=== PATIENT | female | born 1940 | race Caucasian/White ===

== ENCOUNTER 2019-07-04 11:44 | Inpatient (IN) | payer MEDICARE, OTHER, SELFPAY ==
[2019-07-04] VITALS (11 sets, daily range): BP systolic 119–226; BP diastolic 44–104; PULSE 59–85; RESP 16–20; TEMP 36.8–36.9; O2SAT 92–96; BMI 26.0
--- NOTE | 2019-07-04 12:48 | ED_ITS ---
Entered by Valeria Solis, acting as scribe for HPI - General Adult General: Chief complaint: General Medical Stated complaint: [place] sent her over for high BP Time Seen by Provider: 07/04/19 12:48 Source: patient and family Mode of arrival: ambulatory Limitations: no limitations History of Present Illness: HPI narrative: 79 yo female presents with high blood pressure. pt states she was sent by PCP clinic for high blood pressure. pt has a little pain to her right side. pt states nothing else hurts and she has no other symptoms at this time. pt states nothing makes this better or worse. complaint: high blood pressure Onset (ago): day(s) (today) Severity: mild Pain Consistency: other (no pain) Relieving factors: none Exacerbating factors: none Associated symptoms: Deny chest pain, dyspnea, malaise, nausea, rash or vomiting Treatments prior to arrival: none Review of Systems Const: Denies: fever, chills, body aches, change in appetite, fatigue or malaise ENMT: Denies: throat pain, ear pain, nasal discharge or nasal congestion Card: Denies: chest pain, edema, shortness of breath on exertion or shortness of breath when lying down Resp: Denies: shortness of breath, productive cough or non-productive cough GI: Denies: abdominal pain, nausea, vomiting, vomiting blood, coffee grounds in vomit, diarrhea, constipation, bloating, blood in stool or black tarry stool : Denies: flank pain, difficulty urinating, painful urination, urinary frequency or urinary urgency Skin/Breast: Denies: rash or itching PFSH ED PFSH: Statuses (acute, chronic, etc) shown below reflect problem list status as previously entered and may not be historically accurate Medical History Chronic low back pain (Acute) Coronary artery disease (Acute) GERD (gastroesophageal reflux disease) (Acute) History of chronic hypertension (Acute) History of gallstones (Acute) History of hypothyroidism (Acute) History of GA (myocardial infarction) (Acute) History of pneumonia (Acute) Surgical History History of heart artery stent (Acute) History of tubal ligation (Acute) Family History (Updated 07/04/19 @ 13:21 by Valeria Solis) Other CAD (coronary artery disease) Hypertension Social History Smoking and tobacco status: never smoked Physical Exam Const: COMMON NORMALS: no apparent distress GENERAL APPEARANCE: cooperative and comfortable ORIENTATION/CONSCIOUSNESS: Yes awake, Yes oriented to person, Yes oriented to place and Yes oriented to time HENMT: COMMON NORMALS: normocephalic, head/scalp atraumatic, hearing grossly normal bilaterally, external ears normal, EAC's normal, TM's normal bilaterally, nasal mucous membranes and turbinates normal, moist oral mucous membranes and oropharynx normal HEAD & SCALP: normocephalic and atraumatic NOSE: nasal mucous membranes and turbinates normal EXTERNAL EAR: Yes external ears normal EXTERNAL AUDITORY CANAL: EAC's normal TYMPANIC MEMBRANE: TM's normal bilaterally Eye: COMMON NORMALS: PERRL, EOMs intact bilaterally, conjunctivae normal and no scleral icterus CONJUNCTIVA: Yes conjunctivae normal PUPIL: Yes PERRL Neck/C-Spine: COMMON NORMALS: full ROM, no lymphadenopathy, supple and no JVD Lymph: LYMPHATIC: no lymphadenopathy noted and no lymphedema noted Resp: COMMON NORMALS: normal respiratory effort, no retractions, no use of accessory muscles and clear to auscultation bilaterally AUSCULTATION: clear to auscultation bilaterally Cardio: COMMON NORMALS: no JVD, regular rate, regular rhythm and no murmurs RATE: regular rate RHYTHM: regular rhythm Extremity: COMMON NORMALS: normal to inspection, normal capillary refill, no clubbing, cyanosis or edema, no calf tenderness and no pedal edema Neuro: SENSORIUM/ORIENTATION: Yes oriented to person, Yes oriented to place an d Yes oriented to time Skin: COMMON NORMALS: no rashes or lesions noted GENERAL SKIN EXAM: no r ashes or lesions noted Course ED course: Patient has multiple medications including hydralazine and clonidine that she states she cannot take she is already on an ARB her creatinine is elevated some from it has in the what it is been in the past. Despite several oral medications were unable to get her blood pressure down. We will go ahead and admit her she has significantly elevated blood pressure will require sodium nitroprusside to lower we will put her in the ICU. Discussed Dr. Bui. Vital Signs: Vital signs: Vital Signs Temperature 98.6 F 07/05/19 16:00 Pulse Rate 57 L 07/05/19 16:00 Respiratory Rate 20 H 07/05/19 16:00 Blood Pressure 156/58 07/05/19 16:00 Pulse Oximetry 95 07/05/19 16:00 [facility] - General Adult Lab Data: Labs: Lab Results 07/04/19 07/04/19 07/04/19 Range/Units 13:17 13:17 13:17 WBC 5.8 (4.0-10.0) 10^3/ uL RBC 3.89 L (4.1-5.3) 10^6/u L Hgb 12.2 (11.5-15.3) g/dL Hct 38.8 (37.0-47.0) % MCV 99.7 H (81-99) fL MCH 31.4 (28.0-34.0) pg MCHC 31.4 (30.0-36.0) g/dL RDW 13.0 (12.1-15.1) % Plt Count 229 (130-400) 10^3/c mm MPV 10.9 H (7.4-10.4) fL Neut % (Auto) 61.2 % Lymph % (Auto) 26.1 % [place] % (Auto) 8.3 % Eos % (Auto) 3.0 % Baso % (Auto) 1.2 % Neut # (Auto) 3.5 (1.8-7.7) 10^3/u L Lymph # (Auto) 1.5 (0.8-4.8) 10^3/u L [place] # (Auto) 0.5 (0.2-0.9) 10^3/u L Eos # (Auto) 0.2 (0.0-0.8) 10^3/u L Baso # (Auto) 0.1 (0.0-0.1) 10^3/u L Nucleated RBC % (a uto) 0 % Nucleated RBCs # 0.0 /100WBC Sodium 138 (136-145) mmol/L Potassium 4.6 (3.5-5.1) mmol/L Chloride 101 (98-107) mmol/L Carbon Dioxide 24 (22-29) mmol/L Anion Gap 17.6 (5-19) BUN 23 (8-23) mg/dL Creatinine 1.4 H (0.5-0.9) mg/dL Glucose 101 (74-106) mg/dL Calcium 9.9 (8.8-10.2) mg/Dl Total Bilirubin 0.5 (0.15-1.2) mg/dL AST 17 (0-32) U/L ALT 8 (0-33) U/L Alkaline Phosphata se 104 (35-105) IU/L Troponin T Baselin e 31 H (0-10) ng/mL Troponin T 120 Min [place] (0-10) ng/mL Delta Troponin T (0-10) ABS# Total Protein 7.6 (6.6-8.7) g/dL Albumin 4.4 (3.5-5.2) g/dL Globulin 3.2 (1.3-4.6) g/dL 07/04/19 Range/Units 15:52 WBC (4.0-10.0) 10^3/ uL RBC (4.1-5.3) 10^6/u L Hgb (11.5-15.3) g/dL Hct (37.0-47.0) % MCV (81-99) fL MCH (28.0-34.0) pg MCHC (30.0-36.0) g/dL RDW (12.1-15.1) % Plt Count (130-400) 10^3/c mm MPV (7.4-10.4) fL Neut % (Auto) % Lymph % (Auto) % [place] % (Auto) % Eos % (Auto) % Baso % (Auto) % Neut # (Auto) (1.8-7.7) 10^3/u L Lymph # (Auto) (0.8-4.8) 10^3/u L [place] # (Auto) (0.2-0.9) 10^3/u L Eos # (Auto) (0.0-0.8) 10^3/u L Baso # (Auto) (0.0-0.1) 10^3/u L Nucleated RBC % (a uto) % Nucleated RBCs # /100WBC Sodium (136-145) mmol/L Potassium (3.5-5.1) mmol/L Chloride (98-107) mmol/L Carbon Dioxide (22-29) mmol/L Anion Gap (5-19) BUN (8-23) mg/dL Creatinine (0.5-0.9) mg/dL Glucose (74-106) mg/dL Calcium (8.8-10.2) mg/Dl Total Bilirubin (0.15-1.2) mg/dL AST (0-32) U/L ALT (0-33) U/L Alkaline Phosphata se (35-105) IU/L Troponin T Baselin e (0-10) ng/mL Troponin T 120 Min [place] 28.44 H (0-10) ng/mL Delta Troponin T -2.56 L (0-10) ABS# Total Protein (6.6-8.7) g/dL Albumin (3.5-5.2) g/dL Globulin (1.3-4.6) g/dL Imaging Data^: CXR: Radiologist's impression: [place] [address] XRay Report Signed Patient: Kati Chris JMR#: [id number] : 2Acct:[id number] Age/Sex: 79 / FADM Date: 07/04/19 Loc: ER Attending Dr: Ordering Physician: Sukumar Arrington DO Date of Service: 07/04/19 Procedure(s): XR chest 1V portable [id number] Accession Number(s): [id number] Report Number: [id number] WS: [id number] CHEST XRAY TECHNIQUE: Portable chest. CLINICAL INFORMATION: accelerated HTN COMPARISON: FINDINGS: Heart: Normal cardiac silhouette. Lungs: Chronic emphysematous changes. No acute pulmonary infiltrates. No focal pneumonia. Bones: Normal visualized bony structures. XR/XR chest 1V portable [id number] IMPRESSION: No acute chest findings Dictated By:Soctt Gonzalez MD Signed By:Scott Gonzalez MDSigned Date/Time:07/04/19 1343 DD/ 1341 Discharge Plan Discharge Patient Disposition: Admitted As Inpatient Admit Provider: Doe Bui Discharge Date/Time: 07/04/19 20:04 Coding Level of Care Code ED Handbag Parts Cutter for Chg Fwd Exam Problem Focused The documentation recorded by the Will ward Bridget Annette, accurately reflects the service I personally performed and the decisions made by me, Sukumar Arrington, Jul 04, 2019 11:44
--- NOTE | 2019-07-04 13:05 | ECG_ITS ---
Measurements Intervals [place] Rate: 60 P: 61 IN: 169 QRS: -46 QRSD: 161 T: 92 QT: 472 QTc: 472 SINUS RHYTHM MARKED LEFT AXIS DEVIATION [QRS AXIS < -30] LEFT BUNDLE BRANCH BLOCK [120+ ms QRS DURATION, 80+ ms Q/S IN V1/V2, 85+ ms R IN I/aVL/V5/V6] Compared to ECG 09/04/2018 21:17:40 No significant changes Electronically Signed On 07-04-2019 15:39:58 LVN by Tone Ludwig M.D. [id number]
--- NOTE | 2019-07-04 13:05 | XR_ITS ---
WS: [id number] CHEST XRAY TECHNIQUE: Portable chest. CLINICAL INFORMATION: accelerated HTN COMPARISON: FINDINGS: Heart: Normal cardiac silhouette. Lungs: Chronic emphysematous changes. No acute pulmonary infiltrates. No focal pneumonia. Bones: Normal visualized bony structures. XR/XR chest 1V portable [id number] IMPRESSION: No acute chest findings
[2019-07-04 13:22] LABS: Basophils # 0.1 10^3/uL (0.0-0.1); Basophils % 1.2 %; Eosinophils # 0.2 10^3/uL (0.0-0.8); Hematocrit 38.8 % (37.0-47.0); Hemoglobin 12.2 g/dL (11.5-15.3); Lymphocytes # 1.5 10^3/uL (0.8-4.8); Lymphocytes % 26.1 %; Mean Corpuscular HGB Conc 31.4 g/dL (30.0-36.0); Mean Corpuscular Hemoglobin 31.4 pg (28.0-34.0); Mean Corpuscular Volume 99.7 fL (81-99); Mean Platelet Volume 10.9 fL (7.4-10.4); Monocytes # 0.5 10^3/uL (0.2-0.9); Monocytes % 8.3 %; Neutrophils # 3.5 10^3/uL (1.8-7.7); Neutrophils % 61.2 %; Nucleated Red Blood Cells % 0 %; Platelet Count 229 10^3/cmm (130-400); Red Blood Count 3.89 10^6/uL (4.1-5.3); White Blood Count 5.8 10^3/uL (4.0-10.0)
[2019-07-04] MEDS: amlodipine 10 mg Tablet PO (13:41)
[2019-07-04 13:45] LABS: Alanine Aminotransferase 8 U/L (0-33); Albumin Level 4.4 g/dL (3.5-5.2); Alkaline Phosphatase 104 IU/L (35-105); Anion Gap 17.6 (5-19); Aspartate Amino Transferase 17 U/L (0-32); Blood Urea Nitrogen 23 mg/dL (8-23); Calcium 9.9 mg/Dl (8.8-10.2); Carbon Dioxide 24 mmol/L (22-29); Chloride 101 mmol/L (98-107); Globulin 3.2 g/dL (1.3-4.6); Glucose 101 mg/dL (74-106); Potassium 4.6 mmol/L (3.5-5.1); Sodium 138 mmol/L (136-145); Total Bilirubin 0.5 mg/dL (0.15-1.2); Total Protein 7.6 g/dL (6.6-8.7)
[2019-07-04 13:46] LABS: Troponin(5th) Baseline 31 ng/mL (0-10)
--- NOTE | 2019-07-04 14:47 | PC.PHAR ---
rx filled on 06/04/19 for bactrim ds pt states it made her joints have pain and painful swallowing, pt also had nitrofurantoin mono filled on 05/28/19 pt states it made her stomach hurt
[2019-07-04] MEDS: isosorbide mononitrate ER 60 mg Tablet PO (15:51)
[2019-07-04 16:30] LABS: Troponin 5 2HR 28.44 ng/mL (0-10)
[2019-07-04 16:44] LABS: Troponin 5 2HR Delta -2.56 ABS# (0-10)
--- NOTE | 2019-07-04 19:05 | ECG_ITS ---
Measurements Intervals [place] Rate: 76 P: 53 VT: 163 QRS: -28 QRSD: 155 T: 101 QT: 442 QTc: 498 SINUS RHYTHM LEFT BUNDLE BRANCH BLOCK [120+ ms QRS DURATION, 80+ ms Q/S IN V1/V2, 85+ ms R IN I/aVL/V5/V6] WARNING: DATA QUALITY MAY AFFECT INTERPRETATION Compared to ECG 07/04/2019 13:20:57 Left-axis deviation no longer present Electronically Signed On 07-05-2019 14:02:08 FITNESS SUPERVISOR by Susan Marquez M.D. [email or web address]
--- NOTE | 2019-07-04 19:48 | PC.NURSE ---
pt placed in gown. no further needs at this time.
--- NOTE | 2019-07-04 20:00 | PC.NURSE ---
Received patient from [place] from ER via stretcher. Patient alert and orientated x 3 and had Nitroprusside running at 1 mcg through and IV in the right wrist. Patient steady to feet with minimal assistance and transferred to bed with no problems. No skin issues noted, patient wears brief for mild incontinence.
--- NOTE | 2019-07-04 20:15 | CTR_ITS ---
PROCEDURE INFORMATION: Exam: CT Head Without Contrast Exam date and time: 07/04/2019 9:34 PM Age: 79 years old Clinical indication: Other: Hypertensive crisis TECHNIQUE: Imaging protocol: Computed tomography of the head without contrast. Total DLP: 860.65 mGy-cm Radiation optimization: All CT scans at this facility use at least one of these dose optimization techniques: automated exposure control; mA and/or kV adjustment per patient size (includes targeted exams where dose is matched to clinical indication); or iterative reconstruction. COMPARISON: No relevant prior studies available. FINDINGS: Brain: No acute intracranial hemorrhage or mass effect. There is very mild decreased attenuation in the periventricular white matter, likely from microvascular disease. No definite acute infarct by CT. MRI could be more sensitive/specific for detection, as clinically directed. Ventricles: Ventricle size is normal for age. Bones/joints: No definite acute skull fracture. Sinuses: Mild focal opacity in left ethmoid sinus. 12 mm retention cyst or polyp in the sphenoid sinus. Included paranasal sinuses otherwise appear essentially clear. Mastoid air cells: No significant acute finding. CT/CT head wo con* [id number] IMPRESSION: 1. No acute intracranial hemorrhage or mass effect. 2. No definite acute infarct by CT, see above. 3. Other findings discussed above. Radiation Dose CTDIVOL = (mGy): DLP = 860.65 (mGy-cm)
[2019-07-04 23:08] LABS: Troponin 5 6HR 28.37 ng/L (0-10)
--- NOTE | 2019-07-04 23:40 | PC.NURSE ---
Patient taken to CT by myself via wheel chair on continuous monitoring. Vitals signs stable and Nitroprusside running at 1 mcg.
--- NOTE | 2019-07-04 23:55 | PC.NURSE ---
Patient brought back from CT via wheel chair. Blood pressure became elevated in route back, the reading was 199/65; nitroprusside increased to 2 mcg. Patient is stable and vitals look great. After increasing the nitroprusside to 2 mcg, BP came down to 129/55
[2019-07-05] VITALS (17 sets, daily range): BP systolic 121–182; BP diastolic 42–94; PULSE 57–96; RESP 16–22; TEMP 37–37.2; O2SAT 92–95
[2019-07-05] MEDS: HYDROcodone-acetaminophen 7.5-325 mg Tablet 1 TAB PO ×3 (01:11→17:45)
[2019-07-05 05:31] LABS: Basophils % 0.6 %; Eosinophils # 0.1 10^3/uL (0.0-0.8); Eosinophils % 1.5 %; Hematocrit 35.9 % (37.0-47.0); Hemoglobin 11.7 g/dL (11.5-15.3); Lymphocytes # 1.3 10^3/uL (0.8-4.8); Lymphocytes % 19.3 %; Mean Corpuscular HGB Conc 32.6 g/dL (30.0-36.0); Mean Corpuscular Hemoglobin 32.8 pg (28.0-34.0); Mean Corpuscular Volume 100.6 fL (81-99); Mean Platelet Volume 11.6 fL (7.4-10.4); Monocytes # 0.7 10^3/uL (0.2-0.9); Monocytes % 10.1 %; Neutrophils # 4.7 10^3/uL (1.8-7.7); Neutrophils % 68.2 %; Nucleated Red Blood Cells % 0 %; Platelet Count 235 10^3/cmm (130-400); Red Blood Count 3.57 10^6/uL (4.1-5.3); Red Cell Distribution Width 13.2 % (12.1-15.1); White Blood Count 6.8 10^3/uL (4.0-10.0)
[2019-07-05 05:50] LABS: Alanine Aminotransferase 10 U/L (0-33); Albumin Level 4.5 g/dL (3.5-5.2); Alkaline Phosphatase 89 IU/L (35-105); Anion Gap 17.3 (5-19); Aspartate Amino Transferase 18 U/L (0-32); Blood Urea Nitrogen 23 mg/dL (8-23); Calcium 9.6 mg/Dl (8.8-10.2); Carbon Dioxide 23 mmol/L (22-29); Chloride 101 mmol/L (98-107); Glucose 126 mg/dL (74-106); Phosphorus 3.7 mg/dL (2.5-4.5); Potassium 4.3 mmol/L (3.5-5.1); Sodium 137 mmol/L (136-145); Total Bilirubin 0.7 mg/dL (0.15-1.2); Total Protein 6.5 g/dL (6.6-8.7)
--- NOTE | 2019-07-05 08:40 | PM.HP ---
Providers/Chief Complaint Admitting Physician: Doe Bui MD Primary Care Provider: Doe Bui MD Chief Complaint: [facility] sent her over for high BP History of Present Illness Kati Chris is a 79 year old female with past medical history of hypertension, coronary artery disease, hypothyroidism, chronic low back pain, GERD who presented to my clinic on 07/04/2019 with elevated blood pressure. Her blood pressure was 240/95 in clinic. For this reason she was sent to the emergency department. In the emergency department the patient's blood pressure would not decrease below 200 systolic. For this reason she was started on a nitroprusside drip and admitted to hospital. Currently the patient is feeling nauseous. She denies any significant diarrhea. She denies any chest pains and shortness of breath. She denies any headache. The patient has not tolerated other medications well in the past for her blood pressure. Amlodipine caused a significant rash, hydralazine causes her to have significant tremors, and clonidine has caused rebound hypertension. She is currently on felodipine 10 mg daily, telmisartan 80 mg once daily and isosorbide 60 mg once daily. Review of Systems Const: Denies: fever Card: Denies: chest pain or palpitations Resp: Denies: shortness of breath, productive cough or wheezing GI: Reports: abdominal pain and nausea : Denies: flank pain or painful urination Medications/Allergies Home Medications Medication Instructions Recorded Confirmed Last Taken Type aspirin 325 mg PO DAILY 07/04/19 07/04/19 07/04/19 History clonidine HCl 0.1 mg PO TID 07/04/19 07/04/19 07/04/19 08:00 History clopidogrel [Plavix] 75 mg PO DAILY 07/04/19 07/04/19 07/04/19 History estradiol 1 mg PO DAILY 07/04/19 07/04/19 06/29/19 History felodipine 10 mg PO DAILY 07/04/19 07/04/19 07/03/19 History hydrocodone-acetaminophen [[place]] 1 tab PO QID PRN 07/04/19 07/04/19 07/04/19 History isosorbide mononitrate 60 mg PO DAILY 07/04/19 07/04/19 07/04/19 History krill oil 1,000 mg PO DAILY 07/04/19 07/04/19 07/04/19 History levothyroxine 75 mcg PO DAILY 07/04/19 07/04/19 07/04/19 History multivitamin 1 tab PO DAILY 07/04/19 07/04/19 07/04/19 History potassium chloride 20 meq PO DAILY 07/04/19 07/04/19 07/03/19 History telmisartan 80 mg PO DAILY 07/04/19 07/04/19 07/04/19 History torsemide 5 mg PO DAILY 07/04/19 07/04/19 07/04/19 History Allergies Allergy/AdvReac Type Severity Reaction Status Date / Time clonidine [From Catapres] Allergy ALGY-Bliste Verified 07/04/19 12:47 r PFSH Acute PFSH: Statuses (acute, chronic, etc) shown below reflect problem list status as previously entered and may not be historically accurate Medical History Chronic low back pain (Acute) Coronary artery disease (Acute) GERD (gastroesophageal reflux disease) (Acute) History of chronic hypertension (Acute) History of gallstones (Acute) History of hypothyroidism (Acute) History of OR (myocardial infarction) (Acute) History of pneumonia (Acute) Surgical History History of heart artery stent (Acute) History of tubal ligation (Acute) Family History (Updated 07/04/19 @ 13:21 by Valeria Solis) Other CAD (coronary artery disease) Hypertension Social History Smoking and tobacco status: never smoked Vitals/I&O/Wt Last Vital Signs Temp 98.9 F 07/05/19 06:00 Pulse 85 07/05/19 08:30 Resp 20 H 07/05/19 08:30 BP 150/69 07/05/19 08:30 Pulse Ox 95 07/05/19 08:30 07/04/19 07/05/19 07/05/19 22:59 06:59 14:59 Intake Total 252 / 252 352.000 / 352.000 Balance 252 / 252 352.000 / 352.000 Weight last 48 hrs Weight 64.495 kg Weight 62.596 kg Physical Exam HENMT: MOUTH: oral and palatal mucosa normal and tongue normal Resp: COMMON NORMALS: normal respiratory effort and no retractions EFFORT & INSPECTION: No tachypneic and No respiratory distress AUSCULTATION: no crackles, no rales, no rhonchi and no wheezes Cardio: RHYTHM: regular rhythm HEART SOUNDS: S1 normal and no murmurs GI: COMMON NORMALS: normal to inspection, nondistended, normoactive bowel sounds INSPECTION: Yes normal to inspection OTHER: Mild pain in the right mid abdomen without rebound tenderness. Extremity: OTHER: Trace edema in the bilateral lower extremities A&P Additional A&P Information Additional A&P Information: 1. Hypertensive urgency -the patient is currently on a nitroprusside drip. This has been increased up to 4 mcg. We will restart her home medications of felodipine 10 mg and losartan 100 mg here. Continue with isosorbide mononitrate 60 mg. I will add prazosin 1 mg twice daily and atenolol 25 mg once a day. The hope will be that we can get her blood pressure into a range that we can start weaning the drip. If we continue to have problems with this, I will contact cardiology for further recommendations. 2. Coronary artery disease -stable at this time. Troponins are currently not showing signs of an acute OR. 3. Hypothyroidism -stable. 4. Prophylaxis -Lovenox Attestations Medical Necessity Statement*: The patient will be here for greater than 2 midnight stay due to treatment of hypertensive urgency. Critical Care Time: Critical care time: 30 - 74 mins Coding Level of Care Code Acute Freight Service Inspector for Lawrence Begum
[2019-07-05] MEDS: atenolol 50 mg Tablet 25 MG PO (09:05)
[2019-07-05] MEDS: aspirin 325 mg Tablet PO (09:06)
[2019-07-05] MEDS: multivitamin therapeutic Tablet 1 TAB PO (09:06)
[2019-07-05] MEDS: clopidogrel 75 mg Tablet PO (09:06)
[2019-07-05] MEDS: levothyroxine 150 mcg Tablet 75 MCG PO (09:06)
[2019-07-05] MEDS: losartan 50 mg Tablet 100 MG PO (09:07)
[2019-07-05] MEDS: isosorbide mononitrate ER 60 mg Tablet PO (09:07)
[2019-07-05] MEDS: enoxaparin 40 mg/0.4 mL Syringe SUBCUT (09:07)
[2019-07-05] MEDS: ondansetron 2 mg/ML SDV 2 mL 4 MG IVP (09:07)
[2019-07-05] MEDS: prazosin 1 mg Capsule PO ×2 (09:14→17:45)
--- NOTE | 2019-07-05 10:45 | ECG_ITS ---
Measurements Intervals [place] Rate: 59 P: 55 CA: 174 QRS: -39 QRSD: 160 T: 161 QT: 493 QTc: 489 SINUS BRADYCARDIA MARKED LEFT AXIS DEVIATION [QRS AXIS < -30] LEFT BUNDLE BRANCH BLOCK [120+ ms QRS DURATION, 80+ ms Q/S IN V1/V2, 85+ ms R IN I/aVL/V5/V6] Compared to ECG 07/04/2019 13:20:57 Sinus rhythm no longer present Electronically Signed On 07-05-2019 13:47:21 RESIDENT PROGRAMS ASSISTANT by Susan Marquez M.D. [id number]
--- NOTE | 2019-07-05 20:15 | USCV_ITS ---
Kati Chris Age: 79 Gender: F : 1940 Exam Date: 07/05/2019 06:00 Ordering Phys: Sukumar Arrington DO Technologist: Grace Cespedes Exam Location: [facility] [place] Indication: HTN Aortic Velocity @ SMA (cm/s) 84.6 RIGHT KIDNEY LEFT KIDNEY Velocity (cm/s) Velocity (cm/s) Sys/Pacheco Sys/Pacheco Resistive Index Resistive Index 40.2 / 9.0 0.78 Proximal Renal Artery 29.0 / 8.1 0.72 63.1 / 12.5 0.80 Mid Renal Artery 31.7 / 7.5 0.76 57.5 / 11.8 0.80 Distal Renal Artery 39.7 / 9.7 0.76 24.9 / 8.3 0.67 Hilar 55.3 / 9.1 0.83 19.1 / 6.0 0.69 Upper Pole 15.6 / 4.3 0.72 17.6 / 6.9 0.61 Mid Pole 23.9 / 7.5 0.69 24.8 / 6.6 0.73 Lower Pole 38.7 / 8.1 0.79 0.70 Renal Aortic Ratio 0.47 Accleration Index (cm/sec2) 418.00 Hilar 3855.0 0 336.00 Upper Pole 309.00 297.00 Mid Pole 359.00 452.00 Lower Pole 515.00 98.3 Kidney Length (mm) 84.5 FINDINGS ?SOLID LESION LT K? CONCLUSIONS 1. Suggestion of 2.4 x1.7cm hypoechoic lesion left kidney is indeterminate. Recommend further evaluation with contrast CT abdomen/pelvis. Previous CT 2018 reviewed and demonstrates cortical lobulation lower pole, and recommend further evaluation of todays lesion with CT for comparison. 2. Normal color flow Doppler, peak systolic velocities, Renal/Aortic peak systolic velocity ratio and resistive indices noted in bilateral main, segmental and interlobar renal arteries. Scott Gonzalez MD (Electronically Signed) Final Date: 05 July 2019 09:10 S
[2019-07-05 23:03] LABS: Add Urine Microscopic? NO
[2019-07-05 23:12] LABS: Bilirubin Urine Neg (NEGATIVE); Blood Urine Neg (Negative); Glucose Urine UA Norm (Normal); Ketones Urine Negative (Negative); Leukocyte Esterase Urine Negative (Negative); Nitrate Urine Negative (Negative); Protein Urine Neg (Negative); Urine Appearance Clear (CLEAR); Urine Color Straw (Yellow); Urobilinogen Urine Norm (Negative); pH Urine 5 (5-7)
[2019-07-06] VITALS (14 sets, daily range): BP systolic 100–206; BP diastolic 42–82; PULSE 53–60; RESP 12–57; TEMP 36.4–37.4; O2SAT 92–97
[2019-07-06] MEDS: HYDROcodone-acetaminophen 7.5-325 mg Tablet 1 TAB PO ×4 (03:35→21:32)
[2019-07-06 04:57] LABS: Basophils # 0.1 10^3/uL (0.0-0.1); Basophils % 1.1 %; Eosinophils # 0.2 10^3/uL (0.0-0.8); Eosinophils % 3.8 %; Hematocrit 35.3 % (37.0-47.0); Hemoglobin 11.5 g/dL (11.5-15.3); Lymphocytes # 1.7 10^3/uL (0.8-4.8); Lymphocytes % 32.8 %; Mean Corpuscular HGB Conc 32.6 g/dL (30.0-36.0); Mean Corpuscular Hemoglobin 33.3 pg (28.0-34.0); Mean Corpuscular Volume 102.3 fL (81-99); Mean Platelet Volume 11.9 fL (7.4-10.4); Monocytes # 0.6 10^3/uL (0.2-0.9); Monocytes % 11.4 %; Neutrophils # 2.7 10^3/uL (1.8-7.7); Neutrophils % 50.7 %; Nucleated Red Blood Cells % 0 %; Platelet Count 198 10^3/cmm (130-400); Red Blood Count 3.45 10^6/uL (4.1-5.3); Red Cell Distribution Width 13.3 % (12.1-15.1); White Blood Count 5.3 10^3/uL (4.0-10.0)
[2019-07-06 05:56] LABS: Alanine Aminotransferase 10 U/L (0-33); Albumin Level 3.8 g/dL (3.5-5.2); Alkaline Phosphatase 83 IU/L (35-105); Anion Gap 15.7 (5-19); Aspartate Amino Transferase 16 U/L (0-32); Blood Urea Nitrogen 22 mg/dL (8-23); Calcium 9.5 mg/Dl (8.8-10.2); Carbon Dioxide 23 mmol/L (22-29); Chloride 101 mmol/L (98-107); Globulin 2.5 g/dL (1.3-4.6); Glucose 103 mg/dL (74-106); Magnesium 2.2 mg/dL (1.7-2.3); Phosphorus 3.8 mg/dL (2.5-4.5); Potassium 4.7 mmol/L (3.5-5.1); Sodium 135 mmol/L (136-145); Total Bilirubin 0.4 mg/dL (0.15-1.2); Total Protein 6.3 g/dL (6.6-8.7)
--- NOTE | 2019-07-06 08:00 | CT_ITS ---
WS: [id number] CT ABDOMEN PELVIS TECHNIQUE: Contrast-enhanced CT of the abdomen and pelvis with coronal and sagittal reformatted image s. CLINICAL INFORMATION: Renal mass COMPARISON: CT 1 9,019 DLP: 522.[address] scans at [facility] use at least one of these dose optimization techniques: automat ed exposure control; mA and/or kV adjustment per patient size (includes targeted exams where dose is matched to clinical indication); or iterative reconstruction. FINDINGS: Cortical lobulation lower pole left kidney is unchanged since July 05, 2018. No definite focal mas s. Stable 6 mm left renal cyst. No hydronephrosis. Bilateral renal cortical atrophy. Stable small right cortical cyst. Normal liver. Dense cholelithiasis. No gallbladder wall thickening. Pancreatic fatty atrophy. Sigmoid diverticulosis. No evidence of acute diverticulitis. No evidence of small or large bowel obst ruction. No free fluid in the pelvis. Dense vascular calcification. Tortuous abdominal aorta. Lung ba ses are well aerated. Lumbar scoliosis convex right. CT/CT abdomen pelvis w con* [id number] IMPRESSION: 1. Stable lobulation lower pole left kidney with normal renal parenchymal enha ncement. No focal mass. 2. Left renal cortical atrophy. No hydronephrosis. 3. Dense cholelithiasis. No gallbladder wall thickening or pericholecystic flu id. 4. Densely calcified abdominal aorta. 5. No abdominal lymphadenopathy. 6. No free fluid in the pelvis. 7. Diverticulosis. 8. Lumbar scoliosis convex right.
[2019-07-06] MEDS: iodixanol 320 mg/mL 100mL Btl IV (08:53)
[2019-07-06] MEDS: atenolol 50 mg Tablet 25 MG PO (09:16)
[2019-07-06] MEDS: aspirin 325 mg Tablet PO (09:16)
[2019-07-06] MEDS: enoxaparin 40 mg/0.4 mL Syringe SUBCUT (09:17)
[2019-07-06] MEDS: clopidogrel 75 mg Tablet PO (09:17)
[2019-07-06] MEDS: isosorbide mononitrate ER 60 mg Tablet PO (09:18)
[2019-07-06] MEDS: prazosin 1 mg Capsule PO ×3 (09:52→21:32)
[2019-07-06] MEDS: multivitamin therapeutic Tablet 1 TAB PO (09:52)
[2019-07-06] MEDS: levothyroxine 150 mcg Tablet 75 MCG PO (09:52)
[2019-07-06] MEDS: losartan 50 mg Tablet 100 MG PO (09:54)
--- NOTE | 2019-07-06 12:33 | PM.PN ---
Subjective Subjective: Interval history: The patient feels that she was able to rest last night. She has not had any further nausea or vomiting. The patient denies any chest pains or shortness of breath. She denies any abdominal pain at this time. Medications: Reviewed: Yes Vitals/I&O/Wt Last Vital Signs Temp 97.6 F 07/06/19 11:16 Pulse 53 L 07/06/19 11:16 Resp 15 07/06/19 11:16 BP 100/63 07/06/19 11:16 Pulse Ox 97 07/06/19 11:16 07/05/19 07/06/19 07/06/19 22:59 06:59 14:59 Intake Total 720 / 1771.530 0 / 1771.530 302.563 / 302.563 Balance 720 / 1771.530 0 / 1771.530 302.563 / 302.563 Weight last 48 hrs Weight 65.062 kg Weight 64.495 kg Weight 62.596 kg Physical Exam Narrative: EXAM NARRATIVE: Mouth: Pharynx without erythema or lesions. Cardiac: Regular rhythm with bradycardia. No murmurs appreciated. Lungs: Clear to auscultation bilaterally. No wheezes crackles or rhonchi. Abdomen: Soft, nontender, no rebound tenderness or bloating. No hepatosplenomegaly appreciated. Extremities: Trace pitting edema in the bilateral lower extremities. A&P Additional A&P Information Additional A&P Information: 1. Hypertensive urgency - the patient is currently on a nitroprusside drip. This has been decreased down to 1 mcg. We will continue her home medications of felodipine 10 mg and losartan 100 mg here. Continue with isosorbide mononitrate 60 mg. Her blood pressure is improving with the addition of prazosin and atenolol. Continue with atenolol 25 mg once daily. Increase prazosin to 1 mg 3 times daily. If her blood pressure is improving sufficiently, we will stop the nitroprusside drip and discharge home. Possibly home in the next 1 to 2 days depending on her course. The patient's renal arteries do not show any signs of stenosis. Head CT is negative. 2. Coronary artery disease -stable at this time. Troponins are currently not showing signs of an acute [place]. The patient does not have any chest pains. 3. Hypothyroidism -stable. 4. Left renal mass -this is stable compared to CT scan done 1 year ago. 5. Chronic kidney disease -stable at this time. 6. Prophylaxis -Lovenox Attestations Medical Necessity Statement*: The patient continues to need inpatient care for hypertensive urgency as she is on an IV drip. We will plan to discharge her home once she is off of the drip and stable. Time Spent in Patient Care: 16 - 35 minutes Critical Care Time: 30 minutes Coding Level of Care Code Acute Injection Machine Operator for Lawrence Begum
--- NOTE | 2019-07-06 15:35 | PC.CHAP ---
Pastoral Care Encounter/Spiritual Assessment Type of Contact [] Declined professor of journalism visit [] Patient/Family/Request visit [] Outpatient visit [] Follow-up visit [] Physician referral [] Code/Alert [x] Routine visit [] Staff referral [] Actively dying [] Patient sleeping [] Family support [] [] Out of room [] Palliative care [] [] Receiving care in room [] Pre-surgical visit [] Trauma [] Long length of stay [] ICU visit [] Other: Relational/Emotional Strength [x] Patient feels connected with others/family/visitors/staff [] Distress [] Loneliness/isolation [] Abandonment Spirituality of Patient [x] Person of Radha [] Attends Hindu of their Radha[x] Believes in Prayer [] Reads Bible or Religion materials [] There are Spiritual issues to be addressed Art Professor Interventions [x] Prayer [x] Active listening [x] Non-anxious presence [x] Spiritual/emotional support [] Crisis/trauma care [] Spiritual counseling [] Bereavement support [] Provided bereavement packet [] Provided Bible/devotional materials [] Provided toy/stuffed animal, coloring book to patient or family member [] Completed spiritual assessment [] Provided Communion [] Anointing/[place] [] Salvation [] Other: Impact on Illness or Injury [] Angry [] Fearful [] Anxious [] Often cries [] Exhaustion [] Unable to work [] Unable to attend rastafari [] Unable to walk/stand [] Unable to read [] Unable to drive [] Unable to eat/drink [] Unable to sleep [] Unable to be with family [] Other: Summary Time spent with patient patient was smiling and sitting up in chair visiting with . patient was in good spirits. 10 min.
[2019-07-07] VITALS (14 sets, daily range): BP systolic 129–229; BP diastolic 56–98; PULSE 54–64; RESP 13–17; TEMP 36.4–36.8; O2SAT 94–97
--- NOTE | 2019-07-07 01:41 | PC.NURSE ---
Nipride gtt restarted at this time.
[2019-07-07] MEDS: HYDROcodone-acetaminophen 7.5-325 mg Tablet 1 TAB PO ×3 (02:38→13:26)
[2019-07-07 04:25] LABS: Basophils # 0.1 10^3/uL (0.0-0.1); Basophils % 0.9 %; Eosinophils # 0.3 10^3/uL (0.0-0.8); Eosinophils % 4.8 %; Hematocrit 35.1 % (37.0-47.0); Lymphocytes # 1.5 10^3/uL (0.8-4.8); Lymphocytes % 28.2 %; Mean Corpuscular HGB Conc 31.3 g/dL (30.0-36.0); Mean Corpuscular Hemoglobin 31.3 pg (28.0-34.0); Mean Platelet Volume 11.6 fL (7.4-10.4); Monocytes # 0.7 10^3/uL (0.2-0.9); Monocytes % 11.9 %; Nucleated Red Blood Cells % 0 %; Platelet Count 203 10^3/cmm (130-400); Red Blood Count 3.51 10^6/uL (4.1-5.3); Red Cell Distribution Width 13.1 % (12.1-15.1); White Blood Count 5.5 10^3/uL (4.0-10.0)
[2019-07-07 04:41] LABS: Alanine Aminotransferase 8 U/L (0-33); Albumin Level 3.7 g/dL (3.5-5.2); Alkaline Phosphatase 91 IU/L (35-105); Anion Gap 15.8 (5-19); Aspartate Amino Transferase 17 U/L (0-32); Blood Urea Nitrogen 22 mg/dL (8-23); Calcium 9.4 mg/Dl (8.8-10.2); Carbon Dioxide 23 mmol/L (22-29); Chloride 100 mmol/L (98-107); Glucose 96 mg/dL (74-106); Potassium 4.8 mmol/L (3.5-5.1); Sodium 134 mmol/L (136-145); Total Bilirubin 0.4 mg/dL (0.15-1.2); Total Protein 6.7 g/dL (6.6-8.7)
[2019-07-07] MEDS: ondansetron 2 mg/ML SDV 2 mL 4 MG IVP (06:44)
[2019-07-07] MEDS: losartan 50 mg Tablet 100 MG PO (08:36)
[2019-07-07] MEDS: isosorbide mononitrate ER 60 mg Tablet PO (08:37)
[2019-07-07] MEDS: levothyroxine 150 mcg Tablet 75 MCG PO (08:37)
[2019-07-07] MEDS: aspirin 325 mg Tablet PO (08:38)
[2019-07-07] MEDS: clopidogrel 75 mg Tablet PO (08:38)
[2019-07-07] MEDS: atenolol 50 mg Tablet 25 MG PO (08:39)
[2019-07-07] MEDS: multivitamin therapeutic Tablet 1 TAB PO (08:40)
[2019-07-07] MEDS: enoxaparin 40 mg/0.4 mL Syringe SUBCUT (08:40)
--- NOTE | 2019-07-07 08:47 | PC.NURSE ---
anxious want iv medication off .. i want to go home i felt good until i came in here now i cant rest and my back hurts.. pain med given and reposition am meds given
--- NOTE | 2019-07-07 09:55 | PC.NURSE ---
up to bathroom requesting blood pressure cuff off need rest nipride back on
--- NOTE | 2019-07-07 10:12 | P.PN_ITS ---
Subjective Subjective: Interval history: Chart reviewed, blood pressure remains poorly controlled despite being on multiple oral antihypertensives. Patient seen and examined, at bedside, has just been taken off the nitroglycerin drip so we will need to continue to monitor her blood pressure. Patient is quite eager to go home this afternoon, discussed need to make sure her blood pressure is controlled off the nitro drip which she is agreeable to. Has not been off nitroglycerin for at least 2 to 3 hours and blood pressure is holding in the 150s systolic. Medications: Reviewed: Yes Medication Review Details: Active Medications Generic Name Dose Route Start Last Admin Trade Name Freq PRN Reason Stop Dose Admin Hydrocodone Bitart /Acetaminophen 1 tab 07/04/19 20:21 07/07/19 08:38 [place] 7.5-325 Mg PO 1 tab QID PRN Administration Pain Aspirin 325 mg 07/05/19 09:00 07/07/19 08:38 Aspirin PO 325 mg DAILY IMMANUEL Administration Atenolol 25 mg 07/05/19 09:00 07/07/19 08:39 Tenormin PO 25 mg DAILY IMMANUEL Administration Clopidogrel Bisulf ate 75 mg 07/05/19 09:00 07/07/19 08:38 Plavix PO 75 mg DAILY IMMANUEL Administration Enoxaparin Sodium 40 mg 07/05/19 09:00 07/07/19 08:40 Lovenox SUBCUT 40 mg Q24H IMMANUEL Administration Felodipine 10 mg 07/05/19 09:00 07/07/19 08:37 Plendil PO 10 mg DAILY IMMANUEL Administration Sodium Nitroprussi de 50 mg/ 252 mls @ 0 mls/h r 07/04/19 17:30 07/07/19 07:08 Dextrose IV 1 mcg/kg/min .Q0M IMMANUEL 18.9 mls/hr Titration Protocol Per Protocol Isosorbide Mononit rate 60 mg 07/05/19 09:00 07/07/19 08:37 Imdur PO 60 mg DAILY IMMANUEL Administration Levothyroxine Sodi um 75 mcg 07/05/19 09:00 07/07/19 08:37 Synthroid PO 75 mcg DAILY IMMANUEL Administration Losartan Potassium 100 mg 07/05/19 09:00 07/07/19 08:36 Cozaar PO 100 mg DAILY IMMANUEL Administration Multivitamins Ther apeutic 1 tab 07/05/19 09:00 07/07/19 08:40 Multivitamin Tab PO 1 tab DAILY IMMANUEL Administration Ondansetron HCl 4 mg 07/05/19 08:32 07/07/19 06:44 Zofran IVP 4 mg Q6H PRN Administration NAUSEA AND VOMITI NG Potassium Chloride 10 meq 07/07/19 09:00 07/07/19 08:39 Klor-Con 10 PO 10 meq DAILY IMMANUEL Administration Prazosin HCl 1 mg 07/06/19 15:00 07/06/19 21:32 Minipress PO 1 mg TID IMMANUEL Administration clonidine [From Catapres] Allergy (Verified 07/05/19 19:19) ALGY-Blister Vitals/I&O/Wt Last Vital Signs Temp 97.6 F 07/07/19 06:27 Pulse 64 07/07/19 09:25 Resp 16 07/07/19 09:25 BP 212/98 07/07/19 09:25 Pulse Ox 97 07/07/19 09:25 07/06/19 07/07/19 07/07/19 22:59 06:59 14:59 Intake Total 369.437 / 852.000 18.366 / 870.366 367.29 / 367.29 Balance 369.437 / 852.000 18.366 / 870.366 367.29 / 367.29 Weight last 48 hrs Weight 65.045 kg Weight 65.062 kg Physical Exam Const: COMMON NORMALS: no apparent distress and oriented x3 GENERAL APPEARANCE: cooperative and comfortable ORIENTATION/CONSCIOUSNESS: Yes awake HENMT: COMMON NORMALS: normocephalic, head/scalp atraumatic, hearing grossly normal bilaterally and moist oral mucous membranes HEAD & SCALP: normocephalic and atraumatic Eye: COMMON NORMALS: PERRL, EOMs intact bilaterally and conjunctivae normal CONJUNCTIVA: Yes conjunctivae normal PUPIL: Yes PERRL Neck/C-Spine: COMMON NORMALS: full ROM GENERAL: Yes normal visual inspection and Yes trachea midline Resp: COMMON NORMALS: normal respiratory effort, no retractions, no use of accessory muscles and clear to auscultation bilaterally EFFORT & INSPECTION: Yes able to speak in complete sentences, Yes symmetric chest movement and No tachypneic AUSCULTATION: clear to auscultation bilaterally Cardio: COMMON NORMALS: regular rate, regular rhythm, S1 normal heart sound, S2 normal heart sound and no murmurs RATE: regular rate RHYTHM: regular rhythm HEART SOUNDS: S1 normal and S2 normal GI: COMMON NORMALS: normal to inspection, nondistended, normoactive bowel sounds, soft to palpation and non-tender PALPATION: Yes soft Extremity: COMMON NORMALS: normal to inspection, full ROM and no clubbing, cyanosis or edema; negative for no pedal edema Neuro: COMMON NORMALS: oriented x3, moves all extremities, no focal motor deficits, no sensory deficits noted and gait normal Psych: COMMON NORMALS: mental status grossly normal, thought process normal, cooperative, affect normal and speech normal SPEECH: Yes normal speech THOUGHT PROCESS: normal thought process Skin: COMMON NORMALS: no rashes or lesions noted, no jaundice, no petechiae and no mottling GENERAL SKIN EXAM: no rashes or lesions noted A&P Assessment and plan (1) Hypertension: -Presented with hypertensive urgency, blood pressure is still inconsistently controlled and patient remains on nitroglycerin drip as well as multiple oral antihypertensives. Wean off nitroglycerin drip as tolerated -Reviewed renal ultrasound with no evidence of stenosis. Patient has a known left renal cyst that seems to be stable on imaging -CT head unremarkable; chest x-ray negative -Continue to monitor blood pressure closely -Review of medical record shows that patient has been admitted previously for hypertensive urgency. Has history of intolerance to multiple medications including amlodipine, hydralazine, clonidine, chlorthalidone -May require cardiology evaluation if continued difficulty with blood pressure control -Most recent echo on record done in 2017 showing ejection fraction of 45%, noted wall motion abnormalities, grade 1 diastolic dysfunction, trace MR -telemetry monitoring -low salt diet -renal function at baseline, lytes wnl Status: Acute Qualifiers: Hypertension type: essential hypertension Qualified Code(s): I10 - Essential (primary) hypertension Code(s): I10 - Essential (primary) hypertension Additional A&P Information Additional A&P Information: -CKD stage 2; baseline Cr 1.2-1.3 -Hypothyroidism -GERD -Multilevel DJD, dextroscoliosis -known L renal mass -CAD s/p stenting; on ASA, Plavix -low salt diet as tolerated -DVT ppx with Lovenox -Dispo: home -Code status: FULL code Attestations Medical Necessity Statement*: Patient will possibly be discharged this afternoon if blood pressure is controlled off nitroglycerin drip. Time Spent in Patient Care: 16 - 35 minutes (>than 50% of time spent in counselling and/or direct pt care on unit) . Coding Level of Care Code Acute Farm Specialist for Inag Fwd Exam Problem Focused Diagnoses Hypertension I10 Hypertension type: essential hypertension
[2019-07-07] MEDS: prazosin 1 mg Capsule PO (10:50)
--- NOTE | 2019-07-07 13:14 | P.DS_ITS ---
Discharge Providers Date of Admission: 07/04/19 17:47 Date of Discharge: 07/07/19 Attending Provider at Admission: Doe Bui MD Attending Provider at Discharge: Jolanta English MD Primary Care Provider: Doe Bui MD Diagnoses at Discharge Discharge Diagnosis (1) Hypertension: Status: Acute Problem details: -Presented with hypertensive urgency, blood pressure now better controlled and she is off NTG drip. She is to continue multiple oral antihypertensives. -Reviewed renal ultrasound with no evidence of stenosis. Patient has a known left renal cyst that seems to be stable on imaging -CT head unremarkable; chest x-ray negative -Continue to monitor blood pressure closely -Review of medical record shows that patient has been admitted previously for hypertensive urgency. Has history of intolerance to multiple medications including amlodipine, hydralazine, clonidine, chlorthalidone -May require cardiology evaluation if continued difficulty with blood pressure control -Most recent echo on record done in 2017 showing ejection fraction of 45%, noted wall motion abnormalities, grade 1 diastolic dysfunction, trace MR -telemetry monitoring -low salt diet -renal function at baseline, lytes wnl Qualifiers: Hypertension type: essential hypertension Qualified Code(s): I10 - Essential (primary) hypertension Reason for Visit Reason for Visit: Reason For Visit: Ramya sent her over for high BP Hospital Course Hospital Course: Patient was admitted to ICU for close monitoring of her blood pressure given hypertensive urgency and need for nitroglycerin drip as well as multiple oral antihypertensives. Unfortunately she has been unable to tolerate several oral antihypertensives including clonidine, amlodipine, hydralazine. We were eventually able to wean her off the nitroglycerin drip and with appropriate titration of her oral antihypertensive medications she has been able to maintain her blood pressure in the 150-160/70-90 range. She is encouraged to continue to monitor her blood pressure at home and keep a log for review with her primary care provider. She will be discharged home today with the medications listed below including the addition of atenolol and prazosin. She is encouraged to seek medical attention immediately should her symptoms return. She is currently hemodynamically stable, asymptomatic, ambulatory, tolerating oral intake without difficulty. She is to follow-up with Dr. Bui next week. Physical Exam Const: COMMON NORMALS: no apparent distress and oriented x3 GENERAL APPEARANCE: cooperative and comfortable ORIENTATION/CONSCIOUSNESS: Yes awake HENMT: COMMON NORMALS: normocephalic, head/scalp atraumatic, hearing grossly normal bilaterally and moist oral mucous membranes HEAD & SCALP: normocephalic and atraumatic Eye: COMMON NORMALS: PERRL, EOMs intact bilaterally and conjunctivae normal CONJUNCTIVA: Yes conjunctivae normal PUPIL: Yes PERRL Neck/C-Spine: COMMON NORMALS: full ROM GENERAL: Yes normal visual inspec tion and Yes trachea midline Resp: COMMON NORMALS: normal respiratory effort, no retractions, no use of accessory muscles and clear to auscultation bilaterally EFFORT & INSPECTION: Yes able to speak in complete sentences, Yes symmetric chest movement and No tachypneic AUSCULTATION: clear to auscultation bilaterally Cardio: COMMON NORMALS: regular rate, regular rhythm, S1 normal heart sound, S2 normal heart sound and no murmurs RATE: regular rate RHYTHM: regular rhythm HEART SOUNDS: S1 normal and S2 normal GI: COMMON NORMALS: normal to inspection, nondistended, normoactive bowel sounds, soft to palpation and non-tender PALPATION: Yes soft Extremity: COMMON NORMALS: normal to inspection, full ROM and no clubbing, cyanosis or edema; negative for no pedal edema Neuro: COMMON NORMALS: oriented x3, moves all extremities, no focal motor deficits, no sensory deficits noted and gait normal Psych: COMMON NORMALS: mental status grossly normal, thought process normal, cooperative, affect normal and speech normal SPEECH: Yes normal speech THOUGHT PROCESS: normal thought process Skin: COMMON NORMALS: no rashes or lesions noted, no jaundice, no petechiae and no mottling GENERAL SKIN EXAM: no rashes or lesions noted Discharge Data Data Completed and Pending: Completed Studies During Hospitalization Category Date Time Status CT abdomen pelvis w con* [id number] Rout ine Cat Scan 07/06/19 08:[address] head wo con* [id number] Routine Cat Scan 07/04/19 20:15 Completed XR chest 1V dale ble [id number] Urgent Exams 07/04/19 13:05 Completed CV renal doppler [id number] Routine Ultrasound 07/05/19 20:15 Completed Pending at discharge Category Date Time Status Troponin(5th) 6 h our Routine Lab 07/04/19 19:17 Received Urine Culture Rou mathew Lab 07/05/19 22:55 Received Labs from last 24 hours 07/07/19 07/07/19 03:26 03:26 WBC 5.5 RBC 3.51 L Hgb 11.0 L Hct 35.1 L MCV 100.0 H MCH 31.3 MCHC 31.3 RDW 13.1 Plt Count 203 MPV 11.6 H Neut % (Auto) 54.0 Lymph % (Auto) 28.2 [place] % (Auto) 11.9 Eos % (Auto) 4.8 Baso % (Auto) 0.9 Neut # (Auto) 3.0 Lymph # (Auto) 1.5 [place] # (Auto) 0.7 Eos # (Auto) 0.3 Baso # (Auto) 0.1 Nucleated RBC % (a uto) 0 Nucleated RBCs # 0.0 Sodium 134 L Potassium 4.8 Chloride 100 Carbon Dioxide 23 Anion Gap 15.8 BUN 22 Creatinine 1.1 H Glucose 96 Calcium 9.4 Total Bilirubin 0.4 AST 17 ALT 8 Alkaline Phosphata se 91 Total Protein 6.7 Albumin 3.7 Globulin 3.0 Vitals: Last Vital Signs Temp 97.6 F 07/07/19 06:27 Pulse 64 07/07/19 12:00 Resp 14 07/07/19 12:00 BP 158/84 07/07/19 12:00 Pulse Ox 95 07/07/19 12:00 Discharge Plan Discharge Patient Disposition: Home, Self-Care Condition: Stable Prescriptions: New prazosin 1 mg Capsule 1 mg PO TID 30 Days Qty: 90 RF: 0 atenolol 50 mg Tablet 25 mg PO DAILY 30 Days Qty: 30 RF: 0 Continued Plavix 75 mg Tablet 75 mg PO DAILY RF: 0 levothyroxine 75 mcg Tablet 75 mcg PO DAILY RF: 0 isosorbide mononitrate 60 mg Tablet Extended Release 24 Hr 60 mg PO DAILY RF: 0 estradiol 1 mg Tablet 1 mg PO DAILY RF: 0 torsemide 5 mg Tablet 5 mg PO DAILY RF: 0 [place] 7.5-325 mg Tablet 1 tab PO QID PRN (Reason: Pain) RF: 0 telmisartan 80 mg Tablet 80 mg PO DAILY RF: 0 felodipine 10 mg Tablet Extended Release 24 Hr 10 mg PO DAILY RF: 0 potassium chloride 20 mEq Tablet Extended Release 20 meq PO DAILY RF: 0 multivitamin Tablet 1 tab PO DAILY RF: 0 aspirin 325 mg Tablet 325 mg PO DAILY RF: 0 krill oil 500 mg Capsule 1,000 mg PO DAILY RF: 0 Discontinued clonidine HCl 0.1 mg Tablet 0.1 mg PO TID RF: 0 Discharge Orders: Discharge Order (Routine); Ordered 07/07/19 Ordered By: Jolanta English Referrals: Doe Bui MD [Primary Care Provider] - 1-3 days (Follow up on BP) Discharge Diet: Low Salt Discharge Activity: Resume usual activity Activity Restrictions/Additional Instructions: Please continue to monitor BP at home and keep a log for review with Dr. Bui Please seek medical attention immediately if symptoms return Discharge Attestations Time Spent in Discharge Care*: greater than 30 min Specific Discharge Activities: Specific discharge activities: educating patient and evaluating patient/reviewing data Quality Metrics Clinical Quality Measures During this hospital stay, did patient experience: None Coding Level of Care Code Acute Consumer Marketing Specialist for Lawrence Fwd Diagnoses Hypertension I10 Hypertension type: essential hypertension
== END 2019-07-07 14:42 | disposition home or self-care (01) | DRG 305 ==
LOC: ER 13:32 → ICU 18:35
PROVIDERS: Admitting Provider Family Medicine; Emergency Provider Family Medicine; Family Provider Family Medicine; PCP Family Medicine; Visit Provider Family Medicine
DX: I16.0 Hypertensive urgency (principal); I10 Essential (primary) hypertension; I25.10 Atherosclerotic heart disease of native coronary artery without angina pectoris; Z95.5 Presence of coronary angioplasty implant and graft; K21.9 Gastro-esophageal reflux disease without esophagitis; E03.9 Hypothyroidism, unspecified; G89.29 Other chronic pain; M54.5 Low back pain; N28.89 Other specified disorders of kidney and ureter; I25.2 Old myocardial infarction
CPT/HCPCS: 36415; 70450; 71045; 74177; 80053; 81003; 83735; 84100; 84484; 85025; 86141; 87086; 93005; 93975; 96372; 96375; 99281; J1650; J2405; Q9967

== ENCOUNTER → 2020-03-04 10:59 | Outpatient (BNVA) | payer MEDICARE, OTHER, SELFPAY | PROVIDERS: Family Provider Family Medicine; PCP Family Medicine; Referring Provider Dermatology; Visit Provider Dermatology | DX: L82.1 Other seborrheic keratosis (principal); D69.2 Other nonthrombocytopenic purpura; D23.9 Other benign neoplasm of skin, unspecified | CPT/HCPCS: 99203 ==

== ENCOUNTER → 2020-10-07 10:35 | Outpatient (BNVA) | payer MEDICARE, OTHER, SELFPAY | PROVIDERS: Family Provider Family Medicine; PCP Family Medicine; Referring Provider Family Medicine; Visit Provider Orthopaedic Surgery | DX: M54.5 Low back pain (principal) | CPT/HCPCS: 72110 ==

== ENCOUNTER 2020-10-17 09:16 | Outpatient (CLI) | payer MEDICARE, OTHER, SELFPAY ==
--- NOTE | 2020-10-17 09:30 | MR_ITS ---
WS: [id number] MRI LUMBAR SPINE NONCONTRAST TECHNIQUE: Sagittal T1, T2 and STIR imaging. Axial T1 and T2 imaging. CLINICAL INFORMATION: M54.5 - Low back pain COMPARISON: CT 2 ,018 and MRI 10,015 FINDINGS: Lumbar scoliosis convex right. No acute compression fractures. No high-grade central canal stenosis. L1-L2: Mild disc bulging and osteophytic ridging. Spinal canal and foramen are patent. Mild facet art hropathy. L2-L3: Slight retrolisthesis. Disc desiccation with disc osteophytic ridging. Mild left and no signif icant right foraminal narrowing. Mild facet arthropathy. Spinal canal is patent. L3-L4: Disc osteophyte complex with endplate ridging and disc desiccation. Mild to moderate central c anal stenosis. Slight impingement subarticular recess bilaterally. Mild left and no significant right foraminal narrowing. Moderate facet arthropathy. L4-L5: Right eccentric disc osteophyte complex impinges the traversing right L5 nerve root. Moderate to severe right foraminal narrowing. Left foramen is patent. Moderate facet arthropathy with ligament um flavum hypertrophy. L5-S1: Disc osteophyte complex with endplate ridging. Impingement on the right subarticular recess. M oderate right and mild left foraminal narrowing. Spinal canal is patent. Visualized pelvic bony structures: Normal. Paravertebral soft tissues: Normal. MR/MR lumbar spine wo con* [id number] IMPRESSION: 1. Advanced lumbar scoliosis convex right. No acute compression fractures. 2. Moderate central canal stenosis L3-4 and L4-5 due to disc osteophyte comple xes. Impingement on the right subarticular recess L4-5 and traversing right L5 nerve root. 3. Moderate to severe right L4-5 foraminal narrowing. 4. Right subarticular protrusion L5-S1 impinges the traversing right S1 nerve root. 5. Moderate to advanced facet arthropathy lower lumbar spine. 6. Mild left L2-3 and L3-4 foraminal narrowing. 7. Moderate right L5-S1 foraminal narrowing.
== END 2020-10-17 09:17 | disposition home or self-care (01) ==
LOC: RADSHAW 09:20
PROVIDERS: Family Provider Family Medicine; PCP Family Medicine; Visit Provider Orthopaedic Surgery
DX: M47.816 Spondylosis without myelopathy or radiculopathy, lumbar region (principal); M51.26 Other intervertebral disc displacement, lumbar region; M48.061 Spinal stenosis, lumbar region without neurogenic claudication; M25.78 Osteophyte, vertebrae
CPT/HCPCS: 72148

== ENCOUNTER 2020-11-22 20:17 | Emergency (ER) | payer MEDICARE, OTHER, SELFPAY ==
[2020-11-22] VITALS (7 sets, daily range): BP systolic 150–204; BP diastolic 55–71; PULSE 47–57; RESP 16–22; TEMP 36.1–36.6; O2SAT 96–97; BMI 26.0
--- NOTE | 2020-11-22 20:47 | ECG_ITS ---
[facility] Test Date: 2020-11-22 Pat Name: Kati Chris Department: Room: Gender: Female Social Service Technician: : 1940 Requested By: Missael Azar Order Number: [id number] Betty MD: Edson Ahumada M.D. Measurements Intervals Belk Rate: 54 P: 48 IA: 176 QRS: -50 QRSD: 170 T: 68 QT: 504 QTc: 480 Interpretive Statements SINUS BRADYCARDIA LEFT AXIS DEVIATION [QRS AXIS < -30] LEFT BUNDLE BRANCH BLOCK [120+ ms QRS DURATION, 80+ ms Q/S IN V1/V2, 85+ ms R IN I/aVL/V5/V6] Compared to ECG 07/05/2019 10:49:23 No significant changes Electronically Signed On 11-23-2020 16:01:49 CDT by Edson Ahumada M.D. [id number] f
--- NOTE | 2020-11-22 20:47 | XRR_ITS ---
PROCEDURE INFORMATION: Exam: XR Chest Exam date and time: 11/22/2020 8:49 PM Age: 80 years old Clinical indication: Dyspnea; Additional info: SOB TECHNIQUE: Imaging protocol: XR of the chest. Views: 1 view. Total images: 1 COMPARISON: CR XR chest 1V portable [id number] 07/04/2019 1:47 PM FINDINGS: Lungs: No visible active interstitial or alveolar airspace disease. Pleural spaces: Unremarkable. No pleural effusion. No pneumothorax. Heart/Mediastinum: Cardiac structures and configuration with arteriosclerosis. Tortuous thoracic aorta which can be seen in hypertensive cardiovascular disease. Bones/joints: Scoliosis. XR/XR chest 1V portable [id number] IMPRESSION: Nonacute.
[2020-11-22 21:13] LABS: Basophils # 0.1 10^3/uL (0.0-0.1); Basophils % 1.3 %; Eosinophils # 0.3 10^3/uL (0.0-0.8); Eosinophils % 4.5 %; Hemoglobin 11.4 g/dL (11.5-15.3); Lymphocytes # 1.5 10^3/uL (0.8-4.8); Lymphocytes % 25.2 %; Mean Corpuscular HGB Conc 31.7 g/dL (30.0-36.0); Mean Corpuscular Hemoglobin 32.8 pg (28.0-34.0); Mean Corpuscular Volume 103.4 fL (81-99); Mean Platelet Volume 10.8 fL (7.4-10.4); Monocytes # 0.6 10^3/uL (0.2-0.9); Monocytes % 10.4 %; Neutrophils # 3.51 10^3/uL (1.8-7.7); Neutrophils % 58.3 %; Nucleated Red Blood Cells % 0 %; Platelet Count 226 10^3/cmm (130-400); Red Blood Count 3.48 10^6/uL (4.1-5.3); Red Cell Distribution Width 12.6 % (12.1-15.1)
[2020-11-22 21:18] LABS: Add Urine Microscopic? NO; Charge for UA Resulting for Rev
[2020-11-22 21:22] LABS: Bilirubin Urine Neg (Negative); Blood Urine Neg (Negative); Glucose Urine UA Norm (Normal); Ketones Urine Negative (Negative); Leukocyte Esterase Urine Negative (Negative); Nitrate Urine Negative (Negative); Protein Urine Neg (Negative); Urine Appearance Clear (CLEAR); Urine Color Yellow (Yellow); Urobilinogen Urine Norm (Negative); pH Urine 5 (5-7)
[2020-11-22] MEDS: hyDRALAzine 20 mg/mL INJ 1 mL 10 MG IVP (21:29)
--- NOTE | 2020-11-22 21:34 | W.ED.SOB ---
HPI - SOB/Dyspnea General: Chief Complaint: Shortness of Breath/Dyspnea Stated Complaint: High Blood Pressure/SOB Time Seen by Provider: 11/22/20 20:32 History of Present Illness: HPI Narrative: 80-year-old female with a history of hypertension. She states that her physicians have made changes to her blood pressure medication recently, including cutting her carvedilol because of low heart rates, and increasing her other medication. She has had trouble controlling her blood pressure for quite some time. She noticed tonight that her blood pressure was high, taking it in a routine manner in the evening. She took her nightly medicine. At some point later, the patient became acutely short of breath she states that she was so short of breath that her noticed her shaking. She had not done this before, so they decided to come to the emergency room. She denies any chest discomfort with the shortness of breath. She also denies cough, fever, increased swelling. She states her symptoms have basically resolved now, and she is just tired . She does note decreased exercise tolerance of late, saying she just has been weak . MD elicited complaint: shortness of breath Pertinent past history: other Onset (ago): hour(s) Context: other Timing: constant and now resolved Severity: severe Exacerbating factors: exertion Relieving factors: nothing Known history of: congestive heart failure and other Associated symptoms: Deny abdominal pain, chest pain, dizziness, fever(s), nausea, palpitations or vomiting Review of Systems Const: Denies: fever(s) or chills Eyes: Denies: change in vision ENMT: Denies: odynophagia or sinus pain Card: Denies: chest pain, palpitations or irregular heart rhythm Resp: Reports: dyspnea; Denies: productive cough, non-productive cough or wheezing GI: Denies: abdominal pain, nausea or vomiting : Denies: dysuria or hematuria Musc: Reports: back pain; Denies: neck pain Skin/Breast: Denies: rash or erythema Neuro: Denies: headache(s), dizziness or vertigo Psych: Denies: anxiety PFSH ED PFSH: Medical History (Updated 11/23/20 @ 00:00 by Missael Hughes DO) Chronic low back pain Coronary artery disease GERD (gastroesophageal reflux disease) History of chronic hypertension History of gallstones History of hypothyroidism History of [place] (myocardial infarction) History of pneumonia Surgical History (Updated 11/18/20 @ 14:20 by LISA Masterson) History of heart artery stent History of tubal ligation S/P hysterectomy Family History Other CAD (coronary artery disease) Hypertension Social History Smoking and tobacco status: never smoked Household members: spouse Marital status: Current occupational status: retired Physical Exam Const: GENERAL APPEARANCE: well developed ORIENTATION/CONSCIOUSNESS: Yes oriented to person, Yes oriented to place and Yes oriented to time HENMT: COMMON NORMALS: normocephalic, external ears normal and Normal external nose present HEAD & SCALP: normocephalic FACE & SINUS: normal facial exam NOSE: Normal external nose present and No nasal discharge present EXTERNAL EAR: Yes external ears normal Eye: COMMON NORMALS: Equal, round and reactive pupils present, EOMs intact bilaterally and conjunctivae normal EYELID: eyelids normal CONJUNCTIVA: Yes conjunctivae normal PUPIL: Yes Equal, round and reactive pupils present Neck/C-Spine: GENERAL: No tracheal deviation Chest: COMMONS NORMALS: normal inspection of the chest CHEST: No tenderness Resp: COMMON NORMALS: clear to auscultation bilaterally EFFORT & INSPECTION: No tachypneic, No respiratory distress, No retractions, No uses accessory muscles and No tracheal deviation AUSCULTATION: clear to auscultation bilaterally, no rhonchi, no wheezes and lung sounds not diminished Cardio: COMMON NORMALS: regular rate and regular rhythm RATE: regular rate RHYTHM: regular rhythm HEART SOUNDS: no murmurs PERIPHERAL PULSES: radial pulses present GI: INSPECTION: No abdominal distension AUSCULTATION: No Hyperactive bowel sounds present and No Hypoactive bowel sounds present PALPATION: No Guarding due to palpation present (GI) and No Rigid due to palpation Neuro: SENSORIUM/ORIENTATION: Yes oriented to person, Yes oriented to place and Yes oriented to time Psych: COMMON NORMALS: mental status grossly normal Skin: COMMON NORMALS: no rashes or lesions noted GENERAL SKIN EXAM: no rashes or lesions noted Course Consultations: Consultation #1: izzy Time: 23:35 Vital Signs: Vital signs: Vital Signs Temperature 97.9 F 11/22/20 20:41 Pulse Rate 55 L 11/22/20 23:54 Respiratory Rate 22 H 11/22/20 23:54 Blood Pressure 151/55 11/22/20 23:54 Pulse Oximetry 96 11/22/20 23:54 MDM - SOB/Dyspnea MDM Narrative: Medical decision making narrative: 80-year-old female with a history of a brief episode of shortness of breath at home. She denied any chest discomfort, dizziness, presyncope. Her symptoms are resolved on arrival her EKG showed a sinus rhythm/bradycardia with left axis deviation and left bundle branch block that is chronic. She has a biphasic T wave, that is chronic as well. Her ventricular rate was 45-55. White blood cell count is 6. Hemoglobin 11.4. Labs are significant for a potassium of 6.3, and creatinine of 1.7. Her baseline appears to be 1.3-1.4. She has not had a potassium level of 6.3 prior. On further questioning, she started spironolactone a little over a week ago, has continued her potassium supplementation, and has not taken her torsemide due to increased urination associated with the spironolactone. Discussed observation admission with the hospitalist due to episode of shortness of breath, combined with potassium significantly high discussed observation with the patient he was adamant that she would really like to go home. Because her because of hyperkalemia is known at this point, I am a bit more comfortable with this, although the patient was instructed that we usually do not let patients go home with a potassium of 6.3. She will stop her potassium supplementation now that she is on spironolactone. She will continue to take her blood pressures twice daily, and increase her clonidine to 0.1 mg 3 times daily if needed if her blood pressure continues to be high, and she will get a BMP on Tuesday. Tuesday is , and the lab is therefore closed. She is given a dose of Kayexalate here Lab Data: Labs: Lab Results 11/22/20 11/22/20 11/22/20 Range/Units 21:08 21:08 21:08 WBC 6.0 (4.0-10.0) 10^3/ uL RBC 3.48 L (4.1-5.3) 10^6/u L Hgb 11.4 L (11.5-15.3) g/dL Hct 36.0 L (37.0-47.0) % MCV 103.4 H (81-99) fL MCH 32.8 (28.0-34.0) pg MCHC 31.7 (30.0-36.0) g/dL RDW 12.6 (12.1-15.1) % Plt Count 226 (130-400) 10^3/c mm MPV 10.8 H (7.4-10.4) fL Neut % (Auto) 58.3 % Lymph % (Auto) 25.2 % Campbell % (Auto) 10.4 % Eos % (Auto) 4.5 % Baso % (Auto) 1.3 % Neut # (Auto) 3.51 (1.8-7.7) 10^3/u L Lymph # (Auto) 1.5 (0.8-4.8) 10^3/u L Campbell # (Auto) 0.6 (0.2-0.9) 10^3/u L Eos # (Auto) 0.3 (0.0-0.8) 10^3/u L Baso # (Auto) 0.1 (0.0-0.1) 10^3/u L Nucleated RBC % (a uto) 0 % Nucleated RBCs # 0.0 /100WBC Sodium 131 L (136-145) mmol/L Potassium 6.3 H (3.5-5.1) mmol/L Chloride 100 (98-107) mmol/L Carbon Dioxide 20 L (22-29) mmol/L Anion Gap 17.3 (5-19) BUN 31 H (8-23) mg/dL Creatinine 1.7 H (0.5-0.9) mg/dL GFR Calculation Not Reportable Glucose 110 (65-115) mg/dL Calculated Osmolal ity 279 L (285-295) mOsm/k g Lactate (0.5-2.2) mmol/L Calcium 8.5 (8.5-10.5) mg/dL Total Bilirubin 0.3 (0.15-1.2) mg/dL AST 13 (0-32) U/L ALT 6 (0-33) U/L Alkaline Phosphata se 78 (35-105) IU/L Troponin T Baselin e 29 H (0-10) ng/L Troponin T 120 Min [place] (0-10) ng/L Delta Troponin T (0-10) ABS# NT-Pro-B Natriuret Pep 3431 H (0-450) pg/mL Total Protein 7.0 (6.6-8.7) g/dL Albumin 4.0 (3.5-5.2) g/dL Globulin 3.0 (1.3-4.6) g/dL Urine Color (Yellow) Urine Appearance (CLEAR) Urine pH (5-7) Ur Specific Gravit y (1.005-1.030) Urine Protein (Negative) Urine Glucose (UA) (Normal) Urine Ketones (Negative) Urine Blood (Negative) Urine Nitrate (Negative) Urine Bilirubin (Negative) Urine Urobilinogen (Negative) mg/dL Ur Leukocyte Marianela ase (Negative) 11/22/20 11/22/20 11/22/20 Range/Units 21:13 21:31 23:23 WBC (4.0-10.0) 10^3/ uL RBC (4.1-5.3) 10^6/u L Hgb (11.5-15.3) g/dL Hct (37.0-47.0) % MCV (81-99) fL MCH (28.0-34.0) pg MCHC (30.0-36.0) g/dL RDW (12.1-15.1) % Plt Count (130-400) 10^3/c mm MPV (7.4-10.4) fL Neut % (Auto) % Lymph % (Auto) % Campbell % (Auto) % Eos % (Auto) % Baso % (Auto) % Neut # (Auto) (1.8-7.7) 10^3/u L Lymph # (Auto) (0.8-4.8) 10^3/u L Campbell # (Auto) (0.2-0.9) 10^3/u L Eos # (Auto) (0.0-0.8) 10^3/u L Baso # (Auto) (0.0-0.1) 10^3/u L Nucleated RBC % (a uto) % Nucleated RBCs # /100WBC Sodium (136-145) mmol/L Potassium (3.5-5.1) mmol/L Chloride (98-107) mmol/L Carbon Dioxide (22-29) mmol/L Anion Gap (5-19) BUN (8-23) mg/dL Creatinine (0.5-0.9) mg/dL GFR Calculation Glucose (65-115) mg/dL Calculated Osmolal ity (285-295) mOsm/k g Lactate 0.8 (0.5-2.2) mmol/L Calcium (8.5-10.5) mg/dL Total Bilirubin (0.15-1.2) mg/dL AST (0-32) U/L ALT (0-33) U/L Alkaline Phosphata se (35-105) IU/L Troponin T Baselin e (0-10) ng/L Troponin T 120 Min [place] 33.06 H (0-10) ng/L Delta Troponin T 4.06 (0-10) ABS# NT-Pro-B Natriuret Pep (0-450) pg/mL Total Protein (6.6-8.7) g/dL Albumin (3.5-5.2) g/dL Globulin (1.3-4.6) g/dL Urine Color Yellow (Yellow) Urine Appearance Clear (CLEAR) Urine pH 5 (5-7) Ur Specific Gravit y 1.010 (1.005-1.030) Urine Protein Neg (Negative) Urine Glucose (UA) Norm (Normal) Urine Ketones Negative (Negative) Urine Blood Neg (Negative) Urine Nitrate Negative (Negative) Urine Bilirubin Neg (Negative) Urine Urobilinogen Norm (Negative) mg/dL Ur Leukocyte Marianeal ase Negative (Negative) Discharge Plan Discharge Patient Disposition: Home Clinical Impression: Acute hyperkalemia Hypertension Qualifiers: Hypertension type: essential hypertension Qualified Code(s): I10 - Essential (primary) hypertension Condition: Stable Prescriptions: Discontinued potassium chloride 20 mEq Tablet Extended Release 20 meq PO DAILY RF: 0 No Action magnesium 250 mg tablet 250 mg PO DAILY RF: 0 cholecalciferol (vitamin D3) 1,250 mcg (50,000 unit) capsule PO RF: 0 clonidine HCl 0.1 mg tablet 0.1 mg PO BID Qty: 60 RF: 6 spironolactone [Aldactone] 25 mg tablet 12.5 mg PO DAILY Qty: 45 RF: 3 carvedilol 3.125 mg tablet 3.125 mg PO BID Qty: 60 RF: 6 valsartan 160 mg tablet 160 mg PO BID Qty: 60 RF: 3 levothyroxine 75 mcg Tablet 75 mcg PO DAILY RF: 0 isosorbide mononitrate 60 mg Tablet Extended Release 24 Hr 60 mg PO DAILY RF: 0 [place] 7.5-325 mg Tablet 1 tab PO QID PRN (Reason: Pain) RF: 0 felodipine 10 mg Tablet Extended Release 24 Hr 10 mg PO DAILY RF: 0 aspirin 325 mg Tablet 325 mg PO DAILY RF: 0 krill oil 500 mg capsule 1,000 mg PO DAILY PRNRF: 0 multivitamin Tablet 1 tab PO DAILY PRNRF: 0 torsemide 5 mg tablet 5 mg PO DAILY RF: 0 Discharge Orders: Discharge ED (Routine); Ordered 11/22/20 Ordered By: Missael Hughes Referrals: Doe Bui MD [Primary Care Provider] - Discharge Diet: Usual diet Discharge Activity: Increase activity as tolerated Patient Instructions: Hyperkalemia (ED), Hypertension (ED) Activity Restrictions/Additional Instructions: Stop your potassium supplementation. Continue to check your blood pressure twice daily. If it remains significantly high, you can increase your clonidine to 3 times daily instead of 2 times daily. Return immediately to the emergency room for any shortness of breath, dizziness, increasing weakness, chest discomfort, or any other concerning symptoms. Get your potassium rechecked on tuesday as instructed. Coding Level of Care Code ED Drill Press Set Up Operator Radial for Lawrence Fwsumaya Exam Comprehensive
[2020-11-22 21:35] LABS: Troponin(5th) Baseline 29 ng/L (0-10)
[2020-11-22 21:44] LABS: Alanine Aminotransferase 6 U/L (0-33); Alkaline Phosphatase 78 IU/L (35-105); Anion Gap 17.3 (5-19); Aspartate Amino Transferase 13 U/L (0-32); Blood Urea Nitrogen 31 mg/dL (8-23); Calcium 8.5 mg/dL (8.5-10.5); Carbon Dioxide 20 mmol/L (22-29); Chloride 100 mmol/L (98-107); Glucose 110 mg/dL (65-115); NT Pro B Type Natriuretic Pept 3431 pg/mL (0-450); Osmolality Calculated 279 mOsm/kg (285-295); Potassium 6.3 mmol/L (3.5-5.1); Sodium 131 mmol/L (136-145); Total Bilirubin 0.3 mg/dL (0.15-1.2)
--- NOTE | 2020-11-22 22:47 | ECG_ITS ---
[facility] Test Date: 2020-11-22 Pat Name: Kati Chris Department: Room: Gender: Female Envelope Adjuster: : 1940 Requested By: Missael Azar Order Number: [id number] Betty MD: Edson Ahumada M.D. Measurements Intervals [place] Rate: 47 P: 53 [place]: 186 QRS: -54 QRSD: 159 T: 62 QT: 531 QTc: 474 Interpretive Statements SINUS BRADYCARDIA LEFT AXIS DEVIATION [QRS AXIS < -30] LEFT BUNDLE BRANCH BLOCK [120+ ms QRS DURATION, 80+ ms Q/S IN V1/V2, 85+ ms R IN I/aVL/V5/V6] Compared to ECG 11/22/2020 20:36:58 No significant changes Electronically Signed On 11-23-2020 16:06:08 CDT by Edson Ahumada M.D. [id number]
[2020-11-22 23:01] LABS: Lactate (Lactic Acid level) 0.8 mmol/L (0.5-2.2)
[2020-11-22] MEDS: morphine 4 mg/mL SDV 1 mL 2 MG IVP (23:28)
[2020-11-22] MEDS: ondansetron 2 mg/ML SDV 2 mL 4 MG IVP (23:29)
[2020-11-22 23:49] LABS: Troponin 5 2HR 33.06 ng/L (0-10); Troponin 5 2HR Delta 4.06 ABS# (0-10)
[2020-11-22] MEDS: sodium polystyrene sulfonate 15 gm/60 mL Btl PO (23:52)
== END 2020-11-23 00:22 | disposition home or self-care (01) ==
PROVIDERS: Emergency Provider Emergency Medicine; PCP Family Medicine
DX: E87.5 Hyperkalemia (principal); I10 Essential (primary) hypertension; Z79.82 Long term (current) use of aspirin; I25.10 Atherosclerotic heart disease of native coronary artery without angina pectoris; I25.2 Old myocardial infarction
CPT/HCPCS: 71045; 80053; 81003; 83605; 83880; 84484; 85025; 93005; 96374; 96375; 99284; J0360; J2270; J2405

== ENCOUNTER → 2020-11-26 12:26 | Outpatient (BNVA) | payer MEDICARE, OTHER, SELFPAY | PROVIDERS: PCP Family Medicine; Visit Provider Orthopaedic Surgery | DX: Z01.818 Encounter for other preprocedural examination (principal); Z20.822 Contact with and (suspected) exposure to COVID-19 | CPT/HCPCS: 87635 ==

== ENCOUNTER 2020-12-01 08:20 | Day surgery (SDC) | payer MEDICARE, OTHER, SELFPAY ==
[2020-11-27 11:59] VITALS: BMI 26.0
--- NOTE | 2020-11-27 13:20 | ANES.PREANE2 ---
Pre-Anesthetic Assessment Pre-Anesthetic Assessment: Height/Weight: Height 1.55 m Weight 62.596 kg Preop Diagnosis: lumbar stenosis Proposed Procedure: Operation Date: 12/01/20 13:35 Proposed Procedures p Lumbar Spine Decompression 33225 L4/5 [place] M48.062(Right) - Clay Lam DO Was Beta Gino taken within 24 hours: Yes Was Clonidine taken within 24 hours: N/A Social: Social History: No alcohol and No tobacco Exam: Pre-Anes Outpt Exam: alert, oriented x 3 and clear to auscultation bilaterally Additional Exam Findings (including area of procedure): Sinus Anibal Airway: Submandibular: WNL Cervical ROM: WNL MP: 2 Dentition: Chipped Additional comments: Missing some teeth CV/HEM: CV/HEM: CAD and HTN (Poorly controlled) Comments: hyperkalemia Musc/skel: Musc/skel: Lower Back Pain Comments: tremor Anesthetic Plan: ASA status: 3 Anesthesia: General Risk of > 500 ml blood loss (7ml/kg in children): No PFSH Anesthesia PFSH: Medical History (Updated 11/23/20 @ 00:00 by Missael Hughes DO) Chronic low back pain Coronary artery disease GERD (gastroesophageal reflux disease) History of chronic hypertension History of gallstones History of hypothyroidism History of [place] (myocardial infarction) History of pneumonia Surgical History (Updated 11/18/20 @ 14:20 by LISA Masterson) History of heart artery stent History of tubal ligation S/P hysterectomy Family History Other CAD (coronary artery disease) Hypertension Social History Smoking and tobacco status: never smoked Household members: spouse Marital status: Current occupational status: retired Data Anesthesia Cardiac Studies: No Data to Display
[2020-12-01] VITALS (10 sets, daily range): BP systolic 163–213; BP diastolic 82–114; PULSE 57–91; RESP 15–22; TEMP 36.2–37; O2SAT 96–100
--- NOTE | 2020-12-01 | XR_ITS ---
WS: [id number] C-ARM RADIOGRAPHS LUMBAR SPINE; 2 IMAGES HISTORY: c arm pics COMPARISON: None available. Intraoperative imaging during intraoperative fusion. XR/XR lumbar spine 2-3V* 98041 IMPRESSION: Intraoperative imaging during spine fusion.
--- NOTE | 2020-12-01 | SCC_ITS ---
Procedure Done: Right L4/5 laminectomy with partial facetectomy 15.4 seconds of fluoroscopic guidance, for a cumulative dose of 3.36 mGy, was provided to Dr. Lam by the radiology department. C-arm images of the were saved for the patient's permanent record. [facility]
--- NOTE | 2020-12-01 08:44 | PM.HP ---
Providers/Chief Complaint Primary Care Provider: Doe Bui MD Chief Complaint: lumbar decompression History of Present Illness Kati Chris is a 80 year old female Onset: 6-7 years ago Duration: years Characteristics: aching, white hot pain Severity: 5/10 Location: lower back Radiating symptoms: low back to right hip and thigh, numbness to thigh Aggravating factors: any movement Alleviating factors: none Neuro deficits: denies incontinence of bowel/bladder, saddle anesthesia. Prior tx: two radio frequency and three epidural, physical therapy with minimal relief Review of Systems Narrative: General: Reports: 10 or more systems reviewed and unremarkable except as noted in History and below Const: Denies: fever(s) or chills Eyes: Denies: change in vision ENMT: Denies: throat pain Card: Denies: chest pain or dyspnea on exertion Resp: Denies: dyspnea, productive cough or wheezing GI: Denies: abdominal pain, nausea or vomiting Musc: Reports: limited range of motion Skin/Breast: Denies: changes in skin color or dry skin Neuro: Reports: numbness in extremities and weakness in extremities Psych: Denies: anxiety Miller/Lymph: Denies: easy bruising or easy bleeding Medications/Allergies Home Medications Medication Instructions Recorded Confirmed Last Taken Type aspirin 325 mg PO DAILY 07/04/19 12/01/20 11/30/20 History felodipine 10 mg PO DAILY 07/04/19 11/27/20 07/03/19 History hydrocodone-acetaminophen [[place]] 1 tab PO QID PRN 07/04/19 11/27/20 07/04/19 History isosorbide mononitrate 60 mg PO DAILY 07/04/19 12/01/20 12/01/20 History krill oil 500 mg capsule 1,000 mg PO DAILY PRN 08/26/20 12/01/20 11/30/20 History valsartan 160 mg tablet 160 mg PO BID #60 tab 10/24/20 12/01/20 11/30/20 Rx carvedilol 3.125 mg tablet 3.125 mg PO BID #60 tab 11/04/20 12/01/20 12/01/20 Rx clonidine HCl 0.1 mg tablet 0.1 mg PO BID #60 tab 11/04/20 12/01/20 12/01/20 06:00 Rx multivitamin 1 tab PO DAILY 11/04/20 12/01/20 11/30/20 History spironolactone 25 mg tablet 12.5 mg PO DAILY #45 tab 11/04/20 12/01/20 12/01/20 Rx torsemide 5 mg tablet 5 mg PO DAILY tab 11/04/20 12/01/20 12/01/20 History cholecalciferol (vitamin D3) 1,250 1,250 mcg PO DAILY 11/18/20 11/27/20 Unknown History mcg (50,000 unit) capsule magnesium 250 mg tablet 250 mg PO DAILY 11/18/20 12/01/20 11/30/20 History Allergies Allergy/AdvReac Type Severity Reaction Status Date / Time prazosin Allergy Severe ALGY-Difficulty Verified 11/18/20 13:42 Breathing hydralazine Allergy Unknown Verified 11/27/20 11:54 PFSH Acute PFSH: Medical History (Updated 12/01/20 @ 00:01 by ) Chronic low back pain Coronary artery disease GERD (gastroesophageal reflux disease) History of chronic hypertension History of gallstones History of hypothyroidism History of [place] (myocardial infarction) History of pneumonia Surgical History (Updated 11/18/20 @ 14:20 by LISA Masterson) History of heart artery stent History of tubal ligation S/P hysterectomy Family History Other CAD (coronary artery disease) Hypertension Social History Smoking and tobacco status: never smoked Household members: spouse Marital status: Current occupational status: retired Vitals/I&O/Wt Last Vital Signs Temp 97.1 F L 12/01/20 08:35 Pulse 63 12/01/20 08:35 Resp 18 12/01/20 08:35 BP 197/89 12/01/20 08:35 Pulse Ox 97 12/01/20 08:35 Physical Exam Narrative: EXAM NARRATIVE: CONSTITUTIONAL: The patient is a normal appearing [] in no apparent distress. GENERAL: Patient in no acute distress. CARDIAC: Regular rate and rhythm. CHEST: Normal inspiratory effort, normal respiratory rate. ABDOMEN: Soft and nontender. SKIN: Clear, warm and intact. NEURO?PSYCH: The patient is alert and oriented to person, place and time. Sensorv /SILT Motor StrengthShoulder abduction C5 5/5Wrist extension C6 5/5Elbow extension C7 5/5Hand Car Shakeout Operator C8 5/5Finger abduction T15/5 Radial/ Ulnar/ Median n intact LowerSensory (SILT)Motor StrengthHin flexion L2/3Ant/inner thigh 5/5Hip adduction L2/3 5/5Knee extension L4 Lat thigh, 5/5Toe dorsiflexion L5 5/5Ankle dorsiflexion L5/ K45Ctyimli flexion S1 5/5 DTRBleeps 2+Triceps 2+Brachioradialis 2+Patellar 2+Achilles 2+ MUSCULOSKELETAL: [] UPPEREXTREMITIES: The patient had full active ROM in fingers, wrist, elbow, and shoulder. The patient demonstrated ability to fully flex/extend/abduct/adduct fingers, make ok sign, cross 2nd/3rd digits, extend 1st digit fully.. Radial pulse 2+, CR<2 seconds. LOWER EXTREMITIES: Pt has full, active ROM of toes, ankle, knee, and hip. Dorsalis pedis/posterior tibialis pulses 2+, CR<2 seconds. SPINE: Skin warm, dry, intact. A&P Assessment and plan (1) Degenerative scoliosis: Right L4/5 MIS decompression Status: Acute Attestations Medical Necessity Statement*: failed conservative treatment Coding Level of Care Code Acute Electric Truck Operator for Chg Fwd Diagnoses Degenerative scoliosis M41.80
[2020-12-01] MEDS: sodium chloride 0.9% 1,000 ML 30 ML IV (08:49)
--- NOTE | 2020-12-01 09:11 | ANES.PAUD2 ---
Pre-Anesthetic Update Pre-Anesthetic Assessment: Date of Surgery/Procedure: 12/01/20 Preop Diagnosis: lumbar stenosis Proposed Procedure: Operation Date: 12/01/20 10:30 Proposed Procedures p Lumbar Spine Decompression 84526 L4/5 [facility] M48.062(Right) - Clay Lam, DO Any changes to Pre-Anesthetic Assessment?: No Last Intake: Intake Last Liquid Date 11/30/20 Last Liquid Time 21:00 Last Solid Date 11/30/20 Last Solid Time 21:00 Labs Last 48hrs: Laboratory Results - last 48 hr 12/01/20 08:40 Sodium Cancelled Potassium Cancelled Chloride Cancelled Carbon Dioxide Cancelled Anion Gap Cancelled BUN Cancelled Creatinine Cancelled GFR Calculation Cancelled Glucose Cancelled Calculated Osmolal ity Cancelled Calcium Cancelled Vitals: Temperature 97.1 F L 12/01/20 08:35 Pulse Rate 63 12/01/20 08:35 Pulse Rhythm 12/01/20 08:35 Pulse Strength 3+ Normal 12/01/20 08:35 Respiratory Rate 18 12/01/20 08:35 Blood Pressure 197/89 12/01/20 08:35 Blood Pressure Kitty n 125 12/01/20 08:35 Pulse Oximetry 97 12/01/20 08:35 Oxygen Delivery Me thod 12/01/20 08:35 Exam: Pre-Anes Outpt Exam: alert, oriented x 3, clear to auscultation bilaterally and regular rate & rhythm Cardiac Studies: No Data to Display
[2020-12-01 09:35] LABS: Anion Gap 15.6 (5-19); Blood Urea Nitrogen 21 mg/dL (8-23); Calcium 8.9 mg/dL (8.5-10.5); Carbon Dioxide 22 mmol/L (22-29); Chloride 104 mmol/L (98-107); Glucose 121 mg/dL (65-115); Osmolality Calculated 286 mOsm/kg (285-295); Potassium 5.6 mmol/L (3.5-5.1); Sodium 136 mmol/L (136-145)
--- NOTE | 2020-12-01 09:39 | ECG_ITS ---
[facility] Test Date: 2020-12-01 Pat Name: Kati Chris Department: Room: Gender: Female Potato Peeler: : 1940 Requested By: Linda Tubbs Order Number: [id number] Betty MD: Edson Ahumada M.D. Measurements Intervals [place] Rate: 54 P: 66 [place]: 170 QRS: -45 QRSD: 166 T: 113 QT: 496 QTc: 472 Interpretive Statements SINUS BRADYCARDIA MARKED LEFT AXIS DEVIATION [QRS AXIS < -30] LEFT BUNDLE BRANCH BLOCK [120+ ms QRS DURATION, 80+ ms Q/S IN V1/V2, 85+ ms R IN I/aVL/V5/V6] Compared to ECG 11/22/2020 22:20:04 No significant changes Electronically Signed On 12-01-2020 12:31:12 CDT by Edson Ahumada M.D. [id number]
[2020-12-01] MEDS: insulin regular-human 100 units/1 mL 10 UNIT IVP (10:10)
[2020-12-01] MEDS: dextrose 50% syringe 50 mL IVP (10:11)
--- NOTE | 2020-12-01 11:05 | P.OP_ITS ---
Operative Report Date of procedure: December 01, 2020 Pre-op Diagnosis: lumbar stenosis Post-op diagnosis: same Procedure Done: Right L4/5 laminectomy with partial facetectomy Surgeon: Clay Lam Anesthesia: General Estimated blood loss (mL): 5 Condition: stable Disposition: PACU Procedure: Right L4/5 laminectomy with partial facetectomy Patient is brought to the operative suite. After undergoing anesthesia they are placed in the supine position. All areas of impingement are well padded. Patient is then prepped and draped in the normal sterile fashion. A skin incision is made over the L4/5 level. This is confirmed under c-arm guidance. A series of dilators are passed and the tubular retractor is docked on the L4 lamina. A bovie is used to clear the soft tissue off the lamina and the L 4/5 facet joint. A high speed krishan is then used to perform the laminecto my and take down the medial aspect of the L 4/5 facet joint. A kerrison rongeure was then used to take down the remaining lamina and smooth the edge of the laminectomy up to the point where the ligamentum flavum attaches. Attention was then brought to the medial aspect of the facet joint. The remaining medial aspect of the superior and inferior aspect of the facet joint were taken down with the kerrison from the pedicle of L4 to L 5. The facet joint had significant hypertrophy. Attention was then brought to the Ligamentum Flavum. The ligament was taken down from the lamina of L4 to L5 and out medially to the remaining facet joint. The ligament was calcified and thick. The dura was then exposed. The dura was in good repair. The L4 nerve was then traced with a curette out the L4/5 foramen and found to be adequately decompressed. The L5 nerve was traced with a curette around the L5 pedicle. The lateral recess was opened with a kerrison helping to further decompress the L5 nerve. Wound is then irrigated copiously with saline and surgiflo is used to stop any bleeding. The tubular retractor is removed and the wound is closed with vicryl and monocryl suture. Glue is then used to protect the wound. A sterile dressing is then placed. Patient was then placed in the supine position and transferred to the PACU in stable condition.
[2020-12-01] MEDS: fentaNYL 50 mcg/mL INJ 2mL IVP (11:27)
--- NOTE | 2020-12-01 11:27 | P.PCN_ITS ---
PACU note PACU note: VSS, Good respiratory effort, report to EXECUTIVE PASTRY CHEF Post-Anesthesia Exam: awake
--- NOTE | 2020-12-01 11:27 | PM.PACU ---
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
[2020-12-01] MEDS: HYDROcodone-acetaminophen 5-325 mg Tablet 1 TAB PO (12:11)
--- NOTE | 2020-12-01 12:15 | SUR.PHASEII ---
discussed bp with dr. barker. Bp 217/78 . states if no symptoms it is ok to discharge. No symptoms noted. Patient states run high all the time.
--- NOTE | 2020-12-01 14:25 | ANE.PACU2 ---
Inpatient post-anesthesia follow up: Airway intact: Yes Vital signs: Temperature 98.1 F Pulse Rate 60 Respiratory Rate 18 Blood Pressure 204/82 Pulse Oximetry 97 Oxygen Delivery Me thod Room Air Oxygen Flow Rate Fraction of Inspir ed Oxygen Hydration adequate: Yes Nausea and vomiting: No Pain level: 2 Mental status: Baseline
== END 2020-12-01 12:48 | disposition home or self-care (01) ==
PROVIDERS: PCP Family Medicine; Visit Provider Orthopaedic Surgery
PROC: (CPT 63005; principal; 2020-12-01 10:10)
DX: M48.061 Spinal stenosis, lumbar region without neurogenic claudication (principal); Z79.82 Long term (current) use of aspirin; I25.2 Old myocardial infarction; Z95.5 Presence of coronary angioplasty implant and graft; Z82.49 Family history of ischemic heart disease and other diseases of the circulatory system; I25.10 Atherosclerotic heart disease of native coronary artery without angina pectoris
CPT/HCPCS: 63047; 36415; 72100; 76000; 80048; 93005; 96365; J0690; J1100; J1815; J2370; J2405; J2704; J2710; J3010; J3490; J7030

== ENCOUNTER → 2021-01-01 10:44 | Outpatient (BNVA) | payer MEDICARE, OTHER, SELFPAY | PROVIDERS: PCP Family Medicine; Referring Provider Orthopaedic Surgery; Visit Provider Anesthesiology Pain Medicine | DX: G89.29 Other chronic pain (principal); M47.816 Spondylosis without myelopathy or radiculopathy, lumbar region; M54.16 Radiculopathy, lumbar region; M41.9 Scoliosis, unspecified; Z79.891 Long term (current) use of opiate analgesic | CPT/HCPCS: 99205 ==

== ENCOUNTER 2021-02-09 11:26 | Outpatient (CLI) | payer MEDICARE, OTHER, SELFPAY ==
--- NOTE | 2021-02-09 11:45 | MR_ITS ---
WS: [id number] MRI LUMBAR SPINE NONCONTRAST HISTORY: M54.16 - Radiculopathy, lumbar region COMPARISON: 10/17/2020 TECHNIQUE: Sagittal and axial multisequence imaging is submitted. Marked scoliosis with degenerative disc disease and osteophytosis throughout the entire spine. Marked LEFT thoracic and RIGHT lumbar curvature. Severe narrowing disc spaces and endplate osteophytes. Conus terminates normally at L1-2 disc level. L1-L2: Nerve roots in the LEFT thecal sac due to scoliosis. Mild LEFT foraminal narrowing. L2-L3: Deformity thecal sac and nerve roots distributed in the LEFT thecal sac with mild LEFT foramin al stenosis. LEFT facet arthritis. L3-L4: Marked deformity the thecal sac due to combination of scoliosis, facet and ligamentum flavum a rthritis. Mild to moderate central and mild LEFT foraminal stenosis. There is also moderate bilateral subarticular recess stenosis. L4-L5: Deformity thecal sac with marked ligamentum flavum disease and facet arthritis and disc bulgin g. Significant encroachment upon the RIGHT L5 traversing nerve root. Moderate central with moderate t o severe RIGHT foraminal stenosis. Osteophyte and ligamentum flavum hypertrophy deforms and abuts the RIGHT lateral thecal sac. Small amount of fluid in the facet joints bilaterally. L5-S1: Disc osteophyte complex RIGHT paracentral with mild annular disc bulging and osteophytic ridgi ng. Moderate to severe RIGHT foraminal stenosis and mild LEFT foraminal stenosis. Postsurgical changes are noted at the L4-5 disc level and in the posterior soft tissues. Cholelithiasis. MR/MR lumbar spine wo con* [id number] IMPRESSION: 1. Severe thoracolumbar scoliosis and advanced degenerative changes throughout the lumbar spine. 2. Postsurgical changes are noted at the L4-5 level. There is edema within the paravertebral soft tissues. 3. Mild to moderate central with moderate bilateral subarticular recess stenos is at L3-4. No change. 4. Moderate central with moderate to severe RIGHT foraminal stenosis due to di sc and osteophyte disease and the scoliosis. Encroachment upon the RIGHT L5 tra versing nerve root is unchanged. 5. Moderate to severe RIGHT foraminal stenosis due to disc osteophyte complex. No obvious change.
== END 2021-02-09 11:27 | disposition home or self-care (01) ==
LOC: RADSHAW 11:28
PROVIDERS: PCP Family Medicine; Visit Provider Orthopaedic Surgery
DX: M54.16 Radiculopathy, lumbar region (principal); M41.86 Other forms of scoliosis, lumbar region; M48.061 Spinal stenosis, lumbar region without neurogenic claudication
CPT/HCPCS: 72148

== ENCOUNTER → 2021-02-12 13:31 | Outpatient (BNVA) | payer MEDICARE, OTHER, SELFPAY | PROVIDERS: PCP Family Medicine; Visit Provider Anesthesiology Pain Medicine | DX: G89.29 Other chronic pain (principal); M51.17 Intervertebral disc disorders with radiculopathy, lumbosacral region; M47.816 Spondylosis without myelopathy or radiculopathy, lumbar region; M41.9 Scoliosis, unspecified; M79.604 Pain in right leg; Z79.891 Long term (current) use of opiate analgesic | CPT/HCPCS: 99214 ==

== ENCOUNTER → 2021-02-23 15:00 | Outpatient (BNVA) | payer MEDICARE, OTHER, SELFPAY | PROVIDERS: PCP Family Medicine; Visit Provider Nurse Practitioner Family | DX: I25.10 Atherosclerotic heart disease of native coronary artery without angina pectoris (principal); I10 Essential (primary) hypertension | CPT/HCPCS: 80048; 83880 ==

== ENCOUNTER → 2021-03-03 11:10 | Outpatient (BNVA) | payer MEDICARE, OTHER, SELFPAY | PROVIDERS: PCP Family Medicine; Visit Provider Internal Medicine Cardiovascular Disease | DX: I10 Essential (primary) hypertension (principal); I25.10 Atherosclerotic heart disease of native coronary artery without angina pectoris | CPT/HCPCS: 80048 ==

== ENCOUNTER 2021-03-10 11:32 | Outpatient (CLI) | payer MEDICARE, OTHER, SELFPAY ==
--- NOTE | 2021-03-10 11:44 | NMCV_ITS ---
NM joo perf SPECT r/s* [id number] Kati Chris Age: 81 Gender: F : 1940 Exam Date: 03/10/2021 12:59 Ordering Phys: Mildred Castellanos MD ([email or web address]) Technologist: NATIVIDAD Davidson Exam Location: [facility] Indications: SHORTNESS OF BREATH STRESS TEST Please [facility] for [facility] IMAGE PROTOCOL Rest/Stress 1 Lexiscan Day Radiopharmaceutical Dose (mCi) Administration Site Administered by Rest: Tc-99m 10.7 IV NATIVIDAD Davidson Sestamibi Stress:Tc-99m 32.7 IV NATIVIDAD Davidson Sestamibi Rest: 10-Mar-2021 60 Discovery 630 Stress: 10-Mar-2021 30 Discovery 630 0.4mg Lexiscan. Supine position only as patient was unable to lay prone. SPECT RESULTS Technical Quality: Excellent Raw Data Analysis: Normal Image Corrections: No attenuation or motion correction applied Summed Stress Score: 2 Summed Rest Score: 7 Summed Difference Score: 0 PERFUSION FINDINGS Large area of persistently decreased tracer uptake noted in basal to distal anterior and anteroseptal wall suggestive of old myocardial infarction versus scarring. Medium-sized area of fixed perfusion defect noted in basal to distal inferoseptal wall suggestive of old myocardial infarction versus scarring. FUNCTIONAL RESULTS (calculated via Gated SPECT) Stress Image LV EF (%): 48 Stress EDV (mL):96 TID: 0.98 Stress ESV (mL):50 Rest Image LV EF (%): 48 FUNCTIONAL FINDINGS: There appeared to be anterior and septal wall hypokinesis. There is mid to distal inferior wall hypokinesis IMPRESSIONS Large area of old myocardial infarction versus scarring noted in basal to distal anterior and anteroseptal wall without significant ischemia. Medium- sized area of old myocardial infarction versus scarring noted in basal to distal inferoseptal wall. EKG segment will be documented separately. Mildred Castellanos MD (Electronically Signed) Final Date: 10 March 2021 18:42 S
--- NOTE | 2021-03-10 11:44 | ECG_ITS ---
[facility] Test Date: 2021-03-10 Pat Name: Kati Chris Department: Room: Gender: Female Manager Transfer: : 1940 Requested By: Mildred Duran Order Number: [id number] Betty MD: MILDRED DURAN Interpretive Statements NAME OF STUDY: LEXISCAN SESTAMIBI STRESS TEST INDICATION: Shortness of Breath, NOTE: Please note that this is the electrocardiogram portion of the Lexiscan/Sestamibi stress test. The perfusion scan will be documented separately. DATA: Baseline heart rate was 66 beats per minute. Baseline blood pressure was 181/71 millimeters of mercury. Target heart rate was 141. Maximum heart rate achieved was 89. which was 63 % of the predicted target heart rate. Maximum blood pressure was 191/74 millimeters of mercury. The reason for ending the test was completion of the protocol. The patient did not experience any symptoms. ELECTROCARDIOGRAM: BASELINE: Sinus rhythm. Normal axis. Left bundle branch block. EXERCISE: After Lexiscan injection, no ST-T changes suggestive of ischemic noted. No arrhythmia noted. CONCLUSION: Please note due to baseline abnormality of the EKG specificity and sensitivity of the EKG portion of LexiScan MIBI stress test will be low 1. EKG not suggestive of ischemia 2. Lexiscan injection unremarkable. 3. Perfusion scan will be documented separately. Electronically Signed On 03-12-2021 12:06:29 CDT by MILDRED DURAN [email or web address]
[2021-03-10 11:53] VITALS: BMI 24.9
[2021-03-10] MEDS: regadenoson 0.4 Mg/5 ml Syringe IVP (13:31)
[2021-03-10 14:10] VITALS: BP 159/69; PULSE 76
== END 2021-03-10 11:33 | disposition home or self-care (01) ==
LOC: CDL 11:35
PROVIDERS: PCP Family Medicine; Visit Provider Internal Medicine Cardiovascular Disease
DX: R06.02 Shortness of breath (principal)
CPT/HCPCS: 78452; 93017; A9500; J2785

== ENCOUNTER 2021-03-11 09:12 | Outpatient (CLI) | payer MEDICARE, OTHER, SELFPAY ==
--- NOTE | 2021-03-11 09:30 | USCV_ITS ---
Kati Chris Age: 81 Gender: F : 1940 Exam Date: 03/11/2021 09:53 Ordering Phys: Rubi Schmidt Technologist: Nate Walls [place] [facility] [place]: heart disease BP: 186 / 78 HR: 53 Rhythm: Other Technical Quality: Suboptimal MEASUREMENTS (Male / Female) Normal Values 2D ECHO LV Diastolic Diameter PLAX 3.1 cm 4.2 - 5.9 / 3.9 - 5.3 cm LV Systolic Diameter PLAX 2.8 cm IVS Diastolic Thickness 1.1 cm 0.6 - 1.0 / 0.6 - 0.9 cm IVS Systolic Thickness 1.2 cm LVPW Diastolic Thickness 1.9 cm 0.6 - 1.0 / 0.6 - 0.9 cm LVPW Systolic Thickness 2.1 cm LVOT Diameter 2.0 cm LV Ejection Fraction 2D Teich 24.1 % LV Ejection Fraction MOD 2C 34.2 % LV Ejection Fraction 2C AL 36.6 % LA Diameter 2.6 cm LA Width 3.0 cm LA Height 3.9 cm RA Width 3.6 cm RA Height 4.0 cm DOPPLER AV Peak Velocity 168.0 cm/s LVOT Peak Velocity 86.0 cm/s AV Area Cont Eq vti 1.4 cm squared AV Area Cont Eq pk 1.7 cm squared MV Peak Velocity 230.0 cm/s MV Area PHT 2.7 cm squared Mitral E to A Ratio 0.6 MV E' Velocity 31.0 cm/s Mitral E to MV E' Ratio 13.3 Mitral E to LV E' Lateral Ratio 12.4 Mitral E to LV E' Septal Ratio 14.7 TR Peak Velocity 161.4 cm/s TR Peak Gradient 10.4 mmHg TR Mean Velocity 102.1 cm/s TR Mean Gradient 4.4 mmHg TR Velocity Time Integral 32.3 cm RV Acceleration Time 0.1 s RV Ejection Time 0.3 s RV AcT/ET 0.3 FINDINGS Left Ventricle Mildly increased left ventricular cavity size. Moderately decreased left ventricular systolic function. Left ventricular ejection fraction is estimated at 40 %. There is septal and anterior wall hypokinesis.Grade I/IV diastolic dysfunction (abnormal relaxation filling pattern), normal to mildly elevated filling pressures. Right Ventricle The right ventricle is normal in size and function. RVSP could not be calculated due to incomplete tricuspid regurgitation velocity profile. Right Atrium The right atrium is normal in size. Left Atrium The left atrium is normal in size. Mitral Valve Moderately thickened mitral valve. No mitral valve stenosis. No mitral valve regurgitation. Aortic Valve Severe aortic valve calcification. Moderate aortic valve stenosis, mean gradient 6.4 mmHg, TWYLA 1.4 cm squared. No aortic valve regurgitation. Tricuspid Valve Structurally normal tricuspid valve without significant stenosis or regurgitation. Pulmonic Valve Structurally normal pulmonic valve without significant stenosis. There is no pulmonic regurgitation. Pericardium Normal pericardium without effusion. Aorta Normal ascending aorta dimension. CONCLUSIONS 1-Mildly increased left ventricular cavity size. Moderately decreased left ventricular systolic function. Left ventricular ejection fraction is estimated at 40 %. There is septal and anterior wall hypokinesis.Grade I/IV diastolic dysfunction (abnormal relaxation filling pattern), normal to mildly elevated filling pressures. 2-Severe aortic valve calcification. Moderate aortic valve stenosis, mean gradient 6.4 mmHg, TWYLA 1.4 cm squared. No aortic valve regurgitation. 3-Moderately thickened mitral valve. No mitral valve stenosis. No mitral valve regurgitation. 4-There is no pericardial effusion. 5-The right ventricle is normal in size and function. RVSP could not be calculated due to incomplete tricuspid regurgitation velocity profile. 6-Right atrial pressure is around 5 mm of mercury. 7-When compared to the prior echocardiogram dated June 17, 2017 there appeared to be moderate aortic stenosis with aortic valve area of 1.4 cm2 now however left ventricle ejection fraction remained moderately reduced at 40 to 45% Mildred Castellanos MD (Electronically Signed) Final Date: 11 March 2021 16:02 S
== END 2021-03-11 09:13 | disposition home or self-care (01) ==
LOC: US 09:13
PROVIDERS: PCP Family Medicine; Visit Provider Nurse Practitioner Family
DX: I25.10 Atherosclerotic heart disease of native coronary artery without angina pectoris (principal); I35.0 Nonrheumatic aortic (valve) stenosis; I34.8 Other nonrheumatic mitral valve disorders
CPT/HCPCS: 93306

== ENCOUNTER 2021-04-08 13:28 | Outpatient (CLI) | payer MEDICARE, OTHER, SELFPAY ==
[2021-04-08 14:50] LABS: Blood Urea Nitrogen 27 mg/dL (8-23); Calcium 9.2 mg/dL (8.5-10.5); Carbon Dioxide 33 mmol/L (22-29); Chloride 88 mmol/L (98-107); Glucose 114 mg/dL (65-115); Osmolality Calculated 282 mOsm/kg (285-295); Sodium 133 mmol/L (136-145)
[2021-04-08 14:52] LABS: Anion Gap 15.1 (5-19); Potassium 3.1 mmol/L (3.5-5.1)
== END 2021-04-08 13:29 | disposition home or self-care (01) ==
PROVIDERS: PCP Family Medicine; Visit Provider Family Medicine
DX: E87.6 Hypokalemia (principal)
CPT/HCPCS: 80048

== ENCOUNTER 2021-04-17 14:09 | Outpatient (CLI) | payer MEDICARE, OTHER, SELFPAY ==
[2021-04-17 14:35] LABS: Basophils # 0.1 10^3/uL (0.0-0.1); Basophils % 0.8 %; Eosinophils # 0.3 10^3/uL (0.0-0.8); Eosinophils % 3.7 %; Hematocrit 36.3 % (37.0-47.0); Hemoglobin 11.8 g/dL (11.5-15.3); Lymphocytes # 1.5 10^3/uL (0.8-4.8); Lymphocytes % 20.8 %; Mean Corpuscular HGB Conc 32.5 g/dL (30.0-36.0); Mean Corpuscular Hemoglobin 32.2 pg (28.0-34.0); Mean Corpuscular Volume 98.9 fl (81-99); Mean Platelet Volume 11.5 fL (7.4-10.4); Monocytes # 0.7 10^3/uL (0.2-0.9); Monocytes % 10.2 %; Neutrophils # 4.67 10^3/uL (1.8-7.7); Neutrophils % 64.4 %; Nucleated Red Blood Cells % 0 %; Platelet Count 219 10^3/cmm (130-400); Red Blood Count 3.67 10^6/uL (4.1-5.3); Red Cell Distribution Width 11.9 % (12.1-15.1); White Blood Count 7.3 10^3/uL (4.0-10.0)
[2021-04-17 15:04] LABS: Blood Urea Nitrogen 24 mg/dL (8-23); Calcium 9.2 mg/dL (8.5-10.5); Carbon Dioxide 29 mmol/L (22-29); Chloride 88 mmol/L (98-107); Glucose 129 mg/dL (65-115); Osmolality Calculated 282 mOsm/kg (285-295); Sodium 133 mmol/L (136-145)
[2021-04-17 15:22] LABS: Anion Gap 19.1 (5-19); Potassium 3.1 mmol/L (3.5-5.1)
== END 2021-04-17 14:10 | disposition home or self-care (01) ==
LOC: LAB 14:13
PROVIDERS: PCP Family Medicine; Visit Provider Family Medicine
DX: E87.6 Hypokalemia (principal); Z51.81 Encounter for therapeutic drug level monitoring
CPT/HCPCS: 36415; 80048; 85025; 87635

== ENCOUNTER 2021-04-22 17:50 | Observation (INO) | payer MEDICARE, OTHER, SELFPAY ==
[2021-04-21 11:58] VITALS: BMI 26.0
--- NOTE | 2021-04-21 12:30 | ANES.PREANE2 ---
Pre-Anesthetic Assessment Pre-Anesthetic Assessment: Height/Weight: Height 1.55 m Weight 62.596 kg Preop Diagnosis: lumbar stenosis Proposed Procedure: Operation Date: 04/22/21 13:40 Proposed Procedures p Posterior Lumbar Interbody Fusion L4/5 71138 [id number] 07736 M48.06 M54.16(Not Applicable) - Clay H Carole, DO Was Beta Gino taken within 24 hours: N/A Was Clonidine taken within 24 hours: Yes Social: Social History: No tobacco Exam: Pre-Anes Outpt Exam: alert, oriented x 3, clear to auscultation bilaterally and regular rate & rhythm Airway: Submandibular: WNL Cervical ROM: WNL MP: 4 History/ROS: No significant complaints CV/HEM: CV/HEM: CAD (Stent), CHF and HTN Comments: Echo 2020: EF 40%; moderate Anesthetic Plan: ASA status: 3 Anesthesia: Anesthesia Evaluation and General Risk of > 500 ml blood loss (7ml/kg in children): Yes, adequate IV access and fluids planned PFSH Anesthesia PFSH: Medical History (Updated 03/09/21 @ 17:42 by Artis Hawkins MD) Chronic low back pain Coronary artery disease Eye pain GERD (gastroesophageal reflux disease) History of chronic hypertension History of gallstones History of hypothyroidism History of ID (myocardial infarction) History of pneumonia Malignant hypertension Surgical History History of heart artery stent History of tubal ligation S/P hysterectomy Family History Other CAD (coronary artery disease) Hypertension Social History Smoking and tobacco status: never smoked Second hand smoke exposure: No Alcohol intake: never Household members: spouse Marital status: Current occupational status: retired History of recent travel: No Data Anesthesia Cardiac Studies: Echocardiogram 03/11/21
[2021-04-22] VITALS (20 sets, daily range): BP systolic 129–199; BP diastolic 68–101; PULSE 57–66; RESP 12–23; TEMP 36.5–37.1; O2SAT 92–100; BMI 25.7
--- NOTE | 2021-04-22 | XR_ITS ---
WS: [id number] Exam: XR lumbar spine 1V port [id number] Date/Time of Exam: 04/22/2021 12:00 AM Reason For Exam: MARIA T PICS Intraoperative AP and lateral C-arm images of the lumbar spine are submitted for evaluation. Detail i s significantly limited. The lateral projection shows apparent interbody fusion from L4 to S1 with pe dicle screws and posterior rods. There is significant lumbar scoliosis noted. Some images depict surg ical retractors in place. No other significant finding on this limited exam.
--- NOTE | 2021-04-22 | SCC_ITS ---
Procedure Done: 1. L4-L5 posterior spine fusion 2. L4-L5 instrumentation 3. Laminectomy with facetecomy of L4/5 4. Computer navigation/ stereo tactic of spine 5. Bone marrow aspirate from right iliac crest 6. Use of autograft and allograft 13 seconds of fluoroscopic guidance, for a cumulative dose of 38.9 mGy, was provided to Dr. Lam by the radiology department. C-arm images of the lumbar spine were saved for the patient's permanent record. HANNAH
[2021-04-22] MEDS: sodium chloride 0.9% 1,000 ML 30 ML IV (12:58)
--- NOTE | 2021-04-22 14:05 | P.ANESUD_ITS ---
Pre-Anesthetic Update Pre-Anesthetic Assessment: Date of Surgery/Procedure: 04/22/21 Preop Coco gnosis: lumbar stenosis Proposed Procedure: Operation Date: 04/22/21 13:40 Proposed Procedures p Posterior Lumbar Interbody Fusion L4/5 40822 [id number] 83556 M48.06 M54.16(Not Applicable) - Clay Lam, DO Any changes to Pre-Anesthetic Assessment?: No Last Intake: Intake Last Liquid Date 04/22/21 Last Liquid Time 07:30 Last Solid Date 04/21/21 Last Solid Time 21:00 Vitals: Temperature 98.8 F 04/22/21 12:38 Temperature Source Temporal Artery S can 04/22/21 12:38 Pulse Rate 60 04/22/21 12:38 Respiratory Rate 16 04/22/21 12:38 Blood Pressure 190/99 04/22/21 12:38 Blood Pressure Kitty n 129 04/22/21 12:38 Pulse Oximetry 96 04/22/21 12:38 Oxygen Delivery Me thod 04/22/21 12:38 Exam: Pre-Anes Outpt Exam: alert, oriented x 3, clear to auscultation bilaterally and regular rate & rhythm Cardiac Studies: Echocardiogram 03/11/21
--- NOTE | 2021-04-22 15:17 | PM.HP ---
Providers/Chief Complaint Primary Care Provider: Doe Bui MD Chief Complaint: Lumbar stenosis History of Present Illness Kati Chris is a 81 year old female She states after her surgery she was doing well but after some time she noted pain to her low back and right lower leg pain. She continues to complain of pain and numbness to her right lateral lower extremity. Chief Complaint: back pain Onset: years no known injury Duration: years Characteristics: ache Severity: 09/03 Location: low back Radiating symptoms: right lower extremity anterior and medial Aggravating factors: moving, standing up, walking long distances Alleviating factors: none Neuro deficits: denies numbness, tingling, weakness, incontinence of bowel/bladder, saddle anesthesia. Prior tx: RAFIQ Review of Systems Narrative: General ROS: negative for weight changes, fever ENT ROS: negative for nasal congestion, drainage or bleeding, sore throat, dysphagia or ear pain Eyes: PERRL Hematological and Lymphatic ROS: negative for swollen glands or abnormal bleeding Endocrine ROS: negative for polyuria/polydpsia or new changes in weight Respiratory ROS: negative for cough, shortness of breath, or wheezing Cardiovascular ROS: negative for chest pain or dyspnea on exertion Gastrointestinal ROS: negative for reflux, abdominal pain, change in bowel habits, or black or bloody stools Musculoskeletal ROS: negative for back pain, neck pain, or joint pain or swelling except for current problem Neurological ROS: negative for TIA or stoke symptoms Skin: no rashes Medications/Allergies Home Medications Medication Instructions Recorded Confirmed Last Taken Type felodipine 10 mg PO DAILY 07/04/19 04/22/21 04/21/21 History hydrocodone-acetaminophen [[place]] 1 tab PO QID PRN 07/04/19 04/22/21 04/22/21 History isosorbide mononitrate 60 mg PO DAILY 07/04/19 04/22/21 04/22/21 History krill oil 500 mg capsule 1,000 mg PO DAILY PRN 08/26/20 04/22/21 04/15/21 History multivitamin 1 tab PO DAILY 11/04/20 04/22/21 04/15/21 History torsemide 5 mg tablet 5 mg PO DAILY tab 11/04/20 04/22/21 04/19/21 History magnesium 250 mg tablet 250 mg PO DAILY 11/18/20 04/22/21 04/15/21 History cholecalciferol (vitamin D3) 1,250 1,250 mcg PO DAILY PRN 02/09/21 04/22/21 04/15/21 History mcg (50,000 unit) capsule gabapentin 100 mg capsule 100 mg PO BID #60 cap 02/12/21 04/22/21 04/21/21 Rx hydrochlorothiazide 25 mg tablet 25 mg PO DAILY #30 tab 02/17/21 04/22/21 04/21/21 Rx clonidine HCl 0.1 mg tablet 0.1 mg PO DAILY tab 02/23/21 04/22/21 04/22/21 History tamsulosin 0.4 mg capsule 0.4 mg PO BID #30 cap 02/23/21 04/22/21 04/21/21 Rx valsartan 160 mg tablet 160 mg PO BID #60 tab 02/27/21 04/22/21 04/21/21 Rx Allergies Allergy/AdvReac Type Severity Reaction Status Date / Time prazosin Allergy Severe ALGY-Difficulty Verified 04/21/21 11:43 Breathing hydralazine Allergy Unknown Verified 04/21/21 11:43 PFSH Acute PFSH: Medical History (Updated 04/22/21 @ 15:19 by Clay Lam DO) Chronic low back pain Coronary artery disease Eye pain GERD (gastroesophageal reflux disease) History of chronic hypertension History of gallstones History of hypothyroidism History of LA (myocardial infarction) History of pneumonia Malignant hypertension Surgical History History of heart artery stent History of tubal ligation S/P hysterectomy Family History Other CAD (coronary artery disease) Hypertension Social History Smoking and tobacco status: never smoked Second hand smoke exposure: No Alcohol intake: never Household members: spouse Marital status: Current occupational status: retired History of recent travel: No Vitals/I&O/Wt Last Vital Signs Temp 98.8 F 04/22/21 12:38 Pulse 60 04/22/21 12:38 Resp 16 04/22/21 12:38 BP 190/99 04/22/21 12:38 Pulse Ox 96 10/27/21 12:38 Weight last 48 hrs Weight 138 lb Physical Exam Narrative: EXAM NARRATIVE: CONSTITUTIONAL: The patient is a normal appearing [] in no apparent distress. GENERAL: Patient in no acute distress. CARDIAC: Regular rate and rhythm. CHEST: Normal inspiratory effort, normal respiratory rate. ABDOMEN: Soft and nontender. SKIN: Clear, warm and intact. NEURO?PSYCH: The patient is alert and oriented to person, place and time. Sensorv /SILT Motor StrengthShoulder abduction C5 5/5Wrist extension C6 5/5Elbow extension C7 5/5Hand Sort Line Worker C8 5/5Finger abduction T15/5 Radial/ Ulnar/ Median n intact LowerSensory (SILT)Motor StrengthHin flexion L2/3Ant/inner thigh 5/5Hip adduction L2/3 5/5Knee extension L4 Lat thigh, 5/5Toe dorsiflexion L5 5/5Ankle dorsiflexion L5/ N47Dsbxftc flexion S1 5/5 DTRBleeps 2+Triceps 2+Brachioradialis 2+Patellar 2+Achilles 2+ MUSCULOSKELETAL: [] UPPEREXTREMITIES: The patient had full active ROM in fingers, wrist, elbow, and shoulder. The patient demonstrated ability to fully flex/extend/abduct/adduct fingers, make ok sign, cross 2nd/3rd digits, extend 1st digit fully.. Radial pulse 2+, CR<2 seconds. LOWER EXTREMITIES: Pt has full, active ROM of toes, ankle, knee, and hip. Dorsalis pedis/posterior tibialis pulses 2+, CR<2 seconds. SPINE: Skin warm, dry, intact. A&P Assessment and plan (1) Lumbar stenosis with neurogenic claudication: fusion L4/5 with decompresion Status: Acute Attestations Medical Necessity Statement*: failed conservative tx Coding Level of Care Code Acute Dba Developer for [facility] Fwd Diagnoses Lumbar stenosis with neurogenic claudication M48.062
[2021-04-22] MEDS: vancomycin 1,000 MG SDV 1000 MG ×2 (17:50)
[2021-04-22] MEDS: heparin, porcine 1,000 unit/mL INJ 10 mL 10000 UNIT IRRIGATION (17:53)
--- NOTE | 2021-04-22 18:04 | P.OP_ITS ---
Operative Report Date of procedure: April 22, 2021 Pre-op Diagnosis: lumbar stenosis with neurogenic claudication Post-op diagnosis: same Procedure Done: 1. L4-L5 posterior spine fusion 2. L4-L5 instrumentation 3. Laminectomy with facetecomy of L4/5 4. Computer navigation/ stereo tactic of spine 5. Bone marrow aspirate from right iliac crest 6. Use of autograft and allograft Surgeon: Clay Lam Adult Remedial Education Instructor: Solo Long Adult Remedial Education Instructor: The assembler surgical garment, Solo Long, JUANCHO was needed for his expertise under the microscope. He was important and necessary throughout the procedure to complete in a safe and timely manner. He assisted with patient positioning prepping and draping tissue retraction suctioning of the operative field protection of the dural sac and tissue closure Anesthesia: General Estimated blood loss (mL): 100 Condition: stable Disposition: PACU Procedure: 1. L4-L5 posterior spine fusion 2. L4-L5 instrumentation 3. Laminectomy with facetecomy of L4/5 4. Computer navigation/ stereo tactic of spine 5. Bone marrow aspirate from right iliac crest 6. Use of autograft and allograft After undergoing anesthesia patient was placed into the prone position all areas impingement were well-padded. Patient was prepped and draped in the normal sterile fashion. Skin incision was made over the L4-5 level. This was confirmed under C-arm guidance. Once the thoracolumbar fascia was split subperiosteal dissection was made out to the transverse processes of L4 and L5 bilaterally. After exposure was completed the bone marrow aspirate was taken from the right iliac crest. This was done using the Diamond cell needle. Using the sharp gouge aspirating using the blunt gouge and pushing in the region of some needle further aspirating then putting in the aspirator and pulling back 1 mm increments of blood. Once the tube was filled it was mixed with the osteoamp bone graft. As well as the autograft that would be taken later in the case. Next attention was taken to placing the fiducial into the right iliac crest. 2 pins were placed the right iliac crest. The position was attached. Linked to the computer. C-arm was brought in and spun around the patient. The in formation was then loaded into the computer and this information was used to place pedicle screws. Next attention was brought to placing the pedicle screws. A gearshift awl was used which was linked to the computer was placed into the L5 pedicle on the right. The ball probe was then used to feel the pedicle and then the screw was placed using computer navigation. This process was repeated at L4 on the right as well as L5 and L4 on the left. After the screws were placed attention was brought to performing the laminectomy on the right side as well as the facetectomy. This was done using high-speed bur curved curettes and Kerrison rongeurs. The previous laminotomy site was identified and scar tissue was peeled off the L5 nerve was traced around the L5 pedicle to ensure that it is adequately decompressed and then the roof of the foramen was taken out by taking out the facet joint and ensuring to the L4 nerve was completely decompressed. The lamina housekeeping cleaner was used to distract the L4-L5 space because the screws were touching each other on the right side and unable to put the distractor and once the lamina screws placed then a aziza was placed in the L4 and L5 spaces were distracted rods were placed and locked into position rods were placed at the L4 and L5 on the left side as well. These are all torqued down and locked into position. The transverse processes were decorticat ed on the right side and bone graft was placed. This was osteoamp and autograft. The lamina of the left side were decorticated and bone grafts placed on the side. Vancomycin powder was placed Hemovac drain was placed and thoracolumbar fascia was closed in a layered fashion with 0 Vicryl skin was closed with 2-0 Vicryl and nylon suture sterile dressings applied patient was transferred to the PACU in stable condition.
--- NOTE | 2021-04-22 18:15 | PM.CONSULT ---
Providers/Reason For Consult Consulting Physician/Specialty*: Internal Medicine Reason for Consult*: Medical Management Post-op Attending Physician: Clay Lam DO Primary Care Provider: Doe Bui MD History of Present Illness History of Present Illness Kati Chris is a 81 year old female with past medical history of chronic low back pain, coronary artery disease status post stents, GERD, hypertension, hypothyroidism, chronic kidney disease stage III, presented to the hospital today for elective L4-L5 fusion with decompression. Hospitalist has been consulted for postop medical management. Estimated blood loss 50 cc. Of note patient did have a L4-L5 laminectomy with partial facetectomy on November 2020. She stated that she was doing well after surgery but still had low back pain and right lower leg pain. She was taken for a lumbar fusion today. Patient seen postop. SHe tolerated the surgery well. She is awake, she states she is in a lot of pain. She was given fentanyl by anesthesia recently along with labetalol IV. SHe offers no other complaints besides back pain from surgery. On chart review it seems patient's blood pressure has been difficult to manage. She is currently on clonidine twice daily, spironolactone 12.5 daily, torsemide 5 mg daily, valsartan 160 twice daily, hydrochlorothiazide 25 daily, isosorbide mononitrate 60 mg daily felodipine 10 mg daily. Recent echo March 11, 2021 ?EF 40%, grade 1 diastolic dysfunction Severe aortic valve calcification, moderate aortic valve stenosis, moderately thickened mitral valve right ventricle normal in size and function. Recent stress test February 2021 Unremarkable Review of Systems General: Reports: ROS unobtainable due to mental status Meds/Allergies Home Medications and Allergies Home Medications Medication Instructions Recorded Confirmed Last Taken Type felodipine 10 mg PO DAILY 07/04/19 04/22/21 04/21/21 History hydrocodone-acetaminophen [[place]] 1 tab PO QID PRN 07/04/19 04/22/21 04/22/21 History isosorbide mononitrate 60 mg PO DAILY 07/04/19 04/22/21 04/22/21 History krill oil 500 mg capsule 1,000 mg PO DAILY PRN 08/26/20 04/22/21 04/15/21 History multivitamin 1 tab PO DAILY 11/04/20 04/22/21 04/15/21 History torsemide 5 mg tablet 5 mg PO DAILY tab 11/04/20 04/22/21 04/19/21 History magnesium 250 mg tablet 250 mg PO DAILY 11/18/20 04/22/21 04/15/21 History cholecalciferol (vitamin D3) 1,250 1,250 mcg PO DAILY PRN 02/09/21 04/22/21 04/15/21 History mcg (50,000 unit) capsule gabapentin 100 mg capsule 100 mg PO BID #60 cap 02/12/21 04/22/21 04/21/21 Rx hydrochlorothiazide 25 mg tablet 25 mg PO DAILY #30 tab 02/17/21 04/22/21 04/21/21 Rx clonidine HCl 0.1 mg tablet 0.1 mg PO DAILY tab 02/23/21 04/22/21 04/22/21 History tamsulosin 0.4 mg capsule 0.4 mg PO BID #30 cap 02/23/21 04/22/21 04/21/21 Rx valsartan 160 mg tablet 160 mg PO BID #60 tab 02/27/21 04/22/21 04/21/21 Rx hydrocodone-acetaminophen 1 - 2 tab PO Q4H PRN 7 Days #40 tab 04/22/21 Unknown Rx Allergies Allergy/AdvReac Type Severity Reaction Status Date / Time prazosin Allergy Severe ALGY-Difficulty Verified 04/21/21 11:43 Breathing hydralazine Allergy Unknown Verified 04/21/21 11:43 Current Medications Current Medications Generic Name Dose Route Start Last Admin Trade Name Freq PRN Reason Stop Dose Admin Sodium Chloride 1,000 mls @ 30 mls/hr 04/22/21 12:30 04/22/21 12:58 Sodium Chloride 0.9% IV 04/23/21 12:29 30 mls/hr .Q24H IMMANUEL Administration PFSH Acute PFSH: Medical History (Updated 04/22/21 @ 18:18 by Kimi Alonzo MD) Chronic low back pain Coronary artery disease Eye pain GERD (gastroesophageal reflux disease) History of chronic hypertension History of gallstones History of hypothyroidism History of DE (myocardial infarction) History of pneumonia Malignant hypertension Surgical History History of heart artery stent History of tubal ligation S/P hysterectomy Family History Other CAD (coronary artery disease) Hypertension Social History Smoking and tobacco status: never smoked Second hand smoke exposure: No Alcohol intake: never Household members: spouse Marital status: Current occupational status: retired History of recent travel: No Vitals/I&O/Wt Last Vital Signs Temp 98.8 F 04/22/21 12:38 Pulse 60 04/22/21 12:38 Resp 16 04/22/21 12:38 BP 190/99 04/22/21 12:38 Pulse Ox 96 04/22/21 12:38 04/22/21 04/22/21 04/22/21 06:59 14:59 22:59 Intake Total 60 / 60 Balance 60 / 60 Weight last 48 hrs Weight 62.596 kg Physical Exam Narrative: EXAM NARRATIVE: General: Alert oriented patient seen in PACU. Appears to be in pain and looks tearful. at bedside. HEENT: Normocephalic, atraumatic, EOMI, breathing NC Cardio: Regular rate rhythm, normal S1-S2, no murmurs rubs gallops, Respiratory: Good bilateral air entry, no wheezes no rhonchi appreciated GI: Abdomen soft, nontender, nondistended, bowel sounds + Extremities: Pulses 2+, no edema, no cyanosis, extremities warm Urinary Catheter Management^: Lim: Cath Placed During This Visit: yes Urinary Catheter Date of Insertion: 04/22/21 Urinary Catheter Time of Insertion: 15:35 A&P Assessment and plan (1) Lumbar stenosis with neurogenic claudication: Status: Acute (2) Lumbar radiculopathy: Status: Acute (3) Coronary artery disease: Status: Acute Qualifiers: Associated angina: without angina Coronary Disease-Associated Artery/Lesion type: [place] artery [place] vs. transplanted heart: [place] heart Qualified Code(s): I25.10 - Atherosclerotic heart disease of [place] coronary artery without angina pectoris Additional A&P Information #L4-L5 lumbar fusion with decompression postop day 0 -Management as per primary attending -We will check postop labs and monitor hemoglobin #Hypertension, uncontrolled -We will resume most of patient's home medications in morning. -Patient got valsartan and clonidine this morning. She did not take any other anti-hypertensive today. SHe recently received labetalol and additional dose of fentanyl. Her latest BP is 142/70 christina. Will hold off on giving her meds for now. Will talk to night hospitalist to start them as BP rises. #History of hypothyroidism it appears patient is on any medications. Will not restart we will let her follow-up with her primary. Fluids: Normal saline 70 cc/h Electrolytes: Replete as needed Nutrition: Cardiac diet Activity: Bedrest DVT prophylaxis: Heparin subcu Consult Attestations Medical Necessity Statement: Defer to primary team Time Spent in Patient Care: 16 - 35 minutes Coding Level of Care Code Acute Cleaning Associate for Lawrence Dayd Diagnoses Lumbar stenosis with neurogenic claudication M48.062 Lumbar radiculopathy M54.16 Coronary artery disease I25.10 Associated angina: without angina Coronary Disease-Associated Artery/Lesion type: [place] artery [place] vs. transplanted heart: [place] heart
[2021-04-22] MEDS: HYDROmorphone 1 mg/mL INJ 1 mL 0.5 MG IVP ×2 (18:19→18:29)
[2021-04-22] MEDS: fentaNYL 50 mcg/mL INJ 2mL IVP ×2 (18:42→18:47)
[2021-04-22] MEDS: labetalol 5 mg/mL SDV 20mL IVP (18:47)
[2021-04-22] MEDS: gabapentin 100 mg Capsule PO (21:08)
[2021-04-22] MEDS: docusate sodium 100 mg Capsule PO (21:09)
[2021-04-22] MEDS: tamsulosin 0.4 mg Capsule PO (21:09)
--- NOTE | 2021-04-22 21:14 | PC.NURSE ---
i reported low pulse 59 to nurse
[2021-04-22] MEDS: ketorolac 30 mg/mL INJ IVP (21:18)
[2021-04-22] MEDS: lactated ringers 1,000 ML 90 ML IV (21:19)
[2021-04-22] MEDS: losartan 50 mg Tablet PO (21:40)
[2021-04-22 22:00] LABS: Glucose Point of Care 157 mg/dL (70-110)
[2021-04-23] VITALS (8 sets, daily range): BP systolic 124–186; BP diastolic 54–76; PULSE 57–70; RESP 14–17; TEMP 36.6–36.9; O2SAT 93–97
[2021-04-23] MEDS: HYDROcodone-acetaminophen 5-325 mg Tablet PO (01:06)
--- NOTE | 2021-04-23 07:29 | ANE.PACU2 ---
Inpatient post-anesthesia follow up: Airway intact: Yes Vital signs: Temperature 97.9 F Pulse Rate 59 Respiratory Rate 16 Blood Pressure 124/67 Pulse Oximetry 97 Oxygen Delivery Me thod Room Air Oxygen Flow Rate 2 Fraction of Inspir ed Oxygen Hydration adequate: Yes Nausea and vomiting: No Pain level: 4 Mental status: Baseline
--- NOTE | 2021-04-23 08:00 | PM.PN ---
Documented by User: [email or web address] Burton 04/23/21 08:07 Subjective Subjective: Interval history: POD 1 Patient is resting comfortably. Reports some mild back pain. Legs are much better. She denies any shortness of breath, chest pain, headaches. Vitals/I&O/Wt Last Vital Signs Temp 98.5 F 04/23/21 07:49 Pulse 70 04/23/21 07:49 Resp 14 04/23/21 07:49 BP 186/76 04/23/21 07:49 Pulse Ox 93 04/23/21 07:49 04/22/21 04/23/21 04/23/21 22:59 06:59 14:59 Intake Total 60 / 60 240 / 300 60 / 60 Output Total 600 / 600 1000 / 1600 Balance -540 / -540 -760 / -1300 60 / 60 Weight last 48 hrs Weight 136 lb 8 oz Weight 138 lb Physical Exam Narrative: EXAM NARRATIVE: Patient presents alert and oriented x3 with a good general appearance normal normal affect. Normal coordination normal stability. Mild tenderness around the incisional site with the incision appear to be healing nicely. No signs of erythema or drainage. No signs of infection. Patient denies any fevers or chills. 4/5 motor strength both lower extremities with negative straight leg raise bilaterally. Calves are supple no medial thigh tenderness. Pulses are 2+ at the dorsalis pedis and posterior tibial region. Good capillary refill throughout normal sensation light touch both lower extremities. Urinary Catheter Management^: Lim: Cath Placed During This Visit: yes Reason for Continuing Indwelling Catheter: Perioperative Use in Selected Surgeries Urinary Catheter Date of Insertion: 04/22/21 Urinary Catheter Time of Insertion: 15:35 A&P Assessment and plan (1) Status post lumbar spinal fusion: We will discontinue her Hemovac drain. Physical therapy mobilize. Continue incentive spirometer for pulmonary toilet. We will discharge her home with restrictions of bending lifting or twisting. Continue walking program. We will see her back in the office in 1 week's time for wound check. Status: Acute Attestations Medical Necessity Statement*: ready to go home later today Coding Level of Care Code Acute [employer] Professor for Lawrence Begum Diagnoses Status post lumbar spinal fusion Z98.1 Documented by User: Clay Lam DO 04/23/21 08:13 Physical Exam Urinary Catheter Management^: Lim: Cath Placed During This Visit: no Coding Level of Care Code Acute [employer] Ministries Professor for Chg Fwd Diagnoses Status post lumbar spinal fusion Z98.1
--- NOTE | 2021-04-23 08:11 | P.DS_ITS ---
Discharge Providers Date of Admission: 04/22/21 17:50 Date of Discharge: April 23, 2021 Attending Provider at Admission: Clay Lam DO Attending Provider at Discharge: Clay Lam DO Primary Care Provider: Doe Bui MD Diagnoses at Discharge Discharge Diagnosis (1) Status post lumbar spinal fusion: Status: Acute Reason for Visit Reason for Visit: Lumbar stenosis Hospital Course Hospital Course Patient is admitted on 04/22/2021. She had a L4-5 lumbar fusion and decompression. Her stay was uneventful should be discharged on 04/23/2021. Physical Exam Urinary Catheter Management^: Lim: Cath Placed During This Visit: yes Reason for Continuing Indwelling Catheter: Perioperative Use in Selected Surgeries Urinary Catheter Date of Insertion: 04/22/21 Urinary Catheter Time of Insertion: 15:35 Discharge Data Data Completed and Pending: Pending at discharge Category Date Time Status C-arm Fluoroscopy [id number] Routine Exams 04/22/21 12:22 Ordered Labs from last 24 hours 04/22/21 21:57 POC Glucose 157 H Vitals: Last Vital Signs Temp 98.5 F 04/23/21 07:49 Pulse 70 04/23/21 07:49 Resp 14 04/23/21 07:49 BP 186/76 04/23/21 07:49 Pulse Ox 93 04/23/21 07:49 Discharge Plan Discharge Patient Disposition: Home Condition: Stable Prescriptions: New hydrocodone-acetaminophen 10-325 mg tablet 1 - 2 tab PO Q4H PRN (Reason: pain) 7 Days Qty: 40 RF: 0 Continued magnesium 250 mg tablet 250 mg PO DAILY RF: 0 cholecalciferol (vitamin D3) 1,250 mcg (50,000 unit) capsule 1,250 mcg PO DAILY PRN (Reason: Hypocalcemia) RF: 0 clonidine HCl 0.1 mg tablet 0.1 mg PO DAILY RF: 0 tamsulosin 0.4 mg capsule 0.4 mg PO BID Qty: 30 RF: 2 gabapentin 100 mg capsule 100 mg PO BID Qty: 60 RF: 0 hydrochlorothiazide 25 mg tablet 25 mg PO DAILY Qty: 30 RF: 3 valsartan 160 mg tablet 160 mg PO BID Qty: 60 RF: 3 isosorbide mononitrate 60 mg Tablet Extended Release 24 Hr 60 mg PO DAILY RF: 0 hydrocodone-acetaminophen [[place]] 7.5-325 mg Tablet 1 tab PO QID PRN (Reason: Pain) RF: 0 felodipine 10 mg Tablet Extended Release 24 Hr 10 mg PO DAILY RF: 0 krill oil 500 mg capsule 1,000 mg PO DAILY PRN (Reason: cholesterol) RF: 0 multivitamin Tablet 1 tab PO DAILY RF: 0 torsemide 5 mg tablet 5 mg PO DAILY RF: 0 Discharge Orders: Discharge Order (Routine); Ordered 04/22/21 Ordered By: Clay Lam Referrals: Clay Lam, DO [Physician] - Discharge Diet: Advance as tolerated Discharge Activity: Limit activity as instructed Patient Instructions: Hydrocodone/Acetaminophen (By mouth), Lumbar Spinal Fusion (GEN), Opioid Safety Activity Restrictions/Additional Instructions: Thank you for [facility] for your care! The following is a list of instructions, from your provider, to follow upon your discharge to ensure you have the optimal recovery from your recent injury orsurgery. Follow-up care is a gray part of your treatment and safety. Be sure to make and go to all appointments, and call your doctor if you are having problems. If you do not already have a follow-up appointment made, call Dr. Lam office in the next 1-3 days to make follow up appointment for 1 weeks at [phone]. It is also a good idea to know your test results and keep a list of the medicines you take. Medications will be prescribed for you at your provider's discretion. These medications are to be used as instructed; if they are taken more often that prescribed they will not be refilled early and in most cases will not be refilled at all. > When a refill is needed,you should contact evette greenberg 2-3 business days before your prescription runs out. Medications will NOT be refilled by cushion spring assembler providers after hours! > Many pain medications contain Tylenol (Acetaminophen). Do not consume more than 4,000 mg of Tylenol per day in total with any combination ofmedications. > Pain medications can cause constipation. Please use an over the counter stool softener as directed, while taking pain medications. Consulty our local pharmacist with questions or recommendations on stool softeners. If constipation persists, contact our office or your primary care provider. > While under our care,you are not to receive pain medications or other controlled substances from any other provider unless our office is notified and approves. Any attempts to do so will result in refusal to prescribe any further pain medications and possible dismissal from our practice. ? Keep dressing on until seen in clinic in 1 week ? Showering is permitted, however we ask that you do not take a bath, sit in a whirlpool / Jacuzzi, or go swimming for 1 month. For only the first 2 days after surgery, lt wilt be necessary for you to cover your wound/dressing with plastic and tape to keep it dry. ? Walking is essential for the healing process after surgery. We would like you to slowly advance your walking. This should be done on relatively flat clear ground (inside or out) or can be done on a treadmill. Remember this goal does not have to happen all at once, slowly increase your distance and duration. This can be broken into more more than one walk per day as tolerated. Patients who walk as directed after surgery rarely require Physical Therapy. In the unlikely event this issue arises your provider will direct hospital staff to make the appropriate arrangements. ? No lifting over 5 pounds {a gallon of milk) or bending/twisting until further notice. Each of these activities places an unnecessary amount of stress onto the body and can impede the delicate healing process. > Instead of bending at the waist, keep your back straight and bend at the knees. > Instead of twisting your torso, keep your back straight and turn your entire body with your feet. ? You may sleep in any position which makes you comfortable. Many patients find comfort sleeping in a reclining chair. It is not abnormal to have difficulty sleeping for the first several weeks following your surgery. We recommend trying Benadry! or Tylenol PM as directed to help with your sleeping difficulties. Both medications are over the counter and available withoutprescription. ? NO SMOKING!!! Smoking dramatically increases the probability of developing postoperative wound infections. ? Common complaints after lumbar and/or thoracic spine surgery include, but are not limited to: numbness and/or tingling in the legs, pain around the incision and surrounding tissues, muscle spasms, or stiffness of the middle to low back. Contact our office if these symptoms persist or if an acute change occurs. ? No driving for the first 3-5days, and not while taking narcotics [] until seen at your follow-up appointment and cleared. There are no restrictions for riding on short trips, however if you take a longer trip, arrangements should be made to make regular stops to get out of the vehicle and stretch . ? Swelling is an unfortunate event that will take place with any surgery and is the primary source of your postoperative discomfort. While walking and regular approved activities helps control inflammation, there are additional steps you can take to minimizeswelling. > Place ice over the surgical site and surrounding tissue for twenty minutes, followed by applying a low/medium heat (heating pad) for an additional twenty minutes every 1-2 hours as needed for painrelief. > You may use of over the counter anti-inflammatory medications (Ibuprofen, Motrin, Aleve, Advil, etc) as directed on the package label. These types of medicines wm significantly reduce the amount of discomfort you experience after surgery from swelling. It should be noted that if you have and allergy to any of these medications, or a history of ulcers or kidney disease you should consult you primary care provider prior to starting these medications. Discharge Attestations Time Spent in Discharge Care*: less than 30 min Quality Metrics Clinical Quality Measures During this hospital stay, did patient experience: None Coding Level of Care Code Acute Inag MAREK FROST note Diagnoses Status post lumbar spinal fusion Z98.1
[2021-04-23] MEDS: docusate sodium 100 mg Capsule PO (08:59)
[2021-04-23] MEDS: losartan 50 mg Tablet PO (08:59)
[2021-04-23] MEDS: isosorbide mononitrate ER 60 mg Tablet PO (08:59)
[2021-04-23] MEDS: gabapentin 100 mg Capsule PO (08:59)
[2021-04-23] MEDS: tamsulosin 0.4 mg Capsule PO (08:59)
[2021-04-23] MEDS: hydroCHLOROthiazide 25 mg Tablet PO (08:59)
[2021-04-23] MEDS: cloNIDine 0.1 mg Tablet PO (08:59)
[2021-04-23] MEDS: multivitamin therapeutic Tablet 1 TAB PO (08:59)
[2021-04-23] MEDS: ketorolac 30 mg/mL INJ IVP (09:00)
--- NOTE | 2021-04-23 10:56 | PM.PN ---
Subjective Subjective: Interval history: Seen this AM. Offers no complaints. Still has some back pain secondary to recent surgery. States she is ready to go home. Vitals/I&O/Wt Last Vital Signs Temp 98.5 F 04/23/21 07:49 Pulse 70 04/23/21 07:49 Resp 14 04/23/21 07:49 BP 186/76 04/23/21 08:59 Pulse Ox 93 04/23/21 07:49 04/22/21 04/23/21 04/23/21 22:59 06:59 14:59 Intake Total 60 / 60 240 / 300 1180 / 1180 Output Total 600 / 600 1000 / 1600 350 / 350 Balance -540 / -540 -760 / -1300 830 / 830 Weight last 48 hrs Weight 61.915 kg Weight 62.596 kg Physical Exam Narrative: EXAM NARRATIVE: General: Alert oriented x3. Seen today with at bedside. Patient appearing well. HEENT: Normocephalic, atraumatic, EOMI, breathing room air Cardio: Regular rate rhythm, normal S1-S2, no murmurs rubs gallops, Respiratory: Good bilateral air entry, no wheezes no rhonchi appreciated GI: Abdomen soft, nontender, nondistended, bowel sounds + Extremities: Pulses 2+, no edema, no cyanosis, extremities warm Back not examined. Will defer to surgical attending. Urinary Catheter Management^: Lim: Cath Placed During This Visit: yes Reason for Continuing Indwelling Catheter: Perioperative Use in Selected Surgeries Urinary Catheter Date of Insertion: 04/22/21 Urinary Catheter Time of Insertion: 15:35 A&P Assessment and plan (1) Lumbar stenosis with neurogenic claudication: Status: Acute (2) Lumbar radiculopathy: Status: Acute (3) Coronary artery disease: Status: Acute Qualifiers: Coronary Disease-Associated Artery/Lesion type: [place] artery [place] vs. transplanted heart: [place] heart Associated angina: without angina Qualified Code(s): I25.10 - Atherosclerotic heart disease of [place] coronary artery without angina pectoris Additional A&P Information #L4-L5 lumbar fusion with decompression postop day 1 -Management as per primary attending -Post op labs not reviewed. Patient will need to have them done as outpatient. I will call patient to let her know along with her PCP. Patient left hospital before I checked labs today. #Hypertension, uncontrolled -We will resume most of patient's home medications in morning. -BP stable overnight. #History of hypothyroidism it appears patient is on any medications. Will not restart we will let her follow-up with her primary. Plan is to dc patient today as per surgery. DVT prophylaxis: Heparin subcu Attestations Medical Necessity Statement*: defer to primary team. Time Spent in Patient Care: less than 15 minutes Coding Level of Care Code Acute Director Of Physician Practices for g Fwd Diagnoses Lumbar stenosis with neurogenic claudication M48.062 Lumbar radiculopathy M54.16 Coronary artery disease I25.10 Coronary Disease-Associated Artery/Lesion type: [place] artery [place] vs. transplanted heart: [place] heart Associated angina: without angina
--- NOTE | 2021-04-23 11:10 | PC.CHAP ---
Pastoral Care Encounter/Spiritual Assessment Type of Contact [] Declined sterile supervisor visit [] Patient/Family/Request visit [] Outpatient visit [] Follow-up visit [] Physician referral [] Code/Alert [x] Routine visit [] Staff referral [] Actively dying [] Patient sleeping [] Family support [] [] Out of room [] Palliative care [] [x] Receiving care in room [] Pre-surgical visit [] Trauma [x] Long length of stay [] ICU visit [] Other: Relational/Emotional Strength [x] Patient feels connected with others/family/visitors/staff [] Distress [] Loneliness/isolation [] Abandonment Spirituality of Patient [x] Person of Radha [] Attends Hoahaoism of their Radha [x] Believes in Prayer [] Reads Bible or Hinduism materials [] There are Spiritual issues to be addressed Talent Director Interventions [x] Prayer [x] Active listening [x] Non-anxious presence [x] Spiritual/emotional support [] Crisis/trauma care [x] Spiritual counseling [] Bereavement support [] Provided bereavement packet [] Provided Bible/devotional materials [] Provided toy/stuffed animal, coloring book to patient or family member [] Provided Communion [] Anointing/[place] [] Salvation [x] Completed spiritual assessment [] Other: Impact on Illness or Injury [] Angry [] Fearful [x] Anxious [] Often cries [] Exhaustion [] Unable to work [] Unable to attend presybeterian [] Unable to walk/stand [] Unable to read [] Unable to drive [] Unable to eat/drink [] Unable to sleep [] Unable to be with family [] Patient intubated [] Other: Summary Lumbar, haa a number of health issues has a negative attitude her +1 her is there to help in making deciions in her health Time spent with patient 10 mins
--- NOTE | 2021-04-23 13:17 | PC.NURSE ---
PT HAS DONE WELL FOR ME TODAY. PT HAD SOME COMPLAINTS OF PAIN BUT IT WAS TOLERATED WELL WITH ORDERED PRN MEDICATION. PT DID WELL WITH PT. PTS DRAIN WAS REMOVED PER DR QUINONEZ'S ORDER. PT TOLERATED WELL. NO BLEEDING NOTED. HELLER CATHETER REMOVED THIS MORNING. PT HAS SINCE THEN VOIDED. IV WAS REMOVED. PT TOLERATED WELL. CATHETER TIP INTACT. DISCHARGE INSTRUCTIONS GONE OVER WITH PT. ALL QUESTIONS ANSWERED. PT SAFELY WHEELED OUT BY THIS NURSE.
== END 2021-04-23 13:20 | disposition home or self-care (01) ==
LOC: MEDSURG 17:51
PROVIDERS: Admitting Provider Orthopaedic Surgery; PCP Family Medicine; Visit Provider Orthopaedic Surgery
PROC: (CPT 22612; principal; 2021-04-22 13:40)
DX: M48.062 Spinal stenosis, lumbar region with neurogenic claudication (principal); M54.16 Radiculopathy, lumbar region; I25.10 Atherosclerotic heart disease of native coronary artery without angina pectoris; I13.0 Hypertensive heart and chronic kidney disease with heart failure and stage 1 through stage 4 chronic kidney disease, or unspecified chronic kidney disease; N18.9 Chronic kidney disease, unspecified; I50.9 Heart failure, unspecified; E03.9 Hypothyroidism, unspecified; K21.9 Gastro-esophageal reflux disease without esophagitis; N18.30 Chronic kidney disease, stage 3 unspecified; Z79.899 Other long term (current) drug therapy; Z98.1 Arthrodesis status
CPT/HCPCS: 20939; 22612; 22614; 22840; 61783; 63047; 36416; 51702; 72020; 76000; 82962; 97161; 97530; C1713; G0378; J0690; J1100; J1170; J1644; J1885; J2405; J2704; J3010; J3370; J3490; J7030

== ENCOUNTER 2021-04-25 10:02 | Emergency (ER) | payer MEDICARE, OTHER, SELFPAY ==
[2021-04-25 10:07] VITALS: PULSE 82; RESP 22; TEMP 36.8; O2SAT 94; BMI 24.9
--- NOTE | 2021-04-25 10:28 | CTR_ITS ---
PROCEDURE INFORMATION: Exam: CT Pelvis Without Contrast; Skeletal Exam date and time: 04/25/2021 10:28 AM Age: 81 years old Clinical indication: Other: Hip and low back pain; Prior surgery; Surgery date: 3-7 days post-operative; Additional info: R groin pain TECHNIQUE: Imaging protocol: Computed tomography images of the pelvis without contrast. Exam focused on the skeletal structures. Radiation optimization: All CT scans at this facility use at least one of these dose optimization techniques: automated exposure control; mA and/or kV adjustment per patient size (includes targeted exams where dose is matched to clinical indication); or iterative reconstruction. COMPARISON: CT abdomen pelvis w con* [id number] 07/06/2019 9:06 AM RADIATION DOSE METRICS: Total DLP (mGy-cm): 300.51 FINDINGS: Gallbladder and bile ducts: Cholelithiasis. Stomach and bowel: Prominent sigmoid diverticulosis. No evidence of acute diverticulitis. Reproductive: Hysterectomy. Intraperitoneal space: Small amount of free fluid in the pelvis. Aorta: The aorta and iliac arteries are calcified. The visualized portion of the aorta is not dilated. Bones/joints: Mild degenerative changes are present in the hips with mild joint space narrowing sclerosis and small osteophytes. No recent fracture or other acute bony abnormality is seen in the pelvis and hips. Postsurgical changes are present with recent L4-L5 laminectomy and posterior fusion. Pedicle screws and rods are present. Soft tissues: Unremarkable. CT/CT pelvis wo con [id number] IMPRESSION: 1. Postsurgical changes are present with recent L4-L5 laminectomy and posterior fusion. 2. 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 No acute bony abnormality seen in the pelvis or hips. Radiation Dose CTDIVOL = (mGy): DLP = 300.51 (mGy-cm)
--- NOTE | 2021-04-25 10:28 | USR_ITS ---
PROCEDURE INFORMATION: Exam: US Duplex Right Lower Extremity Veins, Limited Exam date and time: 04/25/2021 10:28 AM Age: 81 years old Clinical indication: Pain; Leg, upper; Right; Additional info: Dvt? TECHNIQUE: Imaging protocol: Real-time Duplex ultrasound of the Right Lower Extremity with 2-D moore scale, color Doppler flow and spectral waveform analysis with image documentation. Limited exam was focused on the right lower extremity veins. COMPARISON: CT pelvis wo con [id number] 04/25/2021 10:56 AM FINDINGS: Right deep veins: Unremarkable. The common femoral, femoral, proximal profunda femoral and popliteal veins are patent without thrombus. Normal Doppler waveforms. Normal compressibility and/or augmentation response. Right superficial veins: Unremarkable. Saphenofemoral junction is patent without thrombus. Soft tissues: Unremarkable. US/[place] [id number] IMPRESSION: No evidence of deep vein thrombosis. Radiation Dose CTDIVOL = (mGy): DLP = (mGy-cm)
--- NOTE | 2021-04-25 10:37 | ED_ITS ---
HPI - General Adult General: Chief complaint: Back Pain/Injury Stated complaint: ABD AND BACK PAIN S/P BACK SURGERY Time Seen by Provider: 04/25/21 10:04 History of Present Illness: HPI narrative: Patient is a 81-year-old female with history of CAD s/p stent x1, recent lumbar fusion on 04/23/2021 who presents the emergency room with complaints of right hip and right thigh pain. Patient says that she has a radiating pain from the back towards the right hip and thigh. Patient denies any fever/chills, abdominal complaints, dysuria, hematuria, polyuria, decreased p.o. intake, chest pain, shortness of breath. Patient says that pain is uncontrolled despite taking oxycodone at home. Patient denies any drainage or worsening pain at the site of the excision. Patient denies any trauma. No history of VTE. Denies any thigh swelling, cyanosis/blueness or leg swelling on the right side. Onset: 2 days ago Duration:2 days Location:home Severity: moderate Review of Systems Narrative: Constitutional: No fever, no chills. HEENT: No vision changes CV: No chest pain, no palpitations PULM: no cough, no dyspnea. GI: No abdominal pain, no N/V/D. : No dysuria, +R pelvic pain MSKEL: No muscle pain, +R leg pain SKIN: No new rashes, no lesions. NEURO: No headache, no focal weakness. HEME: No visible bruises PSYCH: Normal mood PFSH ED PFSH: Medical History Chronic low back pain Coronary artery disease Eye pain GERD (gastroesophageal reflux disease) History of chronic hypertension History of gallstones History of hypothyroidism History of [place] (myocardial infarction) History of pneumonia Malignant hypertension Surgical History History of heart artery stent History of tubal ligation S/P hysterectomy Family History Other CAD (coronary artery disease) Hypertension Social History Smoking and tobacco status: never smoked Second hand smoke exposure: No Alcohol intake: never Household members: spouse Marital status: Current occupational status: retired History of recent travel: No Physical Exam Narrative: EXAM NARRATIVE: Head: Atraumatic Eyes: PERRL, conjunctiva without injection ENT: Mucous membrane moist NECK: Supple, ROM intact LUNGS: LCTAB, no crackles/rhonchi CV: RRR ABDOMEN: Soft, No focal TTP. NO guarding rebound, guarding, rigidity. No CVA tenderness to percussion. Neg Mcnamara/Neg McBurney's point tenderness, no suprabupic tenderness to palpation. EXTREMITY: Normal ROM SKIN: No rash or erythema NEURO: Awake and alert, no focal motor deficits PSYCH: Normal mood and affect BACK: +incision site dry/clean/intact Course Vital Signs: Vital signs: Vital Signs Temperature 98.4 F 04/25/21 12:26 Pulse Rate 91 04/25/21 12:26 Respiratory Rate 20 H 04/25/21 12:26 Blood Pressure 164/101 04/25/21 12:26 Pulse Oximetry 98 04/25/21 12:26 MDM - General Adult MDM Narrative: Medical decision making narrative: 81-year-old female with history of recent lumbar fusion presenting to the emergency room with complaints of right groin and right thigh pain. On exam, patient has no Homans' sign. Patient has no tenderness palpation. Back incision site dry clean and intact. Pelvis did not show any sign of any acute findings. US of the right lower extremity?no signs of DVT. UA negative for UTI. At the present time, patient's pain control 1 mg Dilaudid and 20 mg of ketamine. Patient has no saddle symptoms including lower extremity weakness or numbness. At the present time, do not suspect cord compression or acute infection. Rx menthol and lidocaine patch PRN pain Patient requests for Percocet today as hydrocodone has not been working. I have discontinued patient's hydrocodone instruct patient to only take Percocet from now on and to not take BOTH pain medicines as this can lead to unwanted side effects including respiratory depression and possible . Patient verbalizes understanding and agrees with plan. Rx: percocet Q6hrs PRN pain Disposition: Discharge. Patient counseled regarding diagnostic impression, treatment plan. Patient given ED strict return precautions to return for continuation, worsening, or development of new symptoms. Instructed to f/u w/ Dr. Lam regarding symptoms today. Patient verbalized understanding. Lab Data: Labs: Lab Results 04/25/21 04/25/21 04/25/21 11:16 12:23 12:23 WBC 11.2 10^3/uL H 10 ^3/uL (4.0-10.0) RBC 4.09 10^6/uL L 10 ^6/uL (4.1-5.3) Hgb 13.5 g/dL g/dL (11.5-15.3) Hct 42.8 % % (37.0-47.0) MCV 104.6 fl H fl (81-99) MCH 33.0 pg pg (28.0-34.0) MCHC 31.5 g/dL g/dL (30.0-36.0) RDW 12.4 % % (12.1-15.1) Plt Count 115 10^3/cmm L 10 ^3/cmm (130-400) MPV 12.2 fL H fL (7.4-10.4) Neut % (Auto) 81.8 % % Lymph % (Auto) 8.0 % % [place] % (Auto) 8.4 % % Eos % (Auto) 1.0 % % Baso % (Auto) 0.5 % % Neut # (Auto) 9.17 10^3/uL H 10 ^3/uL (1.8-7.7) Lymph # (Auto) 0.9 10^3/uL 10^3/ uL (0.8-4.8) [place] # (Auto) 0.9 10^3/uL 10^3/ uL (0.2-0.9) Eos # (Auto) 0.1 10^3/uL 10^3/ uL (0.0-0.8) Baso # (Auto) 0.1 10^3/uL 10^3/ uL (0.0-0.1) Nucleated RBC % (a uto) 0 % % Nucleated RBCs # 0.0 /100WBC /100W BC Sodium 135 mmol/L L mmol /L (136-145) Potassium 3.7 mmol/L mmol/L (3.5-5.1) Chloride 94 mmol/L L mmol/ L (98-107) Carbon Dioxide 29 mmol/L mmol/L (22-29) Anion Gap 15.7 (5-19) BUN 16 mg/dL mg/dL (8-23) Creatinine 0.8 mg/dL mg/dL (0.5-0.9) GFR Calculation Not Reportable Glucose 126 mg/dL H mg/dL (65-115) Calculated Osmolal ity 283 mOsm/kg L mOs m/kg (285-295) Calcium 8.5 mg/dL mg/dL (8.5-10.5) Total Bilirubin 0.7 mg/dL mg/dL (0.15-1.2) AST 27 U/L U/L (0-32) ALT < 5 U/L U/L (0-33) Alkaline Phosphata se 77 IU/L IU/L (35-105) Total Protein 6.7 g/dL g/dL (6.6-8.7) Albumin 3.3 g/dL L g/dL (3.5-5.2) Globulin 3.4 g/dL g/dL (1.3-4.6) Lipase 94 U/L H U/L (13-60) Urine Color Yellow (Yellow) Urine Appearance Clear (CLEAR) Urine pH 7 (5-7) Ur Specific Gravit y 1.005 (1.005-1.030) Urine Protein Neg (Negative) Urine Glucose (UA) Norm (Normal) Urine Ketones Negative (Negative) Urine Blood Neg (Negative) Urine Nitrate Negative (Negative) Urine Bilirubin Neg (Negative) Urine Urobilinogen Norm mg/dL mg/dL (Negative) Ur Leukocyte Marianela ase Negative (Negative) Imaging Data^: Other Imaging: Radiologist's impression: [address] [id number] ReportSigned Patient: Kati Chris #: [id number]: 1940 cct#:[id number]/Sex: 81 / FADM Date: 04/25/21Loc: ERRoom/Bed:Attending Dr: Ordering Provider/Ordering MD: Jass Mccoy MD Date of Service: 04/25/21 Procedure(s): [place] [id number] Accession Number(s): [id number] Report Number: [id number] PROCEDURE INFORMATION: Exam: US Duplex Right Lower Extremity Veins, Limited Exam date and time: 04/25/2021 10:28 AM Age: 81 years old Clinical indication: Pain; Leg, upper; Right; Additional info: Dvt? TECHNIQUE: Imaging protocol: Real-time Duplex ultrasound of the Right Lower Extremity with 2-D moore scale, color Doppler flow and spectral waveform analysis with image documentation. Limited exam was focused on the right lower extremity veins. COMPARISON: CT pelvis con [id number] 04/25/2021 10:56 AM FINDINGS: Right deep veins: Unremarkable. The common femoral, femoral, proximal profunda femoral and popliteal veins are patent without thrombus. Normal Doppler waveforms. Normal compressibility and/or augmentation response. Right superficial veins: Unremarkable. Saphenofemoral junction is patent without thrombus. Soft tissues: Unremarkable. US/[place] [id number] IMPRESSION: No evidence of deep vein thrombosis. Radiation Dose CTDIVOL = (mGy): DLP = (mGy-cm) Dictated By:Mikal Vidal By:Mikal Vidal Date/Time:04/25/21 1209DD/ 1028 [facility] IndustriesLead-[facility] [place] [id number] Scan ReportSigned Patient: Kati Chris #: [id number]: [id number]#:[id number]/Sex: 81 / FADM Date: 04/25/21Loc: ERRoom/Bed:Attending Dr: Ordering Provider/Ordering MD: Jass Mccoy MD Date of Service: 04/25/21 Procedure(s): CT pelvis [place] [address] Accession Number(s): [id number] Report Number: [id number] PROCEDURE INFORMATION: Exam: CT Pelvis Without Contrast; Skeletal Exam date and time: 04/25/2021 10:28 AM Age: 81 years old Clinical indication: Other: Hip and low back pain; Prior surgery; Surgery date: 3-7 days post-operative; Additional info: R groin pain TECHNIQUE: Imaging protocol: Computed tomography images of the pelvis without contrast. Exam focused on the skeletal structures. Radiation optimization: All CT scans at this facility use at least one of these dose optimization techniques: automated exposure control; mA and/or kV adjustment per patient size (includes targeted exams where dose is matched to clinical indication); or iterative reconstruction. COMPARISON: CT abdomen pelvis w con* [id number] 07/06/2019 9:06 AM RADIATION DOSE METRICS: Total DLP (mGy-cm): 300.51 FINDINGS: Gallbladder and bile ducts: Cholelithiasis. Stomach and bowel: Prominent sigmoid diverticulosis. No evidence of acute diverticulitis. Reproductive: Hysterectomy. Intraperitoneal space: Small amount of free fluid in the pelvis. Aorta: The aorta and iliac arteries are calcified. The visualized portion of the aorta is not dilated. Bones/joints: Mild degenerative changes are present in the hips with mild joint space narrowing sclerosis and small osteophytes. No recent fracture or other acute bony abnormality is seen in the pelvis and hips. Postsurgical changes are present with recent L4-L5 laminectomy and posterior fusion. Pedicle screws and rods are present. Soft tissues: Unremarkable. CT/CT pelvis wo con [id number] IMPRESSION: 1. Postsurgical changes are present with recent L4-L5 laminectomy and posterior fusion. 2. 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 No acute bony abnormality seen in the pelvis or hips. Radiation Dose CTDIVOL = (mGy): DLP = 300.51 (mGy-cm) Dictated By:Mikal Vidal By:Mikal Vidal Date/Time:04/25/21 1145DD/ 1028 Discharge Plan Discharge Patient Disposition: Home Clinical Impression: Groin pain, History of back surgery Condition: Stable Prescriptions: New lidocaine 5 % adhesive patch,medicated 1 patch topical DAILY PRN (Reason: pain) 10 Days Qty: 10 RF: 0 Discontinued hydrocodone-acetaminophen [[place]] 7.5-325 mg Tablet 1 tab PO QID PRN (Reason: Pain) RF: 0 No Action magnesium 250 mg tablet 250 mg PO DAILY RF: 0 clonidine HCl 0.1 mg tablet 0.1 mg PO DAILY RF: 0 tamsulosin 0.4 mg capsule 0.4 mg PO BID Qty: 30 RF: 2 gabapentin 100 mg capsule 100 mg PO BID Qty: 60 RF: 0 hydrochlorothiazide 25 mg tablet 25 mg PO DAILY Qty: 30 RF: 3 valsartan 160 mg tablet 160 mg PO BID Qty: 60 RF: 3 isosorbide mononitrate 60 mg Tablet Extended Release 24 Hr 60 mg PO DAILY RF: 0 felodipine 10 mg Tablet Extended Release 24 Hr 5 mg PO DAILY MDD see pharmacy comment RF: 0 krill oil 500 mg capsule 1,000 mg PO DAILY RF: 0 multivitamin Tablet 1 tab PO DAILY RF: 0 torsemide 20 mg tablet 10 mg PO DAILY RF: 0 carvedilol 3.125 mg tablet 3.125 mg PO BID RF: 0 potassium chloride 20 mEq Tablet Extended Release 20 meq PO DAILY MDD see pharmacy comment RF: 0 Percocet 10-325 mg tablet 1 - 2 tab PO Q4H PRN (Reason: pain) 7 Days Qty: 40 RF: 0 Discharge Orders: Discharge ED (Routine); Ordered 05/02/21 Ordered By: Jass Mccoy Referrals: Doe Bui MD [Primary Care Provider] - Discharge Diet: Advance as tolerated Discharge Activity: Resume usual activity Patient Instructions: Opioid Safety Activity Restrictions/Additional Instructions: Follow-up with Dr. Lam for further evaluation of your pain today. Come back to the emergency room you have worsening back pain or any drainage from the incision site, fever/chills, or any new or concerning complaints. Coding Level of Care Code ED Slot Operations Director for Lawrence Beugm
[2021-04-25 10:49] VITALS: RESP 18
[2021-04-25] MEDS: HYDROmorphone 1 mg/mL INJ 1 mL IVP (10:49)
[2021-04-25] MEDS: acetaminophen 500 mg Tablet 1000 MG PO (11:30)
[2021-04-25] MEDS: sodium chloride 0.9% 250 ML IV (11:30)
[2021-04-25 11:38] VITALS: BP 183/72; PULSE 72; RESP 16; O2SAT 98
[2021-04-25 12:14] LABS: Add Urine Microscopic? NO; Charge for UA Resulting for Rev
[2021-04-25 12:26] VITALS: BP 164/101; PULSE 91; RESP 20; TEMP 36.9; O2SAT 98
[2021-04-25 12:30] LABS: Bilirubin Urine Neg (Negative); Blood Urine Neg (Negative); Glucose Urine UA Norm (Normal); Ketones Urine Negative (Negative); Leukocyte Esterase Urine Negative (Negative); Nitrate Urine Negative (Negative); Protein Urine Neg (Negative); Specific Gravity, Urine 1.005 (1.005-1.030); Urine Appearance Clear (CLEAR); Urine Color Yellow (Yellow); Urobilinogen Urine Norm (Negative); pH Urine 7 (5-7)
[2021-04-25 12:41] LABS: Basophils # 0.1 10^3/uL (0.0-0.1); Basophils % 0.5 %; Eosinophils # 0.1 10^3/uL (0.0-0.8); Hematocrit 42.8 % (37.0-47.0); Hemoglobin 13.5 g/dL (11.5-15.3); Lymphocytes # 0.9 10^3/uL (0.8-4.8); Mean Corpuscular HGB Conc 31.5 g/dL (30.0-36.0); Mean Corpuscular Volume 104.6 fl (81-99); Mean Platelet Volume 12.2 fL (7.4-10.4); Monocytes # 0.9 10^3/uL (0.2-0.9); Monocytes % 8.4 %; Neutrophils # 9.17 10^3/uL (1.8-7.7); Neutrophils % 81.8 %; Nucleated Red Blood Cells % 0 %; Platelet Count 115 10^3/cmm (130-400); Red Blood Count 4.09 10^6/uL (4.1-5.3); Red Cell Distribution Width 12.4 % (12.1-15.1); White Blood Count 11.2 10^3/uL (4.0-10.0)
[2021-04-25 12:58] LABS: Alanine Aminotransferase < 5 U/L (0-33); Albumin Level 3.3 g/dL (3.5-5.2); Alkaline Phosphatase 77 IU/L (35-105); Blood Urea Nitrogen 16 mg/dL (8-23); Calcium 8.5 mg/dL (8.5-10.5); Carbon Dioxide 29 mmol/L (22-29); Chloride 94 mmol/L (98-107); Globulin 3.4 g/dL (1.3-4.6); Glucose 126 mg/dL (65-115); Lipase 94 U/L (13-60); Osmolality Calculated 283 mOsm/kg (285-295); Sodium 135 mmol/L (136-145); Total Bilirubin 0.7 mg/dL (0.15-1.2); Total Protein 6.7 g/dL (6.6-8.7)
[2021-04-25 13:04] LABS: Anion Gap 15.7 (5-19); Potassium 3.7 mmol/L (3.5-5.1)
[2021-04-25 13:05] LABS: Aspartate Amino Transferase 27 U/L (0-32)
== END 2021-04-25 14:18 | disposition home or self-care (01) ==
PROVIDERS: Emergency Provider Emergency Medicine; PCP Family Medicine
DX: M54.50 Low back pain, unspecified (principal); R10.30 Lower abdominal pain, unspecified; Z98.890 Other specified postprocedural states; Z98.1 Arthrodesis status; M79.651 Pain in right thigh; R10.31 Right lower quadrant pain; I25.10 Atherosclerotic heart disease of native coronary artery without angina pectoris; I10 Essential (primary) hypertension; I25.2 Old myocardial infarction; M19.90 Unspecified osteoarthritis, unspecified site
CPT/HCPCS: 72192; 80053; 81003; 83690; 85025; 93971; 96361; 96374; 96375; 99283; J1170; J3490; J7050

== ENCOUNTER 2021-04-26 06:39 | Inpatient (IN) | payer MEDICARE, OTHER, SELFPAY ==
[2021-04-26] VITALS (15 sets, daily range): BP systolic 158–192; BP diastolic 66–111; PULSE 64–86; RESP 12–22; TEMP 36.5–37.4; O2SAT 88–98; BMI 24.9
--- NOTE | 2021-04-26 07:12 | ED_ITS ---
HPI - Back Pain/Injury General: Chief Complaint: Back Pain/Injury Stated Complaint: back pain Time Seen by Provider: 04/26/21 06:44 History of Present Illness: HPI Narrative: Patient arrives via EMS with complaint of back pain and hip pain postsurgical. Patient was in the ER yesterday received prescription for Percocet and received Dilaudid injection. Patient checked out AMA yesterday due to to her displeasure with not be admitted for pain control. Patient states the Percocet did help some yesterday but she says it hurts for her to get up and move around. Patient did ambulate out of the ER yesterday. Patient did quit taking her Neurontin prior to surgery. Patient has no other complaints or problems. MD elicited complaint: back pain Pertinent past history: back surgery Onset (ago): day(s) Timing: constant Severity: similar to previous episodes Similar Symptoms Previously: Yes Quality: sharp and aching Location: right lower back Radiation: groin Exacerbating factors: movement Relieving factors: immobilization Associated symptoms: Reports no associated symptoms; Deny abdominal pain, chills, fever(s), nausea or vomiting Treatments prior to arrival: prescription analgesics Review of Systems Const: Denies: fever(s), chills or body aches Eyes: Denies: change in vision or blurry vision ENMT: Denies: throat pain or nasal congestion Card: Denies: chest pain or dyspnea on exertion Resp: Denies: dyspnea, productive cough or non-productive cough GI: Denies: abdominal pain, nausea or vomiting Musc: Reports: back pain (Pain radiates into the right groin area right hip.); Denies: extremity pain Skin/Breast: Denies: rash Neuro: Denies: headache(s) Psych: Denies: anxiety or depression Miller/Lymph: Denies: easy bruising PFSH ED PFSH: Medical History (Updated 04/25/21 @ 10:40 by Jass Mccoy MD) Chronic low back pain Coronary artery disease Eye pain GERD (gastroesophageal reflux disease) History of chronic hypertension History of gallstones History of hypothyroidism History of [place] (myocardial infarction) History of pneumonia Malignant hypertension Surgical History (Updated 04/25/21 @ 10:40 by Jass Mccoy MD) History of heart artery stent History of tubal ligation S/P hysterectomy Family History Other CAD (coronary artery disease) Hypertension Social History Smoking and tobacco status: never smoked Second hand smoke exposure: No Alcohol intake: never Household members: spouse Marital status: Current occupational status: retired History of recent travel: No Physical Exam Const: COMMON NORMALS: no acute distress, average body habitus and patient oriented x3 HENMT: COMMON NORMALS: normocephalic HEAD & SCALP: normal to inspection and normocephalic FACE & SINUS: normal facial exam Eye: COMMON NORMALS: conjunctivae normal GENERAL EYE: appearance normal, both eyes and all related structures CONJUNCTIVA: Yes conjunctivae normal Neck/C-Spine: COMMON NORMALS: no JVD Chest: COMMONS NORMALS: normal inspection of the chest Resp: COMMON NORMALS: normal respiratory effort and clear to auscultation bilaterally AUSCULTATION: clear to auscultation bilaterally Cardio: COMMON NORMALS: no JVD, regular rate and regular rhythm RATE: regular rate RHYTHM: regular rhythm GI: COMMON NORMALS: Normal to inspection, nondistended, normoactive bowel sounds present : COMMON NORMALS: Yes no CVA tenderness BLADDER/KIDNEY EXAM: Yes no CVA tenderness Back/Pelvis: COMMON NORMALS: no CVA tenderness and no thoracic nor lumbar tenderness LUMBAR SPINE/LOWER BACK: Yes pain with ROM and Yes straight leg raise positive right OTHER: Neurovascular status distally is intact. Patient does have good sensation both bilateral lower extremities. Patient has pain hip area with range of motion. Extremity: COMMON NORMALS: normal to inspection and full ROM Neuro: COMMON NORMALS: patient oriented x3 Course Vital Signs: Vital signs: Vital Signs Temperature 97.7 F 04/26/21 06:39 Pulse Rate 71 04/26/21 09:00 Respiratory Rate 16 04/26/21 07:49 Blood Pressure 181/74 04/26/21 09:00 Pulse Oximetry 97 04/26/21 09:00 MDM - Back Pain/Injury MDM Narrative: Medical decision making narrative: Spoke with Dr. Lam's nurse at [address] Lam is scrubbed in for surgery presently and will be returning our call. I spoke with Dr. Lam and he agreed except patient for admission and consult hospitalist. Discharge Plan Discharge Prescriptions: No Action magnesium 250 mg tablet 250 mg PO DAILY RF: 0 cholecalciferol (vitamin D3) 1,250 mcg (50,000 unit) capsule 1,250 mcg PO DAILY PRN (Reason: Hypocalcemia) RF: 0 clonidine HCl 0.1 mg tablet 0.1 mg PO DAILY RF: 0 tamsulosin 0.4 mg capsule 0.4 mg PO BID Qty: 30 RF: 2 gabapentin 100 mg capsule 100 mg PO BID Qty: 60 RF: 0 hydrochlorothiazide 25 mg tablet 25 mg PO DAILY Qty: 30 RF: 3 valsartan 160 mg tablet 160 mg PO BID Qty: 60 RF: 3 isosorbide mononitrate 60 mg Tablet Extended Release 24 Hr 60 mg PO DAILY RF: 0 felodipine 10 mg Tablet Extended Release 24 Hr 10 mg PO DAILY RF: 0 krill oil 500 mg capsule 1,000 mg PO DAILY PRN (Reason: cholesterol) RF: 0 multivitamin Tablet 1 tab PO DAILY RF: 0 torsemide 5 mg tablet 5 mg PO DAILY RF: 0 hydrocodone-acetaminophen 10-325 mg tablet 1 - 2 tab PO Q4H PRN (Reason: pain) 7 Days Qty: 40 RF: 0 Biofreeze (menthol) 5 % gel 1 ea topical TID PRN (Reason: pain) 5 Days Qty: 473 RF: 0 lidocaine 5 % adhesive patch,medicated 1 patch topical DAILY PRN (Reason: pain) 10 Days Qty: 10 RF: 0 Percocet 5-325 mg tablet 1 tab PO Q6H PRN (Reason: pain) 3 Days Qty: 12 RF: 0 Coding Level of Care Code ED Radiology Equipment Servicer for Chg Fwd Exam Comprehensive
[2021-04-26] MEDS: gabapentin 300 mg Capsule PO ×2 (07:42→20:34)
[2021-04-26] MEDS: ketorolac 30 mg/mL INJ IVP (07:49)
[2021-04-26] MEDS: HYDROmorphone 1 mg/mL INJ 1 mL 0.2 MG SUBCUT ×2 (07:49→17:47)
--- NOTE | 2021-04-26 08:20 | PC.NURSE ---
provider at bedside will attempt to reassess pain later.
[2021-04-26 09:51] LABS: Add Urine Microscopic? YES; Bilirubin Urine Neg (Negative); Blood Urine Neg (Negative); Glucose Urine UA Norm (Normal); Ketones Urine Negative (Negative); Leukocyte Esterase Urine Negative (Negative); Nitrate Urine Negative (Negative); Protein Urine 1+ (Negative); Urine Appearance Clear (CLEAR); Urine Color Yellow (Yellow); Urobilinogen Urine Norm (Negative); pH Urine 5 (5-7)
[2021-04-26 09:53] LABS: Bacteria Urine TRACE /hpf; Mucus Urine TRACE /hpf; Squamous Epithelial Cell Urine 0-4 /hpf (0-5)
[2021-04-26 09:54] LABS: Add Urine Culture? No
--- NOTE | 2021-04-26 10:04 | PC.NURSE ---
While at bedside pt IV tape reinforced per pt request. pt is in nad. pt denies any further needs.
--- NOTE | 2021-04-26 13:29 | PC.NURSE ---
while at bedside pt assisted with positioning in bed. pt is in nad.
--- NOTE | 2021-04-26 14:24 | PC.NURSE ---
while at bedside pt is resting quietly in bed pt is aroused with moderate physical stimuli.
--- NOTE | 2021-04-26 16:23 | PM.CONSULT ---
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 Back incision site was dry and clean, intact. She had no findings to suspect cord compression or acute infection. She was given additional pain treatment measures including menthol, lidocaine patch, Percocet. Additionally instructed to follow-up with primary provider and orthopedics. States that she has been taking the pain medications, but pain has been persistent. In addition states she has not had a bowel movement since the day of surgery. She denies fever chills, other systemic symptoms. She has been having difficulty walking due to the severity of the pain, although if she went through the pain she would be able to walk. She has no trouble moving her legs. Has no numbness. She has chronic mild urinary incontinence which has not changed. No fecal incontinence. She is being admitted by orthopedic service for additional assessment and management. Hospitalist consult is requested due to chronic conditions that include CAD, prior stenting, hypertension. Review of Systems Const: Denies: fever(s), chills, body aches or malaise Eyes: Denies: change in vision or eye redness ENMT: Denies: throat pain, oral sores or ear or mastoid pain Card: Denies: chest pain, edema, pre-syncope or dyspnea on exertion Resp: Denies: dyspnea, productive cough, change in phlegm color or hemoptysis GI: Reports: constipation; Denies: abdominal pain, nausea, vomiting, diarrhea, hematochezia or melena : Denies: flank pain, urinary frequency or hematuria Musc: Reports: back pain; Denies: joint swelling or joint redness Skin/Breast: Denies: rash, sores or new lesions Neuro: Reports: difficulty walking; Denies: headache(s), numbness in extremities, weakness in extremities, dizziness, confusion or seizure-like activity Endo: Denies: polyuria or polydipsia Miller/Lymph: Denies: easy bleeding or purpura All/Imm: Denies: urticaria, throat swelling or tongue swelling Meds/Allergies Home Medications and Allergies Home Medications Medication Instructions Recorded Confirmed Last Taken Type felodipine 5 mg PO DAILY MDD see pharmacy 07/04/19 04/26/21 04/25/21 History comment isosorbide mononitrate 60 mg PO DAILY 07/04/19 04/26/21 04/25/21 History krill oil 500 mg capsule 1,000 mg PO DAILY 08/26/20 04/26/21 04/18/21 History multivitamin 1 tab PO DAILY 11/04/20 04/26/21 04/25/21 History magnesium 250 mg tablet 250 mg PO DAILY 11/18/20 04/26/21 04/25/21 History gabapentin 100 mg capsule 100 mg PO BID #60 cap 02/12/21 04/26/21 04/25/21 Rx hydrochlorothiazide 25 mg tablet 25 mg PO DAILY #30 tab 02/17/21 04/26/21 04/25/21 Rx clonidine HCl 0.1 mg tablet 0.1 mg PO DAILY tab 02/23/21 04/26/21 04/25/21 History tamsulosin 0.4 mg capsule 0.4 mg PO BID #30 cap 02/23/21 04/26/21 04/25/21 Rx valsartan 160 mg tablet 160 mg PO BID #60 tab 02/27/21 04/26/21 04/25/21 Rx lidocaine 1 patch TOPICAL DAILY PRN 10 Days 04/25/21 04/26/21 Unknown Rx #10 ea menthol [Biofreeze (menthol)] 1 ea TOPICAL TID PRN 5 Days #473 ml 04/25/21 04/26/21 Unknown Rx oxycodone-acetaminophen [Percocet] 1 tab PO Q6H PRN 3 Days #12 tab 04/25/21 04/26/21 04/25/21 Rx carvedilol 3.125 mg PO BID 04/26/21 04/26/21 04/25/21 History potassium chloride 20 meq PO DAILY MDD see pharmacy 04/26/21 04/26/2104/25/21 History comment torsemide 10 mg PO DAILY 04/26/21 04/26/21 04/25/21 History Allergies Allergy/AdvReac Type Severity Reaction Status Date / Time prazosin Allergy Severe ALGY-Difficulty Verified 04/25/21 10:07 Breathing hydralazine Allergy Unknown Verified 04/25/21 10:07 PFSH Acute PFSH: Medical History Chronic low back pain Coronary artery disease Eye pain GERD (gastroesophageal reflux disease) History of chronic hypertension History of gallstones History of hypothyroidism History of [place] (myocardial infarction) History of pneumonia Malignant hypertension Surgical History History of heart artery stent History of tubal ligation S/P hysterectomy Family History Other CAD (coronary artery disease) Hypertension Social History Smoking and tobacco status: never smoked Second hand smoke exposure: No Alcohol intake: never Household members: spouse Marital status: Current occupational status: retired History of recent travel: No Vitals/I&O/Wt Last Vital Signs Temp 97.7 F 04/26/21 06:39 Pulse 65 04/26/21 13:00 Resp 12 04/26/21 11:30 BP 158/73 04/26/21 12:30 Pulse Ox 95 04/26/21 13:00 Weight last 48 hrs Weight 59.874 kg Physical Exam Narrative: EXAM NARRATIVE: Wearing a nightgown. Const: COMMON NORMALS: no acute distress and patient oriented x3 GENERAL APPEARANCE: not comfortable (Due to back pain.) HENMT: COMMON NORMALS: oropharynx normal Neck/C-Spine: COMMON NORMALS: no JVD Resp: COMMON NORMALS: normal respiratory effort and clear to auscultation bilaterally AUSCULTATION: clear to auscultation bilaterally Cardio: COMMON NORMALS: no JVD, regular rhythm, S1 normal heart sound present, S2 normal heart sound present and No murmurs present (Cardio) RHYTHM: regular rhythm HEART SOUNDS: S1 normal heart sound present and S2 normal heart sound present GI: COMMON NORMALS: Normal to inspection, nondistended, normoactive bowel sounds present, Soft to palpation and non-tender PALPATION: Yes Soft to palpation Extremity: COMMON NORMALS: no joint enlargement and no pedal edema Neuro: COMMON NORMALS: patient oriented x3 and moves all extremities OTHER: Wiggle her toes. Leg movement limited by lower back pain. Urinary Catheter Management^: Lim: Cath Placed During This Visit: yes Urinary Catheter Date of Insertion: 04/26/21 Urinary Catheter Time of Insertion: 09:25 A&P Assessment and plan (1) Status post lumbar spinal fusion: Persistent pain, returns to ER for second time after was here yesterday. Work-up included CT pelvis and right lower extremity duplex study. Additional assessment management as per orthospine. Continue pain control. Would avoid NSAIDs given recent DAXA. Currently started on Dilaudid in ER. Needs something for constipation. Subsequently PT, OT. Status: Acute (2) Constipation: Likely with contribution from opioids, possibly pain as well. Needs bowel regimen. Status: Acute Additional A&P Information Recent acute kidney injury: Resolved Recent hyponatremia: Improved CAD: Asymptomatic. Denies any chest pain or pressure, no dyspnea exertion, GARCIA, lower extremity edema. Noted some mild troponin elevation during prior admission, without peak, not suggestive of [place]. Formerly on aspirin, depending on whether needs any additional procedures, if safe to do so would resume aspirin 81 mg daily. Would benefit from addition of statin if no contraindication, not sure why this has not been previously started. Continue carvedilol. Imdur. Valsartan. HTN: For now continue clonidine, carvedilol, calcium channel candice, given recent hyponatremia for now hold off HCTZ, given recent DAXA, question of whether she may need surgery, hold off valsartan for now, but may be restarted if no procedures planned and if blood pressure remains high. Pain control. History of hypothyroidism: During hospitalization recommendations were to follow-up with primary provider. Consult Attestations Medical Necessity Statement: Place in observation for assessment and treatment as per orthospine surgery due to persistent lower back pain following recent fusion surgery having not responded to outpatient management. Coding Level of Care Code Acute [employer] Consultant for Chg Fwd Diagnoses Status post lumbar spinal fusion Z98.1 Constipation K59.00
--- NOTE | 2021-04-26 16:51 | PC.NURSE ---
ATTEMPTED REPORT NURSE UNAVAILABLE.
--- NOTE | 2021-04-26 17:47 | PC.NURSE ---
PT ASSISTED WITH POSITIONING PER PT REQUEST.
[2021-04-26] MEDS: morphine 4 mg/mL SDV 1 mL IVP (20:30)
[2021-04-26] MEDS: carvedilol 3.125 mg Tablet PO (20:33)
[2021-04-26] MEDS: tamsulosin 0.4 mg Capsule PO (20:33)
[2021-04-26] MEDS: heparin 5,000 unit/mL INJ 1 mL 5000 UNIT SUBCUT (20:34)
[2021-04-26] MEDS: amlodipine 5 mg Tablet PO (23:39)
[2021-04-27] VITALS (13 sets, daily range): BP systolic 128–168; BP diastolic 52–76; PULSE 53–63; RESP 16–18; TEMP 36.4–37.2; O2SAT 93–97
[2021-04-27] MEDS: heparin 5,000 unit/mL INJ 1 mL 5000 UNIT SUBCUT ×3 (03:45→18:00)
[2021-04-27] MEDS: morphine 4 mg/mL SDV 1 mL IVP ×5 (03:45→23:15)
[2021-04-27 05:30] LABS: Basophils # 0.1 10^3/uL (0.0-0.1); Basophils % 0.8 %; Eosinophils # 0.4 10^3/uL (0.0-0.8); Eosinophils % 4.6 %; Hematocrit 30.9 % (37.0-47.0); Hemoglobin 9.7 g/dL (11.5-15.3); Lymphocytes # 1.3 10^3/uL (0.8-4.8); Lymphocytes % 15.1 %; Mean Corpuscular HGB Conc 31.4 g/dL (30.0-36.0); Mean Corpuscular Hemoglobin 32.3 pg (28.0-34.0); Mean Platelet Volume 12.5 fL (7.4-10.4); Monocytes # 0.9 10^3/uL (0.2-0.9); Monocytes % 11.1 %; Neutrophils # 5.78 10^3/uL (1.8-7.7); Nucleated Red Blood Cells % 0 %; Platelet Count 230 10^3/cmm (130-400); Red Cell Distribution Width 12.2 % (12.1-15.1); White Blood Count 8.5 10^3/uL (4.0-10.0)
[2021-04-27 05:49] LABS: Blood Urea Nitrogen 14 mg/dL (8-23); Calcium 8.2 mg/dL (8.5-10.5); Carbon Dioxide 30 mmol/L (22-29); Chloride 95 mmol/L (98-107); Glucose 90 mg/dL (65-115); Osmolality Calculated 278 mOsm/kg (285-295); Sodium 134 mmol/L (136-145)
[2021-04-27 05:54] LABS: Anion Gap 12.6 (5-19); Potassium 3.6 mmol/L (3.5-5.1)
--- NOTE | 2021-04-27 06:59 | P.HP_ITS ---
Documented by User: [email or web address] Burton 04/27/21 07:05 Providers/Chief Complaint Admitting Physician: Clay Lam DO Primary Care Provider: Doe Bui MD Chief Complaint: back pain History of Present Illness Kati Chris is a 81 year old female who underwent a lumbar fusion decompression on 04/22/2021. She has been at home with inability to walk due to her back and right hip pain. She reports more right hip and groin pain. She denies a fall. She states anytime she tries to stand it affects her groin. She denies any injuries at home. States the pain is been unbearable she presented to [facility] emergency room where she demanded to be admitted due to pain control. She denies any fever chills or drainage from her incisional site. All of her pain seems to be localized to the right groin and hip region. She denies any pain down into her legs. She is adamant that she cannot walk because of her right hip pain. Review of Systems Const: Denies: fever(s), chills, body aches or malaise Eyes: Denies: change in vision, blurry vision or eye redness ENMT: Denies: throat pain, oral sores, ear or mastoid pain or nasal congestion Card: Denies: chest pain, edema, pre-syncope or dyspnea on exertion Resp: Denies: dyspnea, productive cough, non-productive cough, change in phlegm color or hemoptysis GI: Reports: constipation; Denies: abdominal pain, nausea, vomiting, diarrhea, hematochezia or melena : Denies: flank pain, urinary frequency or hematuria Musc: Reports: back pain; Denies: extremity pain, joint swelling or joint redness Skin/Breast: Denies: rash, sores or new lesions Neuro: Reports: difficulty walking; Denies: headache(s), numbness in extremities, weakness in extremities, dizziness, confusion or seizure-like activity Psych: Denies: anxiety or depression Endo: Denies: polyuria or polydipsia Miller/Lymph: Denies: easy bruising, easy bleeding or purpura All/Imm: Denies: urticaria, throat swelling or tongue swelling Medications/Allergies Home Medications Medication Instructions Recorded Confirmed Last Taken Type felodipine 5 mg PO DAILY MDD see pharmacy 01/02/1304/26/21 04/25/21 History comment isosorbide mononitrate 60 mg PO DAILY 07/04/19 04/26/21 04/25/21 History krill oil 500 mg capsule 1,000 mg PO DAILY 08/26/20 04/26/21 04/18/21 History multivitamin 1 tab PO DAILY 11/04/20 04/26/21 04/25/21 History magnesium 250 mg tablet 250 mg PO DAILY 11/18/20 04/26/21 04/25/21 History gabapentin 100 mg capsule 100 mg PO BID #60 cap 02/12/21 04/26/21 04/25/21 Rx hydrochlorothiazide 25 mg tablet 25 mg PO DAILY #30 tab 02/17/21 04/26/21 04/25/21 Rx clonidine HCl 0.1 mg tablet 0.1 mg PO DAILY tab 02/23/21 04/26/21 04/25/21 History tamsulosin 0.4 mg capsule 0.4 mg PO BID #30 cap 02/23/21 04/26/21 04/25/21 Rx valsartan 160 mg tablet 160 mg PO BID #60 tab 02/27/21 04/26/21 04/25/21 Rx lidocaine 1 patch TOPICAL DAILY PRN 10 Days 04/25/21 04/26/21 Unknown Rx #10 ea menthol [Biofreeze (menthol)] 1 ea TOPICAL TID PRN 5 Days #473 ml 04/25/21 04/26/21 Unknown Rx oxycodone-acetaminophen [Percocet] 1 tab PO Q6H PRN 3 Days #12 tab 04/25/21 04/26/21 04/25/21 Rx carvedilol 3.125 mg PO BID 04/26/21 04/26/21 04/25/21 History potassium chloride 20 meq PO DAILY MDD see pharmacy 04/26/21 04/26/21 04/25/21 History comment torsemide 10 mg PO DAILY 04/26/21 04/26/21 04/25/21 History Allergies Allergy/AdvReac Type Severity Reaction Status Date / Time prazosin Allergy Severe ALGY-Difficulty Verified 04/25/21 10:07 Breathing hydralazine Allergy Unknown Verified 04/25/21 10:07 PFSH Acute PFSH: Medical History Chronic low back pain Coronary artery disease Eye pain GERD (gastroesophageal reflux disease) History of chronic hypertension History of gallstones History of hypothyroidism History of [place] (myocardial infarction) History of pneumonia Malignant hypertension Surgical History History of heart artery stent History of tubal ligation S/P hysterectomy Family History Other CAD (coronary artery disease) Hypertension Social History Smoking and tobacco status: never smoked Second hand smoke exposure: No Alcohol intake: never Household members: spouse Marital status: Current occupational status: retired History of recent travel: No Vitals/I&O/Wt Last Vital Signs Temp 98.9 F 04/27/21 03:35 Pulse 63 04/27/21 03:35 Resp 16 04/27/21 03:45 BP 168/76 04/27/21 03:35 Pulse Ox 95 04/27/21 03:51 04/26/21 04/26/21 04/27/21 14:59 22:59 06:59 Intake Total 240 / 240 Output Total 650 / 650 Balance -410 / -410 Weight last 48 hrs Weight 151 lb 3.2 oz Weight 132 lb Weight 132 lb Physical Exam Narrative: EXAM NARRATIVE: She is alert oriented x3 good general appearance moderate acute distress. Her incisions healing nicely. She has palpable pain over the right hip region diffusely. Mild logroll on the right negative on the left. Normal sensation light touch down both lower extremities. Skin is clear warm feet are warm good cap refill calves are supple no medial thigh tenderness. She is full range of motion of the left lower extremity at the hip knee and ankle. Full range of motion both upper extremities shoulders elbows and wrists. HENMT: COMMON NORMALS: normocephalic Resp: COMMON NORMALS: normal respiratory effort Cardio: COMMON NORMALS: regular rate and regular rhythm GI: COMMON NORMALS: Soft to palpation : COMMON NORMALS: Yes no CVA tenderness Psych: COMMON NORMALS: cooperative Urinary Catheter Management^: Lim: Cath Placed During This Visit: yes Reason for Continuing Indwelling Catheter: Assist Healing of Perineal & Sacral Wounds- Incontinent Patients Urinary Catheter Date of Insertion: 04/26/21 Urinary Catheter Time of Insertion: 09:25 Data : 04/27/21 04:27 04/27/21 04:27 A&P Assessment and plan (1) Status post lumbar spinal fusion: At this point her pain is localized to her right buttock and in right groin region. She denies a fall but certainly seems to be hip pathology. Will recommend an MRI scan of her pelvis to look for sacral insufficiency fracture or right hip fracture. Status: Acute (2) Right hip pain: Status: Acute (3) Arthritis of right sacroiliac joint: Status: Acute Attestations Medical Necessity Statement*: Uncontrolled right hip pain Coding Level of Care Code Acute Quality Assurance Analyst for g Fwd Exam Detailed Diagnoses Status post lumbar spinal fusion Z98.1 Right hip pain M25.551 Arthritis of right sacroiliac joint M47.818 Documented by User: Clay Lam DO 04/27/21 08:32 Providers/Chief Complaint Chief Complaint: back pain Medications/Allergies Home Medications Medication Instructions Recorded Confirmed Last Taken Type felodipine 5 mg PO DAILY MDD see pharmacy 07/04/19 04/26/21 04/25/21 History comment isosorbide mononitrate 60 mg PO DAILY 07/04/19 04/26/21 04/25/21 History krill oil 500 mg capsule 1,000 mg PO DAILY 08/26/20 04/26/21 04/18/21 History multivitamin 1 tab PO DAILY 11/04/20 04/26/21 04/25/21 History magnesium 250 mg tablet 250 mg PO DAILY 11/18/20 04/26/21 04/25/21 History gabapentin 100 mg capsule 100 mg PO BID #60 cap 02/12/21 04/26/21 04/25/21 Rx hydrochlorothiazide 25 mg tablet 25 mg PO DAILY #30 tab 02/17/21 04/26/21 04/25/21 Rx clonidine HCl 0.1 mg tablet 0.1 mg PO DAILY tab 02/23/21 04/26/21 04/25/21 History tamsulosin 0.4 mg capsule 0.4 mg PO BID #30 cap 02/23/21 04/26/21 04/25/21 Rx valsartan 160 mg tablet 160 mg PO BID #60 tab 02/27/21 04/26/21 04/25/21 Rx lidocaine 1 patch TOPICAL DAILY PRN 10 Days 04/25/21 04/26/21 Unknown Rx #10 ea menthol [Biofreeze (menthol)] 1 ea TOPICAL TID PRN 5 Days #473 ml 04/25/21 04/26/21 Unknown Rx oxycodone-acetaminophen [Percocet] 1 tab PO Q6H PRN 3 Days #12 tab 04/25/21 04/26/21 04/25/21 Rx carvedilol 3.125 mg PO BID 04/26/21 04/26/21 04/25/21 History potassium chloride 20 meq PO DAILY MDD see pharmacy 04/26/21 04/26/21 04/25/21 History comment torsemide 10 mg PO DAILY 04/26/21 04/26/21 04/25/21 History Allergies Allergy/AdvReac Type Severity Reaction Status Date / Time prazosin Allergy Severe ALGY-Difficulty Verified 04/25/21 10:07 Breathing hydralazine Allergy Unknown Verified 04/25/21 10:07 PFSH Acute PFSH: Medical History Chronic low back pain Coronary artery disease Eye pain GERD (gastroesophageal reflux disease) History of chronic hypertension History of gallstones History of hypothyroidism History of [place] (myocardial infarction) History of pneumonia Malignant hypertension Surgical History History of heart artery stent History of tubal ligation S/P hysterectomy Family History Other CAD (coronary artery disease) Hypertension Social History Smoking and tobacco status: never smoked Second hand smoke exposure: No Alcohol intake: never Household members: spouse Marital status: Current occupational status: retired History of recent travel: No Physical Exam Urinary Catheter Management^: Lim: Cath Placed During This Visit: no Data : 04/27/21 04:27 04/27/21 04:27 A&P Assessment and plan (1) Right hip pain: pt seen and examined agree with above Status: Acute Coding Level of Care Code Acute Quality Assurance Analyst for [facility] Fwd Exam Detailed Diagnoses Status post lumbar spinal fusion Z98.1 Right hip pain M25.551 Arthritis of right sacroiliac joint M47.818
--- NOTE | 2021-04-27 07:06 | MR_ITS ---
WS: [id number] MRI RIGHT HIP NONCONTRAST TECHNIQUE: Axial T1, axial T2 fat sat, coronal T1, coronal STIR, sagittal T2 fat sat, sagittal T1, an d sagittal T2 fat sat, of both hips. CLINICAL INFORMATION: Right hip pain COMPARISON: CT pelvis April 25, 2021 FINDINGS: Recent postoperative changes L4-5 laminectomy with dorsolateral fusion and pedicle screw fixation. Di ffuse body wall anasarca. Moderate degenerative narrowing both hips. Tiny right joint effusion. Simran l visualized inferior and superior pubic rami. No acute hip fractures. Normal bone marrow signal in t he sacrum. Normal acetabulum bilaterally. Lim catheter in place. No evidence of avascular necrosis in the femoral heads. Sigmoid diverticulosis. Small amount of free fluid in the pelvis. MR/MR hip RT wo con* [id number] IMPRESSION: 1. Moderate degenerative arthritis both hips with joint space narrowing. No ac isa fractures or avascular necrosis. 2. Normal bone marrow signal in the sacrum and pelvis. 3. Diffuse body wall anasarca. Small amount of free fluid in the pelvis. 4. Partially visualized postoperative changes pedicle screw fixation L4-5 with laminectomy defects in the lower lumbar spine.
[2021-04-27] MEDS: gabapentin 300 mg Capsule PO ×2 (08:06→17:59)
[2021-04-27] MEDS: cloNIDine 0.1 mg Tablet PO (08:06)
[2021-04-27] MEDS: tamsulosin 0.4 mg Capsule PO ×2 (08:06→17:59)
[2021-04-27] MEDS: amlodipine 5 mg Tablet PO (08:06)
[2021-04-27] MEDS: isosorbide mononitrate ER 60 mg Tablet PO (08:06)
[2021-04-27] MEDS: carvedilol 3.125 mg Tablet PO ×2 (08:06→17:59)
--- NOTE | 2021-04-27 09:22 | PC.CHAP ---
Pastoral Care Encounter/Spiritual Assessment Type of Contact [] Declined nursing services manager visit [] Patient/Family/Request visit [] Outpatient visit [] Follow-up visit [] Physician referral [] Code/Alert [x] Routine visit [] Staff referral [] Actively dying [] Patient sleeping [] Family support [] [] Out of room [] Palliative care [] [] Receiving care in room [] Pre-surgical visit [] Trauma [] Long length of stay [] ICU visit [] Other: Relational/Emotional Strength [x] Patient feels connected with others/family/visitors/staff [] Distress [] Loneliness/isolation [] Abandonment Spirituality of Patient [x] Person of Radha [] Attends Latter Day of their Radha [x] Believes in Prayer [x] Reads Bible or Uatsdin materials [] There are Spiritual issues to be addressed Instructional Resource Teacher Interventions [] Prayer [] Active listening [] Non-anxious presence [] Spiritual/emotional support [] Crisis/trauma care [] Spiritual counseling [] Bereavement support [] Provided bereavement packet [] Provided Bible/devotional materials [] Provided toy/stuffed animal, coloring book to patient or family member [] Provided Communion [] Anointing/Vernalis [] Salvation [x] Completed spiritual assessment [] Other: Impact on Illness or Injury [] Angry [] Fearful [] Anxious [] Often cries [] Exhaustion [] Unable to work [] Unable to attend christianity [] Unable to walk/stand [] Unable to read [] Unable to drive [] Unable to eat/drink [] Unable to sleep [] Unable to be with family [] Patient intubated [] Other: Summary Time spent with patient 15 min
[2021-04-27 11:59] LABS: Iron 20 ug/dL (37-145); NT Pro B Type Natriuretic Pept 19930 pg/mL (0-450); Thyroid Stimulating Hormone 5.93 uIU/mL (0.27-4.20)
[2021-04-27 12:10] LABS: Percent Saturation 10.6 % (20-50); Total Iron Binding Capacity 187 mcg/dl; Unsaturated Iron Binding 167 ug/dL (112-347)
--- NOTE | 2021-04-27 16:29 | PM.PN ---
Subjective Subjective: Interval history: Hospital course appreciated. Examination lying comfortably in bed. Complaining of pain. Just came back from MRI. States pain was appropriate but increased after MRI. Complaining of constipation. States last bowel movement was on the day of discharge on prior admission. Requesting for enema. Vitals/I&O/Wt Last Vital Signs Temp 98.1 F 04/27/21 15:44 Pulse 53 L 04/27/21 15:44 Resp 18 04/27/21 16:17 BP 128/52 04/27/21 15:44 Pulse Ox 96 04/27/21 15:44 04/27/21 04/27/21 04/27/21 06:59 14:59 22:59 Intake Total 240 / 240 Output Total 650 / 650 Balance -410 / -410 Weight last 48 hrs Weight 68.583 kg Weight 59.874 kg Weight 59.874 kg Physical Exam Const: COMMON NORMALS: no acute distress and patient oriented x3 GENERAL APPEARANCE: not comfortable (Due to back pain.) HENMT: COMMON NORMALS: oropharynx normal Neck/C-Spine: COMMON NORMALS: no JVD Resp: COMMON NORMALS: normal respiratory effort and clear to auscultation bilaterally AUSCULTATION: clear to auscultation bilaterally Cardio: COMMON NORMALS: no JVD, regular rhythm, S1 normal heart sound present, S2 normal heart sound present and No murmurs present (Cardio) RHYTHM: regular rhythm HEART SOUNDS: S1 normal heart sound present and S2 normal heart sound present GI: COMMON NORMALS: Normal to inspection, nondistended, normoactive bowel sounds present, Soft to palpation and non-tender PALPATION: Yes Soft to palpation Extremity: COMMON NORMALS: no joint enlargement and no pedal edema Neuro: COMMON NORMALS: patient oriented x3 and moves all extremities OTHER: Wiggle her toes. Leg movement limited by lower back pain. Urinary Catheter Management^: Lim: Cath Placed During This Visit: yes Reason for Continuing Indwelling Catheter: Assist Healing of Perineal & Sacral Wounds- Incontinent Patients Urinary Catheter Date of Insertion: 04/26/21 Urinary Catheter Time of Insertion: 09:25 Data : 04/27/21 04:27 04/27/21 04:27 A&P Assessment and plan (1) Status post lumbar spinal fusion: Persistent pain, returns to ER for second time after was here yesterday. Work-up included CT pelvis and right lower extremity duplex study. Additional assessment management as per orthospine. Continue pain control. Would avoid NSAIDs given recent DAXA. Currently started on Dilaudid in ER. Needs something for constipation. Subsequently PT, OT. Status: Acute (2) Constipation: Likely with contribution from opioids, possibly pain as well. Needs bowel regimen. Status: Acute Additional A&P Information Recent acute kidney injury: Resolved Recent hyponatremia: Improved CAD: Asymptomatic. Denies any chest pain or pressure, no dyspnea exertion, GARCIA, lower extremity edema. Noted some mild troponin elevation during prior admission, without peak, not suggestive of ID. Formerly on aspirin, depending on whether needs any additional procedures, if safe to do so would resume aspirin 81 mg daily. Would benefit from addition of statin if no contraindication, not sure why this has not been previously started. Continue carvedilol. Imdur. Valsartan. HTN: For now continue clonidine, carvedilol, calcium channel candice, given recent hyponatremia for now hold off HCTZ, given recent DAXA, question of whether she may need surgery, hold off valsartan for now, but may be restarted if no procedures planned and if blood pressure remains high. Pain control. History of hypothyroidism: During hospitalization recommendations were to follow-up with primary provider. Plan for today: Blood pressure elevated so we will restart home dose of valsartan. Goal blood pressure less than 140/90 mmHg. Continue to hold off hydrochlorothiazide for now. Monitor fluid intake. Stop IV fluids. Milk of molasses enema. Continue with bowel regimen. Continue pain management as per primary team. Attestations Medical Necessity Statement*: Per primary team. Time Spent in Patient Care: Greater than 35 minutes (>than 50% of time spent in counselling and/or direct pt care on unit). Coding Level of Care Code Acute Resource Program Teacher for Chg Fwd Diagnoses Status post lumbar spinal fusion Z98.1 Constipation K59.00
[2021-04-27] MEDS: losartan 50 mg Tablet PO (17:59)
[2021-04-27] MEDS: HYDROcodone-acetaminophen 5-325 mg Tablet 1 TAB PO (19:26)
[2021-04-27] MEDS: sennosides 8.6 mg Tablet 17.2 MG PO (19:27)
[2021-04-27] MEDS: ketorolac 30 mg/mL INJ 15 MG IVP (23:16)
[2021-04-28] VITALS (11 sets, daily range): BP systolic 134–182; BP diastolic 55–80; PULSE 49–60; RESP 14–18; TEMP 36.4–36.9; O2SAT 96–98; BMI 28.7
[2021-04-28] MEDS: heparin 5,000 unit/mL INJ 1 mL 5000 UNIT SUBCUT ×3 (01:44→17:36)
[2021-04-28 05:19] LABS: Basophils # 0.1 10^3/uL (0.0-0.1); Basophils % 0.9 %; Eosinophils # 0.5 10^3/uL (0.0-0.8); Eosinophils % 7.9 %; Hemoglobin 9.4 g/dL (11.5-15.3); Lymphocytes # 1.5 10^3/uL (0.8-4.8); Lymphocytes % 23.6 %; Mean Corpuscular HGB Conc 31.3 g/dL (30.0-36.0); Mean Corpuscular Hemoglobin 32.3 pg (28.0-34.0); Mean Corpuscular Volume 103.1 fl (81-99); Mean Platelet Volume 11.5 fL (7.4-10.4); Monocytes # 0.7 10^3/uL (0.2-0.9); Monocytes % 11.3 %; Neutrophils # 3.64 10^3/uL (1.8-7.7); Neutrophils % 56.1 %; Nucleated Red Blood Cells % 0 %; Platelet Count 173 10^3/cmm (130-400); Red Blood Count 2.91 10^6/uL (4.1-5.3); Red Cell Distribution Width 12.1 % (12.1-15.1); White Blood Count 6.5 10^3/uL (4.0-10.0)
[2021-04-28 05:42] LABS: Estmated Average Glucose 100; Hemoglobin A1C 5.1 % (4.0-6.0)
[2021-04-28] MEDS: HYDROmorphone 1 mg/mL INJ 1 mL 0.2 MG SUBCUT ×2 (06:24→22:53)
[2021-04-28] MEDS: ondansetron 2 mg/ML SDV 2 mL 4 MG IVP (06:25)
[2021-04-28 07:46] LABS: Alanine Aminotransferase < 5 U/L (0-33); Albumin Level 2.5 g/dL (3.5-5.2); Alkaline Phosphatase 52 IU/L (35-105); Blood Urea Nitrogen 22 mg/dL (8-23); Calcium 7.8 mg/dL (8.5-10.5); Carbon Dioxide 27 mmol/L (22-29); Chloride 93 mmol/L (98-107); Globulin 2.5 g/dL (1.3-4.6); Glucose 91 mg/dL (65-115); Osmolality Calculated 275 mOsm/kg (285-295); Sodium 131 mmol/L (136-145); Total Bilirubin 0.5 mg/dL (0.15-1.2)
[2021-04-28 07:47] LABS: Chol HDL Ratio 3.46 mg/dL (0.0-4.40); Cholesterol 128 mg/dL (0-200); HDL Cholesterol 37 mg/dL (60-100); LDL Cholesterol Calculated 67 mg/dL (50-129); Triglycerides 119 mg/dL (0-150); VLDL Cholestrol Calculation 24 mg/dL (0-30)
[2021-04-28 07:54] LABS: Anion Gap 14.7 (5-19); Aspartate Amino Transferase 16 U/L (0-32); Potassium 3.7 mmol/L (3.5-5.1)
[2021-04-28] MEDS: magnesium hydroxide 30 mL UDC PO (08:37)
[2021-04-28] MEDS: carvedilol 3.125 mg Tablet PO ×2 (08:37→17:36)
[2021-04-28] MEDS: isosorbide mononitrate ER 60 mg Tablet PO (08:37)
[2021-04-28] MEDS: gabapentin 300 mg Capsule PO ×2 (08:37→17:35)
[2021-04-28] MEDS: ketorolac 30 mg/mL INJ IVP ×2 (08:37→17:36)
[2021-04-28] MEDS: cloNIDine 0.1 mg Tablet PO ×2 (08:37→12:03)
[2021-04-28] MEDS: tamsulosin 0.4 mg Capsule PO ×2 (08:38→17:36)
[2021-04-28] MEDS: amlodipine 5 mg Tablet PO ×2 (08:38→12:03)
[2021-04-28] MEDS: losartan 50 mg Tablet PO ×2 (08:38→17:36)
--- NOTE | 2021-04-28 09:03 | P.PN_ITS ---
Subjective Subjective: Interval history: pt has sever hip pain. does not seem radicular in nature Vitals/I&O/Wt Last Vital Signs Temp 98.3 F 04/28/21 08:00 Pulse 59 L 04/28/21 08:00 Resp 16 04/28/21 08:00 BP 182/78 04/28/21 08:00 Pulse Ox 96 04/28/21 08:00 04/27/21 04/28/21 04/28/21 22:59 06:59 14:59 Intake Total 240 / 240 60 / 300 Output Total 575 / 575 Balance 240 / 240 -515 / -275 Weight last 48 hrs Weight 152 lb 3 oz Weight 151 lb 3.2 oz Weight 132 lb Physical Exam Narrative: EXAM NARRATIVE: pointing to hip for pain Urinary Catheter Management^: Lim: Cath Placed During This Visit: yes Reason for Continuing Indwelling Catheter: Acute Urinary Retention or Obstruction Urinary Catheter Date of Insertion: 04/26/21 Urinary Catheter Time of Insertion: 09:25 Data : 04/28/21 04:45 04/28/21 06:15 A&P Assessment and plan (1) Right hip pain: MRI negative will do Trodol 30 mg over next 24 hrs to see if improves Status: Acute Attestations Medical Necessity Statement*: pain control Coding Level of Care Code Acute Construction Tech for Lawrence Begum Diagnoses Right hip pain M25.551
[2021-04-28 11:14] LABS: Free T4 Free Thyroxine 1.15 ng/dL (0.82-1.77); T3 Free 2.3 PG/ML (2.0-4.4)
--- NOTE | 2021-04-28 13:18 | PM.PN ---
Subjective Subjective: Interval history: No acute events overnight. Continues to complain pain in right hip. Being managed by orthopedics team. Blood pressure trending up today. Denies any nausea vomiting, headache. Vitals/I&O/Wt Last Vital Signs Temp 98.3 F 04/28/21 08:00 Pulse 59 L 04/28/21 08:00 Resp 16 04/28/21 08:00 BP 182/78 04/28/21 08:00 Pulse Ox 96 04/28/21 08:00 04/27/21 04/28/21 04/28/21 22:59 06:59 14:59 Intake Total 240 / 240 60 / 300 240 / 240 Output Total 575 / 575 Balance 240 / 240 -515 / -275 240 / 240 Weight last 48 hrs Weight 69.031 kg Weight 68.583 kg Weight 59.874 kg Physical Exam Const: COMMON NORMALS: no acute distress and patient oriented x3 GENERAL APPEARANCE: not comfortable (Due to back pain.) HENMT: COMMON NORMALS: oropharynx normal Neck/C-Spine: COMMON NORMALS: no JVD Resp: COMMON NORMALS: normal respiratory effort and clear to auscultation bilaterally AUSCULTATION: clear to auscultation bilaterally Cardio: COMMON NORMALS: no JVD, regular rhythm, S1 normal heart sound present, S2 normal heart sound present and No murmurs present (Cardio) RHYTHM: regular rhythm HEART SOUNDS: S1 normal heart sound present and S2 normal heart sound present GI: COMMON NORMALS: Normal to inspection, nondistended, normoactive bowel sounds present, Soft to palpation and non-tender PALPATION: Yes Soft to palpation Extremity: COMMON NORMALS: no joint enlargement and no pedal edema Neuro: COMMON NORMALS: patient oriented x3 and moves all extremities OTHER: Wiggle her toes. Leg movement limited by lower back pain. Urinary Catheter Management^: Lim: Cath Placed During This Visit: yes Reason for Continuing Indwelling Catheter: Acute Urinary Retention or Obstruction Urinary Catheter Date of Insertion: 04/26/21 Urinary Catheter Time of Insertion: 09:25 Data : 04/28/21 04:45 04/28/21 06:15 A&P Assessment and plan (1) Status post lumbar spinal fusion: Persistent pain, returns to ER for second time after was here yesterday. Work-up included CT pelvis and right lower extremity duplex study. Additional assessment management as per orthospine. Continue pain control. Would avoid NSAIDs given recent DAXA. Currently started on Dilaudid in ER. Needs something for constipation. Subsequently PT, OT. Status: Acute (2) Constipation: Likely with contribution from opioids, possibly pain as well. Needs bowel regimen. Status: Acute Additional A&P Information Recent acute kidney injury: Resolved Recent hyponatremia: Improved CAD: Asymptomatic. Denies any chest pain or pressure, no dyspnea exertion, GARCIA, lower extremity edema. Noted some mild troponin elevation during prior admission, without peak, not suggestive of [place]. Formerly on aspirin, depending on whether needs any additional procedures, if safe to do so would resume aspirin 81 mg daily. Would benefit from addition of statin if no contraindication, not sure why this has not been previously started. Continue carvedilol. Imdur. Valsartan. HTN: For now continue clonidine, carvedilol, calcium channel candice, given recent hyponatremia for now hold off HCTZ, given recent DAXA, question of whether she may need surgery, hold off valsartan for now, but may be restarted if no procedures planned and if blood pressure remains high. Pain control. History of hypothyroidism: During hospitalization recommendations were to follow-up with primary provider. Plan for today: Blood pressure still elevated. Continue with home dose of valsartan, clonidine, Coreg. Increase dose of amlodipine to 10 mg daily. Increase dose of clonidine to 0.2 mg daily. Continue to monitor blood pressure with target goal less than 140/90 mmHg. Pain management as per primary team. TSH elevated. Check free T3 and T4. Will add medication accordingly. Attestations Medical Necessity Statement*: As per primary team. Time Spent in Patient Care: Greater than 35 minutes (>than 50% of time spent in counselling and/or direct pt care on unit). Coding Level of Care Code Acute Sales Representative Wire Rope for Chg Fwd Diagnoses Status post lumbar spinal fusion Z98.1 Constipation K59.00
[2021-04-28] MEDS: morphine 4 mg/mL SDV 1 mL IVP ×2 (13:37→22:06)
[2021-04-28] MEDS: lidocaine 5% Patch 1 PATCH TOPICAL (13:37)
[2021-04-28] MEDS: cloNIDine 0.1 mg Tablet 0.2 MG PO (17:36)
[2021-04-28] MEDS: sennosides 8.6 mg Tablet 17.2 MG PO (22:06)
[2021-04-29] VITALS (8 sets, daily range): BP systolic 138–180; BP diastolic 64–76; PULSE 52–68; RESP 15–19; TEMP 36.4–36.9; O2SAT 95–98
[2021-04-29] MEDS: HYDROmorphone 1 mg/mL INJ 1 mL 0.2 MG SUBCUT ×3 (03:39→20:52)
[2021-04-29] MEDS: ketorolac 30 mg/mL INJ IVP ×3 (03:40→16:28)
[2021-04-29] MEDS: heparin 5,000 unit/mL INJ 1 mL 5000 UNIT SUBCUT ×3 (04:12→17:51)
[2021-04-29 05:35] LABS: Alanine Aminotransferase < 5 U/L (0-33); Albumin Level 2.6 g/dL (3.5-5.2); Alkaline Phosphatase 58 IU/L (35-105); Aspartate Amino Transferase 11 U/L (0-32); Blood Urea Nitrogen 25 mg/dL (8-23); Carbon Dioxide 33 mmol/L (22-29); Chloride 93 mmol/L (98-107); Globulin 2.7 g/dL (1.3-4.6); Glucose 93 mg/dL (65-115); Osmolality Calculated 280 mOsm/kg (285-295); Sodium 133 mmol/L (136-145); Total Bilirubin 0.5 mg/dL (0.15-1.2); Total Protein 5.3 g/dL (6.6-8.7)
[2021-04-29] MEDS: isosorbide mononitrate ER 60 mg Tablet PO (07:56)
[2021-04-29] MEDS: amlodipine 5 mg Tablet 10 MG PO (07:56)
[2021-04-29] MEDS: losartan 50 mg Tablet PO ×2 (07:56→17:52)
[2021-04-29] MEDS: magnesium hydroxide 30 mL UDC PO (07:56)
[2021-04-29] MEDS: cloNIDine 0.1 mg Tablet 0.2 MG PO ×2 (07:57→17:51)
[2021-04-29] MEDS: tamsulosin 0.4 mg Capsule PO ×2 (07:57→17:52)
[2021-04-29] MEDS: gabapentin 300 mg Capsule PO ×2 (07:57→17:51)
--- NOTE | 2021-04-29 08:11 | P.PN_ITS ---
Subjective Subjective: Interval history: Ptcontinues to c/o Right hip pain. She has not improved with Meds or rest. reports right buttock and right thigh pain. Vitals/I&O/Wt Last Vital Signs Temp 98.4 F 04/29/21 04:00 Pulse 52 L 04/29/21 04:00 Resp 16 04/29/21 04:00 BP 157/68 04/29/21 04:00 Pulse Ox 98 04/29/21 04:00 04/28/21 04/29/21 04/29/21 22:59 06:59 14:59 Intake Total 480 / 960 Output Total 1000 / 1000 Balance -520 / -40 Weight last 48 hrs Weight 146 lb 6 oz Weight 152 lb 3 oz Weight 152 lb 3 oz Physical Exam Narrative: EXAM NARRATIVE: pain with palpation over the Right buttock and thigh pain, Any movement of the right leg causes increased pain. Skin is warm and with good cap refill, DP/PT 2 + Lumbar Incision c/d Urinary Catheter Management^: Lim: Cath Placed During This Visit: yes Reason for Continuing Indwelling Catheter: Acute Urinary Retention or Obstruction Urinary Catheter Date of Insertion: 04/26/21 Urinary Catheter Time of Insertion: 09:25 Data : 04/28/21 04:45 04/29/21 04:41 A&P Assessment and plan (1) Right hip pain: Status: Acute (2) Lumbar radiculopathy: Status: Acute Attestations Medical Necessity Statement*: await MRI Coding Level of Care Code Acute Band Booker for Lawrence Begum Diagnoses Right hip pain M25.551 Lumbar radiculopathy M54.16
--- NOTE | 2021-04-29 10:15 | MR_ITS ---
WS: [id number] MRI LUMBAR SPINE NONCONTRAST TECHNIQUE: Sagittal T1, T2 and STIR imaging. Axial T1 and T2 imaging. CLINICAL INFORMATION: right hip pain s/p surgery COMPARISON: None. FINDINGS: Exam is somewhat limited due to susceptibility artifact from hardware and advanced thoracol umbar scoliosis. Recent postoperative changes pedicle screw fixation L4-5 laminectomy defects. Expected postoperative changes in the dorsal subcutaneous soft tissues. No high-grade central canal stenosis. L1-L2: Mild disc bulging. Mild left and no significant right foraminal narrowing. Mild facet arthropa thy. Spinal canal is patent. L2-L3: Disc osteophyte complex with endplate ridging. Slight retrolisthesis. Mild bilateral foraminal narrowing. Mild facet arthropathy. Spinal canal is patent. L3-L4: Fluid within the disc space at L3-4. Moderate central canal stenosis with impingement on the t raversing right greater than left L4 nerve roots. Mild bilateral foraminal narrowing. L4-L5: Postoperative changes pedicle screw fixation new from previous. Improved central canal stenosi s. Narrowing of the subarticular recess with encroachment traversing right greater than left L5 nerve roots. Improved mild stenosis right foramen. Mild left foraminal narrowing. Moderate facet arthropat hy. L5-S1: Pedicle screw fixation with laminectomy defects. Impingement on the right greater than left S1 nerve roots. This appears improved from previous. Moderate right foraminal narrowing with contact of the exiting right L5 nerve root. Mild residual central canal stenosis at this level with laminectomy defects. Visualized pelvic bony structures: Normal. Paravertebral soft tissues: Normal. MR/MR lumbar spine wo con* [id number] IMPRESSION: 1. Postoperative changes pedicle screw fixation L4-5 with laminectomy defects is new compared to previous. No high-grade central canal stenosis. 2. Normal postoperative changes in the dorsal subcutaneous soft tissues. 3. Moderate central canal stenosis L3-4 with impingement on the right greater than left subarticular recess and traversing right L4 nerve root. Mild bilatera l foraminal narrowing at this level. 4. Improved central canal stenosis L4-5 with mild residual central canal narro wing and narrowing of the subarticular recess bilaterally. Improved right L4-5 foraminal narrowing. 5. Residual impingement on the traversing right S1 nerve root in the subarticu lar recess. Improved central canal stenosis at this level. 6. Mild to moderate right L5-S1 foraminal narrowing contacts the exiting right L5 nerve root.
--- NOTE | 2021-04-29 13:52 | P.PN_ITS ---
Subjective Subjective: Interval history: pt back from MRI sleeping now Vitals/I&O/Wt Last Vital Signs Temp 98.2 F 04/29/21 11:21 Pulse 54 L 04/29/21 11:21 Resp 15 04/29/21 11:31 BP 164/71 04/29/21 11:21 Pulse Ox 97 04/29/21 11:21 04/28/21 04/29/21 04/29/21 22:59 06:59 14:59 Intake Total 480 / 960 Output Total 1000 / 1000 Balance -520 / -40 Weight last 48 hrs Weight 146 lb 6 oz Weight 152 lb 3 oz Weight 152 lb 3 oz Physical Exam Narrative: EXAM NARRATIVE: resting in bed Urinary Catheter Management^: Lim: Cath Placed During This Visit: yes Reason for Continuing Indwelling Catheter: Acute Urinary Retention or Obstruction Urinary Catheter Date of Insertion: 04/26/21 Urinary Catheter Time of Insertion: 09:25 Data : 04/28/21 04:45 04/29/21 04:41 A&P Assessment and plan (1) Lumbar radiculopathy: pt has no changes other than srews. significant stenosis at L3/4. Possibly distracting the L4/5 level may have flared up the L3/4 level. Will try to coordinate with Dr Walls office being discharged tomorrow and getting steroid injectin in office tomorrow. Status: Acute Attestations Medical Necessity Statement*: Pain control Coding Level of Care Code Acute Audiovisual Production Specialist for Lawrence Begum Diagnoses Lumbar radiculopathy M54.16
[2021-04-29] MEDS: HYDROcodone-acetaminophen 5-325 mg Tablet 1 TAB PO (16:28)
--- NOTE | 2021-04-29 18:44 | P.PN_ITS ---
Subjective Subjective: Interval history: C/o back pain Medications: Reviewed: Yes Vitals/I&O/Wt Last Vital Signs Temp 97.6 F 04/29/21 17:49 Pulse 56 L 04/29/21 17:49 Resp 16 04/29/21 17:49 BP 180/76 04/29/21 17:49 Pulse Ox 95 04/29/21 17:49 04/29/21 04/29/21 04/29/21 06:59 14:59 22:59 Intake Total 480 / 960 Output Total 1000 / 1000 Balance -520 / -40 Weight last 48 hrs Weight 66.395 kg Weight 69.031 kg Weight 69.031 kg Physical Exam Urinary Catheter Management^: Lim: Cath Placed During This Visit: yes Reason for Continuing Indwelling Catheter: Required Immobilization for Trauma or Surgery or Anesthesia Urinary Catheter Date of Insertion: 04/26/21 Urinary Catheter Time of Insertion: 09:25 Data : 04/28/21 04:45 04/29/21 04:41 A&P Assessment and plan (1) Status post lumbar spinal fusion: Management per Ortho Spine Pain control Status: Acute (2) Constipation: Continue bowel regimen Status: Acute Additional A&P Information Recent acute kidney injury: Resolved Recent hyponatremia: Improved, repeat bmp in am CAD: Asymptomatic. - Asa if ok with surgery - Coreg, Imdur, valsartan - stable Hypertension - Hold HCTZ - Continue current management Attestations Medical Necessity Statement*: Continue hospitalization for managemnt of pain, and surgical plan Time Spent in Patient Care: Greater than 35 minutes (>than 50% of time spent in counselling and/or direct pt care on unit) . Coding Level of Care Code Acute Annealing Furnace Tender for Chg Fwd Diagnoses Status post lumbar spinal fusion Z98.1 Constipation K59.00
[2021-04-29] MEDS: sennosides 8.6 mg Tablet 17.2 MG PO (20:53)
[2021-04-30] VITALS (8 sets, daily range): BP systolic 139–187; BP diastolic 52–82; PULSE 48–88; RESP 15–18; TEMP 36.4–36.9; O2SAT 90–98; BMI 27.6
[2021-04-30] MEDS: ketorolac 30 mg/mL INJ IVP ×2 (02:23→09:21)
[2021-04-30] MEDS: ondansetron 2 mg/ML SDV 2 mL 4 MG IVP ×2 (02:23→21:14)
[2021-04-30] MEDS: morphine 4 mg/mL SDV 1 mL IVP ×2 (02:23→21:14)
[2021-04-30] MEDS: heparin 5,000 unit/mL INJ 1 mL 5000 UNIT SUBCUT ×3 (02:24→17:33)
--- NOTE | 2021-04-30 07:50 | P.PN_ITS ---
Documented by User: [email or web address] Burton 04/30/21 07:51 Subjective Subjective: Interval history: Patient resting comfortably. When awoken complains of right leg pain. Vitals/I&O/Wt Last Vital Signs Temp 97.9 F 04/30/21 07:37 Pulse 57 L 04/30/21 07:37 Resp 16 04/30/21 07:37 BP 187/68 04/30/21 07:37 Pulse Ox 95 04/30/21 07:37 04/29/21 04/30/21 04/30/21 22:59 06:59 14:59 Intake Total 120 / 360 Output Total 550 / 550 Balance -430 / -190 Weight last 48 hrs Weight 146 lb Weight 146 lb 6 oz Weight 152 lb 3 oz Physical Exam Narrative: EXAM NARRATIVE: She is alert oriented. Tender with palpation over the right hip and thigh region. Skin is clear warm from good cap refill lumbar incisions are clean and dry. Urinary Catheter Management^: Lim: Cath Placed During This Visit: yes Reason for Continuing Indwelling Catheter: Acute Urinary Retention or Obstruction Urinary Catheter Date of Insertion: 04/26/21 Urinary Catheter Time of Insertion: 09:25 Data : 04/28/21 04:45 04/29/21 04:41 A&P Assessment and plan (1) Lumbar radiculopathy: Discussed with the patient trying to set up with Dr. Walls a transforaminal injection to the right at L3-4. This will be done outpatient. She can follow-up in the office. Discussed this with Dr. Lam he agrees with above-stated plan. Status: Acute (2) Right hip pain: Status: Acute Attestations Medical Necessity Statement*: defer to medical team Coding Level of Care Code Acute Pipe Bowl Paint Trimmer for Chg Fwd Diagnoses Lumbar radiculopathy M54.16 Right hip pain M25.551 Documented by User: Clay Lam DO 04/30/21 08:17 Physical Exam Urinary Catheter Management^: Lim: Cath Placed During This Visit: no Data : 04/28/21 04:45 04/29/21 04:41 A&P Assessment and plan (1) Lumbar radiculopathy: patient did not seam to be in pain this AM. Discussed with Dr Titi moore getting an injection tomorrow. Pt felt like she needed one more night. I told her she either needs to go home tomorrow or we need to get her in a fpc. Up with PT today. plan to D/C tomorrow Status: Acute Coding Level of Care Code Acute Pipe Bowl Paint Trimmer for Lawrence Begum Diagnoses Lumbar radiculopathy M54.16 Right hip pain M25.551
[2021-04-30] MEDS: magnesium hydroxide 30 mL UDC PO (07:57)
[2021-04-30] MEDS: gabapentin 300 mg Capsule PO ×2 (07:58→16:36)
[2021-04-30] MEDS: carvedilol 3.125 mg Tablet PO ×2 (07:58→16:36)
[2021-04-30] MEDS: isosorbide mononitrate ER 60 mg Tablet PO (07:58)
[2021-04-30] MEDS: losartan 50 mg Tablet PO ×2 (07:58→16:36)
[2021-04-30] MEDS: amlodipine 5 mg Tablet 10 MG PO (07:58)
[2021-04-30] MEDS: tamsulosin 0.4 mg Capsule PO ×2 (07:59→16:35)
[2021-04-30] MEDS: cloNIDine 0.1 mg Tablet 0.2 MG PO ×2 (07:59→16:36)
[2021-04-30] MEDS: HYDROcodone-acetaminophen 5-325 mg Tablet 1 TAB PO ×2 (08:03→16:34)
--- NOTE | 2021-04-30 10:10 | PC.SOCIAL ---
IMM update IMM updated with patient. Verbalized an understanding. Copy pg 2 provided. Initialled, dated, timed, and placed in chart.
[2021-04-30 14:14] LABS: Basophils # 0.1 10^3/uL (0.0-0.1); Basophils % 0.9 %; Eosinophils # 0.4 10^3/uL (0.0-0.8); Eosinophils % 5.7 %; Hematocrit 30.5 % (37.0-47.0); Hemoglobin 9.4 g/dL (11.5-15.3); Lymphocytes # 0.8 10^3/uL (0.8-4.8); Lymphocytes % 12.4 %; Mean Corpuscular HGB Conc 30.8 g/dL (30.0-36.0); Mean Corpuscular Hemoglobin 32.1 pg (28.0-34.0); Mean Corpuscular Volume 104.1 fl (81-99); Mean Platelet Volume 11.1 fL (7.4-10.4); Monocytes # 0.6 10^3/uL (0.2-0.9); Neutrophils % 71.7 %; Nucleated Red Blood Cells % 0 %; Platelet Count 258 10^3/cmm (130-400); Red Blood Count 2.93 10^6/uL (4.1-5.3); Red Cell Distribution Width 12.2 % (12.1-15.1); White Blood Count 6.7 10^3/uL (4.0-10.0)
[2021-04-30 14:37] LABS: Alanine Aminotransferase < 5 U/L (0-33); Albumin Level 2.6 g/dL (3.5-5.2); Alkaline Phosphatase 68 IU/L (35-105); Anion Gap 10.7 (5-19); Aspartate Amino Transferase 12 U/L (0-32); Blood Urea Nitrogen 27 mg/dL (8-23); Calcium 8.2 mg/dL (8.5-10.5); Carbon Dioxide 33 mmol/L (22-29); Chloride 93 mmol/L (98-107); Globulin 2.6 g/dL (1.3-4.6); Glucose 126 mg/dL (65-115); Osmolality Calculated 281 mOsm/kg (285-295); Potassium 4.7 mmol/L (3.5-5.1); Sodium 132 mmol/L (136-145); Total Bilirubin 0.5 mg/dL (0.15-1.2); Total Protein 5.2 g/dL (6.6-8.7)
[2021-04-30] MEDS: bisacodyl 10 mg Supp PR (15:27)
--- NOTE | 2021-04-30 17:38 | PM.PN ---
Subjective Subjective: Interval history: Stated she did feel somewhat better today. no new clinical events overnight. Medications: Reviewed: Yes Vitals/I&O/Wt Last Vital Signs Temp 98.4 F 04/30/21 16:00 Pulse 88 04/30/21 16:00 Resp 18 04/30/21 16:00 BP 147/82 04/30/21 16:00 Pulse Ox 97 04/30/21 16:00 04/30/21 04/30/21 04/30/21 06:59 14:59 22:59 Intake Total 600 / 600 480 / 1080 Output Total 550 / 550 Balance 600 / 600 -70 / 530 Weight last 48 hrs Weight 66.224 kg Weight 66.395 kg Physical Exam Narrative: EXAM NARRATIVE: Awake, alert Const: COMMON NORMALS: no acute distress and patient oriented x3 GENERAL APPEARANCE: not comfortable (Due to back pain.) HENMT: COMMON NORMALS: oropharynx normal Neck/C-Spine: COMMON NORMALS: no JVD Resp: COMMON NORMALS: normal respiratory effort and clear to auscultation bilaterally AUSCULTATION: clear to auscultation bilaterally Cardio: COMMON NORMALS: no JVD, regular rhythm, S1 normal heart sound present, S2 normal heart sound present and No murmurs present (Cardio) RHYTHM: regular rhythm HEART SOUNDS: S1 normal heart sound present and S2 normal heart sound present GI: COMMON NORMALS: Normal to inspection, nondistended, normoactive bowel sounds present, Soft to palpation and non-tender PALPATION: Yes Soft to palpation Extremity: COMMON NORMALS: no joint enlargement and no pedal edema Neuro: COMMON NORMALS: patient oriented x3 and moves all extremities OTHER: Wiggle her toes. Leg movement limited by lower back pain. Urinary Catheter Management^: Lim: Cath Placed During This Visit: yes Reason for Continuing Indwelling Catheter: Perioperative Use in Selected Surgeries Urinary Catheter Date of Insertion: 04/26/21 Urinary Catheter Time of Insertion: 09:25 Data : 04/30/21 13:55 04/30/21 13:55 A&P Assessment and plan (1) Status post lumbar spinal fusion: Management per Ortho Spine Pain control Possibly arranging outpatient epidural tomorrow PT/OT on board Fall Precautions. Status: Acute (2) Constipation: Continue bowel regimen Status: Acute Additional A&P Information Recent acute kidney injury: Resolved Recent hyponatremia: Improved, repeat bmp in am CAD: Asymptomatic. - Asa if ok with surgery - Coreg, Imdur, valsartan - stable Hypertension - Hold HCTZ - Continue current management Discharge planning per spine surgery Attestations Medical Necessity Statement*: Will continue current hospitalization as per ortho. Time Spent in Patient Care: Greater than 35 minutes Coding Level of Care Code Acute Propulsion Generator Repairer for Chg Fwd Diagnoses Status post lumbar spinal fusion Z98.1 Constipation K59.00
--- NOTE | 2021-04-30 20:48 | PC.NURSE ---
i reported low 02 58 to nurse
[2021-04-30] MEDS: sennosides 8.6 mg Tablet 17.2 MG PO (20:51)
--- NOTE | 2021-04-30 21:09 | PC.NURSE ---
CHIEF HYDROELECTRIC STATION OPERATOR PT AWAKENED TO TOUCH. ALERT AND ORIENTED-- ABLE TO VERBALIZE NEEDS. HS LAXATIVE GIVEN ORDERED. PT TOOK WITH WATER-- EIATN, HOUSEKEEPING PRESENT AND WITNESSED PT ACKNOWLEDGE MEDICATION RECEIPT.
--- NOTE | 2021-04-30 21:20 | PC.NURSE ---
PRN Morphine Pt c/o continued pain. Requested additional medication for pain in neck 04/05. PRN Morphine and Zofran administered as ordered. IGLESIA lassiter present and witnessed medication vials opened, drawn up, administered, and patient acknowledgement of receipt.
[2021-05-01] VITALS (9 sets, daily range): BP systolic 133–167; BP diastolic 50–67; PULSE 50–56; RESP 8–18; TEMP 36.5–36.9; O2SAT 86–97
--- NOTE | 2021-05-01 00:25 | PC.NURSE ---
i reported low pulse 56 to nurse
[2021-05-01] MEDS: heparin 5,000 unit/mL INJ 1 mL 5000 UNIT SUBCUT ×2 (02:19→12:32)
--- NOTE | 2021-05-01 03:46 | PC.NURSE ---
REASSESSMENT: REASSESSMENT COMPLETE WITH NO ACUTE CHANGES NOTED. PT AWAKENS EASILY TO VOICE-- AAOX4 AND ABLE TO VERBALIZE NEEDS. 2 L/MIN VIA NC PULSE OX 98%. URINARY CATHETER PATENT AND DRAINING. NO S/S OF ACUTE DISTRESS.
[2021-05-01] MEDS: ketorolac 30 mg/mL INJ IVP (04:28)
--- NOTE | 2021-05-01 04:28 | PC.NURSE ---
PRN Toradol Pt c/o pain. PRN Toradol administered. BELIA brock, witnessed nurse open, draw up and administer medication. Pt acknowledged receipt of medication
[2021-05-01 05:41] LABS: Basophils % 0.5 %; Eosinophils # 0.4 10^3/uL (0.0-0.8); Lymphocytes # 1.1 10^3/uL (0.8-4.8); Lymphocytes % 12.8 %; Mean Corpuscular HGB Conc 32.1 g/dL (30.0-36.0); Mean Corpuscular Hemoglobin 32.1 pg (28.0-34.0); Mean Platelet Volume 11.8 fL (7.4-10.4); Monocytes # 0.7 10^3/uL (0.2-0.9); Monocytes % 8.2 %; Neutrophils # 6.49 10^3/uL (1.8-7.7); Neutrophils % 74.2 %; Nucleated Red Blood Cells % 0 %; Platelet Count 237 10^3/cmm (130-400); Red Cell Distribution Width 12.3 % (12.1-15.1); White Blood Count 8.8 10^3/uL (4.0-10.0)
[2021-05-01 06:08] LABS: Alanine Aminotransferase < 5 U/L (0-33); Albumin Level 2.7 g/dL (3.5-5.2); Alkaline Phosphatase 76 IU/L (35-105); Anion Gap 12.6 (5-19); Aspartate Amino Transferase 12 U/L (0-32); Blood Urea Nitrogen 26 mg/dL (8-23); Calcium 8.2 mg/dL (8.5-10.5); Carbon Dioxide 31 mmol/L (22-29); Chloride 92 mmol/L (98-107); Globulin 2.6 g/dL (1.3-4.6); Glucose 102 mg/dL (65-115); Osmolality Calculated 277 mOsm/kg (285-295); Potassium 4.6 mmol/L (3.5-5.1); Sodium 131 mmol/L (136-145); Total Bilirubin 0.5 mg/dL (0.15-1.2); Total Protein 5.3 g/dL (6.6-8.7)
--- NOTE | 2021-05-01 07:00 | PC.NURSE ---
ROUNDS DR. QUINONEZ AT BEDSIDE-- ORDER TO REMOVE HELLER CATHETER. PATIENT TO BE UP TO BEDSIDE COMMODE TO VOID AND ELIMINATE. CATHETER REMOVED PER PROTOCOL.
--- NOTE | 2021-05-01 07:04 | PM.PN ---
Documented by User: NATIVIDAD Burton 05/01/21 07:06 Subjective Subjective: Interval history: Patient resting comfortably. Vitals/I&O/Wt Last Vital Signs Temp 97.7 F 05/01/21 03:20 Pulse 52 L 05/01/21 03:20 Resp 18 05/01/21 03:20 BP 155/63 05/01/21 03:20 Pulse Ox 97 05/01/21 03:20 04/30/21 05/01/21 05/01/21 22:59 06:59 14:59 Intake Total 480 / 1080 90 / 1170 Output Total 550 / 550 500 / 1050 Balance -70 / 530 -410 / 120 Weight last 48 hrs Weight 148 lb Weight 146 lb Physical Exam Narrative: EXAM NARRATIVE: Mild palpatory pain over the right hip buttock region. Skin is clear warm from good cap refill calves are supple no medial thigh tenderness. She is alert and oriented x3 Urinary Catheter Management^: Lim: Cath Placed During This Visit: yes, but has since been removed by the nurse Reason for Continuing Indwelling Catheter: Other Urinary Catheter Date of Insertion: 04/26/21 Urinary Catheter Time of Insertion: 09:25 Date Urinary Catheter Removed: 05/01/21 Time Urinary Catheter Discontinued: 06:50 Data : 05/01/21 05:01 05/01/21 05:01 A&P Assessment and plan (1) Right hip pain: Dr. Hauser has been communicating we will discontinue her Lim catheter. Can provide a bedside commode as needed. Would encourage physical therapy to work on mobilizing. Continue incentive spirometry for pulmonary toilet. Status: Acute Attestations Medical Necessity Statement*: defer to medical team Coding Level of Care Code Acute Intelligence Research Specialist for Chg Fwd Diagnoses Right hip pain M25.551 Lumbar radiculopathy M54.16 Documented by User: Clay Lam DO 05/01/21 07:15 Physical Exam Urinary Catheter Management^: Lim: Cath Placed During This Visit: no Data : 05/01/21 05:01 05/01/21 05:01 A&P Assessment and plan (1) Lumbar radiculopathy: Will d/c today. Set up injection with Dr Walls. D/C home Status: Acute Attestations Medical Necessity Statement*: pain controlled d/c today Coding Level of Care Code Acute Intelligence Research Specialist for [facility] Diagnoses Right hip pain M25.551 Lumbar radiculopathy M54.16
--- NOTE | 2021-05-01 07:12 | PM.DCS ---
Discharge Providers Date of Admission: 04/27/21 19:07 Date of Discharge: May 01, 2021 Attending Provider at Admission: Clay Lam DO Attending Provider at Discharge: Clay Lam DO Primary Care Provider: Doe Bui MD Diagnoses at Discharge Discharge Diagnosis (1) Right hip pain: Status: Acute Reason for Visit Reason for Visit: back pain Hospital Course Hospital Course Patient is admitted on 04/27/21 with me in 1 week in the clinic. Set up so she can get some injections with Dr. Walls before she goes home. She will be discharged on 05/01/2021. Her hospital course was uneventful Physical Exam Urinary Catheter Management^: Lim: Cath Placed During This Visit: yes, but has since been removed by the nurse Reason for Continuing Indwelling Catheter: Other Urinary Catheter Date of Insertion: 04/26/21 Urinary Catheter Time of Insertion: 09:25 Date Urinary Catheter Removed: 05/01/21 Time Urinary Catheter Discontinued: 06:50 Discharge Data Data Completed and Pending: Completed Studies During Hospitalization Category Date Time Status MR hip RT wo con* [id number] Routine MRI 04/27/21 07:06 Completed MR lumbar spine w o con* [id number] Routi ne MRI 04/29/21 10:15 Completed Labs from last 24 hours 05/01/21 05/01/21 04/30/21 05:01 05:01 13:55 WBC 8.8 RBC 2.80 L Hgb 9.0 L Hct 28.0 L MCV 100.0 H MCH 32.1 MCHC 32.1 RDW 12.3 Plt Count 237 MPV 11.8 H Neut % (Auto) 74.2 Lymph % (Auto) 12.8 Beckham % (Auto) 8.2 Eos % (Auto) 4.0 Baso % (Auto) 0.5 Neut # (Auto) 6.49 Lymph # (Auto) 1.1 Beckham # (Auto) 0.7 Eos # (Auto) 0.4 Baso # (Auto) 0.0 Nucleated RBC % (a uto) 0 Nucleated RBCs # 0.0 Sodium 131 L 132 L Potassium 4.6 4.7 Chloride 92 L 93 L Carbon Dioxide 31 H 33 H Anion Gap 12.6 10.7 BUN 26 H 27 H Creatinine 1.1 H 0.8 GFR Calculation Not Reportable Not Reportable Glucose 102 126 H Calculated Osmolal ity 277 L 281 L Calcium 8.2 L 8.2 L Total Bilirubin 0.5 0.5 AST 12 12 ALT < 5 < 5 Alkaline Phosphata se 76 68 Total Protein 5.3 L 5.2 L Albumin 2.7 L 2.6 L Globulin 2.6 2.6 04/30/21 13:55 WBC 6.7 RBC 2.93 L Hgb 9.4 L Hct 30.5 L MCV 104.1 H MCH 32.1 MCHC 30.8 RDW 12.2 Plt Count 258 MPV 11.1 H Neut % (Auto) 71.7 Lymph % (Auto) 12.4 Beckham % (Auto) 9.0 Eos % (Auto) 5.7 Baso % (Auto) 0.9 Neut # (Auto) 4.80 Lymph # (Auto) 0.8 Beckham # (Auto) 0.6 Eos # (Auto) 0.4 Baso # (Auto) 0.1 Nucleated RBC % (a uto) 0 Nucleated RBCs # 0.0 Sodium Potassium Chloride Carbon Dioxide Anion Gap BUN Creatinine GFR Calculation Glucose Calculated Osmolal ity Calcium Total Bilirubin AST ALT Alkaline Phosphata se Total Protein Albumin Globulin Vitals: Last Vital Signs Temp 97.7 F 05/01/21 03:20 Pulse 52 L 05/01/21 03:20 Resp 18 05/01/21 03:20 BP 155/63 05/01/21 03:20 Pulse Ox 97 05/01/21 03:20 Discharge Plan Discharge Patient Disposition: Home Condition: Stable Prescriptions: New Percocet 10-325 mg tablet 1 - 2 tab PO Q4H PRN (Reason: pain) 7 Days Qty: 40 RF: 0 Continued magnesium 250 mg tablet 250 mg PO DAILY RF: 0 clonidine HCl 0.1 mg tablet 0.1 mg PO DAILY RF: 0 tamsulosin 0.4 mg capsule 0.4 mg PO BID Qty: 30 RF: 2 gabapentin 100 mg capsule 100 mg PO BID Qty: 60 RF: 0 hydrochlorothiazide 25 mg tablet 25 mg PO DAILY Qty: 30 RF: 3 valsartan 160 mg tablet 160 mg PO BID Qty: 60 RF: 3 isosorbide mononitrate 60 mg Tablet Extended Release 24 Hr 60 mg PO DAILY RF: 0 felodipine 10 mg Tablet Extended Release 24 Hr 5 mg PO DAILY MDD see pharmacy comment RF: 0 krill oil 500 mg capsule 1,000 mg PO DAILY RF: 0 multivitamin Tablet 1 tab PO DAILY RF: 0 Biofreeze (menthol) 5 % gel 1 ea topical TID PRN (Reason: pain) 5 Days Qty: 473 RF: 0 lidocaine 5 % adhesive patch,medicated 1 patch topical DAILY PRN (Reason: pain) 10 Days Qty: 10 RF: 0 oxycodone-acetaminophen [Percocet] 5-325 mg tablet 1 tab PO Q6H PRN (Reason: pain) 3 Days Qty: 12 RF: 0 torsemide 20 mg tablet 10 mg PO DAILY RF: 0 carvedilol 3.125 mg tablet 3.125 mg PO BID RF: 0 potassium chloride 20 mEq Tablet Extended Release 20 meq PO DAILY MDD see pharmacy comment RF: 0 Discharge Orders: Discharge Order (Routine); Ordered 05/01/21 Ordered By: Clay Lam Referrals: [facility] [Outside] ([facility] will be contacting you about a time to admit you to their services. If you have any questions please call them at [phone].) Discharge Diet: Advance as tolerated Discharge Activity: Limit activity as instructed Patient Instructions: Opioid Safety Activity Restrictions/Additional Instructions: Thank you for [facility] for your care! The following is a list of instructions, from your provider, to follow upon your discharge to ensure you have the optimal recovery from your recent injury orsurgery. Follow-up care is a gray part of your treatment and safety. Be sure to make and go to all appointments, and call your doctor if you are having problems. If you do not already have a follow-up appointment made, call Dr. Lam office in the next 1-3 days to make follow up appointment for 1 weeks at [phone]. It is also a good idea to know your test results and keep a list of the medicines you take. Medications will be prescribed for you at your provider's discretion. These medications are to be used as instructed; if they are taken more often that prescribed they will not be refilled early and in most cases will not be refilled at all. > When a refill is needed,you should contact evette greenberg 2-3 business days before your prescription runs out. Medications will NOT be refilled by control room operator providers after hours! > Many pain medications contain Tylenol (Acetaminophen). Do not consume more than 4,000 mg of Tylenol per day in total with any combination ofmedications. > Pain medications can cause constipation. Please use an over the counter stool softener as directed, while taking pain medications. Consulty our local pharmacist with questions or recommendations on stool softeners. If constipation persists, contact our office or your primary care provider. > While under our care,you are not to receive pain medications or other controlled substances from any other provider unless our office is notified and approves. Any attempts to do so will result in refusal to prescribe any further pain medications and possible dismissal from our practice. ? Your wound and/or dressing should remain clean and dry for 2 days after surgery. On postoperative day 2 (48 hours after your surgery) the dressing (if present) should be removed and it is okay to shower and get the incision wet. Pad dry afterwards. No further dressing should be required from that point on. Do not put any creams or ointments on theincision > It is normal for there to be a small amount of discharge (bloody or blood tinged) present from a surgical wound for the first 1-3days. > The wound should be examined twice a day for signs of infection. Mild redness or bruising is to be expected but indications that an infection maybe starting would include; An increase in redness, swelling, or discharge, a foul odor present around the incision, and/or a fever greater than 101 ?F ? Showering is permitted, however we ask that you do not take a bath, sit in a whirlpool / Jacuzzi, or go swimming for 1 month. For only the first 2 days after surgery, lt wilt be necessary for you to cover your wound/dressing with plastic and tape to keep it dry. ? Walking is essential for the healing process after surgery. We would like you to slowly advance your walking. This should be done on relatively flat clear ground (inside or out) or can be done on a treadmill. Remember this goal does not have to happen all at once, slowly increase your distance and duration. This can be broken into more more than one walk per day as tolerated. Patients who walk as directed after surgery rarely require Physical Therapy. In the unlikely event this issue arises your provider will direct hospital staff to make the appropriate arrangements. ? No lifting over 5 pounds {a gallon of milk) or bending/twisting until further notice. Each of these activities places an unnecessary amount of stress onto the body and can impede the delicate healing process. > Instead of bending at the waist, keep your back straight and bend at the knees. > Instead of twisting your torso, keep your back straight and turn your entire body with your feet. ? You may sleep in any position which makes you comfortable. Many patients find comfort sleeping in a reclining chair. It is not abnormal to have difficulty sleeping for the first several weeks following your surgery. We recommend trying Benadry! or Tylenol PM as directed to help with your sleeping difficulties. Both medications are over the counter and available withoutprescription. ? NO SMOKING!!! Smoking dramatically increases the probability of developing postoperative wound infections. ? Common complaints after lumbar and/or thoracic spine surgery include, but are not limited to: numbness and/or tingling in the legs, pain around the incision and surrounding tissues, muscle spasms, or stiffness of the middle to low back. Contact our office if these symptoms persist or if an acute change occurs. ? No driving for the first 3-5days, and not while taking narcotics [] until seen at your follow-up appointment and cleared. There are no restrictions for riding on short trips, however if you take a longer trip, arrangements should be made to make regular stops to get out of the vehicle and stretch . ? Swelling is an unfortunate event that will take place with any surgery and is the primary source of your postoperative discomfort. While walking and regular approved activities helps control inflammation, there are additional steps you can take to minimizeswelling. > Place ice over the surgical site and surrounding tissue for twenty minutes, followed by applying a low/medium heat (heating pad) for an additional twenty minutes every 1-2 hours as needed for painrelief. > You may use of over the counter anti-inflammatory medications (Ibuprofen, Motrin, Aleve, Advil, etc) as directed on the package label. These types of medicines wm significantly reduce the amount of discomfort you experience after surgery from swelling. It should be noted that if you have and allergy to any of these medications, or a history of ulcers or kidney disease you should consult you primary care provider prior to starting these medications. Discharge Attestations Time Spent in Discharge Care*: less than 30 min Quality Metrics Clinical Quality Measures During this hospital stay, did patient experience: None Coding Level of Care Code Acute g FW DC note Diagnoses Right hip pain M25.551
[2021-05-01] MEDS: amlodipine 5 mg Tablet 10 MG PO (10:25)
[2021-05-01] MEDS: gabapentin 300 mg Capsule PO (10:26)
[2021-05-01] MEDS: isosorbide mononitrate ER 60 mg Tablet PO (10:26)
[2021-05-01] MEDS: cloNIDine 0.1 mg Tablet 0.2 MG PO (10:26)
[2021-05-01] MEDS: tamsulosin 0.4 mg Capsule PO (10:27)
[2021-05-01] MEDS: magnesium hydroxide 30 mL UDC PO (10:27)
[2021-05-01] MEDS: naloxone 0.4 mg/ml SDV IVP (12:21)
--- NOTE | 2021-05-01 14:45 | P.PN_ITS ---
Subjective Subjective: Interval history: no acute events overnight. Medications: Reviewed: Yes Vitals/I&O/Wt Last Vital Signs Temp 98.0 F 05/01/21 11:40 Pulse 50 L 05/01/21 11:40 Resp 8 L 05/01/21 11:40 BP 133/63 05/01/21 11:40 Pulse Ox 86 L 05/01/21 12:57 04/30/21 05/01/21 05/01/21 22:59 06:59 14:59 Intake Total 480 / 1080 90 / 1170 300 / 300 Output Total 550 / 550 500 / 1050 Balance -70 / 530 -410 / 120 300 / 300 Weight last 48 hrs Weight 67.132 kg Weight 66.224 kg Physical Exam Const: COMMON NORMALS: patient oriented x3 HENMT: COMMON NORMALS: normocephalic and atraumatic HEAD & SCALP: normo cephalic and atraumatic Resp: COMMON NORMALS: clear to auscultation bilaterally EFFORT & INSPECTION: Yes symmetric chest movement AUSCULTATION: clear to auscultation bilaterally Cardio: COMMON NORMALS: regular rate, regular rhythm, S1 normal heart sound present, S2 normal heart sound present, No rub (Cardio) and Peripheral pulses 2+ throughout RATE: regular rate RHYTHM: regular rhythm HEART SOUNDS: S1 normal heart sound present and S2 normal heart sound present PERIPHERAL PULSES: Peripheral pulses 2+ throughout OTHER: ESM in aortic area GI: COMMON NORMALS: Normal to inspection, nondistended, normoactive bowel sounds present, Soft to palpation, non-tender, No hepatosplenomegaly present and no masses AUSCULTATION: Yes normoactive bowel sounds PALPATION: Yes Soft to palpation and Yes No hepatosplenomegaly present RECTAL EXAM: deferred Extremity: COMMON NORMALS: no clubbing, cyanosis or edema and no pedal edema Neuro: COMMON NORMALS: patient oriented x3 Urinary Catheter Management^: Lim: Cath Placed During This Visit: yes, but has since been removed by the nurse Reason for Continuing Indwelling Catheter: Other Urinary Catheter Date of Insertion: 04/26/21 Urinary Catheter Time of Insertion: 09:25 Date Urinary Catheter Removed: 05/01/21 Time Urinary Catheter Discontinued: 06:50 Data : 05/01/21 05:01 05/01/21 05:01 A&P Assessment and plan (1) Status post lumbar spinal fusion: Management per Ortho Spine Pain control Possibly arranging outpatient epidural tomorrow PT/OT on board Fall Precautions. Status: Acute (2) Heart failure: Compensated HFrEF. Continue Torsemide 10 mg po daily Patient has qualified for 2 Ls home oxygen as she was desaturating on room air. Status: Acute (3) Aortic stenosis: Moderate Aortic Stenosis:mean gradient 6.4 mmHg, TWYLA 1.4 cm squared. No aortic valve regurgitation. Continue to monitor for now Status: Acute (4) Constipation: Continue bowel regimen Status: Acute (5) History of heart artery stent: Status: Acute (6) History of hypothyroidism: Status: Acute Additional A&P Information Recent acute kidney injury: Resolved Recent hyponatremia: Improved, repeat bmp in am CAD: Asymptomatic. - Asa if ok with surgery - Coreg, Imdur, valsartan - stable Hypertension - Hold HCTZ - Continue current management Discharge planning per spine surgery Attestations Medical Necessity Statement*: Per primary team Coding Level of Care Code Acute Engine Generator Assembler for Chg Fwd Diagnoses Status post lumbar spinal fusion Z98.1 Heart failure I50.9 Aortic stenosis I35.0 Constipation K59.00 History of heart artery stent Z95.5 History of hypothyroidism Z86.39
== END 2021-05-01 16:45 | disposition home health service (06) | DRG 948 ==
LOC: ER 10:01 → ER IP 15:31 → MEDSURG 04-27 07:27
PROVIDERS: Hospitalist; Internal Medicine; Student in an Organized Health Care Education/Training Program; Admitting Provider Orthopaedic Surgery; Emergency Provider Nurse Practitioner Family; PCP Family Medicine; Visit Provider Orthopaedic Surgery
DX: G89.18 Other acute postprocedural pain (principal); E87.1 Hypo-osmolality and hyponatremia; Z98.1 Arthrodesis status; M54.16 Radiculopathy, lumbar region; M48.061 Spinal stenosis, lumbar region without neurogenic claudication; M16.0 Bilateral primary osteoarthritis of hip; R10.31 Right lower quadrant pain; I25.10 Atherosclerotic heart disease of native coronary artery without angina pectoris; K21.9 Gastro-esophageal reflux disease without esophagitis; I10 Essential (primary) hypertension; E03.9 Hypothyroidism, unspecified; I25.2 Old myocardial infarction; R32 Unspecified urinary incontinence; K59.09 Other constipation; Z95.5 Presence of coronary angioplasty implant and graft; Z79.891 Long term (current) use of opiate analgesic
CPT/HCPCS: 36415; 51702; 72148; 72192; 73721; 80048; 80053; 80061; 81001; 81003; 83036; 83540; 83550; 83690; 83880; 84439; 84443; 84481; 85025; 93971; 96361; 96372; 96374; 96375; 97162; 97530; 99283; 99285; G0378; J1170; J1644; J1885; J2270; J2310; J2405; J3490; J7050

== ENCOUNTER → 2021-05-04 12:57 | Outpatient (BNVA) | payer MEDICARE, OTHER, SELFPAY | PROVIDERS: PCP Family Medicine; Visit Provider Anesthesiology Pain Medicine | DX: G89.29 Other chronic pain (principal); M48.062 Spinal stenosis, lumbar region with neurogenic claudication; M47.816 Spondylosis without myelopathy or radiculopathy, lumbar region; M54.16 Radiculopathy, lumbar region; M41.9 Scoliosis, unspecified; M79.604 Pain in right leg; M79.605 Pain in left leg; Z79.891 Long term (current) use of opiate analgesic; Z98.1 Arthrodesis status | CPT/HCPCS: 99214 ==

== ENCOUNTER → 2021-05-28 12:55 | Outpatient (BNVA) | payer MEDICARE, OTHER, SELFPAY | PROVIDERS: PCP Family Medicine; Visit Provider Orthopaedic Surgery | DX: M54.16 Radiculopathy, lumbar region (principal); M48.062 Spinal stenosis, lumbar region with neurogenic claudication; Z48.89 Encounter for other specified surgical aftercare; M41.86 Other forms of scoliosis, lumbar region | CPT/HCPCS: 72100 ==

== ENCOUNTER → 2021-07-09 13:12 | Outpatient (BNVA) | payer MEDICARE, OTHER, SELFPAY | PROVIDERS: PCP Family Medicine; Visit Provider Orthopaedic Surgery | DX: Z48.89 Encounter for other specified surgical aftercare (principal); M54.16 Radiculopathy, lumbar region; M48.062 Spinal stenosis, lumbar region with neurogenic claudication | CPT/HCPCS: 72100 ==

== ENCOUNTER → 2021-09-30 14:12 | Outpatient (BNVA) | payer MEDICARE, OTHER, SELFPAY | PROVIDERS: PCP Family Medicine; Referring Provider Family Medicine; Visit Provider Obstetrics & Gynecology | DX: N81.10 Cystocele, unspecified (principal); R33.9 Retention of urine, unspecified | CPT/HCPCS: 81000; 87086 ==

== ENCOUNTER → 2021-11-10 09:06 | Outpatient (BNVA) | payer MEDICARE, OTHER, SELFPAY | PROVIDERS: PCP Family Medicine; Visit Provider Internal Medicine Cardiovascular Disease | DX: Z01.810 Encounter for preprocedural cardiovascular examination (principal); I25.10 Atherosclerotic heart disease of native coronary artery without angina pectoris; I10 Essential (primary) hypertension; I35.0 Nonrheumatic aortic (valve) stenosis; N81.10 Cystocele, unspecified; I25.2 Old myocardial infarction | CPT/HCPCS: 99214 ==

== ENCOUNTER → 2021-11-20 11:10 | Outpatient (BNVA) | payer MEDICARE, OTHER, SELFPAY | PROVIDERS: PCP Family Medicine; Visit Provider Obstetrics & Gynecology | DX: N81.10 Cystocele, unspecified (principal) | CPT/HCPCS: 81000 ==

== ENCOUNTER 2021-11-25 12:14 | Observation (INO) | payer MEDICARE, OTHER, SELFPAY ==
[2021-11-20 08:52] VITALS: BMI 24.1
--- NOTE | 2021-11-20 09:11 | ECG_ITS ---
[facility] Test Date: 2021-11-20 Pat Name: Kati Chris Department: Room: Gender: Female [employer]: : 1940 Requested By: Marcio Thomas Order Number: [id number] Betty MD: Brian cOasio M.D. Measurements Intervals [place] Rate: 58 P: 68 MA: 172 QRS: -31 QRSD: 166 T: 80 QT: 487 QTc: 479 Interpretive Statements SINUS BRADYCARDIA LEFT AXIS DEVIATION [QRS AXIS < -30] LEFT BUNDLE BRANCH BLOCK [120+ ms QRS DURATION, 80+ ms Q/S IN V1/V2, 85+ ms R IN I/aVL/V5/V6] Compared to ECG 12/01/2020 09:45:51 No significant changes Electronically Signed On 11-20-2021 22:19:28 CDT by Brian Ocasio M.D. [id number]
[2021-11-20 09:47] LABS: Basophils # 0.1 10^3/uL (0.0-0.1); Basophils % 1.1 %; Eosinophils # 0.2 10^3/uL (0.0-0.8); Eosinophils % 3.1 %; Hematocrit 37.1 % (37.0-47.0); Hemoglobin 12.5 g/dL (11.5-15.3); Lymphocytes # 1.2 10^3/uL (0.8-4.8); Lymphocytes % 16.9 %; Mean Corpuscular HGB Conc 33.7 g/dL (30.0-36.0); Mean Corpuscular Hemoglobin 32.3 pg (28.0-34.0); Mean Corpuscular Volume 95.9 fl (81-99); Mean Platelet Volume 10.9 fL (7.4-10.4); Monocytes # 0.7 10^3/uL (0.2-0.9); Neutrophils % 69.6 %; Nucleated Red Blood Cells % 0 %; Platelet Count 200 10^3/cmm (130-400); Red Blood Count 3.87 10^6/uL (4.1-5.3); Red Cell Distribution Width 12.6 % (12.1-15.1); White Blood Count 7.3 10^3/uL (4.0-10.0)
--- NOTE | 2021-11-20 09:53 | ANES.PREANE2 ---
Pre-Anesthetic Assessment Height/Weight: Height 1.55 m Weight 58.06 kg Preop Diagnosis: lumbar stenosis with neurogenic claudication Operation Date: 11/25/21 09:00 Proposed Procedures p Colpocleisis 54754/N81.10(Not Applicable) - Heladio Michael MD Familial anesthetic complications: none Was Beta Gino taken within 24 hours: Yes Was Clonidine taken within 24 hours: Yes Social No alcohol and No tobacco Exam alert, oriented x 3, clear to auscultation bilaterally and regular rate & rhythm Airway Submandibular: Other (Limited < 2 finger breadths ) Cervical ROM: Other (Limited extension, flexion ) Mallampati: Class III Dentition: chipped Comments: Comments: Small mouth opening Missing some teeth Pulmonary None reported CV/HEM Coronary Artery Disease, Congestive Heart Failure, Hypertension, Myocardial Infarction and Murmur (Aortic stenosis ) Data from Doctor Marquez note 11/10/[address] Marquez for procedure w/o further work up METS > 4 Date of Service: 03/10/21 Procedure(s): Sestamibi Stress Test Request CONCLUSION: Please note due to baseline abnormality of the EKG specificity and sensitivity of the EKG portion of LexiScan MIBI stress test will be low 1.? EKG not suggestive of ischemia 2.? Lexiscan injection unremarkable. 3.? Perfusion scan will be documented separately. Electronically Signed On 03-12-2021 12:06:29 CDT by KERRY CASTELLANOS Date of Service: 03/10/21 Procedure(s): NM joo perf SPECT r/s* [id number] ?IMPRESSIONS ?Large area of old myocardial infarction versus scarring noted in basal to ?distal anterior and anteroseptal wall without significant ischemia.? Medium- ?sized area of old myocardial infarction versus scarring noted in basal to ?distal inferoseptal wall.? EKG segment will be documented separately. ?Kerry Castellanos MD? ?(Electronically Signed) Chronic Renal Insufficiency Hepatic None reported GI None reported Metabolic Thyroid Disease Musc/skel Lower Back Pain and Osteoarthritis/DJD Facet arthritis Neuropsych None reported Anesthetic Plan ASA status: 3 (81 year old female with CAD, CHF, , HTN, CKD, and hypothyroidism ) Anesthesia: Anesthesia Evaluation and General Other: We discussed risk and benefits of general anesthesia including PONV, sore throat (sometimes severe), corneal abrasion, positioning and peripheral nerve injuries, life threatening allergic reaction, post operative ICU admission requiring prolonged intubation, stroke, heart attack, , and rare incidences of recall. Patient consents to proceed with general anesthesia. Risk of > 500 ml blood loss (7ml/kg in children): No Medications/Allergies Home Medications Medication Instructions Recorded Confirmed Last Taken Type isosorbide mononitrate 60 mg 60 mg PO DAILY 07/04/19 11/20/21 04/25/21 History tablet,extended release 24 hr gabapentin 100 mg capsule 100 mg PO BID #60 cap 02/12/21 11/20/21 04/25/21 Rx clonidine HCl 0.1 mg tablet 0.1 mg PO DAILY tab 02/23/21 11/20/21 04/25/21 History tamsulosin 0.4 mg capsule 0.4 mg PO BID #30 cap 02/23/21 11/20/21 04/25/21 Rx valsartan 160 mg tablet 160 mg PO BID #60 tab 02/27/21 11/20/21 04/25/21 Rx carvedilol 3.125 mg tablet 3.125 mg PO BID 04/26/21 11/20/21 04/25/21 History potassium chloride 20 mEq 20 meq PO DAILY MDD see pharmacy 04/26/21 11/20/21 04/25/21 History tablet,extended release comment hydrochlorothiazide 25 mg tablet 25 mg PO DAILY #90 tab 06/29/21 11/20/21 Unknown Rx aspirin 325 mg tablet 325 mg PO DAILY 10/13/21 11/20/21 11/17/21 History felodipine 10 mg tablet,extended 5 mg PO DAILY MDD see pharmacy 10/13/21 11/20/21 Unknown History release 24 hr comment hydrocodone 10 mg-acetaminophen 1 tab PO Q6H PRN 10/13/21 11/20/21 Unknown History 325 mg tablet levothyroxine 75 mcg capsule 75 mcg PO DAILY 10/13/21 11/20/21 Unknown History torsemide 5 mg tablet 5 mg PO DAILY 10/13/21 11/20/21 Unknown History krill oil 500 mg capsule 1,000 mg PO DAILY 11/10/21 11/20/21 Unknown History magnesium 250 mg tablet 250 mg PO DAILY 11/10/21 11/20/21 Unknown History multivitamin 1 tab PO DAILY 11/10/21 11/20/21 Unknown History Allergies Allergy/AdvReac Type Severity Reaction Status Date / Time prazosin Allergy Severe ALGY-Difficulty Verified 11/20/21 10:26 Breathing hydralazine Allergy Unknown Verified 11/20/21 10:26 [facility] Anesthesia Medical History Chronic low back pain Has had recent back surgery Coronary artery disease History of CO (myocardial infarction) 2018--had coronary artery stent placed Hypertension Chronic hypertension diagnosed at the age of 31. Follows up with cardiology Dr. Castellanos as well as her primary care provider. No pertinent past medical history Denies diabetes, asthma, seizures, DVT/PE PCP: Dr. Bui Surgical History History of back surgery March 2021--performed by Dr. Nunez at [facility]. History of heart artery stent 2017 after heart attack History of tubal ligation In her mid 30s---done through supra umbilical minilaparotomy incision S/P hysterectomy Vaginal hysterectomy for prolapse performed by Dr. George in 2018. Her ovaries were not removed. Family History Mother Heart disease Hypertension Colon cancer diagnosed in her late 60s Daughter Heart disease Family/Other Breast cancer maternal aunt, age at diagnosis unknown Social History Smoking and tobacco status: never smoked Data Anesthesia : 11/20/21 09:30 11/20/21 09:30 Short CBC 11/20/21 Range/Units 09:30 WBC 7.3 (4.0-10.0) 10^3/uL Hgb 12.5 (11.5-15.3) g/dL Hct 37.1 (37.0-47.0) % MCV 95.9 (81-99) fl Plt Count 200 (130-400) 10^3/cmm Neut % (Auto) 69.6 % Neut # (Auto) 5.10 (1.8-7.7) 10^3/uL Cardiac Studies: Echocardiogram 03/11/21 Sestamibi Stress Test (Cardiology) 03/10/21
[2021-11-20 10:05] LABS: Blood Urea Nitrogen 32 mg/dL (8-23); Calcium 9.3 mg/dL (8.5-10.5); Carbon Dioxide 19 mmol/L (22-29); Chloride 93 mmol/L (98-107); Glucose 109 mg/dL (65-115); Osmolality Calculated 271 mOsm/kg (285-295); Sodium 127 mmol/L (136-145)
[2021-11-20 10:11] LABS: Anion Gap 19.6 (5-19); Potassium 4.6 mmol/L (3.5-5.1)
[2021-11-25] VITALS (41 sets, daily range): BP systolic 104–217; BP diastolic 49–130; PULSE 54–169; RESP 12–29; TEMP 36.4–37.1; O2SAT 67–100
[2021-11-25] MEDS: enoxaparin 30 mg/0.3 mL Syringe SUBCUT (08:07)
[2021-11-25] MEDS: sodium chloride 0.9% 500 ML IV (08:08)
[2021-11-25 08:26] LABS: Basophils # 0.1 10^3/uL (0.0-0.1); Eosinophils # 0.3 10^3/uL (0.0-0.8); Eosinophils % 3.6 %; Hematocrit 40.4 % (37.0-47.0); Hemoglobin 13.2 g/dL (11.5-15.3); Lymphocytes # 1.6 10^3/uL (0.8-4.8); Lymphocytes % 18.2 %; Mean Corpuscular HGB Conc 32.7 g/dL (30.0-36.0); Mean Corpuscular Volume 98.1 fl (81-99); Mean Platelet Volume 11.1 fL (7.4-10.4); Monocytes # 0.8 10^3/uL (0.2-0.9); Monocytes % 8.7 %; Neutrophils # 5.96 10^3/uL (1.8-7.7); Neutrophils % 68.3 %; Nucleated Red Blood Cells % 0 %; Platelet Count 229 10^3/cmm (130-400); Red Blood Count 4.12 10^6/uL (4.1-5.3); Red Cell Distribution Width 12.7 % (12.1-15.1); White Blood Count 8.7 10^3/uL (4.0-10.0)
[2021-11-25] MEDS: scopolamine 1.5 Patch 1 PATCH TRANSDERMA (08:31)
--- NOTE | 2021-11-25 10:08 | W.PM.OPSUD ---
Surgery/Procedure H&P Update DATE OF PROCEDURE: November 25, 2021 DATE H&P PERFORMED: 11/20/21 H&P UPDATE INFORMATION: I have reviewed H&P completed within last 30 days, I have examined patient prior to procedure and No changes to prior documentation PREOP DIAGNOSIS: Vaginal prolapse, urinary incontinence PLANNED PROCEDURE: Operation Date: 11/25/21 09:00 Proposed Procedures p Colpocleisis 98840/N81.10(Not Applicable) - Heladio Michael MD
--- NOTE | 2021-11-25 12:11 | P.OP_ITS ---
Operative Report Date of procedure: November 25, 2021 Pre-op diagnosis: Preop Diagnosis Vaginal prolapse, urinary incontinence Post-op diagnosis: Same as above Post-op findings: Vaginal prolapse Procedure done: Colpocleisis Single incision mid urethral sling Cystoscopy Implants: Coloplast Altis single incision sling Surgeon: Heladio Michael MD Estimated blood loss (mL): 20 Procedure: After obtaining informed consent, the patient was taken to the operating room and placed in the supine position, given general anesthesia. The patient was then placed in the dorsal lithotomy position. Examination under anesthesia was performed. She was prepped and draped in the usual manner for vaginal surgery. Initially, the prolapse was explored to identify what would be the apex. A Mami clamp was placed on either side of the midline at this apex area. A transverse incision was made with the scalpel between these 2 Mami clamps and the Metzenbaum scissors was then used to undermine and incise the vaginal mucosa from this point up to a point approximately 3-5 cm shy of the urethral meatus. The vaginal mucosa was dissected off of the underlying fascia with blunt and sharp dissection on either side, similar to what would be done for anterior vaginal repair. Then, approximately a 5 cm width of underlying fascia had been exposed. The excess vaginal mucosa was then trimmed off. At this point, any bleeding was controlled with the Bovie apparatus and a Mami clamp was placed on either side of the midline of the vaginal introitus posteriorly. A triangular shaped section of skin was excised off the perineal body using the scalpel, the base of the triangle between the 2 Mami clamps and the apex superior to the anal verge. The vaginal mucosa was then undermined and incised in the midline up to the vaginal apex point, again using Metzenbaum scissors. The vaginal mucosa was then dissected off the underlying fascia on either side of the midline using blunt and sharp dissection as would usually be done in a posterior repair. When a similar width of fascial tissue had been exposed, as on the anterior surface, again the excess vaginal mucosa was excised off either side. At this point, starting at the apex, 3-0 Vicryl sutures were placed in vertical mattress fashion, taking a bite of tissue anteriorly, crossing the apex and then taking a bite of tissue posteriorly. After 5 such mattress sutures were placed, they were cinched up and tied. Following this, another layer of sutures were placed in a similar fashion. In this manner, the anterior vaginal surface was sutured to the posterior vaginal surface and several such layers of this suturing technique were performed until the vagina was closed. At this point, the exposed fascial surface was closed over with remaining vaginal mucosa, gathered from the left and the right sides and closed with a running locking suture in a vertical orientation, starting inferior to the urethra and working posteriorly to the vaginal introitus. This left the perineal body exposed. A crown suture was placed on either side to shore up the vaginal introitus and the skin was reapproximated over the defect in the perineal body with a layer of running subcutaneous suture, followed by a layer of subcuticular suture to close the perineal body and effect a perineoplasty. The anterior vaginal mucosa beneath the midurethra was infiltrated with 2% lidocaine with epinephrine. A vertical midline incision was made beneath the midurethra, nearly 1.5 cm length. Careful submucosal dissection was performed bilaterally up to the interior portion of the inferior pubic ramus. The insertion of adductor longus tendon on the patient?s pubic ramus was identified as reference land robert. Palpated the notch along the internal edge of ischiopubic ramus where the adductor longus tendon and the inferior pubic ramus meet. The Altis single incision sling (SIS) was selected. Then the needle of the SIS inserted aiming at the location of this notch. One of the integrated self- fixating tips place onto the needle by sliding it over the end of the needle. The needle/sling assembly was inserted toward the location of identified reference notch making sure that the flat of the handle is perpendicular to the desired path. The needle was tracked along the posterior surface of the ischiopubic ramus until the midline robert on the mesh is approximately at the midline position under the urethra. The needle was removed and the same was repeated on the contralateral side until the appropriate sling tension under the urethra was achieved ensuring that the mesh lays flat. The needle was removed and vaginal incision was closed in a running interlocking fashion with 2-0 Vicryl. Then the Lim catheter was removed and cystoscope was inserted. The bladder was filled with sterile water. Complete evaluation of the bladder mucosa was performed noting no lacerations, dimpling, tears, bleeding of the mucosa or muscular layers. Both ureteral orifices were identified. Prompt excretion of urine from both ureteral orifices was noted. Cystoscope was withdrawn. The Lim catheter was replaced. Excellent hemostasis was obtained. The patient was returned to the supine position. Sponge, lap, needle, and instrument counts were correct times three. There were no complications. The patient was taken to the recovery room, awake and in stable condition.
--- NOTE | 2021-11-25 12:22 | ECG_ITS ---
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 Measurements Intervals [place] Rate: 81 P: 58 MO: 187 QRS: -61 QRSD: 169 T: 95 QT: 435 QTc: 506 Interpretive Statements SINUS RHYTHM POSSIBLE LEFT ATRIAL ENLARGEMENT [-0.1mV P-WAVE IN V1/V2] LEFT AXIS DEVIATION [QRS AXIS < -30] LEFT BUNDLE BRANCH BLOCK [120+ ms QRS DURATION, 80+ ms Q/S IN V1/V2, 85+ ms R IN I/aVL/V5/V6] Compared to ECG 11/20/2021 09:15:45 Sinus bradycardia no longer present Electronically Signed On 11-25-2021 19:43:23 CDT by Brian Ocasio M.D. [id number]
[2021-11-25] MEDS: nitroglycerin 0.4 mg sublingual Tablet SUBLINGUAL (12:31)
--- NOTE | 2021-11-25 12:56 | SUR.PHASEI ---
1216 PT TO PACU AWAKES TO VOICE, VERBALLY DENIES PAIN TO ABDOMEN, IV PTATENT TO RT AC #20 WITH NS 150ML UP AT KVO PER GRAVITY, ABDOMEN SOFT YOHAN PAD D/I BILAT SCDS ON AND WORKING. 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 1220 EKG DONE AT BEDSIDE, PHARMACY CALLED FOR SUBLINGUAL NTG. 1230 NITROSTAT SL 0.4MG GIVEN ORDERED, PT VSS 1235 PT STATES CHEST PAIN IS (GONE NOW) HR IN 60'S UNCHANGED BBB. SATS 99% WITH NO DISTRESS, ABDOMEN REMAINS SOFT.
--- NOTE | 2021-11-25 12:57 | PM.MISC ---
Miscellaneous Note Purpose of Documentation: Chest pain Note: Patient complaining of chest pain post op. EKG, nitroglycerin, morphine, O2 by SUPER[employer]OR [employer]ODUCTION DEPARTMENT. EKG appears unchanged. CP resolved. Serial Troponins ordered. Patient hypertensive, labetalol ordred as well as enalaprilat.
[2021-11-25] MEDS: labetalol 5 mg/mL SDV 20mL 10 MG IVP (13:17)
--- NOTE | 2021-11-25 13:27 | SUR.PHASEI ---
1322 PT GIVEN LABETOLOL 5MG, HR NOW DOWN TO 60, PT HR BEFORE MED WAS 65-58, DR MULTANI AT BEDSIDE, ORDERS GIVEN TO JUST GIVE THE 5MG AND TO GIVE THE ORDERED VASOTEC IV. PT AWAKE ALERT LAB AT BEDSIDE FOR STAT TROPONIN LEVEL PT UPDATED BY RN EARLIER THAT PT HAD SOME CHEST PAIN AFTER SURGERY BUT THAT IS GONE NOW, BUT WE WILL KEEP HER IN PACU FOR A WHILE TO WATCH HER. NO PROBLEMS OR COMPLAINTS VOICED.
[2021-11-25] MEDS: enalaprilat 1.25 mg/mL Inj 0.625 MG IVP ×2 (13:35→14:52)
[2021-11-25] MEDS: sodium chloride 0.9% 1,000 ML 30 ML IV (13:40)
[2021-11-25] MEDS: morphine 4 mg/mL SDV 1 mL 2 MG IVP ×2 (13:42→15:58)
--- NOTE | 2021-11-25 13:53 | SUR.PHASEI ---
PT C/O OF INCREASED BACK PAIN ,SEE MORPHINE GIVEN, BP BETTER WITH PAIN MED, DR MULTANI AND DR VO AT BEDSIDE.
--- NOTE | 2021-11-25 14:06 | PM.CONSULT ---
Providers/Reason For Consult Consulting Physician/Specialty*: Hospital service Reason for Consult*: Chest pain, elevated blood pressures Requesting Physician: Dr. Thomas Attending Physician: Heladio Michael MD Primary Care Provider: Doe Bui MD History of Present Illness History of Present Illness Kati Chris is a 81 year old female with past medical history of coronary artery disease, post PCI, hypertension, GERD, hypothyroidism, CKD stage III, chronic lower back pain, moderate aortic stenosis who was admitted to the hospital today under [employer] ATTOR[employer] service and underwent colpocleisis. Postoperatively while patient was in recovery she complaint of central chest pain and mild difficulty in breathing while was reversed with anesthesia and was found to have high blood pressures so hospital service was consulted for further evaluation and management. On examination in PACU, patient was lying comfortably in bed still recovering postanesthesia. Denies any further chest pain. States when she came out of the OR she was having central chest burning sensation and slight difficulty in breathing which was relieved by medication. As per the nurse she was given 1 dose of enalaprilat and sublingual nitro. Patient denies having any further complaints currently. Her blood pressure during examination was 187mmhg systolic with heart rate running in 60s and saturating 98% on 3 L. Blood work showed a white count of 8.7, hemoglobin of 13.2, platelet count 229, baseline troponin was drawn and was reported to be 53. While in recovery patient has received overall 2 doses of enalaprilat. Estimated blood loss 20 cc. Review of Systems General: Reports: 10 or more systems reviewed and unremarkable except in HPI and below Const: Denies: fever(s), chills, body aches, change in appetite, change in weight, malaise, night sweats, diaphoresis, change in sleep pattern, daytime sleepiness or snoring Eyes: Denies: change in vision, blurry vision, photophobia, eye discomfort or eye discharge ENMT: Denies: throat pain, enlarged tonsils, hoarseness, mouth pain, oral sores, dry mouth, tinnitus, nasal congestion or post nasal drip Card: Denies: chest pain, palpitations, irregular heart rhythm, edema, swelling of feet/ankles, lightheadedness, syncope, pre-syncope, dyspnea on exertion, orthopnea, leg pain with exertion or acrocyanosis Resp: Denies: dyspnea, productive cough, non-productive cough, wheezing, stridor, pain on inspiration, change in phlegm color, hemoptysis or chest congestion GI: Denies: abdominal pain, nausea, vomiting, hematemesis, coffee ground emesis, dysphagia, heartburn, diarrhea, constipation, bloating, GI cramping, change in bowel habits, pain on defecation, hematochezia or melena : Denies: flank pain, dysuria, urinary frequency, urinary urgency, urinary hesitancy, nocturia or hematuria Musc: Denies: neck pain, back pain, extremity pain, joint pain, joint swelling, joint redness, joint stiffness or limited range of motion Neuro: Denies: headache(s), numbness in extremities, weakness in extremities, sensory changes, lack of coordination, difficulty walking, frequent falls, dizziness, vertigo, confusion, Slurred speech present, difficulty communicating thoughts or seizure-like activity Psych: Denies: anxiety, depression, mood swings, panic attacks, hopelessness or irritability Endo: Denies: polyuria, polydipsia, tired all the time, cold intolerance, excessive sweating, flushing or heat intolerance Miller/Lymph: Denies: easy bruising or easy bleeding All/Imm: Denies: tongue swelling, facial swelling or acute wheezing Medications/Allergies Home Medications Medication Instructions Recorded Confirmed Last Taken Type isosorbide mononitrate 60 mg 60 mg PO DAILY 07/04/19 11/25/21 11/24/21 History tablet,extended release 24 hr gabapentin 100 mg capsule 100 mg PO BID #60 cap 02/12/21 11/25/21 11/24/21 Rx clonidine HCl 0.1 mg tablet 0.1 mg PO DAILY tab 02/23/21 11/25/21 11/24/21 History tamsulosin 0.4 mg capsule 0.4 mg PO BID #30 cap 02/23/21 11/25/21 11/24/21 Rx valsartan 160 mg tablet 160 mg PO BID #60 tab 02/27/21 11/25/21 11/24/21 Rx carvedilol 3.125 mg tablet 3.125 mg PO BID 04/26/21 11/25/21 11/24/21 History potassium chloride 20 mEq 20 meq PO DAILY MDD see pharmacy 04/26/21 11/25/21 11/24/21 History tablet,extended release comment hydrochlorothiazide 25 mg tablet 25 mg PO DAILY #90 tab 06/29/21 11/25/21 11/24/21 Rx aspirin 325 mg tablet 325 mg PO DAILY 10/13/21 11/20/21 11/17/21 History felodipine 10 mg tablet,extended 5 mg PO DAILY MDD see pharmacy 10/13/21 11/25/21 11/24/21 History release 24 hr comment hydrocodone 10 mg-acetaminophen 1 tab PO Q6H PRN 10/13/21 11/25/21 11/24/21 History 325 mg tablet levothyroxine 75 mcg capsule 75 mcg PO DAILY 10/13/21 11/25/21 11/24/21 History torsemide 5 mg tablet 5 mg PO DAILY 10/13/21 11/25/21 11/24/21 History krill oil 500 mg capsule 1,000 mg PO DAILY 11/10/21 11/20/21 Unknown History magnesium 250 mg tablet 250 mg PO DAILY 11/10/21 11/25/21 11/24/21 History multivitamin 1 tab PO DAILY 11/10/21 11/25/21 Unknown History Allergies Allergy/AdvReac Type Severity Reaction Status Date / Time prazosin Allergy Severe ALGY-Difficulty Verified 11/20/21 10:26 Breathing hydralazine Allergy Unknown Verified 11/20/21 10:26 Current Medications Generic Name Dose Route Start Last Admin Trade Name Freq PRN Reason Stop Dose Admin Morphine Sulfate 2 mg 11/25/21 11:25 11/25/21 13:42 Morphine 4 Mg/Ml Sdv 1 Ml IVP 11/26/21 11:25 2 mg Q5M PRN Administration Pain level 2-5 PACU Phase I Nitroglycerin 0.4 mg 11/25/21 12:29 11/25/21 12:31 Nitroglycerin 0.4 Mg Sublingual Tablet SUBLINGUAL 0.4 tab Q5M PRN Administration CHEST PAIN PFSH Acute PFSH: Medical History (Updated 11/25/21 @ 17:28 by Amari Avila MD) Chronic low back pain Has had recent back surgery Coronary artery disease History of MO (myocardial infarction) 2017--had coronary artery stent placed Hypertension Chronic hypertension diagnosed at the age of 31. Follows up with cardiology Dr. Castellanos as well as her primary care provider. No pertinent past medical history Denies diabetes, asthma, seizures, DVT/PE PCP: Dr. Bui Vaginal prolapse 09/30/2021--grade 3-4 cystocele, grade 3 vault prolapse, grade 1 rectocele Surgical History (Updated 11/25/21 @ 17:28 by Amari Avila MD) History of back surgery March 2021--performed by Dr. Nunez at [facility]. History of heart artery stent 2017 after heart attack History of tubal ligation In her mid 30s---done through supra umbilical minilaparotomy incision S/P hysterectomy Vaginal hysterectomy for prolapse performed by Dr. George in 2018. Her ovaries were not removed. Family History Mother Heart disease Hypertension Colon cancer diagnosed in her late 60s Daughter Heart disease Family/Other Breast cancer maternal aunt, age at diagnosis unknown Social History Smoking and tobacco status: never smoked Vitals/I&O/Wt Last Vital Signs Temp 98.3 F 11/25/21 12:17 Pulse 59 L 11/25/21 13:00 Resp 17 11/25/21 13:42 BP 174/79 11/25/21 13:00 Pulse Ox 100 11/25/21 13:42 11/24/21 11/25/21 11/25/21 22:59 06:59 14:59 Intake Total 50 / 50 Output Total 420 / 420 Balance -370 / -370 Physical Exam Narrative: General: No acute distress, AO x3, slightly drowsy post operative in PACU HEENT: PERRLA, pupils bilaterally equal and reactive Chest: Normal vesicular breath sounds, no added sounds, equal good air entry bilaterally CVS: S1-S2 regular, ESM at aortic region, no tachycardia, no gallops, no rubs Abdomen: Soft, nontender, no organomegaly, bowel sounds present Neuro: No focal deficits, no facial deformity, AO x3, power 5/5 in all limbs Urinary Catheter Management: Lim: Cath Placed During This Visit: yes Urinary Catheter Date of Insertion: 11/25/21 Urinary Catheter Time of Insertion: 11:02 Data : 11/25/21 08:12 11/20/21 09:30 A&P Assessment and plan (1) Uncontrolled hypertension: Most likely 2/2 not taking oral meds. Takes Coreg 3.125 BID, Clonidine 0.1 mg PO daily, feldopine 5 mg po QD, HTCZ 25 mg PO QD, Imdur 60 mg PO QD, Valsartan 160 mg PO BID For now restart coreg, clonidine, imdur 30 mg Goal BP less than 140/90 mmhg. Status: Acute (2) History of heart artery stent: Cycle troponin/EKG. C/w ASA, statin. Check HBA1c, lipid panel Last Stress test 03/17 negative for Ischemia. ECHO done 03/17 shows EF of 40%, GDD I, Mod , Status: Acute (3) History of MO (myocardial infarction): Status: Acute (4) Aortic stenosis: Status: Acute (5) History of colpocleisis: POD 0 As per Professional Healthcare Representative. Status: Acute (6) Vaginal prolapse: Status: Acute Plan Full code SCD, Lovenox as per Professional Healthcare Representative Protonix as PUD PPx Diet to be advanced as per primary service Consult Attestations Medical Necessity Statement: As per primary team Time Spent in Patient Care: Greater than 35 minutes Coding Level of Care Code Acute Valet Parker for Chg Fwd Diagnoses Uncontrolled hypertension I10 History of heart artery stent Z95.5 History of MO (myocardial infarction) I25.2 Aortic stenosis I35.0 History of colpocleisis Z98.890; Z87.42 Vaginal prolapse N81.10
[2021-11-25] MEDS: carvedilol 3.125 mg Tablet PO ×2 (14:09→20:11)
[2021-11-25] MEDS: cloNIDine 0.1 mg Tablet PO ×2 (14:10→15:50)
[2021-11-25 14:18] LABS: Troponin(5th) Baseline 53 ng/L (0-10)
--- NOTE | 2021-11-25 14:32 | SUR.PHASEI ---
PT DOZING WITH NO COMPLAINT, PT IN WAITING ROOM UPDATED PT IS STABLE, WITH ELEVATED BP, PT GIVEN HOME DOSAGE OF PO BP MEDS AND WILL GO TO FLOOR WHEN HER BP IS LOWER AND THAT SHE IS COMFORTABLE AND SLEEPING, NO PROBLEMS OR COMPLAINTS VOICED. DR MULTANI AT BEDSIDE, VERBAL ORDERS TO GIVE IV CLONIDINE 50MCP IVP NOW FOR BP OF 199/85, BP TAKEN IN BOTH ARMS.
--- NOTE | 2021-11-25 14:55 | SUR.PHASEI ---
DR MULTANI NOTIFIED, WE ARE UNABLE TO GIVE IV CLONIDINE, ORDERS RECIEVED TO REPEAT IV VASOTEC 0.625 , ALSO PT TROPONIN LEVEL [address] MULTANI VERBALLY OVER THE PHONE. PT DENIES PAIN AND IS SLEEPING, BP REMAINS 199/71
--- NOTE | 2021-11-25 15:09 | PM.MISC ---
Miscellaneous Note Note: Doctor Cabrera consulted regarding CP and hypertension. Oral medications ordered with little change in BP. Another dose of 0.625 mg enalaprilat administered. Patient pain controlled. Initial troponin elevated. Doctor Cabrera following troponins, recommends admission to OB while awaiting f/u troponins. Some vaginal bleeding/clots noted in PACU. Surgeon notified.
--- NOTE | 2021-11-25 15:19 | SUR.PHASEI ---
1515 BP SLIGHTLY IIMPROVED, PT REPOSITIONED TO RT SIDE, PT NOW WITH VAGINAL DRAINAGE, LARGE AMT RED GRAINAGE YOHAN PAD SOAKED WITH 2 CLOTS APPROX GOLF BALL SIZE NOTED, DR CHAPPELL AT BEDSIDE AND AWARE. PT DENIES VAGINAL PAIN, AND CHEST PAIN , ONLY LOW BACK PAIN, PT STATES THIS IS CHRONIC PAIN AN REFUSED FURTHER PAIN MEDS AT THIS TIME, LAB HERE FOR BLOOD DRAW. AND DR MULTANI AT BEDSIDE WELL
--- NOTE | 2021-11-25 15:32 | SUR.PHASEI ---
PT RESTING QUIETLY ON RT SIDE, YOHAN PAD WITH SMALL AMT DRAINAGE, DR CHAPPELL AWARE OF PREVIOUS CLOTS AND DRAINAGE, DR CHAPPELL TALKED WITH THE AND UPDATED HIM , PT HR 60-65 MONITOR SR WITH BBB ,RARE UINIFOCAL PVC AND OCC EARLY BEAT NOTED AND PRINTED TO CHART EARLIER AND REMAIN UNCHANGED. BP NOW 187/57
[2021-11-25] MEDS: hydroCHLOROthiazide 25 mg Tablet PO (15:53)
--- NOTE | 2021-11-25 16:23 | SUR.PHASEI ---
PT STATES PAIN TO BACK IS BETTER NOW, SEE MORPHINE GIVEN EARLIER, SEE PO MEDS GIVEN PER DR GAUTHIER'S ORDER, YOHAN CARE GIVEN, PT OB PAD 60 % SATURATED WITH QUARTER SIZE CLOT NOTED CLEAN CHUX AND YOHAN PAD AND LINEN CHANGE DONE, PT BP BETTER NOW, WILL CALL REPORT TO FLOOR.
[2021-11-25 16:31] LABS: Troponin 5 2HR 61.22 ng/L (0-10)
[2021-11-25 16:33] LABS: Troponin 5 2HR Delta 8.22 ABS# (0-10)
--- NOTE | 2021-11-25 16:48 | ANE.PACU2 ---
Inpatient post-anesthesia follow up: Airway intact: Yes Vital signs: Temperature 98.8 F Pulse Rate 70 Respiratory Rate 17 Blood Pressure 167/77 Pulse Oximetry 94 Oxygen Delivery Me thod Nasal Cannula Oxygen Flow Rate 3 Fraction of Inspir ed Oxygen Hydration adequate: Yes Nausea and vomiting: No Pain level: 2 Mental status: Baseline
[2021-11-25] MEDS: ketorolac 30 mg/mL INJ IVP ×2 (17:32→22:06)
--- NOTE | 2021-11-25 17:35 | SUR.PHASEI ---
4834 PT SLEEPS IF NOT DISTURBED, AWAKES EASILY, DENIES PAIN AND ANY CHEST PAIN OR DISCOMFORT, AND NAUSEA, PT WANTS HER TO GO HOME BEFORE DARK, UPDATED AND BACK TO PACU TO SEE PT, TO WALK TO FLOOR WITH RN TO SEE WHERE OB IS LOCATED SO HE CAN FIND HIS WAY TOMORROW. PT STABLE BP WITHING LIMITS FOR DISCHARGE, DR RANGEL TOLENTINO WITH PT GONG TO FLOOR AND WITH SECOND TROPONIN LEVEL. PT TO FLOOR PER CART AWAKE ALERT AND TALKATIVE, HANDOFF AT BEDSIDE WITH NURSES, PT WITH YOHAN PAD SATURATED AND ANOTHER GOLF BALL SIZE CLOT. NURSES INFORMED THAT DR CHAPPELL AWARE AND EXPECTS THIS, THEY WILL CHECK WITH DR CHAPPELL AGAIN, PT VSS. ASSISTED TO BED WITH ASSIST OF 3 NURSES.
[2021-11-25 18:55] LABS: Alanine Aminotransferase 6 U/L (0-33); Albumin Level 4.1 g/dL (3.5-5.2); Alkaline Phosphatase 79 IU/L (35-105); Aspartate Amino Transferase 13 U/L (0-32); Blood Urea Nitrogen 31 mg/dL (8-23); Calcium 8.8 mg/dL (8.5-10.5); Carbon Dioxide 21 mmol/L (22-29); Chloride 98 mmol/L (98-107); Glucose 140 mg/dL (65-115); Osmolality Calculated 285 mOsm/kg (285-295); Sodium 133 mmol/L (136-145); Total Bilirubin 0.5 mg/dL (0.15-1.2); Total Protein 7.1 g/dL (6.6-8.7)
[2021-11-25 18:58] LABS: Anion Gap 18.5 (5-19); Creatinine Clr Calc Pharmacy 28.7524; Potassium 4.5 mmol/L (3.5-5.1)
--- NOTE | 2021-11-25 19:40 | PC.NURSE ---
Report called to Angie on med-surg at 0739. Angie states room is being cleaned now and will be ready for patient in 20-30 minutes.
[2021-11-25 19:41] LABS: Troponin 5 6HR 55.04 ng/L (0-10)
[2021-11-25 19:42] LABS: Troponin 5 6HR Delta 2.04 ng/L (0-12)
[2021-11-25] MEDS: gabapentin 100 mg Capsule PO (20:09)
[2021-11-25] MEDS: docusate sodium 100 mg Capsule PO (20:09)
[2021-11-25] MEDS: tamsulosin 0.4 mg Capsule PO (20:09)
--- NOTE | 2021-11-25 20:18 | PC.NURSE ---
Patient transported to [facility] via bed.
--- NOTE | 2021-11-25 21:07 | PC.NURSE ---
This RN had not seen any clots at 1900 but received a call from KEHINDE Adams on med-surg that patient had passed the equivalent of 3 golf ball sized clots. This nurse called Dr Michael to make him aware. Received orders to keep pad on patient. This nurse relayed message to KEHINDE Adams.
--- NOTE | 2021-11-25 21:09 | PC.NURSE ---
This RN performed abdias care. Large clot noted approx baseball size. Call placed to OB to get report on pt bleeding if normal post op. Shantel reported to this RN that Dr. Michael is aware of pt postop bleeding and she did have golf ball sized clots. Per Dr. Michael place a pad under patient and continue to monitor.
[2021-11-25] MEDS: dextrose 5%-lactated ringers 1,000 ML 125 ML IV (22:05)
[2021-11-26 01:20] VITALS: BP 127/75; PULSE 55; RESP 16; TEMP 36.6; O2SAT 100
[2021-11-26 02:52] LABS: Basophils % 0.2 %; Eosinophils % 0.1 %; Hematocrit 28.7 % (37.0-47.0); Hemoglobin 9.5 g/dL (11.5-15.3); Lymphocytes # 0.8 10^3/uL (0.8-4.8); Lymphocytes % 9.3 %; Mean Corpuscular HGB Conc 33.1 g/dL (30.0-36.0); Mean Corpuscular Hemoglobin 32.4 pg (28.0-34.0); Mean Platelet Volume 10.8 fL (7.4-10.4); Monocytes # 0.7 10^3/uL (0.2-0.9); Neutrophils # 7.43 10^3/uL (1.8-7.7); Neutrophils % 82.1 %; Nucleated Red Blood Cells % 0 %; Platelet Count 161 10^3/cmm (130-400); Red Blood Count 2.93 10^6/uL (4.1-5.3); Red Cell Distribution Width 12.6 % (12.1-15.1); White Blood Count 9.1 10^3/uL (4.0-10.0)
[2021-11-26 03:17] LABS: Alanine Aminotransferase < 5 U/L (0-33); Alkaline Phosphatase 55 IU/L (35-105); Anion Gap 14.1 (5-19); Aspartate Amino Transferase 7 U/L (0-32); Blood Urea Nitrogen 31 mg/dL (8-23); Calcium 8.1 mg/dL (8.5-10.5); Carbon Dioxide 23 mmol/L (22-29); Chloride 101 mmol/L (98-107); Cholesterol 148 mg/dL (0-200); Creatinine Clr Calc Pharmacy 26.6986; Globulin 2.2 g/dL (1.3-4.6); Glucose 153 mg/dL (65-115); HDL Cholesterol 37 mg/dL (60-100); LDL Cholesterol Calculated 79 mg/dL (50-129); Osmolality Calculated 286 mOsm/kg (285-295); Potassium 5.1 mmol/L (3.5-5.1); Sodium 133 mmol/L (136-145); Total Bilirubin 0.6 mg/dL (0.15-1.2); Total Protein 5.2 g/dL (6.6-8.7); Triglycerides 158 mg/dL (0-150); VLDL Cholestrol Calculation 32 mg/dL (0-30)
[2021-11-26 04:00] VITALS: BP 127/59; PULSE 45; RESP 16; TEMP 36.7; O2SAT 100
[2021-11-26 04:54] LABS: Hematocrit 29.2 % (37.0-47.0); Hemoglobin 9.7 g/dL (11.5-15.3); Mean Corpuscular HGB Conc 33.2 g/dL (30.0-36.0); Mean Corpuscular Hemoglobin 32.6 pg (28.0-34.0); Mean Platelet Volume 11.2 fL (7.4-10.4); Platelet Count 179 10^3/cmm (130-400); Red Blood Count 2.98 10^6/uL (4.1-5.3); Red Cell Distribution Width 12.8 % (12.1-15.1); White Blood Count 9.5 10^3/uL (4.0-10.0)
[2021-11-26] MEDS: ketorolac 30 mg/mL INJ IVP ×2 (04:57→10:26)
[2021-11-26] MEDS: dextrose 5%-lactated ringers 1,000 ML 125 ML IV (04:57)
[2021-11-26 07:10] VITALS: BP 142/51; PULSE 67; RESP 16; TEMP 36.7; O2SAT 95
--- NOTE | 2021-11-26 10:04 | PM.OBGYDC ---
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 Date of Admission: 11/25/21 12:14 Date of Discharge: 11/26/21 Attending Provider at Admission: Heldaio Michael MD Attending Provider at Discharge: Heladio Michael MD Primary Care Provider: Doe Bui MD Diagnoses at Discharge Discharge Diagnosis (1) Uncontrolled hypertension: Status: Acute (2) History of heart artery stent: Status: Acute Permanent problem details: 2018 after heart attack (3) History of [place] (myocardial infarction): Status: Acute Permanent problem details: 2017--had coronary artery stent placed (4) Aortic stenosis: Status: Acute (5) History of colpocleisis: Status: Acute (6) Vaginal prolapse: Status: Acute Permanent problem details: 09/30/2021--grade 3-4 cystocele, grade 3 vault prolapse, grade 1 rectocele Reason for Visit Reason for Visit: N81.10 Cystocele, unspecified Hospital Course Hospital Course Mrs. Chris 81-year-old female with a history of complete vaginal prolapse. Admitted for colpocleisis and single incision mid urethral sling. The procedures were performed without complication. Postop at the PACU unit, the patient started complaining with chest pain and with elevated blood pressures. Internal medicine hospitalist was consulted. She was transferred to the [facility] and postop overnight observation was uneventful. She is afebrile and hemodynamically stable postoperative day 1. Tolerating diet well. Ambulating without difficulty. Adequate urine output. Pain well under control. Physical Exam Narrative: GA: Alert and oriented ?3. HEENT: WNL. Heart: Regular rate and rhythm. Lungs: Clear to auscultation bilaterally. Abdomen: Bowel sounds present, nontender PROP AND EFFECTS DESIGNER: spotting bleeding. Extremities: No edema, no cyanosis, no calves pain. Urinary Catheter Management: Lim: Cath Placed During This Visit: yes Urinary Catheter Date of Insertion: 11/25/21 Urinary Catheter Time of Insertion: 11:02 History History History 2 Term 2 Miscarriages/Ectopic 0 0 Living Children 1 Discharge Data Studies Completed and Pending Pending at discharge Category Date Time Status ES surgery / GI images Routine Exams 11/25/21 10:22 Taken Laboratory Results WBC 9.5 10^3/uL (4.0-10.0) 11/26/21 04:21 RBC 2.98 10^6/uL (4.1-5.3) L 11/26/21 04:21 Hgb 9.7 g/dL (11.5-15.3) L 11/26/21 04:21 Hct 29.2 % (37.0-47.0) L 11/26/21 04:21 MCV 98.0 fl (81-99) 11/26/21 04:21 MCH 32.6 pg (28.0-34.0) 11/26/21 04:21 MCHC 33.2 g/dL (30.0-36.0) 11/26/21 04:21 RDW 12.8 % (12.1-15.1) 11/26/21 04:21 Plt Count 179 10^3/cmm (130-400) 11/26/21 04:21 MPV 11.2 fL (7.4-10.4) H 11/26/21 04:21 Neut % (Auto) 82.1 % 11/26/21 02: Lymph % (Auto) 9.3 % 11/26/21 02: [place] % (Auto) 8.0 % 11/26/21 02: Eos % (Auto) 0.1 % 11/26/21 02: Baso % (Auto) 0.2 % 11/26/21: Neut # (Auto) 7.43 10^3/uL (1.8-7.7) 11/26/21 02: Lymph # (Auto) 0.8 10^3/uL (0.8-4.8) 11/26/21 02: [place] # (Auto) 0.7 10^3/uL (0.2-0.9) 11/26/21 02: Eos # (Auto) 0.0 10^3/uL (0.0-0.8) 11/26/21: Baso # (Auto) 0.0 10^3/uL (0.0-0.1) 11/26/21: Nucleated RBC % (auto) 0 % 11/26/21: Nucleated RBCs # 0.0 /100WBC 11/26/21 02: Sodium 133 mmol/L (136-145) L 11/26/21: Potassium 5.1 mmol/L (3.5-5.1) 11/26/21 02:28 Chloride 101 mmol/L (98-107) 11/26/21 02:28 Carbon Dioxide 23 mmol/L (22-29) 11/26/21 02:28 Anion Gap 14.1 (5-19) 11/26/21 02:28 BUN 31 mg/dL (8-23) H 11/26/21 02:28 Creatinine 1.4 mg/dL (0.5-0.9) H 11/26/21 02:28 GFR Calculation Not Reportable 11/26/21 02:28 Glucose 153 mg/dL (65-115) H 11/26/21 02:28 Calculated Osmolality 286 mOsm/kg (285-295) 11/26/21 02:28 Calcium 8.1 mg/dL (8.5-10.5) L 11/26/21 02:28 Total Bilirubin 0.6 mg/dL (0.15-1.2) 11/26/21 02:28 AST 7 U/L (0-32) 11/26/21 02:28 ALT < 5 U/L (0-33) 11/26/21 02:28 Alkaline Phosphatase 55 IU/L (35-105) 11/26/21 02:28 Troponin T Baseline 53 ng/L (0-10) H 11/25/21 13:23 Troponin T 120 Minute 61.22 ng/L (0-10) H 11/25/21 15:13 Delta Troponin T 8.22 ABS# (0-10) 11/25/21 15:13 Troponin T Hi Sens 6Hr 55.04 ng/L (0-10) H 11/25/21 19:18 Troponin T Hi Sens 6Hr Delta 2.04 ng/L (0-12) 11/25/21 19:18 Total Protein 5.2 g/dL (6.6-8.7) L D 11/26/21 02:28 Albumin 3.0 g/dL (3.5-5.2) L 11/26/21 02:28 Globulin 2.2 g/dL (1.3-4.6) 11/26/21 02:28 Triglycerides 158 mg/dL (0-150) H 11/26/21 02:28 Cholesterol 148 mg/dL (0-200) 11/26/21 02:28 LDL Cholesterol, Calc 79 mg/dL (50-129) 11/26/21 02:28 Total VLDL Cholesterol 32 mg/dL (0-30) H 11/26/21 02:28 HDL Cholesterol 37 mg/dL (60-100) L 11/26/21 02:28 Cholesterol/HDL Ratio 4.00 mg/dL (0.0-4.40) 11/26/21 02:28 Blood Type A Positive 11/25/21 08:12 Rho(D) Type Positive 11/25/21 08:12 Antibody Screen Negative 11/25/21 08:12 Vitals Last Vital Signs Temp 98.1 F 11/26/21 07:10 Pulse 67 11/26/21 07:10 Resp 16 11/26/21 07:10 BP 142/51 11/26/21 07:10 Pulse Ox 95 11/26/21 07:10 Discharge Plan Discharge Patient Disposition: Home Condition: Stable Prescriptions: New hydrocodone-acetaminophen 5-325 mg tablet 1 tab PO Q4H PRN (Reason: pain) Qty: 10 0RF ferrous sulfate [Iron (ferrous sulfate)] 325 mg (65 mg iron) tablet 325 mg PO BID Qty: 30 0RF acetaminophen 325 mg capsule 325 mg PO Q4H PRN (Reason: fever or postop pain) Qty: 60 0RF docusate sodium [Colace] 100 mg capsule 100 mg PO BID Qty: 60 0RF ibuprofen 800 mg tablet 800 mg PO TID PRN (Reason: pain) Qty: 60 0RF Continued magnesium 250 mg tablet 250 mg PO DAILY 0RF clonidine HCl 0.1 mg tablet 0.1 mg PO DAILY 0RF tamsulosin 0.4 mg capsule 0.4 mg PO BID Qty: 30 2RF gabapentin 100 mg capsule 100 mg PO BID Qty: 60 0RF levothyroxine 75 mcg capsule 75 mcg PO DAILY 0RF aspirin 325 mg tablet 325 mg PO DAILY 0RF hydrocodone-acetaminophen 10-325 mg tablet 1 tab PO Q6H PRN (Reason: Pain) 0RF torsemide 5 mg tablet 5 mg PO DAILY 0RF valsartan 160 mg tablet 160 mg PO BID Qty: 60 3RF Rx Instructions: Replaces telmisartan hydrochlorothiazide 25 mg tablet 25 mg PO DAILY Qty: 90 0RF isosorbide mononitrate 60 mg Tablet Extended Release 24 Hr 60 mg PO DAILY 0RF felodipine 10 mg tablet extended release 24 hr 5 mg PO DAILY MDD see pharmacy comment 0RF krill oil 500 mg capsule 1,000 mg PO DAILY 0RF multivitamin Tablet 1 tab PO DAILY 0RF carvedilol 3.125 mg tablet 3.125 mg PO BID 0RF potassium chloride 20 mEq Tablet Extended Release 20 meq PO DAILY MDD see pharmacy comment 0RF Discharge Orders: Discharge Order (Routine); Ordered 11/26/21 Ordered By: Heladio Michael Discharge Diet: Usual diet Discharge Activity: Limit activity as instructed Patient Instructions: Opioid Safety, Colpocleisis (GEN), Bladder Sling for Women (GEN) Activity Restrictions/Additional Instructions: 1. Please call [facility] clinic on next working day to make your post-operative appointment in 2 weeks. 2. Please stay home until you come back to the clinic on first post-operative check up. 3. Please follow instructions on your medications CAREFULLY. 4. If you have abdominal incision, do not cover it unless dressing is necessary because of drainage. OK to shower, but avoid bath. Leave steri-strips until they fall off. If they are still on one week after surgery, you may remove them. 5. If you had vaginal surgery or vaginal repair, Dr. Michael may instruct you to take SITZ bath. 6. Yellow, blood tinged odorous vaginal discharge is usually normal after hysterectomy or vaginal surgeries. 7. No sexual intercourse, tampons, or douches until you are completely released from the post-operative care. 8. Avoid constipation by eating right and maybe using some Metamucil or Milk of Magnesia. 9. All prescription refills are given during the working hours. Please do no wait till it runs out. Call the clinic at [phone] before your medication runs out. The clinic will get in touch with your doctor to prescribe medications if necessary. 10. Please remain within 40 mile radius from our hospital because emergencies do happen now and then during the post-operative period. 11. If you have stairs at home, take one step at a time slowly and minimize the number of trips. It helps to stay in one floor for the next few days. No lifting except what you can lift by one hand until you are released from the post-operative care. 12. Driving is discouraged until you are well healed. It may be 3-4 weeks before you feel strong enough to drive. You should be able to turn and look through the rear window without pain and you should be able to push the brake pedal very hard without pain before you drive. No fast rules, but SAFETY should be your primary concern. DO NOT drive if you are on sedating medications such as narcotics. 13. Call the clinic (during working hours) to make urgent appointment or go to the Emergency room, if any of the following occurs: i. Vaginal bleeding becomes heavy, more than a period. ii. Incision becomes red and sore, or drains pus. iii. Your temperature is over 100.4 or you have chill. iv. IV site becomes red and swollen (a little ``knot?? is usually OK) v. Persistent nausea and vomiting vi. Persistent constipation or diarrhea vii. Rash or allergic reaction to medications. 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
[2021-11-26] MEDS: potassium chloride ER 10 mEq Tablet 20 MEQ PO (10:18)
[2021-11-26 10:19] VITALS: BP 142/51
[2021-11-26] MEDS: losartan 50 mg Tablet PO (10:19)
[2021-11-26] MEDS: carvedilol 3.125 mg Tablet PO (10:19)
[2021-11-26] MEDS: cloNIDine 0.1 mg Tablet PO (10:19)
[2021-11-26] MEDS: docusate sodium 100 mg Capsule PO (10:19)
[2021-11-26] MEDS: hydroCHLOROthiazide 25 mg Tablet PO (10:20)
[2021-11-26] MEDS: isosorbide mononitrate ER 60 mg Tablet PO (10:20)
[2021-11-26] MEDS: TORSEmide 20 mg Tablet 5 MG PO (10:20)
[2021-11-26] MEDS: gabapentin 100 mg Capsule PO (10:22)
[2021-11-26] MEDS: aspirin 325 mg Tablet PO (10:22)
[2021-11-26] MEDS: multivitamin therapeutic Tablet 1 TAB PO (10:22)
[2021-11-26] MEDS: levothyroxine 75 mcg Tablet PO (10:23)
[2021-11-26] MEDS: tamsulosin 0.4 mg Capsule PO (10:27)
--- NOTE | 2021-11-26 11:21 | PC.CHAP ---
Pastoral Care Encounter/Spiritual Assessment Type of Contact [] Declined map editor visit [] Patient/Family/Request visit [] Outpatient visit [] Follow-up visit [] Physician referral [] Code/Alert [x] Routine visit [] Staff referral [] Actively dying [] Patient sleeping [] Family support [] [] Out of room [] Palliative care [] [x] Receiving care in room [] Pre-surgical visit [] Trauma [] Long length of stay [] ICU visit [] Other: Relational/Emotional Strength [x] Patient feels connected with others/family/visitors/staff [] Distress [] Loneliness/isolation [] Abandonment Spirituality of Patient [x] Person of Radha [] Attends Zoroastrian of their Radha [x] Believes in Prayer [] Reads Bible or Episcopalian materials [] There are Spiritual issues to be addressed Electric Motors 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 Interventions [x] Prayer [x] Active listening [x] Non-anxious presence [x] Spiritual/emotional support [] Crisis/trauma care [x] Spiritual counseling [] Bereavement support [] Provided bereavement packet [] Provided Bible/devotional materials [] Provided toy/stuffed animal, coloring book to patient or family member [] Provided Communion [] Anointing/[place] [] Salvation [x] Completed spiritual assessment [] Other: Impact on Illness or Injury [] Angry [] Fearful [] Anxious [] Often cries [] Exhaustion [] Unable to work [] Unable to attend religion [] Unable to walk/stand [] Unable to read [] Unable to drive [] Unable to eat/drink [] Unable to sleep [] Unable to be with family [] Patient intubated [] Other: Summary doing fine feels good and will be goiung home soon Time spent with patient 10 mins
[2021-11-26 11:22] VITALS: BP 129/56; PULSE 54; RESP 16; TEMP 36.4; O2SAT 91
[2021-11-26 12:00] VITALS: BP 129/56; PULSE 54; RESP 16; TEMP 36.4; O2SAT 91
--- NOTE | 2021-11-26 12:00 | PM.PN ---
Subjective Subjective: No acute events overnight. Patient blood pressure a lot better controlled. Denies any further chest pain. Family at bedside. Denies any nausea, vomiting, headache. As per nurse plan is to discharge from primary team. Awaiting voiding trial. Vitals/I&O/Wt Last Vital Signs Temp 97.6 F 11/26/21 11:22 Pulse 54 L 11/26/21 11:22 Resp 16 11/26/21 11:22 BP 129/56 11/26/21 11:22 Pulse Ox 91 11/26/21 11:22 11/25/21 11/26/21 11/26/21 22:59 06:59 14:59 Intake Total 858.333 / 1058.333 720 / 720 Output Total 500 / 920 Balance -500 / -720 858.333 / 138.333 720 / 720 Physical Exam Narrative: General: No acute distress, AO x3, HEENT: PERRLA, pupils bilaterally equal and reactive Chest: Normal vesicular breath sounds, no added sounds, equal good air entry bilaterally CVS: S1-S2 regular, ESM at aortic region, no tachycardia, no gallops, no rubs Abdomen: Soft, nontender, no organomegaly, bowel sounds present Neuro: No focal deficits, no facial deformity, AO x3, power 5/5 in all limbs Urinary Catheter Management: Lim: Cath Placed During This Visit: yes Urinary Catheter Date of Insertion: 11/25/21 Urinary Catheter Time of Insertion: 11:02 Data : 11/26/21 04:21 11/26/21 02:28 A&P Assessment and plan (1) Uncontrolled hypertension: Most likely 2/2 not taking oral meds. Takes Coreg 3.125 BID, Clonidine 0.1 mg PO daily, feldopine 5 mg po QD, HTCZ 25 mg PO QD, Imdur 60 mg PO QD, Valsartan 160 mg PO BID Blood pressure a lot better. Goal BP less than 140/90 mmhg. Continue with home medications. Status: Acute (2) History of heart artery stent: Cycle troponin negative. C/w ASA, statin. A1c 5.1, lipid panel appreciated. Last Stress test 03/17 negative for Ischemia. ECHO done 03/17 shows EF of 40%, GDD I, Mod , Status: Acute (3) History of [place] (myocardial infarction): Status: Acute (4) Aortic stenosis: Status: Acute (5) History of colpocleisis: POD 0 As per Blanking Machine Operator. Status: Acute (6) Vaginal prolapse: Status: Acute Plan Patient can be discharged as per primary service. She is to continue taking her antihypertensives as before. She is to follow-up with her outpatient graduate teaching assistant within the next 1 month and a primary care provider within next 1 week for repeat CBC. Attestations Medical Necessity Statement*: As per primary team Time Spent in Patient Care: 16 - 35 minutes Coding Level of Care Code Acute Prenatal Teacher for g Fwd Diagnoses Uncontrolled hypertension I10 History of heart artery stent Z95.5 History of [place] (myocardial infarction) I25.2 Aortic stenosis I35.0 History of colpocleisis Z98.890; Z87.42 Vaginal prolapse N81.10
== END 2021-11-26 12:00 | disposition home or self-care (01) ==
LOC: OBGYN 12:18 → MEDSURG 21:01
PROVIDERS: Anesthesiology; Student in an Organized Health Care Education/Training Program; Admitting Provider Obstetrics & Gynecology; PCP Family Medicine; Visit Provider Obstetrics & Gynecology
PROC: (CPT 57120; principal; 2021-11-25 08:50)
PROC: (CPT 57288; 2021-11-25 08:50)
PROC: 0TJB8ZZ Inspection of Bladder, Via Natural or Artificial Opening Endoscopic (ICD-10-PCS; CPT 52000; 2021-11-25 08:50)
DX: N81.10 Cystocele, unspecified (principal); R32 Unspecified urinary incontinence; I25.10 Atherosclerotic heart disease of native coronary artery without angina pectoris; I11.0 Hypertensive heart disease with heart failure; I50.9 Heart failure, unspecified; I25.2 Old myocardial infarction; Z82.49 Family history of ischemic heart disease and other diseases of the circulatory system; Z80.3 Family history of malignant neoplasm of breast
CPT/HCPCS: 57120; 57288; 36415; 80048; 80053; 80061; 84484; 85025; 85027; 86850; 86900; 93005; C1713; G0378; J0330; J1100; J1650; J1885; J2270; J2405; J2704; J3010; J3490; J7030; J7040

== ENCOUNTER 2021-12-01 04:07 | Emergency (ER) | payer MEDICARE, OTHER, SELFPAY ==
[2021-12-01 04:15] VITALS: BMI 24.1
[2021-12-01 04:20] VITALS: BP 185/65; PULSE 55; RESP 16; TEMP 37; O2SAT 95
--- NOTE | 2021-12-01 04:31 | ECG_ITS ---
[facility] Test Date: 2021-12-01 Pat Name: Kati Chris Department: Room: Gender: Female Lead Person: : 1940 Requested By: Grant Stauffer Order Number: [id number] Betty MD: Edson Ahumada M.D. Measurements Intervals [place] Rate: 52 P: 38 SC: 144 QRS: -59 QRSD: 173 T: 77 QT: 530 QTc: 496 Interpretive Statements SINUS BRADYCARDIA LEFT AXIS DEVIATION [QRS AXIS < -30] LEFT BUNDLE BRANCH BLOCK [120+ ms QRS DURATION, 80+ ms Q/S IN V1/V2, 85+ ms R IN I/aVL/V5/V6] Compared to ECG 11/25/2021 12:28:59 Sinus rhythm no longer present Electronically Signed On 12-01-2021 17:54:50 CDT by Edson Ahumada M.D. [id number]
--- NOTE | 2021-12-01 04:33 | W.ED.GENADLT ---
Documented by User: Grant Stauffer MD 12/14/21 00:17 HPI - General Adult General: Chief complaint: General Medical Stated complaint: High BP\Feels Faint Time Seen by Provider: 12/01/21 04:32 History of Present Illness: Ms. Chris is a 81-year-old lady with history of hypertension, hyperlipidemia, aortic stenosis, CAD with history of DE, history of PCI presenting to the emergency department due to unwell feeling. She underwent single incision urethral sling for vaginal prolapse with urinary incontinence on 11/25 and reportedly tolerated the procedure well. She woke up at approximately 2 AM and got up and sat in her chair watching TV. At approximately 3 AM she had a sudden onset abnormal feeling like she was going to . It was not quite presyncopal in nature, she endorses feeling like she was going to collapse in on herself. At that time she noted blood pressure to be greater than 200 systolic. She took clonidine however symptoms persisted. She also subsequently developed aching in the middle of her chest and later radiation to left arm. Overall intensity symptoms was not present was severe. Course is now improved. No other specific changes in health, exacerbating, or alleviating factors identified. Radiation: extremity Severity: severe Quality: aching Associated symptoms: Reports other Review of Systems General: Reports: 10 or more systems reviewed and unremarkable except in HPI and below PFSH ED PFSH: Medical History Chronic low back pain Has had recent back surgery Coronary artery disease History of DE (myocardial infarction) 2018--had coronary artery stent placed Hypertension Chronic hypertension diagnosed at the age of 31. Follows up with cardiology Dr. Castellanos as well as her primary care provider. No pertinent past medical history Denies diabetes, asthma, seizures, DVT/PE PCP: Dr. Bui Vaginal prolapse 09/30/2021--grade 3-4 cystocele, grade 3 vault prolapse, grade 1 rectocele Surgical History History of back surgery March 2021--performed by Dr. Nunez at [facility] [place]. History of heart artery stent 2018 after heart attack History of tubal ligation In her mid 30s---done through supra umbilical minilaparotomy incision S/P hysterectomy Vaginal hysterectomy for prolapse performed by Dr. George in 2018. Her ovaries were not removed. Family History Mother Heart disease Hypertension Colon cancer diagnosed in her late 60s Daughter Heart disease Family/Other Breast cancer maternal aunt, age at diagnosis unknown Social History Smoking and tobacco status: never smoked Physical Exam Const: COMMON NORMALS: alert GENERAL APPEARANCE: cooperative and well developed HENMT: COMMON NORMALS: normocephalic and atraumatic HEAD & SCALP: normocephalic and atraumatic Eye: COMMON NORMALS: conjunctivae normal CONJUNCTIVA: Yes conjunctivae normal SCLERA: sclerae normal Neck/C-Spine: COMMON NORMALS: supple GENERAL: Yes trachea midline Resp: COMMON NORMALS: normal respiratory effort and clear to auscultation bilaterally EFFORT & INSPECTION: Yes able to speak in complete sentences AUSCULTATION: clear to auscultation bilaterally Cardio: COMMON NORMALS: regular rate and regular rhythm RATE: regular rate RHYTHM: regular rhythm GI: COMMON NORMALS: Soft to palpation PALPATION: Yes Soft to palpation and No Tenderness to palpation present (GI) PERCUSSION: normal to percussion Extremity: GENERAL: Yes normal exam except as noted and No edema Neuro: COMMON NORMALS: moves all extremities SENSORIUM/ORIENTATION: Yes alert and No Orientation impaired Psych: COMMON NORMALS: mental status grossly normal and Normal thought process present THOUGHT PROCESS: Normal thought process present Course ED course: - Patient was seen and evaluated by me at bedside - Patient placed on cardiac monitors, IV access obtained - Initial evaluation notable for exam as above - Labs and xrays personally interpreted by me. EKG #bradycardia with left bundle branch, no STEMI. -Fluids given - Labs notable for no leukocytosis, macrocytic anemia. Metabolic end with evidence of dehydration. Initial troponin elevated above his baseline, BNP elevated. Repeat troponin pending. Procalcitonin negative. - Imaging notable for CT head negative for acute intracranial pathology. No lobar consolidation or pneumothorax -Patient care handed off to Dr. Arrington end completion of laboratory studies and reassessment of patient condition. Vital Signs: Vital signs: Vital Signs Temperature 97.9 F 12/01/21 07:42 Pulse Rate 81 12/01/21 07:42 Respiratory Rate 18 12/01/21 07:42 Blood Pressure 155/37 12/01/21 07:42 Pulse Oximetry 96 12/01/21 07:42 [facility] - General Adult Medical Records I reviewed the patient's medical records. Lab Data I reviewed the patient's lab results. : 12/01/21 04:40 12/01/21 04:40 Radiology Impressions Chest X-Ray 12/01/21 04:46 IMPRESSION: No acute cardiopulmonary abnormality. Head CT 12/01/21 04:46 IMPRESSION: No acute intracranial abnormality. Laboratory Results WBC 7.1 10^3/uL (4.0-10.0) 12/01/21 04:40 RBC 2.57 10^6/uL (4.1-5.3) L 12/01/21 04:40 Hgb 8.4 g/dL (11.5-15.3) L 12/01/21 04:40 Hct 25.6 % (37.0-47.0) L 12/01/21 04:40 MCV 99.6 fl (81-99) H 12/01/21 04:40 MCH 32.7 pg (28.0-34.0) 12/01/21 04:40 MCHC 32.8 g/dL (30.0-36.0) 12/01/21 04:40 RDW 12.6 % (12.1-15.1) 12/01/21 04:40 Plt Count 206 10^3/cmm (130-400) 12/01/21 04:40 MPV 10.7 fL (7.4-10.4) H 12/01/21 04:40 Neut % (Auto) 64.1 % 12/01/21 04:40 Lymph % (Auto) 21.9 % 12/01/21 04:40 Zavala % (Auto) 8.7 % 12/01/21 04:40 Eos % (Auto) 4.4 % 12/01/21 04:40 Baso % (Auto) 0.8 % 12/01/21 04:40 Neut # (Auto) 4.54 10^3/uL (1.8-7.7) 12/01/21 04:40 Lymph # (Auto) 1.6 10^3/uL (0.8-4.8) 12/01/21 04:40 Zavala # (Auto) 0.6 10^3/uL (0.2-0.9) 12/01/21 04:40 Eos # (Auto) 0.3 10^3/uL (0.0-0.8) 12/01/21 04:40 Baso # (Auto) 0.1 10^3/uL (0.0-0.1) 12/01/21 04:40 Nucleated RBC % (auto) 0 % 12/01/21 04:40 Nucleated RBCs # 0.0 /100WBC 12/01/21 04:40 Sodium 128 mmol/L (136-145) L 12/01/21 04:40 Potassium 4.7 mmol/L (3.5-5.1) 12/01/21 04:40 Chloride 93 mmol/L (98-107) L 12/01/21 04:40 Carbon Dioxide 26 mmol/L (22-29) 12/01/21 04:40 Anion Gap 13.7 (5-19) 12/01/21 04:40 BUN 29 mg/dL (8-23) H 12/01/21 04:40 Creatinine 1.3 mg/dL (0.5-0.9) H 12/01/21 04:40 GFR Calculation Not Reportable 12/01/21 04:40 Glucose 118 mg/dL (65-115) H 12/01/21 04:40 Calculated Osmolality 273 mOsm/kg (285-295) L 12/01/21 04:40 Lactate 1.4 mmol/L (0.5-2.2) 12/01/21 06:00 Calcium 8.5 mg/dL (8.5-10.5) 12/01/21 04:40 Magnesium 1.7 mg/dL (1.7-2.3) 12/01/21 04:40 Total Bilirubin 0.4 mg/dL (0.15-1.2) 12/01/21 04:40 AST 10 U/L (0-32) 12/01/21 04:40 ALT < 5 U/L (0-33) 12/01/21 04:40 Alkaline Phosphatase 80 IU/L (35-105) 12/01/21 04:40 Troponin T Baseline 84 ng/L (0-10) H 12/01/21 04:40 Troponin T 120 Minute 84.51 ng/L (0-10) H 12/01/21 06:00 Delta Troponin T 0.51 ABS# (0-10) 12/01/21 06:00 C-Reactive Protein 4.4 mg/L (0.0-4.9) 12/01/21 04:40 NT-Pro-B Natriuret Pep 3688 pg/mL (0-450) H 12/01/21 04:40 Total Protein 6.2 g/dL (6.6-8.7) L 12/01/21 04:40 Albumin 3.5 g/dL (3.5-5.2) 12/01/21 04:40 Globulin 2.7 g/dL (1.3-4.6) 12/01/21 04:40 Procalcitonin 0.09 ng/mL (0-0.5) 12/01/21 04:40 Discharge Plan Discharge Patient Disposition: Home Clinical Impression: Uncontrolled hypertension, Aortic stenosis Condition: Stable Prescriptions: New clonidine 0.1 mg/24 hr patch weekly 1 patch transdermal .weekly 28 Days Qty: 4 0RF Rx Instructions: take in place of the oral clonidine. DO NOT take oral clonidine while using patch. Changed felodipine 10 mg tablet extended release 24 hr 10 mg PO DAILY MDD see pharmacy comment Qty: 0 0RF No Action magnesium 250 mg tablet 250 mg PO DAILY 0RF clonidine HCl 0.1 mg tablet 0.1 mg PO DAILY 0RF tamsulosin 0.4 mg capsule 0.4 mg PO BID Qty: 30 2RF gabapentin 100 mg capsule 100 mg PO BID Qty: 60 0RF levothyroxine 75 mcg capsule 75 mcg PO DAILY 0RF aspirin 325 mg tablet 325 mg PO DAILY 0RF hydrocodone-acetaminophen 10-325 mg tablet 1 tab PO Q6H PRN (Reason: Pain) 0RF torsemide 5 mg tablet 5 mg PO DAILY 0RF valsartan 160 mg tablet 160 mg PO BID Qty: 60 3RF Rx Instructions: Replaces telmisartan hydrochlorothiazide 25 mg tablet 25 mg PO DAILY Qty: 90 0RF isosorbide mononitrate 60 mg Tablet Extended Release 24 Hr 60 mg PO DAILY 0RF krill oil 500 mg capsule 1,000 mg PO DAILY 0RF multivitamin Tablet 1 tab PO DAILY 0RF carvedilol 3.125 mg tablet 3.125 mg PO BID 0RF potassium chloride 20 mEq Tablet Extended Release 20 meq PO DAILY MDD see pharmacy comment 0RF acetaminophen 325 mg capsule 325 mg PO Q4H PRN (Reason: fever or postop pain) Qty: 60 0RF ibuprofen 800 mg tablet 800 mg PO TID PRN (Reason: pain) Qty: 60 0RF Colace 100 mg capsule 100 mg PO BID Qty: 60 0RF hydrocodone-acetaminophen 5-325 mg tablet 1 tab PO Q4H PRN (Reason: pain) Qty: 10 0RF Iron (ferrous sulfate) 325 mg (65 mg iron) tablet 325 mg PO BID Qty: 30 0RF Discharge Orders: Discharge ED (Routine); Ordered 12/01/21 Ordered By: Sukumar Arrington Referrals: Doe Bui MD [Primary Care Provider] - Discharge Diet: Usual diet Discharge Activity: Increase activity as tolerated Patient Instructions: Opioid Safety Activity Restrictions/Additional Instructions: This management make arrangements for an echocardiogram and follow-up with cardiology. Return if you have further problems. Sign Out Sign Out Data: Patient Sign Out occurred on 12/01/21 at 06:30. Patient's care was discussed, and care was transferred from to Sukumar Arrington DO. Coding Level of Care Code ED Protector Plate Attacher for Chg Fwd Exam Comprehensive Documented by User: Sukumar Arrington DO 12/01/21 07:47 HPI - General Adult General: Chief complaint: General Medical Stated complaint: High BP\Feels Faint Time Seen by Provider: 12/01/21 04:32 History of Present Illness: Onset (ago): minute(s) PFSH ED PFSH: Medical History Chronic low back pain Has had recent back surgery Coronary artery disease History of DE (myocardial infarction) 2017--had coronary artery stent placed Hypertension Chronic hypertension diagnosed at the age of 31. Follows up with cardiology Dr. Castellanos as well as her primary care provider. No pertinent past medical history Denies diabetes, asthma, seizures, DVT/PE PCP: Dr. Bui Vaginal prolapse 09/30/2021--grade 3-4 cystocele, grade 3 vault prolapse, grade 1 rectocele Surgical History History of back surgery March 2021--performed by Dr. Nunez at [facility] [place]. History of heart artery stent 2017 after heart attack History of tubal ligation In her mid 30s---done through supra umbilical minilaparotomy incision S/P hysterectomy Vaginal hysterectomy for prolapse performed by Dr. George in 2018. Her ovaries were not removed. Family History Mother Heart disease Hypertension Colon cancer diagnosed in her late 60s Daughter Heart disease Family/Other Breast cancer maternal aunt, age at diagnosis unknown Social History Smoking and tobacco status: never smoked Course Vital Signs: Vital signs: Vital Signs Temperature 97.9 F 12/01/21 07:42 Pulse Rate 81 12/01/21 07:42 Respiratory Rate 18 12/01/21 07:42 Blood Pressure 155/37 12/01/21 07:42 Pulse Oximetry 96 12/01/21 07:42 MDM - General Adult Medical Decision Making Care assumed at change of shift from Dr. Ochoa. Patient is feeling much better she wishes to go home. She did not really have a syncopal episode although she may have had a presyncopal episode this little bit difficult to discern in discussing with her. I think it is important for her to have a follow-up echocardiogram to reassess her aortic stenosis. Additionally will change her clonidine to a 0.1 mg weekly patch to try to get away from rebound hypertension was using pills once a day. We will also increase her felodipine to 10 mg daily. we will set her up for an outpatient echocardiogram and have her follow-up with cardiology for her blood pressure and the results of the echocardiogram. Lab Data : 12/01/21 04:40 12/01/21 04:40 Radiology Impressions Chest X-Ray 12/01/21 04:46 IMPRESSION: No acute cardiopulmonary abnormality. Head CT 12/01/21 04:46
--- NOTE | 2021-12-01 04:46 | XRR_ITS ---
PROCEDURE INFORMATION: Exam: XR Chest Exam date and time: 12/01/2021 5:02 AM Age: 81 years old Clinical indication: Pain; Chest pressure; Additional info: Chest pain TECHNIQUE: Imaging protocol: XR of the chest. Views: 1 view. COMPARISON: CR XR chest 1V portable [id number] 11/22/2020 8:41 PM FINDINGS: Lungs: Unremarkable. No consolidation. Pleural spaces: Unremarkable. No pleural effusion. No pneumothorax. Heart/Mediastinum: Unremarkable. No cardiomegaly. Vasculature: The aorta is tortuous and calcified. Bones/joints: Degenerative changes throughout the spine. XR/XR chest 1V portable [id number] IMPRESSION: No acute cardiopulmonary abnormality.
--- NOTE | 2021-12-01 04:46 | CTR_ITS ---
PROCEDURE INFORMATION: Exam: CT Head Without Contrast Exam date and time: 12/01/2021 5:10 AM Age: 81 years old Clinical indication: Other: Presyncope TECHNIQUE: Imaging protocol: Computed tomography of the head without contrast. Radiation optimization: All CT scans at this facility use at least one of these dose optimization techniques: automated exposure control; mA and/or kV adjustment per patient size (includes targeted exams where dose is matched to clinical indication); or iterative reconstruction. COMPARISON: CT head wo con* [id number] 07/05/2019 12:05 AM RADIATION DOSE METRICS: Total DLP (mGy-cm): 869.97 FINDINGS: Brain: No evidence of intracranial hemorrhage, mass effect, midline shift or extra-axial fluid collections. Midline structures are normal. Chiu-white matter differentiation is normal. Cerebral ventricles: No ventriculomegaly. Paranasal sinuses: Mucosal thickening in the ethmoid and sphenoid sinuses. Mastoid air cells: Visualized mastoid air cells are well aerated. Orbital cavities: The patient has had bilateral lens replacement surgery. Bones/joints: Unremarkable. No acute fracture. Soft tissues: Unremarkable. Vasculature: Age appropriate atrophy and small vessel ischemic change. Carotid atherosclerotic calcification. CT/CT head wo con* [id number] IMPRESSION: No acute intracranial abnormality.
[2021-12-01 04:47] LABS: Basophils # 0.1 10^3/uL (0.0-0.1); Basophils % 0.8 %; Eosinophils # 0.3 10^3/uL (0.0-0.8); Eosinophils % 4.4 %; Hematocrit 25.6 % (37.0-47.0); Hemoglobin 8.4 g/dL (11.5-15.3); Lymphocytes # 1.6 10^3/uL (0.8-4.8); Lymphocytes % 21.9 %; Mean Corpuscular HGB Conc 32.8 g/dL (30.0-36.0); Mean Corpuscular Hemoglobin 32.7 pg (28.0-34.0); Mean Corpuscular Volume 99.6 fl (81-99); Mean Platelet Volume 10.7 fL (7.4-10.4); Monocytes # 0.6 10^3/uL (0.2-0.9); Monocytes % 8.7 %; Neutrophils # 4.54 10^3/uL (1.8-7.7); Neutrophils % 64.1 %; Nucleated Red Blood Cells % 0 %; Platelet Count 206 10^3/cmm (130-400); Red Blood Count 2.57 10^6/uL (4.1-5.3); Red Cell Distribution Width 12.6 % (12.1-15.1); White Blood Count 7.1 10^3/uL (4.0-10.0)
[2021-12-01 05:06] LABS: Troponin(5th) Baseline 84 ng/L (0-10)
[2021-12-01 05:13] LABS: NT Pro B Type Natriuretic Pept 3688 pg/mL (0-450); Procalcitonin 0.09 ng/mL (0-0.5)
[2021-12-01 05:24] LABS: Alanine Aminotransferase < 5 U/L (0-33); Albumin Level 3.5 g/dL (3.5-5.2); Alkaline Phosphatase 80 IU/L (35-105); Anion Gap 13.7 (5-19); Aspartate Amino Transferase 10 U/L (0-32); Blood Urea Nitrogen 29 mg/dL (8-23); C Reactive Protein 4.4 mg/L (0.0-4.9); Calcium 8.5 mg/dL (8.5-10.5); Carbon Dioxide 26 mmol/L (22-29); Chloride 93 mmol/L (98-107); Globulin 2.7 g/dL (1.3-4.6); Glucose 118 mg/dL (65-115); Magnesium 1.7 mg/dL (1.7-2.3); Osmolality Calculated 273 mOsm/kg (285-295); Potassium 4.7 mmol/L (3.5-5.1); Sodium 128 mmol/L (136-145); Total Bilirubin 0.4 mg/dL (0.15-1.2); Total Protein 6.2 g/dL (6.6-8.7)
[2021-12-01 05:26] LABS: Creatinine Clr Calc Pharmacy 28.7524
[2021-12-01 05:52] VITALS: BP 155/45; BP 157/47; BP 163/41
[2021-12-01 06:27] LABS: Lactate (Lactic Acid level) 1.4 mmol/L (0.5-2.2)
[2021-12-01 06:29] LABS: Troponin 5 2HR 84.51 ng/L (0-10)
[2021-12-01] MEDS: sodium chloride 0.9% 500 ML 999 ML IV (06:31)
--- NOTE | 2021-12-01 06:31 | ECG_ITS ---
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 Measurements Intervals [place] Rate: 56 P: 32 PA: 154 QRS: -52 QRSD: 173 T: 97 QT: 519 QTc: 501 Interpretive Statements SINUS BRADYCARDIA LEFT AXIS DEVIATION [QRS AXIS < -30] LEFT BUNDLE BRANCH BLOCK [120+ ms QRS DURATION, 80+ ms Q/S IN V1/V2, 85+ ms R IN I/aVL/V5/V6] Compared to ECG 12/01/2021 04:27:08 No significant changes Electronically Signed On 12-01-2021 18:11:21 CDT by Edson Ahumada M.D. [email or web address]
[2021-12-01 06:32] LABS: Troponin 5 2HR Delta 0.51 ABS# (0-10)
[2021-12-01 07:42] VITALS: BP 155/37; PULSE 81; RESP 18; TEMP 36.6; O2SAT 96
--- NOTE | 2021-12-01 11:44 | DCPLANNER ---
Addendum entered by Elisa Lundberg 03/12/22 14:52: Patient had a follow up with heart care - patient did attend appointment Patient had an echo scheduled - patient did attend appointment. Original Note: sales representative sales manager had message to schedule a follow up appointment for patient with cardiology. sales representative sales manager sent patients information to the front office staff at heart care. Patients information will be printed and reviewed. Clinic will call patient with appointment information. sales representative sales manager also had message to schedule an outpatient echo cardiogram for patient. sales representative sales manager faxed signed order to centralized scheduling, who will call patient with appointment information.
== END 2021-12-01 07:55 | disposition home or self-care (01) ==
PROVIDERS: Emergency Medicine; Emergency Provider Family Medicine; PCP Family Medicine
DX: I10 Essential (primary) hypertension (principal); I35.0 Nonrheumatic aortic (valve) stenosis; I25.10 Atherosclerotic heart disease of native coronary artery without angina pectoris; I25.2 Old myocardial infarction; Z79.82 Long term (current) use of aspirin
CPT/HCPCS: 70450; 71045; 80053; 83605; 83735; 83880; 84145; 84484; 85025; 86140; 93005; 96360; 99285; J7040

== ENCOUNTER → 2021-12-08 13:04 | Outpatient (BNVA) | payer MEDICARE, OTHER, SELFPAY | PROVIDERS: PCP Family Medicine; Visit Provider Nurse Practitioner Family | DX: I10 Essential (primary) hypertension (principal) | CPT/HCPCS: 99213 ==

== ENCOUNTER 2022-01-08 13:40 | Outpatient (CLI) | payer MEDICARE, OTHER, SELFPAY ==
--- NOTE | 2022-01-08 13:55 | USCV_ITS ---
Kati Chris Age: 81 Gender: F : 1940 Exam Date: 01/08/2022 14:35 Ordering Phys: Sukumar Arrington DO Technologist: BRIAN Exam Location: [facility] [place] Indication: chf. BP: 122 / 76 HR: 54 Rhythm: Sinus Technical Quality: MEASUREMENTS (Male / Female) Normal Values 2D ECHO LV Diastolic Diameter PLAX 4.6 cm 4.2 - 5.9 / 3.9 - 5.3 cm LV Systolic Diameter PLAX 3.2 cm IVS Diastolic Thickness 1.3 cm 0.6 - 1.0 / 0.6 - 0.9 cm IVS Systolic Thickness 1.5 cm LVPW Diastolic Thickness 1.8 cm 0.6 - 1.0 / 0.6 - 0.9 cm LVPW Systolic Thickness 2.2 cm LVOT Diameter 2.0 cm LV Ejection Fraction 2D Teich 58.4 % LV Ejection Fraction MOD 2C 57.7 % LV Ejection Fraction 2C AL 59.4 % RA Width 3.6 cm RA Height 5.0 cm Aorta at Sinotubular Diameter 2.4 cm M-MODE MV E Point Septal Separation 1.2 cm DOPPLER AV Peak Velocity 151.3 cm/s LVOT Peak Velocity 75.0 cm/s AV Area Cont Eq vti 1.6 cm squared AV Area Cont Eq pk 1.6 cm squared MV Area PHT 1.5 cm squared Mitral E to A Ratio 0.5 MV E' Velocity 35.0 cm/s Mitral E to MV E' Ratio 14.4 Mitral E to LV E' Lateral Ratio 12.5 Mitral E to LV E' Septal Ratio 17.1 TR Peak Velocity 289.7 cm/s TR Peak Gradient 33.6 mmHg Right Atrial Pressure 8.0 mmHg Pulmonary Artery Systolic Pressu 41.6 mmHg PV Peak Velocity 99.0 cm/s FINDINGS Left Ventricle Normal left ventricular size. LV systolic function is mild to moderately reduced with EF of 40%. Mild to moderate global hypokinesis. Grade 1 diastolic dysfunction Right Ventricle The right ventricle is normal in size and function. Right Atrium The right atrium is normal in size. Left Atrium The left atrium is normal in size. Mitral Valve Mitral valve is thickened without significant stenosis or prolapse. There is mild mitral regurgitation. Aortic Valve Aortic valve is thickened without significant stenosis. There is no aortic regurgitation. Tricuspid Valve Structurally normal tricuspid valve without significant stenosis. Mild tricuspid regurgitation. RVSP is 35-40mmHg. This is consistent with mild pulmonary hypertension Pulmonic Valve Not well visualized Pericardium Normal pericardium without effusion. Aorta Normal ascending aorta dimension. IVC CONCLUSIONS LV systolic function is mild to moderately reduced with EF of 40% Mild to moderate global hypokinesis. Mild mitral regurgitation Mild tricuspid regurgitation. Mild pulmonary hypertension Compared to prior echocardiogram from 03/11/2021, no significant changes are seen Edson Ahumada MD (Electronically Signed) Final Date: 09 January 2022 12:09 S
== END 2022-01-08 13:41 | disposition home or self-care (01) ==
PROVIDERS: PCP Family Medicine; Visit Provider Family Medicine
DX: I35.0 Nonrheumatic aortic (valve) stenosis (principal); I51.89 Other ill-defined heart diseases
CPT/HCPCS: 93306

== ENCOUNTER → 2022-03-04 10:27 | Outpatient (BNVA) | payer MEDICARE, OTHER, SELFPAY | PROVIDERS: PCP Family Medicine; Visit Provider Anesthesiology Pain Medicine | DX: G89.29 Other chronic pain (principal); M48.062 Spinal stenosis, lumbar region with neurogenic claudication; M47.816 Spondylosis without myelopathy or radiculopathy, lumbar region; M54.16 Radiculopathy, lumbar region; M41.9 Scoliosis, unspecified; M79.605 Pain in left leg; M79.604 Pain in right leg | CPT/HCPCS: 99214 ==

== ENCOUNTER 2022-03-12 11:13 | Outpatient (CLI) | payer MEDICARE, OTHER, SELFPAY ==
--- NOTE | 2022-03-12 11:38 | XR_ITS ---
WS: [id number] Left hip, 2 views, 03/12/2022 Clinical Data: Left hip pain Comparison: None. Findings: No fractures or dislocations are seen. No narrowing, sclerosis, cyst formation or fragmentation of le ft femoral head is seen. The left SI joint and pubic symphysis are normal. The soft tissues are not r emarkable. The adjacent pelvis is normal. XR/XR hip LT 2-3V wo/w pel* [id number] Impression: Negative left hip. Tonnis classification: grade 0: normal radiographs
== END 2022-03-12 11:14 | disposition home or self-care (01) ==
LOC: RAD 11:15
PROVIDERS: PCP Family Medicine; Visit Provider Family Medicine
DX: M25.552 Pain in left hip (principal)
CPT/HCPCS: 73502

== ENCOUNTER → 2022-04-01 11:36 | Outpatient (BNVA) | payer MEDICARE, OTHER, SELFPAY | PROVIDERS: PCP Family Medicine; Visit Provider Family Medicine | DX: R53.1 Weakness (principal); I50.9 Heart failure, unspecified; R53.81 Other malaise; R53.83 Other fatigue; Z51.81 Encounter for therapeutic drug level monitoring; E53.8 Deficiency of other specified B group vitamins; Z00.00 Encounter for general adult medical examination without abnormal findings | CPT/HCPCS: 80053; 82607; 83735; 83880; 84439; 84443; 85025; 86141 ==

== ENCOUNTER → 2022-04-19 13:15 | Outpatient (BNVA) | payer MEDICARE, OTHER, SELFPAY | PROVIDERS: PCP Family Medicine; Visit Provider Anesthesiology Pain Medicine | DX: M47.816 Spondylosis without myelopathy or radiculopathy, lumbar region (principal); M48.062 Spinal stenosis, lumbar region with neurogenic claudication | CPT/HCPCS: 64493; 64494; 64495 ==

== ENCOUNTER → 2022-05-05 11:45 | Outpatient (BNVA) | payer MEDICARE, OTHER, SELFPAY | PROVIDERS: PCP Family Medicine; Visit Provider Anesthesiology Pain Medicine | DX: G89.29 Other chronic pain (principal); M48.062 Spinal stenosis, lumbar region with neurogenic claudication; M47.816 Spondylosis without myelopathy or radiculopathy, lumbar region; M54.16 Radiculopathy, lumbar region; M41.9 Scoliosis, unspecified; M79.604 Pain in right leg; M79.605 Pain in left leg | CPT/HCPCS: 99214 ==

== ENCOUNTER → 2022-06-02 13:22 | Outpatient (BNVA) | payer MEDICARE, OTHER, SELFPAY | PROVIDERS: PCP Family Medicine; Visit Provider Anesthesiology Pain Medicine | DX: M47.816 Spondylosis without myelopathy or radiculopathy, lumbar region (principal); M48.062 Spinal stenosis, lumbar region with neurogenic claudication | CPT/HCPCS: 64635; 64636 ==

== ENCOUNTER 2022-08-31 11:20 | Outpatient (CLI) | payer MEDICARE, OTHER, SELFPAY ==
--- NOTE | 2022-08-31 11:31 | XRR_ITS ---
PROCEDURE INFORMATION: Exam: XR Cervical Spine Exam date and time: 08/31/2022 11:39 AM Age: 82 years old Clinical indication: Radicular pain (radiculopathy); Cervical region; Additional info: Cervical radiculopathy left TECHNIQUE: Imaging protocol: Radiologic exam of the cervical spine. Views: 2 or 3 views. COMPARISON: CT head wo con* [id number] 12/01/2021 5:10 AM FINDINGS: Bones/joints: No fracture, malalignment or acute abnormality is seen in the cervical spine. Chronic degenerative changes are present with disc space narrowing sclerosis and osteophytes especially at C4-C5, C5-C6 and C6-C7. Soft tissues: Unremarkable. XR/XR cervical spine 3V* [id number] IMPRESSION: 1. No acute abnormality. 2. Chronic degenerative disease especially from C4-C7.
--- NOTE | 2022-08-31 11:31 | XRR_ITS ---
PROCEDURE INFORMATION: Exam: XR Left Shoulder Exam date and time: 08/31/2022 11:39 AM Age: 82 years old Clinical indication: Pain; Shoulder; Left; Additional info: Left shoulder pain TECHNIQUE: Imaging protocol: Radiologic exam of the left shoulder. Views: 2 or more views. COMPARISON: CR (CHEST, ) 12/01/2021 5:02 AM FINDINGS: Bones/joints: No fracture or other acute bony abnormality. Mild degenerative changes are present with tiny osteophytes on the glenoid and humeral head. Soft tissues: Normal. XR/XR shoulder LT min 2V* [id number] IMPRESSION: Mild chronic degenerative disease. No acute abnormality.
== END 2022-08-31 11:21 | disposition home or self-care (01) ==
LOC: RAD 11:25
PROVIDERS: PCP Family Medicine; Visit Provider Family Medicine
DX: M54.12 Radiculopathy, cervical region (principal); M25.512 Pain in left shoulder; M25.78 Osteophyte, vertebrae; M50.321 Other cervical disc degeneration at C4-C5 level; G89.29 Other chronic pain; M47.816 Spondylosis without myelopathy or radiculopathy, lumbar region; M48.062 Spinal stenosis, lumbar region with neurogenic claudication; M54.16 Radiculopathy, lumbar region; M41.9 Scoliosis, unspecified; M53.3 Sacrococcygeal disorders, not elsewhere classified
CPT/HCPCS: 72040; 73030; 99214

== ENCOUNTER → 2022-09-16 14:04 | Outpatient (BNVA) | payer MEDICARE, OTHER, SELFPAY | PROVIDERS: PCP Family Medicine; Visit Provider Anesthesiology Pain Medicine | DX: M53.3 Sacrococcygeal disorders, not elsewhere classified (principal); M48.062 Spinal stenosis, lumbar region with neurogenic claudication | CPT/HCPCS: 20610; 27096; 77002; J1030; J3490 ==

== ENCOUNTER → 2022-10-06 11:22 | Outpatient (BNVA) | payer MEDICARE, OTHER, SELFPAY | PROVIDERS: PCP Family Medicine; Visit Provider Anesthesiology Pain Medicine | DX: G89.29 Other chronic pain (principal); M48.062 Spinal stenosis, lumbar region with neurogenic claudication; M47.816 Spondylosis without myelopathy or radiculopathy, lumbar region; M54.16 Radiculopathy, lumbar region; M41.9 Scoliosis, unspecified; M53.3 Sacrococcygeal disorders, not elsewhere classified | CPT/HCPCS: 99213 ==

== ENCOUNTER 2022-10-07 14:06 | Inpatient (IN) | payer MEDICARE, SELFPAY ==
[2022-10-07] VITALS (9 sets, daily range): BP systolic 141–183; BP diastolic 62–119; PULSE 55–86; RESP 15–20; TEMP 36.9; O2SAT 89–97
--- NOTE | 2022-10-07 17:09 | XRR_ITS ---
PROCEDURE INFORMATION: Exam: XR Chest Exam date and time: 10/07/2022 5:15 PM Age: 82 years old Clinical indication: Shortness of breath; Prior surgery; Additional info: Decreased spo2 TECHNIQUE: Imaging protocol: Radiologic exam of the chest. Views: 2 views. COMPARISON: CR (CHEST, ) 12/01/2021 5:02 AM FINDINGS: Lungs: Mild patchy infiltrate is seen right perihilar mid lung, appearing posteriorly on the lateral view, along with mild right middle lobe atelectasis and small amount patchy infiltrate. Findings are new from 12/01/2021 exam. Pleural spaces: Unremarkable. No pleural effusion. No pneumothorax. Heart/Mediastinum: Unremarkable. No cardiomegaly. Vasculature: Arteriosclerosis of the thoracic aorta. Bones/joints: Spondylotic change thoracic spine and postsurgical hardware within the visualized lumbar spine. XR/XR chest 2V* [id number] IMPRESSION: Mild patchy infiltrate with atelectasis right perihilar mid lung posteriorly and right middle lobe suggesting pneumonia on the right, for follow-up.
--- NOTE | 2022-10-07 17:48 | ED_ITS ---
HPI - Weakness General: Chief complaint: Weakness Stated complaint: Low O2 Time Seen by Provider: 10/07/22 17:39 Source: patient and family Mode of arrival: ambulatory Limitations: no limitations History of Present Illness: This patient was referred to the emergency department because of generalized we akness been present since over the weekend. She does not have any history of being exposed to any known infectious disease and has fully immunized against COVID. She states her spouse who is present has not been ill. She has had a dry cough and but just generalized malaise and weakness and not feeling like she wants to do anything. She is also a deep decreased appetite. She denies any nausea vomiting chest pain, known fevers, dysuria etc. She has a history of coronary artery disease had stents placed several years ago but has not had any ongoing chest pain and has not had any need for cardiology follow-up recently. No recent travel, tobacco use etc. She denies any focal weakness headache etc. She states she took a COVID test at home on Tuesday and it was negative. MD Complaint: generalized weakness Associated symptoms: Denies chest pain, chills, dysuria, easy bruising, fever(s), headache(s), nausea, syncope or vomiting Review of Systems Const: Reports: fatigue and malaise; Denies: fever(s) or chills Eyes: Denies: change in vision ENMT: Denies: throat pain, odynophagia, nasal discharge or nasal congestion Card: Denies: chest pain, palpitations, syncope or pre-syncope Resp: Reports: non-productive cough; Denies: dyspnea, productive cough or wheezing GI: Denies: abdominal pain, nausea, vomiting or diarrhea : Denies: flank pain, difficulty voiding, dysuria or urinary frequency Musc: Denies: neck pain, back pain, extremity pain or extremity swelling Skin/Breast: Denies: rash Neuro: Denies: headache(s), numbness in extremities, weakness in extremities, Slurred speech present, difficulty communicating thoughts or seizure-like activity Miller/Lymph: Denies: easy bruising or easy bleeding [facility] ED PFSH: Medical History Chronic low back pain Has had recent back surgery Coronary artery disease History of [place] (myocardial infarction) 2017--had coronary artery stent placed Hypertension Chronic hypertension diagnosed at the age of 31. Follows up with cardiology Dr. Castellanos as well as her primary care provider. No pertinent past medical history Denies diabetes, asthma, seizures, DVT/PE PCP: Dr. Bui Vaginal prolapse 09/30/2021--grade 3-4 cystocele, grade 3 vault prolapse, grade 1 rectocele Surgical History History of back surgery March 2021--[place]formed [place]. Nunez [place] [facility] [place] History of heart artery stent 2017 after heart attack History of tubal ligation In her mid 30s---done through supra umbilical minilaparotomy incision S/P hysterectomy Vaginal hysterectomy for prolapse performed by Dr. George in 2018. Her ovaries were not removed. Family History Mother Heart disease Hypertension Colon cancer diagnosed in her late 60s Daughter Heart disease Family/Other Breast cancer maternal aunt, age at diagnosis unknown Social History Smoking and tobacco status: never smoked Physical Exam Narrative: EXAM NARRATIVE: The patient is alert and able to communicate well in the goal-directed and fluent speech. She is slightly ill-appearing Const: COMMON NORMALS: no acute distress, average body habitus, patient oriented x3 and alert GENERAL APPEARANCE: cooperative HENMT: COMMON NORMALS: normocephalic, Normal nasal mucous membranes and turbinates present, moist oral mucous membranes and oropharynx normal HEAD & SCALP: normocephalic FACE & SINUS: normal facial exam NOSE: Normal nasal mucous membranes and turbinates present Eye: COMMON NORMALS: Equal, round and reactive pupils present, EOMs intact bilaterally and conjunctivae normal CONJUNCTIVA: Yes conjunctivae normal PUPIL: Yes Equal, round and reactive pupils present Neck/C-Spine: COMMON NORMALS: full ROM, no lymphadenopathy, no JVD and No carotid bruits Chest: COMMONS NORMALS: normal inspection of the chest and normal palpation of entire chest wall Resp: COMMON NORMALS: normal respiratory effort and No use of accessory muscles AUSCULTATION: crackles and diminished lung sounds Cardio: COMMON NORMALS: no JVD, regular rate, regular rhythm, No murmurs present (Cardio) and Peripheral pulses 2+ throughout RATE: regular rate RHYTHM: regular rhythm PERIPHERAL PULSES: Peripheral pulses 2+ throughout GI: COMMON NORMALS: Normal to inspection, nondistended, normoactive bowel sounds present, Soft to palpation, non-tender and no masses PALPATION: Yes Soft to palpation Back/Pelvis: COMMON NORMALS: thoracic and lumbar spine normal to inspection, no thoracic nor lumbar tenderness, thoraco-lumbar ROM normal and straight leg raise negative bilaterally Extremity: COMMON NORMALS: normal to inspection, full ROM, capillary refill normal, no calf tenderness and no pedal edema Neuro: COMMON NORMALS: patient oriented x3, moves all extremities, no focal motor deficits, no sensory deficits noted and deep tendon reflexes 2+ bilaterally SENSORIUM/ORIENTATION: Yes alert CRANIAL NERVES: Yes CN normal except as noted Psych: COMMON NORMALS: mental status grossly normal Skin: COMMON NORMALS: no rashes or lesions noted, no wounds, turgor normal and no jaundice GENERAL SKIN EXAM: no rashes or lesions noted and turgor normal Course Reevaluation(s): Reevaluation #1: Informed patient and spouse of her current findings and recommendations for inpatient treatment based upon her comorbidities and current acute illness. She voiced understanding and agreed to proceed. Time: 19:48 Consultations: Consultation #1: Discussed with Dr. Cheri carvalho hospitalist who agreed to admission. Time: 19:49 Vital Signs: Vital signs: Vital Signs Temperature 98.4 F 10/07/22 14:09 Pulse Rate 76 10/07/22 19:06 Respiratory Rate 17 10/07/22 19:06 Blood Pressure 145/62 10/07/22 19:06 Pulse Oximetry 96 10/07/22 19:06 Oxygen Delivery Me thod Nasal Cannula 10/07/22 19:06 Oxygen Flow Rate 3 10/07/22 19:06 Fraction of Inspir ed Oxygen 2 10/07/22 15:41 MDM - Weakness Medical Decision Making This patient who lives at home with her spouse has had dry cough generalized malaise and fatigue out any known fevers at home for the last several days. No known exposure to infectious disease. Has had decreased appetite without any nausea vomiting or diarrhea. Clinical evaluation revealed her to be in no acute distress but did have mild hypoxia on room air that easily corrected with nasal cannula. Additional work- up revealed evidence of hyponatremia, volume depletion, right middle lobe infiltrate on chest x-ray suggestive of pneumoniaHer curb 65 score gives her a moderate risk of 30-day mortality and consistent with likely candidate for inpatient treatment.. Medical Records I reviewed the patient's medical records. Lab Data I reviewed the patient's lab results. 10/07/22 17:45 10/07/22 17:45 Radiology Impressions Chest X-Ray 10/07/22 17:09 IMPRESSION: Mild patchy infiltrate with atelectasis right perihilar mid lung posteriorly and right middle lobe suggesting pneumonia on the right, for follow-up. Laboratory Results WBC 13.0 10^3/uL (4.0-10.0) H 10/07/22 17:45 RBC 3.90 10^6/uL (4.1-5.3) L 10/07/22 17:45 Hgb 12.3 g/dL (11.5-15.3) 10/07/22 17:45 Hct 39.1 % (37.0-47.0) 10/07/22 17:45 MCV 100.3 fl (81-99) H 10/07/22 17:45 MCH 31.5 pg (28.0-34.0) 10/07/22 17:45 MCHC 31.5 g/dL (30.0-36.0) 10/07/22 17:45 RDW 13.9 % (12.1-15.1) 10/07/22 17:45 Plt Count 243 10^3/cmm (130-400) 10/07/22 17:45 MPV 11.9 fL (7.4-10.4) H 10/07/22 17:45 Neut % (Auto) 76.1 % 10/07/22 17:45 Lymph % (Auto) 8.2 % 10/07/22 17:45 Dixon % (Auto) 13.6 % 10/07/22 17:45 Eos % (Auto) 0.4 % 10/07/22 17:45 Baso % (Auto) 0.9 % 10/07/22 17:45 Neut # (Auto) 9.85 10^3/uL (1.8-7.7) H 10/07/22 17:45 Lymph # (Auto) 1.1 10^3/uL (0.8-4.8) 10/07/22 17:45 Dixon # (Auto) 1.8 10^3/uL (0.2-0.9) H 10/07/22 17:45 Eos # (Auto) 0.1 10^3/uL (0.0-0.8) 10/07/22 17:45 Baso # (Auto) 0.1 10^3/uL (0.0-0.1) 10/07/22 17:45 Nucleated RBC % (auto) 0 % 10/07/22 17:45 Nucleated RBCs # 0.0 /100WBC 10/07/22 17:45 Sodium 126 mmol/L (136-145) L 10/07/22 17:45 Potassium 4.9 mmol/L (3.5-5.1) 10/07/22 17:45 Chloride 89 mmol/L (98-107) L 10/07/22 17:45 Carbon Dioxide 23 mmol/L (22-29) 10/07/22 17:45 Anion Gap 18.9 (5-19) 10/07/22 17:45 BUN 50 mg/dL (8-23) H 10/07/22 17:45 Creatinine 2.0 mg/dL (0.5-0.9) H 10/07/22 17:45 GFR Calculation Not Reportable 10/07/22 17:45 Glucose 125 mg/dL (65-115) H 10/07/22 17:45 Calculated Osmolality 277 mOsm/kg (285-295) L 10/07/22 17:45 Calcium 9.0 mg/dL (8.5-10.5) 10/07/22 17:45 Total Bilirubin 0.7 mg/dL (0.15-1.2) 10/07/22 17:45 AST 19 U/L (0-32) 10/07/22 17:45 ALT 8 U/L (0-33) 10/07/22 17:45 Alkaline Phosphatase 127 U/L (35-105) H 10/07/22 17:45 Troponin T Baseline 82 ng/L (0-10) H 10/07/22 17:45 Total Protein 8.1 g/dL (6.6-8.7) 10/07/22 17:45 Albumin 3.7 g/dL (3.5-5.2) 10/07/22 17:45 Globulin 4.4 g/dL (1.3-4.6) 10/07/22 17:45 Influenza Type A Ag negative (Negative) 10/07/22 18:07 Influenza Type B Ag negative (Negative) 10/07/22 18:07 SARS-CoV-2 Ag (Rapid) negative (Negative) 10/07/22 18:07 EKG Data EKG 1: I personally reviewed and interpreted this EKG as follows: Interpretation: Contemporaneous review of EKG reveals ventricular rate of 71 bpm. Normal IN interval, QRS durations prolonged QT intervals normal. No concordant or discordant changes suggestive of acute ischemia at this time. Left bundle branch block pattern has been present on prior EKGs. EKG 2: I personally reviewed and interpreted this EKG as follows: Interpretation: Contemporaneous review of second EKG this visit revealed reveals a ventricular rate of 71 bpm. She has a pattern consistent with a left bundle branch block pattern without any concordant or discordant changes suggestive of ischemia. Unchanged from prior tracing this visit. Discharge Plan Discharge Patient Disposition: Admitted As Inpatient Clinical Impression: Right middle lobe pneumonia, Hyponatremia, Volume depletion, Myocardial injury Condition: Stable Coding Level of Care Code ED [employer] Direction Specialist for Lawrence Begum
--- NOTE | 2022-10-07 17:51 | ECG_ITS ---
[facility] Test Date: 2022-10-07 Pat Name: Kati Chris Department: Room: Gender: Female Scarifier Operator: : 1940 Requested By: Carissa Morfin Order Number: [id number] Betty MD: Brian Ocasio M.D. Measurements Intervals [place] Rate: 71 P: 60 [place]: 166 QRS: -19 QRSD: 163 T: 79 QT: 414 QTc: 451 Interpretive Statements SINUS RHYTHM LEFT BUNDLE BRANCH BLOCK [120+ ms QRS DURATION, 80+ ms Q/S IN V1/V2, 85+ ms R IN I/aVL/V5/V6] Compared to ECG 12/01/2021 07:32:46 Sinus bradycardia no longer present Left-axis deviation no longer present Electronically Signed On 10-07-2022 21:10:03 CDT by Brian Ocasio M.D. [id number]
[2022-10-07 18:06] LABS: Basophils # 0.1 10^3/uL (0.0-0.1); Basophils % 0.9 %; Eosinophils # 0.1 10^3/uL (0.0-0.8); Eosinophils % 0.4 %; Hematocrit 39.1 % (37.0-47.0); Hemoglobin 12.3 g/dL (11.5-15.3); Lymphocytes # 1.1 10^3/uL (0.8-4.8); Lymphocytes % 8.2 %; Mean Corpuscular HGB Conc 31.5 g/dL (30.0-36.0); Mean Corpuscular Hemoglobin 31.5 pg (28.0-34.0); Mean Corpuscular Volume 100.3 fl (81-99); Mean Platelet Volume 11.9 fL (7.4-10.4); Monocytes # 1.8 10^3/uL (0.2-0.9); Monocytes % 13.6 %; Neutrophils # 9.85 10^3/uL (1.8-7.7); Neutrophils % 76.1 %; Nucleated Red Blood Cells % 0 %; Platelet Count 243 10^3/cmm (130-400); Red Cell Distribution Width 13.9 % (12.1-15.1)
[2022-10-07 18:38] LABS: Troponin(5th) Baseline 82 ng/L (0-10)
[2022-10-07 18:39] LABS: Influenza A by IFA negative (Negative); Influenza B by IFA negative (Negative)
[2022-10-07 18:40] LABS: SARS Covid-2 Antigen negative (Negative)
[2022-10-07 18:41] LABS: Alanine Aminotransferase 8 U/L (0-33); Albumin Level 3.7 g/dL (3.5-5.2); Alkaline Phosphatase 127 U/L (35-105); Anion Gap 18.9 (5-19); Aspartate Amino Transferase 19 U/L (0-32); Blood Urea Nitrogen 50 mg/dL (8-23); Carbon Dioxide 23 mmol/L (22-29); Chloride 89 mmol/L (98-107); Globulin 4.4 g/dL (1.3-4.6); Glucose 125 mg/dL (65-115); Osmolality Calculated 277 mOsm/kg (285-295); Potassium 4.9 mmol/L (3.5-5.1); Sodium 126 mmol/L (136-145); Total Bilirubin 0.7 mg/dL (0.15-1.2); Total Protein 8.1 g/dL (6.6-8.7)
[2022-10-07] MEDS: lactated ringers 1,000 ML 999 ML IV (19:06)
--- NOTE | 2022-10-07 19:10 | ECG_ITS ---
[facility] Test Date: 2022-10-07 Pat Name: Kati Chris Department: Room: Gender: Female Training Development Specialist: : 1940 Requested By: Carissa Morfin Order Number: [id number] Betty MD: Brian Ocasio M.D. Measurements Intervals [place] Rate: 71 P: 64 [place]: 169 QRS: -27 QRSD: 162 T: 77 QT: 415 QTc: 452 Interpretive Statements SINUS RHYTHM LEFT BUNDLE BRANCH BLOCK [120+ ms QRS DURATION, 80+ ms Q/S IN V1/V2, 85+ ms R IN I/aVL/V5/V6] Compared to ECG 10/07/2022 17:51:22 No significant changes Electronically Signed On 10-07-2022 21:15:17 CDT by Brian Ocasio M.D. [id number]
[2022-10-07] MEDS: cefTRIAXone 2,000 MG in sodium chloride 0.9% (plus) 50 ML 100 MG IV (19:55)
[2022-10-07 20:03] LABS: Add Urine Microscopic? NO; Charge for UA Resulting for Rev
--- NOTE | 2022-10-07 20:05 | P.HP_ITS ---
Providers/Chief Complaint Primary Care Provider: Doe Bui MD Chief Complaint: Low O2 History of Present Illness Kati Chris is a 82 year old female with past medical history of CAD, [place], hypertension, chronic low back pain presented to the hospital because of generalized weakness that have been going on for the last 5 days. She reports a dry cough and is not expectorating any sputum at this time but just feels generally weak and tired. She is fatigued to the point that she does want to do anything. She has loss of appetite as well. She took a COVID test at home on Tuesday and it was negative. She has been vaccinated for COVID in the past. No recent ill contacts. at home is also not ill. Denies nausea, vomiting, chest pain, chills, dysuria, fever, headache.She says she has never used oxygen before. Last time she had a resp illness, it was probably 10 years ago. She is a bit worried about her condition. Course: 145/62, respirate 17, pulse 76, temperature 98.4, saturating 96% on 3 L nasal cannula. Patient given a dose of ceftriaxone and azithromycin. Patient did have slight hypoxia on room air and was placed on nasal cannula. WBC 13, hemoglobin 12.3, platelet 243, sodium 126, potassium 4.9, CO2 23, creatinine 2.0, influenza and COVID-negative. Chest x-ray was done which shows mild patchy infiltrate with atelectasis right perihilar midlung posteriorly and right middle lobe suggesting pneumonia on the right for follow-up. EKG shows a left bundle branch block which is also present on prior EKGs. No changes suggestive of ischemia at this time. Baseline troponin 82. Medications/Allergies Home Medications Medication Instructions Recorded Confirmed Last Taken Type clonidine HCl 0.1 mg tablet 0.1 mg PO DAILY 02/23/21 10/07/22 11/24/21 History carvedilol 3.125 mg tablet 3.125 mg PO BID 04/26/21 10/07/22 11/24/21 History aspirin 325 mg tablet 325 mg PO DAILY 10/13/21 10/07/22 11/17/21 History krill oil 500 mg capsule 1,000 mg PO DAILY 11/10/21 10/07/22 Unknown History multivitamin 1 tab PO DAILY 11/10/21 10/07/22 Unknown History cyanocobalamin (vitamin B-12) 1,000 mcg IM .monthly 4 weeks #1 mL 04/01/22 10/07/22 Unknown Rx 1,000 mcg/mL injection solution torsemide 5 mg tablet 5 mg PO DAILY #90 tabs 07/02/22 10/07/22 Unknown Rx valsartan 160 mg tablet See Rx Instructions .Route 08/04/22 10/07/22 Unknown Rx .COMPLEX #180 tabs potassium chloride 10 mEq 10 meq PO DAILY #90 tabs 08/24/22 10/07/22 Unknown Rx tablet,extended release levothyroxine 88 mcg tablet 88 mcg PO DAILY #90 tabs 09/02/22 10/07/22 Unknown Rx felodipine 10 mg tablet,extended See Rx Instructions .Route 09/20/22 10/07/22 Unknown Rx release 24 hr .COMPLEX #90 tabs gabapentin 100 mg capsule See Rx Instructions .Route 09/20/22 10/07/22 Unknown Rx .COMPLEX #180 caps isosorbide mononitrate 60 mg See Rx Instructions .Route 09/20/22 10/07/22 Unknown Rx tablet,extended release 24 hr .COMPLEX #90 tabs magnesium oxide 400 mg (241.3 mg See Rx Instructions .Route 09/20/22 10/07/22 Unknown Rx magnesium) tablet .COMPLEX #180 tabs tamsulosin 0.4 mg capsule See Rx Instructions .Route 09/20/22 10/07/22 Unknown Rx .COMPLEX #180 caps hydrocodone 10 mg-acetaminophen 1 tab PO Q4H PRN Pain 30 days #180 09/27/22 10/07/22 Unknown Rx 325 mg tablet tabs hydrochlorothiazide 25 mg tablet See Rx Instructions .Route 09/29/22 10/07/22 Unknown Rx .COMPLEX #90 tabs Allergies Allergy/AdvReac Type Severity Reaction Status Date / Time clonidine Allergy Severe swollen Verified 10/07/22 14:16 face with patches prazosin Allergy Severe ALGY-Difficulty Verified 10/07/22 14:16 Breathing hydralazine Allergy Unknown Verified 10/07/22 14:16 PFSH Acute PFSH: Medical History Chronic low back pain Has had recent back surgery Coronary artery disease History of [place] (myocardial infarction) 2017--had coronary artery stent placed Hypertension Chronic hypertension diagnosed at the age of 31. Follows up with cardiology Dr. Castellanos as well as her primary care provider. No pertinent past medical history Denies diabetes, asthma, seizures, DVT/PE PCP: Dr. Bui Vaginal prolapse 09/30/2021--grade 3-4 cystocele, grade 3 vault prolapse, grade 1 rectocele Surgical History History of [place] March 2021[place] [facility] [place] of heart artery stent 2017 after heart attack History of tubal ligation In her mid 30s---done through supra umbilical minilaparotomy incision S/P hysterectomy Vaginal hysterectomy for prolapse performed by Dr. George in 2018. Her ovaries were not removed. Family History Mother Heart disease Hypertension Colon cancer diagnosed in her late 60s Daughter Heart disease Family/Other Breast cancer maternal aunt, age at diagnosis unknown Social History Smoking and tobacco status: never smoked Vitals/I&O/Wt Last Vital Signs Temp 98.4 F 10/07/22 14:09 Pulse 86 10/07/22 20:00 Resp 16 10/07/22 20:00 BP 183/71 10/07/22 20:00 Pulse Ox 93 10/07/22 20:00 O2 Del Method Nasal Cannula 10/07/22 20:00 O2 Flow Rate 3.5 10/07/22 20:00 FiO2 2 10/07/22 15:41 Weight last 48 hrs Weight 55.338 kg Physical Exam Narrative: General: Alert oriented x3, patient seen laying in bed appearing comfortable at this time on 2 L nasal cannula. HEENT: Normocephalic, atraumatic, EOMI, breathing nasal cannula, no acute respiratory distress Cardio: Regular rate rhythm, normal S1-S2 Respiratory: Gross ronchi b/l lung schaeffer, diminished at bases, no crackles GI: Abdomen soft, nontender,bowel sounds + Extremities: Trace edema bilateral lower extremities. Data 10/07/22 17:45 10/07/22 17:45 A&P Assessment and plan (1) Right middle lobe pneumonia: (2) Hyponatremia: (3) Volume depletion: (4) Fatigue: (5) Hypoxia: (6) Congestive heart failure: (7) Weakness: (8) History of heart artery stent: (9) History of [place] (myocardial infarction): (10) Coronary artery disease: Qualifiers: Associated angina: without angina Coronary Disease-Associated Artery/Lesion type: [place] artery [place] vs. transplanted heart: [place] heart Qualified Code(s): I25.10 - Atherosclerotic heart disease of [place] coronary artery without angina pectoris Plan #Community-acquired pneumonia #Generalized weakness secondary to above #Acute hypoxia requiring supplemental oxygen #Hyponatremia #DAXA on CKD, baseline creatinine 1.1-1.3 #History of CAD, history of [place] #Hypothyroidism #Hypertension #Chronic systolic congestive heart failure with EF of 40% ? Continue aspirin, Coreg, gabapentin, Imdur, hydrocodone, levothyroxine - ns @ 75 cc/hr - Sputum culture Gram stain, blood cultures, bacterial antigen Legionella, Streptococcus ? Place on DuoNebs every 6 hours as needed ? Continue ceftriaxone and azithromycin ? Check TSH - Cautious use of IV fluids. Patient's EF is 40% from December 2021. ? Monitor for fluid overload ? I will hold clonidine at this time. ? Hold gabapentin ? Hold potassium ? Hold torsemide ? Continue valsartan 160 daily - I reviewed chest xray myself. reviewed all labs. Full code DVT prophylaxis: SCDs, heparin SQ twice daily Attestations Medical Necessity Statement*: Greater than 2 midnight stay for management of pneumonia Other Coding Information Focused coding review requested Diagnoses Right middle lobe pneumonia J18.9 Hyponatremia E87.1 Volume depletion E86.9 Fatigue R53.83 Hypoxia R09.02 Congestive heart failure I50.9 Weakness R53.1 History of heart artery stent Z95.5 History of [place] (myocardial infarction) I25.2 Coronary artery disease I25.10 Associated angina: without angina Coronary Disease-Associated Artery/Lesion type: [place] artery [place] vs. transplanted heart: [place] heart
[2022-10-07 20:10] LABS: Blood Urine Neg (Negative); Glucose Urine UA Norm (Normal); Ketones Urine Negative (Negative); Nitrate Urine Negative (Negative); Protein Urine Neg (Negative); Specific Gravity, Urine 1.015 (1.005-1.030); Urine Appearance Clear (CLEAR); Urine Color Yellow (Yellow); pH Urine 5 (5-7)
[2022-10-07 20:11] LABS: Troponin 5 2HR 70.59 ng/L (0-10); Troponin 5 2HR Delta -11.41 ABS# (0-10)
[2022-10-07 20:11] LABS: Bilirubin Urine Neg (Negative); Leukocyte Esterase Urine Negative (Negative); Urobilinogen Urine Neg (Negative)
[2022-10-07] MEDS: heparin 5,000 unit/mL INJ 1 mL 5000 UNIT SUBCUT (20:59)
[2022-10-07 21:37] LABS: Lactic Sepsis W/Reflex 1.6 mmol/L (0.5-2.2)
[2022-10-07 21:48] LABS: Procalcitonin 0.75 ng/mL (0-0.5)
[2022-10-07] MEDS: sodium chloride 0.9% 1,000 ML 75 ML IV (21:50)
[2022-10-07] MEDS: azithromycin 500 MG in sodium chloride 0.9% 250 ML 250 MG IV (21:50)
--- NOTE | 2022-10-07 23:19 | ECG_ITS ---
[facility] Test Date: 2022-10-07 Pat Name: Kati Chris Department: Room: 255 Gender: Female Med Surg Nurse: ULICES: 1940 Requested By: Carissa Morfin Order Number: [id number] Betty MD: Edson Ahumada M.D. Measurements Intervals [place] Rate: 70 P: 64 [place]: 178 QRS: -59 QRSD: 164 T: 75 QT: 434 QTc: 471 Interpretive Statements SINUS RHYTHM WITH OCCASIONAL SUPRAVENTRICULAR PREMATURE COMPLEXES LEFT AXIS DEVIATION [QRS AXIS < -30] LEFT BUNDLE BRANCH BLOCK [120+ ms QRS DURATION, 80+ ms Q/S IN V1/V2, 85+ ms R IN I/aVL/V5/V6] Compared to ECG 10/07/2022 19:15:00 Left-axis deviation now present Electronically Signed On 10-08-2022 13:55:03 CDT by Edson Ahumada M.D. [id number]
[2022-10-07 23:58] LABS: Troponin 5 6HR 67.31 ng/L (0-10)
[2022-10-08] VITALS (16 sets, daily range): BP systolic 116–168; BP diastolic 49–78; PULSE 57–89; RESP 15–20; TEMP 36.4–37.1; O2SAT 90–98
[2022-10-08 05:49] LABS: Basophils # 0.1 10^3/uL (0.0-0.1); Basophils % 0.7 %; Eosinophils # 0.1 10^3/uL (0.0-0.8); Hematocrit 38.7 % (37.0-47.0); Hemoglobin 12.7 g/dL (11.5-15.3); Lymphocytes # 1.4 10^3/uL (0.8-4.8); Lymphocytes % 10.6 %; Mean Corpuscular HGB Conc 32.8 g/dL (30.0-36.0); Mean Corpuscular Hemoglobin 32.6 pg (28.0-34.0); Mean Corpuscular Volume 99.5 fl (81-99); Mean Platelet Volume 12.1 fL (7.4-10.4); Monocytes # 1.7 10^3/uL (0.2-0.9); Monocytes % 12.8 %; Neutrophils # 9.96 10^3/uL (1.8-7.7); Neutrophils % 74.1 %; Nucleated Red Blood Cells % 0 %; Platelet Count 259 10^3/cmm (130-400); Red Blood Count 3.89 10^6/uL (4.1-5.3); Red Cell Distribution Width 13.8 % (12.1-15.1); White Blood Count 13.5 10^3/uL (4.0-10.0)
[2022-10-08] MEDS: heparin 5,000 unit/mL INJ 1 mL 5000 UNIT SUBCUT ×2 (09:32→20:17)
[2022-10-08] MEDS: pantoprazole DR 40 mg Tablet PO (09:33)
[2022-10-08] MEDS: levothyroxine 88 mcg Tablet PO (09:33)
[2022-10-08] MEDS: isosorbide mononitrate ER 60 mg Tablet PO (09:33)
[2022-10-08] MEDS: losartan 50 mg Tablet PO (09:34)
[2022-10-08] MEDS: aspirin 325 mg Tablet PO (09:34)
[2022-10-08] MEDS: carvedilol 3.125 mg Tablet PO ×2 (09:34→17:31)
[2022-10-08] MEDS: cefTRIAXone 1,000 MG in sodium chloride 0.9% (plus) 50 ML 100 MG IV (09:34)
[2022-10-08 09:45] LABS: Magnesium 2.4 mg/dL (1.7-2.3)
[2022-10-08 10:02] LABS: Anion Gap 15.5 (5-19); Blood Urea Nitrogen 41 mg/dL (8-23); Calcium 8.5 mg/dL (8.5-10.5); Carbon Dioxide 25 mmol/L (22-29); Chloride 92 mmol/L (98-107); Glucose 120 mg/dL (65-115); Osmolality Calculated 277 mOsm/kg (285-295); Potassium 4.5 mmol/L (3.5-5.1); Sodium 128 mmol/L (136-145)
[2022-10-08] MEDS: azithromycin 500 MG in sodium chloride 0.9% 250 ML 250 MG IV (10:54)
--- NOTE | 2022-10-08 11:00 | PC.CHAP ---
Pastoral Care Encounter/Spiritual Assessment Type of Contact [] Declined manager of sustainability visit [] Patient/Family/Request visit [] Outpatient visit [] Follow-up visit [] Physician referral [] Code/Alert [x] Routine visit [] Staff referral [] Actively dying [x] Patient sleeping [] Family support [] [] Out of room [] Palliative care [] [] Receiving care in room [] Pre-surgical visit [] Trauma [] Long length of stay [] ICU visit [] Other: Relational/Emotional Strength [] Patient feels connected with others/family/visitors/staff [] Distress [] Loneliness/isolation [] Abandonment Spirituality of Patient [] Person of Radha [] Attends Advent of their Radha [] Believes in Prayer [] Reads Bible or Buddhist materials [] There are Spiritual issues to be addressed Machine Setup Operator Interventions [] Prayer [] Active listening [] Non-anxious presence [] Spiritual/emotional support [] Crisis/trauma care [] Spiritual counseling [] Bereavement support [] Provided bereavement packet [] Provided Bible/devotional materials [] Provided toy/stuffed animal, coloring book to patient or family member [] Provided Communion [] Anointing/[place] [] Salvation [] Completed spiritual assessment [] Other: Impact on Illness or Injury [] Angry [] Fearful [] Anxious [] Often cries [] Exhaustion [] Unable to work [] Unable to attend sabianism [] Unable to walk/stand [] Unable to read [] Unable to drive [] Unable to eat/drink [] Unable to sleep [] Unable to be with family [] Patient intubated [] Other: Summary Time spent with patient
--- NOTE | 2022-10-08 13:58 | PM.PN ---
Subjective Subjective: Patient was seen this morning, with at bedside, she continues to feel weak fatigued and tired, has a poor appetite Vitals/I&O/Wt Last Vital Signs Temp 97.8 F 10/08/22 12:05 Pulse 66 10/08/22 12:05 Resp 15 10/08/22 12:05 BP 116/49 10/08/22 12:05 Pulse Ox 97 10/08/22 12:05 O2 Del Method Nasal Cannula 10/08/22 12:05 O2 Flow Rate 3 10/08/22 08:44 FiO2 2 10/07/22 15:41 10/07/22 10/08/22 10/08/22 22:59 06:59 14:59 Intake Total 1530 / 1530 490 / 2020 240 / 240 Output Total 800 / 800 500 / 500 Balance 1530 / 1530 -310 / 1220 -260 / -260 Weight last 48 hrs Weight 55.338 kg Physical Exam Const: COMMON NORMALS: no acute distress and patient oriented x3 Resp: COMMON NORMALS: normal respiratory effort, No retractions and No use of accessory muscles OTHER: Wheezing in all lung schaeffer Cardio: COMMON NORMALS: regular rate, regular rhythm, S1 normal heart sound present and S2 normal heart sound present RATE: regular rate RHYTHM: regular rhythm HEART SOUNDS: S1 normal heart sound present and S2 normal heart sound present GI: COMMON NORMALS: Normal to inspection, nondistended, normoactive bowel sounds present and non-tender Extremity: COMMON NORMALS: no calf tenderness Neuro: COMMON NORMALS: patient oriented x3 Psych: COMMON NORMALS: mental status grossly normal Urinary Catheter Management: Lim: Cath Placed During This Visit: yes Reason for Continuing Indwelling Catheter: Other Urinary Catheter Date of Insertion: 10/07/22 Urinary Catheter Time of Insertion: 21:15 Data 10/08/22 04:54 10/08/22 08:58 Micro: Microbiology 10/07/22 21:30 Blood Culture - Preliminary Blood SPECIMEN COLLECTED 10/07/22 21:30 Blood Culture - Preliminary Blood SPECIMEN COLLECTED A&P Assessment and plan (1) Right middle lobe pneumonia: (2) Hyponatremia: (3) Volume depletion: (4) Fatigue: (5) Hypoxia: (6) Congestive heart failure: (7) Weakness: (8) History of heart artery stent: (9) History of [place] (myocardial infarction): (10) Coronary artery disease: Qualifiers: Coronary Disease-Associated Artery/Lesion type: [place] artery [place] vs. transplanted heart: [place] heart Associated angina: without angina Qualified Code(s): I25.10 - Atherosclerotic heart disease of [place] coronary artery without angina pectoris (11) NSTEMI (non-ST elevated myocardial infarction): (12) Sepsis: Plan #Community-acquired pneumonia #Sepsis, sepsis markers, pneumonia, creatinine of 2, troponin of 82, failure as above, leukocytosis #Generalized weakness secondary to above #Acute hypoxia requiring supplemental oxygen #Hyponatremia #DAXA on CKD, baseline creatinine 1.1-1.3 #History of CAD, history of [place] #Hypothyroidism #Hypertension #Chronic systolic congestive heart failure with EF of 40% ? Continue aspirin, Coreg, gabapentin, Imdur, hydrocodone, levothyroxine -Continue normal saline at 75 cc an hour - Sputum culture Gram stain, blood cultures, bacterial antigen Legionella, Streptococcus ? Place on DuoNebs every 6 hours as needed ? Continue ceftriaxone and azithromycin - Cautious use of IV fluids. Patient's EF is 40% from December 2021. ? Monitor for fluid overload ? I will hold clonidine at this time. ? Hold gabapentin ? Hold potassium ? Hold torsemide ? Continue valsartan 160 daily -Monitor serum sodium every 4 hours -NSTEMI, likely type II, supply demand ischemia from pneumonia, monitor for chest pain, EKG/retromuscular telemetry monitoring Full code DVT prophylaxis: SCDs, heparin SQ twice daily Attestations Medical Necessity Statement*: Patient requires hospitalization, for acute respiratory failure secondary to pneumonia Diagnoses Right middle lobe pneumonia J18.9 Hyponatremia E87.1 Volume depletion E86.9 Fatigue R53.83 Hypoxia R09.02 Congestive heart failure I50.9 Weakness R53.1 History of heart artery stent Z95.5 History of [place] (myocardial infarction) I25.2 Coronary artery disease I25.10 Coronary Disease-Associated Artery/Lesion type: [place] artery [place] vs. transplanted heart: [place] heart Associated angina: without angina NSTEMI (non-ST elevated myocardial infarction) I21.4 Sepsis A41.9
[2022-10-08] MEDS: sodium chloride 0.9% 1,000 ML 75 ML IV (14:19)
[2022-10-08 14:23] LABS: Sodium 127 mmol/L (136-145)
[2022-10-09] VITALS (13 sets, daily range): BP systolic 159–185; BP diastolic 65–72; PULSE 54–76; RESP 14–21; TEMP 36.7–37.1; O2SAT 95–99
[2022-10-09] MEDS: sodium chloride 0.9% 1,000 ML 75 ML IV ×2 (02:52→18:08)
[2022-10-09 05:12] LABS: Anion Gap 15.6 (5-19); Basophils # 0.1 10^3/uL (0.0-0.1); Basophils % 0.5 %; Blood Urea Nitrogen 31 mg/dL (8-23); Calcium 8.3 mg/dL (8.5-10.5); Carbon Dioxide 21 mmol/L (22-29); Chloride 98 mmol/L (98-107); Eosinophils # 0.3 10^3/uL (0.0-0.8); Eosinophils % 1.8 %; Glucose 93 mg/dL (65-115); Hematocrit 36.9 % (37.0-47.0); Hemoglobin 11.3 g/dL (11.5-15.3); Lymphocytes # 1.2 10^3/uL (0.8-4.8); Lymphocytes % 8.8 %; Mean Corpuscular HGB Conc 30.6 g/dL (30.0-36.0); Mean Corpuscular Hemoglobin 32.2 pg (28.0-34.0); Mean Corpuscular Volume 105.1 fl (81-99); Mean Platelet Volume 10.7 fL (7.4-10.4); Monocytes # 1.3 10^3/uL (0.2-0.9); Monocytes % 9.2 %; Neutrophils # 10.67 10^3/uL (1.8-7.7); Neutrophils % 78.5 %; Nucleated Red Blood Cells % 0 %; Osmolality Calculated 276 mOsm/kg (285-295); Platelet Count 311 10^3/cmm (130-400); Potassium 4.6 mmol/L (3.5-5.1); Red Blood Count 3.51 10^6/uL (4.1-5.3); Red Cell Distribution Width 14.4 % (12.1-15.1); Sodium 130 mmol/L (136-145); White Blood Count 13.6 10^3/uL (4.0-10.0)
[2022-10-09] MEDS: heparin 5,000 unit/mL INJ 1 mL 5000 UNIT SUBCUT ×2 (08:56→20:07)
[2022-10-09] MEDS: carvedilol 3.125 mg Tablet PO ×2 (08:57→18:06)
[2022-10-09] MEDS: aspirin 325 mg Tablet PO (08:57)
[2022-10-09] MEDS: pantoprazole DR 40 mg Tablet PO (08:57)
[2022-10-09] MEDS: isosorbide mononitrate ER 60 mg Tablet PO (08:57)
[2022-10-09] MEDS: levothyroxine 88 mcg Tablet PO (08:57)
[2022-10-09] MEDS: cefTRIAXone 1,000 MG in sodium chloride 0.9% (plus) 50 ML 100 MG IV (08:58)
[2022-10-09] MEDS: losartan 50 mg Tablet PO (09:01)
[2022-10-09] MEDS: azithromycin 500 MG in sodium chloride 0.9% 250 ML 250 MG IV (11:27)
--- NOTE | 2022-10-09 15:02 | P.PN_ITS ---
Subjective Subjective: patient states she didnot get sleep overnight, has a persistent cough, no fever, no chills Vitals/I&O/Wt Last Vital Signs Temp 98.2 F 10/09/22 12:00 Pulse 67 10/09/22 12:00 Resp 15 10/09/22 12:00 BP 168/72 10/09/22 12:00 Pulse Ox 95 10/09/22 12:00 O2 Del Method Nasal Cannula 10/09/22 08:24 O2 Flow Rate 3 10/09/22 08:24 FiO2 2 10/07/22 15:41 10/09/22 10/09/22 10/09/22 06:59 14:59 22:59 Intake Total 941.25 / 2721.25 240 / 240 Output Total 500 / 1500 Balance 441.25 / 1221.25 240 / 240 Physical Exam Const: COMMON NORMALS: no acute distress and patient oriented x3 Resp: COMMON NORMALS: normal respiratory effort, No retractions, No use of accessory muscles and clear to auscultation bilaterally AUSCULTATION: clear to auscultation bilaterally Cardio: COMMON NORMALS: regular rate, regular rhythm, S1 normal heart sound present and S2 normal heart sound present RATE: regular rate RHYTHM: regular rhythm HEART SOUNDS: S1 normal heart sound present and S2 normal heart sound present GI: COMMON NORMALS: Normal to inspection, nondistended, normoactive bowel sounds present and non-tender Extremity: COMMON NORMALS: no pedal edema Neuro: COMMON NORMALS: patient oriented x3 Psych: COMMON NORMALS: mental status grossly normal Urinary Catheter Management: Lim: Cath Placed During This Visit: yes Reason for Continuing Indwelling Catheter: Other Urinary Catheter Date of Insertion: 10/07/22 Urinary Catheter Time of Insertion: 21:15 Data 10/09/22 04:13 10/09/22 04:13 Micro: Microbiology 10/07/22 21:30 Blood Culture - Preliminary Blood NEGATIVE TO DATE 10/07/22 21:30 Blood Culture - Preliminary Blood NEGATIVE TO DATE A&P Assessment and plan (1) Right middle lobe pneumonia: (2) Hyponatremia: (3) Volume depletion: (4) Fatigue: (5) Hypoxia: (6) Congestive heart failure: (7) Weakness: (8) History of heart artery stent: (9) History of [place] (myocardial infarction): (10) Coronary artery disease: Qualifiers: Coronary Disease-Associated Artery/Lesion type: [place] artery [place] vs. transplanted heart: [place] heart Associated angina: without angina Qualified Code(s): I25.10 - Atherosclerotic heart disease of [place] coronary artery without angina pectoris (11) NSTEMI (non-ST elevated myocardial infarction): (12) Sepsis: Plan #Community-acquired pneumonia #Sepsis, sepsis markers, pneumonia, creatinine of 2, troponin of 82, failure as above, leukocytosis #Generalized weakness secondary to above #Acute hypoxia requiring supplemental oxygen #Hyponatremia, 130 #DAXA on CKD, baseline creatinine 1.1-1.3 #History of CAD, history of [place] #Hypothyroidism #Hypertension #Chronic systolic congestive heart failure with EF of 40% ? Continue aspirin, Coreg, gabapentin, Imdur, hydrocodone, levothyroxine -Continue normal saline at 75 cc an hour - Sputum culture Gram stain, blood cultures, bacterial antigen Legionella, Stre ptococcus ? Place on DuoNebs every 6 hours as needed ? Continue ceftriaxone and azithromycin - Cautious use of IV fluids. Patient's EF is 40% from December 2021. ? Monitor for fluid overload ? I will hold clonidine at this time. ? Hold gabapentin ? Hold potassium ? Hold torsemide ? Continue valsartan 160 daily -NSTEMI, likely type II, supply demand ischemia from pneumonia, monitor for chest pain, EKG/retromuscular telemetry monitoring Full code DVT prophylaxis: SCDs, heparin SQ twice daily Attestations Medical Necessity Statement*: patient requires hospitalization for pneumonia, daxa Coding Level of Care Code Acute Code for Chg Fwd Diagnoses Right middle lobe pneumonia J18.9 Hyponatremia E87.1 Volume depletion E86.9 Fatigue R53.83 Hypoxia R09.02 Congestive heart failure I50.9 Weakness R53.1 History of heart artery stent Z95.5 History of [place] (myocardial infarction) I25.2 Coronary artery disease I25.10 Coronary Disease-Associated Artery/Lesion type: [place] artery [place] vs. transplanted heart: [place] heart Associated angina: without angina NSTEMI (non-ST elevated myocardial infarction) I21.4 Sepsis A41.9
[2022-10-09] MEDS: HYDROcodone-acetaminophen 10-325 mg Tablet 1 TAB PO (18:42)
[2022-10-09] MEDS: zolpidem 5 mg Tablet PO (20:07)
[2022-10-10] VITALS (9 sets, daily range): BP systolic 155–192; BP diastolic 70–81; PULSE 62–87; RESP 15–23; TEMP 36.4–36.8; O2SAT 85–98
[2022-10-10] MEDS: HYDROcodone-acetaminophen 10-325 mg Tablet 1 TAB PO ×2 (00:37→04:56)
[2022-10-10] MEDS: hyDRALAzine 20 mg/mL INJ 1 mL 10 MG IVP ×2 (00:55→06:23)
[2022-10-10 05:37] LABS: Basophils # 0.1 10^3/uL (0.0-0.1); Basophils % 0.6 %; Eosinophils # 0.2 10^3/uL (0.0-0.8); Eosinophils % 1.1 %; Hematocrit 36.6 % (37.0-47.0); Hemoglobin 11.5 g/dL (11.5-15.3); Lymphocytes # 1.8 10^3/uL (0.8-4.8); Lymphocytes % 11.2 %; Mean Corpuscular HGB Conc 31.4 g/dL (30.0-36.0); Mean Corpuscular Hemoglobin 32.7 pg (28.0-34.0); Mean Platelet Volume 10.7 fL (7.4-10.4); Monocytes # 1.2 10^3/uL (0.2-0.9); Monocytes % 7.8 %; Neutrophils # 11.89 10^3/uL (1.8-7.7); Neutrophils % 75.8 %; Nucleated Red Blood Cells % 0 %; Platelet Count 398 10^3/cmm (130-400); Red Blood Count 3.52 10^6/uL (4.1-5.3); Red Cell Distribution Width 14.7 % (12.1-15.1); White Blood Count 15.7 10^3/uL (4.0-10.0)
--- NOTE | 2022-10-10 05:42 | PC.NURSE ---
one time order IVP 10 MG hydralazine for elevated pt bp received by dr padilla
[2022-10-10 05:58] LABS: Anion Gap 15.6 (5-19); Blood Urea Nitrogen 19 mg/dL (8-23); Calcium 8.8 mg/dL (8.5-10.5); Carbon Dioxide 22 mmol/L (22-29); Chloride 99 mmol/L (98-107); Glucose 92 mg/dL (65-115); Osmolality Calculated 276 mOsm/kg (285-295); Potassium 4.6 mmol/L (3.5-5.1); Sodium 132 mmol/L (136-145)
[2022-10-10] MEDS: sodium chloride 0.9% 1,000 ML 75 ML IV (06:22)
--- NOTE | 2022-10-10 07:07 | CTR_ITS ---
PROCEDURE INFORMATION: Exam: CT Chest Without Contrast; Diagnostic Exam date and time: 10/10/2022 7:35 AM Age: 82 years old Clinical indication: Shortness of breath; Additional info: SOB TECHNIQUE: Imaging protocol: Diagnostic computed tomography of the chest without contrast. Radiation optimization: All CT scans at this facility use at least one of these dose optimization techniques: automated exposure control; mA and/or kV adjustment per patient size (includes targeted exams where dose is matched to clinical indication); or iterative reconstruction. REPORTING DATA: Count of CT and Cardiac NM exams in prior 12 months: This patient has received [address] and 0 known cardiac nuclear medicine studies in the 12 months prior to the current study. COMPARISON: CR (CHEST, ) 10/07/2022 5:15 PM RADIATION DOSE METRICS: Total DLP (mGy-cm): 288.16 FINDINGS: Lungs: Emphysematous change and asymmetric right-sided interstitial/airspace disease. Pleural spaces: Small bilateral pleural effusions. Heart: Coronary artery calcification. Lymph nodes: Calcified lymph nodes in association with chronic granulomatous disease. Vasculature: Calcification and ectasia of the thoracic aorta. Upper abdomen: Cholelithiasis. Splenic granulomata. Left renal atrophy and poorly defined mass in the lower pole left kidney. Wall thickening in the nondistended stomach. Bones/joints: Severe scoliosis and degenerative change. Soft tissues: Subcutaneous edema. CT/CT chest wo con [id number] IMPRESSION: 1. Emphysematous change and asymmetric right-sided interstitial/airspace disease. 2. Small bilateral pleural effusions. 3. Cholelithiasis. 4. Additional findings as described above. COMMENTS: Consistent with the [employer] [employer]'s Incidental Findings Committee white paper (J Am Ethan Radiol 2018): Any incidental renal lesion less than 1 cm or classified as too small to characterize, or any incidental cystic renal lesion characterized as simple-appearing, is likely benign. No follow-up imaging is recommended for these lesions per consensus recommendations based on imaging criteria.
[2022-10-10 08:20] LABS: Procalcitonin 0.21 ng/mL (0-0.5)
--- NOTE | 2022-10-10 08:57 | PC.PHAR ---
PHARMACY TO DOSE VANCOMYCIN Pharmacokinetic dosing service Objective: Patient: Floor: Age: 82 yo Serum creatinine: 1 mg/dL Height: 61.0 Inches Weight (kg): 55 Diagnosis: Relevant medical/social history: Cultures and sensitivities: Other labs: Assessment: IBW (kg): 47.80 Dosing wt(kg): 55 Estimated Creatinine clearance (ml/min): 33.9 CRCL method: Cockcroft and Gault using ibw(default). Drug selected: Vancomycin Loading dose (mg): Vd (liters): 38.5 (factor used: 0.7 L/kg) Macario (hr-1): 0.033 Half life (hrs): 21.00 CLvanco=?? 1.270 L/hr Recommended dose: 750 mg Interval: 24 hrs Infusion time (hrs): 1 Predicted peak (mcg/mL): 35.0 Predicted trough (mcg/mL): 16.38 Total body weight is being used for vancomycin dosing. Recommendations: Give Vancomycin 750 mg q 24 hrs with an expected Cpeak of 35.0 mcg/ml and an expected Ctrough of 16.38 mcg/ml AUC 0-24 /NIHARIKA Data: NIHARIKA 0.5 mcg/mL:?? AUC/NIHARIKA:? 1181.1 NIHARIKA 1.0 mcg/mL:?? AUC/NIHARIKA:? 590.6 --------- NIHARIKA 1.5 mcg/mL:?? AUC/NIHARIKA:? 393.7 NIHARIKA 2.0 mcg/mL:?? AUC/NIHARIKA:? 295.3 Thank you for the consult, will continue to follow.
[2022-10-10] MEDS: heparin 5,000 unit/mL INJ 1 mL 5000 UNIT SUBCUT (09:25)
[2022-10-10] MEDS: carvedilol 6.25 mg Tablet PO (09:26)
[2022-10-10] MEDS: vancomycin 750 MG in sodium chloride 0.9% 250 ML 250 MG IV (09:27)
[2022-10-10] MEDS: aspirin 325 mg Tablet PO (09:27)
[2022-10-10] MEDS: pantoprazole DR 40 mg Tablet PO (09:27)
[2022-10-10] MEDS: losartan 50 mg Tablet PO (09:27)
[2022-10-10] MEDS: isosorbide mononitrate ER 60 mg Tablet PO (09:27)
[2022-10-10] MEDS: amlodipine 10 mg Tablet PO (09:27)
[2022-10-10] MEDS: levothyroxine 88 mcg Tablet PO (09:27)
--- NOTE | 2022-10-10 10:02 | P.DS_ITS ---
Discharge Providers Date of Admission: 10/07/22 19:46 Date of Discharge: October 10, 2022 Attending Provider at Admission: Kimi Alonzo MD Attending Provider at Discharge: Viral Farrar MD Primary Care Provider: Doe Bui MD Diagnoses at Discharge Discharge Diagnosis (1) Right middle lobe pneumonia: Status: Acute (2) Hyponatremia: Status: Acute (3) Volume depletion: Status: Acute (4) Fatigue: Status: Acute (5) Hypoxia: Status: Acute (6) Congestive heart failure: Status: Acute (7) Weakness: Status: Acute (8) History of heart artery stent: Status: Acute Permanent problem details: 2018 after heart attack (9) History of [place] (myocardial infarction): Status: Acute Permanent problem details: 2018--had coronary artery stent placed (10) Coronary artery disease: Status: Acute Qualifiers: Associated angina: without angina Coronary Disease-Associated Artery/Lesion type: [place] artery [place] vs. transplanted heart: [place] heart Qualified Code(s): I25.10 - Atherosclerotic heart disease of [place] coronary artery without angina pectoris (11) NSTEMI (non-ST elevated myocardial infarction): Status: Acute (12) Sepsis: Status: Acute Reason for Visit Reason for Visit: Low O2 Hospital Course Hospital Course Kati Chris is a 82 year old female with past medical history of CAD, [place], hypertension, chronic low back pain presented to the hospital because of generalized weakness that have been going on for the last 5 days.? She reports a dry cough and is not expectorating any sputum at this time but just feels generally weak and tired.? She is fatigued to the point that she does want to do anything.? She has loss of appetite as well.? She took a COVID test at home on Tuesday and it was negative.? She has been vaccinated for COVID in the past.? No recent ill contacts.? at home is also not ill.? Denies nausea, vomiting, chest pain, chills, dysuria, fever, headache.She says she has never used oxygen before. Last time she had a resp illness, it was probably 10 years ago.? She is a bit worried about her condition. Patient was admitted to [facility] for pneumonia, hypoxia, dehyd ration, DAXA, hyponatremia, received Rocephin, azithromycin and clinically monitored. Patient remained afebrile, cultures so far unremarkable, however she continued to have complaints of weakness, fatigue, tiredness, wheezing. The morning of 10/10/2022, patient's white blood cell count elevated to 15.7, chest x-ray showed right-sided interstitial infiltrates, she did have some wheezing on the right side that was persistent. I expanded her antibiotic coverage to vancomycin and Zosyn. Due to her persistent hypoxia on 3 L, weakness, fatigue, I have recommended another day of IV antibiotics, monitoring and hopefully can discharge tomorrow. However patient was adamant about going home. I discussed my concerns about her going home, risk of her having dehydration, poor appetite, persistent wheezing, worsening pneumonia, and morbidity mortality associated. However patient was adamant that she wanted to go home, she was discharged home on 5 remaining days of Levaquin with close follow-up with primary care provider as outpatient Patient was found to have a poorly defined mass in the lower pole of the left kidney, patient did not stay for her renal ultrasound, she wanted to go home, patient was notified to follow-up with Dr. Bui for further evaluation Physical Exam Const: COMMON NORMALS: no acute distress and patient oriented x3 Resp: COMMON NORMALS: normal respiratory effort, No retractions and No use of accessory muscles AUSCULTATION: wheezes Cardio: COMMON NORMALS: regular rate, regular rhythm, S1 normal heart sound present and S2 normal heart sound present RATE: regular rate RHYTHM: regular rhythm HEART SOUNDS: S1 normal heart sound present and S2 normal heart sound present GI: COMMON NORMALS: Normal to inspection, nondistended, normoactive bowel sounds present and non-tender Extremity: COMMON NORMALS: no pedal edema Neuro: COMMON NORMALS: patient oriented x3 Psych: COMMON NORMALS: mental status grossly normal Urinary Catheter Management: Lim: Cath Placed During This Visit: yes Reason for Continuing Indwelling Catheter: Other Urinary Catheter Date of Insertion: 10/07/22 Urinary Catheter Time of Insertion: 21:15 Discharge Data Studies Completed and Pending Completed Studies During Hospitalization Category Date Time Status CT chest wo con [id number] Stat Cat Scan 10/10/22 07:07 Completed XR chest 2V* [id number] Stat Exams 10/07/22 17:09 Completed Pending at discharge Category Date Time Status Basic Metabolic Panel AM LABS Lab 10/11/22 04:00 Ordered Blood Culture Stat Lab 10/07/22 21:30 Results Complete Blood Count w/Auto AM LABS Lab 10/11/22 04:00 Ordered MRSA by PCR Stat Lab 10/10/22 08:48 Uncollected Sputum Culture and Gram Stain Stat Lab 10/09/22 09:03 Results US renal BI* [id number] Routine Ultrasound 10/10/22 08:47 Ordered US renal doppler [CV renal doppler [id number]] Stat Ultrasound 10/10/22 09:52 Ordered Radiology Impressions Chest X-Ray 10/07/22 17:09 IMPRESSION: Mild patchy infiltrate with atelectasis right perihilar mid lung posteriorly and right middle lobe suggesting pneumonia on the right, for follow-up. Chest CT 10/10/22 07:07 IMPRESSION: 1. Emphysematous change and asymmetric right-sided interstitial/airspace disease. 2. Small bilateral pleural effusions. 3. Cholelithiasis. 4. Additional findings as described above. COMMENTS: Consistent with the [employer] [employer]'s Incidental Findings Committee white paper (J Am Ethan Radiol 2018): Any incidental renal lesion less than 1 cm or classified as too small to characterize, or any incidental cystic renal lesion characterized as simple-appearing, is likely benign. No follow-up imaging is recommended for these lesions per consensus recommendations based on imaging criteria. Laboratory Results WBC 15.7 10^3/uL (4.0-10.0) H 10/10/22 04:49 RBC 3.52 10^6/uL (4.1-5.3) L 10/10/22 04:49 Hgb 11.5 g/dL (11.5-15.3) 10/10/22 04:49 Hct 36.6 % (37.0-47.0) L 10/10/22 04:49 MCV 104.0 fl (81-99) H 10/10/22 04:49 MCH 32.7 pg (28.0-34.0) 10/10/22 04:49 MCHC 31.4 g/dL (30.0-36.0) 10/10/22 04:49 RDW 14.7 % (12.1-15.1) 10/10/22 04:49 Plt Count 398 10^3/cmm (130-400) 10/10/22 04:49 MPV 10.7 fL (7.4-10.4) H 10/10/22 04:49 Neut % (Auto) 75.8 % 10/10/22 04:49 Lymph % (Auto) 11.2 % 10/10/22 04:49 [place] % (Auto) 7.8 % 10/10/22 04:49 Eos % (Auto) 1.1 % 10/10/22 04:49 Baso % (Auto) 0.6 % 10/10/22 04:49 Neut # (Auto) 11.89 10^3/uL (1.8-7.7) H 10/10/22 04:49 Lymph # (Auto) 1.8 10^3/uL (0.8-4.8) 10/10/22 04:49 [place] # (Auto) 1.2 10^3/uL (0.2-0.9) H 10/10/22 04:49 Eos # (Auto) 0.2 10^3/uL (0.0-0.8) 10/10/22 04:49 Baso # (Auto) 0.1 10^3/uL (0.0-0.1) 10/10/22 04:49 Nucleated RBC % (auto) 0 % 10/10/22 04:49 Nucleated RBCs # 0.0 /100WBC 10/10/22 04:49 Sodium 132 mmol/L (136-145) L 10/10/22 04:49 Potassium 4.6 mmol/L (3.5-5.1) 10/10/22 04:49 Chloride 99 mmol/L (98-107) 10/10/22 04:49 Carbon Dioxide 22 mmol/L (22-29) 10/10/22 04:49 Anion Gap 15.6 (5-19) 10/10/22 04:49 BUN 19 mg/dL (8-23) 10/10/22 04:49 Creatinine 1.0 mg/dL (0.5-0.9) H 10/10/22 04:49 GFR Calculation Not Reportable 10/10/22 04:49 Glucose 92 mg/dL (65-115) 10/10/22 04:49 Calculated Osmolality 276 mOsm/kg (285-295) L 10/10/22 04:49 Lactic Acid 1.6 mmol/L (0.5-2.2) 10/07/22 17:45 Calcium 8.8 mg/dL (8.5-10.5) 10/10/22 04:49 Magnesium 2.4 mg/dL (1.7-2.3) H 10/08/22 08:58 Total Bilirubin 0.7 mg/dL (0.15-1.2) 10/07/22 17:45 AST 19 U/L (0-32) 10/07/22 17:45 ALT 8 U/L (0-33) 10/07/22 17:45 Alkaline Phosphatase 127 U/L (35-105) H 10/07/22 17:45 Troponin T Baseline 82 ng/L (0-10) H 10/07/22 17:45 Troponin T 120 Minute 70.59 ng/L (0-10) H 10/07/22 19:42 Delta Troponin T -11.41 ABS# (0-10) L 10/07/22 19:42 Troponin T Hi Sens 6Hr 67.31 ng/L (0-10) H 10/07/22 23:34 Troponin T Hi Sens 6Hr Delta -14.69 ng/L (0-12) L 10/07/22 23:34 C-Reactive Protein 287.0 mg/L (0.0-4.9) H 10/10/22 04:49 Total Protein 8.1 g/dL (6.6-8.7) 10/07/22 17:45 Albumin 3.7 g/dL (3.5-5.2) 10/07/22 17:45 Globulin 4.4 g/dL (1.3-4.6) 10/07/22 17:45 Procalcitonin 0.21 ng/mL (0-0.5) 10/10/22 04:49 TSH 2.40 uIU/mL (0.27-4.20) 10/07/22 17:45 Urine Color Yellow (Yellow) 10/07/22 19:51 Urine Appearance Clear (CLEAR) 10/07/22 19:51 Urine pH 5 (5-7) 10/07/22 19:51 Ur Specific [place] 1.015 (1.005-1.030) 10/07/22 19:51 Urine Protein Neg (Negative) 10/07/22 19:51 Urine Glucose (UA) Norm (Normal) 10/07/22 19:51 Urine Ketones Negative (Negative) 10/07/22 19:51 Urine Blood Neg (Negative) 10/07/22 19:51 Urine Nitrate Negative (Negative) 10/07/22 19:51 Urine Bilirubin Neg (Negative) 10/07/22 19:51 Urine Urobilinogen Neg mg/dL (Negative) 10/07/22 19:51 Ur Leukocyte Esterase Negative (Negative) 10/07/22 19:51 Influenza Type A Ag negative (Negative) 10/07/22 18:07 Influenza Type B Ag negative (Negative) 10/07/22 18:07 SARS-CoV-2 Ag (Rapid) negative (Negative) 10/07/22 18:07 Vitals Last Vital Signs Temp 98.2 F 10/10/22 08:00 Pulse 80 10/10/22 08:42 Resp 15 10/10/22 08:00 BP 186/72 10/10/22 09:27 Pulse Ox 96 10/10/22 08:42 O2 Del Method Nasal Cannula 10/10/22 08:42 O2 Flow Rate 3 10/10/22 08:42 FiO2 2 10/07/22 15:41 Discharge Plan Discharge Patient Disposition: Home Condition: Stable Prescriptions: New levofloxacin 750 mg tablet 750 mg PO DAILY 5 Days Qty: 5 0RF albuterol sulfate 90 mcg/actuation HFA aerosol inhaler 1 inh inhalation Q6H PRN (Reason: shortness of breath or wheezing) Qty: 8.5 0RF benzonatate 100 mg capsule 100 mg PO TID PRN (Reason: cough) 5 Days Qty: 15 0RF Continued aspirin 325 mg tablet 325 mg PO DAILY levothyroxine 88 mcg tablet 88 mcg PO DAILY Qty: 90 3RF torsemide 5 mg tablet 5 mg PO DAILY Qty: 90 3RF valsartan 160 mg tablet See Rx Instructions .ROUTE .COMPLEX Qty: 180 3RF Dose Instruction: Take 1 tablet by mouth twice daily Rx Instructions: Take 1 tablet by mouth twice daily isosorbide mononitrate 60 mg tablet extended release 24 hr See Rx Instructions .ROUTE .COMPLEX Qty: 90 3RF Dose Instruction: Take 1 tablet by mouth once daily Rx Instructions: Take 1 tablet by mouth once daily magnesium oxide 400 mg (241.3 mg magnesium) tablet See Rx Instructions .ROUTE .COMPLEX Qty: 180 3RF Dose Instruction: Take 1 tablet by mouth twice daily Rx Instructions: Take 1 tablet by mouth twice daily hydrocodone-acetaminophen 10-325 mg tablet 1 tab PO Q4H PRN (Reason: Pain) 30 Days Qty: 180 0RF potassium chloride 20 mEq tablet extended release 20 meq PO DAILY tamsulosin 0.4 mg capsule 0.4 mg PO BID felodipine 10 mg tablet extended release 24 hr 10 mg PO DAILY hydrochlorothiazide 25 mg tablet 25 mg PO DAILY gabapentin 100 mg capsule 100 mg PO BID Changed carvedilol 3.125 mg tablet 6.25 mg PO BID 30 Days Qty: 120 0RF Discharge Orders: Discharge Order (Routine); Ordered 10/10/22 Ordered By: Viral Farrar Other Ambulatory Orders: DME: Oxygen (Order) Location: None Selected Ordered By: Viral Farrar DME: Walker (Order) Location: None Selected Ordered By: Viral Farrar Referrals: Doe Bui MD [Primary Care Provider] - (Please call Tuesday to schedule your follow up appointment with Dr. Bui.) Discharge Diet: Cardiac Discharge Activity: Resume usual activity Patient Instructions: Benzonatate (By mouth), Albuterol (By breathing), Levofloxacin (By mouth), Heart Attack (DC), Pneumonia (GEN), Opioid Safety, Pneumonia Stoplight Activity Restrictions/Additional Instructions: - If any worsening shortness of breath please go to emergency room -Follow-up with primary care for recheck blood pressure Discharge Attestations Time Spent in Discharge Care*: greater than 30 min Quality Metrics Clinical Quality Measures [ No reported AMI, CVA or VTE this stay] Coding Level of Care Code 38208 Total time (in minutes) for Discharge: 40 Diagnoses Right middle lobe pneumonia J18.9 Hyponatremia E87.1 Volume depletion E86.9 Fatigue R53.83 Hypoxia R09.02 Congestive heart failure I50.9 Weakness R53.1 History of heart artery stent Z95.5 History of [place] (myocardial infarction) I25.2 Coronary artery disease I25.10 Associated angina: without angina Coronary Disease-Associated Artery/Lesion type: [place] artery [place] vs. transplanted heart: [place] heart NSTEMI (non-ST elevated myocardial infarction) I21.4 Sepsis A41.9
[2022-10-10] MEDS: piperacillin-tazobactam 3.375 GM in sodium chloride 0.9% (plus) 50 ML IV (10:58)
[2022-10-10] MEDS: hydroCHLOROthiazide 25 mg Tablet PO (10:58)
--- NOTE | 2022-10-10 11:39 | PC.SOCIAL ---
IMM Update pg 2 of IMM updated and reviewed w/ patient and her . Copy provided and Copy in chart dated, and initialed.
== END 2022-10-10 14:36 | disposition home or self-care (01) | DRG 871 ==
LOC: ER 19:57 → MEDSURG 20:56
PROVIDERS: Nurse Practitioner Family; Admitting Provider Internal Medicine; Emergency Provider Emergency Medicine; PCP Family Medicine; Visit Provider Family Medicine
DX: A41.9 Sepsis, unspecified organism (principal); J18.9 Pneumonia, unspecified organism; E87.1 Hypo-osmolality and hyponatremia; I13.0 Hypertensive heart and chronic kidney disease with heart failure and stage 1 through stage 4 chronic kidney disease, or unspecified chronic kidney disease; I50.22 Chronic systolic (congestive) heart failure; N17.9 Acute kidney failure, unspecified; R09.02 Hypoxemia; E86.0 Dehydration; I44.7 Left bundle-branch block, unspecified; I25.10 Atherosclerotic heart disease of native coronary artery without angina pectoris; N18.9 Chronic kidney disease, unspecified; N28.89 Other specified disorders of kidney and ureter; E03.9 Hypothyroidism, unspecified; G89.29 Other chronic pain; M54.50 Low back pain, unspecified; Z95.5 Presence of coronary angioplasty implant and graft; I25.2 Old myocardial infarction; Z79.891 Long term (current) use of opiate analgesic
CPT/HCPCS: 36415; 51702; 71046; 71250; 80048; 80053; 81003; 83605; 83735; 84145; 84295; 84443; 84484; 85025; 86140; 86403; 87040; 87070; 87077; 87186; 87205; 87426; 87804; 93005; 94664; 94760; 96365; 96367; 96372; 97110; 97116; 97161; 97165; 97530; 99213; 99285; J0360; J0456; J0696; J1644; J2543; J3370; J7030; J7050; J7120

== ENCOUNTER 2022-10-16 14:16 | Inpatient (IN) | payer MEDICARE, OTHER, SELFPAY ==
[2022-10-16] VITALS (11 sets, daily range): BP systolic 156–193; BP diastolic 61–97; PULSE 61–79; RESP 15–22; TEMP 36.5–36.8; O2SAT 90–98
--- NOTE | 2022-10-16 15:46 | XRR_ITS ---
PROCEDURE INFORMATION: Exam: XR Chest Exam date and time: 10/16/2022 3:52 PM Age: 82 years old Clinical indication: Dyspnea; Prior surgery; Surgery type: Heart stent; Additional info: Dyspnea, HX of pneumonia TECHNIQUE: Imaging protocol: Radiologic exam of the chest. Views: 1 view. COMPARISON: CT chest [facility] [id number] 10/10/2022 7:35 AM FINDINGS: Lungs: Stable opacification in the right mid lung and right lower lobe suspicious for pneumonia. Stable fullness with calcification in the right hilar region, this corresponds to an enlarged partially calcified right hilar lymph node noted on the prior CT scan. Pleural spaces: No pleural effusion. No pneumothorax. Heart/Mediastinum: Stable mild enlargement of the cardiac silhouette. Vasculature: Stable vascular calcifications in the aorta. Stable tortuosity of the aorta. Bones/joints: Unremarkable for age. XR/XR chest 1V portable [id number] IMPRESSION: 1. Stable opacification in the right mid lung and right lower lobe suspicious for pneumonia. Recommend followup chest imaging to insure resolution of these findings. 2. Stable fullness with calcification in the right hilar region, this corresponds to an enlarged partially calcified right hilar lymph node noted on the prior CT scan. 3. Incidental/nonacute findings are listed in the report.
[2022-10-16 16:08] LABS: Basophils # 0.1 10^3/uL (0.0-0.1); Basophils % 0.5 %; Eosinophils # 0.1 10^3/uL (0.0-0.8); Eosinophils % 0.8 %; Hematocrit 34.8 % (37.0-47.0); Hemoglobin 11.2 g/dL (11.5-15.3); Lymphocytes % 6.7 %; Mean Corpuscular HGB Conc 32.2 g/dL (30.0-36.0); Mean Corpuscular Hemoglobin 31.9 pg (28.0-34.0); Mean Corpuscular Volume 99.1 fl (81-99); Mean Platelet Volume 9.9 fL (7.4-10.4); Monocytes # 0.8 10^3/uL (0.2-0.9); Monocytes % 5.2 %; Neutrophils # 13.24 10^3/uL (1.8-7.7); Nucleated Red Blood Cells % 0 %; Platelet Count 455 10^3/cmm (130-400); Red Blood Count 3.51 10^6/uL (4.1-5.3); Red Cell Distribution Width 14.4 % (12.1-15.1); White Blood Count 15.4 10^3/uL (4.0-10.0)
--- NOTE | 2022-10-16 16:22 | W.ED.SOB ---
HPI - SOB/Dyspnea General: Chief Complaint: Shortness of Breath/Dyspnea Stated Complaint: Weakness, low 02 at home Time Seen by Provider: 10/16/22 15:46 History of Present Illness: HPI Narrative: Patient presents to the ER with complaints of worsening shortness of breath, low oxygen, and generalized weakness. Patient was admitted and diagnosed with pneumonia on 413, discharged home on Levaquin. Patient could not tolerate that so she seen her primary care physician who placed her on Bactrim. Patient feels she just is getting weaker, still having the nausea and vomiting, and not getting any better from a breathing standpoint. MD elicited complaint: shortness of breath and cough Pertinent past history: congestive heart failure and pneumonia Onset (ago): week(s) (1 to 2 weeks ago) Context: recent illness Timing: constant and progressively worsening Severity: mild Exacerbating factors: exertion, coughing and talking Relieving factors: nothing Known history of: congestive heart failure Associated symptoms: Reports cough, nausea and vomiting; Deny abdominal pain, chest pain, fever(s) or palpitations Treatment prior to arrival: other (Antibiotics) Review of Systems General: Reports: 10 or more systems reviewed and unremarkable except in HPI and below Const: Denies: fever(s) or chills Eyes: Denies: change in vision or photophobia ENMT: Denies: throat pain or odynophagia Card: Denies: chest pain, palpitations, irregular heart rhythm or edema Resp: Reports: dyspnea GI: Reports: nausea and vomiting; Denies: abdominal pain or diarrhea : Denies: flank pain Musc: Reports: muscle weakness; Denies: neck pain or back pain Skin/Breast: Denies: rash or pruritus PFS ED PFSH: Medical History Chronic low back pain Has had recent back surgery Coronary artery disease Dehydration History of [place] (myocardial infarction) 2018--had coronary artery stent placed Hypertension Chronic hypertension diagnosed at the age of 31. Follows up with cardiology Dr. Castellanos as well as her primary care provider. Hypoxia No pertinent past medical history Denies diabetes, asthma, seizures, DVT/PE PCP: Dr. Bui Pneumonia Vaginal prolapse 09/30/2021--grade 3-4 cystocele, grade 3 vault prolapse, grade 1 rectocele Surgical History History of back surgery March 2021--[place]formed [place]. Nunez [place] [facility] [place] History of heart artery stent 2018 after heart attack History of tubal ligation In her mid 30s---done through supra umbilical minilaparotomy incision S/P hysterectomy Vaginal hysterectomy for prolapse performed by Dr. George in 2018. Her ovaries were not removed. Family History Mother Heart disease Hypertension Colon cancer diagnosed in her late 60s Daughter Heart disease Family/Other Breast cancer maternal aunt, age at diagnosis unknown Social History Smoking and tobacco status: never smoked Substance/Drug Use: never Physical Exam Const: COMMON NORMALS: average body habitus, patient oriented x3, no limitations, alert and well nourished HENMT: COMMON NORMALS: normocephalic, atraumatic, hearing grossly normal bilaterally, external ears normal, Normal external nose present and moist oral mucous membranes HEAD & SCALP: normocephalic and atraumatic NOSE: Normal external nose present EXTERNAL EAR: Yes external ears normal Eye: COMMON NORMALS: Equal, round and reactive pupils present, EOMs intact bilaterally, conjunctivae normal and no scleral icterus CONJUNCTIVA: Yes conjunctivae normal PUPIL: Yes Equal, round and reactive pupils present Neck/C-Spine: COMMON NORMALS: full ROM, no lymphadenopathy, supple, no meningeal signs, no JVD and Thyroid normal THYROID: Thyroid normal Chest: COMMONS NORMALS: normal inspection of the chest and normal palpation of entire chest wall Resp: OTHER: Decreased throughout, rhonchi throughout, Cardio: COMMON NORMALS: no JVD, regular rate, regular rhythm, S1 normal heart sound present and S2 normal heart sound present RATE: regular rate RHYTHM: regular rhythm HEART SOUNDS: S1 normal heart sound present and S2 normal heart sound present GI: COMMON NORMALS: Normal to inspection, nondistended, normoactive bowel sounds present, Soft to palpation, non-tender, No hepatosplenomegaly present and no masses PALPATION: Yes Soft to palpation and Yes No hepatosplenomegaly present Neuro: COMMON NORMALS: patient oriented x3 SENSORIUM/ORIENTATION: Yes alert MENINGEAL SIGNS: Yes no meningeal signs Course Vital Signs: Vital signs: Vital Signs Temperature 98.0 F 10/20/22 15:12 Pulse Rate 67 10/20/22 15:12 Respiratory Rate 16 10/20/22 15:12 Blood Pressure 163/64 10/20/22 15:12 Pulse Oximetry 91 10/20/22 15:12 Oxygen Delivery Me thod Room Air 10/20/22 11:25 Oxygen Flow Rate 2 10/20/22 13:34 MDM - SOB/Dyspnea Medical Decision Making Patient presents to the hospital with complaints of worsening pneumonia and outpatient antibiotic failure. Patient says she is just too weak to get around and cannot take care of herself at home. Lab work was reviewed and imaging was obtained which showed findings suspicious for pneumonia and hyponatremia. Dr. Moreno was consulted and agreed to place the person inpatient for further evaluation and treatment. Differential Diagnosis Likely community acquired pneumonia Medical Records I reviewed the patient's medical records. Lab Data I reviewed the patient's lab results. 10/20/22 08:25 10/20/22 08:25 Labs/Radiology: Radiology Impressions Chest X-Ray 10/16/22 15:46 IMPRESSION: 1. Stable opacification in the right mid lung and right lower lobe suspicious for pneumonia. Recommend followup chest imaging to insure resolution of these findings. 2. Stable fullness with calcification in the right hilar region, this corresponds to an enlarged partially calcified right hilar lymph node noted on the prior CT scan. 3. Incidental/nonacute findings are listed in the report. Renal Ultrasound 10/16/22 22:16 IMPRESSION: 1. Negative for hydronephrosis, renal calculus or urinary mass. 2. Left kidney appears somewhat atrophic measuring 7.7 cm in length. 3. Postvoid urinary bladder volume 198 mL. Laboratory Results WBC 15.4 10^3/uL (4.0-10.0) H 10/16/22 16:02 RBC 3.51 10^6/uL (4.1-5.3) L 10/16/22 16:02 Hgb 11.2 g/dL (11.5-15.3) L 10/16/22 16:02 Hct 34.8 % (37.0-47.0) L 10/16/22 16:02 MCV 99.1 fl (81-99) H 10/16/22 16:02 MCH 31.9 pg (28.0-34.0) 10/16/22 16:02 MCHC 32.2 g/dL (30.0-36.0) 10/16/22 16:02 RDW 14.4 % (12.1-15.1) 10/16/22 16:02 Plt Count 455 10^3/cmm (130-400) H 10/16/22 16:02 MPV 9.9 fL (7.4-10.4) 10/16/22 16:02 Neut % (Auto) 86.0 % 10/16/22 16:02 Lymph % (Auto) 6.7 % 10/16/22 16:02 [place] % (Auto) 5.2 % 10/16/22 16:02 Eos % (Auto) 0.8 % 10/16/22 16:02 Baso % (Auto) 0.5 % 10/16/22 16:02 Neut # (Auto) 13.24 10^3/uL (1.8-7.7) H 10/16/22 16:02 Lymph # (Auto) 1.0 10^3/uL (0.8-4.8) 10/16/22 16:02 [place] # (Auto) 0.8 10^3/uL (0.2-0.9) 10/16/22 16:02 Eos # (Auto) 0.1 10^3/uL (0.0-0.8) 10/16/22 16:02 Baso # (Auto) 0.1 10^3/uL (0.0-0.1) 10/16/22 16:02 Nucleated RBC % (auto) 0 % 10/16/22 16:02 Nucleated RBCs # 0.0 /100WBC 10/16/22 16:02 Sodium 123 mmol/L (136-145) L 10/16/22 16:02 Potassium 4.9 mmol/L (3.5-5.1) 10/16/22 16:02 Chloride 85 mmol/L (98-107) L 10/16/22 16:02 Carbon Dioxide 26 mmol/L (22-29) 10/16/22 16:02 Anion Gap 16.9 (5-19) 10/16/22 16:02 BUN 30 mg/dL (8-23) H 10/16/22 16:02 Creatinine 1.3 mg/dL (0.5-0.9) H 10/16/22 16:02 GFR Calculation Not Reportable 10/16/22 16:02 Glucose 125 mg/dL (65-115) H 10/16/22 16:02 Estimat Average Glucose 108 10/16/22 16:02 Hemoglobin A1c 5.4 % (4.0-6.0) 10/16/22 16:02 Calculated Osmolality 264 mOsm/kg (285-295) L 10/16/22 16:02 Lactic Acid 1.3 mmol/L (0.5-2.2) 10/16/22 16:02 Calcium 8.8 mg/dL (8.5-10.5) 10/16/22 16:02 Magnesium 1.9 mg/dL (1.7-2.3) 10/16/22 16:02 Total Bilirubin 0.4 mg/dL (0.15-1.2) 10/16/22 16:02 AST 29 U/L (0-32) 10/16/22 16:02 ALT 11 U/L (0-33) 10/16/22 16:02 Alkaline Phosphatase 78 U/L (35-105) 10/16/22 16:02 C-Reactive Protein 59.8 mg/L (0.0-4.9) H 10/16/22 16:02 NT-Pro-B Natriuret Pep 38268 pg/mL (0-450) H 10/16/22 16:02 Total Protein 7.3 g/dL (6.6-8.7) 10/16/22 16:02 Albumin 3.3 g/dL (3.5-5.2) L 10/16/22 16:02 Globulin 4.0 g/dL (1.3-4.6) 10/16/22 16:02 Triglycerides 151 mg/dL (0-150) H 10/16/22 16:02 Cholesterol 168 mg/dL (0-200) 10/16/22 16:02 LDL Cholesterol, Calc 97 mg/dL (50-129) 10/16/22 16:02 HDL Cholesterol 41 mg/dL (60-100) L 10/16/22 16:02 LDL/HDL Ratio 2.37 RATIO (0.00-3.22) 10/16/22 16:02 Cholesterol/HDL Ratio 4.10 mg/dL (0.0-4.40) 10/16/22 16:02 Procalcitonin 0.17 ng/mL (0-0.5) 10/16/22 16:02 Procalcitonin 0.19 ng/mL (0-0.5) 10/16/22 16:02 TSH 3.30 uIU/mL (0.27-4.20) 10/16/22 16:02 Urine Color Yellow (Yellow) 10/16/22 16:44 Urine Appearance Clear (CLEAR) 10/16/22 16:44 Urine pH 5 (5-7) 10/16/22 16:44 Ur Specific [place] 1.010 (1.005-1.030) 10/16/22 16:44 Urine Protein Neg (Negative) 10/16/22 16:44 Urine Glucose (UA) Norm (Normal) 10/16/22 16:44 Urine Ketones Negative (Negative) 10/16/22 16:44 Urine Blood Neg (Negative) 10/16/22 16:44 Urine Nitrate Negative (Negative) 10/16/22 16:44 Urine Bilirubin Neg (Negative) 10/16/22 16:44 Urine Urobilinogen Norm mg/dL (Negative) 10/16/22 16:44 Ur Leukocyte Esterase Negative (Negative) 10/16/22 16:44 Discharge Plan Discharge Patient Disposition: Admitted As Inpatient Admit Provider: Nelson Beltran Clinical Impression: Community acquired pneumonia Condition: Stable Coding Level of Care Code ED Senior [employer] Specialist for Lawrence Begum
[2022-10-16 16:23] LABS: Alanine Aminotransferase 11 U/L (0-33); Albumin Level 3.3 g/dL (3.5-5.2); Alkaline Phosphatase 78 U/L (35-105); Anion Gap 16.9 (5-19); Aspartate Amino Transferase 29 U/L (0-32); Blood Urea Nitrogen 30 mg/dL (8-23); Calcium 8.8 mg/dL (8.5-10.5); Carbon Dioxide 26 mmol/L (22-29); Chloride 85 mmol/L (98-107); Glucose 125 mg/dL (65-115); Osmolality Calculated 264 mOsm/kg (285-295); Potassium 4.9 mmol/L (3.5-5.1); Sodium 123 mmol/L (136-145); Total Bilirubin 0.4 mg/dL (0.15-1.2); Total Protein 7.3 g/dL (6.6-8.7)
[2022-10-16 16:39] LABS: Lactic Sepsis W/Reflex 1.3 mmol/L (0.5-2.2)
[2022-10-16 16:49] LABS: NT Pro B Type Natriuretic Pept 17635 pg/mL (0-450); Procalcitonin 0.19 ng/mL (0-0.5)
[2022-10-16 17:00] LABS: Magnesium 1.9 mg/dL (1.7-2.3)
[2022-10-16 17:36] LABS: Add Urine Microscopic? NO; Charge for UA Resulting for Rev
[2022-10-16 17:40] LABS: Bilirubin Urine Neg (Negative); Blood Urine Neg (Negative); Glucose Urine UA Norm (Normal); Ketones Urine Negative (Negative); Leukocyte Esterase Urine Negative (Negative); Nitrate Urine Negative (Negative); Protein Urine Neg (Negative); Urine Appearance Clear (CLEAR); Urine Color Yellow (Yellow); Urobilinogen Urine Norm (Negative); pH Urine 5 (5-7)
--- NOTE | 2022-10-16 19:21 | PC.NURSE ---
Rounded on pt, pt lying in bed. Pt does not appear to be in distress and denies needs at this time.
[2022-10-16] MEDS: cefepime 1,000 MG in sodium chloride 0.9% (plus) 50 ML 100 MG IV (19:43)
--- NOTE | 2022-10-16 21:18 | PM.HP ---
Providers/Chief Complaint Admitting Physician: Nelson Beltran Primary Care Provider: Doe Bui MD Chief Complaint: Weakness, low 02 at home History of Present Illness Kati Chris is a 82 year old female with a past medical history of CHF, hypothyroidism, hypertension, recently hospitalized for pneumonia, sputum cultures grew Serratia, patient left the hospital early as she wanted to go home, as I recommended for her to stay another day in the hospital for IV antibiotics when she got home she continued to have feelings of fatigue, malaise, GI being upset, so she could take the Levaquin which Serratia was sensitive to, she was put on Bactrim, she is taken a few doses of Bactrim continues to complain of fatigue, malaise, shortness of breath, no fevers, no chills, no nausea, no vomiting, she feels constipated, does feel lightheaded, Review of Systems Const: Reports: fatigue and malaise; Denies: fever(s) Eyes: Denies: change in vision Card: Denies: chest pain Resp: Reports: dyspnea and non-productive cough Medications/Allergies Home Medications Medication Instructions Recorded Confirmed Last Taken Type torsemide 5 mg tablet 5 mg PO DAILY #90 tabs 07/02/22 10/16/22 10/16/22 Rx valsartan 160 mg tablet See Rx Instructions .Route 08/04/22 10/16/22 10/16/22 Rx .COMPLEX #180 tabs levothyroxine 88 mcg tablet 88 mcg PO DAILY #90 tabs 09/02/22 10/16/22 10/09/22 Rx isosorbide mononitrate 60 mg See Rx Instructions .Route 09/20/22 10/16/22 10/16/22 Rx tablet,extended release 24 hr .COMPLEX #90 tabs magnesium oxide 400 mg (241.3 mg See Rx Instructions .Route 09/20/22 10/16/22 10/15/22 Rx magnesium) tablet .COMPLEX #180 tabs hydrocodone 10 mg-acetaminophen 1 tab PO Q4H PRN Pain 30 days #180 09/27/22 10/16/22 Unknown Rx 325 mg tablet tabs felodipine 10 mg tablet,extended 5 mg PO DAILY 10/08/22 10/16/22 10/16/22 History release 24 hr gabapentin 100 mg capsule 100 mg PO BID 10/08/22 10/16/22 10/16/22 History hydrochlorothiazide 25 mg tablet 25 mg PO DAILY 10/08/22 10/16/22 10/16/22 History potassium chloride 20 mEq 20 meq PO DAILY 10/08/22 10/16/22 10/15/22 History tablet,extended release tamsulosin 0.4 mg capsule 0.4 mg PO BID 10/08/22 10/16/22 10/16/22 History albuterol sulfate 90 mcg/actuation 1 inh inhalation Q6H PRN shortness 10/10/22 10/16/22 Unknown Rx aerosol inhaler of breath or wheezing #8.5 grams carvedilol 3.125 mg tablet 6.25 mg PO BID 30 days #120 tabs 10/10/22 10/16/22 10/16/22 Rx ondansetron HCl 4 mg tablet 4 mg PO Q6H PRN nausea and 10/14/22 10/16/22 Unknown Rx vomiting #30 tabs sulfamethoxazole 800 1 tab PO BID 5 days #10 tabs 10/14/22 10/16/22 10/15/22 Rx mg-trimethoprim 160 mg tablet (Bactrim DS) benzonatate 100 mg capsule 100 mg PO TID PRN Cough 10/16/22 10/16/22 Unknown History Allergies Allergy/AdvReac Type Severity Reaction Status Date / Time clonidine Allergy Severe swollen Verified 10/08/22 08:18 face with patches prazosin Allergy Severe ALGY-Difficulty Verified 10/08/22 08:18 Breathing hydralazine Allergy Unknown Verified 10/08/22 08:18 PFSH Acute PFSH: Medical History Chronic low back pain Has had recent back surgery Coronary artery disease History of [place] (myocardial infarction) 2017--had coronary artery stent placed Hypertension Chronic hypertension diagnosed at the age of 31. Follows up with cardiology Dr. Castellanos as well as her primary care provider. No pertinent past medical history Denies diabetes, asthma, seizures, DVT/PE PCP: Dr. Bui Vaginal prolapse 09/30/2021--grade 3-4 cystocele, grade 3 vault prolapse, grade 1 rectocele Surgical History History of back surgery March 2021--performed by Dr. Nunez at [facility] [place]. History of heart artery stent 2018 after heart attack History of tubal ligation In her mid 30s---done through supra umbilical minilaparotomy incision S/P hysterectomy Vaginal hysterectomy for prolapse performed by Dr. George in 2018. Her ovaries were not removed. Family History Mother Heart disease Hypertension Colon cancer diagnosed in her late 60s Daughter Heart disease Family/Other Breast cancer maternal aunt, age at diagnosis unknown Social History Smoking and tobacco status: never smoked Substance/Drug Use: never Vitals/I&O/Wt Last Vital Signs Temp 98.2 F 10/16/22 20:58 Pulse 72 10/16/22 20:58 Resp 17 10/16/22 20:58 BP 170/72 10/16/22 20:58 Pulse Ox 96 10/16/22 20:58 O2 Del Method Nasal Cannula 10/16/22 20:58 O2 Flow Rate 1.5 10/16/22 20:58 Weight last 48 hrs Weight 55.338 kg Physical Exam Const: COMMON NORMALS: no acute distress and patient oriented x3 HENMT: COMMON NORMALS: normocephalic Eye: COMMON NORMALS: Equal, round and reactive pupils present Neck/C-Spine: COMMON NORMALS: full ROM and no lymphadenopathy Lymph: LYMPHATIC: no lymphadenopathy noted Resp: COMMON NORMALS: normal respiratory effort, No retractions and No use of accessory muscles AUSCULTATION: wheezes Cardio: COMMON NORMALS: regular rate, regular rhythm, S1 normal heart sound present and S2 normal heart sound present RATE: regular rate RHYTHM: regular rhythm HEART SOUNDS: S1 normal heart sound present and S2 normal heart sound present GI: COMMON NORMALS: Normal to inspection, nondistended, normoactive bowel sounds present, Soft to palpation and non-tender Extremity: COMMON NORMALS: no pedal edema Neuro: COMMON NORMALS: patient oriented x3, CN's II-XII intact bilaterally, moves all extremities and no focal motor deficits Psych: COMMON NORMALS: mental status grossly normal Data 10/16/22 16:02 10/16/22 16:02 Micro: Microbiology 10/16/22 18:50 Blood Culture - Preliminary Blood SPECIMEN COLLECTED 10/16/22 18:45 Blood Culture - Preliminary Blood SPECIMEN COLLECTED A&P Assessment and plan (1) Hypoxia: (2) Dehydration: (3) Pneumonia: (4) History of heart artery stent: Plan RLL and RML Pneumonia -Sputum cultures have grown Serratia marcescens, sensitive to cefepime plan: -vancomycin -cefepime -sputum culture -blood culture -full code -lovenox for dvt prophylaxis Hyponatremia likely secondary to dehydration, Bactrim therapy we will hold off on fluid therapy given elevated BNP, monitor serum sodium Acute kidney injury likely severe dehydration, encourage p.o. intake Hypothyroidism Hypertension Chronic systolic CHF exacerbation does have mild pitting edema we will hold off on fluid there be hold off on Lasix therapy given elevated creatinine and low sodium Attestations Medical Necessity Statement*: patient requires hospitalization for pneumonia, dehydration, hyponatremia, inpateint, greater than 2 midnights Diagnoses Hypoxia R09.02 Dehydration E86.0 Pneumonia J18.9 History of heart artery stent Z95.5
--- NOTE | 2022-10-16 22:16 | USR_ITS ---
PROCEDURE INFORMATION: Exam: US Retroperitoneal; Complete; Kidneys and Bladder Exam date and time: 10/16/2022 11:22 PM Age: 82 years old Clinical indication: Mass, lump, or swelling; Luq; Additional info: Renal mass TECHNIQUE: Imaging protocol: Real-time ultrasound of the retroperitoneum with image documentation. Complete exam focused on the kidneys and bladder. COMPARISON: CT abdomen pelvis w con* [id number] 07/06/2019 9:06 AM FINDINGS: Right kidney: Normal. No stones. No hydronephrosis. Left kidney: Left kidney appears somewhat atrophic measuring 7.7 cm in length. Urinary bladder: Postvoid urinary bladder volume 198 mL. Prevoid bladder volume not measured. US/US renal BI* [id number] IMPRESSION: 1. Negative for hydronephrosis, renal calculus or urinary mass. 2. Left kidney appears somewhat atrophic measuring 7.7 cm in length. 3. Postvoid urinary bladder volume 198 mL.
[2022-10-16 23:12] LABS: Procalcitonin 0.17 ng/mL (0-0.5)
[2022-10-16 23:23] LABS: C Reactive Protein 59.8 mg/L (0.0-4.9); Cholesterol 168 mg/dL (0-200); HDL Cholesterol 41 mg/dL (60-100); LDL Cholesterol Calculated 97 mg/dL (50-129); LDL HDL Ratio 2.37 RATIO (0.00-3.22); Triglycerides 151 mg/dL (0-150)
[2022-10-16] MEDS: isosorbide mononitrate ER 60 mg Tablet PO (23:23)
[2022-10-16] MEDS: enoxaparin 40 mg/0.4 mL Syringe SUBCUT (23:25)
[2022-10-16] MEDS: pantoprazole 40 mg SDV IVP (23:26)
[2022-10-16 23:40] LABS: Estmated Average Glucose 108; Hemoglobin A1C 5.4 % (4.0-6.0)
--- NOTE | 2022-10-16 23:59 | PC.PHAR ---
Pharmacokinetic dosing service Date: 10/16/22 Time: 2358 Objective: Patient: Kati Chris Floor: 250-1 Age: 82 yo Serum creatinine: 1.3 mg/dL Height: 61.0 Inches Weight (kg): 55.338 Diagnosis: Relevant medical/social history: Cultures and sensitivities: Other labs: Assessment: IBW (kg): 47.80 Dosing wt(kg): 55.338 Estimated Creatinine clearance (ml/min): 26.0 CRCL method: Cockcroft and Gault using ibw(default). Drug selected: Vancomycin Loading dose (mg): 0 Vd (liters): 49.8 (factor used: 0.9 L/kg) Macario (hr-1): 0.026 Half life (hrs): 26.66 Recommended dose: 1000 mg Interval: 36 hrs Infusion time (hrs): 1.5 Predicted peak (mcg/mL): 32.4 Predicted trough (mcg/mL): 13.21 Total body weight is being used for vancomycin dosing. Renal function is stable [ ] /unstable [ ] Recommendations: Give Vancomycin 1000 mg q 36 hrs with an expected Cpeak of 32.4 mcg/ml and an expected Ctrough of 13.21 mcg/ml Renal dosing of other antibiotics (review renal dosing of other medications and list guidelines here): Thank you for the consult, will continue to follow. Signature: Jackie Carbajal [facility]
[2022-10-17] VITALS (18 sets, daily range): BP systolic 154–186; BP diastolic 54–71; PULSE 58–87; RESP 15–18; TEMP 36.4–36.8; O2SAT 89–98
[2022-10-17] MEDS: losartan 50 mg Tablet PO ×2 (00:19→08:12)
[2022-10-17] MEDS: vancomycin 1,000 MG in sodium chloride 0.9% 250 ML 250 MG IV (00:20)
[2022-10-17] MEDS: HYDROcodone-acetaminophen 10-325 mg Tablet 1 TAB PO ×4 (00:27→21:25)
[2022-10-17 05:35] LABS: Basophils # 0.1 10^3/uL (0.0-0.1); Basophils % 0.7 %; Eosinophils # 0.2 10^3/uL (0.0-0.8); Eosinophils % 1.5 %; Hematocrit 30.5 % (37.0-47.0); Lymphocytes # 1.2 10^3/uL (0.8-4.8); Lymphocytes % 10.7 %; Mean Corpuscular HGB Conc 32.8 g/dL (30.0-36.0); Mean Corpuscular Hemoglobin 32.1 pg (28.0-34.0); Mean Corpuscular Volume 97.8 fl (81-99); Mean Platelet Volume 11.3 fL (7.4-10.4); Monocytes # 0.8 10^3/uL (0.2-0.9); Monocytes % 6.8 %; Neutrophils # 8.95 10^3/uL (1.8-7.7); Neutrophils % 79.5 %; Nucleated Red Blood Cells % 0 %; Platelet Count 444 10^3/cmm (130-400); Red Blood Count 3.12 10^6/uL (4.1-5.3); Red Cell Distribution Width 14.6 % (12.1-15.1); White Blood Count 11.3 10^3/uL (4.0-10.0)
[2022-10-17 06:11] LABS: Blood Urea Nitrogen 27 mg/dL (8-23); Carbon Dioxide 23 mmol/L (22-29); Chloride 89 mmol/L (98-107); Glucose 85 mg/dL (65-115); NT Pro B Type Natriuretic Pept 13792 pg/mL (0-450); Osmolality Calculated 266 mOsm/kg (285-295); Sodium 126 mmol/L (136-145)
[2022-10-17 06:24] LABS: Anion Gap 19.4 (5-19); Potassium 5.4 mmol/L (3.5-5.1)
[2022-10-17] MEDS: ipratropium-albuterol 3 mL Neb INHALATION ×5 (07:45→23:05)
[2022-10-17] MEDS: levothyroxine 88 mcg Tablet PO (08:08)
[2022-10-17] MEDS: magnesium oxide 400 mg tablet PO ×2 (08:08→17:03)
[2022-10-17] MEDS: cefepime 1,000 MG in sodium chloride 0.9% (plus) 50 ML 100 MG IV ×2 (08:08→20:08)
[2022-10-17] MEDS: isosorbide mononitrate ER 60 mg Tablet PO (08:08)
[2022-10-17] MEDS: gabapentin 100 mg Capsule PO ×2 (08:08→17:03)
[2022-10-17] MEDS: carvedilol 6.25 mg Tablet PO ×2 (08:09→17:03)
[2022-10-17] MEDS: hydroCHLOROthiazide 25 mg Tablet PO (08:09)
[2022-10-17] MEDS: tamsulosin 0.4 mg Capsule PO ×2 (08:09→17:03)
[2022-10-17] MEDS: potassium chloride ER 20 mEq Tablet PO (08:10)
[2022-10-17] MEDS: ondansetron 2 mg/ML SDV 2 mL 4 MG IVP (08:11)
[2022-10-17 10:15] LABS: Add Urine Microscopic? NO; Charge for UA Resulting for Rev
[2022-10-17 10:26] LABS: Bilirubin Urine Neg (Negative); Blood Urine Neg (Negative); Glucose Urine UA Norm (Normal); Ketones Urine Negative (Negative); Leukocyte Esterase Urine Negative (Negative); Nitrate Urine Negative (Negative); Protein Urine Neg (Negative); Urine Appearance Clear (CLEAR); Urine Color Light yellow (Yellow); Urobilinogen Urine Norm (Negative); pH Urine 6 (5-7)
--- NOTE | 2022-10-17 15:49 | PM.PN ---
Subjective Subjective: Overnight labs and H&P reviewed. Remained afebrile overnight. Trending towards hypertension with blood pressure 177/66. Medications: Reviewed: Yes Vitals/I&O/Wt Last Vital Signs Temp 98.0 F 10/17/22 15:33 Pulse 70 10/17/22 15:33 Resp 16 10/17/22 15:33 BP 177/66 10/17/22 15:33 Pulse Ox 92 10/17/22 15:33 O2 Del Method Nasal Cannula 10/17/22 15:33 O2 Flow Rate 1.5 10/17/22 11:16 10/17/22 10/17/22 10/17/22 06:59 14:59 22:59 Intake Total 660 / 660 Balance 660 / 660 Weight last 48 hrs Weight 55.338 kg Data 10/17/22 04:30 10/17/22 04:30 Micro: Microbiology 10/16/22 18:50 Blood Culture - Preliminary Blood SPECIMEN COLLECTED 10/16/22 18:45 Blood Culture - Preliminary Blood SPECIMEN COLLECTED A&P Assessment and plan (1) Hypoxia: (2) Dehydration: (3) Pneumonia: (4) History of heart artery stent: Plan # RLL and RML Pneumonia -Sputum cultures have grown Serratia marcescens recently, sensitive to cefepime Per review of chest x-ray infiltrates appear to be slightly worse compared to October 07. She was recently discharged on Levaquin which she did not tolerate due to GI side effects. Currently on cefepime. Continue vancomycin for now. Check sputum culture. Check MRSA nares screen. -blood culture pending # Hyponatremia likely secondary to dehydration, outpatient Bactrim therapy and hydrochlorothiazide Fluid restriction Discontinue hydrochlorothiazide Hold off on fluid therapy given elevated BNP, monitor serum sodium, improving to 126 today # Hyperkalemia: Discontinue losartan currently ordered at 50 mg p.o. twice daily Monitor on tele for any EKG changes # Acute kidney injury cr stable at 1.3. D/c losartan today Hypothyroidism # Hypertension: uncontrolled. Increase imdur to 90mg daily, labetalol 10mg IVP now # Chronic systolic CHF exacerbation : Start lasix 40 mg ivp q24h while monitoring renal function Attestations Medical Necessity Statement*: iv abx for pneumonia, uncotnrolled HTN, hyponatremia Coding Level of Care Code Acute Code for Chg Fwd Diagnoses Hypoxia R09.02 Dehydration E86.0 Pneumonia J18.9 History of heart artery stent Z95.5
[2022-10-17] MEDS: FUROsemide 10 mg/mL SDV 4mL 40 MG IVP (16:49)
[2022-10-17] MEDS: labetalol 5 mg/mL SDV 20mL 10 MG IVP (16:49)
[2022-10-17] MEDS: pantoprazole 40 mg SDV IVP (21:25)
[2022-10-17] MEDS: enoxaparin 30 mg/0.3 mL Syringe SUBCUT (23:06)
[2022-10-18] VITALS (15 sets, daily range): BP systolic 145–174; BP diastolic 52–65; PULSE 60–83; RESP 15–17; TEMP 36.6–37; O2SAT 90–97
[2022-10-18] MEDS: ipratropium-albuterol 3 mL Neb INHALATION ×5 (03:00→23:07)
[2022-10-18 04:54] LABS: Basophils # 0.1 10^3/uL (0.0-0.1); Basophils % 0.6 %; Eosinophils # 0.2 10^3/uL (0.0-0.8); Hematocrit 27.8 % (37.0-47.0); Lymphocytes # 1.6 10^3/uL (0.8-4.8); Lymphocytes % 15.8 %; Mean Corpuscular HGB Conc 32.4 g/dL (30.0-36.0); Mean Corpuscular Hemoglobin 31.8 pg (28.0-34.0); Mean Corpuscular Volume 98.2 fl (81-99); Mean Platelet Volume 10.5 fL (7.4-10.4); Monocytes # 0.9 10^3/uL (0.2-0.9); Monocytes % 8.9 %; Neutrophils # 7.43 10^3/uL (1.8-7.7); Neutrophils % 72.2 %; Nucleated Red Blood Cells % 0 %; Platelet Count 414 10^3/cmm (130-400); Red Blood Count 2.83 10^6/uL (4.1-5.3); Red Cell Distribution Width 14.4 % (12.1-15.1); White Blood Count 10.3 10^3/uL (4.0-10.0)
[2022-10-18 05:17] LABS: Alanine Aminotransferase 9 U/L (0-33); Albumin Level 2.7 g/dL (3.5-5.2); Alkaline Phosphatase 57 U/L (35-105); Anion Gap 11.6 (5-19); Aspartate Amino Transferase 23 U/L (0-32); Blood Urea Nitrogen 26 mg/dL (8-23); Calcium 8.2 mg/dL (8.5-10.5); Carbon Dioxide 28 mmol/L (22-29); Chloride 89 mmol/L (98-107); Globulin 3.1 g/dL (1.3-4.6); Glucose 91 mg/dL (65-115); Osmolality Calculated 262 mOsm/kg (285-295); Potassium 4.6 mmol/L (3.5-5.1); Sodium 124 mmol/L (136-145); Total Bilirubin 0.4 mg/dL (0.15-1.2); Total Protein 5.8 g/dL (6.6-8.7)
[2022-10-18] MEDS: budesonide 0.5 mg/2 mL Neb INHALATION ×2 (07:37→19:08)
[2022-10-18] MEDS: HYDROcodone-acetaminophen 10-325 mg Tablet 1 TAB PO ×2 (08:54→20:50)
[2022-10-18] MEDS: magnesium oxide 400 mg tablet PO ×2 (09:49→17:37)
[2022-10-18] MEDS: potassium chloride ER 20 mEq Tablet PO (09:49)
[2022-10-18] MEDS: levothyroxine 88 mcg Tablet PO (09:49)
[2022-10-18] MEDS: carvedilol 6.25 mg Tablet PO ×2 (09:49→17:37)
[2022-10-18] MEDS: gabapentin 100 mg Capsule PO ×2 (09:49→17:37)
[2022-10-18] MEDS: tamsulosin 0.4 mg Capsule PO ×2 (09:50→17:37)
[2022-10-18] MEDS: cefepime 1,000 MG in sodium chloride 0.9% (plus) 50 ML 100 MG IV ×2 (09:50→20:50)
[2022-10-18] MEDS: isosorbide mononitrate ER 60 mg Tablet 90 MG PO (09:51)
[2022-10-18] MEDS: ondansetron 2 mg/ML SDV 2 mL 4 MG IVP (11:48)
[2022-10-18] MEDS: vancomycin 1,000 MG in sodium chloride 0.9% 250 ML 250 MG IV (11:48)
--- NOTE | 2022-10-18 15:07 | P.PN_ITS ---
Subjective Subjective: Patient was seen and examined this morning, she was complaining of chronic back pain, serum sodium has further trended down to 124, serum creatinine has slightly trended down to 1.2. Medications: Reviewed: Yes Medication Review Details: Generic Name Dose Route Start Last Admin Trade Name Freq PRN Reason Stop Dose Admin Hydrocodone Bitart /Acetaminophen 1 tab 10/16/22 22:16 10/18/22 08:54 Hydrocodone-Acet aminophen 10-325 M g Tablet PO 1 tab Q4H PRN Administration Pain Albuterol/Ipratrop ium 3 ml 10/17/22 00:00 10/18/22 11:25 Ipratropium-Albu terol 3 Ml Neb INHALATION Not Given Q4H.RESPIRATORY S CH Budesonide 0.5 mg 10/17/22 08:00 10/18/22 07:37 Budesonide 0.5 M g/2 Ml Neb INHALATION 0.5 mg BID.RESPIRATORY S CH Administration Carvedilol 6.25 mg 10/17/22 09:00 10/18/22 09:49 Carvedilol 6.25 Mg Tablet PO 6.25 mg BID IMMANUEL Administration Enoxaparin Sodium 30 mg 10/17/22 23:00 10/17/22 23:06 Enoxaparin 30 Mg /0.3 Ml Syringe SUBCUT 30 mg Q24H IMMANUEL Administration Felodipine 5 mg 10/17/22 09:00 10/18/22 09:49 Felodipine Er 5 Mg Tablet PO 5 mg DAILY IMMANUEL Administration Gabapentin 100 mg 10/17/22 09:00 10/18/22 09:49 Gabapentin 100 M g Capsule PO 100 mg BID IMMANUEL Administration Cefepime HCl 1,000 mg/ Sodium 50 mls @ 100 mls/ hr 10/17/22 09:00 10/18/22 10:33 Chloride IV Infused Q12H IMMANUEL Infusion Protocol Vancomycin HCl 1,0 00 mg/ 250 mls @ 250 mls /hr 10/17/22 00:00 10/17/22 07:00 Sodium Chloride IV Infused Q36H IMMANUEL Infusion Isosorbide Mononit rate 90 mg 10/18/22 09:00 10/18/22 09:51 Isosorbide [place] itrate Er 60 Mg Ta blet PO 90 mg DAILY IMMANUEL Administration Levothyroxine Sodi um 88 mcg 10/17/22 09:00 10/18/22 09:49 Levothyroxine 88 Mcg Tablet PO 88 mcg DAILY IMMANUEL Administration Losartan Potassium 50 mg 10/16/22 23:45 10/17/22 08:12 Losartan 50 Mg T ablet PO 50 mg BID IMMANUEL Administration Magnesium Oxide 400 mg 10/17/22 09:00 10/18/22 09:49 Magnesium Oxide 400 Mg Tablet PO 400 mg BID IMMANUEL Administration Ondansetron HCl 4 mg 10/16/22 22:16 10/18/22 11:48 Ondansetron 2 Mg /Ml Sdv 2 Ml IVP 4 mg Q8H PRN Administration vomiting, or N/V if npo Pantoprazole Sodiu m 40 mg 10/16/22 22:16 10/17/22 21:25 Pantoprazole 40 Mg Sdv IVP 40 mg Q24H IMMANUEL Administration Potassium Chloride 20 meq 10/17/22 09:00 10/18/22 09:49 Potassium Chlori de Er 20 Meq Table t PO 20 meq DAILY IMMANUEL Administration Tamsulosin HCl 0.4 mg 10/17/22 09:00 10/18/22 09:50 Tamsulosin 0.4 M g Capsule PO 0.4 mg BID IMMANUEL Administration Vitals/I&O/Wt Last Vital Signs Temp 98.3 F 10/18/22 12:00 Pulse 83 10/18/22 12:00 Resp 16 10/18/22 12:00 BP 165/55 10/18/22 12:00 Pulse Ox 95 10/18/22 12:00 O2 Del Method Nasal Cannula 10/18/22 12:00 O2 Flow Rate 1 10/18/22 11:26 10/18/22 10/18/22 10/18/22 06:59 14:59 22:59 Intake Total 410 / 410 Balance 410 / 410 Physical Exam Narrative: NAD HENMT: COMMON NORMALS: normocephalic and atraumatic HEAD & SCALP: normocephalic and atraumatic Resp: COMMON NORMALS: clear to auscultation bilaterally EFFORT & INSPECTION: Yes symmetric chest movement AUSCULTATION: clear to auscultation bilaterally Cardio: COMMON NORMALS: regular rate, regular rhythm, S1 normal heart sound present, S2 normal heart sound present, No gallops present (Cardio), No murmurs present (Cardio), No rub (Cardio) and Peripheral pulses 2+ throughout RATE: regular rate RHYTHM: regular rhythm HEART SOUNDS: S1 normal heart sound present and S2 normal heart sound present PERIPHERAL PULSES: Peripheral pulses 2+ throughout GI: COMMON NORMALS: Normal to inspection, nondistended, normoactive bowel sounds present, Soft to palpation, non-tender, No hepatosplenomegaly present and no masses AUSCULTATION: Yes normoactive bowel sounds PALPATION: Yes Soft to palpation and Yes No hepatosplenomegaly present RECTAL EXAM: deferred Extremity: COMMON NORMALS: no clubbing, cyanosis or edema and no pedal edema Data 10/18/22 04:05 10/18/22 04:05 Micro: Microbiology 10/17/22 18:18 MRSA Culture - Final Nose 10/16/22 18:50 Blood Culture - Preliminary Blood NEGATIVE TO DATE 10/16/22 18:45 Blood Culture - Preliminary Blood NEGATIVE TO DATE A&P Assessment and plan (1) Hypoxia: (2) Dehydration: (3) Pneumonia: (4) History of heart artery stent: Plan 82 Y O Female with past medical history of hypertension hypothyroidism, heart failure with mildly reduced ejection fraction, likely CKD stage III, mild pulmonary hypertension, was recently discharged from the hospital after being managed for pneumonia sputum culture on last admission grew Serratia, she was discharged on p.o. levofloxacin, which was later switched to Bactrim, as she was having GI upset with levofloxacin, came in this time with chief complaint of, continued fatigue shortness of breath. Currently she is being managed for. Assessment: # RLL and RML Pneumonia MRSA PCR negative BLOOD negative till date Repeat sputum culture pending -Sputum cultures have grown Serratia marcescens recently, sensitive to cefepime Per review of chest x-ray infiltrates appear to be slightly worse compared to October 07. She was recently discharged on Levaquin which she did not tolerate due to GI side effects. Currently on cefepime. Continue vancomycin for now. # Hyponatremia likely secondary to dehydration, outpatient Bactrim therapy and hydrochlorothiazide Discontinue hydrochlorothiazide Serum sodium has trended down to 124, will hold off on Lasix for now Monitor serum sodium # Hyperkalemia: Resolved losartan currently on hold #CKD versus DAXA on CKD: Renal ultrasound: Negative for hydronephrosis, left kidney appears atrophic.PVR: 198ML Admission serum creatinine is 1.3 Baseline serum creatinine appears to be around 1-1.3 Losartan currently on hold Monitor BMP Monitor intake output charting Avoid nephrotoxic Hypothyroidism: Continue levothyroxine Mild pulmonary hypertension: Cardiology and pulmonary follow-up as outpatient. # Hypertension: uncontrolled. Increase imdur to 90mg daily, labetalol 10mg IVP now # HFrEF: Currently compensated. Most recent 2D echo has shown; LV systolic function is mild to moderately reduced with EF of?40%.Mild to moderate global hypokinesis.?Mild mitral regurgitation.?Mild tricuspid regurgitation. Mild pulmonary hypertension. She was initially on Lasix 40 IV daily. Currently on hold.Has denied any shortness of breath appears euvolemic. Monitor intake output charting Daily weight. Attestations Medical Necessity Statement*: Needs to be in hospital for management of pneumonia need for IV antibiotics. Coding Level of Care Code 64850 Diagnoses Hypoxia R09.02 Dehydration E86.0 Pneumonia J18.9 History of heart artery stent Z95.5
[2022-10-18] MEDS: sodium chloride 1 gm Tablet 2 GM PO (17:37)
[2022-10-18] MEDS: docusate sodium 100 mg Capsule PO (17:37)
[2022-10-18] MEDS: pantoprazole 40 mg SDV IVP (22:37)
[2022-10-18] MEDS: enoxaparin 30 mg/0.3 mL Syringe SUBCUT (22:38)
[2022-10-19] VITALS (16 sets, daily range): BP systolic 128–164; BP diastolic 55–70; PULSE 57–71; RESP 16–20; TEMP 36.6–37.1; O2SAT 90–97
[2022-10-19] MEDS: HYDROcodone-acetaminophen 10-325 mg Tablet 1 TAB PO ×4 (01:55→21:05)
[2022-10-19 05:00] LABS: Basophils # 0.1 10^3/uL (0.0-0.1); Basophils % 0.8 %; Eosinophils # 0.2 10^3/uL (0.0-0.8); Eosinophils % 1.5 %; Hematocrit 26.3 % (37.0-47.0); Hemoglobin 8.6 g/dL (11.5-15.3); Lymphocytes # 1.7 10^3/uL (0.8-4.8); Lymphocytes % 15.2 %; Mean Corpuscular HGB Conc 32.7 g/dL (30.0-36.0); Mean Corpuscular Hemoglobin 32.1 pg (28.0-34.0); Mean Corpuscular Volume 98.1 fl (81-99); Mean Platelet Volume 10.3 fL (7.4-10.4); Monocytes % 9.1 %; Neutrophils # 8.17 10^3/uL (1.8-7.7); Neutrophils % 72.9 %; Nucleated Red Blood Cells % 0 %; Platelet Count 386 10^3/cmm (130-400); Red Blood Count 2.68 10^6/uL (4.1-5.3); Red Cell Distribution Width 14.6 % (12.1-15.1); White Blood Count 11.2 10^3/uL (4.0-10.0)
[2022-10-19 05:23] LABS: Anion Gap 12.7 (5-19); Blood Urea Nitrogen 21 mg/dL (8-23); Calcium 8.1 mg/dL (8.5-10.5); Carbon Dioxide 27 mmol/L (22-29); Chloride 91 mmol/L (98-107); Glucose 106 mg/dL (65-115); Osmolality Calculated 265 mOsm/kg (285-295); Potassium 4.7 mmol/L (3.5-5.1); Sodium 126 mmol/L (136-145)
[2022-10-19] MEDS: ipratropium-albuterol 3 mL Neb INHALATION ×4 (08:06→20:23)
[2022-10-19] MEDS: budesonide 0.5 mg/2 mL Neb INHALATION ×2 (08:06→20:22)
[2022-10-19] MEDS: cefepime 1,000 MG in sodium chloride 0.9% (plus) 50 ML 100 MG IV (09:44)
[2022-10-19] MEDS: levothyroxine 88 mcg Tablet PO (09:44)
[2022-10-19] MEDS: sodium chloride 1 gm Tablet 2 GM PO ×2 (09:45→17:09)
[2022-10-19] MEDS: isosorbide mononitrate ER 60 mg Tablet 90 MG PO (09:45)
[2022-10-19] MEDS: magnesium oxide 400 mg tablet PO ×2 (09:45→17:09)
[2022-10-19] MEDS: tamsulosin 0.4 mg Capsule PO ×2 (09:46→17:09)
[2022-10-19] MEDS: potassium chloride ER 20 mEq Tablet PO (09:46)
[2022-10-19] MEDS: carvedilol 6.25 mg Tablet PO ×2 (09:46→17:09)
[2022-10-19] MEDS: docusate sodium 100 mg Capsule PO ×2 (09:46→17:10)
[2022-10-19] MEDS: gabapentin 100 mg Capsule PO ×2 (09:46→17:09)
--- NOTE | 2022-10-19 11:24 | PC.SOCIAL ---
IMM Update pg 2 of IMM updated and reviewed w/ patient. Copy provided and copy dated, initialed and placed in chart.
--- NOTE | 2022-10-19 15:42 | P.PN_ITS ---
Subjective Subjective: Patient was seen and examined this morning, serum sodium has improved to 126, creatinine has decreased. Medications: Reviewed: Yes Medication Review Details: Generic Name Dose Route Start Last Admin Trade Name [place] PRN Reason Stop Dose Admin Hydrocodone Bitart /Acetaminophen 1 tab 10/16/22 22:16 10/19/22 15:01 Hydrocodone-Acet aminophen 10-325 M g Tablet PO 1 tab Q4H PRN Administration Pain Albuterol/Ipratrop ium 3 ml 10/17/22 00:00 10/19/22 11:48 Ipratropium-Albu terol 3 Ml Neb INHALATION 3 ml Q4H.RESPIRATORY S CH Administration Budesonide 0.5 mg 10/17/22 08:00 10/19/22 08:06 Budesonide 0.5 M g/2 Ml Neb INHALATION 0.5 mg BID.RESPIRATORY S CH Administration Carvedilol 6.25 mg 10/17/22 09:00 10/19/22 09:46 Carvedilol 6.25 Mg Tablet PO 6.25 mg BID IMMANUEL Administration Docusate Sodium 100 mg 10/18/22 18:00 10/19/22 09:46 Docusate Sodium 100 Mg Capsule PO 100 mg BID IMMANUEL Administration Enoxaparin Sodium 30 mg 10/17/22 23:00 10/18/22 22:38 Enoxaparin 30 Mg /0.3 Ml Syringe SUBCUT 30 mg Q24H IMMANUEL Administration Felodipine 5 mg 10/17/22 09:00 10/19/22 09:46 Felodipine Er 5 Mg Tablet PO 5 mg DAILY IMMANUEL Administration Gabapentin 100 mg 10/17/22 09:00 10/19/22 09:46 Gabapentin 100 M g Capsule PO 100 mg BID IMMANUEL Administration Vancomycin HCl 1,0 00 mg/ 250 mls @ 250 mls /hr 10/17/22 00:00 10/18/22 15:42 Sodium Chloride IV Infused Q36H IMMANUEL Infusion Isosorbide Mononit rate 90 mg 10/18/22 09:00 10/19/22 09:45 Isosorbide [place] itrate Er 60 Mg Ta blet PO 90 mg DAILY IMMANUEL Administration Levothyroxine Sodi um 88 mcg 10/17/22 09:00 10/19/22 09:44 Levothyroxine 88 Mcg Tablet PO 88 mcg DAILY IMMANUEL Administration Losartan Potassium 50 mg 10/16/22 23:45 10/17/22 08:12 Losartan 50 Mg T ablet PO 50 mg BID IMMANUEL Administration Magnesium Oxide 400 mg 10/17/22 09:00 10/19/22 09:45 Magnesium Oxide 400 Mg Tablet PO 400 mg BID IMMANUEL Administration Ondansetron HCl 4 mg 10/16/22 22:16 10/18/22 11:48 Ondansetron 2 Mg /Ml Sdv 2 Ml IVP 4 mg Q8H PRN Administration vomiting, or N/V if npo Pantoprazole Sodiu m 40 mg 10/16/22 22:16 10/18/22 22:37 Pantoprazole 40 Mg Sdv IVP 40 mg Q24H IMMANUEL Administration Potassium Chloride 20 meq 10/17/22 09:00 10/19/22 09:46 Potassium Chlori de Er 20 Meq Table t PO 20 meq DAILY IMMANUEL Administration Sodium Chloride 2 gm 10/18/22 18:00 10/19/22 09:45 Sodium Chloride 1 Gm Tablet PO 2 gm BID IMMANUEL Administration Tamsulosin HCl 0.4 mg 10/17/22 09:00 10/19/22 09:46 Tamsulosin 0.4 M g Capsule PO 0.4 mg BID IMMANUEL Administration Vitals/I&O/Wt Last Vital Signs Temp 97.8 F 10/19/22 15:34 Pulse 62 10/19/22 15:34 Resp 16 10/19/22 15:34 BP 156/55 10/19/22 15:34 Pulse Ox 91 10/19/22 15:34 O2 Del Method Room Air 10/19/22 15:34 O2 Flow Rate 1 10/19/22 08:06 10/19/22 10/19/22 10/19/22 06:59 14:59 22:59 Intake Total 480 / 480 Balance 480 / 480 Physical Exam Narrative: NAD HENMT: COMMON NORMALS: normocephalic and atraumatic HEAD & SCALP: normocephalic and atraumatic Resp: COMMON NORMALS: clear to auscultation bilaterally EFFORT & INSPECTION: Yes symmetric chest movement AUSCULTATION: clear to auscultation bilaterally Cardio: COMMON NORMALS: regular rate, regular rhythm, S1 normal heart sound present, S2 normal heart sound present, No gallops present (Cardio), No murmurs present (Cardio), No rub (Cardio) and Peripheral pulses 2+ throughout RATE: regular rate RHYTHM: regular rhythm HEART SOUNDS: S1 normal heart sound present and S2 normal heart sound present PERIPHERAL PULSES: Peripheral pulses 2+ throughout GI: COMMON NORMALS: Normal to inspection, nondistended, normoactive bowel sounds present, Soft to palpation, non-tender, No hepatosplenomegaly present and no masses AUSCULTATION: Yes normoactive bowel sounds PALPATION: Yes Soft to palpation and Yes No hepatosplenomegaly present RECTAL EXAM: deferred Extremity: COMMON NORMALS: no clubbing, cyanosis or edema and no pedal edema Data 10/19/22 04:21 10/19/22 04:21 Micro: Microbiology 10/17/22 18:18 MRSA Culture - Final Nose A&P Assessment and plan (1) Hypoxia: (2) Dehydration: (3) Pneumonia: (4) History of heart artery stent: Plan 82 Y O Female with past medical history of hypertension hypothyroidism, heart failure with mildly reduced ejection fraction, likely CKD stage III, mild pulmonary hypertension, was recently discharged from the hospital after being managed for pneumonia sputum culture on last admission grew Serratia, she was discharged on p.o. levofloxacin, which was later switched to Bactrim, as she was having GI upset with levofloxacin, came in this time with chief complaint of, continued fatigue shortness of breath. Currently she is being managed for. Assessment: # RLL and RML Pneumonia MRSA PCR negative BLOOD negative till date Repeat sputum culture pending -Sputum cultures have grown Serratia marcescens recently, sensitive to cefepime Per review of chest x-ray infiltrates appear to be slightly worse compared to October 07. She was recently discharged on Levaquin which she did not tolerate due to GI side effects. Currently on cefepime. Continue vancomycin for now. # Hyponatremia likely secondary to dehydration, outpatient Bactrim therapy and hydrochlorothiazide Discontinue hydrochlorothiazide Serum sodium has trended down to 124, will hold off on Lasix for now Monitor serum sodium # Hyperkalemia: Resolved losartan currently on hold #CKD versus DAXA on CKD: Renal ultrasound: Negative for hydronephrosis, left kidney appears atrophic.PVR: 198ML Admission serum creatinine is 1.3 Baseline serum creatinine appears to be around 1-1.3 Losartan currently on hold Monitor BMP Monitor intake output charting Avoid nephrotoxic Hypothyroidism: Continue levothyroxine Mild pulmonary hypertension: Cardiology and pulmonary follow-up as outpatient. # Hypertension: uncontrolled. Increase imdur to 90mg daily, labetalol 10mg IVP now # HFrEF: Currently compensated. Most recent 2D echo has shown; LV systolic function is mild to moderately reduced with EF of?40%.Mild to moderate global hypokinesis.?Mild mitral regurgitation.?Mild tricuspid regurgitation. Mild pulmonary hypertension. She was initially on Lasix 40 IV daily. Currently on hold.Has denied any shortness of breath appears euvolemic. Monitor intake output charting Daily weight. Attestations Medical Necessity Statement*: Needs to be in hospital for management of hyponatremia, IV antibiotics, pneumonia Coding Level of Care Code Acute Code for [facility] Fwd Diagnoses Hypoxia R09.02 Dehydration E86.0 Pneumonia J18.9 History of heart artery stent Z95.5
[2022-10-19] MEDS: pantoprazole 40 mg SDV IVP (21:05)
[2022-10-19 23:45] LABS: Vancomycin Trough 9.3 ug/mL (10-15)
[2022-10-20] VITALS (11 sets, daily range): BP systolic 161–163; BP diastolic 64–77; PULSE 61–80; RESP 16–17; TEMP 36.7–37.2; O2SAT 87–96
[2022-10-20] MEDS: enoxaparin 30 mg/0.3 mL Syringe SUBCUT (00:06)
[2022-10-20] MEDS: vancomycin 750 MG in sodium chloride 0.9% 250 ML 250 MG IV (00:07)
[2022-10-20] MEDS: ipratropium-albuterol 3 mL Neb INHALATION ×4 (00:43→11:25)
[2022-10-20] MEDS: HYDROcodone-acetaminophen 10-325 mg Tablet 1 TAB PO ×2 (04:52→11:41)
[2022-10-20] MEDS: budesonide 0.5 mg/2 mL Neb INHALATION (07:32)
[2022-10-20 08:41] LABS: Basophils # 0.1 10^3/uL (0.0-0.1); Basophils % 0.9 %; Eosinophils # 0.2 10^3/uL (0.0-0.8); Eosinophils % 1.6 %; Hematocrit 30.9 % (37.0-47.0); Hemoglobin 9.9 g/dL (11.5-15.3); Lymphocytes # 1.3 10^3/uL (0.8-4.8); Lymphocytes % 10.2 %; Mean Corpuscular Hemoglobin 32.2 pg (28.0-34.0); Mean Corpuscular Volume 100.7 fl (81-99); Mean Platelet Volume 10.3 fL (7.4-10.4); Monocytes # 0.9 10^3/uL (0.2-0.9); Monocytes % 7.1 %; Neutrophils # 10.25 10^3/uL (1.8-7.7); Neutrophils % 79.7 %; Nucleated Red Blood Cells % 0 %; Platelet Count 427 10^3/cmm (130-400); Red Blood Count 3.07 10^6/uL (4.1-5.3); Red Cell Distribution Width 14.8 % (12.1-15.1); White Blood Count 12.9 10^3/uL (4.0-10.0)
[2022-10-20 09:08] LABS: Blood Urea Nitrogen 16 mg/dL (8-23); Calcium 8.3 mg/dL (8.5-10.5); Carbon Dioxide 24 mmol/L (22-29); Chloride 93 mmol/L (98-107); Glucose 112 mg/dL (65-115); Osmolality Calculated 268 mOsm/kg (285-295); Sodium 128 mmol/L (136-145)
[2022-10-20] MEDS: isosorbide mononitrate ER 60 mg Tablet 90 MG PO (09:35)
[2022-10-20] MEDS: levothyroxine 88 mcg Tablet PO (09:36)
[2022-10-20] MEDS: sodium chloride 1 gm Tablet 2 GM PO (09:36)
[2022-10-20] MEDS: docusate sodium 100 mg Capsule PO (09:36)
[2022-10-20] MEDS: magnesium oxide 400 mg tablet PO (09:36)
[2022-10-20] MEDS: gabapentin 100 mg Capsule PO (09:36)
[2022-10-20] MEDS: carvedilol 6.25 mg Tablet PO (09:36)
[2022-10-20] MEDS: tamsulosin 0.4 mg Capsule PO (09:37)
[2022-10-20] MEDS: potassium chloride ER 20 mEq Tablet PO (09:37)
[2022-10-20] MEDS: cefepime 1,000 MG in sodium chloride 0.9% (plus) 50 ML 100 MG IV (09:38)
[2022-10-20] MEDS: enoxaparin 40 mg/0.4 mL Syringe SUBCUT (11:42)
--- NOTE | 2022-10-20 12:23 | PM.DCS ---
Discharge Providers Date of Admission: 10/16/22 19:02 Date of Discharge: October 20, 2022 Attending Provider at Admission: Nelson Beltran Attending Provider at Discharge: Steven Bullock MD Primary Care Provider: Doe Bui MD Diagnoses at Discharge Discharge Diagnosis (1) Hypoxia: Status: Acute (2) Dehydration: Status: Acute (3) Pneumonia: Status: Acute (4) History of heart artery stent: Status: Acute Permanent problem details: 2018 after heart attack Reason for Visit Reason for Visit: Weakness, low 02 at home Hospital Course Hospital Course 82 Y O Female with past medical history of hypertension hypothyroidism, heart failure with mildly reduced ejection fraction, likely CKD stage III, mild pulmonary hypertension, was recently discharged from the hospital after being managed for pneumonia sputum culture on last admission grew [place], she was discharged on p.o. levofloxacin, which was later switched to Bactrim, as she was having GI upset with levofloxacin, came in this time with chief complaint of, continued fatigue, shortness of breath.She was admitted for the management of pneumonia: MRSA PCR was negative, blood culture was negative, repeat sputum culture could not be obtained during the hospital stay, she was kept on broad-spectrum antibiotic Vanco and cefepime, to which she responded fairly well, at the time of discharge her shortness of breath had significantly improved, she qualified for 2 L oxygen on discharge on exertion, she was afebrile on discharge. Given the limited option for p.o. antibiotics she was discharged on p.o. levofloxacin for another 7 days To complete the antibiotic course for pneumonia. During the hospital stay patient was also managed for Hyponatremia which appears to be likely chronic hyponatremia, since hydrochlorothiazide has been kept on hold on discharge, as serum sodium is still improving and slowly progressing likely it was the baseline, serum sodium on discharge was 128, she was also discharged on, p.o. salt tablets, 1 g twice daily for another 7 days, torsemide has been briefly kept on discharge as the patient currently euvolemic, her kidney function was also recovering, serum creatinine was improving at the time of discharge, she has been asked to follow-up with repeat BMP in a week, and visit the primary care physician.At that point in time decision regarding initiation of torsemide as well as hydrochlorothiazide can be taken.At the Same time she has been asked that if she start experiencing any worsening shortness of, weight gain of more than 5 pounds in 3 days, or worsening bilateral lower extremity swelling, she can resume her torsemide. During the hospital stay patient was also managed for hyperkalemia, valsartan was on hold, hyperkalemia could also have been contributed by recent Bactrim use, at the time of discharge hyperkalemia had resolved.Overall patient responded well to above medical management and she was discharged in stable condition to home she will continue to follow primary care physician as outpatient. Physical Exam Narrative: NAD HENMT: COMMON NORMALS: normocephalic and atraumatic HEAD & SCALP: normocephalic and atraumatic Resp: COMMON NORMALS: clear to auscultation bilaterally EFFORT & INSPECTION: Yes symmetric chest movement AUSCULTATION: clear to auscultation bilaterally Cardio: COMMON NORMALS: regular rate, regular rhythm, S1 normal heart sound present, S2 normal heart sound present, No gallops present (Cardio), No murmurs present (Cardio), No rub (Cardio) and Peripheral pulses 2+ throughout RATE: regular rate RHYTHM: regular rhythm HEART SOUNDS: S1 normal heart sound present and S2 normal heart sound present PERIPHERAL PULSES: Peripheral pulses 2+ throughout GI: COMMON NORMALS: Normal to inspection, nondistended, normoactive bowel sounds present, Soft to palpation, non-tender, No hepatosplenomegaly present and no masses AUSCULTATION: Yes normoactive bowel sounds PALPATION: Yes Soft to palpation and Yes No hepatosplenomegaly present RECTAL EXAM: deferred Extremity: COMMON NORMALS: no clubbing, cyanosis or edema and no pedal edema Discharge Data Studies Completed and Pending Completed Studies During Hospitalization Category Date Time Status XR chest 1V portable [id number] Stat Exams 10/16/22 15:46 Completed US renal BI* [id number] Routine Ultrasound 10/16/22 22:16 Completed Pending at discharge Category Date Time Status BMP [Basic Metabolic Panel] AM LABS Lab 10/21/22 04:00 Ordered Blood Culture Stat Lab 10/16/22 18:50 Results CBC Auto Diff [Complete Blood Count w/Auto] AM LABS Lab 10/21/22 04:00 Ordered Sputum Culture and Gram Stain Stat Lab 10/16/22 21:17 Uncollected Radiology Impressions Chest X-Ray 10/16/22 15:46 IMPRESSION: 1. Stable opacification in the right mid lung and right lower lobe suspicious for pneumonia. Recommend followup chest imaging to insure resolution of these findings. 2. Stable fullness with calcification in the right hilar region, this corresponds to an enlarged partially calcified right hilar lymph node noted on the prior CT scan. 3. Incidental/nonacute findings are listed in the report. Renal Ultrasound 10/16/22 22:16 IMPRESSION: 1. Negative for hydronephrosis, renal calculus or urinary mass. 2. Left kidney appears somewhat atrophic measuring 7.7 cm in length. 3. Postvoid urinary bladder volume 198 mL. Laboratory Results WBC 12.9 10^3/uL (4.0-10.0) H 10/20/22 08:25 RBC 3.07 10^6/uL (4.1-5.3) L 10/20/22 08:25 Hgb 9.9 g/dL (11.5-15.3) L 10/20/22 08:25 Hct 30.9 % (37.0-47.0) L 10/20/22 08:25 MCV 100.7 fl (81-99) H 10/20/22 08:25 MCH 32.2 pg (28.0-34.0) 10/20/22 08:25 MCHC 32.0 g/dL (30.0-36.0) 10/20/22 08:25 RDW 14.8 % (12.1-15.1) 10/20/22 08:25 Plt Count 427 10^3/cmm (130-400) H 10/20/22 08:25 MPV 10.3 fL (7.4-10.4) 10/20/22 08:25 Neut % (Auto) 79.7 % 10/20/22 08:25 Lymph % (Auto) 10.2 % 10/20/22 08:25 [place] % (Auto) 7.1 % 10/20/22 08:25 Eos % (Auto) 1.6 % 10/20/22 08:25 Baso % (Auto) 0.9 % 10/20/22 08:25 Neut # (Auto) 10.25 10^3/uL (1.8-7.7) H 10/20/22 08:25 Lymph # (Auto) 1.3 10^3/uL (0.8-4.8) 04/26/23 08:25 [place] # (Auto) 0.9 10^3/uL (0.2-0.9) 10/20/22 08:25 Eos # (Auto) 0.2 10^3/uL (0.0-0.8) 10/20/22 08:25 Baso # (Auto) 0.1 10^3/uL (0.0-0.1) 10/20/22 08:25 Nucleated RBC % (auto) 0 % 10/20/22 08:25 Nucleated RBCs # 0.0 /100WBC 10/20/22 08:25 Sodium 128 mmol/L (136-145) L 10/20/22 08:25 Potassium 5.0 mmol/L (3.5-5.1) 10/20/22 08:25 Chloride 93 mmol/L (98-107) L 10/20/22 08:25 Carbon Dioxide 24 mmol/L (22-29) 10/20/22 08:25 Anion Gap 16.0 (5-19) 10/20/22 08:25 BUN 16 mg/dL (8-23) 10/20/22 08:25 Creatinine 0.9 mg/dL (0.5-0.9) 10/20/22 08:25 GFR Calculation Not Reportable 10/20/22 08:25 Glucose 112 mg/dL (65-115) 10/20/22 08:25 Estimat Average Glucose 108 10/16/22 16:02 Hemoglobin A1c 5.4 % (4.0-6.0) 10/16/22 16:02 Calculated Osmolality 268 mOsm/kg (285-295) L 10/20/22 08:25 Lactic Acid 1.3 mmol/L (0.5-2.2) 10/16/22 16:02 Calcium 8.3 mg/dL (8.5-10.5) L 10/20/22 08:25 Magnesium 1.9 mg/dL (1.7-2.3) 10/16/22 16:02 Total Bilirubin 0.4 mg/dL (0.15-1.2) 10/18/22 04:05 AST 23 U/L (0-32) 10/18/22 04:05 ALT 9 U/L (0-33) 10/18/22 04:05 Alkaline Phosphatase 57 U/L (35-105) 10/18/22 04:05 C-Reactive Protein 59.8 mg/L (0.0-4.9) H 10/16/22 16:02 NT-Pro-B Natriuret Pep 22840 pg/mL (0-450) H 10/17/22 04:30 Total Protein 5.8 g/dL (6.6-8.7) L 10/18/22 04:05 Albumin 2.7 g/dL (3.5-5.2) L 10/18/22 04:05 Globulin 3.1 g/dL (1.3-4.6) 10/18/22 04:05 Triglycerides 151 mg/dL (0-150) H 10/16/22 16:02 Cholesterol 168 mg/dL (0-200) 10/16/22 16:02 LDL Cholesterol, Calc 97 mg/dL (50-129) 10/16/22 16:02 HDL Cholesterol 41 mg/dL (60-100) L 10/16/22 16:02 LDL/HDL Ratio 2.37 RATIO (0.00-3.22) 10/16/22 16:02 Cholesterol/HDL Ratio 4.10 mg/dL (0.0-4.40) 10/16/22 16:02 Procalcitonin 0.17 ng/mL (0-0.5) 10/16/22 16:02 Procalcitonin 0.19 ng/mL (0-0.5) 10/16/22 16:02 TSH 3.30 uIU/mL (0.27-4.20) 10/16/22 16:02 Urine Color Light yellow (Yellow) 10/17/22 09:47 Urine Appearance Clear (CLEAR) 10/17/22 09:47 Urine pH 6 (5-7) 10/17/22 09:47 Ur Specific [place] 1.010 (1.005-1.030) 10/17/22 09:47 Urine Protein Neg (Negative) 10/17/22 09:47 Urine Glucose (UA) Norm (Normal) 10/17/22 09:47 Urine Ketones Negative (Negative) 10/17/22 09:47 Urine Blood Neg (Negative) 10/17/22 09:47 Urine Nitrate Negative (Negative) 10/17/22 09:47 Urine Bilirubin Neg (Negative) 10/17/22 09:47 Urine Urobilinogen Norm mg/dL (Negative) 10/17/22 09:47 Ur Leukocyte Esterase Negative (Negative) 10/17/22 09:47 Vancomycin Trough 9.3 ug/mL (10-15) L 10/19/22 23:20 Vitals Last Vital Signs Temp 98.0 F 10/20/22 12:00 Pulse 67 10/20/22 12:00 Resp 16 10/20/22 12:00 BP 163/64 10/20/22 12:00 Pulse Ox 91 10/20/22 12:00 O2 Del Method Room Air 10/20/22 11:25 O2 Flow Rate 1 10/20/22 07:30 Discharge Plan Discharge Patient Disposition: Home Health Service Condition: Stable Prescriptions: New levofloxacin 750 mg tablet 750 mg PO DAILY 7 Days Qty: 7 0RF sodium chloride 1,000 mg Tablet,Soluble 1,000 mg PO BID Qty: 14 0RF Continued levothyroxine 88 mcg tablet 88 mcg PO DAILY Qty: 90 3RF ondansetron HCl 4 mg tablet 4 mg PO Q6H PRN (Reason: nausea and vomiting) Qty: 30 3RF valsartan 160 mg tablet See Rx Instructions .ROUTE .COMPLEX Qty: 180 3RF Dose Instruction: Take 1 tablet by mouth twice daily Rx Instructions: Take 1 tablet by mouth twice daily isosorbide mononitrate 60 mg tablet extended release 24 hr See Rx Instructions .ROUTE .COMPLEX Qty: 90 3RF Dose Instruction: Take 1 tablet by mouth once daily Rx Instructions: Take 1 tablet by mouth once daily magnesium oxide 400 mg (241.3 mg magnesium) tablet See Rx Instructions .ROUTE .COMPLEX Qty: 180 3RF Dose Instruction: Take 1 tablet by mouth twice daily Rx Instructions: Take 1 tablet by mouth twice daily hydrocodone-acetaminophen 10-325 mg tablet 1 tab PO Q4H PRN (Reason: Pain) 30 Days Qty: 180 0RF tamsulosin 0.4 mg capsule 0.4 mg PO BID felodipine 10 mg tablet extended release 24 hr 5 mg PO DAILY gabapentin 100 mg capsule 100 mg PO BID carvedilol 3.125 mg tablet 6.25 mg PO BID 30 Days Qty: 120 0RF albuterol sulfate 90 mcg/actuation HFA aerosol inhaler 1 inh inhalation Q6H PRN (Reason: shortness of breath or wheezing) Qty: 8.5 0RF benzonatate 100 mg Capsule 100 mg PO TID PRN (Reason: Cough) Held torsemide 5 mg tablet 5 mg PO DAILY Qty: 90 3RF Hold Instructions: Resume on 10/27/22. potassium chloride 20 mEq tablet extended release 20 meq PO DAILY Hold Instructions: Resume on 10/27/22. hydrochlorothiazide 25 mg tablet 25 mg PO DAILY Hold Instructions: Resume on 10/27/22. Discontinued sulfamethoxazole-trimethoprim [Bactrim DS] 800-160 mg tablet 1 tab PO BID 5 Days Qty: 10 0RF Discharge Orders: Discharge Order (Routine); Ordered 10/20/22 Ordered By: Steven Bullock Other Ambulatory Orders: Basic Metabolic Panel (Routine) Timeframe: 1 Week Facility: [facility] - Location: Lab - Main Lab Ordered By: Steven Bullock Referrals: [facility] [Outside] Doe Bui MD [Primary Care Provider] - 10/29/22 11:20 am Patient Instructions: Levofloxacin (By mouth), Sodium Chloride (By mouth), Hyponatremia, Pneumonia (DC), Opioid Safety, Pneumonia Stoplight Plan of Treatment: Patient will need to follow up with her PCP with repaet BMP before initiating the held medications. Discharge Attestations Time Spent in Discharge Care*: less than 30 min Quality Metrics Clinical Quality Measures [ No reported AMI, CVA or VTE this stay] Coding Level of Care Code Acute Code for Chg Fwd Diagnoses Hypoxia R09.02 Dehydration E86.0 Pneumonia J18.9 History of heart artery stent Z95.5
== END 2022-10-20 15:00 | disposition home health service (06) | DRG 193 ==
LOC: ER 19:11 → MEDSURG 19:56
PROVIDERS: Emergency Medicine; Family Medicine; Student in an Organized Health Care Education/Training Program; Admitting Provider Internal Medicine; Emergency Provider Emergency Medicine; PCP Family Medicine; Visit Provider Internal Medicine
DX: J18.9 Pneumonia, unspecified organism (principal); I50.23 Acute on chronic systolic (congestive) heart failure; N17.9 Acute kidney failure, unspecified; I13.0 Hypertensive heart and chronic kidney disease with heart failure and stage 1 through stage 4 chronic kidney disease, or unspecified chronic kidney disease; E87.1 Hypo-osmolality and hyponatremia; B96.89 Other specified bacterial agents as the cause of diseases classified elsewhere; E03.9 Hypothyroidism, unspecified; N18.30 Chronic kidney disease, stage 3 unspecified; I27.20 Pulmonary hypertension, unspecified; Z87.01 Personal history of pneumonia (recurrent); E87.5 Hyperkalemia; Z79.891 Long term (current) use of opiate analgesic; Z79.51 Long term (current) use of inhaled steroids; K59.00 Constipation, unspecified; G89.29 Other chronic pain; M54.50 Low back pain, unspecified; I25.10 Atherosclerotic heart disease of native coronary artery without angina pectoris; Z95.5 Presence of coronary angioplasty implant and graft; I25.2 Old myocardial infarction; E86.0 Dehydration
CPT/HCPCS: 36415; 71045; 76770; 80048; 80053; 80061; 80202; 81003; 83036; 83605; 83735; 83880; 84145; 84443; 85025; 86140; 87040; 87641; 94640; 94664; 94760; 96365; 96367; 96372; 96375; 97116; 97161; 97166; 97530; 99285; C9113; J0692; J1650; J1940; J2405; J3370; J3490; J7050; J7626

== ENCOUNTER 2022-10-24 08:59 | Inpatient (IN) | payer MEDICARE, OTHER, SELFPAY ==
[2022-10-24] VITALS (27 sets, daily range): BP systolic 142–211; BP diastolic 51–75; PULSE 61–88; RESP 14–26; TEMP 36.6–37; O2SAT 94–99
--- NOTE | 2022-10-24 09:23 | XRR_ITS ---
PROCEDURE INFORMATION: Exam: XR Chest Exam date and time: 10/24/2022 8:48 AM Age: 82 years old Clinical indication: Shortness of breath; Additional info: Wheezing TECHNIQUE: Imaging protocol: Radiologic exam of the chest. Views: 1 view. COMPARISON: CR (CHEST, ) 10/16/2022 3:52 PM FINDINGS: Lungs: There is stable consolidation in the right mid to lower lung. The left lung is clear. Pleural spaces: There is no pleural effusion or pneumothorax. Heart/Mediastinum: There is mild enlargement of the cardiac silhouette. Bones/joints: Bones are unremarkable. XR/XR chest 1V portable [id number] IMPRESSION: Stable right lung consolidation.
--- NOTE | 2022-10-24 09:25 | W.ED.NAVMDI ---
Documented by User: NATIVIDAD Yates 10/24/22 11:37 HPI - Nausea/Vomiting/Diarrhea General: Chief complaint: Nausea/Vomiting/Diarrhea Stated complaint: sick Time Seen by Provider: 10/24/22 09:14 History of Present Illness: Patient is an 82-year-old female who comes to the ED with nausea. Patient has a history of hypertension, hypothyroidism, CHF, CKD stage III. Patient is on 2 L of oxygen via nasal cannula at home. She was recently hospitalized for pneumonia and discharged back on October 20. Since being discharged from the hospital she has been very nauseous and has decreased appetite. She is not eating or drinking much over the past several days due to the increased nausea. Patient denies any worsening cough or shortness of breath. She denies any episodes of emesis, chest pain or fevers. Denies abdominal pain as well. She has no bladder or bowel complaints. Patient endorses some fatigue and feeling restless. Associated nausea: Yes Associated symtoms: Reports fatigue and nausea; Denies change in vision, chest pain, dysuria, headache(s) or palpitations Review of Systems Const: Reports: change in appetite (Decreased), fatigue and other (Restlessness); Denies: fever(s) or chills Eyes: Denies: change in vision or eye discomfort ENMT: Denies: throat pain, odynophagia, nasal discharge or nasal congestion Card: Denies: chest pain, palpitations, edema, swelling of feet/ankles, dyspnea on exertion or orthopnea Resp: Denies: dyspnea, productive cough or non-productive cough GI: Reports: nausea; Denies: abdominal pain, vomiting, diarrhea, constipation or hematochezia : Denies: flank pain, dysuria or hematuria Musc: Denies: neck pain, back pain or extremity swelling Skin/Breast: Denies: rash or new lesions Neuro: Denies: headache(s), numbness in extremities or weakness in extremities PFSH ED PFSH: Medical History Chronic low back pain Has had recent back surgery Coronary artery disease Dehydration History of [place] (myocardial infarction) 2017--had coronary artery stent placed Hypertension Chronic hypertension diagnosed at the age of 31. Follows up with cardiology Dr. Castellanos as well as her primary care provider. Hypoxia No pertinent past medical history Denies diabetes, asthma, seizures, DVT/PE PCP: Dr. Bui Pneumonia Vaginal prolapse 09/30/2021--grade 3-4 cystocele, grade 3 vault prolapse, grade 1 rectocele Surgical History History of back surgery March 2021[place] [facility] [place] History of heart artery stent 2017 after heart attack History of tubal ligation In her mid 30s---done through supra umbilical minilaparotomy incision S/P hysterectomy Vaginal hysterectomy for prolapse performed by Dr. George in 2018. Her ovaries were not removed. Family History Mother Heart disease Hypertension Colon cancer diagnosed in her late 60s Daughter Heart disease Family/Other Breast cancer maternal aunt, age at diagnosis unknown Social History Smoking and tobacco status: never smoked Substance/Drug Use: never Physical Exam Const: COMMON NORMALS: patient oriented x3 and alert GENERAL APPEARANCE: cooperative and other (Pallor appearing) HENMT: COMMON NORMALS: normocephalic HEAD & SCALP: normocephalic MOUTH: Normal oral and palatal mucosa present THROAT: posterior oropharynx normal and uvula midline Neck/C-Spine: COMMON NORMALS: supple GENERAL: Yes normal visual inspection Resp: COMMON NORMALS: normal respiratory effort, No retractions, No use of accessory muscles and clear to auscultation bilaterally AUSCULTATION: clear to auscultation bilaterally Cardio: COMMON NORMALS: regular rate, regular rhythm, S1 normal heart sound present, S2 normal heart sound present, No gallops present (Cardio), No clicks present (Cardio), No murmurs present (Cardio) and Peripheral pulses 2+ throughout RATE: regular rate RHYTHM: regular rhythm HEART SOUNDS: S1 normal heart sound present and S2 normal heart sound present PERIPHERAL PULSES: Peripheral pulses 2+ throughout GI: COMMON NORMALS: Normal to inspection, nondistended, normoactive bowel sounds present, Soft to palpation, non-tender and no masses PALPATION: Yes Soft to palpation : COMMON NORMALS: Yes no CVA tenderness BLADDER/KIDNEY EXAM: Yes no CVA tenderness Back/Pelvis: COMMON NORMALS: no CVA tenderness Extremity: COMMON NORMALS: normal to inspection Neuro: COMMON NORMALS: patient oriented x3 SENSORIUM/ORIENTATION: Yes alert GAIT: Yes Normal gait present Skin: NARRATIVE SKIN EXAM: Patient appears pallor. GENERAL SKIN EXAM: dry skin Course Vital Signs: Vital signs: Vital Signs Temperature 98.6 F 10/24/22 09:38 Pulse Rate 78 10/24/22 12:00 Respiratory Rate 16 10/24/22 12:00 Blood Pressure 176/64 10/24/22 12:00 Pulse Oximetry 97 10/24/22 12:00 Oxygen Delivery Me thod Nasal Cannula 10/24/22 12:00 Oxygen Flow Rate 2 10/24/22 09:41 MDM - Nausea/Vomiting/Diarrhea Medical Decision Making Patient is an 82-year-old female who comes to the ED with nausea. Patient has a history of hypertension, hypothyroidism, CHF, CKD stage III. Patient is on 2 L of oxygen via nasal cannula at home. She was recently hospitalized for pneumonia and discharged back on October 20. Since being discharged from the hospital she has been very nauseous and has decreased appetite. She is not eating or drinking much over the past several days due to the increased nausea. Patient denies any worsening cough or shortness of breath. She denies any episodes of emesis, chest pain or fevers. Denies abdominal pain as well. She has no bladder or bowel complaints. Patient endorses some fatigue and feeling restless. Vitals are stable patient is on 2 L of oxygen via nasal cannula which is her baseline. Patient appears pallor but rest of exam is benign. Hemoglobin 9.8 white blood cell count 11.1 and sodium level is 115. Glucose 113. Given her severe hyponatremia I discussed case with Dr. Arrington. He will be taking over patient case and having her admitted to the hospital for hyponatremia. Lab Data I reviewed the patient's lab results. 10/24/22 10:10 10/24/22 10:10 Radiology Impressions Chest X-Ray 10/24/22 09:23 IMPRESSION: Stable right lung consolidation. Laboratory Results WBC 11.1 10^3/uL (4.0-10.0) H 10/24/22 10:10 RBC 3.04 10^6/uL (4.1-5.3) L 10/24/22 10:10 Hgb 9.8 g/dL (11.5-15.3) L 10/24/22 10:10 Hct 29.6 % (37.0-47.0) L 10/24/22 10:10 MCV 97.4 fl (81-99) 10/24/22 10:10 MCH 32.2 pg (28.0-34.0) 10/24/22 10:10 MCHC 33.1 g/dL (30.0-36.0) 10/24/22 10:10 RDW 13.5 % (12.1-15.1) 10/24/22 10:10 Plt Count 417 10^3/cmm (130-400) H 10/24/22 10:10 MPV 10.7 fL (7.4-10.4) H 10/24/22 10:10 Neut % (Auto) 81.8 % 10/24/22 10:10 Lymph % (Auto) 6.1 % 10/24/22 10:10 Maries % (Auto) 10.4 % 10/24/22 10:10 Eos % (Auto) 0.9 % 10/24/22 10:10 Baso % (Auto) 0.4 % 10/24/22 10:10 Neut # (Auto) 9.07 10^3/uL (1.8-7.7) H 10/24/22 10:10 Lymph # (Auto) 0.7 10^3/uL (0.8-4.8) L 10/24/22 10:10 Maries # (Auto) 1.2 10^3/uL (0.2-0.9) H 10/24/22 10:10 Eos # (Auto) 0.1 10^3/uL (0.0-0.8) 10/24/22 10:10 Baso # (Auto) 0.0 10^3/uL (0.0-0.1) 10/24/22 10:10 Nucleated RBC % (auto) 0 % 10/24/22 10:10 Nucleated RBCs # 0.0 /100WBC 10/24/22 10:10 Sodium 115 mmol/L (136-145) L* 10/24/22 10:10 Potassium 3.8 mmol/L (3.5-5.1) 10/24/22 10:10 Chloride 78 mmol/L (98-107) L 10/24/22 10:10 Carbon Dioxide 26 mmol/L (22-29) 10/24/22 10:10 Anion Gap 14.8 (5-19) 10/24/22 10:10 BUN 12 mg/dL (8-23) 10/24/22 10:10 Creatinine 0.9 mg/dL (0.5-0.9) 10/24/22 10:10 GFR Calculation Not Reportable 10/24/22 10:10 Glucose 113 mg/dL (65-115) 10/24/22 10:10 Calculated Osmolality 241 mOsm/kg (285-295) L 10/24/22 10:10 Calcium 8.9 mg/dL (8.5-10.5) 10/24/22 10:10 Total Bilirubin 0.6 mg/dL (0.15-1.2) 10/24/22 10:10 AST 20 U/L (0-32) 10/24/22 10:10 ALT 9 U/L (0-33) 10/24/22 10:10 Alkaline Phosphatase 75 U/L (35-105) 10/24/22 10:10 Troponin T Baseline 68 ng/L (0-10) H 10/24/22 10:10 Troponin T 120 Minute 59.78 ng/L (0-10) H 10/24/22 11:55 Delta Troponin T -8.22 ABS# (0-10) L 10/24/22 11:55 NT-Pro-B Natriuret Pep 75048 pg/mL (0-450) H 10/24/22 10:10 Total Protein 6.8 g/dL (6.6-8.7) 10/24/22 10:10 Albumin 3.1 g/dL (3.5-5.2) L 10/24/22 10:10 Globulin 3.7 g/dL (1.3-4.6) 10/24/22 10:10 Lipase 42 U/L (13-60) 10/24/22 10:10 Urine Color Yellow (Yellow) 10/24/22 10:44 Urine Appearance Clear (CLEAR) 10/24/22 10:44 Urine pH 6 (5-7) 10/24/22 10:44 Ur Specific [place] 1.005 (1.005-1.030) 10/24/22 10:44 Urine Protein Neg (Negative) 10/24/22 10:44 Urine Glucose (UA) Norm (Normal) 10/24/22 10:44 Urine Ketones Negative (Negative) 10/24/22 10:44 Urine Blood Trace (Negative) H 10/24/22 10:44 Urine Nitrate Negative (Negative) 10/24/22 10:44 Urine Bilirubin Neg (Negative) 10/24/22 10:44 Urine Urobilinogen Norm mg/dL (Negative) 10/24/22 10:44 Ur Leukocyte Esterase Negative (Negative) 10/24/22 10:44 Urine RBC 0-4 /hpf (0-2) H 10/24/22 10:44 Urine WBC 0-4 /hpf (0-5) H 10/24/22 10:44 Ur Squamous Epith Cells 5-10 /hpf (0-5) H 10/24/22 10:44 Amorphous Sediment Not Reportable 10/24/22 10:44 Urine Bacteria Trace /hpf (NONE) 10/24/22 10:44 Discharge Plan Discharge Condition: Stable Prescriptions: No Action levothyroxine 88 mcg tablet 88 mcg PO DAILY Qty: 90 3RF ondansetron HCl 4 mg tablet 4 mg PO Q6H PRN (Reason: nausea and vomiting) Qty: 30 3RF torsemide 5 mg tablet 5 mg PO DAILY Qty: 90 3RF Hold Instructions: Resume on 10/27/22. valsartan 160 mg tablet See Rx Instructions .ROUTE .COMPLEX Qty: 180 3RF Dose Instruction: Take 1 tablet by mouth twice daily Rx Instructions: Take 1 tablet by mouth twice daily isosorbide mononitrate 60 mg tablet extended release 24 hr See Rx Instructions .ROUTE .COMPLEX Qty: 90 3RF Dose Instruction: Take 1 tablet by mouth once daily Rx Instructions: Take 1 tablet by mouth once daily magnesium oxide 400 mg (241.3 mg magnesium) tablet See Rx Instructions .ROUTE .COMPLEX Qty: 180 3RF Dose Instruction: Take 1 tablet by mouth twice daily Rx Instructions: Take 1 tablet by mouth twice daily hydrocodone-acetaminophen 10-325 mg tablet 1 tab PO Q4H PRN (Reason: Pain) 30 Days Qty: 180 0RF potassium chloride 20 mEq tablet extended release 20 meq PO DAILY Hold Instructions: Resume on 10/27/22. tamsulosin 0.4 mg capsule 0.4 mg PO BID felodipine 10 mg tablet extended release 24 hr 10 mg PO DAILY hydrochlorothiazide 25 mg tablet 25 mg PO DAILY Hold Instructions: Resume on 10/27/22. gabapentin 100 mg capsule 100 mg PO BID albuterol sulfate 90 mcg/actuation HFA aerosol inhaler 1 inh inhalation Q6H PRN (Reason: shortness of breath or wheezing) Qty: 8.5 0RF benzonatate 100 mg Capsule 100 mg PO TID PRN (Reason: Cough) levofloxacin 750 mg tablet 750 mg PO DAILY 7 Days Qty: 7 0RF sodium chloride 1,000 mg Tablet,Soluble 1,000 mg PO BID Qty: 14 0RF clonidine HCl 0.1 mg Tablet 0.1 mg PO BEDTIME carvedilol 3.125 mg tablet 3.125 mg PO BID Referrals: Doe Bui MD [Primary Care Provider] - Sign Out Sign Out Data: Patient Sign Out occurred on 10/24/22 at 11:25. Patient's care was discussed, and care was transferred from to Sukumar Arrington DO. Coding Level of Care Code ED Leak Gang Supervisor for Chg Fwd Documented by User: Sukumar Arrington DO 10/24/22 13:25 HPI - Nausea/Vomiting/Diarrhea General: Chief complaint: Nausea/Vomiting/Diarrhea Stated complaint: sick Time Seen by Provider: 10/24/22 09:14 PFS ED PFSH: Medical History Chronic low back pain Has had recent back surgery Coronary artery disease Dehydration History of [place] (myocardial infarction) 2018--had coronary artery stent placed Hypertension Chronic hypertension diagnosed at the age of 31. Follows up with cardiology Dr. Castellanos as well as her primary care provider. Hypoxia No pertinent past medical history Denies diabetes, asthma, seizures, DVT/PE PCP: Dr. Bui Pneumonia Vaginal prolapse 09/30/2021--grade 3-4 cystocele, grade 3 vault prolapse, grade 1 rectocele Surgical History History of back surgery March 2021--[place] [facility] [place]. History of heart artery stent 2017 after heart attack History of tubal ligation In her mid 30s---done through supra umbilical minilaparotomy incision S/P hysterectomy Vaginal hysterectomy for prolapse performed by Dr. George in 2018. Her ovaries were not removed. Family History Mother Heart disease Hypertension Colon cancer diagnosed in her late 60s Daughter Heart disease Family/Other Breast cancer maternal aunt, age at diagnosis unknown Social History Smoking and tobacco status: never smoked Substance/Drug Use: never Course Vital Signs: Vital signs: Vital Signs Temperature 98.6 F 10/24/22 09:38 Pulse Rate 78 10/24/22 12:00 Respiratory Rate 16 10/24/22 12:00 Blood Pressure 176/64 10/24/22 12:00 Pulse Oximetry 97 10/24/22 12:00 Oxygen Delivery Me thod Nasal Cannula 10/24/22 12:00 Oxygen Flow Rate 2 10/24/22 09:41 MDM - Nausea/Vomiting/Diarrhea Medical Decision Making Patient is an 82-year-old female who comes to the ED with nausea. Patient has a history of hypertension, hypothyroidism, CHF, CKD stage III. Patient is on 2 L of oxygen via nasal cannula at home. She was recently hospitalized for pneumonia and discharged back on October 20. Since being discharged from the hospital she has been very nauseous and has decreased appetite. She is not eating or drinking much over the past several days due to the increased nausea. Patient denies any worsening cough or shortness of breath. She denies any episodes of emesis, chest pain or fevers. Denies abdominal pain as well. She has no bladder or bowel complaints. Patient endorses some fatigue and feeling restless. Vitals are stable patient is on 2 L of oxygen via nasal cannula which is her baseline. Patient appears pallor but rest of exam is benign. Hemoglobin 9.8 white blood cell count 11.1 and sodium level is 115. Glucose 113. Given her severe hyponatremia I discussed case with Dr. Arrington. He will be taking over patient case and having her admitted to the hospital for hyponatremia. Care assumed from NATIVIDAD Yates. Patient is significantly hyponatremic has nausea and vomiting and weakness. Exam unchanged from what has been documented by Doe Leary. History also correlates with the patient told me. We will admit for hyponatremia discussed the hospitalist orders written. Lab Data 10/24/22 10:10 10/24/22 10:10 Radiology Impressions Chest X-Ray 10/24/22 09:23 IMPRESSION: Stable right lung consolidation. Laboratory Results WBC 11.1 10^3/uL (4.0-10.0) H 10/24/22 10:10 RBC 3.04 10^6/uL (4.1-5.3) L 10/24/22 10:10 Hgb 9.8 g/dL (11.5-15.3) L 10/24/22 10:10 Hct 29.6 % (37.0-47.0) L 10/24/22 10:10 MCV 97.4 fl (81-99) 10/24/22 10:10 MCH 32.2 pg (28.0-34.0) 10/24/22 10:10 MCHC 33.1 g/dL (30.0-36.0) 10/24/22 10:10 RDW 13.5 % (12.1-15.1) 10/24/22 10:10 Plt Count 417 10^3/cmm (130-400) H 10/24/22 10:10 MPV 10.7 fL (7.4-10.4) H 10/24/22 10:10 Neut % (Auto) 81.8 % 10/24/22 10:10 Lymph % (Auto) 6.1 % 10/24/22 10:10 Maries % (Auto) 10.4 % 10/24/22 10:10 Eos % (Auto) 0.9 % 10/24/22 10:10 Baso % (Auto) 0.4 % 10/24/22 10:10 Neut # (Auto) 9.07 10^3/uL (1.8-7.7) H 10/24/22 10:10 Lymph # (Auto) 0.7 10^3/uL (0.8-4.8) L 10/24/22 10:10 Maries # (Auto) 1.2 10^3/uL (0.2-0.9) H 10/24/22 10:10 Eos # (Auto) 0.1 10^3/uL (0.0-0.8) 10/24/22 10:10 Baso # (Auto) 0.0 10^3/uL (0.0-0.1) 10/24/22 10:10 Nucleated RBC % (auto) 0 % 10/24/22 10:10 Nucleated RBCs # 0.0 /100WBC 10/24/22 10:10 Sodium 115 mmol/L (136-145) L* 10/24/22 10:10 Potassium 3.8 mmol/L (3.5-5.1) 10/24/22 10:10 Chloride 78 mmol/L (98-107) L 10/24/22 10:10 Carbon Dioxide 26 mmol/L (22-29) 10/24/22 10:10 Anion Gap 14.8 (5-19) 10/24/22 10:10 BUN 12 mg/dL (8-23) 10/24/22 10:10 Creatinine 0.9 mg/dL (0.5-0.9) 10/24/22 10:10 GFR Calculation Not Reportable 10/24/22 10:10 Glucose 113 mg/dL (65-115) 10/24/22 10:10 Calculated Osmolality 241 mOsm/kg (285-295) L 10/24/22 10:10 Calcium 8.9 mg/dL (8.5-10.5) 10/24/22 10:10 Total Bilirubin 0.6 mg/dL (0.15-1.2) 10/24/22 10:10 AST 20 U/L (0-32) 10/24/22 10:10 ALT 9 U/L (0-33) 10/24/22 10:10 Alkaline Phosphatase 75 U/L (35-105) 10/24/22 10:10 Troponin T Baseline 68 ng/L (0-10) H 10/24/22 10:10 Troponin T 120 Minute 59.78 ng/L (0-10) H 10/24/22 11:55 Delta Troponin T -8.22 ABS# (0-10) L 10/24/22 11:55 NT-Pro-B Natriuret Pep 04614 pg/mL (0-450) H 10/24/22 10:10 Total Protein 6.8 g/dL (6.6-8.7) 10/24/22 10:10 Albumin 3.1 g/dL (3.5-5.2) L 10/24/22 10:10 Globulin 3.7 g/dL (1.3-4.6) 10/24/22 10:10 Lipase 42 U/L (13-60) 10/24/22 10:10 Urine Color Yellow (Yellow) 10/24/22 10:44 Urine Appearance Clear (CLEAR) 10/24/22 10:44 Urine pH 6 (5-7) 10/24/22 10:44 Ur Specific [place] 1.005 (1.005-1.030) 10/24/22 10:44 Urine Protein Neg (Negative) 10/24/22 10:44 Urine Glucose (UA) Norm (Normal) 10/24/22 10:44 Urine Ketones Negative (Negative) 10/24/22 10:44 Urine Blood Trace (Negative) H 10/24/22 10:44 Urine Nitrate Negative (Negative) 10/24/22 10:44 Urine Bilirubin Neg (Negative) 10/24/22 10:44 Urine Urobilinogen Norm mg/dL (Negative) 10/24/22 10:44 Ur Leukocyte Esterase Negative (Negative) 10/24/22 10:44 Urine RBC 0-4 /hpf (0-2) H 10/24/22 10:44 Urine WBC 0-4 /hpf (0-5) H 10/24/22 10:44 Ur Squamous Epith Cells 5-10 /hpf (0-5) H 10/24/22 10:44 Amorphous Sediment Not Reportable 10/24/22 10:44 Urine Bacteria Trace /hpf (NONE) 10/24/22 10:44 Discharge Plan Discharge Condition: Stable Prescriptions: No Action levothyroxine 88 mcg tablet 88 mcg PO DAILY Qty: 90 3RF ondansetron HCl 4 mg tablet 4 mg PO Q6H PRN (Reason: nausea and vomiting) Qty: 30 3RF torsemide 5 mg tablet 5 mg PO DAILY Qty: 90 3RF Hold Instructions: Resume on 10/27/22. valsartan 160 mg tablet See Rx Instructions .ROUTE .COMPLEX Qty: 180 3RF Dose Instruction: Take 1 tablet by mouth twice daily Rx Instructions: Take 1 tablet by mouth twice daily isosorbide mononitrate 60 mg tablet extended release 24 hr See Rx Instructions .ROUTE .COMPLEX Qty: 90 3RF Dose Instruction: Take 1 tablet by mouth once daily Rx Instructions: Take 1 tablet by mouth once daily magnesium oxide 400 mg (241.3 mg magnesium) tablet See Rx Instructions .ROUTE .COMPLEX Qty: 180 3RF Dose Instruction: Take 1 tablet by mouth twice daily Rx Instructions: Take 1 tablet by mouth twice daily hydrocodone-acetaminophen 10-325 mg tablet 1 tab PO Q4H PRN (Reason: Pain) 30 Days Qty: 180 0RF potassium chloride 20 mEq tablet extended release 20 meq PO DAILY Hold Instructions: Resume on 10/27/22. tamsulosin 0.4 mg capsule 0.4 mg PO BID felodipine 10 mg tablet extended release 24 hr 10 mg PO DAILY hydrochlorothiazide 25 mg tablet 25 mg PO DAILY Hold Instructions: Resume on 10/27/22. gabapentin 100 mg capsule 100 mg PO BID albuterol sulfate 90 mcg/actuation HFA aerosol inhaler 1 inh inhalation Q6H PRN (Reason: shortness of breath or wheezing) Qty: 8.5 0RF benzonatate 100 mg Capsule 100 mg PO TID PRN (Reason: Cough) levofloxacin 750 mg tablet 750 mg PO DAILY 7 Days Qty: 7 0RF sodium chloride 1,000 mg Tablet,Soluble 1,000 mg PO BID Qty: 14 0RF clonidine HCl 0.1 mg Tablet 0.1 mg PO BEDTIME carvedilol 3.125 mg tablet 3.125 mg PO BID Referrals: Doe Bui MD [Primary Care Provider] - Sign Out Sign Out Data: Patient Sign Out occurred on 10/24/22 at 11:25. Patient's care was discussed, and care was transferred from to Sukumar Arrington DO. Coding Level of Care Code ED Leak Gang Supervisor for Lawrence Begum
[2022-10-24] MEDS: ipratropium-albuterol 3 mL Neb INHALATION (09:42)
[2022-10-24] MEDS: sodium chloride 0.9% 500 ML IV (10:19)
[2022-10-24] MEDS: metoclopramide 5 mg/mL SDV 2 mL 10 MG IVP (10:19)
[2022-10-24 10:32] LABS: Basophils % 0.4 %; Eosinophils # 0.1 10^3/uL (0.0-0.8); Eosinophils % 0.9 %; Hematocrit 29.6 % (37.0-47.0); Hemoglobin 9.8 g/dL (11.5-15.3); Lymphocytes # 0.7 10^3/uL (0.8-4.8); Lymphocytes % 6.1 %; Mean Corpuscular HGB Conc 33.1 g/dL (30.0-36.0); Mean Corpuscular Hemoglobin 32.2 pg (28.0-34.0); Mean Corpuscular Volume 97.4 fl (81-99); Mean Platelet Volume 10.7 fL (7.4-10.4); Monocytes # 1.2 10^3/uL (0.2-0.9); Monocytes % 10.4 %; Neutrophils # 9.07 10^3/uL (1.8-7.7); Neutrophils % 81.8 %; Nucleated Red Blood Cells % 0 %; Platelet Count 417 10^3/cmm (130-400); Red Blood Count 3.04 10^6/uL (4.1-5.3); Red Cell Distribution Width 13.5 % (12.1-15.1); White Blood Count 11.1 10^3/uL (4.0-10.0)
[2022-10-24 10:57] LABS: Alanine Aminotransferase 9 U/L (0-33); Albumin Level 3.1 g/dL (3.5-5.2); Alkaline Phosphatase 75 U/L (35-105); Anion Gap 14.8 (5-19); Aspartate Amino Transferase 20 U/L (0-32); Blood Urea Nitrogen 12 mg/dL (8-23); Calcium 8.9 mg/dL (8.5-10.5); Carbon Dioxide 26 mmol/L (22-29); Chloride 78 mmol/L (98-107); Globulin 3.7 g/dL (1.3-4.6); Glucose 113 mg/dL (65-115); Lipase 42 U/L (13-60); Osmolality Calculated 241 mOsm/kg (285-295); Potassium 3.8 mmol/L (3.5-5.1); Total Bilirubin 0.6 mg/dL (0.15-1.2); Total Protein 6.8 g/dL (6.6-8.7)
[2022-10-24 10:59] LABS: Add Urine Culture? No; Add Urine Microscopic? YES; Bacteria Urine TRACE /hpf; Bilirubin Urine Neg (Negative); Blood Urine Trace (Negative); Glucose Urine UA Norm (Normal); Ketones Urine Negative (Negative); Leukocyte Esterase Urine Negative (Negative); Nitrate Urine Negative (Negative); Protein Urine Neg (Negative); RBC Urine 0-4 /hpf (0-2); Specific Gravity, Urine 1.005 (1.005-1.030); Urine Appearance Clear (CLEAR); Urine Color Yellow (Yellow); Urobilinogen Urine Norm (Negative); WBC Urine 0-4 /hpf (0-5); pH Urine 6 (5-7)
[2022-10-24 11:02] LABS: Sodium 115 mmol/L (136-145)
--- NOTE | 2022-10-24 11:20 | ECG_ITS ---
[facility] Test Date: 2022-10-24 Pat Name: Kati Chris Department: Room: Gender: Female Emergency Manager: : 1940 Requested By: Doe Leary Order Number: [id number] Betty MD: Brian Ocasio M.D. Measurements Intervals [place] Rate: 78 P: 54 LA: 157 QRS: -66 QRSD: 169 T: 73 QT: 444 QTc: 507 Interpretive Statements SINUS RHYTHM WITH SINUS ARRHYTHMIA LEFT AXIS DEVIATION [QRS AXIS < -30] LEFT BUNDLE BRANCH BLOCK [120+ ms QRS DURATION, 80+ ms Q/S IN V1/V2, 85+ ms R IN I/aVL/V5/V6] Compared to ECG 10/07/2022 23:19:17 No significant changes Electronically Signed On 10-24-2022 22:30:25 CDT by Brian Ocasio M.D. [id number]
--- NOTE | 2022-10-24 11:49 | PC.PHAR ---
pt states she takes 0.1mg at bedtime every night- prescribed as 0.1mg q12h PRN blood pressure. medication is on pt allergy list but she assures she does take it.
[2022-10-24 11:59] LABS: Troponin(5th) Baseline 68 ng/L (0-10)
[2022-10-24 12:04] LABS: NT Pro B Type Natriuretic Pept 11464 pg/mL (0-450)
[2022-10-24] MEDS: sodium chloride 0.9% 1,000 ML 100 ML IV (12:10)
[2022-10-24] MEDS: HYDROcodone-acetaminophen 5-325 mg Tablet 1 TAB PO ×2 (12:14→14:04)
--- NOTE | 2022-10-24 12:17 | PM.HP ---
Providers/Chief Complaint Primary Care Provider: Doe Bui MD Chief Complaint: sick History of Present Illness Kati Chris is a 82 year old female who was recently discharged from the hospital after management of pneumonia she is still getting levofloxacin. She has chronic hyponatremia, hydrochlorothiazide was put on hold however patient has started using it because of lower extremity swelling. Patient has returned to the hospital because of inability to eat because of extensive GI symptoms of nausea she has not vomited or experienced any diarrhea. She has not noticed any fever. Lives with her at home. During last visit she qualified for 3 L of oxygen. She has not noticed any recurrent falls, confusion, stroke related symptoms. In the ER he has been given bolus of fluids sodium 115, she was awake and alert and pleasant during my evaluation No active tremors or confusion Review of Systems ENMT: Denies: throat pain Card: Denies: chest pain Resp: Reports: dyspnea GI: Reports: nausea : Denies: dribbling Musc: Denies: neck pain Skin/Breast: Denies: rash Neuro: Denies: headache(s) Psych: Reports: depression Medications/Allergies Home Medications Medication Instructions Recorded Confirmed Last Taken Type torsemide 5 mg tablet 5 mg PO DAILY #90 tabs 07/02/22 10/24/22 10/23/22 Rx valsartan 160 mg tablet See Rx Instructions .Route 08/04/22 10/24/22 10/23/22 Rx .COMPLEX #180 tabs levothyroxine 88 mcg tablet 88 mcg PO DAILY #90 tabs 09/02/22 10/24/22 10/23/22 Rx isosorbide mononitrate 60 mg See Rx Instructions .Route 09/20/22 10/24/22 10/23/22 Rx tablet,extended release 24 hr .COMPLEX #90 tabs magnesium oxide 400 mg (241.3 mg See Rx Instructions .Route 09/20/22 10/24/22 10/23/22 Rx magnesium) tablet .COMPLEX #180 tabs hydrocodone 10 mg-acetaminophen 1 tab PO Q4H PRN Pain 30 days #180 09/27/22 10/24/22 Unknown Rx 325 mg tablet tabs felodipine 10 mg tablet,extended 10 mg PO DAILY 10/08/22 10/24/22 10/23/22 History release 24 hr gabapentin 100 mg capsule 100 mg PO BID 04/10/24/22 10/23/22 History hydrochlorothiazide 25 mg tablet 25 mg PO DAILY 10/08/22 10/24/22 10/23/22 History potassium chloride 20 mEq 20 meq PO DAILY 10/08/22 10/24/22 10/23/22 History tablet,extended release tamsulosin 0.4 mg capsule 0.4 mg PO BID 10/08/22 10/24/22 10/23/22 History albuterol sulfate 90 mcg/actuation 1 inh inhalation Q6H PRN shortness 10/10/22 10/24/22 Unknown Rx aerosol inhaler of breath or wheezing #8.5 grams ondansetron HCl 4 mg tablet 4 mg PO Q6H PRN nausea and 10/14/22 10/24/22 Unknown Rx vomiting #30 tabs benzonatate 100 mg capsule 100 mg PO TID PRN Cough 10/16/22 10/24/22 Unknown History levofloxacin 750 mg tablet 750 mg PO DAILY 7 days #7 tabs 10/20/22 10/24/22 10/23/22 Rx sodium chloride 1,000 mg soluble 1,000 mg PO BID #14 tabs 10/20/22 10/24/22 10/23/22 Rx tablet carvedilol 3.125 mg tablet 3.125 mg PO BID 10/24/22 10/24/22 10/23/22 History clonidine HCl 0.1 mg tablet 0.1 mg PO BEDTIME 10/24/22 10/24/22 10/23/22 History Allergies Allergy/AdvReac Type Severity Reaction Status Date / Time prazosin Allergy Severe ALGY-Difficulty Verified 10/08/22 08:18 Breathing hydralazine Allergy Unknown Verified 10/08/22 08:18 PFSH Acute PFSH: Medical History Chronic low back pain Has had recent back surgery Coronary artery disease Dehydration History of [place] (myocardial infarction) 2017--had coronary artery stent placed Hypertension Chronic hypertension diagnosed at the age of 31. Follows up with cardiology Dr. Castellanos as well as her primary care provider. Hypoxia No pertinent past medical history Denies diabetes, asthma, seizures, DVT/PE PCP: Dr. Bui Pneumonia Vaginal prolapse 09/30/2021--grade 3-4 cystocele, grade 3 vault prolapse, grade 1 rectocele Surgical History History of [place] surgery March [place] [facility] [place] [facility] [place]. History of heart artery stent 2017 after heart attack History of tubal ligation In her mid 30s---done through supra umbilical minilaparotomy incision S/P hysterectomy Vaginal hysterectomy for prolapse performed by Dr. George in 2018. Her ovaries were not removed. Family History Mother Heart disease Hypertension Colon cancer diagnosed in her late 60s Daughter Heart disease Family/Other Breast cancer maternal aunt, age at diagnosis unknown Social History Smoking and tobacco status: never smoked Substance/Drug Use: never Vitals/I&O/Wt Last Vital Signs Temp 98.6 F 10/24/22 09:38 Pulse 78 10/24/22 12:00 Resp 16 10/24/22 12:00 BP 176/64 10/24/22 12:00 Pulse Ox 97 10/24/22 12:00 O2 Del Method Nasal Cannula 10/24/22 12:00 O2 Flow Rate 2 10/24/22 09:41 10/23/22 10/24/22 10/24/22 22:59 06:59 14:59 Intake Total 500 / 500 Balance 500 / 500 Weight last 48 hrs Weight 58.967 kg Physical Exam Narrative: Frail elderly female Lower extremity swelling present Abdomen soft No active emesis Awake and alert Proper mood and affect She is alert and oriented x3 GCS 15 Nonfocal neuro exam Answer my question appropriate History provided by the patient No active emesis Currently on 3 L Data 10/24/22 10:10 10/24/22 10:10 A&P Assessment and plan (1) Aortic stenosis: (2) Chronic hyponatremia: (3) Right lower lobe pneumonia: (4) Nausea: (5) Chronic respiratory failure with hypoxia: (6) DNR (do not resuscitate): Plan Acute on chronic hyponatremia Check osmolarity Stop hydrochlorothiazide Lower extremity swelling noted Currently I will keep patient on normal saline and salt tablets Monitor for any change of neurological status Chronic hypoxia without aggravation Continue 3 L of oxygen Hold levofloxacin that can contribute to her nausea Nausea without vomiting or diarrhea Antiemetics for now Will request KUB DNR/DNI We will keep patient on regular diet is at the bedside Monitor sodium every 4 hours Target sodium replenishment 6 mEq in 24 hours Interpretation of chest x-ray showing right lobe pneumonia very close to diaphragm which can cause nausea Attestations Medical Necessity Statement*: More than 2 midnights anticipated for constant monitoring of sodium Diagnoses Aortic stenosis I35.0 Chronic hyponatremia E87.1 Right lower lobe pneumonia J18.9 Nausea R11.0 Chronic respiratory failure with hypoxia J96.11 DNR (do not resuscitate) Z66
[2022-10-24 12:26] LABS: Troponin 5 2HR 59.78 ng/L (0-10); Troponin 5 2HR Delta -8.22 ABS# (0-10)
--- NOTE | 2022-10-24 13:28 | ECG_ITS ---
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 Measurements Intervals [place] Rate: 70 P: 43 [place]: 174 QRS: -53 QRSD: 169 T: 56 QT: 479 QTc: 518 Interpretive Statements SINUS RHYTHM WITH OCCASIONAL SUPRAVENTRICULAR PREMATURE COMPLEXES LEFT AXIS DEVIATION [QRS AXIS < -30] LEFT BUNDLE BRANCH BLOCK [120+ ms QRS DURATION, 80+ ms Q/S IN V1/V2, 85+ ms R IN I/aVL/V5/V6] Compared to ECG 10/24/2022 11:20:08 Sinus arrhythmia no longer present Electronically Signed On 10-24-2022 22:37:30 CDT by Brian Ocasio M.D. [email or web address] Enterpriseshen[facility].Anteryon/store/OM/[id number]/ecg/[id number]
[2022-10-24 13:45] LABS: Sodium 114 mmol/L (136-145)
--- NOTE | 2022-10-24 14:35 | PC.NURSE ---
Pt c/o back and body hurting in our stretcher. Pt given pain medication as well as this nurse getting a hospital bed from med-surg (where pt will be admitted to) so that pt can be more comfortable. Pt states she likes this bed a lot better - coffee offered to spouse. No other needs or questions at this time. They stated understanding that we are waiting on a bed on Med-surg for admission.
[2022-10-24] MEDS: sodium chloride 0.9% 1,000 ML 30 ML IV (16:28)
[2022-10-24 16:40] LABS: Sodium 119 mmol/L (136-145)
--- NOTE | 2022-10-24 17:13 | ECG_ITS ---
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 Measurements Intervals [place] Rate: 75 P: 28 [place]: 164 QRS: -61 QRSD: 169 T: 67 QT: 474 QTc: 530 Interpretive Statements SINUS RHYTHM WITH FREQUENT SUPRAVENTRICULAR PREMATURE COMPLEXES LEFT AXIS DEVIATION [QRS AXIS < -30] LEFT BUNDLE BRANCH BLOCK [120+ ms QRS DURATION, 80+ ms Q/S IN V1/V2, 85+ ms R IN I/aVL/V5/V6] Compared to ECG 10/24/2022 13:28:06 No significant changes Electronically Signed On 10-24-2022 22:38:38 CDT by Brian Ocasio M.D. [email or web address] !Badger Mapsprem[facility].[employer]/store/OM/[id number]
[2022-10-24] MEDS: carvedilol 3.125 mg Tablet PO (18:06)
[2022-10-24] MEDS: magnesium oxide 400 mg tablet PO (18:06)
[2022-10-24] MEDS: losartan 50 mg Tablet PO (18:06)
[2022-10-24] MEDS: tamsulosin 0.4 mg Capsule PO (18:06)
[2022-10-24 18:28] LABS: Uric Acid 3.9 mg/dL (2.4-5.7)
[2022-10-24] MEDS: cloNIDine 0.1 mg Tablet PO (21:02)
[2022-10-24] MEDS: trazodone 50 mg Tablet PO (21:12)
[2022-10-24 21:27] LABS: Sodium 115 mmol/L (136-145)
[2022-10-25] VITALS (11 sets, daily range): BP systolic 149–196; BP diastolic 56–80; PULSE 53–77; RESP 16–19; TEMP 36.3–36.8; O2SAT 98–100
[2022-10-25] MEDS: HYDROcodone-acetaminophen 10-325 mg Tablet 1 TAB PO ×4 (03:21→21:23)
--- NOTE | 2022-10-25 03:39 | ECG_ITS ---
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 Measurements Intervals [place] Rate: 70 P: 52 [place]: 164 QRS: -68 QRSD: 173 T: 76 QT: 462 QTc: 499 Interpretive Statements SINUS RHYTHM WITH OCCASIONAL SUPRAVENTRICULAR PREMATURE COMPLEXES LEFT AXIS DEVIATION [QRS AXIS < -30] LEFT BUNDLE BRANCH BLOCK [120+ ms QRS DURATION, 80+ ms Q/S IN V1/V2, 85+ ms R IN I/aVL/V5/V6] INTERPRETATION BASED ON A DEFAULT AGE OF 40 YEARS Compared to ECG 10/24/2022 17:39:03 No significant changes Electronically Signed On 10-26-2022 7:02:47 CDT by Brian Ocasio M.D. [email or web address].Beers EnterprisesOzsalecleveland clinic [facility].[employer]/store/Ov/[id number]/[id number]
[2022-10-25 04:56] LABS: Basophils # 0.1 10^3/uL (0.0-0.1); Basophils % 0.8 %; Eosinophils # 0.3 10^3/uL (0.0-0.8); Eosinophils % 3.2 %; Hematocrit 30.9 % (37.0-47.0); Hemoglobin 10.1 g/dL (11.5-15.3); Lymphocytes % 11.6 %; Mean Corpuscular HGB Conc 32.7 g/dL (30.0-36.0); Mean Corpuscular Hemoglobin 31.7 pg (28.0-34.0); Mean Corpuscular Volume 96.9 fl (81-99); Mean Platelet Volume 10.5 fL (7.4-10.4); Monocytes # 1.1 10^3/uL (0.2-0.9); Monocytes % 12.6 %; Neutrophils # 6.04 10^3/uL (1.8-7.7); Neutrophils % 71.3 %; Nucleated Red Blood Cells % 0 %; Platelet Count 367 10^3/cmm (130-400); Red Blood Count 3.19 10^6/uL (4.1-5.3); Red Cell Distribution Width 13.3 % (12.1-15.1); White Blood Count 8.5 10^3/uL (4.0-10.0)
[2022-10-25 05:18] LABS: Anion Gap 15.6 (5-19); Blood Urea Nitrogen 9 mg/dL (8-23); Calcium 8.7 mg/dL (8.5-10.5); Carbon Dioxide 25 mmol/L (22-29); Chloride 81 mmol/L (98-107); Glucose 101 mg/dL (65-115); Magnesium 1.5 mg/dL (1.7-2.3); Osmolality Calculated 245 mOsm/kg (285-295); Potassium 3.6 mmol/L (3.5-5.1)
[2022-10-25 05:26] LABS: Sodium 118 mmol/L (136-145)
[2022-10-25] MEDS: sodium chloride 0.9% 1,000 ML 30 ML IV (05:28)
--- NOTE | 2022-10-25 05:31 | ECG_ITS ---
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 Measurements Intervals [place] Rate: 63 P: 209 [place]: 167 QRS: 215 QRSD: 168 T: 210 QT: 479 QTc: 494 Interpretive Statements ECTOPIC ATRIAL RHYTHM WITH FREQUENT SUPRAVENTRICULAR PREMATURE COMPLEXES LEFT BUNDLE BRANCH BLOCK [120+ ms QRS DURATION, 80+ ms Q/S IN V1/V2, 85+ ms R IN I/aVL/V5/V6] LATERAL MYOCARDIAL INFARCTION , OF INDETERMINATE AGE [40+ ms Q WAVE AND/OR ST/T ABNORMALITY IN I/aVL/V5/V6] Compared to ECG 10/25/2022 03:39:45 Ectopic atrial rhythm now present Myocardial infarct finding now present Sinus rhythm no longer present Left-axis deviation no longer present Electronically Signed On 10-27-2022 0:25:37 CDT by Brian Ocasio M.D. [email or web address].[facility].[employer]/store/[id number]
[2022-10-25] MEDS: LORazepam 0.5 mg Tablet PO ×2 (05:52→18:53)
[2022-10-25 06:02] LABS: Troponin(5th) Baseline 68 ng/L (0-10)
[2022-10-25 06:44] LABS: Troponin 5 2HR 72.81 ng/L (0-10)
[2022-10-25 06:51] LABS: Troponin 5 2HR Delta 4.81 ABS# (0-10)
[2022-10-25] MEDS: carvedilol 3.125 mg Tablet PO (08:50)
[2022-10-25] MEDS: losartan 50 mg Tablet PO ×2 (08:50→18:03)
[2022-10-25] MEDS: levothyroxine 88 mcg Tablet PO (08:50)
[2022-10-25] MEDS: sodium chloride 1 gm Tablet PO ×2 (08:51→18:03)
[2022-10-25] MEDS: tamsulosin 0.4 mg Capsule PO ×2 (08:51→18:03)
[2022-10-25] MEDS: potassium chloride ER 20 mEq Tablet PO (08:51)
[2022-10-25] MEDS: magnesium oxide 400 mg tablet PO ×2 (08:51→18:03)
--- NOTE | 2022-10-25 09:31 | ECG_ITS ---
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 Measurements Intervals [place] Rate: 73 P: 39 [place]: 162 QRS: -58 QRSD: 170 T: 64 QT: 449 QTc: 496 Interpretive Statements SINUS RHYTHM WITH FREQUENT SUPRAVENTRICULAR PREMATURE COMPLEXES LEFT AXIS DEVIATION [QRS AXIS < -30] LEFT BUNDLE BRANCH BLOCK [120+ ms QRS DURATION, 80+ ms Q/S IN V1/V2, 85+ ms R IN I/aVL/V5/V6] Compared to ECG 10/25/2022 06:25:39 Left-axis deviation now present Ectopic atrial rhythm no longer present Myocardial infarct finding no longer present Electronically Signed On 10-27-2022 0:25:54 CDT by Brian Ocasio M.D. [email or web address].Clarus SystemsNakaya Microdevicesmymichigan medical center [facility].[employer]/store/NU/[id number] f
--- NOTE | 2022-10-25 12:07 | PM.PN ---
Subjective Subjective: This morning patient is feeling slightly better however still fatigued and lethargic Sodium 118 Normal saline running at 30 cc/h which I will discontinue around noon Did not endorse more complaints Vitals/I&O/Wt Last Vital Signs Temp 97.7 F 10/25/22 04:00 Pulse 66 10/25/22 07:39 Resp 16 10/25/22 07:39 BP 167/75 10/25/22 07:39 Pulse Ox 98 10/25/22 07:39 O2 Del Method Nasal Cannula 10/25/22 08:00 O2 Flow Rate 2 10/25/22 08:00 10/24/22 10/25/22 10/25/22 22:59 06:59 14:59 Intake Total 1390 / 1890 Balance 1390 / 1890 Weight last 48 hrs Weight 58.967 kg Physical Exam Narrative: Fatigued and lethargic Nonfocal neuro exam Blood pressure stable Currently on 2 L of oxygen Afebrile Nonfocal neuro exam abdomen soft GCS 15 Pleasant and cooperative Data 10/25/22 04:29 10/25/22 04:29 A&P Assessment and plan (1) DNR (do not resuscitate): (2) Chronic respiratory failure with hypoxia: (3) Nausea: (4) Chronic hyponatremia: (5) Cervical radiculopathy: (6) Peripheral neuropathy: (7) Malaise and fatigue: (8) Uncontrolled hypertension: (9) Aortic stenosis: Plan Acute on chronic hyponatremia Discontinue normal saline We will continue salt tablets Encourage patient to increase her p.o. intake continue regular diet Gradual improvement of sodium is desired 6 mL in 24 hours. Sodium improvement at target Right lower lobe pneumonia diagnosed on previous admission X-ray showing improvement Currently on 2 L of nasal cannula Afebrile Lower extremity swelling I do believe her heart failure is currently compensated Avoid diuretics for now DNI/DNI Currently on regular diet Hypertensive urgency, watch her heart rate, she gets clonidine at night Coreg twice a day along with losartan, will add hydralazine, not a good candidate to be on any diuretics Hypokalemia: Repleted She has had multiple admissions, will request PT, will asked patient if she would be agreeable to go to SNF if needed Attestations Medical Necessity Statement*: Continue medical hospitalization for hyponatremia Diagnoses DNR (do not resuscitate) Z66 Chronic respiratory failure with hypoxia J96.11 Nausea R11.0 Chronic hyponatremia E87.1 Cervical radiculopathy M54.12 Peripheral neuropathy G62.9 Malaise and fatigue R53.81; R53.83 Uncontrolled hypertension I10 Aortic stenosis I35.0
[2022-10-25] MEDS: cloNIDine 0.1 mg Tablet PO ×2 (18:03→21:22)
[2022-10-25] MEDS: trazodone 50 mg Tablet PO (21:23)
[2022-10-26] VITALS (12 sets, daily range): BP systolic 139–183; BP diastolic 58–77; PULSE 46–78; RESP 14–18; TEMP 36.3–37.1; O2SAT 98–100
[2022-10-26 05:45] LABS: Blood Urea Nitrogen 10 mg/dL (8-23); Calcium 7.9 mg/dL (8.5-10.5); Carbon Dioxide 26 mmol/L (22-29); Chloride 83 mmol/L (98-107); Glucose 84 mg/dL (65-115); Osmolality Calculated 246 mOsm/kg (285-295)
[2022-10-26 05:51] LABS: Sodium 119 mmol/L (136-145)
[2022-10-26] MEDS: levothyroxine 88 mcg Tablet PO (08:54)
[2022-10-26] MEDS: tamsulosin 0.4 mg Capsule PO ×2 (08:54→17:51)
[2022-10-26] MEDS: sodium chloride 1 gm Tablet PO ×2 (08:54→17:51)
[2022-10-26] MEDS: potassium chloride ER 20 mEq Tablet PO (08:54)
[2022-10-26] MEDS: cloNIDine 0.1 mg Tablet PO ×2 (08:54→20:23)
[2022-10-26] MEDS: losartan 50 mg Tablet PO ×2 (08:55→17:51)
[2022-10-26] MEDS: magnesium oxide 400 mg tablet PO ×2 (08:55→17:51)
[2022-10-26] MEDS: sodium chloride 0.9% 1,000 ML 75 ML IV (08:57)
--- NOTE | 2022-10-26 11:52 | PM.PN ---
Subjective Subjective: Patient is stating that she is feeling short of breath however she looks very comfortable on 2 L nasal cannula I turned off her fluids Give her Lasix this morning I counseled the patient that I will give her Lasix to get rid of extra fluid, no need of fluids for now Encouraged to eat is at the bedside I encourage patient to work with physical therapy as well Patient endorsed some tingling around her lips Vitals/I&O/Wt Last Vital Signs Temp 98.8 F 10/26/22 11:30 Pulse 61 10/26/22 11:30 Resp 17 10/26/22 11:30 BP 173/70 10/26/22 11:30 Pulse Ox 100 10/26/22 11:30 O2 Del Method Nasal Cannula 10/26/22 07:33 O2 Flow Rate 2 10/26/22 07:33 10/25/22 10/26/22 10/26/22 22:59 06:59 14:59 Intake Total 171.25 / 171.25 Balance 171.25 / 171.25 Physical Exam Narrative: Patient sitting in a chair Currently on 2 L 1+ edema of legs Mild crackles right lung base Very comfortable no conversational dyspnea No active wheezing on lung auscultation at the bedside Nonfocal neuro exam Fatigued and lethargic Data 10/25/22 04:29 10/26/22 05:05 A&P Assessment and plan (1) Community acquired pneumonia: (2) DNR (do not resuscitate): (3) Chronic respiratory failure with hypoxia: (4) Nausea: (5) Aortic stenosis: Plan Chronic hyponatremia: Sodium 119 Looks slightly more fluid overloaded today We will give her Lasix No need of fluids Lower extremity edema noted Hypervolemic hyponatremia Chronic hypoxia patient uses 3 L at baseline currently on 2 L No conversational dyspnea I will obtain x-ray for evaluation For generalized fatigue related to hyponatremia Continue PT Anxiety: Patient response to Ativan Tingling around her lips, feeling anxious and short of breath without any evidence on clinical exam Anorexia: I would avoid mirtazapine I can try a dose of Ritalin to see if that would improve her mood and appetite Patient does not want to go to SNF Attestations Medical Necessity Statement*: Anticipating discharge in next 48 hours Diagnoses Community acquired pneumonia J18.9 DNR (do not resuscitate) Z66 Chronic respiratory failure with hypoxia J96.11 Nausea R11.0 Aortic stenosis I35.0
--- NOTE | 2022-10-26 11:53 | XRR_ITS ---
PROCEDURE INFORMATION: Exam: XR Chest Exam date and time: 10/26/2022 11:04 AM Age: 82 years old Clinical indication: Shortness of breath TECHNIQUE: Imaging protocol: Radiologic exam of the chest. Views: 1 view. COMPARISON: CR (CHEST, ) 10/24/2022 8:48 AM FINDINGS: Lungs: Areas of opacity within the mid and lower right lung noted with significant chronic component with prior exam though with increased opacity right lung base with today's exam. A component of right basilar effusion is suspected. Left lung is clear. No pneumothorax. Pleural spaces: See Lungs finding. Heart/Mediastinum: Cardiac silhouette is mildly prominent. Vasculature: Arteriosclerosis of the thoracic aorta. Bones/joints: Mild thoracic scoliosis. Spondylotic change thoracic spine. XR/XR chest 1V portable [id number] IMPRESSION: Opacity is seen involving mid and lower right lung with significant chronic component with prior exam though with increased opacity right lung base with today's exam suggesting increased right basilar infiltrate and effusion. Findings suggest superimposed acute upon chronic changes with prior exam.
[2022-10-26] MEDS: methylphenidate 10 mg Tablet 5 MG PO (12:31)
[2022-10-26] MEDS: FUROsemide 10 mg/mL SDV 4mL 40 MG IVP (12:32)
[2022-10-26 16:13] LABS: Osmolality Urine 288 mOsm/kg (50-1200)
[2022-10-26 16:24] LABS: Osmolality Serum 251 mOsm/kg (278-305)
[2022-10-26] MEDS: isosorbide mononitrate ER 30 mg Tablet PO (17:51)
[2022-10-26] MEDS: HYDROcodone-acetaminophen 10-325 mg Tablet 1 TAB PO ×2 (17:53→21:50)
--- NOTE | 2022-10-26 18:39 | CTR_ITS ---
PROCEDURE INFORMATION: Exam: CT Chest Without Contrast; Diagnostic Exam date and time: 10/26/2022 7:51 PM Age: 82 years old Clinical indication: Shortness of breath; Patient HX: Worsening SOB. TECHNIQUE: Imaging protocol: Diagnostic computed tomography of the chest without contrast. Radiation optimization: All CT scans at this facility use at least one of these dose optimization techniques: automated exposure control; mA and/or kV adjustment per patient size (includes targeted exams where dose is matched to clinical indication); or iterative reconstruction. REPORTING DATA: Count of CT and Cardiac NM exams in prior 12 months: This patient has received 2 known CTs and 0 known cardiac nuclear medicine studies in the 12 months prior to the current study. COMPARISON: CT chest wo con [id number] 10/10/2022 7:35 AM RADIATION DOSE METRICS: Total DLP (mGy-cm): 316.43 FINDINGS: Lungs: Lung windows demonstrate emphysematous change. A component of reticulonodular infiltrate along with alveolar infiltrate with areas of consolidation is seen within the right lung in relation to the left. Compared with prior exam slightly more mild nodular appearance is seen in the upper right lung. Mild increased alveolar consolidation within the right lung base posteriorly also suggested. Mild nodular type opacity versus pleural thickening in the right lung apex, with similar appearance. Small subpleural nodular focus in the left lung apex with today's exam. Minimal air bronchograms within the lower right lung, without more extensive air bronchograms as would be expected for pneumonia. Opacity extends from the inferior right hilum within the lower right lung. Pleural spaces: Small posterior pleural effusions which appears overall less prominent than previous exam. No pneumothorax is seen. Heart: See Coronary arteries finding. Coronary arteries: Coronary artery calcifications. No significant pericardial effusion. Lymph nodes: Evidence for benign healed granulomatous disease with calcified nodes within the mediastinum and right hilar region and upper right lung. This is unchanged with prior exam. Nonspecific lymph nodes within the mediastinum, otherwise. Vasculature: Arteriosclerosis of the thoracic aorta. Gallbladder and bile ducts: Images through the upper abdomen demonstrate cholelithiasis. Bones/joints: Thoracolumbar scoliosis with spondylotic change Soft tissues: Unremarkable. CT/CT chest wo con [id number] IMPRESSION: 1. Emphysematous change. 2. A component of reticulonodular infiltrate along with alveolar infiltrate with areas of consolidation within the right lung, as noted above. Mild partial nodular appearance on the lung windows. Findings could represent pneumonia including atypical etiology given the persistence with prior exam, though underlying malignancy is not excluded as well. 3. Small posterior pleural effusions, slightly less prominent with prior exam. 4. Other nonacute findings as noted above.
[2022-10-27] VITALS (7 sets, daily range): BP systolic 164–197; BP diastolic 65–84; PULSE 63–77; RESP 12–17; TEMP 36.4–36.8; O2SAT 98–100
[2022-10-27] MEDS: HYDROcodone-acetaminophen 10-325 mg Tablet 1 TAB PO ×2 (05:41→13:11)
[2022-10-27 05:54] LABS: Blood Urea Nitrogen 13 mg/dL (8-23); Calcium 8.1 mg/dL (8.5-10.5); Carbon Dioxide 26 mmol/L (22-29); Chloride 84 mmol/L (98-107); Glucose 104 mg/dL (65-115); Osmolality Calculated 248 mOsm/kg (285-295)
[2022-10-27 06:02] LABS: Anion Gap 12.9 (5-19); Potassium 3.9 mmol/L (3.5-5.1); Sodium 119 mmol/L (136-145)
[2022-10-27] MEDS: potassium chloride ER 20 mEq Tablet PO (10:59)
[2022-10-27] MEDS: losartan 50 mg Tablet PO (10:59)
[2022-10-27] MEDS: magnesium oxide 400 mg tablet PO (10:59)
[2022-10-27] MEDS: isosorbide mononitrate ER 30 mg Tablet PO (10:59)
[2022-10-27] MEDS: tamsulosin 0.4 mg Capsule PO (10:59)
[2022-10-27] MEDS: levothyroxine 88 mcg Tablet PO (10:59)
[2022-10-27] MEDS: sodium chloride 1 gm Tablet PO (11:00)
[2022-10-27] MEDS: hyDRALAzine 25 mg Tablet PO ×2 (11:14→14:55)
--- NOTE | 2022-10-27 13:22 | P.PN_ITS ---
Subjective Subjective: This morning patient is hypertensive requiring hydralazine I have added chlorthalidone She did not develop any kind of allergic reaction to hydralazine, patient is stating that she might have developed some seizures or tremors with hydralazine which I do not think is real allergy She is very sick of staying in the hospital I requested her to stay 1 more day so we can optimize her antihypertensive regimen, sodium is sitting at 119 Vitals/I&O/Wt Last Vital Signs Temp 97.6 F 10/27/22 12:14 Pulse 70 10/27/22 12:14 Resp 16 10/27/22 12:14 BP 189/67 10/27/22 12:14 Pulse Ox 99 10/27/22 12:14 O2 Del Method Nasal Cannula 10/27/22 12:14 O2 Flow Rate 2 10/27/22 12:14 10/26/22 10/27/22 10/27/22 22:59 06:59 14:59 Intake Total 120 / 291.25 100 / 100 Output Total 100 / 100 Balance 20 / 191.25 100 / 100 Physical Exam Narrative: P.o. intake has been poor Lower extremity edema Abdomen soft Currently on room air Anxious appearing Nonfocal neuro exam is at the bedside GCS 15 Data 10/25/22 04:29 10/27/22 04:40 A&P Assessment and plan (1) Community acquired pneumonia: (2) DNR (do not resuscitate): (3) Chronic respiratory failure with hypoxia: (4) Nausea: (5) Right lower lobe pneumonia: (6) Chronic hyponatremia: (7) Peripheral neuropathy: (8) Malaise and fatigue: (9) Congestive heart failure: (10) Aortic stenosis: (11) Uncontrolled hypertension: Plan Chronic hyponatremia sodium stable at 119 Hypervolemic hyponatremia Serum osmolarity 251, urine osmolarity 288 Hypertensive urgency added chlorthalidone and hydralazine to her losartan I w ould avoid amlodipine or AV luann blocking agent because of bradycardia noted Patient to experience rebound hypertension she has been taking clonidine which have increased to twice a day regimen Chronic hypoxia, currently on room air however recently started using 3 to 4 L of oxygen Pneumonia: No significant worsening, x-ray reviewed, mild pleural effusion she was given 1 dose of Lasix yesterday I would watch her off Lasix today If her blood pressure stays stable around 140s I will let her go home tomorrow and have her follow-up outpatient PCP for her sodium3 She is DNR/DNI Attestations Medical Necessity Statement*: Discharge tomorrow Diagnoses Community acquired pneumonia J18.9 DNR (do not resuscitate) Z66 Chronic respiratory failure with hypoxia J96.11 Nausea R11.0 Right lower lobe pneumonia J18.9 Chronic hyponatremia E87.1 Peripheral neuropathy G62.9 Malaise and fatigue R53.81; R53.83 Congestive heart failure I50.9 Aortic stenosis I35.0 Uncontrolled hypertension I10
[2022-10-27] MEDS: FUROsemide 20 mg Tablet PO (14:43)
[2022-10-27] MEDS: potassium chloride ER 20 mEq Tablet 40 MEQ PO (14:43)
[2022-10-27] MEDS: chlorthalidone 25 mg Tablet PO (14:51)
--- NOTE | 2022-10-27 15:46 | P.DS_ITS ---
Discharge Providers Date of Admission: 10/24/22 11:53 Date of Discharge: October 27, 2022 Attending Provider at Admission: Mildred Adkins MD Attending Provider at Discharge: Mildred Adkins MD Primary Care Provider: Doe Bui MD Diagnoses at Discharge Discharge Diagnosis (1) Community acquired pneumonia: Status: Acute (2) DNR (do not resuscitate): Status: Acute (3) Chronic respiratory failure with hypoxia: Status: Acute (4) Nausea: Status: Acute (5) Right lower lobe pneumonia: Status: Acute (6) Chronic hyponatremia: Status: Acute (7) Peripheral neuropathy: Status: Acute (8) Malaise and fatigue: Status: Acute (9) Congestive heart failure: Status: Acute (10) Aortic stenosis: Status: Acute (11) Uncontrolled hypertension: Status: Acute Reason for Visit Reason for Visit: sick Hospital Course Hospital Course 82-year female who was admitted through the time in this hospital for for generalized weakness and fatigue hypertensive urgency, her sodium was 115, she was given normal saline initially that improved her sodium 219 patient started having shortness of breath with worsening of mild pleural effusion and lower extremity edema for which she required Lasix patient was very anxious throughout her hospitalization, even with room air oxygen saturation was 92 to 93% and patient kept complaining of shortness of breath she was given anxiolytics which improved her symptoms, patient is adamant that she wants to go home and is sick of staying in the hospital she does not want to stay 1 more day. She remained hypertensive, I have discontinued diuretics, will give her hydralazine, she has remained bradycardic I have discontinued Coreg as well. She will finish her antibiotic regimen. At baseline requiring 2 to 3 L of oxygen since her diagnosis of pneumonia. Patient does not want to go to skilled nursing which we recommended. Patient has low serum osmolarity, serum osmolarity around 255, urine osmolality 288, hypervolemic on physical exam. I have asked her to use diuretics judiciously., She is high risk for readmissions in case of any admissions in future she should go to SNF. Physical Exam Narrative: P.o. intake has been poor Lower extremity edema Abdomen soft Currently on room air Anxious appearing Nonfocal neuro exam is at the bedside GCS 15 Discharge Data Studies Completed and Pending Completed Studies During Hospitalization Category Date Time Status CT chest wo con [id number] Routine Cat Scan 10/26/22 18:39 Completed XR chest 1V portable [id number] Routine Exams 10/26/22 11:53 Completed XR chest 1V portable [id number] Stat Exams 10/24/22 09:23 Completed Pending at discharge Category Date Time Status BMP [Basic Metabolic Panel] AM LABS Lab 10/28/22 04:00 Ordered Urine Sodium [Urine Random Sodium] Routine Lab 10/27/22 13:27 Uncollected Radiology Impressions Chest X-Ray 10/26/22 11:53 IMPRESSION: Opacity is seen involving mid and lower right lung with significant chronic component with prior exam though with increased opacity right lung base with today's exam suggesting increased right basilar infiltrate and effusion. Findings suggest superimposed acute upon chronic changes with prior exam. Chest CT 10/26/22 18:39 IMPRESSION: 1. Emphysematous change. 2. A component of reticulonodular infiltrate along with alveolar infiltrate with areas of consolidation within the right lung, as noted above. Mild partial nodular appearance on the lung windows. Findings could represent pneumonia including atypical etiology given the persistence with prior exam, though underlying malignancy is not excluded as well. 3. Small posterior pleural effusions, slightly less prominent with prior exam. 4. Other nonacute findings as noted above. Laboratory Results WBC 8.5 10^3/uL (4.0-10.0) 10/25/22 04:29 RBC 3.19 10^6/uL (4.1-5.3) L 10/25/22 04:29 Hgb 10.1 g/dL (11.5-15.3) L 10/25/22 04:29 Hct 30.9 % (37.0-47.0) L 10/25/22 04:29 MCV 96.9 fl (81-99) 10/25/22 04:29 MCH 31.7 pg (28.0-34.0) 10/25/22 04:29 MCHC 32.7 g/dL (30.0-36.0) 10/25/22 04:29 RDW 13.3 % (12.1-15.1) 10/25/22 04:29 Plt Count 367 10^3/cmm (130-400) 10/25/22 04:29 MPV 10.5 fL (7.4-10.4) H 10/25/22 04:29 Neut % (Auto) 71.3 % 10/25/22 04:29 Lymph % (Auto) 11.6 % 10/25/22 04:29 [place] % (Auto) 12.6 % 10/25/22 04:29 Eos % (Auto) 3.2 % 10/25/22 04:29 Baso % (Auto) 0.8 % 10/25/22 04:29 Neut # (Auto) 6.04 10^3/uL (1.8-7.7) 10/25/22 04:29 Lymph # (Auto) 1.0 10^3/uL (0.8-4.8) 10/25/22 04:29 [place] # (Auto) 1.1 10^3/uL (0.2-0.9) H 10/25/22 04:29 Eos # (Auto) 0.3 10^3/uL (0.0-0.8) 10/25/22 04:29 Baso # (Auto) 0.1 10^3/uL (0.0-0.1) 10/25/22 04:29 Nucleated RBC % (auto) 0 % 10/25/22 04:29 Nucleated RBCs # 0.0 /100WBC 10/25/22 04:29 Sodium 119 mmol/L (136-145) L* 10/27/22 04:40 Potassium 3.9 mmol/L (3.5-5.1) 10/27/22 04:40 Chloride 84 mmol/L (98-107) L 10/27/22 04:40 Carbon Dioxide 26 mmol/L (22-29) 10/27/22 04:40 Anion Gap 12.9 (5-19) 10/27/22 04:40 BUN 13 mg/dL (8-23) 10/27/22 04:40 Creatinine 0.6 mg/dL (0.5-0.9) 10/27/22 04:40 GFR Calculation Not Reportable 10/27/22 04:40 Glucose 104 mg/dL (65-115) 10/27/22 04:40 Serum Osmolality 251 mOsm/kg (278-305) L 10/24/22 07:54 Calculated Osmolality 248 mOsm/kg (285-295) L 10/27/22 04:40 Uric Acid 3.9 mg/dL (2.4-5.7) 10/24/22 17:54 Calcium 8.1 mg/dL (8.5-10.5) L 10/27/22 04:40 Magnesium 1.5 mg/dL (1.7-2.3) L 10/25/22 04:29 Total Bilirubin 0.6 mg/dL (0.15-1.2) 10/24/22 10:10 AST 20 U/L (0-32) 10/24/22 10:10 ALT 9 U/L (0-33) 10/24/22 10:10 Alkaline Phosphatase 75 U/L (35-105) 10/24/22 10:10 Troponin T Baseline 68 ng/L (0-10) H 10/25/22 04:29 Troponin T 120 Minute 72.81 ng/L (0-10) H 10/25/22 06:08 Delta Troponin T 4.81 ABS# (0-10) 10/25/22 06:08 Troponin T Hi Sens 6Hr 70.00 ng/L (0-10) H 10/25/22 10:44 Troponin T Hi Sens 6Hr Delta 2.00 ng/L (0-12) 10/25/22 10:44 NT-Pro-B Natriuret Pep 74949 pg/mL (0-450) H 10/24/22 10:10 Total Protein 6.8 g/dL (6.6-8.7) 10/24/22 10:10 Albumin 3.1 g/dL (3.5-5.2) L 10/24/22 10:10 Globulin 3.7 g/dL (1.3-4.6) 10/24/22 10:10 Lipase 42 U/L (13-60) 10/24/22 10:10 Urine Color Yellow (Yellow) 10/24/22 10:44 Urine Appearance Clear (CLEAR) 10/24/22 10:44 Urine pH 6 (5-7) 10/24/22 10:44 Ur Specific [place] 1.005 (1.005-1.030) 10/24/22 10:44 Urine Protein Neg (Negative) 10/24/22 10:44 Urine Glucose (UA) Norm (Normal) 10/24/22 10:44 Urine Ketones Negative (Negative) 10/24/22 10:44 Urine Blood Trace (Negative) H 10/24/22 10:44 Urine Nitrate Negative (Negative) 10/24/22 10:44 Urine Bilirubin Neg (Negative) 10/24/22 10:44 Urine Urobilinogen Norm mg/dL (Negative) 10/24/22 10:44 Ur Leukocyte Esterase Negative (Negative) 10/24/22 10:44 Urine RBC 0-4 /hpf (0-2) H 10/24/22 10:44 Urine WBC 0-4 /hpf (0-5) H 10/24/22 10:44 Ur Squamous Epith Cells 5-10 /hpf (0-5) H 10/24/22 10:44 Amorphous Sediment Not Reportable 10/24/22 10:44 Urine Bacteria Trace /hpf (NONE) 10/24/22 10:44 Urine Osmolality 288 mOsm/kg (50-1200) 10/24/22 10:44 Vitals Last Vital Signs Temp 98.2 F 10/27/22 15:39 Pulse 77 10/27/22 15:39 Resp 16 10/27/22 15:39 BP 164/84 10/27/22 15:39 Pulse Ox 98 10/27/22 15:39 O2 Del Method Nasal Cannula 10/27/22 15:39 O2 Flow Rate 2 10/27/22 15:39 Discharge Plan Discharge Patient Disposition: Home Condition: Stable Prescriptions: New hydralazine 25 mg Tablet 25 mg PO TID Qty: 90 4RF hydralazine 25 mg Tablet 25 mg PO TID Qty: 90 3RF clonidine HCl 0.1 mg tablet 0.1 mg PO BID Qty: 60 0RF Continued levothyroxine 88 mcg tablet 88 mcg PO DAILY Qty: 90 3RF ondansetron HCl 4 mg tablet 4 mg PO Q6H PRN (Reason: nausea and vomiting) Qty: 30 3RF valsartan 160 mg tablet See Rx Instructions .ROUTE .COMPLEX Qty: 180 3RF Dose Instruction: Take 1 tablet by mouth twice daily Rx Instructions: Take 1 tablet by mouth twice daily isosorbide mononitrate 60 mg tablet extended release 24 hr See Rx Instructions .ROUTE .COMPLEX Qty: 90 3RF Dose Instruction: Take 1 tablet by mouth once daily Rx Instructions: Take 1 tablet by mouth once daily magnesium oxide 400 mg (241.3 mg magnesium) tablet See Rx Instructions .ROUTE .COMPLEX Qty: 180 3RF Dose Instruction: Take 1 tablet by mouth twice daily Rx Instructions: Take 1 tablet by mouth twice daily hydrocodone-acetaminophen 10-325 mg tablet 1 tab PO Q4H PRN (Reason: Pain) 30 Days Qty: 180 0RF tamsulosin 0.4 mg capsule 0.4 mg PO BID felodipine 10 mg tablet extended release 24 hr 10 mg PO DAILY gabapentin 100 mg capsule 100 mg PO BID albuterol sulfate 90 mcg/actuation HFA aerosol inhaler 1 inh inhalation Q6H PRN (Reason: shortness of breath or wheezing) Qty: 8.5 0RF benzonatate 100 mg Capsule 100 mg PO TID PRN (Reason: Cough) levofloxacin 750 mg tablet 750 mg PO DAILY 7 Days Qty: 7 0RF Discontinued torsemide 5 mg tablet 5 mg PO DAILY Qty: 90 3RF Hold Instructions: Resume on 10/27/22. potassium chloride 20 mEq tablet extended release 20 meq PO DAILY Hold Instructions: Resume on 10/27/22. hydrochlorothiazide 25 mg tablet 25 mg PO DAILY Hold Instructions: Resume on 10/27/22. sodium chloride 1,000 mg Tablet,Soluble 1,000 mg PO BID Qty: 14 0RF clonidine HCl 0.1 mg Tablet 0.1 mg PO BEDTIME carvedilol 3.125 mg tablet 3.125 mg PO BID Discharge Orders: Discharge Order (Routine); Ordered 10/27/22 Ordered By: Mildred Adkins Referrals: Doe Bui MD [Primary Care Provider] - 10/29/22 11:20 am Patient Instructions: Hydralazine (By mouth), Chronic Hypertension (GEN), Community Acquired Pneumonia (GEN), Opioid Safety Discharge Attestations Time Spent in Discharge Care*: greater than 30 min Quality Metrics Clinical Quality Measures [ No reported AMI, CVA or VTE this stay] Coding Level of Care Code Acute Code for Chg Fwd Diagnoses Community acquired pneumonia J18.9 DNR (do not resuscitate) Z66 Chronic respiratory failure with hypoxia J96.11 Nausea R11.0 Right lower lobe pneumonia J18.9 Chronic hyponatremia E87.1 Peripheral neuropathy G62.9 Malaise and fatigue R53.81; R53.83 Congestive heart failure I50.9 Aortic stenosis I35.0 Uncontrolled hypertension I10
== END 2022-10-27 16:45 | disposition home health service (06) | DRG 640 ==
LOC: ER 13:16 → ER IP 16:25 → MEDSURG 17:37
PROVIDERS: Internal Medicine; Physician Assistant; Admitting Provider Internal Medicine; Emergency Provider Family Medicine; PCP Family Medicine; Visit Provider Internal Medicine
DX: E87.1 Hypo-osmolality and hyponatremia (principal); J18.9 Pneumonia, unspecified organism; J96.11 Chronic respiratory failure with hypoxia; I16.0 Hypertensive urgency; Z79.891 Long term (current) use of opiate analgesic; Z79.51 Long term (current) use of inhaled steroids; Z99.81 Dependence on supplemental oxygen; G89.29 Other chronic pain; M54.9 Dorsalgia, unspecified; I25.10 Atherosclerotic heart disease of native coronary artery without angina pectoris; Z95.5 Presence of coronary angioplasty implant and graft; I25.2 Old myocardial infarction; M54.12 Radiculopathy, cervical region; I35.0 Nonrheumatic aortic (valve) stenosis; Z66 Do not resuscitate; G62.9 Polyneuropathy, unspecified
CPT/HCPCS: 12345; 36415; 36416; 36430; 36569; 51702; 71045; 71250; 74176; 74230; 80048; 80053; 80061; 81001; 81003; 82436; 82533; 82570; 82607; 82728; 82746; 82962; 83540; 83550; 83605; 83690; 83735; 83880; 83930; 83935; 84100; 84133; 84145; 84295; 84300; 84443; 84484; 84540; 84550; 85025; 85610; 85651; 85730; 85999; 86140; 86141; 86480; 86850; 86900; 86920; 87040; 87426; 87806; 92523; 92611; 93005; 93306; 94640; 94664; 96361; 96372; 96374; 96375; 96376; 97116; 97161; 97162; 97166; 97530; 97535; 99285; C1751; C9113; J1170; J1650; J1940; J2765; J7030; J7040; J7131; P9016; P9046; Q3014

== ENCOUNTER 2022-10-29 15:39 | Inpatient (IN) | payer MEDICARE, OTHER, SELFPAY ==
[2022-10-29] VITALS (13 sets, daily range): BP systolic 167–182; BP diastolic 60–85; PULSE 68–89; RESP 15–28; TEMP 36.3; O2SAT 91–100; BMI 24.1; BMI 26.0
--- NOTE | 2022-10-29 16:03 | XRR_ITS ---
PROCEDURE INFORMATION: Exam: XR Chest Exam date and time: 10/29/2022 4:11 PM Age: 82 years old Clinical indication: Shortness of breath; Additional info: SOB TECHNIQUE: Imaging protocol: Radiologic exam of the chest. Views: 1 view. COMPARISON: Chest x-ray performed October 24, 2022. FINDINGS: Lungs: There is patchy consolidation right mid to lower lung zone relatively unchanged presumed secondary to pneumonia. Left lung field is aerated and clear. Pleural spaces: Unremarkable. No pleural effusion. No pneumothorax. Heart/Mediastinum: Cardiac silhouette is mildly enlarged, unchanged. Bones/joints: Unremarkable for age. XR/XR chest 1V portable [id number] IMPRESSION: Cardiomegaly with scattered airspace disease right mid to lower lung zone unchanged, presumed secondary to pneumonia. Continued follow-up advised.
--- NOTE | 2022-10-29 16:04 | ECG_ITS ---
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 Measurements Intervals [place] Rate: 68 P: 65 PA: 175 QRS: -36 QRSD: 173 T: 228 QT: 488 QTc: 521 Interpretive Statements SINUS RHYTHM LEFT AXIS DEVIATION [QRS AXIS < -30] LEFT BUNDLE BRANCH BLOCK [120+ ms QRS DURATION, 80+ ms Q/S IN V1/V2, 85+ ms R IN I/aVL/V5/V6] Compared to ECG 10/25/2022 10:24:14 No significant changes Electronically Signed On 10-29-2022 23:03:10 CDT by Edson Ahumada M.D. [id number]
--- NOTE | 2022-10-29 16:25 | W.ED.RECABL ---
HPI - Recheck/Abnormal Lab/Rx General: Chief Complaint: Recheck/Abnormal Lab/Rx Stated Complaint: abnormal Labs, High Sodium Time Seen by Provider: 10/29/22 16:01 History of Present Illness: 82-year-old female presents to the emergency department chief complaint of being sent in from outpatient clinic for low sodium level. Patient recently discharged in the hospital couple of days ago for aortic stenosis and fluid overload heart failure as well as hyponatremia patient presents in today reports generalized weakness fatigue with appetite reduction. Patient does not recall any recent chest pain reports moderate shortness of breath does not recall any other associated symptoms. Patient does report that she did not take her Lasix early this morning that she has been prescribed. The patient does appear to be a very poor historian. Review of Systems General: Reports: 10 or more systems reviewed and unremarkable except in HPI and below Const: Reports: fatigue and malaise; Denies: fever(s) or chills Eyes: Denies: change in vision or blurry vision Card: Denies: chest pain or palpitations Resp: Reports: dyspnea; Denies: productive cough GI: Denies: abdominal pain, nausea or vomiting : Denies: flank pain Musc: Reports: extremity swelling (Bilateral lower extremity edema appreciated 2+); Denies: extremity pain Skin/Breast: Denies: rash or pruritus Neuro: Denies: headache(s) Psych: Denies: anxiety or depression Miller/Lymph: Denies: easy bleeding All/Imm: Denies: urticaria, throat swelling or facial swelling PFSH ED PFSH: Medical History Aortic stenosis Cervical radiculopathy Chronic hyponatremia Chronic low back pain Has had recent back surgery Chronic respiratory failure with hypoxia Community acquired pneumonia Congestive heart failure Coronary artery disease Dehydration DNR (do not resuscitate) History of CA (myocardial infarction) 2017--had coronary artery stent placed Hypertension Chronic hypertension diagnosed at the age of 31. Follows up with cardiology Dr. Castellanos as well as her primary care provider. Hypoxia Malaise and fatigue Nausea No pertinent past medical history Denies diabetes, asthma, seizures, DVT/PE PCP: Dr. Bui Peripheral neuropathy Pneumonia Right lower lobe pneumonia Uncontrolled hypertension Vaginal prolapse 09/30/2021--grade 3-4 cystocele, grade 3 vault prolapse, grade 1 rectocele Surgical History History of back surgery March 2021--performed by Dr. Nunez at [facility]. History of heart artery stent 2018 after heart attack History of tubal ligation In her mid 30s---done through supra umbilical minilaparotomy incision S/P hysterectomy Vaginal hysterectomy for prolapse performed by Dr. George in 2018. Her ovaries were not removed. Family History Mother Heart disease Hypertension Colon cancer diagnosed in her late 60s Daughter Heart disease Family/Other Breast cancer maternal aunt, age at diagnosis unknown Social History Smoking and tobacco status: never smoked Substance/Drug Use: never Physical Exam Const: COMMON NORMALS: no acute distress, patient oriented x3 and healthy appearing HENMT: COMMON NORMALS: normocephalic and atraumatic HEAD & SCALP: normocephalic and atraumatic Eye: COMMON NORMALS: Equal, round and reactive pupils present and EOMs intact bilaterally PUPIL: Yes Equal, round and reactive pupils present Neck/C-Spine: COMMON NORMALS: full ROM, supple and no JVD Lymph: LYMPHATIC: no lymphadenopathy noted Chest: COMMONS NORMALS: normal inspection of the chest and normal palpation of entire chest wall Resp: OTHER: Diminished breath sounds appreciate bilaterally no is wheezing crackles rales or rhonchi noted. Cardio: COMMON NORMALS: no JVD, regular rate and regular rhythm RATE: regular rate RHYTHM: regular rhythm GI: COMMON NORMALS: Normal to inspection, nondistended, normoactive bowel sounds present, Soft to palpation and non-tender INSPECTION: Yes normal to inspection PALPATION: Yes Soft to palpation : COMMON NORMALS: Yes no CVA tenderness BLADDER/KIDNEY EXAM: Yes no CVA tenderness Back/Pelvis: COMMON NORMALS: no CVA tenderness Extremity: OTHER: Bilateral lower extremity pitting edema appreciated bilaterally Neuro: COMMON NORMALS: patient oriented x3, CN's II-XII intact bilaterally, moves all extremities and no focal motor deficits Psych: COMMON NORMALS: mental status grossly normal, Normal thought process present, cooperative and normal affect THOUGHT PROCESS: Normal thought process present Skin: COMMON NORMALS: no rashes or lesions noted GENERAL SKIN EXAM: no rashes or lesions noted Course Vital Signs: Vital signs: Vital Signs Temperature 97.4 F L 10/29/22 15:55 Pulse Rate 70 10/29/22 15:55 Respiratory Rate 18 10/29/22 15:55 Blood Pressure 174/73 10/29/22 15:55 Pulse Oximetry 100 10/29/22 15:55 Oxygen Delivery Me thod Nasal Cannula 10/29/22 15:55 Oxygen Flow Rate 3 10/29/22 15:55 MDM - Recheck/Abnormal Lab/Rx Medical Decision Making Due to the patient's symptoms and condition IV will be established basic lab and imaging will be obtained patient will provided with a dose of Lasix as she is due for 1 she did not take her this morning we will continue to follow anticipate need for further admission due to refractory hyponatremia and medication noncompliance. 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 Farrar hospitalist that has accepted the patient to the ICU. Lab Data 10/29/22 17:30 10/29/22 17:30 Radiology Impressions Chest X-Ray 10/29/22 16:03 IMPRESSION: Cardiomegaly with scattered airspace disease right mid to lower lung zone unchanged, presumed secondary to pneumonia. Continued follow-up advised. Laboratory Results WBC 8.4 10^3/uL (4.0-10.0) 10/29/22 17:30 RBC 2.92 10^6/uL (4.1-5.3) L 10/29/22 17:30 Hgb 9.1 g/dL (11.5-15.3) L 10/29/22 17:30 Hct 27.3 % (37.0-47.0) L 10/29/22 17:30 MCV 93.5 fl (81-99) 10/29/22 17:30 MCH 31.2 pg (28.0-34.0) 10/29/22 17:30 MCHC 33.3 g/dL (30.0-36.0) 10/29/22 17:30 RDW 12.9 % (12.1-15.1) 10/29/22 17:30 Plt Count 394 10^3/cmm (130-400) 10/29/22 17:30 MPV 10.4 fL (7.4-10.4) 10/29/22 17:30 Neut % (Auto) 80.4 % 10/29/22 17:30 Lymph % (Auto) 10.4 % 10/29/22 17:30 [place] % (Auto) 7.8 % 10/29/22 17:30 Eos % (Auto) 1.0 % 10/29/22 17:30 Baso % (Auto) 0.2 % 10/29/22 17:30 Neut # (Auto) 6.74 10^3/uL (1.8-7.7) 10/29/22 17:30 Lymph # (Auto) 0.9 10^3/uL (0.8-4.8) 10/29/22 17:30 [place] # (Auto) 0.7 10^3/uL (0.2-0.9) 10/29/22 17:30 Eos # (Auto) 0.1 10^3/uL (0.0-0.8) 10/29/22 17:30 Baso # (Auto) 0.0 10^3/uL (0.0-0.1) 10/29/22 17:30 Nucleated RBC % (auto) 0 % 10/29/22 17: Nucleated RBCs # 0.0 /100WBC 10/29/22 17:30 PT 12.60 SECONDS (12.1-14.9) 10/29/22 17:30 INR 0.92 (0.8-1.2) 10/29/22 17:30 APTT 34.8 SECONDS (23.9-36.7) 10/29/22 17:30 Sodium 113 mmol/L (136-145) L* 10/29/22 17:30 Potassium 4.3 mmol/L (3.5-5.1) 10/29/22 17:30 Chloride 74 mmol/L (98-107) L 10/29/22 17:30 Carbon Dioxide 27 mmol/L (22-29) 10/29/22 17:30 Anion Gap 16.3 (5-19) 10/29/22 17:30 BUN 23 mg/dL (8-23) 10/29/22 17:30 Creatinine 0.8 mg/dL (0.5-0.9) 10/29/22 17:30 GFR Calculation Not Reportable 10/29/22 17:30 Glucose 109 mg/dL (65-115) 10/29/22 17:30 Calculated Osmolality 240 mOsm/kg (285-295) L 10/29/22 17:30 Lactic Acid (Sepsis) 1.3 mmol/L (0.5-2.2) 10/29/22 18:32 Lactate Cancelled 10/29/22 17:30 Calcium 8.3 mg/dL (8.5-10.5) L 10/29/22 17:30 Total Bilirubin 0.6 mg/dL (0.15-1.2) 10/29/22 17:30 AST 29 U/L (0-32) 10/29/22 17:30 ALT 10 U/L (0-33) 10/29/22 17:30 Alkaline Phosphatase 84 U/L (35-105) 10/29/22 17:30 Troponin T Baseline 91 ng/L (0-10) H 10/29/22 17:30 Troponin T 120 Minute 86.15 ng/L (0-10) H 10/29/22 19:23 Delta Troponin T -4.85 ABS# (0-10) L 10/29/22 19:23 C-Reactive Protein 23.8 mg/L (0.0-4.9) H 10/29/22 17:30 NT-Pro-B Natriuret Pep 31019 pg/mL (0-450) H 10/29/22 17:30 Total Protein 6.7 g/dL (6.6-8.7) 10/29/22 17:30 Albumin 3.1 g/dL (3.5-5.2) L 10/29/22 17:30 Globulin 3.6 g/dL (1.3-4.6) 10/29/22 17:30 Discharge Plan Discharge Patient Disposition: Admitted As Inpatient Clinical Impression: Chronic hyponatremia, Acute exacerbation of CHF (congestive heart failure), Elevated troponin Condition: Stable Coding Level of Care Code ED Manager Furniture for Lawrence Begum
[2022-10-29 17:41] LABS: Basophils % 0.2 %; Eosinophils # 0.1 10^3/uL (0.0-0.8); Hematocrit 27.3 % (37.0-47.0); Hemoglobin 9.1 g/dL (11.5-15.3); Lymphocytes # 0.9 10^3/uL (0.8-4.8); Lymphocytes % 10.4 %; Mean Corpuscular HGB Conc 33.3 g/dL (30.0-36.0); Mean Corpuscular Hemoglobin 31.2 pg (28.0-34.0); Mean Corpuscular Volume 93.5 fl (81-99); Mean Platelet Volume 10.4 fL (7.4-10.4); Monocytes # 0.7 10^3/uL (0.2-0.9); Monocytes % 7.8 %; Neutrophils # 6.74 10^3/uL (1.8-7.7); Neutrophils % 80.4 %; Nucleated Red Blood Cells % 0 %; Platelet Count 394 10^3/cmm (130-400); Red Blood Count 2.92 10^6/uL (4.1-5.3); Red Cell Distribution Width 12.9 % (12.1-15.1); White Blood Count 8.4 10^3/uL (4.0-10.0)
[2022-10-29 17:57] LABS: INR 0.92 (0.8-1.2)
[2022-10-29 17:58] LABS: Partial Thromboplastin Time 34.8 SECONDS (23.9-36.7)
[2022-10-29 18:13] LABS: Alanine Aminotransferase 10 U/L (0-33); Albumin Level 3.1 g/dL (3.5-5.2); Alkaline Phosphatase 84 U/L (35-105); Blood Urea Nitrogen 23 mg/dL (8-23); C Reactive Protein 23.8 mg/L (0.0-4.9); Calcium 8.3 mg/dL (8.5-10.5); Carbon Dioxide 27 mmol/L (22-29); Chloride 74 mmol/L (98-107); Globulin 3.6 g/dL (1.3-4.6); Glucose 109 mg/dL (65-115); NT Pro B Type Natriuretic Pept 25495 pg/mL (0-450); Osmolality Calculated 240 mOsm/kg (285-295); Total Bilirubin 0.6 mg/dL (0.15-1.2); Total Protein 6.7 g/dL (6.6-8.7)
[2022-10-29 18:18] LABS: Anion Gap 16.3 (5-19); Aspartate Amino Transferase 29 U/L (0-32); Potassium 4.3 mmol/L (3.5-5.1)
[2022-10-29 18:19] LABS: Sodium 113 mmol/L (136-145)
[2022-10-29 18:29] LABS: Troponin(5th) Baseline 91 ng/L (0-10)
[2022-10-29] MEDS: HYDROcodone-acetaminophen 10-325 mg Tablet 1 TAB PO (18:32)
[2022-10-29 19:04] LABS: Lactic Acid level (Lactate) 1.3 mmol/L (0.5-2.2)
[2022-10-29] MEDS: sodium chloride 0.9% 1,000 ML 75 ML IV (19:19)
[2022-10-29] MEDS: FUROsemide 10 mg/mL SDV 4mL 40 MG IVP (19:20)
[2022-10-29 20:04] LABS: Add Urine Microscopic? NO; Charge for UA Resulting for Rev
[2022-10-29 20:13] LABS: Troponin 5 2HR 86.15 ng/L (0-10)
[2022-10-29 20:14] LABS: Troponin 5 2HR Delta -4.85 ABS# (0-10)
[2022-10-29] MEDS: HYDROmorphone 1 mg/mL INJ 1 mL 0.5 MG IVP (20:16)
[2022-10-29 20:19] LABS: Bilirubin Urine Neg (Negative); Blood Urine Neg (Negative); Glucose Urine UA Norm (Normal); Ketones Urine Negative (Negative); Leukocyte Esterase Urine Negative (Negative); Nitrate Urine Negative (Negative); Protein Urine Neg (Negative); Specific Gravity, Urine 1.005 (1.005-1.030); Urine Appearance Clear (CLEAR); Urine Color Yellow (Yellow); Urobilinogen Urine Norm (Negative); pH Urine 6.5 (5-7)
--- NOTE | 2022-10-29 21:01 | CTR_ITS ---
PROCEDURE INFORMATION: Exam: CT Chest Without Contrast; Diagnostic Exam date and time: 10/29/2022 10:27 PM Age: 82 years old Clinical indication: Other: Weakness; Additional info: Weakness, poor appetite, hyponatremia TECHNIQUE: Imaging protocol: Diagnostic computed tomography of the chest without contrast. Radiation optimization: All CT scans at this facility use at least one of these dose optimization techniques: automated exposure control; mA and/or kV adjustment per patient size (includes targeted exams where dose is matched to clinical indication); or iterative reconstruction. REPORTING DATA: Count of CT and Cardiac NM exams in prior 12 months: This patient has received 3 known CTs and 0 known cardiac nuclear medicine studies in the 12 months prior to the current study. COMPARISON: CT chest wo con [id number] 10/26/2022 7:51 PM RADIATION DOSE METRICS: Total DLP (mGy-cm): 382 FINDINGS: Lungs: Areas of tree-in-bud densities are noted in the right upper lobe and in the left upper lobe/lingula. This may represent infectious bronchiolitis versus mycobacterial infection. Confluent consolidation noted in the posterior right lower lobe. Additional airspace disease noted in the anterolateral right lower lobe. Pleural spaces: Minimal bilateral pleural effusions. The right effusion may be partially loculated. No pneumothorax. Heart: No cardiomegaly. No pericardial effusion. Coronary arteries: The coronary arteries demonstrate atherosclerotic calcifications. Lymph nodes: Calcified mediastinal and right hilar lymph nodes noted, consistent with old granulomatous disease. No pathologically enlarged, noncalcified lymph nodes demonstrated. Punctate calcified pulmonary granuloma, posterior right upper lobe, series 4, images 16 and 17. Vasculature: Atherosclerosis of the thoracic aorta. No aortic aneurysm. Bones/joints: Scoliosis and degenerative change of the thoracic spine. No acute osseous abnormality. Soft tissues: The soft tissues are unremarkable as demonstrated. PROCEDURE INFORMATION: Exam: CT Abdomen And Pelvis Without Contrast Exam date and time: 10/29/2022 10:27 PM Age: 82 years old Clinical indication: Other: Weakness; Additional info: Weakness, poor appetitei, hyponatremia TECHNIQUE: Imaging protocol: Computed tomography of the abdomen and pelvis without contrast. Radiation optimization: All CT scans at this facility use at least one of these dose optimization techniques: automated exposure control; mA and/or kV adjustment per patient size (includes targeted exams where dose is matched to clinical indication); or iterative reconstruction. REPORTING DATA: Count of CT and Cardiac NM exams in prior 12 months: This patient has received 3 known CTs and 0 known cardiac nuclear medicine studies in the 12 months prior to the current study. COMPARISON: CT pelvis wo con [id number] 04/25/2021 10:56 AM RADIATION DOSE METRICS: Total DLP (mGy-cm): 390 FINDINGS: Liver: The liver is unremarkable in appearance. Gallbladder and bile ducts: Multiple small calcified gallstones are present in the gallbladder. There are no secondary signs of cholecystitis. Pancreas: The pancreas is normal in appearance. No pancreatic duct dilatation. Spleen: Calcified granulomas are noted in the spleen. Calcified granulomas are noted in the spleen. Adrenal glands: Unremarkable. No mass. Kidneys and ureters: Atrophy of the upper/mid left kidney. No renal cyst or mass. No hydronephrosis. Stomach and bowel: Retained stool throughout the colon, suggesting constipation. No inflammatory change of the colon noted. Appendix: No evidence of appendicitis. Intraperitoneal space: Mild ascites in the pelvis. No loculated fluid collection. Vasculature: Abdominal aorta demonstrates severe atherosclerosis. There is severe narrowing of the aortic lumen near the level of the renal arteries. No aneurysm. Lymph nodes: No pathologically enlarged lymph nodes. Urinary bladder: There is a Lim catheter in the urinary bladder. The urinary bladder is unremarkable in appearance. Reproductive: Uterus not visualized, suggesting prior hysterectomy. Bones/joints: Scoliosis, degeneration, and postop change noted of the lumbar spine. The hardware appears intact as demonstrated. There are no acute osseous abnormalities noted. Soft tissues: Unremarkable. CT/[place] [id number] IMPRESSION: 1. Areas of tree-in-bud densities are noted in the right upper lobe and in the left upper lobe/lingula. This may represent infectious bronchiolitis versus mycobacterial infection. 2. Confluent consolidation noted in the posterior right lower lobe. Additional airspace disease noted in the anterolateral right lower lobe. This is concerning for right lower lobe pneumonia. 3. Minimal bilateral pleural effusions. The right effusion may be partially loculated. 4. Findings of old granulomatous disease are identified. IMPRESSION: 1. Multiple small calcified gallstones are present in the gallbladder. There are no secondary signs of cholecystitis. 2. Abdominal aorta demonstrates severe atherosclerosis. There is severe narrowing of the aortic lumen near the level of the renal arteries. No aneurysm. 3. Retained stool throughout the colon, suggesting constipation. No inflammatory change of the colon noted. 4. Mild ascites in the pelvis. No loculated fluid collection.
--- NOTE | 2022-10-29 21:14 | ED_ITS ---
HPI - Recheck/Abnormal Lab/Rx General: Chief Complaint: Recheck/Abnormal Lab/Rx Stated Complaint: abnormal Labs, High Sodium Time Seen by Provider: 10/29/22 16:01 PFSH ED PFSH: Medical History Aortic stenosis Cervical radiculopathy Chronic hyponatremia Chronic low back pain Has had recent back surgery Chronic respiratory failure with hypoxia Community acquired pneumonia Congestive heart failure Coronary artery disease Dehydration DNR (do not resuscitate) History of ND (myocardial infarction) 2018--had coronary artery stent placed Hypertension Chronic hypertension diagnosed at the age of 31. Follows up with cardiology Dr. Castellanos as well as her primary care provider. Hypoxia Malaise and fatigue Nausea No pertinent past medical history Denies diabetes, asthma, seizures, DVT/PE PCP: Dr. Bui Peripheral neuropathy Pneumonia Right lower lobe pneumonia Uncontrolled hypertension Vaginal prolapse 09/30/2021--grade 3-4 cystocele, grade 3 vault prolapse, grade 1 rectocele Surgical History History of back surgery March 2021--performed by Dr. Nunez at [facility] [place]. History of heart artery stent 2018 after heart attack History of tubal ligation In her mid 30s---done through supra umbilical minilaparotomy incision S/P hysterectomy Vaginal hysterectomy for prolapse performed by Dr. George in 2018. Her ovaries were not removed. Family History Mother Heart disease Hypertension Colon cancer diagnosed in her late 60s Daughter Heart disease Family/Other Breast cancer maternal aunt, age at diagnosis unknown Social History Smoking and tobacco status: never smoked Substance/Drug Use: never Course Vital Signs: Vital signs: Vital Signs Temperature 97.4 F L 10/29/22 15:55 Pulse Rate 70 10/29/22 15:55 Respiratory Rate 18 10/29/22 15:55 Blood Pressure 174/73 10/29/22 15:55 Pulse Oximetry 100 10/29/22 15:55 Oxygen Delivery Me thod Nasal Cannula 10/29/22 15:55 Oxygen Flow Rate 3 10/29/22 15:55 MDM - Recheck/Abnormal Lab/Rx Lab Data 10/29/22 17:30 10/29/22 17:30 Radiology Impressions Chest X-Ray 10/29/22 16:03 IMPRESSION: Cardiomegaly with scattered airspace disease right mid to lower lung zone unchanged, presumed secondary to pneumonia. Continued follow-up advised. Laboratory Results WBC 8.4 10^3/uL (4.0-10.0) 10/29/22 17:30 RBC 2.92 10^6/uL (4.1-5.3) L 10/29/22 17:30 Hgb 9.1 g/dL (11.5-15.3) L 10/29/22 17:30 Hct 27.3 % (37.0-47.0) L 10/29/22 17: MCV 93.5 fl (81-99) 10/29/22 17: MCH 31.2 pg (28.0-34.0) 10/29/22 17: MCHC 33.3 g/dL (30.0-36.0) 10/29/22 17: RDW 12.9 % (12.1-15.1) 10/29/22 17: Plt Count 394 10^3/cmm (130-400) 10/29/22 17: MPV 10.4 fL (7.4-10.4) 10/29/22 17: Neut % (Auto) 80.4 % 10/29/22 17:30 Lymph % (Auto) 10.4 % 10/29/22 17:30 [place] % (Auto) 7.8 % 10/29/22 17:30 Eos % (Auto) 1.0 % 10/29/22 17: Baso % (Auto) 0.2 % 10/29/22 17:30 Neut # (Auto) 6.74 10^3/uL (1.8-7.7) 10/29/22 17: Lymph # (Auto) 0.9 10^3/uL (0.8-4.8) 10/29/22 17:30 [place] # (Auto) 0.7 10^3/uL (0.2-0.9) 10/29/22 17:30 Eos # (Auto) 0.1 10^3/uL (0.0-0.8) 10/29/22 17:30 Baso # (Auto) 0.0 10^3/uL (0.0-0.1) 10/29/22 17:30 Nucleated RBC % (auto) 0 % 10/29/22 17:30 Nucleated RBCs # 0.0 /100WBC 10/29/22 17:30 PT 12.60 SECONDS (12.1-14.9) 10/29/22 17:30 INR 0.92 (0.8-1.2) 10/29/22 17:30 APTT 34.8 SECONDS (23.9-36.7) 10/29/22 17:30 Sodium 113 mmol/L (136-145) L* 10/29/22 17:30 Potassium 4.3 mmol/L (3.5-5.1) 10/29/22 17:30 Chloride 74 mmol/L (98-107) L 10/29/22 17:30 Carbon Dioxide 27 mmol/L (22-29) 10/29/22 17:30 Anion Gap 16.3 (5-19) 10/29/22 17:30 BUN 23 mg/dL (8-23) 10/29/22 17:30 Creatinine 0.8 mg/dL (0.5-0.9) 10/29/22 17:30 GFR Calculation Not Reportable 10/29/22 17:30 Glucose 109 mg/dL (65-115) 10/29/22 17:30 Calculated Osmolality 240 mOsm/kg (285-295) L 10/29/22 17:30 Lactic Acid (Sepsis) 1.3 mmol/L (0.5-2.2) 10/29/22 18:32 Lactate Cancelled 10/29/22 17:30 Calcium 8.3 mg/dL (8.5-10.5) L 10/29/22 17:30 Total Bilirubin 0.6 mg/dL (0.15-1.2) 10/29/22 17:30 AST 29 U/L (0-32) 10/29/22 17:30 ALT 10 U/L (0-33) 10/29/22 17:30 Alkaline Phosphatase 84 U/L (35-105) 10/29/22 17:30 Troponin T Baseline 91 ng/L (0-10) H 10/29/22 17:30 Troponin T 120 Minute 86.15 ng/L (0-10) H 10/29/22 19:23 Delta Troponin T -4.85 ABS# (0-10) L 10/29/22 19:23 C-Reactive Protein 23.8 mg/L (0.0-4.9) H 10/29/22 17:30 NT-Pro-B Natriuret Pep 71457 pg/mL (0-450) H 10/29/22 17:30 Total Protein 6.7 g/dL (6.6-8.7) 10/29/22 17:30 Albumin 3.1 g/dL (3.5-5.2) L 10/29/22 17:30 Globulin 3.6 g/dL (1.3-4.6) 10/29/22 17:30 Urine Color Yellow (Yellow) 10/29/22 20:00 Urine Appearance Clear (CLEAR) 10/29/22 20:00 Urine pH 6.5 (5-7) 10/29/22 20:00 Ur Specific [place] 1.005 (1.005-1.030) 10/29/22 20:00 Urine Protein Neg (Negative) 10/29/22 20:00 Urine Glucose (UA) Norm (Normal) 10/29/22 20:00 Urine Ketones Negative (Negative) 10/29/22 20:00 Urine Blood Neg (Negative) 10/29/22 20:00 Urine Nitrate Negative (Negative) 10/29/22 20:00 Urine Bilirubin Neg (Negative) 10/29/22 20:00 Urine Urobilinogen Norm mg/dL (Negative) 10/29/22 20:00 Ur Leukocyte Esterase Negative (Negative) 10/29/22 20:00 Discharge Plan Discharge Patient Disposition: Admitted As Inpatient Admit Provider: Viral Farrar Clinical Impression: Chronic hyponatremia, Acute exacerbation of CHF (congestive heart failure), Elevated troponin Condition: Stable Coding Level of Care Code ED Convertible Top Installer for Lawrence Begum
--- NOTE | 2022-10-29 21:18 | PM.HP ---
Providers/Chief Complaint Admitting Physician: Viral Farrar MD Primary Care Provider: Doe Bui MD Chief Complaint: abnormal Labs, High Sodium History of Present Illness Kati Chris is a 82 year old female with a past medical history of chronic low back pain, CAD, history of AR, hypertension, recent hospitalization for pneumonia, recent hospitalization for hypertensive urgency, recent hospitalization for hyponatremia, recently discharged from [facility] for hyponatremia, hypertension who presents to [facility] due to complaints of weakness, fatigue, poor appetite. Patient tells me that since leaving the hospital she continues to feel weak fatigued tired has a poor appetite, no nausea, no vomiting, she was from the outpatient clinic to [facility] due to low sodium levels. Family members are at bedside, they tell me that she just has not been eating well for the last month, she has a poor appetite, they tell me that she looks like a completely different person. She denies any headache, no blurry vision, seizure-like episodes, she feels weak all over no facial no slurring of her words, no paresthesias Review of Systems Const: Denies: fever(s) Eyes: Denies: change in vision Card: Denies: chest pain Resp: Denies: dyspnea GI: Denies: abdominal pain Medications/Allergies Home Medications Medication Instructions Recorded Confirmed Last Taken Type valsartan 160 mg tablet See Rx Instructions .Route 08/04/22 10/29/22 10/23/22 Rx .COMPLEX #180 tabs levothyroxine 88 mcg tablet 88 mcg PO DAILY #90 tabs 09/02/22 10/29/22 10/23/22 Rx isosorbide mononitrate 60 mg See Rx Instructions .Route 09/20/22 10/29/22 10/23/22 Rx tablet,extended release 24 hr .COMPLEX #90 tabs magnesium oxide 400 mg (241.3 mg See Rx Instructions .Route 09/20/22 10/29/22 10/23/22 Rx magnesium) tablet .COMPLEX #180 tabs hydrocodone 10 mg-acetaminophen 1 tab PO Q4H PRN Pain 30 days #180 09/27/22 10/29/22 Unknown Rx 325 mg tablet tabs felodipine 10 mg tablet,extended 10 mg PO DAILY 10/08/22 10/29/22 10/23/22 History release 24 hr gabapentin 100 mg capsule 100 mg PO BID 10/08/22 10/29/22 10/23/22 History tamsulosin 0.4 mg capsule 0.4 mg PO BID 10/08/22 10/29/22 10/23/22 History albuterol sulfate 90 mcg/actuation 1 inh inhalation Q6H PRN shortness 10/10/22 10/29/22 Unknown Rx aerosol inhaler of breath or wheezing #8.5 grams ondansetron HCl 4 mg tablet 4 mg PO Q6H PRN nausea and 10/14/22 10/29/22 Unknown Rx vomiting #30 tabs benzonatate 100 mg capsule 100 mg PO TID PRN Cough 10/16/22 10/29/22 Unknown History clonidine HCl 0.1 mg tablet 0.1 mg PO BID #60 tabs 10/27/22 10/29/22 Unknown Rx hydralazine 25 mg tablet 25 mg PO TID #90 tabs 10/27/22 10/29/22 Unknown Rx hydralazine 25 mg tablet 25 mg PO TID #90 tabs 10/27/22 10/29/22 Unknown Rx lactulose 10 gram/15 mL (15 mL) 10 g (15 mL) PO DAILY PRN 10/29/22 10/29/22 Unknown Rx oral solution constipation #473 mL Allergies Allergy/AdvReac Type Severity Reaction Status Date / Time prazosin Allergy Severe ALGY-Difficulty Verified 10/08/22 08:18 Breathing PFSH Acute PFSH: Medical History Aortic stenosis Cervical radiculopathy Chronic hyponatremia Chronic low back pain Has had recent back surgery Chronic respiratory failure with hypoxia Community acquired pneumonia Congestive heart failure Coronary artery disease Dehydration DNR (do not resuscitate) History of AR (myocardial infarction) 2017--had coronary artery stent placed Hypertension Chronic hypertension diagnosed at the age of 31. Follows up with cardiology Dr. Castellanos as well as her primary care provider. Hypoxia Malaise and fatigue Nausea No pertinent past medical history Denies diabetes, asthma, seizures, DVT/PE PCP: Dr. Bui Peripheral neuropathy Pneumonia Right lower lobe pneumonia Uncontrolled hypertension Vaginal prolapse 09/30/2021--grade 3-4 cystocele, grade 3 vault prolapse, grade 1 rectocele Surgical History History of back surgery March 2021--performed by Dr. Nunez at [facility] [place]. History of heart artery stent 2018 after heart attack History of tubal ligation In her mid 30s---done through supra umbilical minilaparotomy incision S/P hysterectomy Vaginal hysterectomy for prolapse performed by Dr. George in 2018. Her ovaries were not removed. Family History Mother Heart disease Hypertension Colon cancer diagnosed in her late 60s Daughter Heart disease Family/Other Breast cancer maternal aunt, age at diagnosis unknown Social History Smoking and tobacco status: never smoked Substance/Drug Use: never Vitals/I&O/Wt Last Vital Signs Temp 97.4 F L 10/29/22 15:55 Pulse 70 10/29/22 15:55 Resp 18 10/29/22 15:55 BP 174/73 10/29/22 15:55 Pulse Ox 100 10/29/22 15:55 O2 Del Method Nasal Cannula 10/29/22 15:55 O2 Flow Rate 3 10/29/22 15:55 Weight last 48 hrs Weight 58.06 kg Physical Exam Const: COMMON NORMALS: no acute distress and patient oriented x3 GENERAL APPEARANCE: cooperative, ill appearing and frail appearing HENMT: COMMON NORMALS: normocephalic HEAD & SCALP: normocephalic Eye: COMMON NORMALS: Equal, round and reactive pupils present Neck/C-Spine: COMMON NORMALS: no JVD Lymph: LYMPHATIC: no lymphadenopathy noted Resp: COMMON NORMALS: normal respiratory effort, No retractions, No use of accessory muscles and clear to auscultation bilaterally AUSCULTATION: clear to auscultation bilaterally Cardio: COMMON NORMALS: regular rate, regular rhythm, S1 normal heart sound present and S2 normal heart sound present RATE: regular rate RHYTHM: regular rhythm HEART SOUNDS: S1 normal heart sound present and S2 normal heart sound present GI: COMMON NORMALS: Normal to inspection, nondistended, normoactive bowel sounds present, Soft to palpation and non-tender PALPATION: Yes Soft to palpation and Yes No hepatosplenomegaly present Extremity: COMMON NORMALS: normal to inspection NARRATIVE EXTREMITY EXAM: 1+ pitting edema Neuro: COMMON NORMALS: patient oriented x3, CN's II-XII intact bilaterally, moves all extremities and no focal motor deficits Psych: COMMON NORMALS: mental status grossly normal Data 10/29/22 17:30 10/29/22 17:30 Other data: EKG personally reviewed by me shows left bundle branch block Chest x-ray shows cardiomegaly, has scattered airspace disease, bilateral lower lobes A&P Assessment and plan (1) Acute hyponatremia: (2) Generalized weakness: (3) Anemia: (4) Fluid overload: (5) Hypertensive urgency: Plan Acute on chronic hyponatremia -Symptomatology, weakness, fatigue -Serum sodium 113 -Spoke to nephrology -We will admit to intensive care unit -Neurochecks -Serum sodiums every 4 hours -Urine sodium, serum osmolality urine osmolality urine electrolytes -Start hypertonic saline 20 cc an hour -Monitor mentation, monitor serum sodium Anemia -Has chronic anemia -Will monitor -Iron studies, B12, folate Fluid overload -Is on oxygen in the emergency room, chest x-ray shows airspace disease I think is more fluid than infection -Has received Lasix -We will consider Lasix based on clinical progress -We will order cardiac echo -Monitor respiratory status closely Hypertensive urgency -Blood pressure is elevated emergency room continue hydralazine, clonidine Hypothyroidism, recheck TSH continue levothyroxine Weakness, fatigue, tiredness, poor appetite -CT chest abdomen pelvis Full code Lovenox for DVT prophylaxis Spoke to ER physician Spoke to nephrology Spoke to ER staff Attestations Medical Necessity Statement*: Patient requires hospitalization, inpatient, greater than 2 midnights, for acute hyponatremia, weakness, fatigue, NSTEMI, fluid overload, anemia Coding Level of Care Code Critical Care >/= 30 minutes Critical care time (in minutes): 40 Diagnoses Acute hyponatremia E87.1 Generalized weakness R53.1 Anemia D64.9 Fluid overload E87.70 Hypertensive urgency I16.0
[2022-10-29 22:20] LABS: Potassium, Radom Urine 11 mmol/L; Urine Creatinine 11 mg/dL (28-217); Urine Random Chloride 78 mmol/L; Urine Random Sodium 73 mmol/L
[2022-10-29 22:27] LABS: Erythrocyte Sedimentation Rate 25 mm/hr (0-15)
[2022-10-29 22:40] LABS: Eosinophil Urine No Eosinophils Seen; Urine Eosinophil Count 0 (0-0)
[2022-10-29 22:46] LABS: Lactic Sepsis W/Reflex 1.6 mmol/L (0.5-2.2)
[2022-10-29 22:57] LABS: Urea Nitrogen,Urine Random 85 mg/dL
[2022-10-29 22:57] LABS: Cortisol Random 14.05 ug/dL (2.47-19.5)
[2022-10-29] MEDS: pantoprazole 40 mg SDV IVP (23:00)
[2022-10-29] MEDS: albumin 25 G/100 ML BAG 60 G IV (23:00)
[2022-10-29] MEDS: cloNIDine 0.1 mg Tablet PO (23:00)
[2022-10-29] MEDS: enoxaparin 40 mg/0.4 mL Syringe SUBCUT (23:00)
[2022-10-29] MEDS: hyDRALAzine 25 mg Tablet PO (23:01)
[2022-10-29 23:49] LABS: Procalcitonin 0.14 ng/mL (0-0.5); Thyroid Stimulating Hormone 3.09 uIU/mL (0.27-4.20)
[2022-10-29 23:58] LABS: C Reactive Protein 21.5 mg/L (0.0-4.9); Chol HDL Ratio 2.81 mg/dL (0.0-4.40); Cholesterol 166 mg/dL (0-200); HDL Cholesterol 59 mg/dL (60-100); LDL Cholesterol Calculated 91 mg/dL (50-129); LDL HDL Ratio 1.54 RATIO (0.00-3.22); Triglycerides 81 mg/dL (0-150)
[2022-10-29 23:59] LABS: Sodium 112 mmol/L (136-145)
[2022-10-30] VITALS (34 sets, daily range): BP systolic 132–176; BP diastolic 44–97; PULSE 62–92; RESP 11–24; TEMP 36.6–36.9; O2SAT 93–100
[2022-10-30 00:47] LABS: Vitamin B12 745 pg/mL (232-1245)
[2022-10-30 00:58] LABS: Iron 43 ug/dL (37-145); Percent Saturation 20.4 % (20-50); Total Iron Binding Capacity 210 mcg/dl; Unsaturated Iron Binding 167 ug/dL (112-347)
[2022-10-30 00:59] LABS: Ferritin 239 ng/mL (15-150)
--- NOTE | 2022-10-30 01:17 | XRR_ITS ---
PROCEDURE INFORMATION: Exam: XR Chest Exam date and time: 10/30/2022 1:18 AM Age: 82 years old Clinical indication: Device placement; Picc; Additional info: Picc placement TECHNIQUE: Imaging protocol: Radiologic exam of the chest. Views: 1 view. COMPARISON: CT chest abdpel [id number] 10/29/2022 10:27 PM FINDINGS: Tubes, catheters and devices: New right PICC in place, tip overlies lower SVC. Lungs: [id number]-left lung base infiltrates and small effusions again seen. Pleural spaces: No pneumothorax. Heart/Mediastinum: Heart size is stable. Bones/joints: Moderate scoliosis. XR/XR chest 1V portable [id number] IMPRESSION: 1. New right PICC in place. 2. Overall, unimproved lung findings.
--- NOTE | 2022-10-30 01:26 | PC.NURSE ---
Consulted by house charge for picc placement. Consent obtained by myself an patients family. All risk an benefits discussed. Risk included dvt an infection. RUE scanned with US an basilic vein was the best option. Vein was staight, 4mm, an free of visible clot. Patient draped in usual sterile fashion. Using real time US lidocaine injected, vein accessed, an picc floated into position. Chest xray obtained an waiting on confirmation of tip placement. EBL less then 5 ml. No bleeding no hematoma. Pt am circumference is 28 cm at 10 cm above the ac fossa.
[2022-10-30] MEDS: sodium chloride 3% 500 ML 20 ML IV (01:28)
[2022-10-30] MEDS: HYDROmorphone 1 mg/mL INJ 1 mL 0.5 MG IVP ×6 (01:30→21:10)
[2022-10-30 02:18] LABS: Troponin 5 6HR 91.37 ng/L (0-10)
[2022-10-30 02:19] LABS: Troponin 5 6HR Delta 0.37 ng/L (0-12)
[2022-10-30 02:23] LABS: Sodium 115 mmol/L (136-145)
[2022-10-30 02:25] LABS: HIV 1 & 2 Antibody Non-Reactive (Non-Reactiv); HIV 1 & 2 Antigen Non-Reactive (Non-Reactiv)
[2022-10-30] MEDS: albumin 25 G/100 ML BAG 60 G IV (05:04)
[2022-10-30] MEDS: hyDRALAzine 25 mg Tablet PO ×3 (05:04→21:10)
[2022-10-30 05:44] LABS: Basophils % 0.5 %; Eosinophils # 0.3 10^3/uL (0.0-0.8); Eosinophils % 4.7 %; Hematocrit 21.3 % (37.0-47.0); Lymphocytes # 0.8 10^3/uL (0.8-4.8); Lymphocytes % 14.6 %; Mean Corpuscular HGB Conc 32.9 g/dL (30.0-36.0); Mean Corpuscular Hemoglobin 31.1 pg (28.0-34.0); Mean Corpuscular Volume 94.7 fl (81-99); Mean Platelet Volume 10.8 fL (7.4-10.4); Monocytes # 0.6 10^3/uL (0.2-0.9); Monocytes % 10.9 %; Neutrophils # 3.97 10^3/uL (1.8-7.7); Nucleated Red Blood Cells % 0 %; Platelet Count 252 10^3/cmm (130-400); Red Blood Count 2.25 10^6/uL (4.1-5.3); Red Cell Distribution Width 12.9 % (12.1-15.1); White Blood Count 5.8 10^3/uL (4.0-10.0)
[2022-10-30 06:01] LABS: Anion Gap 10.7 (5-19); Blood Urea Nitrogen 22 mg/dL (8-23); Calcium 7.8 mg/dL (8.5-10.5); Carbon Dioxide 30 mmol/L (22-29); Chloride 81 mmol/L (98-107); Glucose 94 mg/dL (65-115); Magnesium 1.7 mg/dL (1.7-2.3); Osmolality Calculated 249 mOsm/kg (285-295); Phosphorus 2.8 mg/dL (2.5-4.5); Potassium 3.7 mmol/L (3.5-5.1)
[2022-10-30 06:02] LABS: Sodium 118 mmol/L (136-145)
--- NOTE | 2022-10-30 07:40 | PM.CONSULT ---
Providers/Reason For Consult Consulting Physician/Specialty*: [facility]/Nephrology Reason for Consult*: hyponatremia Attending Physician: Jamel Grady MD Primary Care Provider: Doe Bui MD History of Present Illness History of Present Illness 82-year-old female with past medical history coronary artery disease hypertension recurrent pneumonias chronic hyponatremia presented to the ER due to weakness fatigue and decreased appetite. Patient was noted to have low sodium during last admission HCTZ was discontinued at the time. Emergency department vital signs are stable estimated blood pressure significant for severe hyponatremia with a sodium of 113. Review of Systems Narrative: other ROS NEGATIVE Medications/Allergies Home Medications Medication Instructions Recorded Confirmed Last Taken Type valsartan 160 mg tablet See Rx Instructions .Route 08/04/22 10/29/22 10/23/22 Rx .COMPLEX #180 tabs levothyroxine 88 mcg tablet 88 mcg PO DAILY #90 tabs 09/02/22 10/29/22 10/23/22 Rx isosorbide mononitrate 60 mg See Rx Instructions .Route 09/20/22 10/29/22 10/23/22 Rx tablet,extended release 24 hr .COMPLEX #90 tabs magnesium oxide 400 mg (241.3 mg See Rx Instructions .Route 09/20/22 10/29/22 10/23/22 Rx magnesium) tablet .COMPLEX #180 tabs hydrocodone 10 mg-acetaminophen 1 tab PO Q4H PRN Pain 30 days #180 09/27/22 10/29/22 Unknown Rx 325 mg tablet tabs felodipine 10 mg tablet,extended 10 mg PO DAILY 10/08/22 10/29/22 10/23/22 History release 24 hr gabapentin 100 mg capsule 100 mg PO BID 10/08/22 10/29/22 10/23/22 History tamsulosin 0.4 mg capsule 0.4 mg PO BID 10/08/22 10/29/22 10/23/22 History albuterol sulfate 90 mcg/actuation 1 inh inhalation Q6H PRN shortness 10/10/22 10/29/22 Unknown Rx aerosol inhaler of breath or wheezing #8.5 grams ondansetron HCl 4 mg tablet 4 mg PO Q6H PRN nausea and 10/14/22 10/29/22 Unknown Rx vomiting #30 tabs benzonatate 100 mg capsule 100 mg PO TID PRN Cough 10/16/22 10/29/22 Unknown History clonidine HCl 0.1 mg tablet 0.1 mg PO BID #60 tabs 10/27/22 10/29/22 Unknown Rx hydralazine 25 mg tablet 25 mg PO TID #90 tabs 10/27/22 10/29/22 Unknown Rx hydralazine 25 mg tablet 25 mg PO TID #90 tabs 10/27/22 10/29/22 Unknown Rx lactulose 10 gram/15 mL (15 mL) 10 g (15 mL) PO DAILY PRN 10/29/22 10/29/22 Unknown Rx oral solution constipation #473 mL Allergies Allergy/AdvReac Type Severity Reaction Status Date / Time prazosin Allergy Severe ALGY-Difficulty Verified 10/08/22 08:18 Breathing Current Medications Generic Name Dose Route Start Last Admin Trade Name Freq PRN Reason Stop Dose Admin Clonidine HCl 0.1 mg 10/29/22 22:00 10/29/22 23:00 Clonidine 0.1 Mg Tablet PO 0.1 mg Q12H IMMANUEL Administration Enoxaparin Sodium 40 mg 10/29/22 22:00 10/29/22 23:00 Enoxaparin 40 Mg/0.4 Ml Syringe SUBCUT 40 mg Q24H IMMANUEL Administration Hydralazine HCl 25 mg 10/29/22 22:00 10/30/22 05:04 Hydralazine 25 Mg Tablet PO 25 mg Q8H IMMANUEL Administration Hydromorphone HCl 0.5 mg 10/29/22 21:21 10/30/22 05:04 Hydromorphone 1 Mg/Ml Inj 1 Ml IVP 0.5 mg Q4H PRN Administration OPIOID WITHDRAWAL Sodium Chloride 500 mls @ 20 mls/hr 10/29/22 21:15 10/30/22 01:28 Sodium Chloride 3% IV 20 mls/hr .Q24H IMMANUEL Administration Pantoprazole Sodium 40 mg 10/29/22 21:15 10/29/22 23:00 Pantoprazole 40 Mg Sdv IVP 40 mg Q24H IMMANUEL Administration PFSH Acute PFSH: Medical History Aortic stenosis Cervical radiculopathy Chronic hyponatremia Chronic low back pain Has had recent back surgery Chronic respiratory failure with hypoxia Community acquired pneumonia Congestive heart failure Coronary artery disease Dehydration DNR (do not resuscitate) History of MD (myocardial infarction) 2018--had coronary artery stent placed Hypertension Chronic hypertension diagnosed at the age of 31. Follows up with cardiology Dr. Castellanos as well as her primary care provider. Hypoxia Malaise and fatigue Nausea No pertinent past medical history Denies diabetes, asthma, seizures, DVT/PE PCP: Dr. Bui Peripheral neuropathy Pneumonia Right lower lobe pneumonia Uncontrolled hypertension Vaginal prolapse 09/30/2021--grade 3-4 cystocele, grade 3 vault prolapse, grade 1 rectocele Surgical History History of back surgery March 2021--performed by Dr. Nunez at [facility] [place]. History of heart artery stent 2018 after heart attack History of tubal ligation In her mid 30s---done through supra umbilical minilaparotomy incision S/P hysterectomy Vaginal hysterectomy for prolapse performed by Dr. George in 2018. Her ovaries were not removed. Family History Mother Heart disease Hypertension Colon cancer diagnosed in her late 60s Daughter Heart disease Family/Other Breast cancer maternal aunt, age at diagnosis unknown Social History Smoking and tobacco status: never smoked Substance/Drug Use: never Vitals/I&O/Wt Last Vital Signs Temp 97.4 F L 10/29/22 21:25 Pulse 69 10/30/22 05:58 Resp 21 H 10/30/22 05:04 BP 134/57 10/30/22 04:00 Pulse Ox 95 10/30/22 05:04 O2 Del Method Nasal Cannula 10/30/22 00:40 O2 Flow Rate 2 10/30/22 00:40 10/29/22 10/30/22 10/30/22 22:59 06:59 14:59 Intake Total 110 / 110 310 / 420 Output Total 200 / 200 900 / 1100 Balance -90 / -90 -590 / -680 Weight last 48 hrs Weight 62.46 kg Weight 58.06 kg Physical Exam Narrative: Patient is awake alert, no acute distress HEENT, PERRLA S1-S2 regular rate and rhythm per report Decreased breath sounds at base No pedal edema. Urinary Catheter Management: Lim: Cath Placed During This Visit: yes Reason for Continuing Indwelling Catheter: Accurate Measurement of Urinary Output in Critically Ill Patients Urinary Catheter Date of Insertion: 10/29/22 Urinary Catheter Time of Insertion: 22:00 Data 10/30/22 05:12 10/30/22 05:12 Micro: Microbiology 10/29/22 22:00 Blood Culture - Preliminary Blood SPECIMEN COLLECTED 10/29/22 21:49 Blood Culture - Preliminary Blood SPECIMEN COLLECTED A&P Assessment and plan (1) Acute hyponatremia: Plan 1. Acute on chronic hyponatremia: Baseline sodiums in the high 120s to low 130s range. Likely from hypervolemia, HCTZ use question SIADH. Await urine studies including urine sodium and urine osmolality. Check TSH and cortisol levels -Continue 3% saline at 20 cc/h until the sodium is in the mid 120s. BMP every 4 hours -Goal correction up to 8 mmol/L per 24 hours -Once sodium in the mid 120s, will add fluid restriction and start Lasix 2. Hypertension: Blood pressure elevated in the ER, restart home meds 3. Anemia hemoglobin 7.0, further work-up in progress Patient evaluated using audiovisual cart. Time spent 35 minutes Consult Attestations Medical Necessity Statement: per medicine Coding Level of Care Code Acute Code for Chg Fwd Diagnoses Acute hyponatremia E87.1
--- NOTE | 2022-10-30 08:03 | PM.PN ---
Subjective Subjective: seen at bedside today. alert and oriented complaining of constipation x 1 week. able to pass gas no abd pain, CP, SOB, palpitations. unsure as to why she continues to be hospitalized. denies GANDHI, blurry vision, Vitals/I&O/Wt Last Vital Signs Temp 97.4 F L 10/29/22 21:25 Pulse 69 10/30/22 05:58 Resp 21 H 10/30/22 05:04 BP 134/57 10/30/22 04:00 Pulse Ox 95 10/30/22 05:04 O2 Del Method Nasal Cannula 10/30/22 00:40 O2 Flow Rate 2 10/30/22 00:40 10/29/22 10/30/22 10/30/22 22:59 06:59 14:59 Intake Total 110 / 110 310 / 420 Output Total 200 / 200 900 / 1100 Balance -90 / -90 -590 / -680 Weight last 48 hrs Weight 137 lb 11.2 oz Weight 128 lb Physical Exam Const: COMMON NORMALS: no acute distress and patient oriented x3 GENERAL APPEARANCE: cooperative, ill appearing and frail appearing HENMT: COMMON NORMALS: normocephalic HEAD & SCALP: normocephalic Eye: COMMON NORMALS: Equal, round and reactive pupils present PUPIL: Yes Equal, round and reactive pupils present Neck/C-Spine: COMMON NORMALS: no JVD Lymph: LYMPHATIC: no lymphadenopathy noted Resp: COMMON NORMALS: normal respiratory effort, No retractions, No use of accessory muscles and clear to auscultation bilaterally AUSCULTATION: clear to auscultation bilaterally Cardio: COMMON NORMALS: no JVD, regular rate, regular rhythm, S1 normal heart sound present and S2 normal heart sound present RATE: regular rate RHYTHM: regular rhythm HEART SOUNDS: S1 normal heart sound present and S2 normal heart sound present GI: COMMON NORMALS: Normal to inspection, nondistended, normoactive bowel sounds present, Soft to palpation, non-tender and No hepatosplenomegaly present PALPATION: Yes Soft to palpation and Yes No hepatosplenomegaly present Extremity: COMMON NORMALS: normal to inspection NARRATIVE EXTREMITY EXAM: 1+ pitting edema Neuro: COMMON NORMALS: patient oriented x3, CN's II-XII intact bilaterally, moves all extremities and no focal motor deficits Psych: COMMON NORMALS: mental status grossly normal Urinary Catheter Management: Lim: Cath Placed During This Visit: yes Reason for Continuing Indwelling Catheter: Accurate Measurement of Urinary Output in Critically Ill Patients Urinary Catheter Date of Insertion: 10/29/22 Urinary Catheter Time of Insertion: 22:00 Data 10/30/22 16:47 10/30/22 16:47 Micro: Microbiology 10/29/22 22:00 Blood Culture - Preliminary Blood SPECIMEN COLLECTED 10/29/22 21:49 Blood Culture - Preliminary Blood SPECIMEN COLLECTED A&P Assessment and plan (1) Acute hyponatremia: (2) Generalized weakness: (3) Anemia: (4) Fluid overload: (5) Hypertensive urgency: Plan Acute on chronic hyponatremia: -Baseline sodiums in the high 120s to low 130s range.? Likely from hypervolemia, HCTZ, SIADH?.? -Symptomatology, weakness, fatigue -Serum sodium on admission 113 -nephrology consulted. likley 2/2 hypervolemia, HCTZ. -Urine studies (Yoli and Uosm), TSH, cortisol levels all WNL -continue 3% saline at 20cc/hr until Na in the mid 120's. BMP q4hrs -goal correction is up to 8mmol/L per 24hrs. -If Na goes above 121, STOP 3% saline. repeat in 4hrs and call senior engineering team leader with result. if elevated will need to give dextrose to bring Na downwards. -Per nephro once in mid 120's will add fluid restriction and start lasix Monitor mentation, monitor serum sodium Hypertension: -continue home medications Anemia -Hx chronic anemia -will consider transfuse of 1u pRBC 2/2 hgb dropping from 9.1 to 7.0 -concern for volume overload thus will get repeat h/h this PM to confirm if need of transfusion -Will monitor -Iron studies, B12, folate WNL Fluid overload -has received IV lasix -will hold on further lasix per nephro request for Na to reach mid 120's -We will consider Lasix based on clinical progress -pending ECHO -monitor resp status Hypertension -restarted home medications -will monitor -can continue hydralazine and clonidine Hypothyroidism -continue levothyroxine Weakness, fatigue, tiredness, poor appetite -CT abd/pelvis showed constipation, severe atherosclerosis of abdominal aorta. mild ascities in pelvis w/o loculation of fluid Full code Lovenox for DVT prophylaxis Attestations Medical Necessity Statement*: ICU for hyponatremia management Coding Level of Care Code 35559 Diagnoses Acute hyponatremia E87.1 Generalized weakness R53.1 Anemia D64.9 Fluid overload E87.70 Hypertensive urgency I16.0
[2022-10-30] MEDS: isosorbide mononitrate ER 60 mg Tablet PO (08:17)
[2022-10-30] MEDS: bisacodyl 10 mg Supp PR (08:52)
[2022-10-30] MEDS: cloNIDine 0.1 mg Tablet PO ×2 (09:30→21:10)
[2022-10-30 10:38] LABS: Sodium 118 mmol/L (136-145)
[2022-10-30 14:03] LABS: Sodium 121 mmol/L (136-145)
[2022-10-30 17:13] LABS: Basophils % 0.5 %; Eosinophils # 0.1 10^3/uL (0.0-0.8); Eosinophils % 1.6 %; Hematocrit 24.1 % (37.0-47.0); Hemoglobin 7.9 g/dL (11.5-15.3); Lymphocytes # 0.8 10^3/uL (0.8-4.8); Mean Corpuscular HGB Conc 32.8 g/dL (30.0-36.0); Mean Corpuscular Hemoglobin 31.3 pg (28.0-34.0); Mean Corpuscular Volume 95.6 fl (81-99); Mean Platelet Volume 10.8 fL (7.4-10.4); Monocytes # 0.8 10^3/uL (0.2-0.9); Monocytes % 9.2 %; Neutrophils # 6.78 10^3/uL (1.8-7.7); Neutrophils % 79.2 %; Nucleated Red Blood Cells % 0 %; Platelet Count 303 10^3/cmm (130-400); Red Blood Count 2.52 10^6/uL (4.1-5.3); Red Cell Distribution Width 13.4 % (12.1-15.1); White Blood Count 8.6 10^3/uL (4.0-10.0)
[2022-10-30 17:37] LABS: Sodium 122 mmol/L (136-145)
[2022-10-30 21:04] LABS: Glucose Point of Care 122 mg/dL (70-110)
[2022-10-30] MEDS: pantoprazole 40 mg SDV IVP (21:09)
--- NOTE | 2022-10-30 21:29 | USCV_ITS ---
Kati Chris Age: 82 Gender: F : 1940 Exam Date: 10/30/2022 10:47 Ordering Phys: Viral Farrar MD Technologist: SANDRA [place] [facility] [place]ication: sob BP: / HR: 67 Rhythm: Sinus Technical Quality: Suboptimal MEASUREMENTS (Male / Female) Normal Values 2D ECHO LV Diastolic Diameter PLAX 4.7 cm 4.2 - 5.9 / 3.9 - 5.3 cm LV Systolic Diameter PLAX 3.4 cm IVS Diastolic Thickness 0.8 cm 0.6 - 1.0 / 0.6 - 0.9 cm IVS Systolic Thickness 1.4 cm LVPW Diastolic Thickness 0.9 cm 0.6 - 1.0 / 0.6 - 0.9 cm LVPW Systolic Thickness 1.3 cm LVOT Diameter 1.9 cm LV Ejection Fraction 2D Teich 53.1 % LV Ejection Fraction MOD 2C 45.9 % LV Ejection Fraction 2C AL 47.3 % LA Diameter 3.5 cm IVC Diameter 2.2 cm M-MODE Aortic Annulus Diameter 2.3 cm LA Ao Ratio MM 1.8 MV E Point Septal Separation 1.2 cm DOPPLER AV Peak Velocity 184.0 cm/s LVOT Peak Velocity 138.0 cm/s AV Area Cont Eq vti 2.6 cm squared AV Area Cont Eq pk 2.2 cm squared MV Area PHT 4.2 cm squared Mitral E to A Ratio 0.9 MV E' Velocity 58.0 cm/s Mitral E to MV E' Ratio 23.5 Mitral E to LV E' Lateral Ratio 20.1 Mitral E to LV E' Septal Ratio 28.4 TV Peak E Velocity 53.0 cm/s PV Peak Velocity 125.0 cm/s FINDINGS Left Ventricle The ventricle is normal in size. There are no wall motion disturbances. Ventricular function is lower limit of normal with an ejection fraction of about 50%. Septal dyssynergy related to the left bundle branch block. The rhythm is sinus with frequent PVCs and a left bundle branch block which decreases the sensitivity of the exam. Grade 2 diastolic dysfunction. Right Ventricle Normal right ventricular size and systolic function. Right Atrium The right atrium is normal in size. Left Atrium The left atrium is normal in size. Mitral Valve Structurally normal mitral valve. Mild-moderate mitral valve regurgitation. Aortic Valve Structurally normal aortic valve without significant sclerosis or stenosis. There is no aortic regurgitation. Tricuspid Valve Structurally normal tricuspid valve. Trace tricuspid valve regurgitation. Pulmonic Valve Pulmonic valve not well visualized. Pericardium Normal pericardium without effusion. Aorta Normal ascending aorta dimension. IVC The inferior vena cava is mildly dilated. It does not collapse quite normally with respiration. Right atrial pressure 5 to 10 mmHg. CONCLUSIONS The ventricle is normal in size. There are no wall motion disturbances. Ventricular function is lower limit of normal with an ejection fraction of about 50%. Septal dyssynergy related to the left bundle branch block. The rhythm is sinus with frequent PVCs and a left bundle branch block which decreases the sensitivity of the exam. Grade 2 diastolic dysfunction. Structurally normal mitral valve. Mild-moderate mitral valve regurgitation. The inferior vena cava is mildly dilated. It does not collapse quite normally with respiration. Right atrial pressure 5 to 10 mmHg. Since the last study of 01/09/2022 the left ventricular function may be slightly better, however, the technical capabilities make comparison difficult. Dr. Tone Ludwig MD (Electronically Signed) Final Date: 30 Oct 2022 15:57 S
[2022-10-30 21:41] LABS: Sodium 121 mmol/L (136-145)
[2022-10-31] VITALS (36 sets, daily range): BP systolic 123–188; BP diastolic 46–130; PULSE 51–91; RESP 13–29; TEMP 36.6–37.3; O2SAT 95–100
[2022-10-31] MEDS: HYDROmorphone 1 mg/mL INJ 1 mL 0.5 MG IVP ×6 (01:07→22:38)
[2022-10-31 02:23] LABS: Sodium 118 mmol/L (136-145)
[2022-10-31] MEDS: hyDRALAzine 25 mg Tablet PO ×3 (04:58→21:19)
[2022-10-31 05:34] LABS: Basophils % 0.6 %; Eosinophils # 0.2 10^3/uL (0.0-0.8); Eosinophils % 3.5 %; Hematocrit 21.7 % (37.0-47.0); Hemoglobin 7.2 g/dL (11.5-15.3); Lymphocytes # 0.9 10^3/uL (0.8-4.8); Lymphocytes % 13.5 %; Mean Corpuscular HGB Conc 33.2 g/dL (30.0-36.0); Mean Corpuscular Volume 96.4 fl (81-99); Mean Platelet Volume 10.8 fL (7.4-10.4); Monocytes # 0.8 10^3/uL (0.2-0.9); Monocytes % 11.8 %; Neutrophils # 4.59 10^3/uL (1.8-7.7); Neutrophils % 70.1 %; Nucleated Red Blood Cells % 0 %; Platelet Count 236 10^3/cmm (130-400); Red Blood Count 2.25 10^6/uL (4.1-5.3); Red Cell Distribution Width 13.6 % (12.1-15.1); White Blood Count 6.5 10^3/uL (4.0-10.0)
[2022-10-31 06:04] LABS: Sodium 119 mmol/L (136-145)
[2022-10-31 07:56] LABS: Folate Level 5.6 ng/mL (4.8-37.3)
[2022-10-31] MEDS: isosorbide mononitrate ER 60 mg Tablet PO (09:00)
[2022-10-31] MEDS: cloNIDine 0.1 mg Tablet PO ×2 (09:06→21:19)
--- NOTE | 2022-10-31 09:50 | P.PN_ITS ---
Subjective Subjective: No new complaints 3% Saline off since yesterday Medications: Reviewed: Yes Vitals/I&O/Wt Last Vital Signs Temp 97.8 F 10/31/22 09:00 Pulse 77 10/31/22 09:00 Resp 18 10/31/22 09:04 BP 164/66 10/31/22 09:06 Pulse Ox 97 10/31/22 09:00 O2 Del Method Nasal Cannula 10/31/22 09:00 O2 Flow Rate 2 10/31/22 09:00 10/30/22 10/31/22 10/31/22 22:59 06:59 14:59 Intake Total 240 / 740.667 240 / 980.667 Output Total 1600 / 1600 250 / 1850 Balance -1360 / -859.333 -10 / -869.333 Weight last 48 hrs Weight 62.46 kg Weight 58.06 kg Physical Exam Narrative: Patient is awake alert, no acute distress HEENT, PERRLA S1-S2 regular rate and rhythm per report Decreased breath sounds at base No pedal edema. Urinary Catheter Management: Lim: Cath Placed During This Visit: yes Reason for Continuing Indwelling Catheter: Accurate Measurement of Urinary Output in Critically Ill Patients Urinary Catheter Date of Insertion: 10/29/22 Urinary Catheter Time of Insertion: 22:00 Data 10/31/22 04:58 10/31/22 04:58 Micro: Microbiology 10/29/22 22:00 Blood Culture - Preliminary Blood NEGATIVE TO DATE 10/29/22 21:49 Blood Culture - Preliminary Blood NEGATIVE TO DATE A&P Assessment and plan (1) Acute hyponatremia: Plan 1. Acute on chronic hyponatremia: Baseline sodiums in the high 120s to low 130s range. Likely from hypervolemia, HCTZ use question SIADH. -s/p 3% saline , -Goal correction up to 8 mmol/L per 24 hours - l added fluid restriction 1200 ml/day ,and started Lasix 2. Hypertension: Blood pressure elevated in the ER, restart home meds 3. Anemia hemoglobin 7.0, further work-up in progress Patient evaluated using audiovisual cart. Time spent 35 minutes Attestations Medical Necessity Statement*: per medicine Coding Level of Care Code Acute Code for [facility] Diagnoses Acute hyponatremia E87.1
[2022-10-31 10:36] LABS: Sodium 119 mmol/L (136-145)
[2022-10-31] MEDS: FUROsemide 10 mg/mL SDV 4mL 40 MG IVP (11:15)
[2022-10-31 11:32] LABS: Sodium 121 mmol/L (136-145)
--- NOTE | 2022-10-31 13:34 | P.PN_ITS ---
Subjective Subjective: Patient was seen in the ICU Patient was told about her sodium and how we can manage her today Low hemoglobin noted We will give her 1 unit PRBC Requested occult blood hold DVT prophylactic Lovenox Patient is endorsing generalized weakness and fatigue She is agreeable to go to SNF this time manager pharmaceutical notified Vitals/I&O/Wt Last Vital Signs Temp 97.8 F 10/31/22 09:00 Pulse 72 10/31/22 12:00 Resp 18 10/31/22 12:00 BP 188/77 10/31/22 12:00 Pulse Ox 99 10/31/22 12:00 O2 Del Method Nasal Cannula 10/31/22 09:00 O2 Flow Rate 2 10/31/22 09:00 10/30/22 10/31/22 10/31/22 22:59 06:59 14:59 Intake Total 240 / 740.667 240 / 980.667 360 / 360 Output Total 1600 / 1600 250 / 1850 Balance -1360 / -859.333 -10 / -869.333 360 / 360 Weight last 48 hrs Weight 62.46 kg Weight 58.06 kg Physical Exam Narrative: Patient fatigue lethargic Currently on 2 L nasal cannula S1, S2 variable Abdomen soft Lower extremity edema has improved is at the bedside Frail female appears stated age Urinary Catheter Management: Lim: Cath Placed During This Visit: yes Reason for Continuing Indwelling Catheter: Accurate Measurement of Urinary Output in Critically Ill Patients Urinary Catheter Date of Insertion: 10/29/22 Urinary Catheter Time of Insertion: 22:00 Data 10/31/22 04:58 10/31/22 10:55 Micro: Microbiology 10/29/22 22:00 Blood Culture - Preliminary Blood NEGATIVE TO DATE 10/29/22 21:49 Blood Culture - Preliminary Blood NEGATIVE TO DATE A&P Assessment and plan (1) Fluid overload: (2) Hypertensive urgency: (3) Acute hyponatremia: (4) Chronic hyponatremia: (5) Acute exacerbation of CHF (congestive heart failure): (6) Generalized weakness: (7) Anemia: (8) Hypo-osmolar hyponatremia: Plan Hypervolemic hypoosmolar hyponatremia 3% saline to be discontinued once sodium of 120 then we will give her Lasix Another sodium check around 3 PM Requesting PT Patient agreeable for rehab is at the bedside Diastolic CHF mild exacerbation continue Lasix Constipation: Continue lactulose Patient recently got treated for pneumonia: Currently requiring 2 L, since her pneumonia she has been requiring 2 L of oxygen She was recent discharge from the hospital when she refused fci placement Hypertensive urgency adjust antihypertensive regimen She has been taking clonidine as well, Full code Fluid striction 59 mL Spoke with traffic sign erection supervisor , Spoke with family caseworker as well Serum osmolality 255 urine osmolality 288 urine sodium 73 consistent with hypervolemic hyponatremia Attestations Medical Necessity Statement*: Can be transferred out of ICU once sodium is above 120 and we do not need hypertonic saline Diagnoses Fluid overload E87.70 Hypertensive urgency I16.0 Acute hyponatremia E87.1 Chronic hyponatremia E87.1 Acute exacerbation of CHF (congestive heart failure) I50.9 Generalized weakness R53.1 Anemia D64.9 Hypo-osmolar hyponatremia E87.1
[2022-10-31 15:46] LABS: Sodium 123 mmol/L (136-145)
[2022-10-31] MEDS: sodium chloride 0.9% 100 mL Bag 50 ML IV (17:55)
[2022-10-31] MEDS: losartan 50 mg Tablet PO (18:38)
[2022-10-31] MEDS: pantoprazole 40 mg SDV IVP (21:19)
[2022-11-01] VITALS (30 sets, daily range): BP systolic 139–196; BP diastolic 53–128; PULSE 52–100; RESP 15–23; TEMP 36.8; O2SAT 87–100
[2022-11-01] MEDS: HYDROmorphone 1 mg/mL INJ 1 mL 0.5 MG IVP ×5 (02:40→21:45)
[2022-11-01 03:07] LABS: Basophils # 0.1 10^3/uL (0.0-0.1); Basophils % 0.7 %; Eosinophils # 0.3 10^3/uL (0.0-0.8); Eosinophils % 3.5 %; Hemoglobin 8.6 g/dL (11.5-15.3); Lymphocytes % 12.9 %; Mean Corpuscular HGB Conc 31.9 g/dL (30.0-36.0); Mean Corpuscular Hemoglobin 30.4 pg (28.0-34.0); Mean Corpuscular Volume 95.4 fl (81-99); Mean Platelet Volume 10.9 fL (7.4-10.4); Monocytes # 0.7 10^3/uL (0.2-0.9); Monocytes % 9.7 %; Neutrophils # 5.57 10^3/uL (1.8-7.7); Neutrophils % 72.7 %; Nucleated Red Blood Cells % 0 %; Platelet Count 259 10^3/cmm (130-400); Red Blood Count 2.83 10^6/uL (4.1-5.3); Red Cell Distribution Width 14.7 % (12.1-15.1); White Blood Count 7.7 10^3/uL (4.0-10.0)
[2022-11-01 03:22] LABS: Anion Gap 11.8 (5-19); Blood Urea Nitrogen 18 mg/dL (8-23); Calcium 7.7 mg/dL (8.5-10.5); Carbon Dioxide 30 mmol/L (22-29); Chloride 85 mmol/L (98-107); Glucose 97 mg/dL (65-115); Osmolality Calculated 258 mOsm/kg (285-295); Potassium 3.8 mmol/L (3.5-5.1); Sodium 123 mmol/L (136-145)
[2022-11-01] MEDS: hyDRALAzine 25 mg Tablet PO ×3 (05:03→21:38)
[2022-11-01] MEDS: losartan 50 mg Tablet PO ×2 (08:05→17:39)
[2022-11-01] MEDS: isosorbide mononitrate ER 60 mg Tablet PO (08:05)
[2022-11-01] MEDS: levothyroxine 88 mcg Tablet PO (08:05)
[2022-11-01] MEDS: oxyCODONE 5 mg IR Tab/Cap PO ×2 (08:05→15:48)
[2022-11-01] MEDS: FUROsemide 40 mg Tablet PO ×2 (08:05→15:49)
[2022-11-01] MEDS: cloNIDine 0.1 mg Tablet PO ×2 (09:32→21:37)
--- NOTE | 2022-11-01 10:13 | FL_ITS ---
WS: [id number] MODIFIED BARIUM SWALLOW HISTORY: Oropharyngeal dysphagia FLUOROSCOPY TIME: 1min [id number] # of spot films: 254 Modified barium swallow was performed by the speech pathologist. Fluoroscopy was provided with the pa tient in a lateral projection. Multiple food consistencies were provided. Patient swallowed consistencies without difficulty. There were several episodes of aspiration and lar yngeal penetration with the thinner liquids. Study was terminated early. Patient did have a spontaneo us cough after the aspiration episode. FL/FL barium swallow modifd [id number] IMPRESSION: Several episodes of aspiration resulting in spontaneous coughing with the thinn er liquids. Study terminated early. Please see speech therapist report also for recommendations.
--- NOTE | 2022-11-01 11:17 | PC.SOCIAL ---
Pg 2 IMM Explained to pt & spouse Pg 2 IMM. No questions voiced. Provided pt a copy. Initialed, dated, & timed a copy & placed in chart.
--- NOTE | 2022-11-01 11:42 | PM.PN ---
Subjective Subjective: Sodium 123 Patient can be transferred out of ICU Patient is stating that she is not getting good care in the hospital with need for the nurse to give her opioids She is also not happy with the food stating that it gets stuck in her throat I requested a modified barium swallow Endorsing feeling weak and lethargic and stating that she is not getting better Vitals/I&O/Wt Last Vital Signs Temp 98.2 F 11/01/22 04:00 Pulse 94 11/01/22 08:00 Resp 17 11/01/22 08:05 BP 178/63 11/01/22 09:32 Pulse Ox 99 11/01/22 08:05 O2 Del Method Nasal Cannula 11/01/22 04:00 O2 Flow Rate 2 11/01/22 04:00 10/31/22 11/01/22 11/01/22 22:59 06:59 14:59 Intake Total 350 / 990 640 / 1630 300 / 300 Output Total 1650 / 1650 300 / 1950 Balance -1300 / -660 340 / -320 300 / 300 Physical Exam Narrative: Patient is laying comfortably in her bed Currently on 2 L nasal cannula No active shortness of breath or chest pain S1, S2 Lower extremity swelling improved GCS 15 Nonfocal neuro exam Urinary Catheter Management: Lim: Cath Placed During This Visit: yes Reason for Continuing Indwelling Catheter: Accurate Measurement of Urinary Output in Critically Ill Patients Urinary Catheter Date of Insertion: 10/29/22 Urinary Catheter Time of Insertion: 22:00 Data 11/01/22 02:27 11/01/22 02:27 A&P Assessment and plan (1) Hypo-osmolar hyponatremia: (2) Hypertensive urgency: (3) Fluid overload: (4) Chronic hyponatremia: (5) Acute exacerbation of CHF (congestive heart failure): (6) Generalized weakness: (7) Anemia: (8) Degenerative scoliosis: (9) Lumbar stenosis with neurogenic claudication: Plan Hypoosmolar-hyponatremia with hypervolemia sodium 123 We will need skilled nursing placement Continue Lasix Hypertensive urgency: Optimize antihypertensive regimen Constipation: Lactulose on board Acute normocytic anemia: Awaiting occult stool test Hypokalemia: Repleted Hypervolemic state: Improved Back pain, scoliosis, continue opioids Dysphagia, most likely anxiety related, will request modified barium swallow Full code Mechanical soft diet Transfer out of ICU Attestations Medical Necessity Statement*: Awaiting placement Diagnoses Hypo-osmolar hyponatremia E87.1 Hypertensive urgency I16.0 Fluid overload E87.70 Chronic hyponatremia E87.1 Acute exacerbation of CHF (congestive heart failure) I50.9 Generalized weakness R53.1 Anemia D64.9 Degenerative scoliosis M41.80 Lumbar stenosis with neurogenic claudication M48.062
[2022-11-01 15:19] LABS: Osmolality Urine 208 mOsm/kg (50-1200)
[2022-11-01 15:19] LABS: Osmolality Serum 244 mOsm/kg (278-305)
[2022-11-01 17:34] LABS: Blood Urea Nitrogen 18 mg/dL (8-23); Calcium 8.2 mg/dL (8.5-10.5); Carbon Dioxide 30 mmol/L (22-29); Chloride 83 mmol/L (98-107); Glucose 108 mg/dL (65-115); Osmolality Calculated 258 mOsm/kg (285-295); Sodium 123 mmol/L (136-145)
[2022-11-01 17:36] LABS: Anion Gap 13.9 (5-19); Potassium 3.9 mmol/L (3.5-5.1)
--- NOTE | 2022-11-01 18:10 | ECG_ITS ---
[facility] Test Date: 2022-11-01 Pat Name: Kati Chris Department: Room: ICU02 Gender: Female Lobby Attendant: : 1940 Requested By: Mildred Adkins Order Number: [id number] Betty MD: Edson Ahumada M.D. Measurements Intervals Runnells Rate: 86 P: 147 FL: 154 QRS: -17 QRSD: 166 T: 152 QT: 408 QTc: 489 Interpretive Statements ECTOPIC ATRIAL RHYTHM WITH OCCASIONAL SUPRAVENTRICULAR PREMATURE COMPLEXES POSSIBLE LEFT ATRIAL ENLARGEMENT [-0.1mV P-WAVE IN V1/V2] POSSIBLE RIGHT VENTRICULAR CONDUCTION DELAY [RSR (QR) IN V1/V2] LEFT BUNDLE BRANCH BLOCK [120+ ms QRS DURATION, 80+ ms Q/S IN V1/V2, 85+ ms R IN I/aVL/V5/V6] Compared to ECG 10/29/2022 17:24:26 Ectopic atrial rhythm now present Sinus rhythm no longer present Left-axis deviation no longer present Electronically Signed On 11-02-2022 11:54:57 CDT by Edson Ahumada M.D. [email or web address]
[2022-11-01] MEDS: pantoprazole 40 mg SDV IVP (20:09)
--- NOTE | 2022-11-01 20:33 | P.PN_ITS ---
Subjective Subjective: no complaints Medications: Reviewed: Yes Vitals/I&O/Wt Last Vital Signs Temp 98.2 F 11/01/22 04:00 Pulse 70 11/01/22 11:00 Resp 18 11/01/22 17:45 BP 196/78 11/01/22 17:39 Pulse Ox 92 11/01/22 17:45 O2 Del Method Room Air 11/01/22 17:09 O2 Flow Rate 2 11/01/22 04:00 11/01/22 11/01/22 11/01/22 06:59 14:59 22:59 Intake Total 640 / 1630 300 / 300 Output Total 300 / 1950 1999 Balance 340 / -320 300 / 300 -2000 / -1700 Physical Exam Narrative: Patient is awake alert, no acute distress HEENT, PERRLA S1-S2 regular rate and rhythm per report Decreased breath sounds at base No pedal edema. Urinary Catheter Management: Lim: Cath Placed During This Visit: yes Reason for Continuing Indwelling Catheter: Accurate Measurement of Urinary Output in Critically Ill Patients Urinary Catheter Date of Insertion: 10/29/22 Urinary Catheter Time of Insertion: 22:00 Data 11/01/22 02:27 11/01/22 16:55 A&P Assessment and plan (1) Acute hyponatremia: Plan 1. Acute on chronic hyponatremia: Baseline sodiums in the high 120s to low 130s range. Likely from hypervolemia, HCTZ use question SIADH. -s/p 3% saline , -Goal correction up to 8 mmol/L per 24 hours - added fluid restriction 1200 ml/day ,and started Lasix, Na 123 today , monitor 2. Hypertension: Blood pressure elevated in the ER, restart home meds 3. Anemia hemoglobin 8.6 , further work-up in progress Patient evaluated using audiovisual cart. Time spent 35 minutes Attestations Medical Necessity Statement*: per medicine Coding Level of Care Code Acute Code for [facility] Fwd Diagnoses Acute hyponatremia E87.1
[2022-11-02] VITALS (22 sets, daily range): BP systolic 157–187; BP diastolic 51–120; PULSE 57–85; RESP 13–20; TEMP 36.8–36.9; O2SAT 91–99; BMI 27.8
[2022-11-02] MEDS: HYDROmorphone 1 mg/mL INJ 1 mL 0.5 MG IVP (01:59)
[2022-11-02 03:12] LABS: Basophils # 0.1 10^3/uL (0.0-0.1); Basophils % 0.6 %; Eosinophils # 0.4 10^3/uL (0.0-0.8); Eosinophils % 3.9 %; Hematocrit 27.7 % (37.0-47.0); Hemoglobin 9.2 g/dL (11.5-15.3); Lymphocytes # 0.9 10^3/uL (0.8-4.8); Lymphocytes % 10.2 %; Mean Corpuscular HGB Conc 33.2 g/dL (30.0-36.0); Mean Corpuscular Hemoglobin 30.8 pg (28.0-34.0); Mean Corpuscular Volume 92.6 fl (81-99); Mean Platelet Volume 10.8 fL (7.4-10.4); Monocytes % 10.8 %; Neutrophils % 73.8 %; Nucleated Red Blood Cells % 0 %; Platelet Count 251 10^3/cmm (130-400); Red Blood Count 2.99 10^6/uL (4.1-5.3); White Blood Count 8.9 10^3/uL (4.0-10.0)
[2022-11-02 03:37] LABS: Blood Urea Nitrogen 19 mg/dL (8-23); Calcium 7.9 mg/dL (8.5-10.5); Carbon Dioxide 34 mmol/L (22-29); Chloride 86 mmol/L (98-107); Glucose 104 mg/dL (65-115); Osmolality Calculated 267 mOsm/kg (285-295); Sodium 127 mmol/L (136-145)
[2022-11-02] MEDS: oxyCODONE 5 mg IR Tab/Cap PO ×3 (05:11→17:51)
[2022-11-02] MEDS: hyDRALAzine 25 mg Tablet PO (05:12)
[2022-11-02] MEDS: FUROsemide 40 mg Tablet PO (08:17)
[2022-11-02] MEDS: isosorbide mononitrate ER 60 mg Tablet PO (08:18)
[2022-11-02] MEDS: levothyroxine 88 mcg Tablet PO (08:18)
[2022-11-02] MEDS: losartan 50 mg Tablet PO ×2 (08:18→17:15)
--- NOTE | 2022-11-02 08:27 | PM.PN ---
Subjective Subjective: Patient is stating that she is feeling better today She is on room air Saturating 96% Hemodynamically stable Hypertension noted increase hydralazine dose to 50 mg 3 times daily Sodium 127 Adequate diuresis Vitals/I&O/Wt Last Vital Signs Temp 98.2 F 11/02/22 04:00 Pulse 59 L 11/02/22 06:23 Resp 13 11/02/22 06:00 BP 157/87 11/02/22 08:18 Pulse Ox 98 11/02/22 06:00 O2 Del Method Nasal Cannula 11/02/22 05:00 O2 Flow Rate 2 11/02/22 05:00 11/01/22 11/02/22 11/02/22 22:59 06:59 14:59 Intake Total 500 / 800 200 / 1000 Output Total 2850 / 2850 300 / 3150 Balance -2350 / -2050 -100 / -2150 Weight last 48 hrs Weight 66.678 kg Physical Exam Narrative: Patient is awake and alert Nonfocal neuro exam Mood and energy much better as compared to yesterday Currently on room air Hemodynamically stable Dilute urine in the bag Abdomen soft Lower extremity edema resolved S1, S2 variable Urinary Catheter Management: Lim: Cath Placed During This Visit: yes Reason for Continuing Indwelling Catheter: Accurate Measurement of Urinary Output in Critically Ill Patients Urinary Catheter Date of Insertion: 10/29/22 Urinary Catheter Time of Insertion: 22:00 Data 11/02/22 02:42 11/02/22 02:42 A&P Assessment and plan (1) Hypo-osmolar hyponatremia: (2) Hypertensive urgency: (3) Fluid overload: (4) Acute hyponatremia: (5) Chronic hyponatremia: (6) Acute exacerbation of CHF (congestive heart failure): (7) Generalized weakness: (8) Anemia: (9) Degenerative scoliosis: (10) Facet arthritis, degenerative, lumbar spine: (11) Lumbar stenosis with neurogenic claudication: Plan Hypoosmolar hyponatremia with hypervolemia Responding well to Lasix We will touch base with nephro We might cut back on her Lasix dose to once a day with potassium supplements Transfer out of ICU to [facility] Patient might need 1 more day of monitoring to watch her sodium level Hypertension: Increase the dose of hydralazine, continue losartan, clonidine, Bradycardic episodes are asymptomatic, Ideally she should not be taking clonidine, continue Imdur She is also on maximum dose of losartan Awaiting SNF placement Today my plan is to cut back on Lasix watch her for 1 more day I have low suspicion for any communicable diseases such as tuberculosis, that should not delay her discharge planning Electrolytes: Replenished Diastolic CHF exacerbation: Improving Degenerative scoliosis: Patient requires opioids for back pain Attestations Medical Necessity Statement*: Continue medical manage Diagnoses Hypo-osmolar hyponatremia E87.1 Hypertensive urgency I16.0 Fluid overload E87.70 Acute hyponatremia E87.1 Chronic hyponatremia E87.1 Acute exacerbation of CHF (congestive heart failure) I50.9 Generalized weakness R53.1 Anemia D64.9 Degenerative scoliosis M41.80 Facet arthritis, degenerative, lumbar spine M47.816 Lumbar stenosis with neurogenic claudication M48.062
[2022-11-02] MEDS: cloNIDine 0.1 mg Tablet PO ×2 (09:23→22:38)
--- NOTE | 2022-11-02 09:34 | PC.NURSE ---
Pt was transferred to [facility] at 0920 with all belongings and at bedside.
[2022-11-02 13:44] LABS: Quantiferon Mitogen 5.84 IU/mL; Quantiferon Nil 0.03 IU/mL; Quantiferon Plus TB1 <0.00 IU/mL; Quantiferon Plus TB2 <0.00 IU/mL; Quantiferon TB Gold NEGATIVE (NEGATIVE)
[2022-11-02] MEDS: hyDRALAzine 50 mg Tablet PO ×2 (14:35→22:38)
--- NOTE | 2022-11-02 21:24 | PM.PN ---
Subjective Subjective: c/o pain Medications: Reviewed: Yes Vitals/I&O/Wt Last Vital Signs Temp 98.5 F 11/02/22 20:00 Pulse 57 L 11/02/22 20:00 Resp 16 11/02/22 20:00 BP 177/72 11/02/22 20:00 Pulse Ox 93 11/02/22 20:00 O2 Del Method Room Air 11/02/22 20:00 O2 Flow Rate 2 11/02/22 20:10 11/02/22 11/02/22 11/02/22 06:59 14:59 22:59 Intake Total 200 / 1000 120 / 120 240 / 360 Output Total 300 / 3150 1300 / 1300 Balance -100 / -2150 120 / 120 -1060 / -940 Weight last 48 hrs Weight 66.678 kg Physical Exam Narrative: Patient is awake alert, no acute distress HEENT, PERRLA S1-S2 regular rate and rhythm per report Decreased breath sounds at base No pedal edema. Urinary Catheter Management: Lim: Cath Placed During This Visit: yes Reason for Continuing Indwelling Catheter: Acute Urinary Retention or Obstruction Urinary Catheter Date of Insertion: 10/29/22 Urinary Catheter Time of Insertion: 22:00 Data 11/02/22 02:42 11/02/22 02:42 A&P Assessment and plan (1) Acute hyponatremia: Plan 1. Acute on chronic hyponatremia: Baseline sodiums in the high 120s to low 130s range. Likely from hypervolemia, HCTZ use question SIADH. -s/p 3% saline , -Goal correction up to 8 mmol/L per 24 hours - added fluid restriction 1200 ml/day ,and started Lasix- 40 mg daily , Na 127 today , monitor 2. Hypertension: Blood pressure elevated in the ER, restart home meds 3. Anemia hemoglobin 9.2 , further work-up in progress Patient evaluated using audiovisual cart. Time spent 35 minutes Attestations Medical Necessity Statement*: per medicine Coding Level of Care Code Acute Code for [facility] Fwd Diagnoses Acute hyponatremia E87.1
[2022-11-02] MEDS: enoxaparin 40 mg/0.4 mL Syringe SUBCUT (22:38)
[2022-11-02] MEDS: pantoprazole 40 mg SDV IVP (22:38)
[2022-11-03] VITALS (7 sets, daily range): BP systolic 168–182; BP diastolic 64–86; PULSE 57–84; RESP 16–19; TEMP 36.3–36.8; O2SAT 92–96
[2022-11-03] MEDS: hyDRALAzine 50 mg Tablet PO (06:07)
[2022-11-03] MEDS: oxyCODONE 5 mg IR Tab/Cap PO ×3 (06:24→10:06)
[2022-11-03 06:29] LABS: Anion Gap 12.3 (5-19); Blood Urea Nitrogen 18 mg/dL (8-23); Calcium 8.3 mg/dL (8.5-10.5); Carbon Dioxide 34 mmol/L (22-29); Chloride 85 mmol/L (98-107); Glucose 124 mg/dL (65-115); Osmolality Calculated 269 mOsm/kg (285-295); Potassium 3.3 mmol/L (3.5-5.1); Sodium 128 mmol/L (136-145)
[2022-11-03] MEDS: levothyroxine 88 mcg Tablet PO (10:06)
[2022-11-03] MEDS: cloNIDine 0.1 mg Tablet PO (10:06)
[2022-11-03] MEDS: losartan 50 mg Tablet PO (10:07)
[2022-11-03] MEDS: FUROsemide 40 mg Tablet PO (10:07)
[2022-11-03] MEDS: potassium chloride ER 20 mEq Tablet PO (10:07)
[2022-11-03] MEDS: isosorbide mononitrate ER 60 mg Tablet PO (10:07)
--- NOTE | 2022-11-03 10:36 | P.DS_ITS ---
Discharge Providers Date of Admission: 10/29/22 20:08 Date of Discharge: November 03, 2022 Attending Provider at Admission: Viral Farrar MD Attending Provider at Discharge: Milrded Adkins MD Primary Care Provider: Doe Bui MD Diagnoses at Discharge Discharge Diagnosis (1) Acute hyponatremia: Status: Acute Reason for Visit Reason for Visit: abnormal Labs, High Sodium Hospital Course Hospital Course 84-year-old female with a history of scoliosis, back pain, opioid dependent, was addition of discharge from the hospital after management of pneumonia and hyponatremia came back with worsening of hyponatremia, on previous admission she refused SNF placement which was recommended at this time she is agreeable to go to SNF.? is not able to care for her.? She has hypovolemic hyponatremia with hypervolemia responded well to hypertonic saline initially and then she was diuresed which improved her sodium to 128.? She will need Lasix on daily basis along potassium supplement.? She is also experiencing anorexia with poor p.o. intake, complaint of dysphagia might have been as well that she will aspiration to thin liquid, she will get thick liquid pur?ed diet.? She also remains hypertensive antihypertensive regimen has been adjusted, unfortunately she is dependent on clonidine for now which is not ideal antihypertensive regimen at elderly age.? Since her pneumonia diagnosis she has been requiring intermittent oxygen up to 2 L, however saturates well on room air in the daytime. Physical Exam Narrative: Awake and alert GCS 15 at the bedside Fatigued lethargic Nonfocal neuro exam Currently on room air doing well No active complaints No chest pain or shortness of breath Urinary Catheter Management: Lim: Cath Placed During This Visit: yes Reason for Continuing Indwelling Catheter: Acute Urinary Retention or Obstruction Urinary Catheter Date of Insertion: 10/29/22 Urinary Catheter Time of Insertion: 22:00 Discharge Data Studies Completed and Pending Completed Studies During Hospitalization Category [place] [id number] Routine Cat Scan 10/29/22 21:01 Completed Modified barium swallow [FL barium swallow modifd [id number] Exams 11/01/22 10:13 Completed ] Routine XR chest 1V portable [id number] Stat Exams 10/29/22 16:03 Completed XR chest 1V portable [id number] Stat Exams 10/30/22 01:17 Completed CV. echo complete* [id number] Routine Ultrasound 10/30/22 21:29 Completed Pending at discharge Category Date Time Status Blood Culture Routine Lab 10/29/22 22:00 Results Occult Blood Stool [Immunochemical Fecal OCB] Routine Lab 10/31/22 13:34 Uncollected Radiology Impressions Chest/Abdomen/Pelvis CT 10/29/22 21:01 IMPRESSION: 1. Areas of tree-in-bud densities are noted in the right upper lobe and in the left upper lobe/lingula. This may represent infectious bronchiolitis versus mycobacterial infection. 2. Confluent consolidation noted in the posterior right lower lobe. Additional airspace disease noted in the anterolateral right lower lobe. This is concerning for right lower lobe pneumonia. 3. Minimal bilateral pleural effusions. The right effusion may be partially loculated. 4. Findings of old granulomatous disease are identified. IMPRESSION: 1. Multiple small calcified gallstones are present in the gallbladder. There are no secondary signs of cholecystitis. 2. Abdominal aorta demonstrates severe atherosclerosis. There is severe narrowing of the aortic lumen near the level of the renal arteries. No aneurysm. 3. Retained stool throughout the colon, suggesting constipation. No inflammatory change of the colon noted. 4. Mild ascites in the pelvis. No loculated fluid collection. Chest X-Ray 10/30/22 01:17 IMPRESSION: 1. New right PICC in place. 2. Overall, unimproved lung findings. Modified Barium Swallow 11/01/22 10:13 IMPRESSION: Several episodes of aspiration resulting in spontaneous coughing with the thinner liquids. Study terminated early. Please see speech therapist report also for recommendations. Laboratory Results WBC 8.9 10^3/uL (4.0-10.0) 11/02/22 02:42 RBC 2.99 10^6/uL (4.1-5.3) L 11/02/22 02:42 Hgb 9.2 g/dL (11.5-15.3) L 11/02/22 02:42 Hct 27.7 % (37.0-47.0) L 11/02/22 02:42 MCV 92.6 fl (81-99) 11/02/22 02:42 MCH 30.8 pg (28.0-34.0) 11/02/22 02:42 MCHC 33.2 g/dL (30.0-36.0) 11/02/22 02:42 RDW 15.0 % (12.1-15.1) 11/02/22 02:42 Plt Count 251 10^3/cmm (130-400) 11/02/22 02:42 MPV 10.8 fL (7.4-10.4) H 11/02/22 02:42 Neut % (Auto) 73.8 % 11/02/22 02:42 Lymph % (Auto) 10.2 % 11/02/22 02:42 [place] % (Auto) 10.8 % 11/02/22 02:42 Eos % (Auto) 3.9 % 11/02/22 02:42 Baso % (Auto) 0.6 % 11/02/22 02:42 Neut # (Auto) 6.60 10^3/uL (1.8-7.7) 11/02/22 02:42 Lymph # (Auto) 0.9 10^3/uL (0.8-4.8) 11/02/22 02:42 [place] # (Auto) 1.0 10^3/uL (0.2-0.9) H 11/02/22 02:42 Eos # (Auto) 0.4 10^3/uL (0.0-0.8) 11/02/22 02:42 Baso # (Auto) 0.1 10^3/uL (0.0-0.1) 11/02/22 02:42 Nucleated RBC % (auto) 0 % 11/02/22 02:42 Nucleated RBCs # 0.0 /100WBC 11/02/22 02:42 ESR 25 mm/hr (0-15) H 10/29/22 21:49 PT 12.60 SECONDS (12.1-14.9) 10/29/22 17:30 INR 0.92 (0.8-1.2) 10/29/22 17:30 APTT 34.8 SECONDS (23.9-36.7) 10/29/22 17:30 Sodium 128 mmol/L (136-145) L 11/03/22 05:37 Potassium 3.3 mmol/L (3.5-5.1) L 11/03/22 05:37 Chloride 85 mmol/L (98-107) L 11/03/22 05:37 Carbon Dioxide 34 mmol/L (22-29) H 11/03/22 05:37 Anion Gap 12.3 (5-19) 11/03/22 05:37 BUN 18 mg/dL (8-23) 11/03/22 05:37 Creatinine 0.8 mg/dL (0.5-0.9) 11/03/22 05:37 GFR Calculation Not Reportable 11/03/22 05:37 Glucose 124 mg/dL (65-115) H 11/03/22 05:37 POC Glucose 122 mg/dL (70-110) H 10/30/22 21:00 Serum Osmolality 244 mOsm/kg (278-305) L 10/29/22 21:49 Calculated Osmolality 269 mOsm/kg (285-295) L 11/03/22 05:37 Lactic Acid 1.6 mmol/L (0.5-2.2) 10/29/22 21:49 Lactic Acid (Sepsis) 1.3 mmol/L (0.5-2.2) 10/29/22 18:32 Lactate Cancelled 10/29/22 17:30 Calcium 8.3 mg/dL (8.5-10.5) L 11/03/22 05:37 Phosphorus 2.8 mg/dL (2.5-4.5) 10/30/22 05:12 Magnesium 1.7 mg/dL (1.7-2.3) 10/30/22 05:12 Iron 43 ug/dL (37-145) 10/29/22 21:49 TIBC 210 mcg/dl 10/29/22 21:49 % Saturation 20.4 % (20-50) 10/29/22 21:49 Unsat Iron Binding 167 ug/dL (112-347) 10/29/22 21:49 Ferritin 239 ng/mL (15-150) H 10/29/22 21:49 Total Bilirubin 0.6 mg/dL (0.15-1.2) 10/29/22 17:30 AST 29 U/L (0-32) 10/29/22 17:30 ALT 10 U/L (0-33) 10/29/22 17:30 Alkaline Phosphatase 84 U/L (35-105) 10/29/22 17:30 Troponin T Baseline 91 ng/L (0-10) H 10/29/22 17:30 Troponin T 120 Minute 86.15 ng/L (0-10) H 10/29/22 19:23 Delta Troponin T -4.85 ABS# (0-10) L 10/29/22 19:23 Troponin T Hi Sens 6Hr 91.37 ng/L (0-10) H 10/29/22 01:29 Troponin T Hi Sens 6Hr Delta 0.37 ng/L (0-12) 10/29/22 01:29 C-Reactive Protein 21.5 mg/L (0.0-4.9) H 10/29/22 21:49 NT-Pro-B Natriuret Pep 51455 pg/mL (0-450) H 10/29/22 21:49 Total Protein 6.7 g/dL (6.6-8.7) 10/29/22 17:30 Albumin 3.1 g/dL (3.5-5.2) L 10/29/22 17:30 Globulin 3.6 g/dL (1.3-4.6) 10/29/22 17:30 Triglycerides 81 mg/dL (0-150) 10/29/22 21:49 Cholesterol 166 mg/dL (0-200) 10/29/22 21:49 LDL Cholesterol, Calc 91 mg/dL (50-129) 10/29/22 21:49 HDL Cholesterol 59 mg/dL (60-100) L 10/29/22 21:49 LDL/HDL Ratio 1.54 RATIO (0.00-3.22) 10/29/22 21:49 Cholesterol/HDL Ratio 2.81 mg/dL (0.0-4.40) 10/29/22 21:49 Vitamin B12 745 pg/mL (232-1245) 10/29/22 21:49 Folate 5.6 ng/mL (4.8-37.3) 10/31/22 04:58 Procalcitonin 0.14 ng/mL (0-0.5) 10/29/22 21:49 TSH 3.09 uIU/mL (0.27-4.20) 10/29/22 21:49 Random Cortisol 14.05 ug/dL (2.47-19.5) 10/29/22 21:49 Urine Color Yellow (Yellow) 10/29/22 20:00 Urine Appearance Clear (CLEAR) 10/29/22 20:00 Urine pH 6.5 (5-7) 10/29/22 20:00 Ur Specific [place] 1.005 (1.005-1.030) 10/29/22 20:00 Urine Protein Neg (Negative) 10/29/22 20:00 Urine Glucose (UA) Norm (Normal) 10/29/22 20:00 Urine Ketones Negative (Negative) 10/29/22 20:00 Urine Blood Neg (Negative) 10/29/22 20:00 Urine Nitrate Negative (Negative) 10/29/22 20:00 Urine Bilirubin Neg (Negative) 10/29/22 20:00 Urine Urobilinogen Norm mg/dL (Negative) 10/29/22 20:00 Ur Leukocyte Esterase Negative (Negative) 10/29/22 20:00 Ur Eosinophil Smear 0 (0-0) 10/29/22 21:50 Urine Eosinophils No eosinophils seen 10/29/22 21:50 Urine Osmolality 208 mOsm/kg (50-1200) 10/29/22 21:50 Ur Random Sodium 73 mmol/L 10/29/22 21:50 Ur Random Potassium 11 mmol/L 10/29/22 21:50 Ur Random Chloride 78 mmol/L 10/29/22 21:50 Ur Random Urea Nitrogn 85 mg/dL 10/29/22 21:50 Urine Creatinine 11 mg/dL (28-217) L 10/29/22 21:50 HIV 1&2 Ab & HIV 1 Ag Non-reactive (Non-Reactiv) 10/30/22 01:29 HIV 1&2 Antibody Non-reactive (Non-Reactiv) 10/30/22 01:29 TB (QFT) Gold In Tube Negative (NEGATIVE) 10/30/22 01:29 TB Test (QFT) Nil 0.03 IU/mL 10/30/22 01:29 TB Test (QFT) Mitogen 5.84 IU/mL 10/30/22 01:29 TB Test Mitogen - Nil <0.00 IU/mL 10/30/22 01:29 TB Test TB -Nil <0.00 IU/mL 10/30/22 01:29 Blood Type A Positive 10/31/22 14:59 Rho(D) Type Positive 10/31/22 14:59 Antibody Screen Negative 10/31/22 14:59 Crossmatch See Detail 10/31/22 14:59 Vitals Last Vital Signs Temp 97.3 F L 11/03/22 08:00 Pulse 84 11/03/22 08:00 Resp 19 H 11/03/22 08:00 BP 180/64 11/03/22 08:00 Pulse Ox 95 11/03/22 08:00 O2 Del Method Nasal Cannula 11/03/22 08:00 O2 Flow Rate 2 11/02/22 20:10 Discharge Plan Discharge Patient Disposition: Xfer SNF Condition: Stable Prescriptions: New furosemide 40 mg Tablet 20 mg PO DAILY Qty: 60 0RF Klor-Con M20 20 mEq Tablet,Er Particles/Crystals 20 meq PO DAILY Qty: 30 2RF Continued lactulose 10 gram/15 mL (15 mL) solution 10 g PO DAILY PRN (Reason: constipation) Qty: 473 1RF levothyroxine 88 mcg tablet 88 mcg PO DAILY Qty: 90 3RF ondansetron HCl 4 mg tablet 4 mg PO Q6H PRN (Reason: nausea and vomiting) Qty: 30 3RF valsartan 160 mg tablet See Rx Instructions .ROUTE .COMPLEX Qty: 180 3RF Dose Instruction: Take 1 tablet by mouth twice daily Rx Instructions: Take 1 tablet by mouth twice daily isosorbide mononitrate 60 mg tablet extended release 24 hr See Rx Instructions .ROUTE .COMPLEX Qty: 90 3RF Dose Instruction: Take 1 tablet by mouth once daily Rx Instructions: Take 1 tablet by mouth once daily magnesium oxide 400 mg (241.3 mg magnesium) tablet See Rx Instructions .ROUTE .COMPLEX Qty: 180 3RF Dose Instruction: Take 1 tablet by mouth twice daily Rx Instructions: Take 1 tablet by mouth twice daily hydrocodone-acetaminophen 10-325 mg tablet 1 tab PO Q4H PRN (Reason: Pain) 30 Days Qty: 180 0RF tamsulosin 0.4 mg capsule 0.4 mg PO BID felodipine 10 mg tablet extended release 24 hr 10 mg PO DAILY gabapentin 100 mg capsule 100 mg PO BID albuterol sulfate 90 mcg/actuation HFA aerosol inhaler 1 inh inhalation Q6H PRN (Reason: shortness of breath or wheezing) Qty: 8.5 0RF benzonatate 100 mg Capsule 100 mg PO TID PRN (Reason: Cough) hydralazine 25 mg Tablet 25 mg PO TID Qty: 90 3RF clonidine HCl 0.1 mg tablet 0.1 mg PO BID Qty: 60 0RF Discharge Orders: Discharge Order (Routine); Ordered 11/03/22 Ordered By: Mildred Adkins Referrals: [facility] [Outside] Doe Bui MD [Primary Care Provider] - 1-3 days Patient Instructions: Opioid Safety Discharge Attestations Time Spent in Discharge Care*: greater than 30 min Quality Metrics Clinical Quality Measures [ No reported AMI, CVA or VTE this stay] Coding Level of Care Code Acute Code for [facility] Fwd Diagnoses Acute hyponatremia E87.1
--- NOTE | 2022-11-03 10:46 | PC.SOCIAL ---
Imm update imm updated with patient and at bedside. Copy of page 2 provided. Patient verbalized understanding. Copy in chart initialed, dated and timed.
[2022-11-03 11:27] LABS: SARS Covid-2 Antigen negative (Negative)
--- NOTE | 2022-11-03 12:39 | P.PN_ITS ---
Subjective Subjective: c/o pain Medications: Reviewed: Yes Vitals/I&O/Wt Last Vital Signs Temp 97.3 F L 11/03/22 08:00 Pulse 84 11/03/22 08:00 Resp 19 H 11/03/22 08:00 BP 180/64 11/03/22 08:00 Pulse Ox 95 11/03/22 08:00 O2 Del Method Nasal Cannula 11/03/22 08:00 O2 Flow Rate 2 11/03/22 08:00 11/02/22 11/03/22 11/03/22 22:59 06:59 14:59 Intake Total 240 / 360 360 / 360 Output Total 1500 / 1500 475 / 1975 Balance -1260 / -1140 -475 / -1615 360 / 360 Weight last 48 hrs Weight 66.678 kg Physical Exam Narrative: Patient is awake alert, no acute distress HEENT, PERRLA S1-S2 regular rate and rhythm per report Decreased breath sounds at base No pedal edema. Urinary Catheter Management: Lim: Cath Placed During This Visit: yes Reason for Continuing Indwelling Catheter: Acute Urinary Retention or Obstruction Urinary Catheter Date of Insertion: 10/29/22 Urinary Catheter Time of Insertion: 22:00 Data 11/02/22 02:42 11/03/22 05:37 A&P Assessment and plan (1) Acute hyponatremia: Plan 1. Acute on chronic hyponatremia: Baseline sodiums in the high 120s to low 130s range. Likely from hypervolemia, HCTZ use question SIADH. -s/p 3% saline , - added fluid restriction 1200 ml/day ,and started Lasix- 40 mg daily , Na 128 today , monitor 2. Hypertension: Blood pressure elevated in the ER, restart home meds 3. Anemia hemoglobin 9.2 , further work-up in progress Patient evaluated using audiovisual cart. Time spent 35 minutes Attestations Medical Necessity Statement*: per medicine Coding Level of Care Code Acute Code for [facility] Fwd Diagnoses Acute hyponatremia E87.1
== END 2022-11-03 14:10 | disposition skilled nursing facility (03) | DRG 291 ==
LOC: ER 20:15 → ICU 20:47 → MEDSURG 11-02 09:22
PROVIDERS: Family Medicine; Hospitalist; Admitting Provider Family Medicine; Emergency Provider Emergency Medicine; PCP Family Medicine; Visit Provider Internal Medicine
DX: I11.0 Hypertensive heart disease with heart failure (principal); I50.33 Acute on chronic diastolic (congestive) heart failure; E87.1 Hypo-osmolality and hyponatremia; J21.9 Acute bronchiolitis, unspecified; D64.9 Anemia, unspecified; M41.50 Other secondary scoliosis, site unspecified; Z79.891 Long term (current) use of opiate analgesic; Z87.01 Personal history of pneumonia (recurrent); E87.70 Fluid overload, unspecified; R13.10 Dysphagia, unspecified; Z79.51 Long term (current) use of inhaled steroids; G89.29 Other chronic pain; M48.062 Spinal stenosis, lumbar region with neurogenic claudication; F41.9 Anxiety disorder, unspecified; K59.00 Constipation, unspecified; E03.9 Hypothyroidism, unspecified; I16.0 Hypertensive urgency; Z98.1 Arthrodesis status; G62.9 Polyneuropathy, unspecified; Z66 Do not resuscitate; M54.12 Radiculopathy, cervical region; I25.2 Old myocardial infarction; I25.10 Atherosclerotic heart disease of native coronary artery without angina pectoris
CPT/HCPCS: 12345; 36415; 36416; 36430; 36569; 51702; 71045; 71250; 74176; 74230; 80048; 80053; 80061; 81003; 82436; 82533; 82570; 82607; 82728; 82746; 82962; 83540; 83550; 83605; 83735; 83880; 83930; 83935; 84100; 84133; 84145; 84295; 84300; 84443; 84484; 84540; 85025; 85610; 85651; 85730; 85999; 86140; 86141; 86480; 86850; 86900; 86920; 87040; 87426; 87806; 92523; 92611; 93005; 93306; 94664; 96372; 96374; 96375; 96376; 97116; 97162; 97166; 97535; 99285; C1751; C9113; J1170; J1650; J1940; J7030; J7131; P9016; P9046; Q3014

== ENCOUNTER 2022-11-07 11:12 | Inpatient (IN) | payer MEDICARE, OTHER, SELFPAY ==
[2022-11-07] VITALS (13 sets, daily range): BP systolic 120–137; BP diastolic 40–65; PULSE 49–70; RESP 16–24; TEMP 36.6; O2SAT 98–100
--- NOTE | 2022-11-07 11:59 | ED_ITS ---
HPI - Recheck/Abnormal Lab/Rx General: Chief Complaint: Recheck/Abnormal Lab/Rx Stated Complaint: LOW SODIUM AT NH Time Seen by Provider: 11/07/22 11:13 History of Present Illness: 82-year-old female presents from retirement chief complaint of low sodium patient. Has a history of hyponatremia. The patient apparently had a recent pneumonia she been at the facility for she reports no shortness of breath or difficulty breathing no chest pain abdominal pain weakness reports had a significant meal yesterday patient is unsure what her sodium level why she reports she was on sodium tablets over there is a discontinued about a week ago in which she was also on some Lasix which was discontinued in which she reports no additional edema and swelling her legs patient does not endorse any other associated symptoms at this time. Review of Systems General: Reports: 10 or more systems reviewed and unremarkable except in HPI and below Const: Denies: fever(s), chills, fatigue or malaise Eyes: Denies: change in vision or blurry vision Card: Denies: chest pain or palpitations Resp: Denies: dyspnea or productive cough GI: Denies: abdominal pain, nausea or vomiting : Denies: flank pain Musc: Denies: extremity pain or extremity swelling Skin/Breast: Denies: rash or pruritus Neuro: Denies: headache(s) Psych: Denies: anxiety or depression Miller/Lymph: Denies: easy bleeding All/Imm: Denies: urticaria, throat swelling or facial swelling PFS ED PFSH: Medical History Acute exacerbation of CHF (congestive heart failure) Acute hyponatremia Anemia Aortic stenosis Cervical radiculopathy Chronic hyponatremia Chronic hyponatremia Chronic low back pain Has had recent back surgery Chronic respiratory failure with hypoxia Community acquired pneumonia Congestive heart failure Coronary artery disease Degenerative scoliosis Dehydration DNR (do not resuscitate) Elevated troponin Facet arthritis, degenerative, lumbar spine Fluid overload Generalized weakness History of [place] (myocardial infarction) 2018--had coronary artery stent placed Hypertension Chronic hypertension diagnosed at the age of 31. Follows up with cardiology Dr. Castellanos as well as her primary care provider. Hypertensive urgency Hypo-osmolar hyponatremia Serum osmolarity 255, urine osmolality 288, urine sodium 73, hypervolemic hyponatremia Hypoxia Lumbar stenosis with neurogenic claudication Malaise and fatigue Nausea No pertinent past medical history Denies diabetes, asthma, seizures, DVT/PE PCP: Dr. Bui Peripheral neuropathy Pneumonia Right lower lobe pneumonia Uncontrolled hypertension Vaginal prolapse 09/30/2021--grade 3-4 cystocele, grade 3 vault prolapse, grade 1 rectocele Surgical History History of back surgery March 2021--performed by Dr. Nunez at [facility] [place]. History of heart artery stent 2018 after heart attack History of tubal ligation In her mid 30s---done through supra umbilical minilaparotomy incision S/P hysterectomy Vaginal hysterectomy for prolapse performed by Dr. George in 2018. Her ovaries were not removed. Family History Mother Heart disease Hypertension Colon cancer diagnosed in her late 60s Daughter Heart disease Family/Other Breast cancer maternal aunt, age at diagnosis unknown Social History Smoking and tobacco status: never smoked Substance/Drug Use: never Physical Exam Const: COMMON NORMALS: no acute distress, patient oriented x3 and healthy a ppearing HENMT: COMMON NORMALS: normocephalic and atraumatic HEAD & SCALP: normocephalic and atraumatic Eye: COMMON NORMALS: Equal, round and reactive pupils present and EOMs intact bilaterally PUPIL: Yes Equal, round and reactive pupils present Neck/C-Spine: COMMON NORMALS: full ROM, supple and no JVD Lymph: LYMPHATIC: no lymphadenopathy noted Chest: COMMONS NORMALS: normal inspection of the chest and normal palpation of entire chest wall Resp: COMMON NORMALS: normal respiratory effort, No retractions and clear to a uscultation bilaterally EFFORT & INSPECTION: Yes able to speak in complete sentences and Yes symmetric chest movement AUSCULTATION: clear to auscu ltation bilaterally Cardio: COMMON NORMALS: no JVD, regular rate and regular rhythm RATE: regular rate RHYTHM: regular rhythm GI: COMMON NORMALS: Normal to inspection, nondistended, normoactive bowel sounds present, Soft to palpation and non-tender INSPECTION: Yes normal to inspection PALPATION: Yes Soft to palpation : COMMON NORMALS: Yes no CVA tenderness BLADDER/KIDNEY EXAM: Yes no CVA tenderness Back/Pelvis: COMMON NORMALS: no CVA tenderness Extremity: COMMON NORMALS: normal to inspection and full ROM; negative for no pedal edema (Mild peripheral pitting edema appreciated 2+ bilateral lower extremities) Neuro: COMMON NORMALS: patient oriented x3, CN's II-XII intact bilaterally, moves all extremities and no focal motor deficits Psych: COMMON NORMALS: mental status grossly normal, Normal thought process present, cooperative and normal affect THOUGHT PROCESS: Normal thought process present Skin: COMMON NORMALS: no rashes or lesions noted GENERAL SKIN EXAM: no ra shes or lesions noted Course Vital Signs: Vital signs: Vital Signs Pulse Rate 60 11/07/22 14:03 Respiratory Rate 16 11/07/22 11:13 Blood Pressure 129/46 11/07/22 14:03 Pulse Oximetry 100 11/07/22 14:03 Oxygen Delivery Me thod Nasal Cannula 11/07/22 14:03 Oxygen Flow Rate 2 11/07/22 14:03 MDM - Recheck/Abnormal Lab/Rx Medical Decision Making Patient's caseDue to patient's symptoms patient was established basic lab work imaging will be day IV fluids provided for hydration as well as patient's presumed underlying hyponatremia we will continue to follow patient is currently asymptomatic with the patient's hyponatremia combination of being somewhat fluid overload due to her chronic heart failure as well as her on long-term diuretics patient also reports that recently she was on salt tablets up until about a week ago which may have contributed to her hyponatremia we will continue to follow patient's sodium continue to only be at 120 despite IV fluid bolus as well as Lasix. With Dr. James hospitalist that recommends placement in observation status overnight still currently awaiting urinalysis to be resulted patient otherwise remains in stable condition she does have a mild renal insufficiency her potassium did improve down to 5.2 Lab Data 11/07/22 11:55 11/07/22 13:49 Laboratory Results WBC 9.8 10^3/uL (4.0-10.0) 11/07/22 11:55 RBC 3.18 10^6/uL (4.1-5.3) L 11/07/22 11:55 Hgb 9.8 g/dL (11.5-15.3) L 11/07/22 11:55 Hct 30.2 % (37.0-47.0) L 11/07/22 11:55 MCV 95.0 fl (81-99) 11/07/22 11:55 MCH 30.8 pg (28.0-34.0) 11/07/22 11:55 MCHC 32.5 g/dL (30.0-36.0) 11/07/22 11:55 RDW 14.3 % (12.1-15.1) 11/07/22 11:55 Plt Count 227 10^3/cmm (130-400) 11/07/22 11:55 MPV 10.4 fL (7.4-10.4) 11/07/22 11:55 Neut % (Auto) 81.0 % 11/07/22 11:55 Lymph % (Auto) 8.3 % 11/07/22 11:55 [place] % (Auto) 7.7 % 11/07/22 11:55 Eos % (Auto) 2.0 % 11/07/22 11:55 Baso % (Auto) 0.6 % 11/07/22 11:55 Neut # (Auto) 7.92 10^3/uL (1.8-7.7) H 11/07/22 11:55 Lymph # (Auto) 0.8 10^3/uL (0.8-4.8) 11/07/22 11:55 [place] # (Auto) 0.8 10^3/uL (0.2-0.9) 11/07/22 11:55 Eos # (Auto) 0.2 10^3/uL (0.0-0.8) 11/07/22 11:55 Baso # (Auto) 0.1 10^3/uL (0.0-0.1) 11/07/22 11:55 Nucleated RBC % (auto) 0 % 11/07/22 11:55 Nucleated RBCs # 0.0 /100WBC 11/07/22 11:55 Sodium 120 mmol/L (136-145) L 11/07/22 13:49 Potassium 5.2 mmol/L (3.5-5.1) H 11/07/22 13:49 Chloride 82 mmol/L (98-107) L 11/07/22 13:49 Carbon Dioxide 28 mmol/L (22-29) 11/07/22 13:49 Anion Gap 15.2 (5-19) 11/07/22 13:49 BUN 30 mg/dL (8-23) H 11/07/22 13:49 Creatinine 1.2 mg/dL (0.5-0.9) H 11/07/22 13:49 GFR Calculation Not Reportable 11/07/22 13:49 Glucose 101 mg/dL (65-115) 11/07/22 13:49 Calculated Osmolality 256 mOsm/kg (285-295) L 11/07/22 13:49 Calcium 8.0 mg/dL (8.5-10.5) L 11/07/22 13:49 Total Bilirubin 0.5 mg/dL (0.15-1.2) 11/07/22 11:55 AST 28 U/L (0-32) 11/07/22 11:55 ALT 12 U/L (0-33) 11/07/22 11:55 Alkaline Phosphatase 72 U/L (35-105) 11/07/22 11:55 NT-Pro-B Natriuret Pep 6241 pg/mL (0-450) H 11/07/22 11:55 Total Protein 6.4 g/dL (6.6-8.7) L 11/07/22 11:55 Albumin 3.3 g/dL (3.5-5.2) L 11/07/22 11:55 Globulin 3.1 g/dL (1.3-4.6) 11/07/22 11:55 Discharge Plan Discharge Patient Disposition: Admitted As Inpatient Clinical Impression: Chronic renal insufficiency, Acute kidney insufficiency, Heart failure Condition: Stable Coding Level of Care Code ED Shredding Machine Knife Changer for Lawrence Begum
[2022-11-07 12:15] LABS: Basophils # 0.1 10^3/uL (0.0-0.1); Basophils % 0.6 %; Eosinophils # 0.2 10^3/uL (0.0-0.8); Hematocrit 30.2 % (37.0-47.0); Hemoglobin 9.8 g/dL (11.5-15.3); Lymphocytes # 0.8 10^3/uL (0.8-4.8); Lymphocytes % 8.3 %; Mean Corpuscular HGB Conc 32.5 g/dL (30.0-36.0); Mean Corpuscular Hemoglobin 30.8 pg (28.0-34.0); Mean Platelet Volume 10.4 fL (7.4-10.4); Monocytes # 0.8 10^3/uL (0.2-0.9); Monocytes % 7.7 %; Neutrophils # 7.92 10^3/uL (1.8-7.7); Nucleated Red Blood Cells % 0 %; Platelet Count 227 10^3/cmm (130-400); Red Blood Count 3.18 10^6/uL (4.1-5.3); Red Cell Distribution Width 14.3 % (12.1-15.1); White Blood Count 9.8 10^3/uL (4.0-10.0)
[2022-11-07] MEDS: sodium chloride 0.9% 1,000 ML 999 ML IV ×2 (12:15→14:01)
[2022-11-07 12:36] LABS: Alanine Aminotransferase 12 U/L (0-33); Albumin Level 3.3 g/dL (3.5-5.2); Alkaline Phosphatase 72 U/L (35-105); Anion Gap 15.4 (5-19); Aspartate Amino Transferase 28 U/L (0-32); Blood Urea Nitrogen 32 mg/dL (8-23); Calcium 8.3 mg/dL (8.5-10.5); Carbon Dioxide 30 mmol/L (22-29); Chloride 81 mmol/L (98-107); Globulin 3.1 g/dL (1.3-4.6); Glucose 130 mg/dL (65-115); NT Pro B Type Natriuretic Pept 6241 pg/mL (0-450); Osmolality Calculated 261 mOsm/kg (285-295); Potassium 5.4 mmol/L (3.5-5.1); Sodium 121 mmol/L (136-145); Total Bilirubin 0.5 mg/dL (0.15-1.2); Total Protein 6.4 g/dL (6.6-8.7)
--- NOTE | 2022-11-07 12:55 | PC.PHAR ---
pt is from [facility]
[2022-11-07] MEDS: FUROsemide 10 mg/mL SDV 4mL 40 MG IVP (13:11)
[2022-11-07 14:19] LABS: Blood Urea Nitrogen 30 mg/dL (8-23); Carbon Dioxide 28 mmol/L (22-29); Chloride 82 mmol/L (98-107); Glucose 101 mg/dL (65-115); Osmolality Calculated 256 mOsm/kg (285-295); Sodium 120 mmol/L (136-145)
[2022-11-07 14:27] LABS: Anion Gap 15.2 (5-19); Potassium 5.2 mmol/L (3.5-5.1)
[2022-11-07 15:30] LABS: Add Urine Microscopic? YES; Bilirubin Urine Neg (Negative); Blood Urine Neg (Negative); Glucose Urine UA Norm (Normal); Ketones Urine Negative (Negative); Leukocyte Esterase Urine Trace (Negative); Nitrate Urine Negative (Negative); Protein Urine Neg (Negative); Specific Gravity, Urine 1.005 (1.005-1.030); Urine Appearance Clear (CLEAR); Urine Color Straw (Yellow); Urobilinogen Urine Norm (Negative); pH Urine 6.5 (5-7)
[2022-11-07 15:31] LABS: Add Urine Culture? No; Bacteria Urine TRACE /hpf
--- NOTE | 2022-11-07 15:42 | P.HP_ITS ---
Providers/Chief Complaint Admitting Physician: Doe James MD Primary Care Provider: Doe Bui MD Chief Complaint: LOW SODIUM AT NH History of Present Illness Kati Chris is a 82 year old female with a past medical history significant for chronic low back pain, CAD, history of DC, hypertension, multiple recent hospitalizations, and hyponatremia who presents with acute on chronic hyponatremia. Patient reports she was taken to the ED due to lab values. She endorses associated symptoms of diffuse fatigue, malaise, severe lower extremity edema, and weakness. Reports chronic back pain. Denies seizures or abnormal movements. Denies other alleviating or aggravating factors. Patient has a history of chronic hyponatremia with recent admission. Per ED provider report, the patient was taken off her Lasix and salt tabs by longterm recently for unclear reasons. Review of Systems Narrative: A complete review of systems was obtained and is negative except as stated in HPI. Medications/Allergies Home Medications Medication Instructions Recorded Confirmed Last Taken Type hydrocodone 10 mg-acetaminophen 1 tab PO Q4H PRN Pain 30 days #180 09/27/22 11/07/22 11/07/22 Rx 325 mg tablet tabs felodipine 10 mg tablet,extended 10 mg PO DAILY@08 10/08/22 11/07/22 11/07/22 History release 24 hr gabapentin 100 mg capsule 100 mg PO BID 10/08/22 11/07/22 11/07/22 History tamsulosin 0.4 mg capsule 0.4 mg PO BID 10/08/22 11/07/22 11/07/22 History albuterol sulfate 90 mcg/actuation 1 inh inhalation Q6H PRN shortness 10/10/22 11/07/22 Unknown Rx aerosol inhaler of breath or wheezing #8.5 grams ondansetron HCl 4 mg tablet 4 mg PO Q6H PRN nausea and 10/14/22 11/07/22 Unknown Rx vomiting #30 tabs benzonatate 100 mg capsule 100 mg PO TID PRN Cough 10/16/22 11/07/22 Unknown History clonidine HCl 0.1 mg tablet 0.1 mg PO BID #60 tabs 10/27/22 11/07/22 11/07/22 Rx hydralazine 25 mg tablet 25 mg PO TID #90 tabs 10/27/22 11/07/22 11/07/22 Rx lactulose 10 gram/15 mL (15 mL) 10 g (15 mL) PO DAILY PRN 10/29/22 11/07/22 Unknown Rx oral solution constipation #473 mL acetaminophen 325 mg tablet 650 mg PO Q6H PRN Pain 11/07/22 11/07/22 Unknown History (Tylenol) bisacodyl 10 mg rectal suppository 10 mg [place] DAILY PRN Constipation 11/07/22 11/07/22 Unknown History (Dulcolax (bisacodyl)) bisacodyl 5 mg tablet,delayed 10 mg PO DAILY PRN Constipation 11/07/22 11/07/22 Unknown History release (Dulcolax (bisacodyl)) furosemide 20 mg tablet 20 mg PO DAILY@11/07/22 11/07/22 11/07/22 History isosorbide mononitrate 60 mg 60 mg PO DAILY@11/07/22 11/07/22 11/07/22 History tablet,extended release 24 hr levothyroxine 88 mcg tablet 88 mcg PO DAILY@11/07/22 11/07/22 11/07/22 History magnesium hydroxide 400 mg/5 mL 30 ml PO .EVERY 72 HOURS PRN if no 11/07/22 11/07/22 Unknown History oral suspension (Milk of Magnesia) bm in 3 days *do not give to renal pts* magnesium oxide 400 mg (241.3 mg 400 mg PO BID 11/07/22 11/07/22 11/07/22 History magnesium) tablet menthol 0.44 %-zinc oxide 20.6 % See Rx Instructions .Route .COMPLEX 11/07/22 11/07/22 11/07/22 History topical ointment (Calmoseptine) potassium chloride 20 mEq 20 meq PO DAILY@11/07/22 11/07/22 11/07/22 History tablet,extended release(part/cryst) (Klor-Con M) sodium phosphates 19 gram-7 118 ml [place] DAILY PRN Constipation 11/07/22 11/07/22 Unknown History gram/118 mL enema (Fleet Enema) valsartan 160 mg tablet 160 mg PO BID 11/07/22 11/07/22 11/07/22 History Allergies Allergy/AdvReac Type Severity Reaction Status Date / Time prazosin Allergy Severe ALGY-Difficulty Verified 11/07/22 12:55 Breathing PFSH Acute PFSH: Medical History (Updated 11/07/22 @ 17:48 by Doe James MD) Acute exacerbation of CHF (congestive heart failure) Acute hyponatremia Anemia Aortic stenosis Cervical radiculopathy Chronic hyponatremia Chronic hyponatremia Chronic low back pain Has had recent back surgery Chronic respiratory failure with hypoxia Community acquired pneumonia Congestive heart failure Corneal abrasion, right Coronary artery disease Degenerative scoliosis Dehydration DNR (do not resuscitate) Elevated troponin Encounter for pre-operative cardiovascular clearance Facet arthritis, degenerative, lumbar spine Fluid overload Generalized weakness History of [place] (myocardial infarction) 2018--had coronary artery stent placed Hypertension Chronic hypertension diagnosed at the age of 31. Follows up with cardiology Dr. Castellanos as well as her primary care provider. Hypertensive urgency Hypo-osmolar hyponatremia Serum osmolarity 255, urine osmolality 288, urine sodium 73, hypervolemic hyponatremia Hypoxia Lumbar stenosis with neurogenic claudication Malaise and fatigue Nausea No pertinent past medical history Denies diabetes, asthma, seizures, DVT/PE PCP: Dr. Bui Peripheral neuropathy Pneumonia Right lower lobe pneumonia Uncontrolled hypertension Vaginal prolapse 09/30/2021--grade 3-4 cystocele, grade 3 vault prolapse, grade 1 rectocele Surgical History History of back surgery March 2021--performed by Dr. Nunez at [facility] [place] History of heart artery stent 2017 after heart attack History of tubal ligation In her mid 30s---done through supra umbilical minilaparotomy incision S/P hysterectomy Vaginal hysterectomy for prolapse performed by Dr. George in 2018. Her ovaries were not removed. Family History Mother Heart disease Hypertension Colon cancer diagnosed in her late 60s Daughter Heart disease Family/Other Breast cancer maternal aunt, age at diagnosis unknown Social History Smoking and tobacco status: never smoked Alcohol intake: never Substance/Drug Use: never Vitals/I&O/Wt Last Vital Signs Pulse 62 11/07/22 15:26 Resp 16 11/07/22 11:13 BP 137/47 11/07/22 15:26 Pulse Ox 100 11/07/22 15:26 O2 Del Method Nasal Cannula 11/07/22 15:26 O2 Flow Rate 2 11/07/22 15:26 11/07/22 11/07/22 11/07/22 06:59 14:59 22:59 Intake Total 1000 / 1000 Balance 1000 / 1000 Weight last 48 hrs Weight 58.967 kg Physical Exam Narrative: General: Patient is frail. Ill appearing. Head: Temporal wasting. Neck: No JVD. Cardiovascular: No gallops. No murmurs. 3-4+ pitting edema bilaterally. Lungs: Adequate air movement. No wheezing. No Crackles. Skin: No jaundice. No rashes. Abdomen: Normal bowel sounds, abdomen soft and nontender. Genito Urinary: Genital exam not performed since complaints not related. Rectal: Rectal exam not performed since no symptoms indicated blood loss. Extremities: No cyanosis or clubbing. Musculoskeletal: No overt joint deformity. Neurological: Moves all 4 extremities. No myoclonus. Data 11/07/22 11:55 11/07/22 13:49 A&P Assessment and plan (1) Chronic hyponatremia: Acute on chronic hyponatremia Suspect multifactoral Start IV Lasix Restart salt tabs BMP Q6H Avoid over correction Urine electrolytes ordered Fall precautions Seizure precautions Neurochecks (2) Heart failure: Acute on chronic heart failure exacerbation with borderline EF of 50 percent Starting IV Lasix Strict I&Os Daily weights (3) Coronary artery disease: Qualifiers: Coronary Disease-Associated Artery/Lesion type: [place] artery [place] vs. transplanted heart: [place] heart Associated angina: without angina Qualified Code(s): I25.10 - Atherosclerotic heart disease of [place] coronary artery without angina pectoris (4) Hypertension: Continue clonidine Continue hydralazine Lasix as above Qualifiers: Hypertension type: essential hypertension Qualified Code(s): I10 - Essential (primary) hypertension (5) Chronic renal insufficiency: Monitor renal function, Cr slightly elevated, BUN elevated Renally dose medications (6) Hyperkalemia: Telemetry Trend renal function Plan DVT ppx: Heparin Code status: Full Code Attestations Medical Necessity Statement*: Patient presents with acute on chronic hyponatremia and CHF exacerbation with expected work up not to cross two midnights. Coding Level of Care Code Acute Code for Chg Fwd Diagnoses Chronic hyponatremia E87.1 Heart failure I50.9 Coronary artery disease I25.10 Coronary Disease-Associated Artery/Lesion type: [place] artery [place] vs. transplanted heart: [place] heart Associated angina: without angina Hypertension I10 Hypertension type: essential hypertension Chronic renal insufficiency N18.9 Hyperkalemia E87.5
[2022-11-07] MEDS: HYDROcodone-acetaminophen 10-325 mg Tablet 1 TAB PO ×2 (16:07→20:09)
[2022-11-07 18:21] LABS: Blood Urea Nitrogen 31 mg/dL (8-23); Calcium 7.9 mg/dL (8.5-10.5); Carbon Dioxide 28 mmol/L (22-29); Chloride 87 mmol/L (98-107); Glucose 100 mg/dL (65-115); Osmolality Calculated 263 mOsm/kg (285-295); Sodium 123 mmol/L (136-145)
[2022-11-07] MEDS: magnesium oxide 400 mg tablet PO (18:33)
[2022-11-07] MEDS: gabapentin 100 mg Capsule PO (18:34)
[2022-11-07] MEDS: cloNIDine 0.1 mg Tablet PO (18:34)
[2022-11-07] MEDS: tamsulosin 0.4 mg Capsule PO (18:34)
[2022-11-07] MEDS: losartan 50 mg Tablet PO (18:34)
[2022-11-07] MEDS: heparin 5,000 unit/mL INJ 1 mL 5000 UNIT SUBCUT (18:34)
[2022-11-07 18:41] LABS: Creatinine Clr Calc Pharmacy 37.0223
[2022-11-07 19:46] LABS: Add Urine Microscopic? NO
[2022-11-07 20:03] LABS: Potassium, Radom Urine 34 mmol/L; Urine Random Chloride 37 mmol/L; Urine Random Sodium 34 mmol/L
[2022-11-07] MEDS: sodium chloride 1 gm Tablet PO (20:09)
[2022-11-07] MEDS: hyDRALAzine 25 mg Tablet PO (20:09)
[2022-11-07 20:11] LABS: Bilirubin Urine Neg (Negative); Blood Urine Neg (Negative); Glucose Urine UA Norm (Normal); Ketones Urine Negative (Negative); Leukocyte Esterase Urine Negative (Negative); Nitrate Urine Negative (Negative); Protein Urine Neg (Negative); Urine Appearance Clear (CLEAR); Urine Color Colorless (Yellow); Urobilinogen Urine Norm (Negative); pH Urine 7 (5-7)
[2022-11-07 20:52] LABS: Creatinine Urine, Random 44 mg/dL (28-217)
[2022-11-07 21:24] LABS: Urea Nitrogen,Urine Random 244 mg/dL
[2022-11-07 23:33] LABS: Blood Urea Nitrogen 32 mg/dL (8-23); Calcium 7.5 mg/dL (8.5-10.5); Carbon Dioxide 23 mmol/L (22-29); Chloride 88 mmol/L (98-107); Glucose 104 mg/dL (65-115); Osmolality Calculated 261 mOsm/kg (285-295); Sodium 122 mmol/L (136-145)
[2022-11-07 23:34] LABS: Creatinine Clr Calc Pharmacy 37.0223
[2022-11-07 23:38] LABS: Anion Gap 16.5 (5-19); Potassium 5.5 mmol/L (3.5-5.1)
[2022-11-08] VITALS (19 sets, daily range): BP systolic 128–159; BP diastolic 40–81; PULSE 54–79; RESP 7–26; TEMP 36.1–36.8; O2SAT 97–100
[2022-11-08] MEDS: HYDROcodone-acetaminophen 10-325 mg Tablet 1 TAB PO ×6 (00:10→22:49)
[2022-11-08] MEDS: FUROsemide 10 mg/mL SDV 4mL 40 MG IVP ×2 (00:11→17:25)
[2022-11-08] MEDS: heparin 5,000 unit/mL INJ 1 mL 5000 UNIT SUBCUT ×2 (05:10→17:26)
[2022-11-08] MEDS: levothyroxine 88 mcg Tablet PO (05:10)
[2022-11-08 05:52] LABS: Basophils # 0.1 10^3/uL (0.0-0.1); Basophils % 0.9 %; Eosinophils # 0.3 10^3/uL (0.0-0.8); Eosinophils % 5.1 %; Hematocrit 27.8 % (37.0-47.0); Hemoglobin 8.9 g/dL (11.5-15.3); Lymphocytes % 15.8 %; Mean Corpuscular Hemoglobin 30.9 pg (28.0-34.0); Mean Corpuscular Volume 96.5 fl (81-99); Mean Platelet Volume 10.5 fL (7.4-10.4); Monocytes # 0.7 10^3/uL (0.2-0.9); Neutrophils # 4.41 10^3/uL (1.8-7.7); Neutrophils % 67.6 %; Nucleated Red Blood Cells % 0 %; Platelet Count 177 10^3/cmm (130-400); Red Blood Count 2.88 10^6/uL (4.1-5.3); Red Cell Distribution Width 14.6 % (12.1-15.1); White Blood Count 6.5 10^3/uL (4.0-10.0)
[2022-11-08 06:10] LABS: Blood Urea Nitrogen 28 mg/dL (8-23); Calcium 8.1 mg/dL (8.5-10.5); Carbon Dioxide 28 mmol/L (22-29); Chloride 87 mmol/L (98-107); Glucose 83 mg/dL (65-115); Magnesium 1.8 mg/dL (1.7-2.3); Osmolality Calculated 261 mOsm/kg (285-295); Phosphorus 3.6 mg/dL (2.5-4.5); Sodium 123 mmol/L (136-145)
[2022-11-08 06:12] LABS: Anion Gap 13.2 (5-19); Potassium 5.2 mmol/L (3.5-5.1)
[2022-11-08] MEDS: tamsulosin 0.4 mg Capsule PO ×2 (08:04→17:24)
[2022-11-08] MEDS: gabapentin 100 mg Capsule PO ×2 (08:05→17:25)
[2022-11-08] MEDS: isosorbide mononitrate ER 60 mg Tablet PO (08:05)
[2022-11-08] MEDS: losartan 50 mg Tablet PO ×2 (08:06→17:24)
[2022-11-08] MEDS: hyDRALAzine 25 mg Tablet PO (08:06)
[2022-11-08] MEDS: cloNIDine 0.1 mg Tablet PO ×2 (08:06→17:25)
[2022-11-08] MEDS: magnesium oxide 400 mg tablet PO ×2 (08:06→17:25)
[2022-11-08] MEDS: sodium chloride 1 gm Tablet PO ×3 (08:06→21:41)
[2022-11-08] MEDS: bisacodyl 5 mg Tablet 10 MG PO (08:12)
[2022-11-08 12:05] LABS: Blood Urea Nitrogen 30 mg/dL (8-23); Carbon Dioxide 27 mmol/L (22-29); Chloride 88 mmol/L (98-107); Glucose 104 mg/dL (65-115); Osmolality Calculated 264 mOsm/kg (285-295); Sodium 124 mmol/L (136-145)
[2022-11-08] MEDS: hyDRALAzine 50 mg Tablet PO ×2 (13:49→21:42)
--- NOTE | 2022-11-08 16:13 | PM.PN ---
Subjective Subjective: Hospital course, labs appreciated. Examination patient lying comfortably in bed. Continues to remain on nasal cannula satting over 95%. Blood pressures slightly elevated. Vitals/I&O/Wt Last Vital Signs Temp 98.0 F 11/08/22 12:00 Pulse 63 11/08/22 12:00 Resp 19 H 11/08/22 12:00 BP 131/47 11/08/22 12:00 Pulse Ox 97 11/08/22 12:00 O2 Del Method Nasal Cannula 11/08/22 12:00 O2 Flow Rate 2 11/07/22 18:05 11/08/22 11/08/22 11/08/22 06:59 14:59 22:59 Intake Total 240 / 240 Output Total 850 / 850 400 / 400 Balance -850 / 1270 -160 / -160 Weight last 48 hrs Weight 58.967 kg Physical Exam Narrative: General: Patient is frail. Ill appearing. Head: Temporal wasting. Neck: No JVD. Cardiovascular: No gallops. No murmurs. 3-4+ pitting edema bilaterally. Lungs: Adequate air movement. No wheezing. No Crackles. Skin: No jaundice. No rashes. Abdomen: Normal bowel sounds, abdomen soft and nontender. Genito Urinary: Genital exam not performed since complaints not related. Rectal: Rectal exam not performed since no symptoms indicated blood loss. Extremities: No cyanosis or clubbing. Musculoskeletal: No overt joint deformity. Neurological: Moves all 4 extremities. No myoclonus. Urinary Catheter Management: Lim: Cath Placed During This Visit: yes Reason for Continuing Indwelling Catheter: Accurate Measurement of Urinary Output in Critically Ill Patients Urinary Catheter Date of Insertion: 11/07/22 Urinary Catheter Time of Insertion: 19:00 Data 11/08/22 05:42 11/08/22 11:34 A&P Assessment and plan (1) Chronic hyponatremia: Acute on chronic hyponatremia. Baseline sodium seems to be around 130. Currently 124. Suspect multifactoral. Currently most likely in setting of mild congestive heart failure. Switch Lasix to 40 mg oral daily. Continue to monitor sodium level every 6 hourly. Urine sodium found to be 34. (2) Heart failure: Acute on chronic diastolic congestive heart failure. Last echocardiogram showed an EF of around 50% with grade 2 diastolic dysfunction with mild to moderate MR. Second proper charting, daily weights. IV Lasix 40 mg oral daily. Fluid restriction up to 1500 cc. (3) Coronary artery disease: No active chest pain. Qualifiers: Coronary Disease-Associated Artery/Lesion type: [place] artery [place] vs. transplanted heart: [place] heart Associated angina: without angina Qualified Code(s): I25.10 - Atherosclerotic heart disease of [place] coronary artery without angina pectoris (4) Hypertension: Goal blood pressure less than 140/90 mmHg. Multiple antihypertensives at home. Takes clonidine 0.1 twice daily, felodipine 10 mg oral daily, hydralazine 25 mg 3 times daily, Imdur 60 mg oral daily, valsartan 160 mg twice daily. Increase hydralazine to 50 mg 3 times daily. Will uptitrate as per goal blood pressures. Qualifiers: Hypertension type: essential hypertension Qualified Code(s): I10 - Essential (primary) hypertension (5) Chronic renal insufficiency: Medical reconciliation done for nephrotoxic drugs. Creatinine back to baseline. (6) Hyperkalemia: Telemetry Hold off on home dose potassium. Continue to monitor daily. Plan DVT ppx: Heparin Code status: Full Code Regular diet. Attestations Medical Necessity Statement*: Requires further hospitalization for management of acute on chronic hyponatremia, congestive heart failure. Changed to inpatient as patient requires regular every 6 hours sodium level checks. Diagnoses Chronic hyponatremia E87.1 Heart failure I50.9 Coronary artery disease I25.10 Coronary Disease-Associated Artery/Lesion type: [place] artery [place] vs. transplanted heart: [place] heart Associated angina: without angina Hypertension I10 Hypertension type: essential hypertension Chronic renal insufficiency N18.9 Hyperkalemia E87.5
--- NOTE | 2022-11-08 17:15 | ECG_ITS ---
[facility] Test Date: 2022-11-08 Pat Name: Kati Chris Department: Room: 107 Gender: Female Residence Hall Director: : 1940 Requested By: Amari Avila Order Number: [id number] Betty MD: Brian Ocasio M.D. Measurements Intervals [place] Rate: 75 P: 46 AL: 156 QRS: -42 QRSD: 162 T: 105 QT: 420 QTc: 471 Interpretive Statements SINUS RHYTHM WITH OCCASIONAL SUPRAVENTRICULAR PREMATURE COMPLEXES LEFT AXIS DEVIATION [QRS AXIS < -30] LEFT BUNDLE BRANCH BLOCK [120+ ms QRS DURATION, 80+ ms Q/S IN V1/V2, 85+ ms R IN I/aVL/V5/V6] Compared to ECG 11/01/2022 17:59:21 Left-axis deviation now present Ectopic atrial rhythm no longer present Electronically Signed On 11-09-2022 0:15:24 CDT by Brian Ocasio M.D. [id number]
[2022-11-08 17:33] LABS: Sodium 122 mmol/L (136-145)
[2022-11-08 23:03] LABS: Sodium 122 mmol/L (136-145)
[2022-11-09] VITALS (15 sets, daily range): BP systolic 128–176; BP diastolic 49–81; PULSE 58–117; RESP 14–26; TEMP 36.6–37.1; O2SAT 96–99
[2022-11-09] MEDS: HYDROcodone-acetaminophen 10-325 mg Tablet 1 TAB PO ×5 (03:47→22:02)
[2022-11-09] MEDS: levothyroxine 88 mcg Tablet PO (03:48)
[2022-11-09 04:15] LABS: Basophils # 0.1 10^3/uL (0.0-0.1); Basophils % 0.8 %; Eosinophils # 0.2 10^3/uL (0.0-0.8); Eosinophils % 3.7 %; Hemoglobin 8.3 g/dL (11.5-15.3); Lymphocytes # 0.9 10^3/uL (0.8-4.8); Lymphocytes % 14.4 %; Mean Corpuscular HGB Conc 31.9 g/dL (30.0-36.0); Mean Corpuscular Hemoglobin 31.2 pg (28.0-34.0); Mean Corpuscular Volume 97.7 fl (81-99); Mean Platelet Volume 10.6 fL (7.4-10.4); Monocytes # 0.7 10^3/uL (0.2-0.9); Monocytes % 10.8 %; Neutrophils # 4.41 10^3/uL (1.8-7.7); Nucleated Red Blood Cells % 0 %; Platelet Count 183 10^3/cmm (130-400); Red Blood Count 2.66 10^6/uL (4.1-5.3); Red Cell Distribution Width 14.8 % (12.1-15.1); White Blood Count 6.3 10^3/uL (4.0-10.0)
[2022-11-09 04:45] LABS: Alanine Aminotransferase 9 U/L (0-33); Albumin Level 2.8 g/dL (3.5-5.2); Alkaline Phosphatase 66 U/L (35-105); Anion Gap 14.1 (5-19); Aspartate Amino Transferase 15 U/L (0-32); Blood Urea Nitrogen 28 mg/dL (8-23); Calcium 8.2 mg/dL (8.5-10.5); Carbon Dioxide 28 mmol/L (22-29); Chloride 88 mmol/L (98-107); Globulin 2.8 g/dL (1.3-4.6); Glucose 101 mg/dL (65-115); Osmolality Calculated 266 mOsm/kg (285-295); Potassium 5.1 mmol/L (3.5-5.1); Sodium 125 mmol/L (136-145); Total Bilirubin 0.3 mg/dL (0.15-1.2); Total Protein 5.6 g/dL (6.6-8.7)
[2022-11-09] MEDS: heparin 5,000 unit/mL INJ 1 mL 5000 UNIT SUBCUT ×2 (05:16→17:51)
[2022-11-09] MEDS: gabapentin 100 mg Capsule PO ×2 (08:00→17:51)
[2022-11-09] MEDS: tamsulosin 0.4 mg Capsule PO ×2 (08:00→17:51)
[2022-11-09] MEDS: magnesium oxide 400 mg tablet PO ×2 (08:00→17:51)
[2022-11-09] MEDS: FUROsemide 40 mg Tablet PO ×2 (08:00→17:51)
[2022-11-09] MEDS: sodium chloride 1 gm Tablet PO ×3 (08:01→22:02)
[2022-11-09] MEDS: isosorbide mononitrate ER 60 mg Tablet PO (08:13)
[2022-11-09] MEDS: losartan 50 mg Tablet PO ×2 (09:29→17:46)
[2022-11-09] MEDS: cloNIDine 0.1 mg Tablet PO (09:29)
[2022-11-09] MEDS: hyDRALAzine 50 mg Tablet PO ×3 (09:30→22:02)
--- NOTE | 2022-11-09 09:32 | PC.CHAP ---
Pastoral Care Encounter/Spiritual Assessment Type of Contact [] Declined sandblaster glass visit [] Patient/Family/Request visit [] Outpatient visit [] Follow-up visit [] Physician referral [] Code/Alert [x] Routine visit [] Staff referral [] Actively dying [] Patient sleeping [x] Family support [] [] Out of room [] Palliative care [] [] Receiving care in room [] Pre-surgical visit [] Trauma [] Long length of stay [] ICU visit [] Other: Relational/Emotional Strength [x] Patient feels connected with others/family/visitors/staff [] Distress [] Loneliness/isolation [] Abandonment Spirituality of Patient [x] Person of Radha [] Attends Mormonism of their Radha [x] Believes in Prayer [] Reads Bible or Jew materials [] There are Spiritual issues to be addressed Bottle House Cleaners Supervisor Interventions [x] Prayer [] Active listening [] Non-anxious presence [x] Spiritual/emotional support [] Crisis/trauma care [] Spiritual counseling [] Bereavement support [] Provided bereavement packet [] Provided Bible/devotional materials [] Provided toy/stuffed animal, coloring book to patient or family member [] Provided Communion [] Anointing/[employer] [] Salvation [x] Completed spiritual assessment [] Other: Impact on Illness or Injury [] Angry [] Fearful [] Anxious [] Often cries [] Exhaustion [] Unable to work [] Unable to attend holiness [] Unable to walk/stand [] Unable to read [] Unable to drive [] Unable to eat/drink [] Unable to sleep [] Unable to be with family [] Patient intubated [] Other: Summary Time spent with patient 5 min
[2022-11-09 11:02] LABS: Sodium 125 mmol/L (136-145)
--- NOTE | 2022-11-09 14:01 | PM.PN ---
Subjective Subjective: No acute vents overnight. Patient seen with spouse at bedside. Patient states he is feeling sleepy. Most likely secondary to her blood pressures being low. She states she is used to blood pressures being more than 170 usually. We discussed in detail her blood pressures to be better controlled for her to prevent going into heart failure again. Discussed for now goal blood pressure should be around 150 systolic. Patient is disappointed that she is not being discharged today but is agreeable to stay. During examination patient is tearful. States she likes being at the intermediate and does not like being in the hospital. She is agreeable to stay. Spouse is agreeable for patient to stay as well. All the questions were answered. She is agreeable to increase in antihypertensives. Vitals/I&O/Wt Last Vital Signs Temp 97.9 F 11/09/22 08:00 Pulse 117 H 11/09/22 12:00 Resp 21 H 11/09/22 12:00 BP 158/62 11/09/22 12:00 Pulse Ox 99 11/09/22 08:00 O2 Del Method Nasal Cannula 11/09/22 12:00 O2 Flow Rate 1 11/09/22 12:00 11/08/22 11/09/22 11/09/22 22:59 06:59 14:59 Intake Total 350 / 590 Output Total 1150 / 1550 350 / 1900 Balance -800 / -960 -350 / -1310 Physical Exam Narrative: General: Patient is frail. Ill appearing, tearful. Head: Temporal wasting. Neck: No JVD. Cardiovascular: No gallops. No murmurs. 3-4+ pitting edema bilaterally. Lungs: Adequate air movement. No wheezing. No Crackles. Skin: No jaundice. No rashes. Abdomen: Normal bowel sounds, abdomen soft and nontender. Genito Urinary: Genital exam not performed since complaints not related. Rectal: Rectal exam not performed since no symptoms indicated blood loss. Extremities: No cyanosis or clubbing. Musculoskeletal: No overt joint deformity. Neurological: Moves all 4 extremities. No myoclonus. Urinary Catheter Management: Lim: Cath Placed During This Visit: yes Reason for Continuing Indwelling Catheter: Accurate Measurement of Urinary Output in Critically Ill Patients Urinary Catheter Date of Insertion: 11/07/22 Urinary Catheter Time of Insertion: 19:00 Data 11/09/22 03:43 11/09/22 10:30 A&P Assessment and plan (1) Chronic hyponatremia: Acute on chronic hyponatremia. Baseline sodium seems to be around 130. Slight improvement up to 125 today. Suspect multifactoral. Currently most likely in setting of mild congestive heart failure. Continue with Lasix to 40 mg oral twice daily. Continue to monitor sodium level every 12 hourly. Urine sodium found to be 34. Serum osmolality improving. (2) Heart failure: Acute on chronic diastolic congestive heart failure. Last echocardiogram showed an EF of around 50% with grade 2 diastolic dysfunction with mild to moderate MR. Strict input/output charting, daily weights. Lasix as above. Fluid restriction up to 1200 cc. (3) Coronary artery disease: No active chest pain. Qualifiers: Coronary Disease-Associated Artery/Lesion type: [place] artery [place] vs. transplanted heart: [place] heart Associated angina: without angina Qualified Code(s): I25.10 - Atherosclerotic heart disease of [place] coronary artery without angina pectoris (4) Hypertension: Goal blood pressure less than 150/90 mmHg. Patient states usually blood pressures have been running around 170 for many years. Reluctant to increase antihypertensives too much. States on increasing medication she becomes very sleepy and tired. Multiple antihypertensives at home. Takes clonidine 0.1 twice daily, felodipine 10 mg oral every afternoon, hydralazine 25 mg 3 times daily, Imdur 60 mg oral daily, valsartan 160 mg twice daily. Increase hydralazine to 50 mg 3 times daily. Will uptitrate as per goal blood pressures. Qualifiers: Hypertension type: essential hypertension Qualified Code(s): I10 - Essential (primary) hypertension (5) Chronic renal insufficiency: Medical reconciliation done for nephrotoxic drugs. Creatinine back to baseline. (6) Hyperkalemia: Telemetry Hold off on home dose potassium. Continue to monitor daily. Plan DVT ppx: Heparin Code status: Full Code Regular diet. Discharge plan: Plan to discharge in from intermediate within next 24 hours sodium continues to improve and blood pressures remained stable. Patient is agreeable to stay for 1 more day. Attestations Medical Necessity Statement*: Requires further hospitalization for management of acute on chronic hyponatremia, diastolic congestive heart failure while multiple antihypertensives were adjusted for management of hypertensive urgency Coding Level of Care Code Acute Code for [facility] Diagnoses Chronic hyponatremia E87.1 Heart failure I50.9 Coronary artery disease I25.10 Coronary Disease-Associated Artery/Lesion type: [place] artery [place] vs. transplanted heart: [place] heart Associated angina: without angina Hypertension I10 Hypertension type: essential hypertension Chronic renal insufficiency N18.9 Hyperkalemia E87.5
--- NOTE | 2022-11-09 14:45 | PC.NURSE ---
Patient is complaining of increased shortness of breath. Notified physician. Order to put back to 2l given. Patient put back on 2l. Will continue to monitor.
[2022-11-09 16:36] LABS: Blood Urea Nitrogen 27 mg/dL (8-23); Calcium 8.5 mg/dL (8.5-10.5); Carbon Dioxide 30 mmol/L (22-29); Chloride 89 mmol/L (98-107); Glucose 134 mg/dL (65-115); Osmolality Calculated 269 mOsm/kg (285-295); Sodium 126 mmol/L (136-145)
[2022-11-09] MEDS: alum-mag-hydroxide-sime 30 mL UDC PO (18:15)
[2022-11-09] MEDS: ALPRAZolam 0.5 mg Tablet 0.25 MG PO (22:02)
--- NOTE | 2022-11-09 22:25 | ECG_ITS ---
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 Measurements Intervals [place] Rate: 96 P: 49 ND: 157 QRS: -49 QRSD: 166 T: 86 QT: 379 QTc: 480 Interpretive Statements SINUS RHYTHM WITH OCCASIONAL VENTRICULAR PREMATURE COMPLEXES POSSIBLE LEFT ATRIAL ENLARGEMENT [-0.1mV P-WAVE IN V1/V2] LEFT AXIS DEVIATION [QRS AXIS < -30] LEFT BUNDLE BRANCH BLOCK [120+ ms QRS DURATION, 80+ ms Q/S IN V1/V2, 85+ ms R IN I/aVL/V5/V6] Compared to ECG 11/08/2022 17:19:39 Ventricular premature complex(es) now present Electronically Signed On 11-10-2022 18:01:03 CDT by Esdon Ahumada M.D. [id number]
--- NOTE | 2022-11-09 22:29 | PC.NURSE ---
Patient is c/o increased SOB with chest pain. Gave hydrodone and xanax as ordered. RT has assessed. Patient is clear with SpO2 at 98% on 2L NC. She appears to be very anxious. Informed Dr Meeks. Received order to obtain EKG.
[2022-11-10] VITALS (18 sets, daily range): BP systolic 143–169; BP diastolic 64–84; PULSE 66–106; RESP 11–36; TEMP 36.4–37.4; O2SAT 95–100
--- NOTE | 2022-11-10 00:28 | PC.NURSE ---
Speaking with patient's daughter and she informed me that patient has not slept much in about 5 weeks. Patient stated, I am afraid I won't wake up if I go to sleep. Daughter stated, I do believe she is very anxious but she does not want to take any medications for depression or anxiety. Instructed patient and daughter regarding the use of alpralozam for sleep and anxiety. Both verbalized understanding. However patient will require more education regarding anxiety and possible effects due to increased anxiety and sleep deprivation.
[2022-11-10] MEDS: levothyroxine 88 mcg Tablet PO (05:17)
[2022-11-10] MEDS: HYDROcodone-acetaminophen 10-325 mg Tablet 1 TAB PO ×4 (05:17→22:39)
[2022-11-10 06:13] LABS: Basophils % 0.6 %; Eosinophils # 0.1 10^3/uL (0.0-0.8); Eosinophils % 2.3 %; Hematocrit 26.3 % (37.0-47.0); Hemoglobin 8.7 g/dL (11.5-15.3); Lymphocytes # 0.8 10^3/uL (0.8-4.8); Lymphocytes % 12.6 %; Mean Corpuscular HGB Conc 33.1 g/dL (30.0-36.0); Mean Corpuscular Hemoglobin 32.1 pg (28.0-34.0); Mean Platelet Volume 11.3 fL (7.4-10.4); Monocytes # 0.6 10^3/uL (0.2-0.9); Monocytes % 10.2 %; Neutrophils # 4.59 10^3/uL (1.8-7.7); Nucleated Red Blood Cells % 0 %; Platelet Count 187 10^3/cmm (130-400); Red Blood Count 2.71 10^6/uL (4.1-5.3); Red Cell Distribution Width 14.9 % (12.1-15.1); White Blood Count 6.2 10^3/uL (4.0-10.0)
[2022-11-10 06:53] LABS: Alanine Aminotransferase 8 U/L (0-33); Albumin Level 2.8 g/dL (3.5-5.2); Alkaline Phosphatase 66 U/L (35-105); Blood Urea Nitrogen 25 mg/dL (8-23); Calcium 8.5 mg/dL (8.5-10.5); Carbon Dioxide 31 mmol/L (22-29); Chloride 88 mmol/L (98-107); Globulin 2.5 g/dL (1.3-4.6); Glucose 93 mg/dL (65-115); Osmolality Calculated 266 mOsm/kg (285-295); Sodium 126 mmol/L (136-145); Total Bilirubin 0.3 mg/dL (0.15-1.2); Total Protein 5.3 g/dL (6.6-8.7)
[2022-11-10 06:58] LABS: Anion Gap 12.2 (5-19); Aspartate Amino Transferase 17 U/L (0-32)
[2022-11-10 06:59] LABS: Potassium 5.2 mmol/L (3.5-5.1)
[2022-11-10] MEDS: isosorbide mononitrate ER 60 mg Tablet PO (08:50)
[2022-11-10] MEDS: sodium chloride 1 gm Tablet PO ×2 (08:50→16:02)
[2022-11-10] MEDS: FUROsemide 40 mg Tablet PO (08:50)
[2022-11-10] MEDS: gabapentin 100 mg Capsule PO (08:50)
[2022-11-10] MEDS: bisacodyl 5 mg Tablet 10 MG PO (08:50)
[2022-11-10] MEDS: hyDRALAzine 50 mg Tablet PO ×3 (08:51→21:35)
[2022-11-10] MEDS: losartan 50 mg Tablet PO (08:51)
[2022-11-10] MEDS: tamsulosin 0.4 mg Capsule PO ×2 (08:51→18:13)
[2022-11-10] MEDS: magnesium oxide 400 mg tablet PO (08:51)
--- NOTE | 2022-11-10 10:23 | PC.NURSE ---
Patient extremely anxious saying she needs something. Her breathing is labored and she is diaphoretic. We had her return to her bed from her chair and she is short of breath but was able to return to her bed without issue. Messaged Dr. Avila to let him know. Increasing time at bedside with patient for close observation.
[2022-11-10 10:31] LABS: Glucose Point of Care 186 mg/dL (70-110)
--- NOTE | 2022-11-10 10:55 | PC.NURSE ---
Patient's O2 increased from 2 to 4L due to SpO2 <90%. Patient is complaining of not being able to get enough air and is short of breath. Dr. Avila notified.
--- NOTE | 2022-11-10 11:11 | XRR_ITS ---
PROCEDURE INFORMATION: Exam: XR Chest Exam date and time: 11/10/2022 10:22 AM Age: 82 years old Clinical indication: Dyspnea and shortness of breath TECHNIQUE: Imaging protocol: Radiologic exam of the chest. Views: 1 view. COMPARISON: CR (CHEST, ) 10/30/2022 1:18 AM FINDINGS: Lungs: Extensive ill-defined opacity in the right mid to lower lung. Mild ill-defined opacity in the left lower lung. Pleural spaces: The right lateral costophrenic sulcus is blunted. No pneumothorax. Heart/Mediastinum: The cardiac silhouette is partially obscured. Bones/joints: Bones are unremarkable. XR/XR chest 1V 19320 IMPRESSION: 1. Progressive opacity in the right mid to lower lung since 10/30/2022. Possible infection, edema, atelectasis, or some combination thereof. 2. Progressive opacity in the left lower lung since 10/30/2022. Possible infection, edema, atelectasis, or some combination thereof. 3. Increased size of a right pleural effusion since 10/30/2022. 4. New left pleural effusion since 10/30/2022.
[2022-11-10] MEDS: FUROsemide 10 mg/mL SDV 4mL 40 MG IVP ×2 (11:24→21:52)
--- NOTE | 2022-11-10 11:25 | PC.NURSE ---
Dr. Avila to see patient. Updated on patient's current state and course of events. New orders noted and implemented.
[2022-11-10 11:41] LABS: ABG PH Result 7.22 (7.35-7.45); Arterial Blood Gas Hematocrit 33.1 % (37-47); Base Excess ABG 1.3 mmol/L (-2.0-2.0); Blood Gas Sample Site Brachial, right; Blood Gas Sample Type Arterial; HCO3 ABG 30.4 mmol/L (22-26); Ionized Calcium Level - ABG 1.2 mmol/L (1.1-1.4); Methemoglobin 0.9 % (0.4-1.5); Oxygen Device NC; Oxygen Saturation ABG 90.8; PO2 ABG 68.4 mmHg (80.0-100.0); Potassium Level - ABG 4.2 mmol/L (3.5-5.0); Total Hemoglobin 10.8 g/dL (12-16)
[2022-11-10 12:06] LABS: D Dimer 3.81 ug/mIFEU (0-0.59)
--- NOTE | 2022-11-10 12:09 | ECG_ITS ---
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 Measurements Intervals [place] Rate: 108 P: 35 HI: 132 QRS: 68 QRSD: 146 T: -88 QT: 389 QTc: 523 Interpretive Statements SINUS TACHYCARDIA POSSIBLE LEFT ATRIAL ENLARGEMENT [-0.1mV P-WAVE IN V1/V2] LEFT BUNDLE BRANCH BLOCK Compared to ECG 11/09/2022 22:25:37 Intraventricular conduction delay now present Sinus rhythm no longer present Ventricular premature complex(es) no longer present Electronically Signed On 11-10-2022 17:47:23 CDT by Edson Ahumada M.D. [id number]
[2022-11-10] MEDS: enoxaparin 60 mg/0.6 mL Syringe SUBCUT ×2 (12:21→21:52)
[2022-11-10 12:32] LABS: Troponin(5th) Baseline 156 ng/L (0-10)
--- NOTE | 2022-11-10 12:36 | PC.NURSE ---
Dr. Avila at bedside. Trop level reported.
[2022-11-10] MEDS: aspirin 300 mg Supp PR (12:58)
[2022-11-10] MEDS: citalopram 20 mg Tablet 30 MG PO (13:00)
--- NOTE | 2022-11-10 13:22 | ECG_ITS ---
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 Measurements Intervals [place] Rate: 97 P: 49 NE: 159 QRS: 30 QRSD: 174 T: 81 QT: 399 QTc: 508 Interpretive Statements SINUS RHYTHM LEFT BUNDLE BRANCH BLOCK [120+ ms QRS DURATION, 80+ ms Q/S IN V1/V2, 85+ ms R IN I/aVL/V5/V6] Compared to ECG 11/09/2022 22:25:37 Ventricular premature complex(es) no longer present Left-axis deviation no longer present Electronically Signed On 11-10-2022 17:56:30 CDT by Edson Ahumada M.D. [id number]
--- NOTE | 2022-11-10 14:00 | PC.NURSE ---
Patient resting in bed with BiPAP on at this time.
[2022-11-10 14:34] LABS: Troponin 5 2HR 195.2 ng/L (0-10); Troponin 5 2HR Delta 39.2 ABS# (0-10)
--- NOTE | 2022-11-10 17:09 | ECG_ITS ---
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 Measurements Intervals [place] Rate: 93 P: 54 AK: 160 QRS: 7 QRSD: 154 T: 74 QT: 391 QTc: 489 Interpretive Statements SINUS RHYTHM POSSIBLE LEFT ATRIAL ENLARGEMENT [-0.1mV P-WAVE IN V1/V2] LEFT BUNDLE BRANCH BLOCK [120+ ms QRS DURATION, 80+ ms Q/S IN V1/V2, 85+ ms R IN I/aVL/V5/V6] Compared to ECG 11/10/2022 14:21:17 No significant changes Electronically Signed On 11-10-2022 17:55:11 CDT by Edson Ahumada M.D. [id number]
--- NOTE | 2022-11-10 17:39 | P.PN_ITS ---
Subjective Subjective: Patient seen multiple times in the day today. Overnight patient was a little restless for which EKG was done which was within normal limits. Patient was given Xanax after which she slept well. Today morning patient was feeling a lot better and plan was to discharge. 1 hour prior to discharge patient was getting from bed to chair after having a bowel movement she started feeling diaphoretic and difficulty in breathing. Patient was mildly tachycardic with saturation on 4 L of oxygen supplementation down to 88. ABG was done which showed patient to be respiratory acidosis, hypercapnic with mild hypoxia and placed on BiPAP. Troponin cycle was done which is consistent with possible non-ST elevation HI. Patient was given IV Lasix with concerns for congestive heart failure. Cardiology was consulted. Goals of care discussions were again done in detail. Patient continued to state that she wants to go back to [facility] as soon as possible and does not want to stay for hospital for even 1 more minute. Both myself and patient's at bedside try to convince patient in detail to stay for further work-up and management. On discussing about goals of care and the fact that if she goes to [facility] right now she is most likely going to she stated she would want to live and wanted to eat what ever possible to keep her alive. She wants to remain full code. Patient was confused and decision was made to continue treatment and she remain full code. CODE STATUS discussed in detail with patient's spouse and daughter at bedside. They are both agreeable. Vitals/I&O/Wt Last Vital Signs Temp 97.6 F 11/10/22 12:00 Pulse 92 11/10/22 16:00 Resp 22 H 11/10/22 16:00 BP 155/79 11/10/22 16:00 Pulse Ox 97 11/10/22 16:00 O2 Del Method BiPAP 11/10/22 16:00 O2 Flow Rate 2 11/10/22 08:08 FiO2 45 11/10/22 16:00 11/10/22 11/10/22 11/10/22 06:59 14:59 22:59 Intake Total 250 / 250 Output Total 525 / 1375 375 / 375 Balance -525 / -568 -125 / -125 Physical Exam Narrative: General: Patient is frail. Chronically sick appearing, anxious, at start was having difficulty in breathing which improved after being on BiPAP. Head: Temporal wasting. Neck: No JVD. Cardiovascular: No gallops. No murmurs. 3-4+ pitting edema bilaterally. Lungs: Adequate air movement. No wheezing. No Crackles. Skin: No jaundice. No rashes. Abdomen: Normal bowel sounds, abdomen soft and nontender. Genito Urinary: Genital exam not performed since complaints not related. Rectal: Rectal exam not performed since no symptoms indicated blood loss. Extremities: No cyanosis or clubbing. Musculoskeletal: No overt joint deformity. Neurological: Moves all 4 extremities. No myoclonus. Urinary Catheter Management: Lim: Cath Placed During This Visit: yes Reason for Continuing Indwelling Catheter: Acute Urinary Retention or Obstruction Urinary Catheter Date of Insertion: 11/07/22 Urinary Catheter Time of Insertion: 19:00 Data 11/10/22 05:11 11/10/22 05:11 A&P Assessment and plan (1) Respiratory failure with hypoxia and hypercapnia: Appreciate chest x-ray. D-dimer mildly elevated to 3.4. Check CTA. Patient already on full dose Lovenox. Check respiratory viral panel. Check sputum culture. Hold off on antibiotics for now. Depending on the CT result we will plan on antibiotics. Start on DuoNebs every 6 hour, budesonide twice daily. (2) NSTEMI (non-ST elevated myocardial infarction): Cycle troponin. Baseline 156 with trending up in 2 hours. EKG appreciated. Baseline LBBB. Switch from prophylactic heparin to Lovenox at therapeutic dose at 1 mg/kg body weight every 12 hourly. Aspirin 324 mg one-time followed by 81 mg daily. Appreciate recent A1c and lipid panel. We will consult cardiology for further recommendations. We did discuss in detail with the patient and patient's family at bedside that currently patient is critically sick and needs to be more euvolemic before going for cardiac angiogram. They verbalized understanding. Limited echocardiogram for ejection fraction. (3) Heart failure: Acute on chronic diastolic congestive heart failure. Last echocardiogram showed an EF of around 50% with grade 2 diastolic dysfunction with mild to moderate MR. Strict input/output charting, daily weights. IV Lasix 40 mg twice daily. Fluid restriction up to 1200 cc. (4) Chronic hyponatremia: Acute on chronic hyponatremia. Baseline sodium seems to be around 130. Continues to improve gradually. Suspect multifactoral. Currently most likely in setting of mild congestive heart failure. Lasix as above. Repeat BMP in evening. Urine sodium found to be 34. Serum osmolality improving. (5) Hypertension: Goal blood pressure less than 150/90 mmHg. Patient states usually blood pressures have been running around 170 for many years. Reluctant to increase antihypertensives too much. States on increasing medication she becomes very sleepy and tired. Multiple antihypertensives at home. Takes clonidine 0.1 twice daily, felodipine 10 mg oral every afternoon, hydralazine 25 mg 3 times daily, Imdur 60 mg oral daily, valsartan 160 mg twice daily. Continue with hydralazine to 50 mg 3 times daily. Continue all other medications at home dose. Holding off on clonidine. If blood pressures rise up we will plan to go up on the dose of Imdur. Blood pressures currently at goal. Qualifiers: Hypertension type: essential hypertension Qualified Code(s): I10 - Essential (primary) hypertension (6) Chronic renal insufficiency: Medical reconciliation done for nephrotoxic drugs. Creatinine back to baseline. (7) Hyperkalemia: Telemetry Hold off on home dose potassium. Continue to monitor daily. (8) Coronary artery disease: Qualifiers: Associated angina: without angina Coronary Disease-Associated Artery/Lesion type: [place] artery [place] vs. transplanted heart: [place] heart Qualified Code(s): I25.10 - Atherosclerotic heart disease of [place] coronary artery without angina pectoris Plan Anxiety: Patient continues to remain anxious. Xanax 0.25 mg at bedtime as needed. Start on Celexa 30 mg oral daily. DVT ppx: Full dose Lovenox will suffice as DVT prophylaxis. Code status: Reconfirmed with the patient and patient's spouse at bedside. Wants to remain full code. Regular diet. Discharge plan: Plan is to discharge back to alf once medically stable. Patient has agreed to stay in the hospital till the evening for now. Family at bedside. Attestations Medical Necessity Statement*: Patient requires further hospitalization for management of non-ST elevation HI in setting of congestive heart failure leading to hypoxic and hypercapnic respiratory failure requiring BiPAP ventilation, acute on chronic hyponatremia Coding Level of Care Code Critical Care >/= 30 minutes Critical care time (in minutes): 80 The high probability of a clinically significant, sudden or life threatening deterioration, as referenced in this documentation, required my full and direct attention, intervention and personal management. The critical care time shown is in addition to time spent performing any reported separately billable procedures and includes the following: [x] Data and vital sign review and interpretation [x ] Patient assessment, examination and intervention [x] Medication orders and management [x] Patient/Family updates as able [x] Care Coordination and Documentation. Diagnoses Respiratory failure with hypoxia and hypercapnia J96.91; J96.92 NSTEMI (non-ST elevated myocardial infarction) I21.4 Heart failure I50.9 Chronic hyponatremia E87.1 Hypertension I10 Hypertension type: essential hypertension Chronic renal insufficiency N18.9 Hyperkalemia E87.5 Coronary artery disease I25.10 Associated angina: without angina Coronary Disease-Associated Artery/Lesion type: [place] artery [place] vs. transplanted heart: [place] heart
--- NOTE | 2022-11-10 17:40 | PM.CONSULT ---
Providers/Reason For Consult Consulting Physician/Specialty*: ALLYSON Ocasio MD/cardiology Reason for Consult*: Patient with acute onset of shortness of breath/swelling; elevated troponin T Requesting Physician: Dr. Avila Attending Physician: Amari Avila MD Primary Care Provider: Doe Bui MD History of Present Illness History of Present Illness Kati Chris is a 82 year old female with a history of coronary artery disease, status post PCI, he is admitted to hospital with the hyponatremia and generalized weakness. She apparently had multiple recent hospital admissions for hyponatremia. Approximately 3 months ago, she was in the hospital with pneumonia. Episodes of hyponatremia apparently started after this. Her sodium level is returning almost back to the baseline. Apparently she was in the process of being discharged home today. Early this afternoon, she was straining for stools. The stool had to be disimpacted. Right after the bathroom, she became very diaphoretic and short of breath. She had a features of acute pulm edema. She was placed on BiPAP. Currently her breathing is improving. Her troponin T went up to 156 and the 2-hour delta was around 40. Her EKG showed sinus rhythm with a left bundle branch block pattern. Diffuse ST-T changes. Possible left atrial enlargement. Her sodium today was 126. Her hemoglobin is around 8. She has a chronic anemia. She also is known to have chronic renal insufficiency. The patient is on BiPAP and is not able to get a detailed history. Her at the bedside is not very helpful in giving details. The information is from the medical records, medical staff and from the patient. The patient has not had any significant chest pain or cardiac symptoms. She has a history of recurrent decompensated heart failure. She had a Myocardial perfusion imaging 2020 which was essentially unremarkable. Her LV ejection fraction was anywhere from 40 to 50% by echocardiogram. She has not had a fever, chills or cough. She is mainly complaining of epigastric discomfort. This is similar to what she had in the past prior to the myocardial infarction. Review of Systems Narrative: CONSTITUTIONAL: No fever or chills. EYES: No blurring of vision or other visual disturbances lately. ENT: No hoarseness of voice, auditory disturbances or sore throat. CARDIOVASCULAR: As mentioned above. RESPIRATORY: Respiratory distress as mentioned above GASTROINTESTINAL: Has some epigastric discomfort GENITOURINARY: No dysuria or hematuria. INTEGUMENTARY: No skin rashes or history of skin cancer. NEURO: No transient ischemic attacks or amaurosis. PSYCHIATRIC: No history of psychosis or major depression. HEMATOLOGIC: Chronic anemia ENDOCRINE: No history of polyuria or polydipsia. MUSCULOSKELETAL: Dextroscoliosis ALLERGY/IMMUNOLOGY: As mentioned above. Medications/Allergies Home Medications Medication Instructions Recorded Confirmed Last Taken Type hydrocodone 10 mg-acetaminophen 1 tab PO Q4H PRN Pain 30 days #180 09/27/22 11/07/22 11/07/22 Rx 325 mg tablet tabs felodipine 10 mg tablet,extended 10 mg PO DAILY@08 10/08/22 11/07/22 11/07/22 History release 24 hr gabapentin 100 mg capsule 100 mg PO BID 10/08/22 11/07/22 11/07/22 History tamsulosin 0.4 mg capsule 0.4 mg PO BID 10/08/22 11/07/22 11/07/22 History albuterol sulfate 90 mcg/actuation 1 inh inhalation Q6H PRN shortness 10/10/22 11/07/22 Unknown Rx aerosol inhaler of breath or wheezing #8.5 grams ondansetron HCl 4 mg tablet 4 mg PO Q6H PRN nausea and 10/14/22 11/07/22 Unknown Rx vomiting #30 tabs benzonatate 100 mg capsule 100 mg PO TID PRN Cough 10/16/22 11/07/22 Unknown History clonidine HCl 0.1 mg tablet 0.1 mg PO BID #60 tabs 10/27/22 11/07/22 11/07/22 Rx hydralazine 25 mg tablet 25 mg PO TID #90 tabs 10/27/22 11/07/22 11/07/22 Rx lactulose 10 gram/15 mL (15 mL) 10 g (15 mL) PO DAILY PRN 10/29/22 11/07/22 Unknown Rx oral solution constipation #473 mL acetaminophen 325 mg tablet 650 mg PO Q6H PRN Pain 11/07/22 11/07/22 Unknown History (Tylenol) bisacodyl 10 mg rectal suppository 10 mg ID DAILY PRN Constipation 11/07/22 11/07/22 Unknown History (Dulcolax (bisacodyl)) bisacodyl 5 mg tablet,delayed 10 mg PO DAILY PRN Constipation 11/07/22 11/07/22 Unknown History release (Dulcolax (bisacodyl)) furosemide 20 mg tablet 20 mg PO DAILY@11/07/22 11/07/22 11/07/22 History isosorbide mononitrate 60 mg 60 mg PO DAILY@11/07/22 11/07/22 11/07/22 History tablet,extended release 24 hr levothyroxine 88 mcg tablet 88 mcg PO DAILY@11/07/22 11/07/22 11/07/22 History magnesium hydroxide 400 mg/5 mL 30 ml PO .EVERY 72 HOURS PRN if no 11/07/22 11/07/22 Unknown History oral suspension (Milk of Magnesia) bm in 3 days *do not give to renal pts* magnesium oxide 400 mg (241.3 mg 400 mg PO BID 11/07/22 11/07/22 11/07/22 History magnesium) tablet menthol 0.44 %-zinc oxide 20.6 % See Rx Instructions .Route .COMPLEX 11/07/22 11/07/22 11/07/22 History topical ointment (Calmoseptine) potassium chloride 20 mEq 20 meq PO DAILY@11/07/22 11/07/22 11/07/22 History tablet,extended release(part/cryst) (Klor-Con M) sodium phosphates 19 gram-7 118 ml ID DAILY PRN Constipation 11/07/22 11/07/22 Unknown History gram/118 mL enema (Fleet Enema) valsartan 160 mg tablet 160 mg PO BID 11/07/22 11/07/22 11/07/22 History Allergies Allergy/AdvReac Type Severity Reaction Status Date / Time prazosin Allergy Severe ALGY-Difficulty Verified 11/07/22 12:55 Breathing Current Medications Generic Name Dose Route Start Last Admin Trade Name Freq PRN Reason Stop Dose Admin Hydrocodone Bitart/Acetaminophen 1 tab 11/07/22 17:16 11/10/22 08:49 Hydrocodone-Acetaminophen 10-325 Mg Tablet PO 1 tab Q4H PRN Administration Pain Alprazolam 0.25 mg 11/09/22 19:14 11/09/22 22:02 Alprazolam 0.5 Mg Tablet PO 0.25 mg BEDTIME PRN Administration ANXIETY Bisacodyl 10 mg 11/07/22 17:16 11/10/22 08:50 Bisacodyl 5 Mg Tablet PO 10 mg DAILY PRN Administration Constipation Citalopram Hydrobromide 30 mg 11/10/22 11:35 11/10/22 13:00 Citalopram 20 Mg Tablet PO 30 mg DAILY IMMANUEL Administration Enoxaparin Sodium 60 mg 11/10/22 11:45 11/10/22 12:21 Enoxaparin 60 Mg/0.6 Ml Syringe SUBCUT 60 mg Q12H IMMANUEL Administration Gabapentin 100 mg 11/07/22 18:00 11/10/22 08:50 Gabapentin 100 Mg Capsule PO 100 mg BID IMMANUEL Administration Hydralazine HCl 50 mg 11/08/22 15:00 11/10/22 16:02 Hydralazine 50 Mg Tablet PO 50 mg TID IMMANUEL Administration Isosorbide Mononitrate 60 mg 11/08/22 08:00 11/10/22 08:50 Isosorbide Mononitrate Er 60 Mg Tablet PO 60 mg DAILY@08 IMMANUEL Administration Levothyroxine Sodium 88 mcg 11/08/22 05:00 11/10/22 05:17 Levothyroxine 88 Mcg Tablet PO 88 mcg DAILY@05 IMMANUEL Administration Losartan Potassium 50 mg 11/07/22 18:00 11/10/22 08:51 Losartan 50 Mg Tablet PO 50 mg BID IMMANUEL Administration Magnesium Oxide 400 mg 11/07/22 18:00 11/10/22 08:51 Magnesium Oxide 400 Mg Tablet PO 400 mg BID IMMANUEL Administration Sodium Chloride 1 gm 11/07/22 21:00 11/10/22 16:02 Sodium Chloride 1 Gm Tablet PO 1 gm TID IMMANUEL Administration Tamsulosin HCl 0.4 mg 11/07/22 18:00 11/10/22 08:51 Tamsulosin 0.4 Mg Capsule PO 0.4 mg BID IMMANUEL Administration PFSH Acute PFSH: Medical History (Updated 11/10/22 @ 18:46 by Brian Ocasio MD) Acute exacerbation of CHF (congestive heart failure) Acute hyponatremia Anemia Aortic stenosis Cervical radiculopathy Chronic hyponatremia Chronic hyponatremia Chronic low back pain Has had recent back surgery Chronic respiratory failure with hypoxia Community acquired pneumonia Congestive heart failure Corneal abrasion, right Coronary artery disease Degenerative scoliosis Dehydration DNR (do not resuscitate) Elevated troponin Encounter for pre-operative cardiovascular clearance Facet arthritis, degenerative, lumbar spine Fluid overload Generalized weakness History of MD (myocardial infarction) 2018--had coronary artery stent placed Hypertension Chronic hypertension diagnosed at the age of 31. Follows up with cardiology Dr. Castellanos as well as her primary care provider. Hypertensive urgency Hypo-osmolar hyponatremia Serum osmolarity 255, urine osmolality 288, urine sodium 73, hypervolemic hyponatremia Hypoxia Lumbar stenosis with neurogenic claudication Malaise and fatigue Nausea No pertinent past medical history Denies diabetes, asthma, seizures, DVT/PE PCP: Dr. Bui Peripheral neuropathy Pneumonia Right lower lobe pneumonia Uncontrolled hypertension Vaginal prolapse 09/30/2021--grade 3-4 cystocele, grade 3 vault prolapse, grade 1 rectocele Surgical History History of back surgery March 2021--performed by Dr. Nunez at [facility]. History of heart artery stent 2017 after heart attack History of tubal ligation In her mid 30s---done through supra umbilical minilaparotomy incision S/P hysterectomy Vaginal hysterectomy for prolapse performed by Dr. George in 2017. Her ovaries were not removed. Family History Mother Heart disease Hypertension Colon cancer diagnosed in her late 60s Daughter Heart disease Family/Other Breast cancer maternal aunt, age at diagnosis unknown Social History Smoking and tobacco status: never smoked Alcohol intake: never Substance/Drug Use: never Vitals/I&O/Wt Last Vital Signs Temp 97.6 F 11/10/22 12:00 Pulse 92 11/10/22 16:00 Resp 22 H 11/10/22 16:00 BP 155/79 11/10/22 16:00 Pulse Ox 97 11/10/22 16:00 O2 Del Method BiPAP 11/10/22 16:00 O2 Flow Rate 2 11/10/22 08:08 FiO2 45 11/10/22 16:00 11/10/22 11/10/22 11/10/22 06:59 14:59 22:59 Intake Total 250 / 250 Output Total 525 / 1375 375 / 375 Balance -525 / -568 -125 / -125 Physical Exam Narrative: GENERAL: The patient is alert, on a BiPAP. HEENT: Moderate pallor. No, icterus or lymphadenopathy.Oral cavity: There are no mucous membrane lesions. NECK: Trachea appears to be central. No masses noted. No JVD or thyromegaly appreciated. RESPIRATORY: Chest is symmetrical. No intercostals muscle retraction or any accessory muscle activation. There is no chest wall tenderness. Breath sounds are heard bilaterally. Few bilateral fine rales in the bases. No evidence of consolidation. BREASTS: Deferred. HEART: The heart sounds are normal. No S3 or S4. No significant murmurs. No pericardial rub ABDOMEN: No vessel pulsations or distention. No tenderness. No organomegaly appreciated. Bowel sounds are normally heard. : Deferred. RECTAL: Deferred. LYMPHATIC: No lymphadenopathy noted in the neck. EXTREMITIES: Trace edema with no cyanosis MUSCULOSKELETAL: No acute joint deformities or swelling SKIN: There are no significant rashes or ecchymosis NEUROPSYCHIATRIC: The patient is alert and oriented x3. Appears to be in a good mood. No tremors or rigidity noted. Urinary Catheter Management: Lim: Cath Placed During This Visit: yes Reason for Continuing Indwelling Catheter: Acute Urinary Retention or Obstruction Urinary Catheter Date of Insertion: 11/07/22 Urinary Catheter Time of Insertion: 19:00 Data 11/10/22 05:11 11/10/22 05:11 Other Labs: Laboratory Last Values WBC 6.2 10^3/uL (4.0-10.0) 11/10/22 05:11 RBC 2.71 10^6/uL (4.1-5.3) L 11/10/22 05:11 Hgb 8.7 g/dL (11.5-15.3) L 11/10/22 05:11 Hct 26.3 % (37.0-47.0) L 11/10/22 05:11 MCV 97.0 fl (81-99) 11/10/22 05:11 MCH 32.1 pg (28.0-34.0) 11/10/22 05:11 MCHC 33.1 g/dL (30.0-36.0) 11/10/22 05:11 RDW 14.9 % (12.1-15.1) 11/10/22 05:11 Plt Count 187 10^3/cmm (130-400) 11/10/22 05:11 MPV 11.3 fL (7.4-10.4) H 11/10/22 05:11 Neut % (Auto) 74.0 % 11/10/22 05:11 Lymph % (Auto) 12.6 % 11/10/22 05:11 [place] % (Auto) 10.2 % 11/10/22 05:11 Eos % (Auto) 2.3 % 11/10/22 05:11 Baso % (Auto) 0.6 % 11/10/22 05:11 Neut # (Auto) 4.59 10^3/uL (1.8-7.7) 11/10/22 05:11 Lymph # (Auto) 0.8 10^3/uL (0.8-4.8) 11/10/22 05:11 [place] # (Auto) 0.6 10^3/uL (0.2-0.9) 11/10/22 05:11 Eos # (Auto) 0.1 10^3/uL (0.0-0.8) 11/10/22 05:11 Baso # (Auto) 0.0 10^3/uL (0.0-0.1) 11/10/22 05:11 Nucleated RBC % (auto) 0 % 11/10/22 05:11 Nucleated RBCs # 0.0 /100WBC 11/10/22 05:11 D-Dimer 3.81 ug/mIFEU (0-0.59) H 11/10/22 11:40 Specimen Type Arterial 11/10/22 18:03 Sample Site Brachial, right 11/10/22 18:03 ABG pH 7.55 (7.35-7.45) H 11/10/22 18:03 ABG pCO2 35.6 mmHg (35-45) 11/10/22 18:03 ABG pO2 166.0 mmHg (80.0-100.0) H 11/10/22 18:03 ABG HCO3 31.3 mmol/L (22-26) H 11/10/22 18:03 ABG O2 Saturation > 100.0 11/10/22 18:03 ABG Base Excess 8.5 mmol/L (-2.0-2.0) H 11/10/22 18:03 [place] Test N/a 11/10/22 18:03 A-a O2 Gradient 13.8 mmHg (5-10) H 11/10/22 18:03 Hematocrit 35.3 % (37-47) L 11/10/22 18:03 Hgb O2 Saturation 99.3 % (95-100) 11/10/22 18:03 Carboxyhemoglobin 0.9 %THgb (0.4-20.1) 11/10/22 18:03 Methemoglobin 0.4 % (0.4-1.5) 11/10/22 18:03 Total Hemoglobin 11.5 g/dL (12-16) L 11/10/22 18:03 Sodium 128.0 mmol/L (131-143) L 11/10/22 18:03 Potassium 4.4 mmol/L (3.5-5.0) 11/10/22 18:03 Glucose 153.0 mg/dL (70-115) H 11/10/22 18:03 Ionized Calcium 1.1 mmol/L (1.1-1.4) 11/10/22 18:03 O2 Delivery Device Bipap 11/10/22 18:03 O2 Liters/Min 4.0 % 11/10/22 11:30 FiO2 45.0 % 11/10/22 18:03 PEEP 8.0 cmH20 11/10/22 18:03 Disbursement Clerk ID Feliciano 11/10/22 18:03 Sodium 126 mmol/L (136-145) L 11/10/22 05:11 Potassium 5.2 mmol/L (3.5-5.1) H 11/10/22 05:11 Chloride 88 mmol/L (98-107) L 11/10/22 05:11 Carbon Dioxide 31 mmol/L (22-29) H 11/10/22 05:11 Anion Gap 12.2 (5-19) 11/10/22 05:11 BUN 25 mg/dL (8-23) H 11/10/22 05:11 Creatinine 0.8 mg/dL (0.5-0.9) 11/10/22 05:11 GFR Calculation Not Reportable 11/10/22 05:11 Glucose 93 mg/dL (65-115) 11/10/22 05:11 POC Glucose 186 mg/dL (70-110) H 11/10/22 10:17 Calculated Osmolality 266 mOsm/kg (285-295) L 11/10/22 05:11 Calcium 8.5 mg/dL (8.5-10.5) 11/10/22 05:11 Phosphorus 3.6 mg/dL (2.5-4.5) 11/08/22 05:42 Magnesium 1.8 mg/dL (1.7-2.3) 11/08/22 05:42 Total Bilirubin 0.3 mg/dL (0.15-1.2) 11/10/22 05:11 AST 17 U/L (0-32) 11/10/22 05:11 ALT 8 U/L (0-33) 11/10/22 05:11 Alkaline Phosphatase 66 U/L (35-105) 11/10/22 05:11 Troponin T Gen 5 ng/L Cancelled 11/10/22 11:11 Troponin T Baseline 156 ng/L (0-10) H* 11/10/22 11:40 Troponin T 120 Minute 195.2 ng/L (0-10) H 11/10/22 14:05 Delta Troponin T 39.2 ABS# (0-10) H* 11/10/22 14:05 NT-Pro-B Natriuret Pep 6241 pg/mL (0-450) H 11/07/22 11:55 Total Protein 5.3 g/dL (6.6-8.7) L 11/10/22 05:11 Albumin 2.8 g/dL (3.5-5.2) L 11/10/22 05:11 Globulin 2.5 g/dL (1.3-4.6) 11/10/22 05:11 Urine Color Colorless (Yellow) 11/07/22 19:40 Urine Appearance Clear (CLEAR) 11/07/22 19:40 Urine pH 7 (5-7) 11/07/22 19:40 Ur Specific [place] 1.000 (1.005-1.030) L 11/07/22 19:40 Urine Protein Neg (Negative) 11/07/22 19:40 Urine Glucose (UA) Norm (Normal) 11/07/22 19:40 Urine Ketones Negative (Negative) 11/07/22 19:40 Urine Blood Neg (Negative) 11/07/22 19:40 Urine Nitrate Negative (Negative) 11/07/22 19:40 Urine Bilirubin Neg (Negative) 11/07/22 19:40 Urine Urobilinogen Norm mg/dL (Negative) 11/07/22 19:40 Ur Leukocyte Esterase Negative (Negative) 11/07/22 19:40 Urine RBC None /hpf (0-2) 11/07/22 14:48 Urine WBC 5-10 /hpf (0-5) H 11/07/22 14:48 Ur Squamous Epith Cells 5-10 /hpf (0-5) H 11/07/22 14:48 Amorphous Sediment Not Reportable 11/07/22 14:48 Urine Bacteria Trace /hpf (NONE) 11/07/22 14:48 Ur Random Sodium 34 mmol/L 11/07/22 14:48 Ur Random Potassium 34 mmol/L 11/07/22 14:48 Ur Random Chloride 37 mmol/L 11/07/22 14:48 Ur Random Urea Nitrogn 244 mg/dL 11/07/22 14:48 Urine Creatinine 44 mg/dL (28-217) 11/07/22 14:48 Echocardiogram on 10/30/2022 The ventricle is normal in size.? There are no wall motion ?disturbances.? Ventricular function is lower limit of normal ?with an ejection fraction of about 50%.? Septal dyssynergy ?related to the left bundle branch block.? The rhythm is sinus ?with frequent PVCs and a left bundle branch block which ?decreases the sensitivity of the exam.? Grade 2 diastolic ?dysfunction. ?Structurally normal mitral valve. Mild-moderate mitral valve ?regurgitation. ?The inferior vena cava is mildly dilated.? It does not collapse ?quite normally with respiration.? Right atrial pressure 5 to 10 ?mmHg. ?Since the last study of 01/09/2022 the left ventricular function ?may be slightly better, however, the technical capabilities make ?comparison difficult. Procedure(s): CV. echo complete* [id number] ?CONCLUSIONS ?1-Mildly increased left ventricular cavity size. Moderately ?decreased left ventricular systolic function. Left ventricular ?ejection fraction is estimated at 40 %.? There is septal and ?anterior wall hypokinesis.Grade I/IV diastolic dysfunction ?(abnormal relaxation filling pattern), normal to mildly elevated?filling pressures. ?2-Severe aortic valve calcification. Moderate aortic valve ?stenosis, mean gradient 6.4 mmHg, TWYLA 1.4 cm squared. No aortic valve?regurgitation. ?3-Moderately thickened mitral valve. No mitral valve stenosis.?No mitral valve regurgitation. ?4-There is no pericardial effusion. ?5-The right ventricle is normal in size and function.? RVSP ?could not be calculated due to incomplete tricuspid?regurgitation velocity profile. ?6-Right atrial pressure is around 5 mm of mercury. ?7-When compared to the prior echocardiogram dated June 17 there appeared to be moderate aortic stenosis with aortic ?valve area of 1.4 cm2 now however left ventricle ejection ?fraction remained moderately reduced at 40 to 45% ?Mildred Castellanos MD? ?(Electronically Signed) Date of Service: 03/10/21 Procedure(s): Sestamibi Stress Test Request CONCLUSION: Please note due to baseline abnormality of the EKG specificity and sensitivity of the EKG portion of LexiScan MIBI stress test will be low 1.? EKG not suggestive of ischemia 2.? Lexiscan injection unremarkable. 3.? Perfusion scan will be documented separately. Electronically Signed On 03-12-2021 12:06:29 CDT by MILDRED CASTELLANOS Micro: Laboratory Last Values WBC 6.2 10^3/uL (4.0-10.0) 11/10/22 05:11 RBC 2.71 10^6/uL (4.1-5.3) L 11/10/22 05:11 Hgb 8.7 g/dL (11.5-15.3) L 11/10/22 05:11 Hct 26.3 % (37.0-47.0) L 11/10/22 05:11 MCV 97.0 fl (81-99) 11/10/22 05:11 MCH 32.1 pg (28.0-34.0) 11/10/22 05:11 MCHC 33.1 g/dL (30.0-36.0) 11/10/22 05:11 RDW 14.9 % (12.1-15.1) 11/10/22 05:11 Plt Count 187 10^3/cmm (130-400) 11/10/22 05:11 MPV 11.3 fL (7.4-10.4) H 11/10/22 05:11 Neut % (Auto) 74.0 % 11/10/22 05:11 Lymph % (Auto) 12.6 % 11/10/22 05:11 [place] % (Auto) 10.2 % 11/10/22 05:11 Eos % (Auto) 2.3 % 11/10/22 05:11 Baso % (Auto) 0.6 % 11/10/22 05:11 Neut # (Auto) 4.59 10^3/uL (1.8-7.7) 11/10/22 05:11 Lymph # (Auto) 0.8 10^3/uL (0.8-4.8) 11/10/22 05:11 [place] # (Auto) 0.6 10^3/uL (0.2-0.9) 11/10/22 05:11 Eos # (Auto) 0.1 10^3/uL (0.0-0.8) 11/10/22 05:11 Baso # (Auto) 0.0 10^3/uL (0.0-0.1) 11/10/22 05:11 Nucleated RBC % (auto) 0 % 11/10/22 05:11 Nucleated RBCs # 0.0 /100WBC 11/10/22 05:11 D-Dimer 3.81 ug/mIFEU (0-0.59) H 11/10/22 11:40 Specimen Type Arterial 11/10/22 11:30 Sample Site Brachial, right 11/10/22 11:30 ABG pH 7.22 (7.35-7.45) L 11/10/22 11:30 ABG pO2 68.4 mmHg (80.0-100.0) L 11/10/22 11:30 ABG HCO3 30.4 mmol/L (22-26) H 11/10/22 11:30 ABG O2 Saturation 90.8 11/10/22 11:30 ABG Base Excess 1.3 mmol/L (-2.0-2.0) 11/10/22 11:30 [place] Test N/a 11/10/22 11:30 Hematocrit 33.1 % (37-47) L 11/10/22 11:30 Hgb O2 Saturation 89.0 % (95-100) L 11/10/22 11:30 Carboxyhemoglobin 1.0 %THgb (0.4-20.1) 11/10/22 11:30 Methemoglobin 0.9 % (0.4-1.5) 11/10/22 11:30 Total Hemoglobin 10.8 g/dL (12-16) L 11/10/22 11:30 Sodium 129.0 mmol/L (131-143) L 11/10/22 11:30 Potassium 4.2 mmol/L (3.5-5.0) 11/10/22 11:30 Glucose 211.0 mg/dL (70-115) H 11/10/22 11:30 Ionized Calcium 1.2 mmol/L (1.1-1.4) 11/10/22 11:30 O2 Delivery Device Nc 11/10/22 11:30 O2 Liters/Min 4.0 % 11/10/22 11:30 Disbursement Clerk ID Feliciano 11/10/22 11:30 Sodium 126 mmol/L (136-145) L 11/10/22 05:11 Potassium 5.2 mmol/L (3.5-5.1) H 11/10/22 05:11 Chloride 88 mmol/L (98-107) L 11/10/22 05:11 Carbon Dioxide 31 mmol/L (22-29) H 11/10/22 05:11 Anion Gap 12.2 (5-19) 11/10/22 05:11 BUN 25 mg/dL (8-23) H 11/10/22 05:11 Creatinine 0.8 mg/dL (0.5-0.9) 11/10/22 05:11 GFR Calculation Not Reportable 11/10/22 05:11 Glucose 93 mg/dL (65-115) 11/10/22 05:11 POC Glucose 186 mg/dL (70-110) H 11/10/22 10:17 Calculated Osmolality 266 mOsm/kg (285-295) L 11/10/22 05:11 Calcium 8.5 mg/dL (8.5-10.5) 11/10/22 05:11 Phosphorus 3.6 mg/dL (2.5-4.5) 11/08/22 05:42 Magnesium 1.8 mg/dL (1.7-2.3) 11/08/22 05:42 Total Bilirubin 0.3 mg/dL (0.15-1.2) 11/10/22 05:11 AST 17 U/L (0-32) 11/10/22 05:11 ALT 8 U/L (0-33) 11/10/22 05:11 Alkaline Phosphatase 66 U/L (35-105) 11/10/22 05:11 Troponin T Gen 5 ng/L Cancelled 11/10/22 11:11 Troponin T Baseline 156 ng/L (0-10) H* 11/10/22 11:40 Troponin T 120 Minute 195.2 ng/L (0-10) H 11/10/22 14:05 Delta Troponin T 39.2 ABS# (0-10) H* 11/10/22 14:05 NT-Pro-B Natriuret Pep 6241 pg/mL (0-450) H 11/07/22 11:55 Total Protein 5.3 g/dL (6.6-8.7) L 11/10/22 05:11 Albumin 2.8 g/dL (3.5-5.2) L 11/10/22 05:11 Globulin 2.5 g/dL (1.3-4.6) 11/10/22 05:11 Urine Color Colorless (Yellow) 11/07/22 19:40 Urine Appearance Clear (CLEAR) 11/07/22 19:40 Urine pH 7 (5-7) 11/07/22 19:40 Ur Specific [place] 1.000 (1.005-1.030) L 11/07/22 19:40 Urine Protein Neg (Negative) 11/07/22 19:40 Urine Glucose (UA) Norm (Normal) 11/07/22 19:40 Urine Ketones Negative (Negative) 11/07/22 19:40 Urine Blood Neg (Negative) 11/07/22 19:40 Urine Nitrate Negative (Negative) 11/07/22 19:40 Urine Bilirubin Neg (Negative) 11/07/22 19:40 Urine Urobilinogen Norm mg/dL (Negative) 11/07/22 19:40 Ur Leukocyte Esterase Negative (Negative) 11/07/22 19:40 Urine RBC None /hpf (0-2) 11/07/22 14:48 Urine WBC 5-10 /hpf (0-5) H 11/07/22 14:48 Ur Squamous Epith Cells 5-10 /hpf (0-5) H 11/07/22 14:48 Amorphous Sediment Not Reportable 11/07/22 14:48 Urine Bacteria Trace /hpf (NONE) 11/07/22 14:48 Ur Random Sodium 34 mmol/L 11/07/22 14:48 Ur Random Potassium 34 mmol/L 11/07/22 14:48 Ur Random Chloride 37 mmol/L 11/07/22 14:48 Ur Random Urea Nitrogn 244 mg/dL 11/07/22 14:48 Urine Creatinine 44 mg/dL (28-217) 11/07/22 14:48 A&P Assessment and plan (1) NSTEMI (non-ST elevated myocardial infarction): The patient clinical features are suggestive of an acute non-ST elevation myocardial infarction. She may be treated with subcu Lovenox, Plavix, beta-candice, statin and aspirin. She need to be closely monitored for any hernias of bleed because of the anemia. Apparently she has no evidence of any active bleed at this point. She has a history of chronic anemia. (2) Respiratory failure with hypoxia and hypercapnia: Patient is on BiPAP. Oxygenation seems to be improving. (3) Chronic renal insufficiency: The kidney function seems to be stable at this point. May continue on the current measures. (4) Chronic hyponatremia: The sodium seems to be stable around 126. (5) Uncontrolled hypertension: -Started on metoprolol 50 mg p.o. twice daily. Also started on Nitropaste 1 inch every 6 hours 20 chest wall. (6) Dyslipidemia (high LDL; low HDL): May be started on Lipitor 40 mg 1 daily. Consult Attestations Medical Necessity Statement: Patient may be kept n.p.o. after midnight. Consider cardiac catheterization tomorrow to evaluate the coronary status and decide on further management. Based on the patient's clinical progress, further recommendations will be made. Patient apparently had a DNR status early on but now she rescinded it. She is wanting to go for the angiogram, if it is required. Patient had back surgeries for the scoliosis. She has been limiting her activities at home prior to these events. Coding Level of Care Code 23183 Diagnoses NSTEMI (non-ST elevated myocardial infarction) I21.4 Respiratory failure with hypoxia and hypercapnia J96.91; J96.92 Chronic renal insufficiency N18.9 Chronic hyponatremia E87.1 Uncontrolled hypertension I10 Dyslipidemia (high LDL; low HDL) E78.5
--- NOTE | 2022-11-10 17:41 | USCV_ITS ---
Kati Chris Age: 82 Gender: F : 1940 Exam Date: 11/10/2022 21:40 Ordering Phys: Amari Avila MD Technologist: BRODY [place] [facility] [place]: re-evaluation of ejection fraction, recent pneumonia, extreme dyspnea on BIPAP in CSU 107. BP: 155 / 79 HR: 104 Rhythm: Sinus Technical Quality: Technically difficult study due to severe dyspnea MEASUREMENTS (Male / Female) Normal Values 2D ECHO LV Diastolic Diameter PLAX 5.1 cm 4.2 - 5.9 / 3.9 - 5.3 cm LV Systolic Diameter PLAX 4.5 cm IVS Diastolic Thickness 1.1 cm 0.6 - 1.0 / 0.6 - 0.9 cm IVS Systolic Thickness 1.4 cm LVPW Diastolic Thickness 1.1 cm 0.6 - 1.0 / 0.6 - 0.9 cm LVPW Systolic Thickness 1.5 cm LV Ejection Fraction 2D Teich 27.7 % LV Ejection Fraction MOD 2C 28.0 % LV Ejection Fraction 2C AL 26.4 % LA Diameter 5.8 cm RA Width 3.6 cm RA Height 3.5 cm FINDINGS Left Ventricle Diffuse hypokinesia of the left ventricle with a diminished ejection fraction of around 28%. Mildly dilated LV cavity. Right Ventricle Possibly of normal size ejection fraction. Right Atrium Mildly increased right atrial size. Left Atrium Moderately increased left atrial size. Mitral Valve Thickened mitral valve. Mild mitral valve regurgitation. Aortic Valve Thickened and stenotic aortic valve. Tricuspid Valve No gross abnormalities noted Pulmonic Valve Pulmonic valve not well visualized. Pericardium No significant pericardial effusion Aorta Normal aortic annulus size. IVC Inferior vena cava not visualized. CONCLUSIONS Diffuse hypokinesia of the left ventricle with a diminished ejection fraction of around 28%. Mildly dilated LV cavity. Moderately increased left atrial size. Mildly increased right atrial size. Thickened mitral valve. Mild mitral valve regurgitation. Thickened and stenotic aortic valve. There is no pericardial effusion. There are no intracardiac masses. Technically somewhat difficult study Compared to the study from 10/30/2022, there is significant drop in the LV ejection fraction Dr Brian Ocasio MD [facility] (Electronically Signed) Final Date: 11 Nov 2022 10:11 S
--- NOTE | 2022-11-10 18:12 | CT_ITS ---
WS: [id number] CT chest wo con [id number] HISTORY: Respiratory failure. TECHNIQUE: Axial imaging performed through the thorax. Coronal and sagittal reformats are submitted. All CT scans at [facility] use at least one of these dose optimization techniques: automated exposure control; mA and/or kV adjustment per patient size (includes targeted exams where dose is mat ched to clinical indication); or iterative reconstruction. CONTRAST: None DLP: 417.61 mGy.cm COMPARISON: 10/29/2022 Imaging is performed with the patient in a markedly kyphotic position. Lungs and central airway: Moderate progression of the areas of consolidation and scattered opacificat ions throughout both lungs as compared to 10/29/2022. Increasing areas of subsolid consolidation and tr ee-in-bud airspace disease in all lobes. Most significant consolidation involving the RIGHT upper and lower lobes and LEFT lower lobe. There are small bilateral pleural effusions. Pleura: Small bilateral pleural effusions have increased in size since 10/29/2022. Heart and pericardium: Marked enlargement of the heart chambers. Coronary artery calcifications, exte nsive. Mediastinum and juan: Small mediastinal and hilar lymph nodes similar to the prior study. Hilar lymph nodes are difficult to assess without IV contrast. Vessels: Moderate atherosclerosis aorta. Chest wall and lower neck: Mild soft tissue anasarca. Upper abdomen: Normal. Osseous structures: Curvature and thoracolumbar scoliosis. CT/CT chest wo con [id number] IMPRESSION: 1. Moderate increase in size of the multifocal areas of dense and scattered op acifications and tree-in-bud airspace disease. 2. Small but increasing bilateral pleural effusions with compressive atelectas is. 3. Marked cardiomegaly.
[2022-11-10 18:14] LABS: ABG PCO2 35.6 mmHg (35-45); ABG PH Result 7.55 (7.35-7.45); Alveolar-Arterial Oxygen Gradi 13.8 mmHg (5-10); Arterial Blood Gas Hematocrit 35.3 % (37-47); Base Excess ABG 8.5 mmol/L (-2.0-2.0); Blood Gas Sample Site Brachial, right; Blood Gas Sample Type Arterial; Carboxyhemoglobin 0.9 %THgb (0.4-20.1); HCO3 ABG 31.3 mmol/L (22-26); HGB O2 Sat 99.3 % (95-100); Ionized Calcium Level - ABG 1.1 mmol/L (1.1-1.4); Methemoglobin 0.4 % (0.4-1.5); Oxygen Device BIPAP; Oxygen Saturation ABG > 100.0; Potassium Level - ABG 4.4 mmol/L (3.5-5.0); Total Hemoglobin 11.5 g/dL (12-16)
[2022-11-10] MEDS: nitroglycerin 1 gm/inch oint Pkt 1 INCH TOPICAL ×2 (18:14→21:52)
[2022-11-10 18:39] LABS: ABG PCO2 74.1 mmHg (35-45)
[2022-11-10] MEDS: clopidogrel 300 mg Tablet PO (18:44)
[2022-11-10 19:48] LABS: Anion Gap 17.2 (5-19); Blood Urea Nitrogen 33 mg/dL (8-23); C Reactive Protein 94.3 mg/L (0.0-4.9); Carbon Dioxide 30 mmol/L (22-29); Chloride 84 mmol/L (98-107); Glucose 140 mg/dL (65-115); Osmolality Calculated 272 mOsm/kg (285-295); Potassium 5.2 mmol/L (3.5-5.1); Sodium 126 mmol/L (136-145); Total Bilirubin 0.5 mg/dL (0.15-1.2)
[2022-11-10 19:49] LABS: Albumin Level 3.6 g/dL (3.5-5.2); Alkaline Phosphatase 88 U/L (35-105); Globulin 3.7 g/dL (1.3-4.6); Total Protein 7.3 g/dL (6.6-8.7)
[2022-11-10 19:54] LABS: Alanine Aminotransferase 13 U/L (0-33); Aspartate Amino Transferase 56 U/L (0-32)
[2022-11-10 20:03] LABS: Troponin 5 6HR 586.3 ng/L (0-10); Troponin 5 6HR Delta 430.3 ng/L (0-12)
[2022-11-10] MEDS: budesonide 0.5 mg/2 mL Neb INHALATION (20:41)
[2022-11-10] MEDS: ipratropium-albuterol 3 mL Neb INHALATION (20:41)
[2022-11-10] MEDS: ALPRAZolam 0.5 mg Tablet 0.25 MG PO (20:42)
--- NOTE | 2022-11-10 20:44 | PC.NURSE ---
Patient c/o not able to breathe. Cannot leave bipap off long enough to take medication. Administered Xanax as ordered and documented. Bipap remains in place. RT administering breathing treatment at this time.
[2022-11-10] MEDS: metoprolol tartrate 50 mg Tablet PO (21:35)
[2022-11-10] MEDS: dexmedetomidine 400 MCG in sodium chloride 0.9% (100 ml) 100 ML IV (22:30)
--- NOTE | 2022-11-10 22:42 | PC.NURSE ---
Patient continues to c/o not being able to breathe. US tech in to perform echo. He made me aware of very large left pleural effusion. Patient stating, I am going to . Informed Dr Meeks of patient status and interventions performed. MD placed order to start precedex drip which has been initiated as ordered. Patient bipap remains in place with FiO2 at 40% presently. Family informed and remain at bedside.
--- NOTE | 2022-11-10 23:41 | ECG_ITS ---
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 Measurements Intervals [place] Rate: 81 P: 49 DE: 159 QRS: -5 QRSD: 161 T: 78 QT: 408 QTc: 474 Interpretive Statements SINUS RHYTHM POSSIBLE LEFT ATRIAL ENLARGEMENT [-0.1mV P-WAVE IN V1/V2] LEFT BUNDLE BRANCH BLOCK [120+ ms QRS DURATION, 80+ ms Q/S IN V1/V2, 85+ ms R IN I/aVL/V5/V6] Compared to ECG 11/10/2022 17:09:18 No significant changes Electronically Signed On 11-13-2022 6:15:27 CDT by Susan Marquez M.D. [id number]
[2022-11-11] VITALS (59 sets, daily range): BP systolic 104–180; BP diastolic 39–98; PULSE 59–102; RESP 13–33; TEMP 36.5–37; O2SAT 90–100; BMI 26.6
--- NOTE | 2022-11-11 00:41 | PC.NURSE ---
Patient transferred to ICU 9. Bedside report given to KEHINDE Moy.
[2022-11-11] MEDS: HYDROcodone-acetaminophen 10-325 mg Tablet 1 TAB PO ×5 (02:44→21:42)
[2022-11-11] MEDS: ipratropium-albuterol 3 mL Neb INHALATION ×4 (02:45→20:06)
[2022-11-11] MEDS: levothyroxine 88 mcg Tablet PO (05:38)
[2022-11-11] MEDS: nitroglycerin 1 gm/inch oint Pkt 1 INCH TOPICAL ×2 (05:38→12:03)
[2022-11-11 06:44] LABS: Basophils % 0.2 %; Lymphocytes # 0.4 10^3/uL (0.8-4.8); Lymphocytes % 2.3 %; Mean Corpuscular HGB Conc 31.3 g/dL (30.0-36.0); Mean Corpuscular Hemoglobin 30.5 pg (28.0-34.0); Mean Corpuscular Volume 97.6 fl (81-99); Mean Platelet Volume 10.9 fL (7.4-10.4); Monocytes # 1.2 10^3/uL (0.2-0.9); Monocytes % 6.5 %; Neutrophils # 16.91 10^3/uL (1.8-7.7); Neutrophils % 90.1 %; Nucleated Red Blood Cells % 0 %; Platelet Count 241 10^3/cmm (130-400); Red Blood Count 3.28 10^6/uL (4.1-5.3); Red Cell Distribution Width 14.7 % (12.1-15.1); White Blood Count 18.8 10^3/uL (4.0-10.0)
[2022-11-11 06:54] LABS: Alanine Aminotransferase 13 U/L (0-33); Albumin Level 3.1 g/dL (3.5-5.2); Alkaline Phosphatase 75 U/L (35-105); Anion Gap 17.4 (5-19); Aspartate Amino Transferase 78 U/L (0-32); Blood Urea Nitrogen 35 mg/dL (8-23); Calcium 8.8 mg/dL (8.5-10.5); Carbon Dioxide 28 mmol/L (22-29); Chloride 86 mmol/L (98-107); Globulin 3.4 g/dL (1.3-4.6); Glucose 106 mg/dL (65-115); Osmolality Calculated 272 mOsm/kg (285-295); Potassium 4.4 mmol/L (3.5-5.1); Sodium 127 mmol/L (136-145); Total Bilirubin 0.5 mg/dL (0.15-1.2); Total Protein 6.5 g/dL (6.6-8.7)
[2022-11-11] MEDS: budesonide 0.5 mg/2 mL Neb INHALATION ×2 (08:19→20:06)
[2022-11-11 08:23] LABS: Adenovirus Not Detected (NOT DETECT); Chlamydia Pneumoniae Not Detected (NOT DETECT); Coronavirus 229E,HKU1,NL63,OC4 Not Detected (NOT DETECT); Human Metapneumovirus Not Detected (NOT DETECT); Human Rhinovirus/Enterovirus Not Detected (NOT DETECT); Influenza A Not Detected (NOT DETECT); Influenza A H1 Not Detected (NOT DETECT); Influenza A H1-2009 Not Detected (NOT DETECT); Influenza A H3 Not Detected (NOT DETECT); Influenza B Not Detected (NOT DETECT); Mycoplasma Pneumoniae Not Detected (NOT DETECT); Parainfluenza Virus Type 1 Not Detected (NOT DETECT); Parainfluenza Virus Type 2 Not Detected (NOT DETECT); Parainfluenza Virus Type 3 Not Detected (NOT DETECT); Parainfluenza Virus Type 4 Not Detected (NOT DETECT); Respiratory Syncytial Virus A Not Detected (NOT DETECT); Respiratory Syncytial Virus B Not Detected (NOT DETECT); SARS-COV-2 Not Detected (NOT DETECT)
[2022-11-11] MEDS: dexmedetomidine 400 MCG in sodium chloride 0.9% (100 ml) 100 ML 12.27 MCG IV (09:00)
[2022-11-11] MEDS: aspirin 81 mg Chew Tablet PO (09:38)
[2022-11-11] MEDS: citalopram 20 mg Tablet 30 MG PO (09:38)
[2022-11-11] MEDS: isosorbide mononitrate ER 60 mg Tablet PO (09:38)
[2022-11-11] MEDS: sodium chloride 1 gm Tablet PO ×3 (09:38→21:42)
[2022-11-11] MEDS: tamsulosin 0.4 mg Capsule PO ×2 (09:38→17:07)
[2022-11-11] MEDS: clopidogrel 75 mg Tablet PO (09:38)
[2022-11-11] MEDS: gabapentin 100 mg Capsule PO ×2 (09:38→17:08)
[2022-11-11] MEDS: hyDRALAzine 50 mg Tablet PO (09:39)
[2022-11-11] MEDS: magnesium oxide 400 mg tablet PO ×2 (09:39→17:14)
--- NOTE | 2022-11-11 11:07 | PC.SOCIAL ---
Imm update Imm updated with patient and family at bedside. Copy of page 2 provided. Patient and family verbalized understanding. Copy in chart initialed, dated and
[2022-11-11] MEDS: FUROsemide 10 mg/mL SDV 4mL 40 MG IVP (11:52)
[2022-11-11] MEDS: piperacillin-tazobactam 3.375 GM in sodium chloride 0.9% (plus) 50 ML IV ×2 (11:54→18:29)
[2022-11-11] MEDS: enoxaparin 60 mg/0.6 mL Syringe SUBCUT (12:03)
--- NOTE | 2022-11-11 13:43 | PC.NURSE ---
Only 75mL of urine output over the hour and a half after lasix was given. Nurse bladder scanned patient shows 16mL retained.
[2022-11-11] MEDS: bisacodyl 5 mg Tablet 10 MG PO (13:56)
--- NOTE | 2022-11-11 14:09 | PM.PN ---
Subjective Subjective: She feels better than yesterday. Burning upper abdomen and chest pain yesterday. None today. off precedes drip, UO 50 cc and just received lasix; on 2 L of O2 via NC Medications: Reviewed: Yes Vitals/I&O/Wt Last Vital Signs Temp 98.6 F 11/11/22 08:00 Pulse 70 11/11/22 12:03 Resp 19 H 11/11/22 08:30 BP 127/45 11/11/22 12:03 Pulse Ox 95 11/11/22 08:30 O2 Del Method Heated High Flow 11/11/22 08:19 O2 Flow Rate 60 11/11/22 08:26 FiO2 40 11/11/22 08:26 11/10/22 11/11/22 11/11/22 22:59 06:59 14:59 Intake Total 240.153 / 490.153 50.237 / 540.390 38.446 / 38.446 Output Total 1000 / 1375 50 / 50 Balance 240.153 / 115.153 -949.763 / -834.610 -11.554 / -11.554 Weight last 48 hrs Weight 141 lb Physical Exam Const: COMMON NORMALS: no acute distress, patient oriented x3 and alert GENERAL APPEARANCE: cooperative, comfortable, well kempt and well hydrated HENMT: COMMON NORMALS: hearing grossly normal bilaterally and external ears normal FACE & SINUS: normal facial exam EXTERNAL EAR: Yes external ears normal Eye: COMMON NORMALS: EOMs intact bilaterally and no scleral icterus GENERAL EYE: appearance normal, both eyes and all related structures ALIGNMENT: Yes alignment normal Neck/C-Spine: COMMON NORMALS: supple and no JVD GENERAL: Yes normal visual inspection CAROTIDS: Yes normal carotid upstroke Chest: COMMONS NORMALS: normal inspection of the chest and normal palpation of entire chest wall CHEST: Yes Symmetrical chest wall rise and No tenderness Resp: COMMON NORMALS: clear to auscultation bilaterally AUSCULTATION: clear to auscultation bilaterally, no crackles, no rales, no rhonchi and no wheezes Cardio: COMMON NORMALS: no JVD, regular rate, regular rhythm, S1 normal heart sound present, S2 normal heart sound present and Peripheral pulses 2+ throughout PALPATION: normal PMI RATE: regular rate RHYTHM: regular rhythm HEART SOUNDS: S1 normal heart sound present, S2 normal heart sound present, no gallops and no murmurs BRUITS: no carotid bruits PERIPHERAL PULSES: Peripheral pulses 2+ throughout and radial pulses present GI: COMMON NORMALS: Soft to palpation AUSCULTATION: Yes normoactive bowel sounds PALPATION: Yes Soft to palpation, No Tenderness to palpation present (GI), No Guarding due to palpation present (GI) and No Rigid due to palpation Extremity: GENERAL: No cyanosis, Yes edema and No pallor Neuro: COMMON NORMALS: patient oriented x3 SENSORIUM/ORIENTATION: Yes alert Psych: COMMON NORMALS: Normal thought process present and speech normal APPEARANCE: Yes well kempt SPEECH: Yes normal speech MOOD & AFFECT: Yes euthymic mood THOUGHT PROCESS: Normal thought process present THOUGHT CONTENT: Yes Normal thought content present Urinary Catheter Management: Lim: Cath Placed During This Visit: yes Reason for Continuing Indwelling Catheter: Accurate Measurement of Urinary Output in Critically Ill Patients Urinary Catheter Date of Insertion: 11/07/22 Urinary Catheter Time of Insertion: 19:00 Data 11/11/22 06:02 11/11/22 06:02 A&P Assessment and plan (1) NSTEMI (non-ST elevated myocardial infarction): Given drop in LV function, elevated troponin and intermittent chest pains, I will plan for LHC in morning based on patient's lab and clinical status. (2) Coronary artery disease: Qualifiers: Associated angina: without angina Coronary Disease-Associated Artery/Lesion type: [place] artery [place] vs. transplanted heart: [place] heart Qualified Code(s): I25.10 - Atherosclerotic heart disease of [place] coronary artery without angina pectoris (3) Dyslipidemia (high LDL; low HDL): (4) Chronic hyponatremia: Plan CHF HTN Constipation Hypothyroidism Attestations Medical Necessity Statement*: Needs hospital stay for NSTEMI and CHF Coding Level of Care Code Acute Code for [facility] Fwd Diagnoses NSTEMI (non-ST elevated myocardial infarction) I21.4 Coronary artery disease I25.10 Associated angina: without angina Coronary Disease-Associated Artery/Lesion type: [place] artery [place] vs. transplanted heart: [place] heart Dyslipidemia (high LDL; low HDL) E78.5 Chronic hyponatremia E87.1
--- NOTE | 2022-11-11 17:05 | PM.PN ---
Subjective Subjective: Overnight patient was transferred to ICU for starting of Precedex given anxiety. Patient was on Precedex of as high as 0.8. Today morning on examination patient was on Precedex 0.3, slightly drowsy with family at bedside. Waking up to verbal stimulus and able to have complete conversation. States she is feeling a lot better. Patient today is more clear alert. Not asking to go back to [facility]. Denies any nausea, vomiting. Denies any further chest pain. Overnight patient was placed on heated high flow. Today morning during examination patient was transition from heated high flow to 2 L oxygen supplementation continued to saturate more than 95%. Patient denies any further chest pain. Blood pressures today morning at normal range but are relatively hypertension palpation for which antihypertensives were adjusted. Medications: Reviewed: Yes Vitals/I&O/Wt Last Vital Signs Temp 97.7 F 11/11/22 14:00 Pulse 60 11/11/22 14:30 Resp 13 11/11/22 14:30 BP 107/51 11/11/22 14:30 Pulse Ox 95 11/11/22 14:30 O2 Del Method Nasal Cannula 11/11/22 14:15 O2 Flow Rate 2 11/11/22 14:15 FiO2 40 11/11/22 08:26 11/11/22 11/11/22 11/11/22 06:59 14:59 22:59 Intake Total 50.237 / 540.390 38.446 / 38.446 50 / 88.446 Output Total 1000 / 1375 150 / 150 Balance -949.763 / -834.610 -111.554 / -111.554 50 / -61.554 Weight last 48 hrs Weight 63.957 kg Physical Exam Narrative: General: Patient is frail. Chronically sick appearing, anxious, at start was having difficulty in breathing which improved after being on BiPAP. Head: Temporal wasting. Neck: No JVD. Cardiovascular: No gallops. No murmurs. 3-4+ pitting edema bilaterally. Lungs: Adequate air movement. No wheezing. No Crackles. Skin: No jaundice. No rashes. Abdomen: Normal bowel sounds, abdomen soft and nontender. Genito Urinary: Genital exam not performed since complaints not related. Rectal: Rectal exam not performed since no symptoms indicated blood loss. Extremities: No cyanosis or clubbing. Musculoskeletal: No overt joint deformity. Neurological: Moves all 4 extremities. No myoclonus. Urinary Catheter Management: Lim: Cath Placed During This Visit: yes Reason for Continuing Indwelling Catheter: Accurate Measurement of Urinary Output in Critically Ill Patients Urinary Catheter Date of Insertion: 11/07/22 Urinary Catheter Time of Insertion: 19:00 Data 11/11/22 06:02 11/11/22 06:02 A&P Assessment and plan (1) Respiratory failure with hypoxia and hypercapnia: Resolved. Patient back to baseline oxygen supplementation. D-dimer elevated 3.4. After age-related modification within normal limits. CT chest results appreciated. Concerns for bilateral pleural effusion with possible atelectasis and mild pneumonia. Respiratory viral panel negative. Sputum culture awaited. MRSA recently negative. Given critically illness for now start patient on IV Zosyn empirically. We will try to finish a 5-day course. Continue with DuoNebs every 6 hour, budesonide twice daily. Oxygen supplementation keeping saturation over 90%. (2) NSTEMI (non-ST elevated myocardial infarction): Troponin cycle trended up. Cardiology consulted. Echocardiogram repeated showed an EF of 28% with LV cavity, moderate LA size and mild RA size increased, mild MR. Continue with aspirin, Plavix, statin, beta-candice, Imdur. Given borderline relative low blood pressure for patient for normal stop the nitro patch. Plan for cardiac angiogram in the next 24 hours. (3) Heart failure: Repeat echocardiogram as above. Strict input/output charting, daily weights. Overall around 1500 cc negative since admission. Poor oral intake. Switch to oral Lasix 40 mg twice daily. Remove fluid restrictions for now. (4) Chronic hyponatremia: Acute on chronic hyponatremia. Baseline sodium seems to be around 1 28-1 30. Improved to 127 today. Most likely in setting of congestive heart failure. Repeat BMP in evening. Urine sodium found to be 34. Serum osmolality improving. (5) Hypertension: Goal blood pressure less than 150/90 mmHg. Patient states usually blood pressures have been running around 170 for many years. Reluctant to increase antihypertensives too much. States on increasing medication she becomes very sleepy and tired. Multiple antihypertensives at home. Takes clonidine 0.1 twice daily, felodipine 10 mg oral every afternoon, hydralazine 25 mg 3 times daily, Imdur 60 mg oral daily, valsartan 160 mg twice daily. Blood pressure stable today. For now continue only with metoprolol 50 mg twice daily, Imdur 30 mg twice daily. Qualifiers: Hypertension type: essential hypertension Qualified Code(s): I10 - Essential (primary) hypertension (6) Chronic renal insufficiency: Medical reconciliation done for nephrotoxic drugs. Creatinine back to baseline. (7) Hyperkalemia: Telemetry Hold off on home dose potassium. Continue to monitor daily. (8) Coronary artery disease: Qualifiers: Coronary Disease-Associated Artery/Lesion type: [place] artery [place] vs. transplanted heart: [place] heart Associated angina: without angina Qualified Code(s): I25.10 - Atherosclerotic heart disease of [place] coronary artery without angina pectoris Plan Anxiety: Precedex as above. Try to not go higher than 0.2. Patient is at risk of hypercapnic respiratory failure Start on Celexa 30 mg oral daily. DVT ppx: Full dose Lovenox will suffice as DVT prophylaxis. Code status: Reconfirmed with the patient and patient's spouse at bedside. Wants to remain full code. Regular diet. Patient remains critically sick. Continue care at ICU. Discharge plan: Plan is to discharge back to [facility] once medically stable. Patient has agreed to stay in the hospital till the evening for now. Family at bedside. Attestations Medical Necessity Statement*: Requires further hospitalization for management of non-ST elevation [place] with ischemic cardiomyopathy leading to congestive heart failure leading to respiratory failure in a patient with baseline chronic hyponatremia, advanced age Coding Level of Care Code Critical Care >/= 30 minutes Critical care time (in minutes): 60 The high probability of a clinically significant, sudden or life threatening deterioration, as referenced in this documentation, required my full and direct attention, intervention and personal management. The critical care time shown is in addition to time spent performing any reported separately billable procedures and includes the following: [x] Data and vital sign review and interpretation [x] Patient assessment, examination and intervention [x] Medication orders and management [x] Patient/Family updates as able [x] Care Coordination and Documentation. Diagnoses Respiratory failure with hypoxia and hypercapnia J96.91; J96.92 NSTEMI (non-ST elevated myocardial infarction) I21.4 Heart failure I50.9 Chronic hyponatremia E87.1 Hypertension I10 Hypertension type: essential hypertension Chronic renal insufficiency N18.9 Hyperkalemia E87.5 Coronary artery disease I25.10 Coronary Disease-Associated Artery/Lesion type: [place] artery [place] vs. transplanted heart: [place] heart Associated angina: without angina
[2022-11-11] MEDS: magnesium hydroxide 30 mL UDC PO (17:08)
--- NOTE | 2022-11-11 19:19 | PC.NURSE ---
SHift SUmmary: Uneventful shift. Patient taken to CT in the morning. Most Antihypertensives medications have been discontinue and patient's blood pressure has stayed mostly in the 120's systolic. Up to the chair for about 6 hours. On 2L NC all day. MIlk of mag and dolcolax given today, but no bowel movement. total turine output has been 200mL, total fluid intake 1200mL. Feet appear a little more swollen than this morning. Cath planned for tommorow.
[2022-11-11] MEDS: atorvastatin 40 mg Tablet PO (21:42)
[2022-11-11] MEDS: sodium chloride 0.9% 1,000 ML 50 ML IV (22:25)
[2022-11-12] VITALS (52 sets, daily range): BP systolic 80–167; BP diastolic 48–90; PULSE 54–168; RESP 11–27; TEMP 36.8–37.3; O2SAT 88–99
[2022-11-12] MEDS: enoxaparin 60 mg/0.6 mL Syringe SUBCUT ×2 (01:56→11:21)
[2022-11-12] MEDS: piperacillin-tazobactam 3.375 GM in sodium chloride 0.9% (plus) 50 ML IV ×3 (01:57→17:33)
[2022-11-12] MEDS: ipratropium-albuterol 3 mL Neb INHALATION (02:17)
[2022-11-12] MEDS: dexmedetomidine 400 MCG in sodium chloride 0.9% (100 ml) 100 ML IV (05:30)
--- NOTE | 2022-11-12 05:43 | ECG_ITS ---
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 Measurements Intervals [place] Rate: 156 P: 0 CO: 0 QRS: 23 QRSD: 131 T: 146 QT: 321 QTc: 518 Interpretive Statements ATRIAL FIBRILLATION WITH RAPID VENTRICULAR RESPONSE WITH ABERRANT CONDUCTION OR VENTRICULAR PREMATURE COMPLEXES INTRAVENTRICULAR CONDUCTION DELAY [130+ ms QRS DURATION] Compared to ECG 11/10/2022 23:41:40 Aberrant conduction of supraventricular beat(s) now present Ventricular premature complex(es) now present Intraventricular conduction delay now present Myocardial infarct finding now present Sinus rhythm no longer present Left bundle-branch block no longer present Electronically Signed On 11-12-2022 12:34:33 CDT by Susan Marquez M.D. [id number]
[2022-11-12] MEDS: morphine 4 mg/mL SDV 1 mL 1 MG IVP (05:54)
[2022-11-12] MEDS: metoprolol tartrate 1 mg/1 mL SDV 5 mL 5 MG IVP (05:54)
--- NOTE | 2022-11-12 05:59 | PC.NURSE ---
[address] Meeks to report rhythm change. [address] Meeks. Reported patient's rhythm change, chest pain, and nausea. Dr. Meeks came to bedside. EKG done and reviewed. Orders for medications received. See AUG.
[2022-11-12] MEDS: HYDROcodone-acetaminophen 10-325 mg Tablet 1 TAB PO ×3 (07:27→16:46)
[2022-11-12 08:31] LABS: Basophils % 0.1 %; Eosinophils % 0.1 %; Lymphocytes # 0.6 10^3/uL (0.8-4.8); Lymphocytes % 3.6 %; Mean Corpuscular HGB Conc 32.1 g/dL (30.0-36.0); Mean Corpuscular Hemoglobin 31.1 pg (28.0-34.0); Mean Corpuscular Volume 96.9 fl (81-99); Mean Platelet Volume 10.9 fL (7.4-10.4); Monocytes # 1.2 10^3/uL (0.2-0.9); Monocytes % 7.4 %; Neutrophils # 14.59 10^3/uL (1.8-7.7); Neutrophils % 88.2 %; Nucleated Red Blood Cells % 0 %; Platelet Count 224 10^3/cmm (130-400); Red Blood Count 2.89 10^6/uL (4.1-5.3); Red Cell Distribution Width 14.8 % (12.1-15.1); White Blood Count 16.5 10^3/uL (4.0-10.0)
[2022-11-12] MEDS: sodium chloride 0.9% 500 ML IV (08:45)
--- NOTE | 2022-11-12 08:49 | PC.NURSE ---
Just before giving Digoxin and the 500mL fluid bolus, THe patient's rhythm converted. No longer Afib, SR/SB. NUrse Alerted Dr Avila, who ordered to cancel the digoxin, only give 250mL of the fluid bolus, and decrease amiodarone to 0.5.
[2022-11-12 08:50] LABS: Alanine Aminotransferase 14 U/L (0-33); Albumin Level 2.7 g/dL (3.5-5.2); Alkaline Phosphatase 77 U/L (35-105); Anion Gap 15.4 (5-19); Aspartate Amino Transferase 36 U/L (0-32); Blood Urea Nitrogen 45 mg/dL (8-23); Calcium 8.4 mg/dL (8.5-10.5); Carbon Dioxide 28 mmol/L (22-29); Chloride 84 mmol/L (98-107); Globulin 3.6 g/dL (1.3-4.6); Glucose 150 mg/dL (65-115); Osmolality Calculated 270 mOsm/kg (285-295); Potassium 4.4 mmol/L (3.5-5.1); Sodium 123 mmol/L (136-145); Total Bilirubin 0.6 mg/dL (0.15-1.2); Total Protein 6.3 g/dL (6.6-8.7)
[2022-11-12] MEDS: aspirin 81 mg Chew Tablet PO ×2 (11:19→11:22)
[2022-11-12] MEDS: citalopram 20 mg Tablet 30 MG PO (11:19)
[2022-11-12] MEDS: magnesium oxide 400 mg tablet PO ×2 (11:20→20:37)
[2022-11-12] MEDS: sodium chloride 1 gm Tablet PO ×3 (11:20→20:37)
[2022-11-12] MEDS: gabapentin 100 mg Capsule PO ×2 (11:20→17:28)
[2022-11-12] MEDS: clopidogrel 75 mg Tablet PO (11:21)
[2022-11-12] MEDS: levothyroxine 88 mcg Tablet PO (11:21)
[2022-11-12] MEDS: tamsulosin 0.4 mg Capsule PO ×2 (11:21→17:28)
[2022-11-12] MEDS: aspirin 325 mg Tablet PO (11:26)
--- NOTE | 2022-11-12 12:22 | P.PN_ITS ---
Subjective Subjective: She had rough morning due to atrial fibrillation with Rapid response with heart rate in 150s. Patient's blood pressure dropped reportedly intp 60's and needed levophed support. started on amiodarone and converted to SR. c/o back pain at the time of exam Medications: Reviewed: Yes Vitals/I&O/Wt Last Vital Signs Temp 98.3 F 11/12/22 00:00 Pulse 118 H 11/12/22 08:10 Resp 18 11/12/22 08:10 BP 121/90 11/12/22 06:00 Pulse Ox 95 11/12/22 08:10 O2 Del Method High Flow Nasal Cannula 11/12/22 08:10 O2 Flow Rate 4 11/12/22 08:10 FiO2 40 11/11/22 08:26 11/11/22 11/12/22 11/12/22 22:59 06:59 14:59 Intake Total 1850 / 1888.446 80 / 1968.446 155.371 / 155.371 Output Total 150 / 300 250 / 550 Balance 1700 / 1588.446 -170 / 1418.446 155.371 / 155.371 Weight last 48 hrs Weight 141 lb Physical Exam Const: COMMON NORMALS: no acute distress, patient oriented x3 and alert GENERAL APPEARANCE: cooperative, comfortable, well kempt and well hydrated HENMT: COMMON NORMALS: hearing grossly normal bilaterally, external ears normal and moist oral mucous membranes FACE & SINUS: normal facial exam EXTERNAL EAR: Yes external ears normal Eye: COMMON NORMALS: EOMs intact bilaterally and no scleral icterus GENERAL EYE: appearance normal, both eyes and all related structures ALIGNMENT: Yes alignment normal Neck/C-Spine: COMMON NORMALS: supple and no JVD GENERAL: Yes normal visual inspection CAROTIDS: Yes normal carotid upstroke Chest: COMMONS NORMALS: normal inspection of the chest and normal palpation of entire chest wall CHEST: Yes Symmetrical chest wall rise and No tenderness Resp: COMMON NORMALS: clear to auscultation bilaterally AUSCULTATION: clear to auscultation bilaterally, no crackles, no rales, no rhonchi and no wheezes Cardio: COMMON NORMALS: no JVD, regular rate, regular rhythm, S1 normal heart sound present, S2 normal heart sound present and Peripheral pulses 2+ throughout PALPATION: normal PMI RATE: regular rate RHYTHM: regular rhythm HEART SOUNDS: S1 normal heart sound present, S2 normal heart sound present, no gallops and no murmurs BRUITS: no carotid bruits PERIPHERAL PULSES: Peripheral pulses 2+ throughout, radial pulses present, posterior tibial pulses present and dorsalis pedis present GI: COMMON NORMALS: Soft to palpation AUSCULTATION: Yes normoactive bowel sounds PALPATION: Yes Soft to palpation, No Tenderness to palpation present (GI), No Guarding due to palpation present (GI) and No Rigid due to palpation PERCUSSION: tympanic to percussion Extremity: GENERAL: No cyanosis, Yes edema and No pallor Neuro: COMMON NORMALS: patient oriented x3 and no focal motor deficits SENS ORIUM/ORIENTATION: Yes alert Psych: COMMON NORMALS: Normal thought process present and speech normal APPEARANCE: Yes well kempt SPEECH: Yes normal speech MOOD & AFFECT: Yes euthymic mood THOUGHT PROCESS: Normal thought process present THOUGHT CONTENT: Yes Normal thought content present Urinary Catheter Management: Lim: Cath Placed During This Visit: yes Reason for Continuing Indwelling Catheter: Accurate Measurement of Urinary Output in Critically Ill Patients Urinary Catheter Date of Insertion: 11/07/22 Urinary Catheter Time of Insertion: 19:00 Data 11/13/22 03:50 11/13/22 03:50 A&P Assessment and plan (1) NSTEMI (non-ST elevated myocardial infarction): Given drop in LV function, elevated troponin and intermittent chest pains, I will plan for LHC in morning based on patient's lab and clinical status. (2) Coronary artery disease: Qualifiers: Associated angina: without angina Coronary Disease-Associated Artery/Lesion type: [place] artery [place] vs. transplanted heart: [place] heart Qualified Code(s): I25.10 - Atherosclerotic heart disease of [place] coronary artery without angina pectoris (3) Dyslipidemia (high LDL; low HDL): (4) Chronic hyponatremia: Plan Atrial fibrillation CHF DAXA HTN Chronic anemia Constipation Hypothyroidism Attestations Medical Necessity Statement*: Needs hospital stay for NSTEMI, hyponatremia and CHF Coding Level of Care Code Acute Code for [facility] Diagnoses NSTEMI (non-ST elevated myocardial infarction) I21.4 Coronary artery disease I25.10 Associated angina: without angina Coronary Disease-Associated Artery/Lesion type: [place] artery [place] vs. transplanted heart: [place] heart Dyslipidemia (high LDL; low HDL) E78.5 Chronic hyponatremia E87.1
[2022-11-12 14:33] LABS: Potassium, Radom Urine 49 mmol/L
[2022-11-12] MEDS: FUROsemide 10 mg/mL SDV 4mL 40 MG IVP ×2 (14:45→20:38)
[2022-11-12 14:53] LABS: Urine Random Chloride < 10 mmol/L; Urine Random Sodium < 10 mmol/L
--- NOTE | 2022-11-12 17:03 | PM.PN ---
Subjective Subjective: No acute events overnight. Earlier today morning patient developed atrial fibrillation with RVR for which she was given 5 of IV metoprolol after which her blood pressures dropped. She was started on Levophed and ordered for an amiodarone. 1 hour after getting IV amiodarone she converted over to normal sinus rhythm. During the day we noted pressures have maintained around 70 and Levophed has been turned off. Patient's oxygen supplementation have maintained around 3 to 4 L. Patient is awake and alert able to have complete conversation. Denies any new complaints. States she is feeling stable. Multiple family members at bedside. Again prolonged goals of care discussions were done at bedside. Family is cannot discuss among themselves regarding further plan of treatment. Plan was for cardiac angiogram today which was deferred given overnight events. Medications: Reviewed: Yes Vitals/I&O/Wt Last Vital Signs Temp 99.2 F 11/12/22 09:30 Pulse 67 11/12/22 14:00 Resp 17 11/12/22 13:30 BP 116/64 11/12/22 13:30 Pulse Ox 99 11/12/22 13:30 O2 Del Method Nasal Cannula 11/12/22 09:30 O2 Flow Rate 4 11/12/22 09:30 FiO2 40 11/11/22 08:26 11/12/22 11/12/22 11/12/22 06:59 14:59 22:59 Intake Total 80 / 1968.446 321.848 / 321.848 50 / 371.848 Output Total 250 / 550 Balance -170 / 1418.446 321.848 / 321.848 50 / 371.848 Weight last 48 hrs Weight 63.957 kg Physical Exam Narrative: General: Patient is frail. Chronically sick appearing, anxious, at start was having difficulty in breathing which improved after being on BiPAP. Head: Temporal wasting. Neck: No JVD. Cardiovascular: No gallops. No murmurs. 3-4+ pitting edema bilaterally. Lungs: Adequate air movement. No wheezing. No Crackles. Skin: No jaundice. No rashes. Abdomen: Normal bowel sounds, abdomen soft and nontender. Genito Urinary: Genital exam not performed since complaints not related. Rectal: Rectal exam not performed since no symptoms indicated blood loss. Extremities: No cyanosis or clubbing. Musculoskeletal: No overt joint deformity. Neurological: Moves all 4 extremities. No myoclonus. Urinary Catheter Management: Lim: Cath Placed During This Visit: yes Reason for Continuing Indwelling Catheter: Accurate Measurement of Urinary Output in Critically Ill Patients Urinary Catheter Date of Insertion: 11/07/22 Urinary Catheter Time of Insertion: 19:00 Data 11/12/22 08:07 11/12/22 08:07 A&P Assessment and plan (1) Cardiogenic shock: In setting of A-fib, non-STEMI and congestive heart failure. Keep mean artery pressure 65. Wean Levophed accordingly. Strict input output charting. (2) Atrial fibrillation with RVR: Continue with amiodarone drip for now. Converted back to normal sinus rhythm. Maintaining sinus heart rate around 70. Decrease drip to 0.5. Will switch over to oral as per protocol within 24 hours. Already on full dose anticoagulation. If maintains in A-fib on and off for the next 24 hours then will plan for long-term anticoagulation otherwise we will hold off. (3) NSTEMI (non-ST elevated myocardial infarction): Troponin cycle trended up. Cardiology consulted. Plan for cardiac angiogram once patient is hemodynamically stable and if creatinine remains stable. Echocardiogram repeated showed an EF of 28% with LV cavity, moderate LA size and mild RA size increased, mild MR. Continue with aspirin, Plavix, statin. Holding off on beta-candice and Imdur given low blood pressures today. (4) Respiratory failure with hypoxia and hypercapnia: Resolved. Patient back to baseline oxygen supplementation. D-dimer elevated 3.4. After age-related modification within normal limits. CT chest results appreciated. Concerns for bilateral pleural effusion with possible atelectasis and mild pneumonia. Respiratory viral panel negative. Sputum culture awaited. MRSA recently negative. Given critically illness for now start patient on IV Zosyn empirically. We will try to finish a 5-day course. Continue with DuoNebs every 6 hour, budesonide twice daily. Oxygen supplementation keeping saturation over 90%. (5) Heart failure: Repeat echocardiogram as above. Patient achieved euvolemia. Strict input/output charting, daily weights. Overall around net euvolemic. Hold off on Lasix for now. Monitor fluid status and can plan for redosing in the evening. Hold off on fluid restrictions for now. (6) Chronic hyponatremia: Acute on chronic hyponatremia. Baseline sodium seems to be around 1 28-1 30. Down to 123. Most likely in setting of IV fluids she was getting for possible cardiac catheterization today. Repeat BMP in evening. Continue with oral salt 3 times daily. Patient slightly lethargic but no other symptoms of hyponatremia. (7) Hypertension: Goal blood pressure with mean over 65-70. Currently cardiogenic shock. Patient states usually blood pressures have been running around 170 for many years. Reluctant to increase antihypertensives too much. States on increasing medication she becomes very sleepy and tired. Multiple antihypertensives at home. Takes clonidine 0.1 twice daily, felodipine 10 mg oral every afternoon, hydralazine 25 mg 3 times daily, Imdur 60 mg oral daily, valsartan 160 mg twice daily. Hold off on antihypertensives as above. Qualifiers: Hypertension type: essential hypertension Qualified Code(s): I10 - Essential (primary) hypertension (8) Chronic renal insufficiency: Medical reconciliation done for nephrotoxic drugs. Creatinine back to baseline. (9) Hyperkalemia: Telemetry Hold off on home dose potassium. Continue to monitor daily. (10) Coronary artery disease: Qualifiers: Coronary Disease-Associated Artery/Lesion type: [place] artery [place] vs. transplanted heart: [place] heart Associated angina: without angina Qualified Code(s): I25.10 - Atherosclerotic heart disease of [place] coronary artery without angina pectoris Plan Anxiety: Precedex as above. Try to not go higher than 0.2. Patient is at risk of hypercapnic respiratory failure Decrease dose of Celexa to 10 mg oral daily. DVT ppx: Full dose Lovenox will suffice as DVT prophylaxis. Code status: Reconfirmed with the patient and patient's spouse at bedside. Wants to remain full code. Regular diet. Patient remains critically sick. Continue care at ICU. Discharge plan: Plan is to discharge back to assisted once medically stable. Patient has agreed to stay in the hospital till the evening for now. Family at bedside. Attestations Medical Necessity Statement*: Requires further hospitalization for management of cardiogenic shock in setting of non-ST elevation [place], severe LV dysfunction with congestive heart failure, atrial fibrillation, acute on chronic hyponatremia Coding Level of Care Code Critical Care >/= 30 minutes Critical care time (in minutes): 70 The high probability of a clinically significant, sudden or life threatening deterioration, as referenced in this documentation, required my full and direct attention, intervention and personal management. The critical care time shown is in addition to time spent performing any reported separately billable procedures and includes the following: [x] Data and vital sign review and interpretation [x] Patient assessment, examination and intervention [x] Medication orders and management [x] Patient/Family updates as able [x] Care Coordination and Documentation. Diagnoses Cardiogenic shock R57.0 Atrial fibrillation with RVR I48.91 NSTEMI (non-ST elevated myocardial infarction) I21.4 Respiratory failure with hypoxia and hypercapnia J96.91; J96.92 Heart failure I50.9 Chronic hyponatremia E87.1 Hypertension I10 Hypertension type: essential hypertension Chronic renal insufficiency N18.9 Hyperkalemia E87.5 Coronary artery disease I25.10 Coronary Disease-Associated Artery/Lesion type: [place] artery [place] vs. transplanted heart: [place] heart Associated angina: without angina
--- NOTE | 2022-11-12 18:36 | PC.NURSE ---
Shift SUmmary: Upon arrival in the morning, patient was in AFIBwith RVR and hypotensive. Treated with IV amiodarone, levohed, and fluid bolus and patient quickly converted to NSR and levophed was titrated off shortly after. Besides morning AFIB episode, uneventful shift. Patient was up to the chair for about 6 hours of the day. Total urine output for day shift 11/12/2022 has been 200mL. Patient is fluid positive today and has increased edema to lower extremities. Patient has become more and more depressed over the last 3 days. States She was supposed to discharge, then had the Nstemi. THen after initial improvement she went into afib and wasn't able to get the cath procedure. She states she is taking 1 step forward and 2 steps back.
[2022-11-12] MEDS: atorvastatin 40 mg Tablet PO (20:38)
[2022-11-13] VITALS (28 sets, daily range): BP systolic 97–172; BP diastolic 63–98; PULSE 59–139; RESP 10–37; TEMP 36.7–37.1; O2SAT 95–99
[2022-11-13] MEDS: enoxaparin 60 mg/0.6 mL Syringe SUBCUT ×2 (00:46→13:39)
[2022-11-13] MEDS: HYDROcodone-acetaminophen 10-325 mg Tablet 1 TAB PO ×4 (00:46→20:43)
[2022-11-13] MEDS: morphine 4 mg/mL SDV 1 mL 1 MG IVP ×3 (03:32→18:23)
[2022-11-13 04:26] LABS: Basophils % 0.3 %; Eosinophils % 0.3 %; Hematocrit 28.8 % (37.0-47.0); Hemoglobin 9.1 g/dL (11.5-15.3); Lymphocytes # 0.7 10^3/uL (0.8-4.8); Lymphocytes % 5.1 %; Mean Corpuscular HGB Conc 31.6 g/dL (30.0-36.0); Mean Corpuscular Hemoglobin 30.4 pg (28.0-34.0); Mean Corpuscular Volume 96.3 fl (81-99); Mean Platelet Volume 11.5 fL (7.4-10.4); Monocytes # 0.9 10^3/uL (0.2-0.9); Monocytes % 7.2 %; Neutrophils # 11.13 10^3/uL (1.8-7.7); Neutrophils % 86.7 %; Nucleated Red Blood Cells % 0 %; Platelet Count 277 10^3/cmm (130-400); Red Blood Count 2.99 10^6/uL (4.1-5.3); White Blood Count 12.8 10^3/uL (4.0-10.0)
[2022-11-13 04:44] LABS: Alanine Aminotransferase 12 U/L (0-33); Albumin Level 2.8 g/dL (3.5-5.2); Alkaline Phosphatase 84 U/L (35-105); Aspartate Amino Transferase 23 U/L (0-32); Blood Urea Nitrogen 44 mg/dL (8-23); Calcium 8.3 mg/dL (8.5-10.5); Carbon Dioxide 29 mmol/L (22-29); Chloride 84 mmol/L (98-107); Globulin 3.6 g/dL (1.3-4.6); Glucose 108 mg/dL (65-115); Osmolality Calculated 270 mOsm/kg (285-295); Sodium 124 mmol/L (136-145); Total Bilirubin 0.5 mg/dL (0.15-1.2); Total Protein 6.4 g/dL (6.6-8.7)
[2022-11-13 04:49] LABS: Slide Review Slide Review Perform
[2022-11-13] MEDS: piperacillin-tazobactam 3.375 GM in sodium chloride 0.9% (plus) 50 ML IV ×3 (04:54→18:49)
[2022-11-13] MEDS: levothyroxine 88 mcg Tablet PO (06:22)
--- NOTE | 2022-11-13 09:00 | PM.PN ---
Subjective Subjective: Patient denies active chest pain. Does have shortness of breath. Vitals/I&O/Wt Last Vital Signs Temp 98.1 F 11/13/22 00:00 Pulse 67 11/13/22 08:00 Resp 28 H 11/13/22 08:39 BP 152/71 11/13/22 05:00 Pulse Ox 96 11/13/22 08:39 O2 Del Method Nasal Cannula 11/13/22 08:00 O2 Flow Rate 2 11/13/22 08:00 FiO2 40 11/11/22 08:26 11/12/22 11/13/22 11/13/22 22:59 06:59 14:59 Intake Total 1850 / 2171.848 375 / 2546.848 Output Total 550 / 550 700 / 1250 Balance 1300 / 1621.848 -325 / 1296.848 Physical Exam Const: COMMON NORMALS: no acute distress, patient oriented x3 and alert GENERAL APPEARANCE: cooperative, comfortable, well kempt and well hydrated HENMT: COMMON NORMALS: hearing grossly normal bilaterally, external ears normal and moist oral mucous membranes FACE & SINUS: normal facial exam EXTERNAL EAR: Yes external ears normal Eye: COMMON NORMALS: EOMs intact bilaterally and no scleral icterus GENERAL EYE: appearance normal, both eyes and all related structures ALIGNMENT: Yes alignment normal Neck/C-Spine: COMMON NORMALS: supple and no JVD GENERAL: Yes normal visual inspection CAROTIDS: Yes normal carotid upstroke Chest: COMMONS NORMALS: normal inspection of the chest and normal palpation of entire chest wall CHEST: Yes Symmetrical chest wall rise and No tenderness Resp: COMMON NORMALS: clear to auscultation bilaterally AUSCULTATION: clear to auscultation bilaterally, no crackles, no rales, no rhonchi and no wheezes Cardio: COMMON NORMALS: no JVD, regular rate, regular rhythm, S1 normal heart sound present, S2 normal heart sound present and Peripheral pulses 2+ throughout PALPATION: normal PMI RATE: regular rate RHYTHM: regular rhythm HEART SOUNDS: S1 normal heart sound present, S2 normal heart sound present, no gallops and no murmurs BRUITS: no carotid bruits PERIPHERAL PULSES: Peripheral pulses 2+ throughout, radial pulses present, posterior tibial pulses present and dorsalis pedis present GI: COMMON NORMALS: Soft to palpation AUSCULTATION: Yes normoactive bowel sounds PALPATION: Yes Soft to palpation, No Tenderness to palpation present (GI), No Guarding due to palpation present (GI) and No Rigid due to palpation PERCUSSION: tympanic to percussion Extremity: GENERAL: No cyanosis, Yes edema and No pallor Neuro: COMMON NORMALS: patient oriented x3 and no focal motor deficits SENSORIUM/ORIENTATION: Yes alert Psych: COMMON NORMALS: Normal thought process present and speech normal APPEARANCE: Yes well kempt SPEECH: Yes normal speech MOOD & AFFECT: Yes euthymic mood THOUGHT PROCESS: Normal thought process present THOUGHT CONTENT: Yes Normal thought content present Urinary Catheter Management: Lim: Cath Placed During This Visit: yes Reason for Continuing Indwelling Catheter: Accurate Measurement of Urinary Output in Critically Ill Patients Urinary Catheter Date of Insertion: 11/07/22 Urinary Catheter Time of Insertion: 19:00 Data 11/14/22 03:11 11/14/22 03:11 A&P Assessment and plan (1) NSTEMI (non-ST elevated myocardial infarction): She had significant troponin elevation and LV dysfunction. Plan for coronary angiogram with possible percutaneous coronary intervention if renal function stays stable tomorrow. N.p.o. past midnight. Continue current medications. (2) Coronary artery disease: Qualifiers: Coronary Disease-Associated Artery/Lesion type: [place] artery [place] vs. transplanted heart: [place] heart Associated angina: without angina Qualified Code(s): I25.10 - Atherosclerotic heart disease of [place] coronary artery without angina pectoris (3) Dyslipidemia (high LDL; low HDL): (4) Chronic hyponatremia: Plan Atrial fibrillation CHF DAXA HTN Chronic anemia Constipation Hypothyroidism Attestations Medical Necessity Statement*: Care expected to cross 2 midnights. Coding Level of Care Code Acute Code for [facility] Diagnoses NSTEMI (non-ST elevated myocardial infarction) I21.4 Coronary artery disease I25.10 Coronary Disease-Associated Artery/Lesion type: [place] artery [place] vs. transplanted heart: [place] heart Associated angina: without angina Dyslipidemia (high LDL; low HDL) E78.5 Chronic hyponatremia E87.1
[2022-11-13] MEDS: citalopram 20 mg Tablet 10 MG PO (09:37)
[2022-11-13] MEDS: clopidogrel 75 mg Tablet PO (09:38)
[2022-11-13] MEDS: sodium chloride 1 gm Tablet PO ×3 (09:38→20:43)
[2022-11-13] MEDS: amiodarone 200 mg Tablet PO ×2 (09:38→18:01)
[2022-11-13] MEDS: gabapentin 100 mg Capsule PO ×2 (09:39→18:01)
[2022-11-13] MEDS: tamsulosin 0.4 mg Capsule PO (09:39)
[2022-11-13] MEDS: magnesium oxide 400 mg tablet PO ×2 (09:41→18:01)
--- NOTE | 2022-11-13 13:09 | PC.SOCIAL ---
Imm update Imm updated with patient and at bedside. Copy of page 2 provided to patient. Patient and verbalized understanding. Copy in chart initialed, dated and timed.
--- NOTE | 2022-11-13 17:19 | P.PN_ITS ---
Subjective Subjective: No acute events overnight. Patient has remained hemodynamically stable and afebrile. Continues to remain on Levophed. Has maintained normal sinus rhythm. Continue to saturate more than 95% on 3 oxygen supplementation. Today morning again seen multiple family members at bedside. Patient is a lot more awake and alert today. Sat up in chair again today. Blood pressures have been more stabl e today. Denies any chest pain. States she feels like eating at breakfast burrito today. Medications: Reviewed: Yes Vitals/I&O/Wt Last Vital Signs Temp 98.7 F 11/13/22 07:00 Pulse 73 11/13/22 14:00 Resp 15 11/13/22 14:00 BP 97/74 11/13/22 14:00 Pulse Ox 98 11/13/22 14:00 O2 Del Method Nasal Cannula 11/13/22 14:00 O2 Flow Rate 3 11/13/22 14:00 FiO2 40 11/11/22 08:26 11/13/22 11/13/22 11/13/22 06:59 14:59 22:59 Intake Total 375 / 2546.848 250 / 250 Output Total 700 / 1250 Balance -325 / 1296.848 250 / 250 Physical Exam Narrative: General: Patient is frail. Chronically sick appearing, anxious, at start was having difficulty in breathing which improved after being on BiPAP. Head: Temporal wasting. Neck: No JVD. Cardiovascular: No gallops. No murmurs. 3-4+ pitting edema bilaterally. Lungs: Adequate air movement. No wheezing. No Crackles. Skin: No jaundice. No rashes. Abdomen: Normal bowel sounds, abdomen soft and nontender. Genito Urinary: Genital exam not performed since complaints not related. Rectal: Rectal exam not performed since no symptoms indicated blood loss. Extremities: No cyanosis or clubbing. Musculoskeletal: No overt joint deformity. Neurological: Moves all 4 extremities. No myoclonus. Urinary Catheter Management: Lim: Cath Placed During This Visit: yes Reason for Continuing Indwelling Catheter: Accurate Measurement of Urinary Output in Critically Ill Patients Urinary Catheter Date of Insertion: 11/07/22 Urinary Catheter Time of Insertion: 19:00 Data 11/13/22 03:50 11/13/22 03:50 A&P Assessment and plan (1) Cardiogenic shock: In setting of A-fib, non-STEMI and congestive heart failure. Keep mean artery pressure 65. Wean Levophed accordingly. Strict input output charting. (2) Atrial fibrillation with RVR: Continue with amiodarone drip for now. Converted back to normal sinus rhythm. Maintaining sinus heart rate around 70. Decrease drip to 0.5. Will switch over to oral as per protocol within 24 hours. Already on full dose anticoagulation. If maintains in A-fib on and off for the next 24 hours then will plan for long-term anticoagulation otherwise we will hold off. (3) NSTEMI (non-ST elevated myocardial infarction): Troponin cycle trended up. Cardiology consulted. Plan for cardiac angiogram once patient is hemodynamically stable and if creatinine remains stable. Echocardiogram repeated showed an EF of 28% with LV cavity, moderate LA size and mild RA size increased, mild MR. Continue with aspirin, Plavix, statin. Holding off on beta-candice and Imdur given low blood pressures today. (4) Respiratory failure with hypoxia and hypercapnia: Resolved. Patient back to baseline oxygen supplementation. D-dimer elevated 3.4. After age-related modification within normal limits. CT chest results appreciated. Concerns for bilateral pleural effusion with possible atelectasis and mild pneumonia. Respiratory viral panel negative. Sputum culture awaited. MRSA recently negative. Given critically illness for now start patient on IV Zosyn empirically. We will try to finish a 5-day course. Continue with DuoNebs every 6 hour, budesonide twice daily. Oxygen supplementation keeping saturation over 90%. (5) Heart failure: Repeat echocardiogram as above. Patient achieved euvolemia. Strict input/output charting, daily weights. Overall around net euvolemic. Hold off on Lasix for now. Monitor fluid status and can plan for redosing in the evening. Hold off on fluid restrictions for now. (6) Chronic hyponatremia: Acute on chronic hyponatremia. Baseline sodium seems to be around 1 28-1 30. Down to 123. Most likely in setting of IV fluids she was getting for possible cardiac catheterization today. Repeat BMP in evening. Continue with oral salt 3 times daily. Patient slightly lethargic but no other symptoms of hyponatremia. (7) Hypertension: Goal blood pressure with mean over 65-70. Currently cardiogenic shock. Patient states usually blood pressures have been running around 170 for many years. Reluctant to increase antihypertensives too much. States on increasing medication she becomes very sleepy and tired. Multiple antihypertensives at home. Takes clonidine 0.1 twice daily, felodipine 10 mg oral every afternoon, hydralazine 25 mg 3 times daily, Imdur 60 mg oral daily, valsartan 160 mg twice daily. Hold off on antihypertensives as above. Qualifiers: Hypertension type: essential hypertension Qualified Code(s): I10 - Essential (primary) hypertension (8) Chronic renal insufficiency: Medical reconciliation done for nephrotoxic drugs. Creatinine back to baseline. (9) Hyperkalemia: Telemetry Hold off on home dose potassium. Continue to monitor daily. (10) Coronary artery disease: Qualifiers: Coronary Disease-Associated Artery/Lesion type: [place] artery [place] vs. transplanted heart: [place] heart Associated angina: without angina Qualified Code(s): I25.10 - Atherosclerotic heart disease of [place] coronary artery without angina pectoris Plan Anxiety: Precedex as above. Try to not go higher than 0.2. Patient is at risk of hypercapnic respiratory failure Decrease dose of Celexa to 10 mg oral daily. DVT ppx: Full dose Lovenox will suffice as DVT prophylaxis. Code status: Reconfirmed with the patient and patient's spouse at bedside. Wants to remain full code. Regular diet. Plan for the day: Restart regular diet. N.p.o. after midnight for cardiac catheterization in AM. Monitor CBC and CMP. Switch from IV amiodarone drip to oral amiodarone 200 mg twice daily. Monitor blood pressures. Goal blood pressure less than 140/90 mmHg. Will restart Imdur accordingly. Out of bed to chair. Incentive spirometry. Hold off on any fluid or Lasix for now. Patient is euvolemic today. Continue with Celexa 10 mg oral daily. Continue with aspirin, Plavix, statin. Continue with full dose Lovenox. Change Flomax to 0.4 mg daily from twice daily. Patient remains critically sick. Continue care at ICU. Discharge plan: Plan is to discharge back to senior care once medically stable. Patient has agreed to stay in the hospital till the evening for now. Family at bedside. Attestations Medical Necessity Statement*: Requires further hospitalization for management of congestive heart failure, resolving cardiogenic shock in a patient with non-ST elevation [place] leading to ischemic cardiomyopathy with EF of less than 30%, acute on chronic hyponatremia Coding Level of Care Code Critical Care >/= 30 minutes Critical care time (in minutes): 60 The high probability of a clinically significant, sudden or life threatening deterioration, as referenced in this documentation, required my full and direct attention, intervention and personal management. The critical care time shown is in addition to time spent performing any reported separately billable procedures and includes the following: [x] Data and vital sign review and interpretation [x ] Patient assessment, examination and intervention [x] Medication orders and management [x] Patient/Family updates as able [x] Care Coordination and Documen tation. Diagnoses Cardiogenic shock R57.0 Atrial fibrillation with RVR I48.91 NSTEMI (non-ST elevated myocardial infarction) I21.4 Respiratory failure with hypoxia and hypercapnia J96.91; J96.92 Heart failure I50.9 Chronic hyponatremia E87.1 Hypertension I10 Hypertension type: essential hypertension Chronic renal insufficiency N18.9 Hyperkalemia E87.5 Coronary artery disease I25.10 Coronary Disease-Associated Artery/Lesion type: [place] artery [place] vs. transplanted heart: [place] heart Associated angina: without angina
--- NOTE | 2022-11-13 19:36 | PC.NURSE ---
Shift summary: Pt remains alert and oriented. She remains very weak. She was able to get out of bed to chair for about 4 hours today. She complains of back pain and bottom pain. She has refused repositioning multiple times to day. Aloe vesta applied to her bottom seemed to help. Amiodarone gtt sopped around 1000, Pt had been started on PO amio. Right before 1800 she went into afib again. Heart rate 125-150, pt stated she was feeling woozy' . Amio bolus and gtt restarted at 0.5mcg/min as ordered. She has a poor appetite,. Family very good at getting foods that tempt her. Her urine output of 550ml noted this shift. She continues to have pitting edema lower extremities and generalized edema upper extremities.
[2022-11-13] MEDS: atorvastatin 40 mg Tablet PO (20:43)
[2022-11-14] VITALS (66 sets, daily range): BP systolic 120–172; BP diastolic 46–96; PULSE 54–76; RESP 8–25; TEMP 36.4–36.9; O2SAT 89–100; BMI 27.8
[2022-11-14] MEDS: aspirin 325 mg Tablet PO (00:01)
[2022-11-14] MEDS: piperacillin-tazobactam 3.375 GM in sodium chloride 0.9% (plus) 50 ML IV ×3 (02:30→17:47)
[2022-11-14] MEDS: sodium chloride 0.9% 1,000 ML 50 ML IV (02:31)
[2022-11-14] MEDS: morphine 4 mg/mL SDV 1 mL 1 MG IVP (02:37)
[2022-11-14 03:52] LABS: Basophils % 0.2 %; Eosinophils # 0.1 10^3/uL (0.0-0.8); Eosinophils % 0.7 %; Hematocrit 28.5 % (37.0-47.0); Hemoglobin 8.9 g/dL (11.5-15.3); Lymphocytes # 0.6 10^3/uL (0.8-4.8); Mean Corpuscular HGB Conc 31.2 g/dL (30.0-36.0); Mean Corpuscular Hemoglobin 31.1 pg (28.0-34.0); Mean Corpuscular Volume 99.7 fl (81-99); Mean Platelet Volume 10.9 fL (7.4-10.4); Monocytes # 0.8 10^3/uL (0.2-0.9); Monocytes % 7.8 %; Neutrophils # 8.37 10^3/uL (1.8-7.7); Neutrophils % 84.9 %; Nucleated Red Blood Cells % 0 %; Platelet Count 324 10^3/cmm (130-400); Red Blood Count 2.86 10^6/uL (4.1-5.3); Red Cell Distribution Width 14.9 % (12.1-15.1); White Blood Count 9.9 10^3/uL (4.0-10.0)
[2022-11-14 04:36] LABS: Alanine Aminotransferase 10 U/L (0-33); Albumin Level 2.4 g/dL (3.5-5.2); Alkaline Phosphatase 78 U/L (35-105); Anion Gap 13.9 (5-19); Aspartate Amino Transferase 14 U/L (0-32); Blood Urea Nitrogen 44 mg/dL (8-23); Calcium 8.1 mg/dL (8.5-10.5); Carbon Dioxide 29 mmol/L (22-29); Chloride 88 mmol/L (98-107); Globulin 3.7 g/dL (1.3-4.6); Glucose 108 mg/dL (65-115); Osmolality Calculated 276 mOsm/kg (285-295); Potassium 3.9 mmol/L (3.5-5.1); Sodium 127 mmol/L (136-145); Total Bilirubin 0.4 mg/dL (0.15-1.2); Total Protein 6.1 g/dL (6.6-8.7)
[2022-11-14] MEDS: levothyroxine 88 mcg Tablet PO (04:55)
--- NOTE | 2022-11-14 07:52 | W.PM.OPSUD ---
Surgery/Procedure H&P Update DATE OF PROCEDURE: November 14, 2022 DATE H&P PERFORMED: 11/10/22 H&P UPDATE INFORMATION: I have reviewed H&P completed within last 30 days, I have examined patient prior to procedure and No changes to prior documentation PREOP DIAGNOSIS: NSTEMI/ LV dysfunction PRIMARY INDICATION FOR PROCEDURE: NSTEMI/ LV dysfunction PLANNED PROCEDURE: Operation Date: 11/14/22 Proposed Procedures p Cardiac Catheterization(Left) - Edson Ahumada MD Possible percutaneous coronary intervention PATIENT REASSESSED PRIOR TO SEDATION, WITH NO CHANGE NOTED: Yes PHYSICAL EXAM: alert, oriented x 3 and regular rate & rhythm OTHER PERTINENT EXAM FINDINGS: Diminished air entry bilaterally AIRWAY EVAL/ANESTHESIA PLAN: normal airway, ASA IV, Local Anesthesia, Risks, benefits & alternatives of sedation and/or procedure discussed and Patient agrees to continue as planned
--- NOTE | 2022-11-14 08:03 | XACV_ITS ---
Exam Room: [facility] Ht: 155 cm Wt: 64 kg BSA: 1.68 m2 Gender: Female : 1940 Any Known Allergies: Other Exam Priority: Routine Procedure(s): Procedure Description: Diagnostic procedure Procedure Description: Left Heart Catheterization Procedure Description: Coronary Angiography Procedure Description: Pressure Wire Diagnostic Cath Status: Urgent Diagnostic Findings * Left Main: obstructive 60% stenosis, NADE[place]: 3 flow. Significant dampening of pressures with catheter engagement.. * Proximal Left Anterior Descending: obstructive 60% stenosis, NADEEM: 3 flow. * Proximal Right Coronary Artery: total occlusion, NADEEM: 0 flow. * Proximal Circumflex: obstructive 60% stenosis, NADE[place]: 3 flow. * Coronary angiography shows right dominance. Interventional Findings * PROCEDURE DETAIL: We engaged left main artery with XB 3.0 guide catheter. IVheparin was administered to maintain anticoagulation. After normalization, IFR wire was advanced into distal LAD. iFR value of 0.69 was obtained on pullback gradient was across ostial left main artery. Guide catheter was removed. 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 Conclusions 1. Severe multivessel CAD including severe 2. left main artery stenosis 3. 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 , moderate LAD and left circumflex artery stenosis.. Recommendations * We will have discussion with patient and family regarding different options including high risk PCI of left main artery versus medical therapy versus hospice. Patient is not a good surgical candidate and patient also does not want to have surgery. Based on family conference, further plan will be formulated.. * Continue dual antiplatelet therapy with aspirin and Plavix. * High intensity statin therapy. Interventional RX Recommendation: PCI w/o planned CABG Diagnostic RX Recommendation: PCI w/o planned CABG Anticoagulation: Heparin Pressures Phase:Rest AO : 142 / 71 ( 101 ) @ 9:14:00 AM 170 / 58 ( 95 ) @ 9:19:00 AM 170 / 57 ( 95 ) @ 9:19:00 AM 170 / 56 ( 93 ) @ 9:20:00 AM LV : 175 / 8 / 32 @ 9:19:00 AM 175 / 9 / 34 @ 9:19:00 AM Valves Phase:DefaultPhase AV : 6.0 @ 8:46:57 AM AV Mean Gradient: 9.0 @ 8:46:57 AM 9.0 @ 8:46:57 AM Clinical Evaluation EBL: 5mL-10mL Procedural Details Pre-Procedure Time Out. Identified patient by full name and date of as verbalized by the patient/guarantor. Does the consent match the physician's order: Yes. Accurate & Complete Informed Consent: Yes. Inpatient/Outpatient History & Physical on Chart: Yes. If H&P is completed, is and addenduem needed: No; If yes, is the addendum complete: N/A. Visualize and Verify Site with Patient/Guarantor: N/A. Relevant Radiology Images available: N/A. Pre-op teaching completed and patient verbalized understanding. The risks, benefits, and alternatives of sedation and/or procedure were discussed by physician. The patient agrees to continue. Procedure started. [facility] Clinical Fraility Score: 7: Severely Frail. Supervisor Airplane Flight Attendant Indications: Suspected CAD. Chest Pain Symptom Assessment: Asymptomatic. Correct patient, site and procedure confirmed by cath team. Current diagnosis: NSTEMI. PERRLA. Strong, equal hand director organizational bilaterally. Lungs clear x 5 lobes. IV Site on Arrival: 20 gauge in the left anticubital. IV Site on Arrival: 20 gauge in the right anticubital. IV Fluids: 0.9% NaCl at KVO. 300 mL infused prior to lab nurse. Pre Procedural Pulses: right radial was 2+. Oxygen started at 5liters/min via nasal canula. right groin was prepped with chloroprep then draped in the usual sterile fashion. right radial was prepped with chloroprep then draped in the usual sterile fashion. Baseline sample Acquired. HR: 72 BPM. Physician notified. Physician arrived. Physician scrubbed in. Immediate Pre-Procedure Time Out. Correct Patient: Yes; Correct Procedure: Yes; Correct Site: Yes; Correct Patient Position: Yes; Correct Supplies: Yes; Dried Flammable Prep: Yes; Blood Products Available: N/A;. Lidocaine 1% infiltrated to the right radial. Admit Source: In Patient. Arterial access obtained. A 5 russian TIG catheter in over wire. Multiple views taken of left coronary artery. Catheter redirected to the RCA. Multiple views taken of right coronary artery. EDP Sample taken: LV 175/8,32; HR: 67 BPM; SpO2: 98%. Pullback taken: LV 175/9,34; AO 170/58(95); Mean: 9mmHg, Peak to Peak: 6mmHg, SEP: 20sec/min; HR: 67 BPM; SpO2: 98%. Amiodorone infusing at 16.7ml/hr from ICU. Catheter out. 6 russian XB 3 guide catheter was inserted over the wire. IFR guidewire was advanced through the guide catheter to lesion in the L main. IFR Spot 0.69, IFR pullback 0.66. IFR wire out. Guide catheter out. A TR Band was successful obtaining hemostatsis at the Right Radial artery insertion site. Post Procedure: Pulses reassessed and unchanged. PERRLA. Strong, equal hand director organizational bilaterally. No VTE prophylaxis required. Post-op diagnosis: Severe Ostial L Main Stenosis. Medication's Wasted: Lidocaine 1% = 1 mL. Medication's Wasted: Nitro = 49.6 mg. Medication's Wasted: Other = Fentanyl 50 mcg. Medication's Wasted: Other = Versed 1 mg. Medication's Wasted: Heparin = 1000 u. Total IV fluids: 40 mL. Complications: none. Estimated blood loss: 5mL-10mL. Responsiveness - Normal response to verbal stimuli; alert and oriented, PERRLA. Airway - Unaffected, no intervention required; spontaneous ventilation. Circulation: W/N/L, pulses unchanged. Nausea/Vomiting: No. Procedure completed. Patient transferred by bed to ICU. Vital chart was stopped. Access Site Site: Right Radial artery Sheath Size: 6 Fr Hemostasis Method: TR Band Hemostasis Success: Successful Procedure Medications Start: 8:12 AM Stop: 8:12 AM Medication: Versed Amount: 1 mg Route: I.V. Start: 8:12 AM Stop: 8:12 AM Medication: Fentanyl Amount: 50 mcg Route: I.V. Start: 8:13 AM Stop: 8:13 AM Medication: Nitrogylcerin Amount: 200 mcg Route: I.A. Start: 8:14 AM Stop: 8:14 AM Medication: Heparin Amount: 5000 units Route: I.V. Start: 8:22 AM Stop: 8:22 AM Medication: Nitrogylcerin Amount: 200 mcg Route: I.A. I, the attending physician, have reviewed and verified all procedure medications. Yes, all medications given per verbal order History/Risk Factors Hypertension: Yes Dyslipidemia: Yes Peripheral Arterial Disease (PAD): No Myocardial Infarction (ND): Yes Obesity: Yes Renal Disease: No Tobacco Use: Never Prior Interventions PCI: No CABG: No Valve Surgery: No Report Signatures Finalized by Edson Ahumada MD on 11/17/2022 06:25 PM
[2022-11-14] MEDS: clopidogrel 75 mg Tablet PO (11:07)
[2022-11-14] MEDS: gabapentin 100 mg Capsule PO ×2 (11:07→17:47)
[2022-11-14] MEDS: magnesium oxide 400 mg tablet PO ×2 (11:07→17:47)
[2022-11-14] MEDS: citalopram 20 mg Tablet 10 MG PO (11:07)
[2022-11-14] MEDS: sodium chloride 1 gm Tablet PO ×3 (11:08→20:53)
[2022-11-14] MEDS: aspirin 81 mg Chew Tablet PO (11:08)
[2022-11-14] MEDS: HYDROcodone-acetaminophen 10-325 mg Tablet 1 TAB PO ×3 (11:08→20:52)
[2022-11-14] MEDS: isosorbide mononitrate ER 30 mg Tablet PO (11:09)
[2022-11-14] MEDS: tamsulosin 0.4 mg Capsule PO (11:09)
[2022-11-14] MEDS: enoxaparin 60 mg/0.6 mL Syringe SUBCUT (11:27)
--- NOTE | 2022-11-14 11:50 | P.PN_ITS ---
Subjective Subjective: Patient underwent coronary angiogram today that showed severe left main stenosis confirmed with IFR value of 0.66. Significant dampening of pressures with catheter engagement. LVEDP is also significantly elevated Vitals/I&O/Wt Last Vital Signs Temp 97.6 F 11/14/22 08:45 Pulse 62 11/14/22 09:24 Resp 16 11/14/22 09:24 BP 172/75 11/14/22 09:00 Pulse Ox 98 11/14/22 09:24 O2 Del Method Nasal Cannula 11/14/22 09:24 O2 Flow Rate 2 11/14/22 09:24 FiO2 40 11/11/22 08:26 11/13/22 11/14/22 11/14/22 22:59 06:59 14:59 Intake Total 800 / 1544.703 70 / 1614.703 Output Total 650 / 650 Balance 150 / 894.703 70 / 964.703 Weight last 48 hrs Weight 147 lb 6 oz Physical Exam Const: COMMON NORMALS: no acute distress, patient oriented x3 and alert GENERAL APPEARANCE: cooperative, comfortable, well kempt and well hydrated HENMT: COMMON NORMALS: hearing grossly normal bilaterally, external ears normal and moist oral mucous membranes FACE & SINUS: normal facial exam EXTERNAL EAR: Yes external ears normal Eye: COMMON NORMALS: EOMs intact bilaterally and no scleral icterus GENERAL EYE: appearance normal, both eyes and all related structures ALIGNMENT: Yes alignment normal Neck/C-Spine: COMMON NORMALS: supple and no JVD GENERAL: Yes normal visual inspection CAROTIDS: Yes normal carotid upstroke Chest: COMMONS NORMALS: normal inspection of the chest and normal palpation of entire chest wall CHEST: Yes Symmetrical chest wall rise and No tenderness Resp: COMMON NORMALS: clear to auscultation bilaterally AUSCULTATION: clear to auscultation bilaterally, no crackles, no rales, no rhonchi and no wheezes Cardio: COMMON NORMALS: no JVD, regular rate, regular rhythm, S1 normal heart sound present, S2 normal heart sound present and Peripheral pulses 2+ throughout PALPATION: normal PMI RATE: regular rate RHYTHM: regular rhythm HEART SOUNDS: S1 normal heart sound present, S2 normal heart sound present, no gallops and no murmurs BRUITS: no carotid bruits PERIPHERAL PULSES: Peripheral pulses 2+ throughout, radial pulses present, posterior tibial pulses present and dorsalis pedis present GI: COMMON NORMALS: Soft to palpation AUSCULTATION: Yes normoactive bowel sounds PALPATION: Yes Soft to palpation, No Tenderness to palpation present (GI), No Guarding due to palpation present (GI) and No Rigid due to palpation PERCUSSION: tympanic to percussion Extremity: GENERAL: No cyanosis, Yes edema and No pallor Neuro: COMMON NORMALS: patient oriented x3 and no focal motor deficits SENSORIUM/ORIENTATION: Yes alert Psych: COMMON NORMALS: Normal thought process present and speech normal AP PEARANCE: Yes well kempt SPEECH: Yes normal speech MOOD & AFFECT: Yes euthymic mood THOUGHT PROCESS: Normal thought process present THOUGHT CONTENT: Yes Normal thought content present Urinary Catheter Management: Lim: Cath Placed During This Visit: yes Reason for Continuing Indwelling Catheter: Accurate Measurement of Urinary Output in Critically Ill Patients Urinary Catheter Date of Insertion: 11/07/22 Urinary Catheter Time of Insertion: 19:00 Data 11/15/22 03:07 11/15/22 03:07 A&P Assessment and plan (1) NSTEMI (non-ST elevated myocardial infarction): Patient has severe left main stenosis. 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 LV systolic function is reduced. LVEDP is elevated. I had a detailed discussion with the patient and family regarding all possible options including medical therapy versus hospice c are versus high risk PCI of left main artery. We had a discussion given her frailty and overall medical condition she may not be a good surgical candidate. After weighing risks and benefits patient wants to proceed with high risk PCI of left main artery. All risks were discussed in detail including renal function worsening leading to dialysis, bleeding, vascular damage, cardiac arrest and . Patient and family understand the risks and want to proceed with it. Continue aspirin and Plavix. Continue anticoagulation. We will give Lasix 20 mg IV x1 today. We will do procedure with anesthesia as she has difficulty laying down flat. (2) Coronary artery disease: Qualifiers: Coronary Disease-Associated Artery/Lesion type: [place] artery [place] vs. transplanted heart: [place] heart Associated angina: without angina Qualified Code(s): I25.10 - Atherosclerotic heart disease of [place] coronary artery without angina pectoris (3) Dyslipidemia (high LDL; low HDL): (4) Chronic hyponatremia: Plan Atrial fibrillation CHF DAXA HTN Chronic anemia Constipation Hypothyroidism Attestations Medical Necessity Statement*: Care expected to cross 2 midnights. Coding Level of Care Code Acute Code for Chg Fwd Diagnoses NSTEMI (non-ST elevated myocardial infarction) I21.4 Coronary artery disease I25.10 Coronary Disease-Associated Artery/Lesion type: [place] artery [place] vs. transplanted heart: [place] heart Associated angina: without angina Dyslipidemia (high LDL; low HDL) E78.5 Chronic hyponatremia E87.1
--- NOTE | 2022-11-14 15:08 | P.PN_ITS ---
Subjective Subjective: No acute events overnight. Patient has remained hemodynamically stable and over afebrile. Yesterday in the evening patient had developed A-fib with RVR again for which she was restarted on amiodarone drip. Since then she is converted back to normal sinus rhythm. Today morning underwent cardiac angiogram with cardiology and was found to have left main disease hemodynamically relevant as per IFR. Patient otherwise remains on 2 L of oxygen supplementation. Seen with multiple family members at bedside. Goals of care discussion done in detail with the patient and patient's family at bedside bedside given cardiac angiogram results. Documented urine output in last 24 hours 1250 cc. Medications: Reviewed: Yes Vitals/I&O/Wt Last Vital Signs Temp 97.6 F 11/14/22 08:45 Pulse 62 11/14/22 09:24 Resp 16 11/14/22 09:24 BP 172/75 11/14/22 09:00 Pulse Ox 98 11/14/22 09:24 O2 Del Method Nasal Cannula 11/14/22 09:24 O2 Flow Rate 2 11/14/22 09:24 FiO2 40 11/11/22 08:26 11/14/22 11/14/22 11/14/22 06:59 14:59 22:59 Intake Total 70 / 1614.703 Balance 70 / 964.703 Weight last 48 hrs Weight 66.848 kg Physical Exam Narrative: General: Patient is frail. Chronically sick appearing, anxious, at start was ramachandran ving difficulty in breathing which improved after being on BiPAP. Head: Temporal wasting. Neck: No JVD. Cardiovascular: No gallops. No murmurs. 3-4+ pitting edema bilaterally. Lungs: Adequate air movement. No wheezing. No Crackles. Skin: No jaundice. No rashes. Abdomen: Normal bowel sounds, abdomen soft and nontender. Genito Urinary: Genital exam not performed since complaints not related. Rectal: Rectal exam not performed since no symptoms indicated blood loss. Extremities: No cyanosis or clubbing. Musculoskeletal: No overt joint deformity. Neurological: Moves all 4 extremities. No myoclonus. Urinary Catheter Management: Lim: Cath Placed During This Visit: yes Reason for Continuing Indwelling Catheter: Accurate Measurement of Urinary Output in Critically Ill Patients Urinary Catheter Date of Insertion: 11/07/22 Urinary Catheter Time of Insertion: 19:00 Data 11/14/22 03:11 11/14/22 03:11 A&P Assessment and plan (1) Cardiogenic shock: In setting of A-fib, non-STEMI and congestive heart failure. Keep mean artery pressure 65. Wean Levophed accordingly. Strict input output charting. (2) Atrial fibrillation with RVR: Continue with amiodarone drip for now. Converted back to normal sinus rhythm. Maintaining sinus heart rate around 70. Decrease drip to 0.5. Will switch over to oral as per protocol within 24 hours. Already on full dose anticoagulation. If maintains in A-fib on and off for the next 24 hours then will plan for long-term anticoagulation otherwise we will hold off. (3) NSTEMI (non-ST elevated myocardial infarction): Troponin cycle trended up. Cardiology consulted. Plan for cardiac angiogram once patient is hemo dynamically stable and if creatinine remains stable. Echocardiogram repeated showed an EF of 28% with LV cavity, moderate LA size and mild RA size increased, mild MR. Continue with aspirin, Plavix, statin. Holding off on beta-candice and Imdur given low blood pressures today. (4) Left main coronary artery disease: (5) Respiratory failure with hypoxia and hypercapnia: Resolved. Patient back to baseline oxygen supplementation. D-dimer elevated 3.4. After age-related modification within normal limits. CT chest results appreciated. Concerns for bilateral pleural effusion with possible atelectasis and mild pneumonia. Respiratory viral panel negative. Sputum culture awaited. MRSA recently negative. Given critically illness for now start patient on IV Zosyn empirically. We will try to finish a 5-day course. Continue with DuoNebs every 6 hour, budesonide twice daily. Oxygen supplementation keeping saturation over 90%. (6) Heart failure: Repeat echocardiogram as above. Patient achieved euvolemia. Strict input/output charting, daily weights. Overall around net euvolemic. Hold off on Lasix for now. Monitor fluid status and can plan for redosing in the evening. Hold off on fluid restrictions for now. (7) Chronic hyponatremia: Acute on chronic hyponatremia. Baseline sodium seems to be around 1 28-1 30. Down to 123. Most likely in setting of IV fluids she was getting for possible cardiac catheterization today. Repeat BMP in evening. Continue with oral salt 3 times daily. Patient slightly lethargic but no other symptoms of hyponatremia. (8) Hypertension: Goal blood pressure with mean over 65-70. Currently cardiogenic shock. Patient states usually blood pressures have been running around 170 for many years. Reluctant to increase antihypertensives too much. States on increasing medication she becomes very sleepy and tired. Multiple antihypertensives at home. Takes clonidine 0.1 twice daily, felodipine 10 mg oral every afternoon, hydralazine 25 mg 3 times daily, Imdur 60 mg oral daily, valsartan 160 mg twice daily. Hold off on antihypertensives as above. Qualifiers: Hypertension type: essential hypertension Qualified Code(s): I10 - Es sential (primary) hypertension (9) Chronic renal insufficiency: Medical reconciliation done for nephrotoxic drugs. Creatinine back to baseline. (10) Hyperkalemia: Telemetry Hold off on home dose potassium. Continue to monitor daily. (11) Coronary artery disease: Qualifiers: Coronary Disease-Associated Artery/Lesion type: [place] artery [place]. transplanted heart: [place] heart Associated angina: without angina Qualified Code(s): I25.10 - Atherosclerotic heart disease of [place] coronary artery without angina pectoris (12) Goals of care, counseling/discussion: Plan Anxiety: Precedex as above. Try to not go higher than 0.2. Patient is at risk of hypercapnic respiratory failure Decrease dose of Celexa to 10 mg oral daily. DVT ppx: Full dose Lovenox will suffice as DVT prophylaxis. Code status: Reconfirmed with the patient and patient's spouse at bedside. Wants to remain full code. Regular diet. Plan for the day: Restart on regular diet. N.p.o. after midnight for high risk PCI to left main. Continue with amiodarone drip. Goal blood pressure less than 140/90 mmHg. Restart Imdur at 30 mg/day. Hold off on any IV fluids or Lasix for now. Remove fluid restrictions. Creatinine slightly elevated to 1.2 today. Repeat BMP in evening. Appreciate cardiology recommendations. Out of bed to chair. Goals of care discussion again done today given cardiac angiogram findings. We discussed that patient was found to have significant left main disease. We discussed that for PCI to left main given her overall cardiac status and baseline health it would be at a higher risk. We discussed that there is a chance of on table mortality. We discussed possible need of balloon pump/Impella, concomitant high risk of lower limb ischemia, possibility of developing cardiogenic shock requiring Levophed or respiratory failure requiring mechanical ventilator with a high chance of renal failure requiring dialysis hemodialysis versus CRRT. Patient verbalized understanding. She states living on hospice is No Life. If there is a chance she will take it. She wants to go ahead with trial of revascularization. Remains full code. Patient remains critically sick. Continue care at ICU. Discharge plan: Plan is to discharge back to [facility] once medically stable. Patient has agreed to stay in the hospital till the evening for now. Family at bedside. Attestations Medical Necessity Statement*: Patient requires further hospitalization for management of CAD with left main disease requiring high risk PCI, cardiogenic shock in setting of severe LV dysfunction, acute on chronic hyponatremia, A-fib with RVR Coding Level of Care Code Critical Care >/= 30 minutes Critical care time (in minutes): 80 The high probability of a clinically significant, sudden or life threatening deterioration, as referenced in this documentation, required my full and direct attention, intervention and personal management. The critical care time shown is in addition to time spent performing any reported separately billable procedures and includes the following: [x] Data and vital sign review and interpretation [x ] Patient assessment, examination and intervention [x] Medication orders and management [x] Patient/Family updates as able [x] Care Coordination and Documentation. Other Coding Information This patient has a high probability of clinically significant, sudden or life threatening deterioration of the patient's (neurological/pulmonary/ca rdiac/renal/ID/endocrine) systems required my full, direct attention, the highest level of physician preparedness for urgent intervention and personal management. I managed/supervised life or organ supporting interventions that required frequent physician assessment. I devoted my full attention in the ICU to the direct care of this patient for the period of time indicated above. Time I spent with family or surrogate(s) is included only if the patient was incapable of providing necessary information or participating in decision making. This time includes the following services provided: Telemetry review Hemodynamic interpretation, assessment and management Review and interpretation of CXR Review and interpretation of lab values Review and interpretation of microbiologic data and culture results Review of medications and administration Review and interpretation of Nutrition requirements and management Discussion of management with other consultants and services Clinical update to family members Diagnoses Cardiogenic shock R57.0 Atrial fibrillation with RVR I48.91 NSTEMI (non-ST elevated myocardial infarction) I21.4 Left main coronary artery disease I25.10 Respiratory failure with hypoxia and hypercapnia J96.91; J96.92 Heart failure I50.9 Chronic hyponatremia E87.1 Hypertension I10 Hypertension type: essential hypertension Chronic renal insufficiency N18.9 Hyperkalemia E87.5 Coronary artery disease I25.10 Coronary Disease-Associated Artery/Lesion type: [place] artery [place] vs. transplanted heart: [place] heart Associated angina: without angina Goals of care, counseling/discussion Z71.89
[2022-11-14 18:42] LABS: Blood Urea Nitrogen 42 mg/dL (8-23); Calcium 7.7 mg/dL (8.5-10.5); Carbon Dioxide 24 mmol/L (22-29); Chloride 87 mmol/L (98-107); Glucose 119 mg/dL (65-115); Osmolality Calculated 268 mOsm/kg (285-295); Sodium 123 mmol/L (136-145)
[2022-11-14 18:51] LABS: Anion Gap 16.1 (5-19); Potassium 4.1 mmol/L (3.5-5.1)
--- NOTE | 2022-11-14 19:42 | PC.NURSE ---
Shift summary: Pt alert and oriented but seems more drained today. She remains in sinus/ first degree block this shift. Amiodarone gtt remains infusing at 0.5mcg/min this shift. She went to catheter builder today. TR band was on right radial. It was able to be removed around 1400, it started bleeding again . Pressure held for 5 minutes, no further bleeding noted at cath site. There is a bruise at the site now. She was agreeable to get out of bed this afternoon to chair. Sat up for about 4 hours again today. We just assisted her back to the bed. Her pain complaints are her back and her bottom. This am Stage 2 noted on her coccyx. She still declines offers for repositioning several times. No changes in edema form yesterday. Family remains very attentive to her every need. Urine output less today, 360ml output. No Bm noted today or yesterday.
[2022-11-14] MEDS: atorvastatin 40 mg Tablet PO (20:53)
[2022-11-14] MEDS: FUROsemide 10 mg/mL SDV 2mL 20 MG IVP (21:02)
[2022-11-15] VITALS (94 sets, daily range): BP systolic 121–171; BP diastolic 46–73; PULSE 53–84; RESP 8–26; TEMP 36.4–37.3; O2SAT 93–100; BMI 29.5
[2022-11-15] MEDS: morphine 4 mg/mL SDV 1 mL 1 MG IVP ×5 (00:32→22:36)
[2022-11-15] MEDS: piperacillin-tazobactam 3.375 GM in sodium chloride 0.9% (plus) 50 ML IV ×3 (03:03→17:31)
[2022-11-15] MEDS: HYDROcodone-acetaminophen 10-325 mg Tablet 1 TAB PO ×2 (03:18→10:37)
[2022-11-15 03:43] LABS: Basophils % 0.2 %; Eosinophils # 0.1 10^3/uL (0.0-0.8); Eosinophils % 1.3 %; Hematocrit 27.6 % (37.0-47.0); Hemoglobin 8.5 g/dL (11.5-15.3); Lymphocytes # 0.9 10^3/uL (0.8-4.8); Lymphocytes % 9.6 %; Mean Corpuscular HGB Conc 30.8 g/dL (30.0-36.0); Mean Corpuscular Hemoglobin 31.1 pg (28.0-34.0); Mean Corpuscular Volume 101.1 fl (81-99); Mean Platelet Volume 10.7 fL (7.4-10.4); Monocytes % 10.6 %; Neutrophils # 6.97 10^3/uL (1.8-7.7); Neutrophils % 78.1 %; Nucleated Red Blood Cells % 0 %; Platelet Count 350 10^3/cmm (130-400); Red Blood Count 2.73 10^6/uL (4.1-5.3); Red Cell Distribution Width 15.1 % (12.1-15.1); White Blood Count 8.9 10^3/uL (4.0-10.0)
[2022-11-15 04:00] LABS: Alanine Aminotransferase 9 U/L (0-33); Albumin Level 2.4 g/dL (3.5-5.2); Alkaline Phosphatase 75 U/L (35-105); Anion Gap 11.9 (5-19); Aspartate Amino Transferase 13 U/L (0-32); Blood Urea Nitrogen 40 mg/dL (8-23); Calcium 8.2 mg/dL (8.5-10.5); Carbon Dioxide 31 mmol/L (22-29); Chloride 89 mmol/L (98-107); Globulin 3.6 g/dL (1.3-4.6); Glucose 114 mg/dL (65-115); Osmolality Calculated 277 mOsm/kg (285-295); Potassium 3.9 mmol/L (3.5-5.1); Sodium 128 mmol/L (136-145); Total Bilirubin 0.3 mg/dL (0.15-1.2)
[2022-11-15] MEDS: levothyroxine 88 mcg Tablet PO (04:36)
--- NOTE | 2022-11-15 08:03 | W.PM.OPSUD ---
Surgery/Procedure H&P Update DATE OF PROCEDURE: November 15, 2022 DATE H&P PERFORMED: 11/10/22 CHANGES TO PREVIOUS DOCUMENTATION: Patient had a coronary angiogram yesterday. She has severe ostial to mid left main artery stenosis. Also has a proximal LAD stenosis. Findings were confirmed with IFR. All options were given to patient and family including medical therapy versus hospice care versus high risk PCI of left main artery. Given her frailty and medical conditions she is not a good surgical candidate and does not want to have open heart procedure. Patient and family have decided to undergo the PCI of left main artery. Risks including renal dysfunction leading to dialysis, bleeding, vascular complications, cardiac arrest, have been discussed in detail. Patient and family understand the risks and want to proceed. Plan to perform, high risk PCI with anesthesia support. PREOP DIAGNOSIS: NSTEMI/LV dysfunction/ severe stenosis of left main artery PRIMARY INDICATION FOR PROCEDURE: NSTEMI/LV dysfunction/ severe stenosis of left main artery PLANNED PROCEDURE: Operation Date: 11/15/22 08:30 Proposed Procedures p Percutaneous Coronary Intervention of the left main artery(Left) - Edson Ahumada M.D Anesthesia team administering anesthesia
--- NOTE | 2022-11-15 08:18 | XACV_ITS ---
Exam Room: [facility] Ht: 155 cm Wt: 64 kg BSA: 1.68 m2 Gender: Female : 1940 Any Known Allergies: Other Exam Priority: Routine Procedure(s): Procedure Description: Diagnostic procedure Procedure Description: PCI procedure Procedure Description: Aortogram Procedure Description: Coronary IVUS Procedure Description: Drug Eluting Coronary Stent Procedure Description: PTCA Procedure Description: Coronary Angiography Diagnostic Cath Status: Urgent Diagnostic Findings * INDICATION: 82 Year old woman who had NSTEMI, significant LV dysfunction and cardiogenic shock had a coronary angiogram yesterday. She has severe ostial to mid left main artery stenosis. Findings were confirmed with IFR. All options were given to patient and family including medical therapy versus hospice care versus high risk PCI of left main artery. Given her frailty and medical conditions she is not a good surgical candidate and does not want to have open heart procedure. Patient and family have decided to undergo the PCI of left main artery. Risks including renal dysfunction leading to dialysis, bleeding, vascular complications, cardiac arrest, have been discussed in detail. Patient and family understand the risks and want to proceed. Plan to perform, high risk PCI with anesthesia support. * Ostial to mid left main artery has severe 70% stenosis.. * Left Anterior Descending has patent prior stent. Has moderate disease proximal to prior stent. * Circumflex has is patent with moderate proximal stenosis. * Right Coronary Artery was not injected. * This is a staged PCI of left main artery. For full diagnostic catheterization report, please refer to cath report from 11/14/2022. * Coronary angiography shows right dominance. PCI Status: Urgent PCI Indication: NSTE - ACS Interventional Findings * Procedure detail: Initial plan was to perform high risk PCI of left main artery with LV support. Bilateral common femoral artery access was obtained. Wire had difficulty crossing into mid abdominal aorta. Using Glidewire we crossed this area and a pigtail was used to obtain abdominal aortogram. Mid abdominal aorta had hazy looking stenosis. Patient also had significant scoliosis and abdominal aortic tortuosity. Decision was made to proceed with PCI without LV support. We engaged left main artery with XB 3.5 guide catheter. IV heparin was administered to maintain anticoagulation. 0.014 run-through guidewire was used to cross left main artery stenosis and was put in distal LAD. We used IVUS to size the vessel. This was followed by balloon angioplasty with 3.0 x 8 mm semicompliant balloon. We then placed a 3.5 x 12 mm resolute Vanessa drug-eluting stent. IVUS was again performed that showed ostium was still uncovered with stent. Cranial views confirmed it. We placed a second overlapping 4.0 x 8 mm resolute [place] drug-eluting stent. Stents were postdilated with a 4.0 x 8 mm NC balloon. Final angiogram was performed that showed excellent stent expansion, no residual stenosis and NADEEM-3 flow. Guidewire and guide catheter were removed. 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 * Left Main to Left Main: 70% stenosis treated with a MDT R VANESSA 4.0X08 EDUARDO, and MDT NC EUPHORA RX [id number] BALLOON. 0% residual stenosis, NADEEM: 3 flow. * Left Main: 70% stenosis treated with a AB TREK 3.00X08 RX BALLOON, MDT R VANESSA 3.5X12 EDUARDO, and MDT NC EUPHORA RX [id number] BALLOON. 0% residual stenosis, NADEEM: 3 flow. Conclusions 1. Severe left main artery stenosis s/p successful revascularization with EDUARDO x2. 2. Left Main to Left Main was treated with a Drug Eluting Stent, and Balloon. 3. Left Main was treated with a Balloon, Drug Eluting Stent, and Balloon. Recommendations * Dual antiplatelet therapy with aspirin and Plavix for at least 1 year. * Transfer back to ICU. * High intensity statin therapy. * Outpatient cardiology follow-up in 4 weeks. Interventional RX Recommendation: PCI w/o planned CABG Diagnostic RX Recommendation: PCI w/o planned CABG Anticoagulation: Heparin Pressures Phase:Rest AO : 130 / 50 ( 82 ) @ 10:17:00 AM 112 / 50 ( 75 ) @ 10:29:00 AM 112 / 48 ( 74 ) @ 10:35:00 AM 111 / 47 ( 73 ) @ 10:40:00 AM 101 / 46 ( 69 ) @ 10:43:00 AM Clinical Evaluation EBL: 5mL-10mL Procedural Details Pre-Procedure Time Out. Identified patient by full name and date of as verbalized by the patient/guarantor. Does the consent match the physician's order: Yes. Accurate & Complete Informed Consent: Yes. Inpatient/Outpatient History & Physical on Chart: Yes. If H&P is completed, is and addenduem needed: No; If yes, is the addendum complete: Yes. Visualize and Verify Site with Patient/Guarantor: N/A. Relevant Radiology Images available: Yes. Pre-op teaching completed and patient verbalized understanding. The risks, benefits, and alternatives of sedation and/or procedure were discussed by physician. The patient agrees to continue. Procedure started. [facility] Clinical Fraility Score: 7: Severely Frail. Wood Die Maker Indications: ACS > 24 hours. Chest Pain Symptom Assessment: Atypical Angina. Correct patient, site and procedure confirmed by cath team. Current diagnosis: NSTEMI. PERRLA. 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 Lungs clear x 5 lobes. Hemodynamic formulas in Rest were re-calculated based on hemoglobin value from 11/15/2022 12:00:00 AM. Anesthesia arrived to sedate patient. A 22 gauge IV was started in the right forearm using aseptic technique. RT Mamie(R) was relieved by Radha Horn RN as monitoring person. IV Fluids: 0.9% NaCl at KVO. 400 mL infused prior to hatchery laborer. Pre Procedural Pulses: bilateral dorsalis pedis was 2+. Oxygen started at 4liters/min via nasal canula. right groin was prepped with chloroprep then draped in the usual sterile fashion. left groin was prepped with chloroprep then draped in the usual sterile fashion. Physician notified. Baseline sample Acquired. HR: 78 BPM. Physician arrived. Physician scrubbed in. Immediate Pre-Procedure Time Out. Correct Patient: Yes; Correct Procedure: Yes; Correct Site: Yes; Correct Patient Position: Yes; Correct Supplies: Yes; Dried Flammable Prep: Yes; Blood Products Available: N/A;. Lidocaine 1% infiltrated to the right groin. Arterial access obtained with micropuncture set. Lidocaine 1% infiltrated to the left groin. Arterial access obtained with micropuncture set. A 5 sammarinese Angled Pig catheter in over wire. Standard wire removed. Glidewire inserted. Wire and catheter out. A 6 sammarinese JR4 catheter in over wire in L groin access site. Catheter out over Glidewire. A 5 sammarinese Angled Pig catheter in over wire. Glidewire out. Abdominal Aortogram performed in DAVIS @ 10 mL/second for a total of 30 mL. Exchange wire inserted. Pigtail out. AP pads applied to patient's chest. Sheath upsized to a 7 Fr. 6 sammarinese XB 3.5 guide catheter was inserted over the wire. Runthrough guidewire was advanced through the guide catheter to lesion in L main. IVUS catheter inserted. IVUS run performed of L Main lesion. Balloon inserted to lesion in the L Main. Inflation number : 1 A AB TREK 3.00X08 RX BALLOON was prepped and advanced across the LMCA , then inflated to 8 GERARDO for 0:11 seconds. Inflation number: 2 The AB TREK 3.00X08 RX BALLOON was reinflated across the LMCA, to 12 GERARDO for 0:13 seconds. Balloon out. Stent inserted to lesion in the L Main. Inflation Number : 3 A ZORA Bucio VANESSA 3.5X12 EDUARDO -Lot Number# [id number] Exp 08/08/2024 was prepped and advanced across the LMCA. The stent was deployed at 12 GERARDO for 0:15 seconds. Stent balloon out over wire. Results checked. IVUS catheter inserted. IVUS run performed of L Main. IVUS catheter removed. Balloon inserted to lesion in the L main. Inflation number : 4 A ZORA WARD EUPHORA RX [id number] BALLOON was prepped and advanced across the LMCA , then inflated to 12 GERARDO for 0:12 seconds. Inflation number: 5 The MDT NC EUPHORA RX [id number] BALLOON was reinflated across the LMCA, to 12 GERARDO for 0:07 seconds. Balloon out. Results checked. Stent inserted to lesion in the Ostial L MAin. Inflation Number : 1 A MDT R VANESSA 4.0X08 EDUARDO -Lot Number# [id number] Exp 10/20/2023 was prepped and advanced across the Ostial LMCA1. The stent was deployed at 12 GERARDO for 0:16 seconds. Stent balloon out. Results checked. ACT drawn. Results 364 seconds. Therapeutic limits - pre-heparin administration 90-150 seconds and monitoring heparin during a vascular procedure >250 seconds. Balloon inserted to lesion in the Ostial L Main. Inflation number: 2 The MDT NC EUPHORA RX [id number] BALLOON was reinflated across the LMCA1, to 12 GERARDO for 0:11 seconds. Inflation number: 3 The MDT NC EUPHORA RX [id number] BALLOON was reinflated across the LMCA1, to 12 GERARDO for 0:07 seconds. Balloon out. Results checked. Wire out. Guide catheter out over exchange wire. Long 7Fr sheath exchanged for short 7 Fr sheath in L groin. A Right femoral angiogram was performed to determine safe placement of closure device. A Suture was successful obtaining hemostatsis at the Right Femoral artery insertion site. A Suture was successful obtaining hemostatsis at the Left Femoral artery insertion site. Sheath(s) sutured into position with 2-0 silk and sterile 4x4's and Op-site applied over the site. No oozing or signs and symptoms of hematoma noted. Post Procedure: Pulses reassessed and unchanged. PERRLA. 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 No VTE prophylaxis required. Post-op diagnosis: Severe L Main Stenosis S/P PCI x2 stents. Medication's Wasted: Other = Lasix 80 mg. Total IV fluids: 75 mL. Complications: none. Estimated blood loss: 5mL-10mL. Responsiveness - Normal response to verbal stimuli; alert and oriented, PERRLA. Airway - Unaffected, no intervention required; spontaneous ventilation. Circulation: W/N/L, pulses unchanged. Nausea/Vomiting: No. Procedure completed. Patient transferred by bed to ICU. Vital chart was stopped. Access Site Site: Right Femoral artery Sheath Size: 6 Fr Hemostasis Method: Suture Hemostasis Success: Successful Site: Left Femoral artery Sheath Size: 6 Fr Hemostasis Method: Suture Hemostasis Success: Successful Procedure Medications Start: 8:22 AM Stop: 8:22 AM Medication: Aspirin Amount: 81 mg Route: P.O. Start: 8:23 AM Stop: 8:23 AM Medication: Plavix Amount: 75 mg Route: P.O. Start: 8:54 AM Stop: 8:54 AM Medication: Fentanyl Amount: 50 mcg Route: I.V. Start: 9:16 AM Stop: 9:16 AM Medication: Lasix (furosemide) Amount: 20 mg Route: I.V. Start: 9:17 AM Stop: 9:17 AM Medication: Heparin Amount: 6000 units Route: I.V. Start: 9:26 AM Stop: 9:26 AM Medication: Heparin Amount: 1000 units Route: I.V. I, the attending physician, have reviewed and verified all procedure medications. Yes, all medications given per verbal order History/Risk Factors Hypertension: Yes Dyslipidemia: Yes Peripheral Arterial Disease (PAD): No Myocardial Infarction (OR): Yes Obesity: Yes Renal Disease: No Tobacco Use: Never Prior Interventions PCI: No CABG: No Valve Surgery: No Report Signatures Finalized by Edson Ahumada MD on 11/19/2022 06:10 PM
--- NOTE | 2022-11-15 08:34 | P.ANESASSM_ITS ---
Pre-Anesthetic Assessment Height/Weight: Height 1.55 m Weight 70.76 kg Temp Pulse Resp BP Pulse Ox O2 Del Method O2 Flow Rate 99.1 F 70 17 171/60 100 Nasal Cannula 3 11/15/22 04:00 11/15/22 06:00 11/15/22 07:29 11/15/22 04:00 11/15/22 07:29 11/14/22 20:00 11/14/22 20:00 FiO2 40 11/11/22 08:26 Preop Diagnosis: NSTEMI/ LV dysfunction Operation Date: 11/12/22 12:00 Proposed Procedures p Cardiac Catheterization(Left) - Susan Marquez MD Operation Date: 11/14/22 08:00 Proposed Procedures p Cardiac Catheterization(Not Applicable) - Edson Ahumada M.D Operation Date: 11/15/22 08:30 Proposed Procedures p Percutaneous Coronary Intervention of the left main artery(Left) - Edson Ahumada M.D Familial anesthetic complications: none Was Beta Gino taken within 24 hours: Yes Was Clonidine taken within 24 hours: N/A Last Intake: 23:00 Social No alcohol and No tobacco Exam alert, oriented x 3 and clear to auscultation bilaterally afib with rvr Airway Submandibular: within normal limits Cervical ROM: within normal limits Mallampati: Class II Dentition: full Pulmonary Chronic Obstructive Pulmonary Disease, Cough, Exertional Dyspnea and Shortness of Breath CV/HEM Atrial Fibrillation, Unstable Angina, Arrythmia, Coronary Artery Disease, Congestive Heart Failure, Hypertension, Myocardial Infarction (ef 28 noted) and Peripheral Vascular Disease Chronic Renal Insufficiency Hepatic None reported GI None reported Metabolic Thyroid Disease Musc/skel Lower Back Pain, Scoliosis and Weakness Neuropsych None reported Anesthetic Plan Anesthesia: MAC Risk of > 500 ml blood loss (7ml/kg in children): No Medications/Allergies Home Medications Medication Instructions Recorded Confirmed Last Taken Type hydrocodone 10 mg-acetaminophen 1 tab PO Q4H PRN Pain 30 days #180 09/27/22 11/07/22 11/07/22 Rx 325 mg tablet tabs felodipine 10 mg tablet,extended 10 mg PO DAILY@08 10/08/22 11/07/22 11/07/22 History release 24 hr gabapentin 100 mg capsule 100 mg PO BID 10/08/22 11/07/22 11/07/22 History tamsulosin 0.4 mg capsule 0.4 mg PO BID 10/08/22 11/07/22 11/07/22 History albuterol sulfate 90 mcg/actuation 1 inh inhalation Q6H PRN shortness 10/10/22 11/07/22 Unknown Rx aerosol inhaler of breath or wheezing #8.5 grams ondansetron HCl 4 mg tablet 4 mg PO Q6H PRN nausea and 10/14/22 11/07/22 Unknown Rx vomiting #30 tabs benzonatate 100 mg capsule 100 mg PO TID PRN Cough 10/16/22 11/07/22 Unknown History clonidine HCl 0.1 mg tablet 0.1 mg PO BID #60 tabs 10/27/22 11/07/22 11/07/22 Rx hydralazine 25 mg tablet 25 mg PO TID #90 tabs 10/27/22 11/07/22 11/07/22 Rx lactulose 10 gram/15 mL (15 mL) 10 g (15 mL) PO DAILY PRN 10/29/22 11/07/22 Unknown Rx oral solution constipation #473 mL acetaminophen 325 mg tablet 650 mg PO Q6H PRN Pain 11/07/22 11/07/22 Unknown History (Tylenol) bisacodyl 10 mg rectal suppository 10 mg SC DAILY PRN Constipation 11/07/22 11/07/22 Unknown History (Dulcolax (bisacodyl)) bisacodyl 5 mg tablet,delayed 10 mg PO DAILY PRN Constipation 11/07/22 11/07/22 Unknown History release (Dulcolax (bisacodyl)) furosemide 20 mg tablet 20 mg PO DAILY@11/07/22 11/07/22 11/07/22 History isosorbide mononitrate 60 mg 60 mg PO DAILY@11/07/22 11/07/22 11/07/22 History tablet,extended release 24 hr levothyroxine 88 mcg tablet 88 mcg PO DAILY@11/07/22 11/07/22 11/07/22 History magnesium hydroxide 400 mg/5 mL 30 ml PO .EVERY 72 HOURS PRN if no 11/07/22 11/07/22 Unknown History oral suspension (Milk of Magnesia) bm in 3 days *do not give to renal pts* magnesium oxide 400 mg (241.3 mg 400 mg PO BID 11/07/22 11/07/22 11/07/22 History magnesium) tablet menthol 0.44 %-zinc oxide 20.6 % See Rx Instructions .Route .COMPLEX 11/07/22 11/07/22 11/07/22 History topical ointment (Calmoseptine) potassium chloride 20 mEq 20 meq PO DAILY@08 11/07/22 11/07/22 11/07/22 History tablet,extended release(part/cryst) (Klor-Con M) sodium phosphates 19 gram-7 118 ml SC DAILY PRN Constipation 11/07/22 11/07/22 Unknown History gram/118 mL enema (Fleet Enema) valsartan 160 mg tablet 160 mg PO BID 11/07/22 11/07/22 11/07/22 History Allergies Allergy/AdvReac Type Severity Reaction Status Date / Time prazosin Allergy Severe ALGY-Difficulty Verified 11/07/22 12:55 Breathing Current Medications Generic Name Dose Route Start Last Admin Trade Name Freq PRN Reason Stop Dose Admin Hydrocodone Bitart/Acetaminophen 1 tab 11/07/22 17:16 11/15/22 03:18 Hydrocodone-Acetaminophen 10-325 Mg Tablet PO 1 tab Q4H PRN Administration Pain Aspirin 81 mg 11/11/22 09:00 11/14/22 11:08 Aspirin 81 Mg Chew Tablet PO 81 mg DAILY IMMANUEL Administration Atorvastatin Calcium 40 mg 11/10/22 21:00 11/14/22 20:53 Atorvastatin 40 Mg Tablet PO 40 mg BEDTIME IMMANUEL Administration Bisacodyl 10 mg 11/07/22 17:16 11/11/22 13:56 Bisacodyl 5 Mg Tablet PO 10 mg DAILY PRN Administration Constipation Budesonide 0.5 mg 11/10/22 20:00 11/15/22 00:15 Budesonide 0.5 Mg/2 Ml Neb INHALATION Not Given BID.RESPIRATORY IMMANUEL Citalopram Hydrobromide 10 mg 11/13/22 09:00 11/14/22 11:07 Citalopram 20 Mg Tablet PO 10 mg DAILY IMMANUEL Administration Clopidogrel Bisulfate 75 mg 11/11/22 09:00 11/14/22 11:07 Clopidogrel 75 Mg Tablet PO 75 mg DAILY IMMANUEL Administration Enoxaparin Sodium 60 mg 11/10/22 11:45 11/15/22 00:55 Enoxaparin 60 Mg/0.6 Ml Syringe SUBCUT Not Given Q12H IMMANUEL Furosemide 40 mg 11/12/22 08:00 11/12/22 08:15 Furosemide 40 Mg Tablet PO Not Given BID@08,16 IMMANUEL Gabapentin 100 mg 11/07/22 18:00 11/14/22 17:47 Gabapentin 100 Mg Capsule PO 100 mg BID IMMANUEL Administration Hydralazine HCl 50 mg 11/08/22 15:00 11/11/22 09:39 Hydralazine 50 Mg Tablet PO 50 mg TID IMMANUEL Administration Dexmedetomidine HCl 400 mcg/ 104 mls @ 0 mls/hr 11/10/22 22:15 11/12/22 07:30 Sodium Chloride IV 0 mcg/kg/hr .Q0M IMMANUEL 0 mls/hr Titration Protocol Per Protocol Piperacillin Sod/Tazobactam 50 mls @ 12.5 mls/hr 11/11/22 10:30 11/15/22 03:03 Sod 3.375 gm/ Sodium Chloride IV 11/16/22 10:29 12.5 mls/hr Q8H IMMANUEL Administration Protocol As Directed Norepinephrine Bitartrate 4 mg 254 mls @ 0 mls/hr 11/12/22 07:00 11/12/22 10:00 / Dextrose IV 0 mcg/min .Q0M IMMANUEL 0 mls/hr Titration Protocol Per Protocol Amiodarone HCl 900 mg/ 518 mls @ 17.267 mls/hr 11/13/22 18:15 11/15/22 00:56 Dextrose/ IV Miscellaneous IV 0.5 mg/min Supplies CONT IMMANUEL 17.27 mls/hr Administration 0.5 MG/MIN Isosorbide Mononitrate 30 mg 11/14/22 09:56 11/14/22 11:09 Isosorbide Mononitrate Er 30 Mg Tablet PO 30 mg DAILY IMMANUEL Administration Levothyroxine Sodium 88 mcg 11/08/22 05:00 11/15/22 04:36 Levothyroxine 88 Mcg Tablet PO 88 mcg DAILY@05 IMMANUEL Administration Losartan Potassium 50 mg 11/07/22 18:00 11/11/22 10:03 Losartan 50 Mg Tablet PO Not Given BID IMMANUEL Magnesium Hydroxide 30 ml 11/11/22 16:56 11/11/22 17:08 Magnesium Hydroxide 30 Ml Udc PO 30 ml DAILY PRN Administration CONSTIPATION Magnesium Oxide 400 mg 11/07/22 18:00 11/14/22 17:47 Magnesium Oxide 400 Mg Tablet PO 400 mg BID IMMANUEL Administration Metoprolol Tartrate 50 mg 11/10/22 21:00 11/11/22 22:27 Metoprolol Tartrate 50 Mg Tablet PO Not Given BID@0900,2100 [facility] Morphine Sulfate 1 mg 11/12/22 05:49 11/15/22 07:29 Morphine 4 Mg/Ml Sdv 1 Ml IVP 1 mg Q6H PRN Administration SEVERE PAIN Sodium Chloride 1 gm 11/07/22 21:00 11/14/22 20:53 Sodium Chloride 1 Gm Tablet PO 1 gm TID IMMANUEL Administration Tamsulosin HCl 0.4 mg 11/14/22 09:00 11/14/22 11:09 Tamsulosin 0.4 Mg Capsule PO 0.4 mg DAILY IMMANUEL Administration [facility] Anesthesia Medical History (Updated 11/14/22 @ 15:16 by Amari Avila MD) Acute exacerbation of CHF (congestive heart failure) Acute hyponatremia Anemia Aortic stenosis Cervical radiculopathy Chronic hyponatremia Chronic hyponatremia Chronic low back pain Has had recent back surgery Chronic respiratory failure with hypoxia Community acquired pneumonia Congestive heart failure Corneal abrasion, right Coronary artery disease Degenerative scoliosis Dehydration DNR (do not resuscitate) Elevated troponin Encounter for pre-operative cardiovascular clearance Facet arthritis, degenerative, lumbar spine Fluid overload Generalized weakness History of NE (myocardial infarction) 2018--had coronary artery stent placed Hypertension Chronic hypertension diagnosed at the age of 31. Follows up with cardiology Dr. Castellanos as well as her primary care provider. Hypertensive urgency Hypo-osmolar hyponatremia Serum osmolarity 255, urine osmolality 288, urine sodium 73, hypervolemic hyponatremia Hypoxia Lumbar stenosis with neurogenic claudication Malaise and fatigue Nausea No pertinent past medical history Denies diabetes, asthma, seizures, DVT/PE PCP: Dr. Bui Peripheral neuropathy Pneumonia Right lower lobe pneumonia Uncontrolled hypertension Vaginal prolapse 09/30/2021--grade 3-4 cystocele, grade 3 vault prolapse, grade 1 rectocele Surgical History History of back surgery March 2021--performed by [place]. Nunez at [facility] [place]. History of heart artery stent 2018 after heart attack History of tubal ligation In her mid 30s---done through supra umbilical minilaparotomy incision S/P hysterectomy Vaginal hysterectomy for prolapse performed by Dr. George in 2018. Her ovaries were not removed. Family History Mother Heart disease Hypertension Colon cancer diagnosed in her late 60s Daughter Heart disease Family/Other Breast cancer maternal aunt, age at diagnosis unknown Social History Smoking and tobacco status: never smoked Alcohol intake: never Substance/Drug Use: never Data Anesthesia 11/15/22 03:07 11/15/22 03:07 Short CBC 11/14/22 11/15/22 Range/Units 03:11 03:07 WBC 9.9 8.9 (4.0-10.0) 10^3/uL Hgb 8.9 L 8.5 L (11.5-15.3) g/dL Hct 28.5 L 27.6 L (37.0-47.0) % MCV 99.7 H 101.1 H (81-99) fl Plt Count 324 350 (130-400) 10^3/cmm Neut % (Auto) 84.9 78.1 % Neut # (Auto) 8.37 H 6.97 (1.8-7.7) 10^3/uL BMP 11/14/22 11/14/22 11/15/22 03:11 18:00 03:07 Sodium 127 L 123 L 128 L Potassium 3.9 4.1 3.9 Chloride 88 L 87 L 89 L Carbon Dioxide 29 24 31 H BUN 44 H 42 H 40 H Creatinine 1.2 H 1.1 H 1.3 H Glucose 108 119 H 114 Calcium 8.1 L 7.7 L 8.2 L Liver Function 11/14/22 11/15/22 Range/Units 03:11 03:07 Total Bilirubin 0.4 0.3 (0.15-1.2) mg/dL AST 14 13 (0-32) U/L ALT 10 9 (0-33) U/L Alkaline Phosphatase 78 75 (35-105) U/L Albumin 2.4 L 2.4 L (3.5-5.2) g/dL Cardiac Studies: Echocardiogram 10/30/22 Echocardiogram Limited Views 11/10/22 Sestamibi Stress Test (Cardiology) 03/10
[2022-11-15] MEDS: magnesium oxide 400 mg tablet PO ×2 (10:37→17:22)
[2022-11-15] MEDS: gabapentin 100 mg Capsule PO ×2 (10:37→17:22)
[2022-11-15] MEDS: sodium chloride 1 gm Tablet PO ×3 (10:37→20:02)
[2022-11-15] MEDS: citalopram 20 mg Tablet 10 MG PO (10:37)
[2022-11-15] MEDS: tamsulosin 0.4 mg Capsule PO (10:37)
[2022-11-15] MEDS: isosorbide mononitrate ER 30 mg Tablet PO (10:37)
--- NOTE | 2022-11-15 11:26 | PC.NURSE ---
MOrning dose of morphine pain followup not completed. Patient was taken to picket [employer].
--- NOTE | 2022-11-15 11:29 | PM.PN ---
Subjective Subjective: Patient was seen and examined this morning she underwent left main PCI. Her vitals and labs have been reviewed. Medications: Reviewed: Yes Medication Review Details: Generic Name Dose Route Start Last Admin Trade Name Freq PRN Reason Stop Dose Admin Hydrocodone Bitart /Acetaminophen 1 tab 11/07/22 17:16 11/15/22 03:18 Hydrocodone-Acet aminophen 10-325 M g Tablet PO 1 tab Q4H PRN Administration Pain Aspirin 81 mg 11/11/22 09:00 11/15/22 10:37 Aspirin 81 Mg Ch ew Tablet PO Not Given DAILY IMMANUEL Atorvastatin Calci um 40 mg 11/10/22 21:00 11/14/22 20:53 Atorvastatin 40 Mg Tablet PO 40 mg BEDTIME IMMANUEL Administration Bisacodyl 10 mg 11/07/22 17:16 11/11/22 13:56 Bisacodyl 5 Mg T ablet PO 10 mg DAILY PRN Administration Constipation Budesonide 0.5 mg 11/10/22 20:00 11/15/22 09:13 Budesonide 0.5 M g/2 Ml Neb INHALATION Not Given BID.RESPIRATORY S CH Citalopram Hydrobr omide 10 mg 11/13/22 09:00 11/15/22 10:37 Citalopram 20 Mg Tablet PO 10 mg DAILY IMMANUEL Administration Clopidogrel Bisulf ate 75 mg 11/11/22 09:00 11/15/22 10:38 Clopidogrel 75 M g Tablet PO Not Given DAILY IMMANUEL Enoxaparin Sodium 60 mg 11/10/22 11:45 11/15/22 00:55 Enoxaparin 60 Mg /0.6 Ml Syringe SUBCUT Not Given Q12H IMMANUEL Furosemide 40 mg 11/12/22 08:00 11/12/22 08:15 Furosemide 40 Mg Tablet PO Not Given BID@08,16 IMMANUEL Gabapentin 100 mg 11/07/22 18:00 11/15/22 10:37 Gabapentin 100 M g Capsule PO 100 mg BID IMMANUEL Administration Hydralazine HCl 50 mg 11/08/22 15:00 11/11/22 09:39 Hydralazine 50 M g Tablet PO 50 mg TID IMMANUEL Administration Dexmedetomidine HC l 400 mcg/ 104 mls @ 0 mls/h r 11/10/22 22:15 11/12/22 07:30 Sodium Chloride IV 0 mcg/kg/hr .Q0M IMMANUEL 0 mls/hr Titration Protocol Per Protocol Piperacillin Sod/T azobactam 50 mls @ 12.5 mls /hr 11/11/22 10:30 11/15/22 11:25 Sod 3.375 gm/ So dium Chloride IV 11/16/22 10:29 12.5 mls/hr Q8H IMMANUEL Administration Protocol As Directed Norepinephrine Bit artrate 4 mg 254 mls @ 0 mls/h r 11/12/22 07:00 11/12/22 10:00 / Dextrose IV 0 mcg/min .Q0M IMMANUEL 0 mls/hr Titration Protocol Per Protocol Amiodarone HCl 900 mg/ 518 mls @ 17.267 mls/hr 11/13/22 18:15 11/15/22 00:56 Dextrose/ IV Misce llaneous IV 0.5 mg/min Supplies CONT IMMANUEL 17.27 mls/hr Administration 0.5 MG/MIN Isosorbide Mononit rate 30 mg 11/14/22 09:56 11/15/22 10:37 Isosorbide [place] itrate Er 30 Mg Ta blet PO 30 mg DAILY [facility] Administration Levothyroxine Sodi um 88 mcg 11/08/22 05:00 11/15/22 04:36 Levothyroxine 88 Mcg Tablet PO 88 mcg DAILY@05 [facility] Administration Losartan Potassium 50 mg 11/07/22 18:00 11/11/22 10:03 Losartan 50 Mg T ablet PO Not Given BID [facility] Magnesium Hydroxid e 30 ml 11/11/22 16:56 11/11/22 17:08 Magnesium Hydrox mely 30 Ml Udc PO 30 ml DAILY PRN Administration CONSTIPATION Magnesium Oxide 400 mg 11/07/22 18:00 11/15/22 10:37 Magnesium Oxide 400 Mg Tablet PO 400 mg BID [facility] Administration Metoprolol Tartrat e 50 mg 11/10/22 21:00 11/11/22 22:27 Metoprolol Tartr ate 50 Mg Tablet PO Not Given BID@0900,2100 [facility] Morphine Sulfate 1 mg 11/12/22 05:49 11/15/22 07:29 Morphine 4 Mg/Ml Sdv 1 Ml IVP 1 mg Q6H PRN Administration SEVERE PAIN Sodium Chloride 1 gm 11/07/22 21:00 11/15/22 10:37 Sodium Chloride 1 Gm Tablet PO 1 gm TID IMMANUEL Administration Tamsulosin HCl 0.4 mg 11/14/22 09:00 11/15/22 10:37 Tamsulosin 0.4 M g Capsule PO 0.4 mg DAILY IMMANUEL Administration Vitals/I&O/Wt Last Vital Signs Temp 97.7 F 11/15/22 07:45 Pulse 71 11/15/22 08:00 Resp 17 11/15/22 08:00 BP 160/73 11/15/22 09:00 Pulse Ox 98 11/15/22 07:45 O2 Del Method Nasal Cannula 11/14/22 20:00 O2 Flow Rate 3 11/14/22 20:00 FiO2 40 11/11/22 08:26 11/14/22 11/15/22 11/15/22 22:59 06:59 14:59 Intake Total 760 / 760 558 / 1318 50 / 50 Output Total 600 / 600 200 / 800 75 / 75 Balance 160 / 160 358 / 518 -25 / -25 Weight last 48 hrs Weight 70.76 kg Weight 66.848 kg Physical Exam Const: COMMON NORMALS: patient oriented x3 HENMT: COMMON NORMALS: normocephalic and atraumatic HEAD & SCALP: normocephalic and atraumatic Resp: COMMON NORMALS: clear to auscultation bilaterally EFFORT & INSPECTION: Yes symmetric chest movement AUSCULTATION: clear to auscultation bilaterally Cardio: COMMON NORMALS: regular rate, regular rhythm, S1 normal heart sound present, S2 normal heart sound present, No gallops present (Cardio), No murmurs present (Cardio), No rub (Cardio) and Peripheral pulses 2+ throughout RATE: regular rate RHYTHM: regular rhythm HEART SOUNDS: S1 normal heart sound present and S2 normal heart sound present PERIPHERAL PULSES: Peripheral pulses 2+ throughout GI: COMMON NORMALS: Normal to inspection, nondistended, normoactive bowel sounds present, Soft to palpation, non-tender, No hepatosplenomegaly present and no masses AUSCULTATION: Yes normoactive bowel sounds PALPATION: Yes Soft to palpation and Yes No hepatosplenomegaly present RECTAL EXAM: deferred Extremity: COMMON NORMALS: no clubbing, cyanosis or edema and no pedal edema Neuro: COMMON NORMALS: patient oriented x3 Urinary Catheter Management: Lim: Cath Placed During This Visit: yes Reason for Continuing Indwelling Catheter: Accurate Measurement of Urinary Output in Critically Ill Patients Urinary Catheter Date of Insertion: 11/07/22 Urinary Catheter Time of Insertion: 19:00 Data 11/15/22 14:32 11/15/22 03:07 A&P Assessment and plan (1) Cardiogenic shock: In setting of A-fib, non-STEMI and congestive heart failure. Keep mean artery pressure 65. Wean Levophed accordingly. Strict input output charting. (2) Atrial fibrillation with RVR: Continue with amiodarone drip for now. Converted back to normal sinus rhythm. Maintaining sinus heart rate around 70. Decrease drip to 0.5. Will switch over to oral as per protocol within 24 hours. Already on full dose anticoagulation. If maintains in A-fib on and off for the next 24 hours then will plan for long-term anticoagulation otherwise we will hold off. (3) NSTEMI (non-ST elevated myocardial infarction): Troponin cycle trended up. Cardiology consulted. Plan for cardiac angiogram once patient is hemodynamically stable and if creatinine remains stable. Echocardiogram repeated showed an EF of 28% with LV cavity, moderate LA size and mild RA size increased, mild MR. Continue with aspirin, Plavix, statin. Holding off on beta-candice and Imdur given low blood pressures today. (4) Left main coronary artery disease: (5) Respiratory failure with hypoxia and hypercapnia: Resolved. Patient back to baseline oxygen supplementation. D-dimer elevated 3.4. After age-related modification within normal limits. CT chest results appreciated. Concerns for bilateral pleural effusion with possible atelectasis and mild pneumonia. Respiratory viral panel negative. Sputum culture awaited. MRSA recently negative. Given critically illness for now start patient on IV Zosyn empirically. We will try to finish a 5-day course. Continue with DuoNebs every 6 hour, budesonide twice daily. Oxygen supplementation keeping saturation over 90%. (6) Heart failure: Repeat echocardiogram as above. Patient achieved euvolemia. Strict input/output charting, daily weights. Overall around net euvolemic. Hold off on Lasix for now. Monitor fluid status and can plan for redosing in the evening. Hold off on fluid restrictions for now. (7) Chronic hyponatremia: Acute on chronic hyponatremia. Baseline sodium seems to be around 1 28-1 30. Down to 123. Most likely in setting of IV fluids she was getting for possible cardiac catheterization today. Repeat BMP in evening. Continue with oral salt 3 times daily. Patient slightly lethargic but no other symptoms of hyponatremia. (8) Hypertension: Goal blood pressure with mean over 65-70. Currently cardiogenic shock. Patient states usually blood pressures have been running around 170 for many years. Reluctant to increase antihypertensives too much. States on increasing medication she becomes very sleepy and tired. Multiple antihypertensives at home. Takes clonidine 0.1 twice daily, felodipine 10 mg oral every afternoon, hydralazine 25 mg 3 times daily, Imdur 60 mg oral daily, valsartan 160 mg twice daily. Hold off on antihypertensives as above. Qualifiers: Hypertension type: essential hypertension Qualified Code(s): I10 - Essential (primary) hypertension (9) Chronic renal insufficiency: Medical reconciliation done for nephrotoxic drugs. Creatinine back to baseline. (10) Hyperkalemia: Telemetry Hold off on home dose potassium. Continue to monitor daily. (11) Coronary artery disease: Qualifiers: Associated angina: without angina Coronary Disease-Associated Artery/Lesion type: [place] artery [place] vs. transplanted heart: [place] heart Qualified Code(s): I25.10 - Atherosclerotic heart disease of [place] coronary artery without angina pectoris (12) Goals of care, counseling/discussion: Plan Anxiety: Precedex as above. Try to not go higher than 0.2. Patient is at risk of hypercapnic respiratory failure Decrease dose of Celexa to 10 mg oral daily. DVT ppx: Full dose Lovenox will suffice as DVT prophylaxis. Code status: Reconfirmed with the patient and patient's spouse at bedside. Wants to remain full code. Regular diet. Attestations Medical Necessity Statement*: Patient is in hospital for the management of NSTEMI Coding Level of Care Code Acute Code for [facility] Diagnoses Cardiogenic shock R57.0 Atrial fibrillation with RVR I48.91 NSTEMI (non-ST elevated myocardial infarction) I21.4 Left main coronary artery disease I25.10 Respiratory failure with hypoxia and hypercapnia J96.91; J96.92 Heart failure I50.9 Chronic hyponatremia E87.1 Hypertension I10 Hypertension type: essential hypertension Chronic renal insufficiency N18.9 Hyperkalemia E87.5 Coronary artery disease I25.10 Associated angina: without angina Coronary Disease-Associated Artery/Lesion type: [place] artery [place] vs. transplanted heart: [place] heart Goals of care, counseling/discussion Z71.89
[2022-11-15 12:27] LABS: Partial Thromboplastin Time 53.9 SECONDS (23.9-36.7)
--- NOTE | 2022-11-15 12:37 | PC.NURSE ---
Received patient form labor relations supervisor staff at 1000. BP: 155/65. HR: 72, SPO2: 97%, RR 15. Patient is oriented to prson, place, time, and situation, but is lethargic and slow to answer. No bleeding from sheath sites detected externallly, no hematoma formation.
--- NOTE | 2022-11-15 12:38 | PC.NURSE ---
at 1145, nurse ovserved there to be blood oozing form right groin sheath site. Dressing is saturated, unable to note accurate blood loss, but it appears to be minimal.
--- NOTE | 2022-11-15 12:39 | PC.NURSE ---
Nurse has observed right groin sheath site to have an increase in oozing. nurse alerted Dr man nurse, Dr man unavailable at this time.
[2022-11-15] MEDS: FUROsemide 10 mg/mL SDV 2mL 20 MG IVP (13:00)
--- NOTE | 2022-11-15 13:35 | PC.NURSE ---
Nurse applied light pressure to right cath site for 10 minutes. Oozing stopped. Additional gauze placed on either side of cath site to detect and better measure additional bleeding. No hematoma detected.
--- NOTE | 2022-11-15 14:23 | PC.SOCIAL ---
IMM Update pg 2 of IMM left @ bedside. Patient is currently in a procedure and per Dr. Bullock during rounds patient is not anticipated to DC in the next 24-48 hours.
--- NOTE | 2022-11-15 14:30 | PC.NURSE ---
Patient is more lethargic than earlier this morning, possibly more pale. BLood pressure within normal limts at 124/47, though she normally runs hypertensive. Patient complains of back pain, though she always has backpain at baseline. No external or internal bleeding apparent form sheath sites. Nurse alerted Dr izaguirre and recieved orders to check H&H.
[2022-11-15 14:57] LABS: Hematocrit 27.5 % (37.0-47.0); Hemoglobin 8.5 g/dL (11.5-15.3)
[2022-11-15 15:05] LABS: Partial Thromboplastin Time 31.7 SECONDS (23.9-36.7)
--- NOTE | 2022-11-15 16:49 | PM.MISC ---
Miscellaneous Note Purpose of Documentation: Brief procedure Detail Note: Patient underwent successful revascularization of left main artery with EDUARDO x2. Continue aspirin and Plavix. Will resume Lasix. Monitor renal function.
--- NOTE | 2022-11-15 19:53 | PC.NURSE ---
WIth the assistance of nurse Pratibha Madrigal, BOth left and right groin sheaths were removed. First the right was removed, Oressure josé miguel for 25 minutes.No external blood loss. No hematoma formation. No abnormal vitals signs during pull. Dressed with transparent dressing and gauze. Left sheath was the pulled, pressure josé miguel for 25 minutes. 5mL of external blood loss, no hematoma formation, no abnormal vitals. Dressed with transparent dressing and gauze.
--- NOTE | 2022-11-15 19:55 | PC.NURSE ---
Shift summary: Uneventful shift. Patient rested in bed throughout the day. Went to solar lab technician and had 2 stents placed. Bilateral groin sheath pulls were uneventful. Patient is to remain supine until 1130PM.
[2022-11-15] MEDS: atorvastatin 40 mg Tablet PO (20:02)
[2022-11-15] MEDS: amiodarone 200 mg Tablet 400 MG PO (20:11)
--- NOTE | 2022-11-15 20:41 | PC.NURSE ---
Patient c/o of back pain. Patient on bed rest post cath until 0 and she had received her pain medication from the day shift nurse. This was explained to the patient and he family. Repositioning offered and denied. Patient requesting doctor be called. Reported patient's c/o chronic back pain to Dr. Alonzo. Orders for lidocaine patch received.
[2022-11-15] MEDS: lidocaine 5% Patch 1 PATCH TOPICAL (21:38)
[2022-11-16] VITALS (87 sets, daily range): BP systolic 97–172; BP diastolic 46–101; PULSE 51–136; RESP 0–41; O2SAT 90–100
[2022-11-16] MEDS: HYDROcodone-acetaminophen 10-325 mg Tablet 1 TAB PO ×5 (00:45→21:40)
[2022-11-16] MEDS: enoxaparin 60 mg/0.6 mL Syringe SUBCUT (00:45)
[2022-11-16] MEDS: piperacillin-tazobactam 3.375 GM in sodium chloride 0.9% (plus) 50 ML IV (02:26)
[2022-11-16 03:53] LABS: Basophils % 0.1 %; Eosinophils # 0.1 10^3/uL (0.0-0.8); Eosinophils % 1.1 %; Hematocrit 23.6 % (37.0-47.0); Hemoglobin 7.4 g/dL (11.5-15.3); Lymphocytes # 0.5 10^3/uL (0.8-4.8); Lymphocytes % 7.6 %; Mean Corpuscular HGB Conc 31.4 g/dL (30.0-36.0); Mean Corpuscular Hemoglobin 30.5 pg (28.0-34.0); Mean Corpuscular Volume 97.1 fl (81-99); Mean Platelet Volume 10.9 fL (7.4-10.4); Monocytes # 0.7 10^3/uL (0.2-0.9); Monocytes % 10.2 %; Neutrophils # 5.62 10^3/uL (1.8-7.7); Neutrophils % 80.4 %; Nucleated Red Blood Cells % 0 %; Platelet Count 380 10^3/cmm (130-400); Red Blood Count 2.43 10^6/uL (4.1-5.3); Red Cell Distribution Width 16.8 % (12.1-15.1)
[2022-11-16] MEDS: morphine 4 mg/mL SDV 1 mL 1 MG IVP (04:06)
[2022-11-16] MEDS: levothyroxine 88 mcg Tablet PO (04:07)
[2022-11-16] MEDS: budesonide 0.5 mg/2 mL Neb INHALATION ×2 (07:47→19:43)
[2022-11-16] MEDS: ipratropium-albuterol 3 mL Neb INHALATION ×4 (08:00→19:43)
[2022-11-16] MEDS: FUROsemide 10 mg/mL SDV 4mL 40 MG IVP (08:02)
[2022-11-16 08:19] LABS: Alanine Aminotransferase 9 U/L (0-33); Albumin Level 2.4 g/dL (3.5-5.2); Alkaline Phosphatase 66 U/L (35-105); Aspartate Amino Transferase 14 U/L (0-32); Blood Urea Nitrogen 42 mg/dL (8-23); Carbon Dioxide 26 mmol/L (22-29); Chloride 86 mmol/L (98-107); Globulin 3.6 g/dL (1.3-4.6); Glucose 100 mg/dL (65-115); Osmolality Calculated 269 mOsm/kg (285-295); Sodium 124 mmol/L (136-145); Total Bilirubin 0.3 mg/dL (0.15-1.2)
[2022-11-16] MEDS: magnesium oxide 400 mg tablet PO ×2 (09:18→17:25)
[2022-11-16] MEDS: amiodarone 200 mg Tablet 400 MG PO ×2 (09:18→17:25)
[2022-11-16] MEDS: gabapentin 100 mg Capsule PO ×2 (09:18→17:25)
[2022-11-16] MEDS: clopidogrel 75 mg Tablet PO (09:18)
[2022-11-16] MEDS: isosorbide mononitrate ER 30 mg Tablet PO (09:18)
[2022-11-16] MEDS: citalopram 20 mg Tablet 10 MG PO (09:18)
[2022-11-16] MEDS: sodium chloride 1 gm Tablet PO ×3 (09:18→21:14)
[2022-11-16] MEDS: aspirin 81 mg Chew Tablet PO (09:19)
[2022-11-16] MEDS: tamsulosin 0.4 mg Capsule PO (09:19)
[2022-11-16 10:43] LABS: ABG PCO2 47.1 mmHg (35-45); ABG PH Result 7.41 (7.35-7.45); Alveolar-Arterial Oxygen Gradi 8.2 mmHg (5-10); Arterial Blood Gas Hematocrit 24.5 % (37-47); Base Excess ABG 4.3 mmol/L (-2.0-2.0); Blood Gas Allen Test Pos; Blood Gas Operator Identificat GD; Blood Gas Sample Site Radial, right; Blood Gas Sample Type Arterial; Carboxyhemoglobin 1.3 %THgb (0.4-20.1); HCO3 ABG 29.5 mmol/L (22-26); Ionized Calcium Level - ABG 1.1 mmol/L (1.1-1.4); Methemoglobin 0.3 % (0.4-1.5); Oxygen Device BIPAP; Oxygen Saturation ABG 98.6; PO2 ABG 92.4 mmHg (80.0-100.0); Potassium Level - ABG 3.7 mmol/L (3.5-5.0)
[2022-11-16] MEDS: ALPRAZolam 0.5 mg Tablet 0.25 MG PO (12:05)
--- NOTE | 2022-11-16 13:11 | PM.PN ---
Subjective Subjective: Patient was seen and examined this morning, she was complaining of significant shortness of breath. Patient received 1 dose of Lasix 40 IV, breathing treatments, she also received Xanax, low-dose for anxiety, and was placed on BiPAp, serum creatinine has trended up to 1.6. hb has also dropped to 7.4 as compared to 8.5 yesterday, Medications: Reviewed: Yes Medication Review Details: Generic Name Dose Route Start Last Admin Trade Name Freq PRN Reason Stop Dose Admin Hydrocodone Bitart /Acetaminophen 1 tab 11/16/22 00:21 11/16/22 12:06 Hydrocodone-Acet aminophen 10-325 M g Tablet PO 1 tab Q4H PRN Administration MODERATE PAIN Albuterol/Ipratrop ium 3 ml 11/16/22 08:00 11/16/22 11:08 Ipratropium-Albu terol 3 Ml Neb INHALATION 3 ml QID.RESPIRATORY S CH Administration Amiodarone HCl 400 mg 11/15/22 21:00 11/16/22 09:18 Amiodarone 200 M g Tablet PO 400 mg BID IMMANUEL Administration Aspirin 81 mg 11/11/22 09:00 11/16/22 09:19 Aspirin 81 Mg Ch ew Tablet PO 81 mg DAILY IMMANUEL Administration Atorvastatin Calci um 40 mg 11/10/22 21:00 11/15/22 20:02 Atorvastatin 40 Mg Tablet PO 40 mg BEDTIME IMMANUEL Administration Bisacodyl 10 mg 11/07/22 17:16 11/11/22 13:56 Bisacodyl 5 Mg T ablet PO 10 mg DAILY PRN Administration Constipation Budesonide 0.5 mg 11/10/22 20:00 11/16/22 07:47 Budesonide 0.5 M g/2 Ml Neb INHALATION 0.5 mg BID.RESPIRATORY S CH Administration Citalopram Hydrobr omide 10 mg 11/13/22 09:00 11/16/22 09:18 Citalopram 20 Mg Tablet PO 10 mg DAILY IMMANUEL Administration Clopidogrel Bisulf ate 75 mg 11/11/22 09:00 11/16/22 09:18 Clopidogrel 75 M g Tablet PO 75 mg DAILY IMMANUEL Administration Gabapentin 100 mg 11/07/22 18:00 11/16/22 09:18 Gabapentin 100 M g Capsule PO 100 mg BID IMMANUEL Administration Hydralazine HCl 50 mg 11/08/22 15:00 11/11/22 09:39 Hydralazine 50 M g Tablet PO 50 mg TID IMMANUEL Administration Dexmedetomidine HC l 400 mcg/ 104 mls @ 0 mls/h r 11/10/22 22:15 11/12/22 07:30 Sodium Chloride IV 0 mcg/kg/hr .Q0M IMMANUEL 0 mls/hr Titration Protocol Per Protocol Norepinephrine Bit artrate 4 mg 254 mls @ 0 mls/h r 11/12/22 07:00 11/12/22 10:00 / Dextrose IV 0 mcg/min .Q0M IMMANUEL 0 mls/hr Titration Protocol Per Protocol Isosorbide Mononit rate 30 mg 11/14/22 09:56 11/16/22 09:18 Isosorbide [place] itrate Er 30 Mg Ta blet PO 30 mg DAILY IMMANUEL Administration Levothyroxine Sodi um 88 mcg 11/08/22 05:00 11/16/22 04:07 Levothyroxine 88 Mcg Tablet PO 88 mcg DAILY@05 IMMANUEL Administration Lidocaine 1 patch 11/15/22 21:00 11/15/22 21:38 Lidocaine 5% Pat ch TOPICAL 1 patch [id number] IMMANUEL Administration Losartan Potassium 50 mg 11/07/22 18:00 11/11/22 10:03 Losartan 50 Mg T ablet PO Not Given BID [facility] Magnesium Hydroxid e 30 ml 11/11/22 16:56 11/11/22 17:08 Magnesium Hydrox mely 30 Ml Udc PO 30 ml DAILY PRN Administration CONSTIPATION Magnesium Oxide 400 mg 11/07/22 18:00 11/16/22 09:18 Magnesium Oxide 400 Mg Tablet PO 400 mg BID IMMANUEL Administration Metoprolol Tartrat e 50 mg 11/10/22 21:00 11/11/22 22:27 Metoprolol Tartr ate 50 Mg Tablet PO Not Given BID@0900,2100 [facility] Sodium Chloride 1 gm 11/07/22 21:00 11/16/22 09:18 Sodium Chloride 1 Gm Tablet PO 1 gm TID IMMANUEL Administration Tamsulosin HCl 0.4 mg 11/14/22 09:00 11/16/22 09:19 Tamsulosin 0.4 M g Capsule PO 0.4 mg DAILY IMMANUEL Administration Vitals/I&O/Wt Last Vital Signs Temp 98.3 F 11/15/22 16:00 Pulse 114 H 11/16/22 11:12 Resp 18 11/16/22 11:00 BP 166/66 11/16/22 08:30 Pulse Ox 97 11/16/22 11:12 O2 Del Method BiPAP 11/16/22 11:00 O2 Flow Rate 3 11/16/22 07:45 FiO2 30 11/16/22 11:12 11/15/22 11/16/22 11/16/22 22:59 06:59 14:59 Intake Total 1300 / 1350 50 / 1400 Output Total 150 / 400 250 / 650 Balance 1150 / 950 -200 / 750 Weight last 48 hrs Weight 70.76 kg Physical Exam HENMT: COMMON NORMALS: normocephalic and atraumatic HEAD & SCALP: normocephalic and atraumatic Resp: COMMON NORMALS: clear to auscultation bilaterally EFFORT & INSPECTION: Yes symmetric chest movement AUSCULTATION: clear to auscultation bilaterally OTHER: Diminished air entry bilaterally Cardio: COMMON NORMALS: regular rate, regular rhythm, S1 normal heart sound present, S2 normal heart sound present, No gallops present (Cardio), No murmurs present (Cardio), No rub (Cardio) and Peripheral pulses 2+ throughout RATE: regular rate RHYTHM: regular rhythm HEART SOUNDS: S1 normal heart sound present and S2 normal heart sound present PERIPHERAL PULSES: Peripheral pulses 2+ throughout GI: COMMON NORMALS: Normal to inspection, nondistended, normoactive bowel sounds present, Soft to palpation, non-tender, No hepatosplenomegaly present and no masses AUSCULTATION: Yes normoactive bowel sounds PALPATION: Yes Soft to palpation and Yes No hepatosplenomegaly present RECTAL EXAM: deferred Extremity: COMMON NORMALS: no clubbing, cyanosis or edema and no pedal edema Urinary Catheter Management: Lim: Cath Placed During This Visit: yes Reason for Continuing Indwelling Catheter: Accurate Measurement of Urinary Output in Critically Ill Patients Urinary Catheter Date of Insertion: 11/07/22 Urinary Catheter Time of Insertion: 19:00 Data 11/16/22 03:27 11/16/22 07:55 A&P Assessment and plan (1) Cardiogenic shock: Initially during hospital stay patient was in cardiogenic shock: Currently it has resolved: Maintaining good perfusion, has no JVD, extremities are, warm, not on any inotropic support.She is off Levophed. Cardiogenic shock was attributed to NSTEMI. (2) Atrial fibrillation with RVR: Has converted to sinus rhythm. Patient was on amiodarone drip has been transitioned to p.o. amiodarone 400 twice daily, will complete 10 g loading dose protocol, thereafter she will continue on 200 mg p.o. daily. Currently on therapeutic anticoagulation with Lovenox (3) NSTEMI (non-ST elevated myocardial infarction): Echocardiogram repeated showed an EF of 28% with LV cavity, moderate LA size and mild RA size increased, mild MR. S/p PCI to left main Continue with aspirin, Plavix, statin. Holding off on beta-candice and Imdur given low blood pressures today. (4) Left main coronary artery disease: (5) Respiratory failure with hypoxia and hypercapnia: Resolved. Patient back to baseline oxygen supplementation. D-dimer elevated 3.4. After age-related modification within normal limits. CT chest results appreciated. Concerns for bilateral pleural effusion with possible atelectasis and mild pneumonia. Respiratory viral panel negative. Sputum culture awaited. MRSA recently negative. Given critically illness for now start patient on IV Zosyn empirically. We will try to finish a 5-day course. Continue with DuoNebs every 6 hour, budesonide twice daily. Oxygen supplementation keeping saturation over 90%. (6) Heart failure: Decompensated heart failure with reduced ejection fraction Has been on Lasix Monitor intake output charting Daily weight Monitor electrolytes, keep potassium greater than 4, magnesium greater than 2 Telemetry monitoring (7) Chronic hyponatremia: Acute on chronic hyponatremia. Baseline sodium seems to be around 1 28-1 30. Down to 123. Most likely in setting of IV fluids she was getting for possible cardiac catheterization today. Repeat BMP in evening. Continue with oral salt 3 times daily. Patient slightly lethargic but no other symptoms of hyponatremia. (8) Hypertension: Goal blood pressure with mean over 65-70. Currently cardiogenic shock. Patient states usually blood pressures have been running around 170 for many years. Reluctant to increase antihypertensives too much. States on increasing medication she becomes very sleepy and tired. Multiple antihypertensives at home. Takes clonidine 0.1 twice daily, felodipine 10 mg oral every afternoon, hydralazine 25 mg 3 times daily, Imdur 60 mg oral daily, valsartan 160 mg twice daily. Hold off on antihypertensives as above. Qualifiers: Hypertension type: essential hypertension Qualified Code(s): I10 - Essential (primary) hypertension (9) Chronic renal insufficiency: DAXA on CKD: Likely secondary to JEANNINE, CRS Baseline serum creatinine appears to be around 0.8-1 Current serum creatinine: 1.6 Monitor intake output charting Avoid nephrotoxic's Monitor BMP (10) Hyperkalemia: Resolved Hold off on home dose potassium. Continue to monitor daily. (11) Coronary artery disease: Qualifiers: Associated angina: without angina Coronary Disease-Associated Artery/Lesion type: [place] artery [place] vs. transplanted heart: [place] heart Qualified Code(s): I25.10 - Atherosclerotic heart disease of [place] coronary artery without angina pectoris (12) Goals of care, counseling/discussion: Plan DVT ppx: Full dose Lovenox will suffice as DVT prophylaxis. CODE STATUS full code Attestations Medical Necessity Statement*: Needs to be in hospital for monitoring of renal function. Coding Level of Care Code Acute Code for [facility] Diagnoses Cardiogenic shock R57.0 Atrial fibrillation with RVR I48.91 NSTEMI (non-ST elevated myocardial infarction) I21.4 Left main coronary artery disease I25.10 Respiratory failure with hypoxia and hypercapnia J96.91; J96.92 Heart failure I50.9 Chronic hyponatremia E87.1 Hypertension I10 Hypertension type: essential hypertension Chronic renal insufficiency N18.9 Hyperkalemia E87.5 Coronary artery disease I25.10 Associated angina: without angina Coronary Disease-Associated Artery/Lesion type: [place] artery [place] vs. transplanted heart: [place] heart Goals of care, counseling/discussion Z71.89
--- NOTE | 2022-11-16 17:04 | P.PN_ITS ---
Subjective Subjective: Patient hadShortness of breath this morning however is feeling much better now. Denies any chest pain. Her creatinine has increased slightly to 1.6. Vitals/I&O/Wt Last Vital Signs Temp 98.3 F 11/15/22 16:00 Pulse 79 11/16/22 16:00 Resp 16 11/16/22 16:00 BP 144/57 11/16/22 16:00 Pulse Ox 96 11/16/22 16:00 O2 Del Method Nasal Cannula 11/16/22 15:30 O2 Flow Rate 3 11/16/22 15:30 FiO2 30 11/16/22 11:12 11/16/22 11/16/22 11/16/22 06:59 14:59 22:59 Intake Total 50 / 1400 Output Total 250 / 650 Balance -200 / 750 Weight last 48 hrs Weight 156 lb Physical Exam Const: COMMON NORMALS: no acute distress, patient oriented x3 and alert GENERAL APPEARANCE: cooperative, comfortable, well kempt and well hydrated HENMT: COMMON NORMALS: hearing grossly normal bilaterally, external ears normal and moist oral mucous membranes FACE & SINUS: normal facial exam EXTERNAL EAR: Yes external ears normal Eye: COMMON NORMALS: EOMs intact bilaterally and no scleral icterus GENERAL EYE: appearance normal, both eyes and all related structures ALIGNMENT: Yes alignment normal Neck/C-Spine: COMMON NORMALS: supple and no JVD GENERAL: Yes normal visual inspection CAROTIDS: Yes normal carotid upstroke Chest: COMMONS NORMALS: normal inspection of the chest and normal palpation of entire chest wall CHEST: Yes Symmetrical chest wall rise and No tenderness Resp: COMMON NORMALS: clear to auscultation bilaterally AUSCULTATION: clear to auscultation bilaterally, no crackles, no rales, no rhonchi and no wheezes Cardio: COMMON NORMALS: no JVD, regular rate, regular rhythm, S1 normal heart sound present, S2 normal heart sound present and Peripheral pulses 2+ throughout PALPATION: normal PMI RATE: regular rate RHYTHM: regular rhythm HEART SOUNDS: S1 normal heart sound present, S2 normal heart sound present, no gallops and no murmurs BRUITS: no carotid bruits PERIPHERAL PULSES: Peripheral pulses 2+ throughout, radial pulses present, posterior tibial pulses present and dorsalis pedis present GI: COMMON NORMALS: Soft to palpation AUSCULTATION: Yes normoactive bowel sounds PALPATION: Yes Soft to palpation, No Tenderness to palpation present (GI), No Guarding due to palpation present (GI) and No Rigid due to palpation PERCUSSION: tympanic to percussion Extremity: GENERAL: No cyanosis, Yes edema and No pallor Neuro: COMMON NORMALS: patient oriented x3 and no focal motor deficits SENSORIUM/ORIENTATION: Yes alert Psych: COMMON NORMALS: Normal thought process present and speech normal APPEARANCE: Yes well kempt SPEECH: Yes normal speech MOOD & AFFECT: Yes euthymic mood THOUGHT PROCESS: Normal thought process present THOUGHT CONTENT: Yes Normal thought content present Urinary Catheter Management: Lim: Cath Placed During This Visit: yes Reason for Continuing Indwelling Catheter: Accurate Measurement of Urinary Output in Critically Ill Patients Urinary Catheter Date of Insertion: 11/07/22 Urinary Catheter Time of Insertion: 19:00 Data 11/16/22 03:27 11/16/22 07:55 A&P Assessment and plan (1) NSTEMI (non-ST elevated myocardial infarction): Patient is status post successful revascularization of left main artery with EDUARDO x2. Continue aspirin and Plavix. Monitor renal function. Once stable, will diurese We will start metoprolol 25mg BID today (2) Coronary artery disease: Qualifiers: Coronary Disease-Associated Artery/Lesion type: [place] artery [place] vs. transplanted heart: [place] heart Associated angina: without angina Qualified Code(s): I25.10 - Atherosclerotic heart disease of [place] coronary artery without angina pectoris (3) Dyslipidemia (high LDL; low HDL): (4) Chronic hyponatremia: Plan Atrial fibrillation CHF DAXA HTN Chronic anemia Constipation Hypothyroidism Attestations Medical Necessity Statement*: Care expected to cross 2 midnights. Coding Level of Care Code Acute Code for [facility] Fwd Diagnoses NSTEMI (non-ST elevated myocardial infarction) I21.4 Coronary artery disease I25.10 Coronary Disease-Associated Artery/Lesion type: [place] artery [place] vs. transplanted heart: [place] heart Associated angina: without angina Dyslipidemia (high LDL; low HDL) E78.5 Chronic hyponatremia E87.1
[2022-11-16] MEDS: sodium chloride 0.9% 1,000 ML 75 ML IV (17:25)
[2022-11-16] MEDS: enoxaparin 80 mg/0.8 mL Syringe 70 MG SUBCUT (21:14)
[2022-11-16] MEDS: hyDRALAzine 25 mg Tablet PO (21:14)
[2022-11-16] MEDS: atorvastatin 40 mg Tablet PO (21:14)
[2022-11-16] MEDS: lidocaine 5% Patch 1 PATCH TOPICAL (21:15)
[2022-11-16] MEDS: metoprolol tartrate 25 mg Tablet PO (21:17)
[2022-11-17] VITALS (28 sets, daily range): BP systolic 105–174; BP diastolic 37–69; PULSE 51–70; RESP 0–30; TEMP 36.6–37.1; O2SAT 90–100
[2022-11-17] MEDS: levothyroxine 88 mcg Tablet PO (04:21)
[2022-11-17] MEDS: HYDROcodone-acetaminophen 10-325 mg Tablet 1 TAB PO ×5 (04:21→20:49)
[2022-11-17 05:29] LABS: Basophils % 0.2 %; Eosinophils # 0.1 10^3/uL (0.0-0.8); Eosinophils % 1.6 %; Hematocrit 26.3 % (37.0-47.0); Lymphocytes # 0.6 10^3/uL (0.8-4.8); Lymphocytes % 7.6 %; Mean Corpuscular HGB Conc 30.4 g/dL (30.0-36.0); Mean Corpuscular Hemoglobin 30.4 pg (28.0-34.0); Mean Platelet Volume 10.2 fL (7.4-10.4); Monocytes # 0.8 10^3/uL (0.2-0.9); Monocytes % 9.5 %; Neutrophils # 6.48 10^3/uL (1.8-7.7); Neutrophils % 80.6 %; Nucleated Red Blood Cells % 0 %; Platelet Count 417 10^3/cmm (130-400); Red Blood Count 2.63 10^6/uL (4.1-5.3); Red Cell Distribution Width 15.1 % (12.1-15.1)
[2022-11-17 05:43] LABS: Alanine Aminotransferase 10 U/L (0-33); Albumin Level 2.4 g/dL (3.5-5.2); Alkaline Phosphatase 77 U/L (35-105); Aspartate Amino Transferase 17 U/L (0-32); Blood Urea Nitrogen 46 mg/dL (8-23); Calcium 7.7 mg/dL (8.5-10.5); Carbon Dioxide 25 mmol/L (22-29); Chloride 89 mmol/L (98-107); Globulin 3.6 g/dL (1.3-4.6); Glucose 105 mg/dL (65-115); Osmolality Calculated 272 mOsm/kg (285-295); Sodium 125 mmol/L (136-145); Total Bilirubin 0.3 mg/dL (0.15-1.2)
[2022-11-17 05:44] LABS: Anion Gap 15.2 (5-19); Potassium 4.2 mmol/L (3.5-5.1)
[2022-11-17] MEDS: budesonide 0.5 mg/2 mL Neb INHALATION ×2 (07:59→19:39)
[2022-11-17] MEDS: ipratropium-albuterol 3 mL Neb INHALATION ×4 (07:59→19:39)
[2022-11-17] MEDS: sodium chloride 0.9% 1,000 ML 75 ML IV (08:08)
[2022-11-17] MEDS: magnesium oxide 400 mg tablet PO ×2 (08:10→17:43)
[2022-11-17] MEDS: sodium chloride 1 gm Tablet PO ×3 (08:11→20:05)
[2022-11-17] MEDS: isosorbide mononitrate ER 60 mg Tablet PO (08:11)
[2022-11-17] MEDS: amiodarone 200 mg Tablet 400 MG PO ×2 (08:11→17:44)
[2022-11-17] MEDS: clopidogrel 75 mg Tablet PO (08:11)
[2022-11-17] MEDS: aspirin 81 mg Chew Tablet PO (08:11)
[2022-11-17] MEDS: citalopram 20 mg Tablet 10 MG PO (08:11)
[2022-11-17] MEDS: gabapentin 100 mg Capsule PO ×2 (08:11→17:44)
[2022-11-17] MEDS: tamsulosin 0.4 mg Capsule PO (08:11)
[2022-11-17] MEDS: hyDRALAzine 25 mg Tablet PO ×3 (08:11→20:05)
[2022-11-17] MEDS: metoprolol tartrate 25 mg Tablet PO ×2 (08:12→20:05)
[2022-11-17] MEDS: lidocaine 5% Patch 1 PATCH TOPICAL (08:23)
--- NOTE | 2022-11-17 10:53 | PC.SOCIAL ---
IMM update IMM updated with patient and family at bedside. Copy Pg 2 provided. Verbalized an understanding. Initialled, dated, timed, and placed in chart.
--- NOTE | 2022-11-17 11:05 | PC.NURSE ---
MAR pain reassessment: 0920 reassessment completed for administration time of 0841, day shift. Would not allow this nurse to assess that administration without first assessing interactive media marketing director at 0451, nightshift administration and reassessment time.
[2022-11-17] MEDS: FUROsemide 10 mg/mL SDV 10mL 80 MG IVP ×2 (11:30→16:34)
[2022-11-17] MEDS: albumin 50 G/200 ML BAG 60 G IV (11:30)
--- NOTE | 2022-11-17 12:17 | PM.PN ---
Subjective Subjective: Patient was seen and examined this morning, currently serum creatinine is going up, she has poor urine output, IV IV fluids were given overnight, for now we will discontinue that, will give Lasix 80 IV one-time dose, nephrology has been consulted. Medications: Reviewed: Yes Medication Review Details: Generic Name Dose Route Start Last Admin Trade Name Freq PRN Reason Stop Dose Admin Hydrocodone Bitart /Acetaminophen 1 tab 11/16/22 00:21 11/17/22 08:41 Hydrocodone-Acet aminophen 10-325 M g Tablet PO 1 tab Q4H PRN Administration MODERATE PAIN Albuterol/Ipratrop ium 3 ml 11/16/22 08:00 11/17/22 10:59 Ipratropium-Albu terol 3 Ml Neb INHALATION 3 ml QID.RESPIRATORY S CH Administration Amiodarone HCl 400 mg 11/15/22 21:00 11/17/22 08:11 Amiodarone 200 M g Tablet PO 400 mg BID IMMANUEL Administration Aspirin 81 mg 11/11/22 09:00 11/17/22 08:11 Aspirin 81 Mg Ch ew Tablet PO 81 mg DAILY IMMANUEL Administration Atorvastatin Calci um 40 mg 11/10/22 21:00 11/16/22 21:14 Atorvastatin 40 Mg Tablet PO 40 mg BEDTIME IMMANUEL Administration Bisacodyl 10 mg 11/07/22 17:16 11/11/22 13:56 Bisacodyl 5 Mg T ablet PO 10 mg DAILY PRN Administration Constipation Budesonide 0.5 mg 11/10/22 20:00 11/17/22 07:59 Budesonide 0.5 M g/2 Ml Neb INHALATION 0.5 mg BID.RESPIRATORY S CH Administration Citalopram Hydrobr omide 10 mg 11/13/22 09:00 11/17/22 08:11 Citalopram 20 Mg Tablet PO 10 mg DAILY IMMANUEL Administration Clopidogrel Bisulf ate 75 mg 11/11/22 09:00 11/17/22 08:11 Clopidogrel 75 M g Tablet PO 75 mg DAILY IMMANUEL Administration Enoxaparin Sodium 70 mg 11/16/22 21:00 11/16/22 21:14 Enoxaparin 80 Mg /0.8 Ml Syringe SUBCUT 70 mg Q24H IMMANUEL Administration Gabapentin 100 mg 11/07/22 18:00 11/17/22 08:11 Gabapentin 100 M g Capsule PO 100 mg BID IMMANUEL Administration Hydralazine HCl 25 mg 11/16/22 21:00 11/17/22 08:11 Hydralazine 25 M g Tablet PO 25 mg TID IMMANUEL Administration Albumin Human 50 g in 200 mls @ 60 mls/hr 11/17/22 10:41 11/17/22 11:30 Albumin IV 11/17/22 14:00 60 mls/hr ONCE ONE Administration Isosorbide Mononit rate 60 mg 11/17/22 09:00 11/17/22 08:11 Isosorbide Dagmar itrate Er 60 Mg Ta blet PO 60 mg DAILY IMMANUEL Administration Levothyroxine Sodi um 88 mcg 11/08/22 05:00 11/17/22 04:21 Levothyroxine 88 Mcg Tablet PO 88 mcg DAILY@05 IMMANUEL Administration Lidocaine 1 patch 11/15/22 21:00 11/17/22 08:23 Lidocaine 5% Pat ch TOPICAL 1 patch [id number] IMMANUEL Administration Magnesium Hydroxid e 30 ml 11/11/22 16:56 11/11/22 17:08 Magnesium Hydrox mely 30 Ml Udc PO 30 ml DAILY PRN Administration CONSTIPATION Magnesium Oxide 400 mg 11/07/22 18:00 11/17/22 08:10 Magnesium Oxide 400 Mg Tablet PO 400 mg BID IMMANUEL Administration Metoprolol Tartrat e 25 mg 11/16/22 21:00 11/17/22 08:12 Metoprolol Tartr ate 25 Mg Tablet PO 25 mg BID@0900,2100 IMMANUEL Administration Sodium Chloride 1 gm 11/07/22 21:00 11/17/22 08:11 Sodium Chloride 1 Gm Tablet PO 1 gm TID IMMANUEL Administration Tamsulosin HCl 0.4 mg 11/14/22 09:00 11/17/22 08:11 Tamsulosin 0.4 M g Capsule PO 0.4 mg DAILY IMMANUEL Administration Vitals/I&O/Wt Last Vital Signs Temp 98.4 F 11/17/22 04:00 Pulse 59 L 11/17/22 11:09 Resp 20 H 11/17/22 10:59 BP 146/68 11/17/22 04:00 Pulse Ox 96 11/17/22 10:59 O2 Del Method Nasal Cannula 11/17/22 10:59 O2 Flow Rate 4 11/17/22 10:59 FiO2 30 11/17/22 08:00 11/16/22 11/17/22 11/17/22 22:59 06:59 14:59 Intake Total 550 / 550 1260 / 1810 Output Total 150 / 150 40 / 190 Balance 400 / 400 1220 / 1620 Weight last 48 hrs Weight 68.039 kg Physical Exam Const: COMMON NORMALS: patient oriented x3 HENMT: COMMON NORMALS: normocephalic and atraumatic HEAD & SCALP: normocephalic and atraumatic Resp: EFFORT & INSPECTION: Yes symmetric chest movement OTHER: Diminished air entry bilaterally, b/l crackles present in both the lungs schaeffer at bases. Cardio: COMMON NORMALS: regular rate, regular rhythm, S1 normal heart sound present, S2 normal heart sound present, No gallops present (Cardio), No murmurs present (Cardio), No rub (Cardio) and Peripheral pulses 2+ throughout RATE: regular rate RHYTHM: regular rhythm HEART SOUNDS: S1 normal heart sound present and S2 normal heart sound present PERIPHERAL PULSES: Peripheral pulses 2+ throughout GI: COMMON NORMALS: Normal to inspection, nondistended, normoactive bowel sounds present, Soft to palpation, non-tender, No hepatosplenomegaly present and no masses AUSCULTATION: Yes normoactive bowel sounds PALPATION: Yes Soft to palpation and Yes No hepatosplenomegaly present RECTAL EXAM: deferred Extremity: OTHER: 3+ Pitting edema present in both the lungs schaeffer. Neuro: COMMON NORMALS: patient oriented x3 Urinary Catheter Management: Lim: Cath Placed During This Visit: yes Reason for Continuing Indwelling Catheter: Accurate Measurement of Urinary Output in Critically Ill Patients Urinary Catheter Date of Insertion: 11/07/22 Urinary Catheter Time of Insertion: 19:00 Data 11/17/22 05:13 11/17/22 05:13 A&P Assessment and plan (1) Cardiogenic shock: Initially during hospital stay patient was in cardiogenic shock: Currently it has resolved: Maintaining good perfusion, has no JVD, extremities are, warm, not on any inotropic support.She is off Levophed. Cardiogenic shock was attributed to NSTEMI. (2) Atrial fibrillation with RVR: Has converted to sinus rhythm. Patient was on amiodarone drip has been transitioned to p.o. amiodarone 400 twice daily, will complete 10 g loading dose protocol, thereafter she will continue on 200 mg p.o. daily. Currently on therapeutic anticoagulation with Lovenox (3) NSTEMI (non-ST elevated myocardial infarction): Echocardiogram repeated showed an EF of 28% with LV cavity, moderate LA size and mild RA size increased, mild MR. S/p PCI to left main Continue with aspirin, Plavix, statin. Imdur and beta-candice has been resumed as the blood pressure is significantly improved.. (4) Left main coronary artery disease: (5) Respiratory failure with hypoxia and hypercapnia: Resolved. Patient back to baseline oxygen supplementation. D-dimer elevated 3.4. After age-related modification within normal limits. CT chest results appreciated. Concerns for bilateral pleural effusion with possible atelectasis and mild pneumonia. Respiratory viral panel negative. Sputum culture awaited. MRSA recently negative. Given critically illness for now start patient on IV Zosyn empirically. We will try to finish a 5-day course. Continue with DuoNebs every 6 hour, budesonide twice daily. Oxygen supplementation keeping saturation over 90%. (6) Heart failure: Decompensated heart failure with reduced ejection fraction Has been on Lasix Monitor intake output charting Daily weight Monitor electrolytes, keep potassium greater than 4, magnesium greater than 2 Telemetry monitoring (7) Chronic hyponatremia: Acute on chronic hyponatremia. Baseline sodium seems to be around 1 28-1 30. Down to 123. Most likely in setting of IV fluids she was getting for possible cardiac catheterization today. Repeat BMP in evening. Continue with oral salt 3 times daily. Patient slightly lethargic but no other symptoms of hyponatremia. (8) Hypertension: Goal blood pressure with mean over 65-70. Currently cardiogenic shock. Patient states usually blood pressures have been running around 170 for many years. Reluctant to increase antihypertensives too much. States on increasing medication she becomes very sleepy and tired. Multiple antihypertensives at home. Takes clonidine 0.1 twice daily, felodipine 10 mg oral every afternoon, hydralazine 25 mg 3 times daily, Imdur 60 mg oral daily, valsartan 160 mg twice daily. Hold off on antihypertensives as above. Qualifiers: Hypertension type: essential hypertension Qualified Code(s): I10 - Essential (primary) hypertension (9) Chronic renal insufficiency: DAXA on CKD: Likely secondary to JEANNINE, CRS Baseline serum creatinine appears to be around 0.8-1 Current serum creatinine: 1.9 Monitor intake output charting Avoid nephrotoxic's On IV albumin Monitor BMP Nephrology on board (10) Hyperkalemia: Resolved Hold off on home dose potassium. Continue to monitor daily. (11) Coronary artery disease: Qualifiers: Associated angina: without angina Coronary Disease-Associated Artery/Lesion type: [place] artery [place] vs. transplanted heart: [place] heart Qualified Code(s): I25.10 - Atherosclerotic heart disease of [place] coronary artery without angina pectoris (12) Goals of care, counseling/discussion: Plan DVT ppx: Full dose Lovenox will suffice as DVT prophylaxis. CODE STATUS full code Attestations Medical Necessity Statement*: Needs to be in hospital for monitoring of kidney function. Coding Level of Care Code Acute Code for [facility] Fwd Diagnoses Cardiogenic shock R57.0 Atrial fibrillation with RVR I48.91 NSTEMI (non-ST elevated myocardial infarction) I21.4 Left main coronary artery disease I25.10 Respiratory failure with hypoxia and hypercapnia J96.91; J96.92 Heart failure I50.9 Chronic hyponatremia E87.1 Hypertension I10 Hypertension type: essential hypertension Chronic renal insufficiency N18.9 Hyperkalemia E87.5 Coronary artery disease I25.10 Associated angina: without angina Coronary Disease-Associated Artery/Lesion type: [place] artery [place] vs. transplanted heart: [place] heart Goals of care, counseling/discussion Z71.89
[2022-11-17] MEDS: albumin 25 G/100 ML BAG 60 G IV (16:34)
--- NOTE | 2022-11-17 18:35 | PC.NURSE ---
Pt rested in bed throughout shift. She was having shortness of breath this am and wore the BIPap for about 3 hours. She is very edematous on her extremities and groin area. Foot/leg and hand/arm exercises encourage and explained to help reduce edema and build strength. Pt has done it off and on throughout shift. Repositioning has been encouraged frequently and declined often. She is more lethargic and weaker than she was Tuesday. Her right hip is her biggest pain complaint today. Her urine output has been scant, 50ml., after 80mg of Lasix. Another 80mg of Lasix admin. this evening, next to no urine noted in catheter. Nephrology consulted today. Family has been attentive and at bedside throughout shift.
[2022-11-17] MEDS: atorvastatin 40 mg Tablet PO (20:05)
[2022-11-17] MEDS: enoxaparin 80 mg/0.8 mL Syringe 70 MG SUBCUT (20:06)
[2022-11-17] MEDS: ALPRAZolam 0.5 mg Tablet PO (20:07)
--- NOTE | 2022-11-17 21:10 | PM.PN ---
Subjective Subjective: decreased UO for last 2 days Medications: Reviewed: Yes Vitals/I&O/Wt Last Vital Signs Temp 98.3 F 11/17/22 17:00 Pulse 66 11/17/22 19:39 Resp 20 H 11/17/22 19:39 BP 163/61 11/17/22 18:00 Pulse Ox 99 11/17/22 19:39 O2 Del Method Nasal Cannula 11/17/22 19:39 O2 Flow Rate 4 11/17/22 19:39 FiO2 30 11/17/22 08:00 11/17/22 11/17/22 11/17/22 06:59 14:59 22:59 Intake Total 1260 / 1810 60 / 60 900 / 960 Output Total 40 / 190 50 / 50 Balance 1220 / 1620 60 / 60 850 / 910 Weight last 48 hrs Weight 150 lb Physical Exam Const: COMMON NORMALS: no acute distress, patient oriented x3 and alert GENERAL APPEARANCE: cooperative, comfortable, well kempt and well hydrated HENMT: COMMON NORMALS: hearing grossly normal bilaterally, external ears normal and moist oral mucous membranes FACE & SINUS: normal facial exam EXTERNAL EAR: Yes external ears normal Eye: COMMON NORMALS: EOMs intact bilaterally and no scleral icterus GENERAL EYE: appearance normal, both eyes and all related structures ALIGNMENT: Yes alignment normal Neck/C-Spine: COMMON NORMALS: supple and no JVD GENERAL: Yes normal visual inspection CAROTIDS: Yes normal carotid upstroke Chest: COMMONS NORMALS: normal inspection of the chest and normal palpation of entire chest wall CHEST: Yes Symmetrical chest wall rise and No tenderness Resp: COMMON NORMALS: clear to auscultation bilaterally AUSCULTATION: clear to auscultation bilaterally, no crackles, no rales, no rhonchi and no wheezes Cardio: COMMON NORMALS: no JVD, regular rate, regular rhythm, S1 normal heart sound present, S2 normal heart sound present and Peripheral pulses 2+ throughout PALPATION: normal PMI RATE: regular rate RHYTHM: regular rhythm HEART SOUNDS: S1 normal heart sound present, S2 normal heart sound present, no gallops and no murmurs BRUITS: no carotid bruits PERIPHERAL PULSES: Peripheral pulses 2+ throughout, radial pulses present, posterior tibial pulses present and dorsalis pedis present GI: COMMON NORMALS: Soft to palpation AUSCULTATION: Yes normoactive bowel sounds PALPATION: Yes Soft to palpation, No Tenderness to palpation present (GI), No Guarding due to palpation present (GI) and No Rigid due to palpation Extremity: GENERAL: Yes edema (3+ edema) Neuro: COMMON NORMALS: patient oriented x3 and no focal motor deficits SENSORIUM/ORIENTATION: Yes alert Psych: COMMON NORMALS: Normal thought process present and speech normal APPEARANCE: Yes well kempt SPEECH: Yes normal speech MOOD & AFFECT: Yes euthymic mood THOUGHT PROCESS: Normal thought process present THOUGHT CONTENT: Yes Normal thought content present Urinary Catheter Management: Lim: Cath Placed During This Visit: yes Reason for Continuing Indwelling Catheter: Accurate Measurement of Urinary Output in Critically Ill Patients Urinary Catheter Date of Insertion: 11/07/22 Urinary Catheter Time of Insertion: 19:00 Data 11/17/22 05:13 11/17/22 05:13 A&P Assessment and plan (1) NSTEMI (non-ST elevated myocardial infarction): Patient is status post successful revascularization of left main artery with EDUARDO x2. Continue aspirin, Plavix, statin and metoprolol and statin. continue metoprolol 25mg BID - decreased UO, will give another lasix 80 mg IV x 1 and repeat another dose later this evening if continues to have decreased UO (2) Coronary artery disease: Qualifiers: Coronary Disease-Associated Artery/Lesion type: [place] artery [place] vs. transplanted heart: [place] heart Associated angina: without angina Qualified Code(s): I25.10 - Atherosclerotic heart disease of [place] coronary artery without angina pectoris (3) Dyslipidemia (high LDL; low HDL): (4) Chronic hyponatremia: Plan Paroxysmal Atrial fibrillation: remains in sinus; on amiodarone and lovenox CHF: DAXA : HTN Chronic anemia Constipation Hypothyroidism Attestations Medical Necessity Statement*: needs hospital stay for DAXA, CHF and NSTEMI Coding Level of Care Code Acute Code for [facility] Fwd Diagnoses NSTEMI (non-ST elevated myocardial infarction) I21.4 Coronary artery disease I25.10 Coronary Disease-Associated Artery/Lesion type: [place] artery [place] vs. transplanted heart: [place] heart Associated angina: without angina Dyslipidemia (high LDL; low HDL) E78.5 Chronic hyponatremia E87.1
--- NOTE | 2022-11-17 21:30 | PC.NURSE ---
Dr. Grover, nephrology, called at 21:23, discussed details of the patient. Decided to continue with current plan of care. No more diuretics today, will reassess kidney function and need for dieresis tomorrow. Dr. Marquez called with new orders to give [address] Grover's recommendations not to give anymore diuretics today was communicated to Dr. Marquez Orders to give Bumex.
[2022-11-17] MEDS: bumetanide 0.25 mg/mL SDV 10 mL 2 MG IVP (22:19)
--- NOTE | 2022-11-17 23:25 | PM.CONSULT ---
Providers/Reason For Consult Consulting Physician/Specialty*: kobhargavi/[facility]relrology Reason for Consult*: Acute on CKD Attending Physician: Steven Bullock MD Primary Care Provider: Doe Bui MD History of Present Illness History of Present Illness Patient is a 82-year-old female with past medical history of coronary artery disease, history of prior SD, hypertension chronic hyponatremia who was recently admitted for acute on chronic hyponatremia and was discharged home on 11/03/2022. Patient was sent back from the [facility] on 11/07/2022 due to worsening hyponatremia , she was noted to be in CHF exacerbation and started on IV Lasix and was placed on fluid restriction to 1500 cc. During the course of hospital stay patient had troponin elevation and was found to be in NSTEMI status post left heart cath with PCI to left main. Sodium was 120 on presentation improved to 125 currently. Creatinine was normal at 0.8 which \increased now to 1.9 postcardiac cath. Also he is oliguric. Review of Systems Narrative: unable to pbtaon from pt Medications/Allergies Home Medications Medication Instructions Recorded Confirmed Last Taken Type hydrocodone 10 mg-acetaminophen 1 tab PO Q4H PRN Pain 30 days #180 09/27/22 11/07/22 11/07/22 Rx 325 mg tablet tabs felodipine 10 mg tablet,extended 10 mg PO DAILY@08 10/08/22 11/07/22 11/07/22 History release 24 hr gabapentin 100 mg capsule 100 mg PO BID 10/08/22 11/07/22 11/07/22 History tamsulosin 0.4 mg capsule 0.4 mg PO BID 10/08/22 11/07/22 11/07/22 History albuterol sulfate 90 mcg/actuation 1 inh inhalation Q6H PRN shortness 10/10/22 11/07/22 Unknown Rx aerosol inhaler of breath or wheezing #8.5 grams ondansetron HCl 4 mg tablet 4 mg PO Q6H PRN nausea and 10/14/22 11/07/22 Unknown Rx vomiting #30 tabs benzonatate 100 mg capsule 100 mg PO TID PRN Cough 10/16/22 11/07/22 Unknown History clonidine HCl 0.1 mg tablet 0.1 mg PO BID #60 tabs 10/27/22 11/07/22 11/07/22 Rx hydralazine 25 mg tablet 25 mg PO TID #90 tabs 10/27/22 11/07/22 11/07/22 Rx lactulose 10 gram/15 mL (15 mL) 10 g (15 mL) PO DAILY PRN 10/29/22 11/07/22 Unknown Rx oral solution constipation #473 mL acetaminophen 325 mg tablet 650 mg PO Q6H PRN Pain 11/07/22 11/07/22 Unknown History (Tylenol) bisacodyl 10 mg rectal suppository 10 mg UT DAILY PRN Constipation 11/07/22 11/07/22 Unknown History (Dulcolax (bisacodyl)) bisacodyl 5 mg tablet,delayed 10 mg PO DAILY PRN Constipation 11/07/22 11/07/22 Unknown History release (Dulcolax (bisacodyl)) furosemide 20 mg tablet 20 mg PO DAILY@11/07/22 11/07/22 11/07/22 History isosorbide mononitrate 60 mg 60 mg PO DAILY@11/07/22 11/07/22 11/07/22 History tablet,extended release 24 hr levothyroxine 88 mcg tablet 88 mcg PO DAILY@11/07/22 11/07/22 11/07/22 History magnesium hydroxide 400 mg/5 mL 30 ml PO .EVERY 72 HOURS PRN if no 11/07/22 11/07/22 Unknown History oral suspension (Milk of Magnesia) bm in 3 days *do not give to renal pts* magnesium oxide 400 mg (241.3 mg 400 mg PO BID 11/07/22 11/07/22 11/07/22 History magnesium) tablet menthol 0.44 %-zinc oxide 20.6 % See Rx Instructions .Route .COMPLEX 11/07/22 11/07/22 11/07/22 History topical ointment (Calmoseptine) potassium chloride 20 mEq 20 meq PO DAILY@11/07/22 11/07/22 11/07/22 History tablet,extended release(part/cryst) (Klor-Con M) sodium phosphates 19 gram-7 118 ml [place] DAILY PRN Constipation 11/07/22 11/07/22 Unknown History gram/118 mL enema (Fleet Enema) valsartan 160 mg tablet 160 mg PO BID 11/07/22 11/07/22 11/07/22 History Allergies Allergy/AdvReac Type Severity Reaction Status Date / Time prazosin Allergy Severe ALGY-Difficulty Verified 11/07/22 12:55 Breathing Current Medications Generic Name Dose Route Start Last Admin Trade Name Freq PRN Reason Stop Dose Admin Hydrocodone Bitart/Acetaminophen 1 tab 11/16/22 00:21 11/17/22 20:49 Hydrocodone-Acetaminophen 10-325 Mg Tablet PO 1 tab Q4H PRN Administration MODERATE PAIN Albuterol/Ipratropium 3 ml 11/16/22 08:00 11/17/22 19:39 Ipratropium-Albuterol 3 Ml Neb INHALATION 3 ml QID.RESPIRATORY IMMANUEL Administration Alprazolam 0.5 mg 11/17/22 10:38 11/17/22 20:07 Alprazolam 0.5 Mg Tablet PO 0.5 mg TID PRN Administration ANXIETY Amiodarone HCl 400 mg 11/15/22 21:00 11/17/22 17:44 Amiodarone 200 Mg Tablet PO 400 mg BID IMMANUEL Administration Aspirin 81 mg 11/11/22 09:00 11/17/22 08:11 Aspirin 81 Mg Chew Tablet PO 81 mg DAILY IMMANUEL Administration Atorvastatin Calcium 40 mg 11/10/22 21:00 11/17/22 20:05 Atorvastatin 40 Mg Tablet PO 40 mg BEDTIME IMMANUEL Administration Bisacodyl 10 mg 11/07/22 17:16 11/11/22 13:56 Bisacodyl 5 Mg Tablet PO 10 mg DAILY PRN Administration Constipation Budesonide 0.5 mg 11/10/22 20:00 11/17/22 19:39 Budesonide 0.5 Mg/2 Ml Neb INHALATION 0.5 mg BID.RESPIRATORY IMMANUEL Administration Citalopram Hydrobromide 10 mg 11/13/22 09:00 11/17/22 08:11 Citalopram 20 Mg Tablet PO 10 mg DAILY IMMANUEL Administration Clopidogrel Bisulfate 75 mg 11/11/22 09:00 11/17/22 08:11 Clopidogrel 75 Mg Tablet PO 75 mg DAILY IMMANUEL Administration Enoxaparin Sodium 70 mg 11/16/22 21:00 11/17/22 20:06 Enoxaparin 80 Mg/0.8 Ml Syringe SUBCUT 70 mg Q24H IMMANUEL Administration Gabapentin 100 mg 11/07/22 18:00 11/17/22 17:44 Gabapentin 100 Mg Capsule PO 100 mg BID IMMANUEL Administration Hydralazine HCl 25 mg 11/16/22 21:00 11/17/22 20:05 Hydralazine 25 Mg Tablet PO 25 mg TID IMMANUEL Administration Albumin Human 25 g in 100 mls @ 60 mls/hr 11/17/22 17:00 11/17/22 19:13 Albumin IV Infused Q8H IMMANUEL Infusion Isosorbide Mononitrate 60 mg 11/17/22 09:00 11/17/22 08:11 Isosorbide Mononitrate Er 60 Mg Tablet PO 60 mg DAILY IMMANUEL Administration Levothyroxine Sodium 88 mcg 11/08/22 05:00 11/17/22 04:21 Levothyroxine 88 Mcg Tablet PO 88 mcg DAILY@05 IMMANUEL Administration Lidocaine 1 patch 11/15/22 21:00 11/17/22 20:06 Lidocaine 5% Patch TOPICAL Not Given [id number] IMMANUEL Magnesium Hydroxide 30 ml 11/11/22 16:56 11/11/22 17:08 Magnesium Hydroxide 30 Ml Udc PO 30 ml DAILY PRN Administration CONSTIPATION Magnesium Oxide 400 mg 11/07/22 18:00 11/17/22 17:43 Magnesium Oxide 400 Mg Tablet PO 400 mg BID IMMANUEL Administration Metoprolol Tartrate 25 mg 11/16/22 21:00 11/17/22 20:05 Metoprolol Tartrate 25 Mg Tablet PO 25 mg BID@0900,2100 IMMANUEL Administration Sodium Chloride 1 gm 11/07/22 21:00 11/17/22 20:05 Sodium Chloride 1 Gm Tablet PO 1 gm TID IMMANUEL Administration Tamsulosin HCl 0.4 mg 11/14/22 09:00 11/17/22 08:11 Tamsulosin 0.4 Mg Capsule PO 0.4 mg DAILY IMMANUEL Administration PFSH Acute PFSH: Medical History (Updated 11/14/22 @ 15:16 by Amari Avila MD) Acute exacerbation of CHF (congestive heart failure) Acute hyponatremia Anemia Aortic stenosis Cervical radiculopathy Chronic hyponatremia Chronic hyponatremia Chronic low back pain Has had recent back surgery Chronic respiratory failure with hypoxia Community acquired pneumonia Congestive heart failure Corneal abrasion, right Coronary artery disease Degenerative scoliosis Dehydration DNR (do not resuscitate) Elevated troponin Encounter for pre-operative cardiovascular clearance Facet arthritis, degenerative, lumbar spine Fluid overload Generalized weakness History of SD (myocardial infarction) 2017--had coronary artery stent placed Hypertension Chronic hypertension diagnosed at the age of 31. Follows up with cardiology Dr. Castellanos as well as her primary care provider. Hypertensive urgency Hypo-osmolar hyponatremia Serum osmolarity 255, urine osmolality 288, urine sodium 73, hypervolemic hyponatremia Hypoxia Lumbar stenosis with neurogenic claudication Malaise and fatigue Nausea No pertinent past medical history Denies diabetes, asthma, seizures, DVT/PE PCP: Dr. Bui Peripheral neuropathy Pneumonia Right lower lobe pneumonia Uncontrolled hypertension Vaginal prolapse 09/30/2021--grade 3-4 cystocele, grade 3 vault prolapse, grade 1 rectocele Surgical History History of back surgery March 2021--performed by Dr. Nunez at [facility] – [place]. History of heart artery stent 2017 after heart attack History of tubal ligation In her mid 30s---done through supra umbilical minilaparotomy incision S/P hysterectomy Vaginal hysterectomy for prolapse performed by Dr. George in 2018. Her ovaries were not removed. Family History Mother Heart disease Hypertension Colon cancer diagnosed in her late 60s Daughter Heart disease Family/Other Breast cancer maternal aunt, age at diagnosis unknown Social History Smoking and tobacco status: never smoked Alcohol intake: never Substance/Drug Use: never Vitals/I&O/Wt Last Vital Signs Temp 98.2 F 11/17/22 20:00 Pulse 61 11/17/22 22:00 Resp 17 11/17/22 21:00 BP 161/60 11/17/22 21:00 Pulse Ox 90 11/17/22 20:00 O2 Del Method Nasal Cannula 11/17/22 19:39 O2 Flow Rate 4 11/17/22 19:39 FiO2 30 11/17/22 08:00 11/17/22 11/17/22 11/18/22 14:59 22:59 06:59 Intake Total 60 / 60 1140 / 1200 Output Total 50 / 50 Balance 60 / 60 1090 / 1150 Weight last 48 hrs Weight 68.039 kg Physical Exam Narrative: lethargic no distress s1s2 rrr per report bibasilar crackles per report +LE edema Urinary Catheter Management: Lim: Cath Placed During This Visit: yes Reason for Continuing Indwelling Catheter: Accurate Measurement of Urinary Output in Critically Ill Patients Urinary Catheter Date of Insertion: 11/07/22 Urinary Catheter Time of Insertion: 19:00 Data 11/17/22 05:13 11/17/22 05:13 A&P Assessment and plan (1) Acute kidney insufficiency: Plan 1. Acute kidney injury: Baseline creatinine is 0.8. Now has creatinine of 1.9 most likely secondary to contrast nephropathy in the setting of cardiogenic shock and NSTEMI. Continue to monitor, noted patient is occluded. No acidosis, no hyperkalemia currently. If renal function continues to get worse will require renal replacement therapy temporarily. Agree with IV albumin 2. Hyponatremia: Acute on chronic, baseline sodium in the high 120s to low 130s range secondary to possible CHF. Creatinine worse at 120 on presentation currently at 125, continue to monitor continue fluid restriction. 3. Cardiogenic shock in the setting of NSTEMI: Status post PCI to left main. Cardiology following 4. A-fib with RVR 5. Acute on chronic respiratory failure: Secondary to hypoxia and hypercapnia Patient evaluated using audiovisual cart. Time spent 45 minutes Consult Attestations Medical Necessity Statement: per medicine Coding Level of Care Code Acute Code for g Fwd Diagnoses Acute kidney insufficiency N28.9
[2022-11-18] VITALS (28 sets, daily range): BP systolic 127–177; BP diastolic 43–71; PULSE 51–71; RESP 11–27; TEMP 35.8–36.8; O2SAT 90–100
[2022-11-18] MEDS: albumin 25 G/100 ML BAG 60 G IV (01:16)
[2022-11-18 03:17] LABS: Basophils % 0.3 %; Eosinophils # 0.1 10^3/uL (0.0-0.8); Eosinophils % 0.7 %; Hemoglobin 7.2 g/dL (11.5-15.3); Lymphocytes # 0.4 10^3/uL (0.8-4.8); Lymphocytes % 4.8 %; Mean Corpuscular Hemoglobin 30.6 pg (28.0-34.0); Mean Corpuscular Volume 102.1 fl (81-99); Mean Platelet Volume 10.3 fL (7.4-10.4); Monocytes # 0.6 10^3/uL (0.2-0.9); Monocytes % 8.5 %; Neutrophils # 6.29 10^3/uL (1.8-7.7); Neutrophils % 84.6 %; Nucleated Red Blood Cells % 0 %; Platelet Count 346 10^3/cmm (130-400); Red Blood Count 2.35 10^6/uL (4.1-5.3); Red Cell Distribution Width 15.1 % (12.1-15.1); White Blood Count 7.4 10^3/uL (4.0-10.0)
[2022-11-18 03:40] LABS: Anion Gap 14.3 (5-19); Blood Urea Nitrogen 48 mg/dL (8-23); Calcium 7.9 mg/dL (8.5-10.5); Carbon Dioxide 28 mmol/L (22-29); Chloride 89 mmol/L (98-107); Glucose 104 mg/dL (65-115); Osmolality Calculated 277 mOsm/kg (285-295); Potassium 4.3 mmol/L (3.5-5.1); Sodium 127 mmol/L (136-145)
--- NOTE | 2022-11-18 05:28 | P.PN_ITS ---
Subjective Subjective: lethargic, family at beside right femerol vein HD catheter placed earlier today Medications: Medication Review Details: albumin infusion, furosemide 200 mg IV yesterday, 4 mg bumex, Mg, NaCl Vitals/I&O/Wt Last Vital Signs Temp 98 F 11/18/22 04:00 Pulse 56 L 11/18/22 05:00 Resp 12 11/18/22 05:00 BP 157/68 11/18/22 05:00 Pulse Ox 95 11/18/22 03:00 O2 Del Method Nasal Cannula 11/17/22 19:39 O2 Flow Rate 4 11/17/22 19:39 FiO2 30 11/17/22 08:00 11/17/22 11/17/22 11/18/22 14:59 22:59 06:59 Intake Total 60 / 60 1140 / 1200 100 / 1300 Output Total 50 / 50 Balance 60 / 60 1090 / 1150 100 / 1250 Weight last 48 hrs Weight 68.039 kg Physical Exam Const: COMMON NORMALS: no acute distress Extremity: NARRATIVE EXTREMITY EXAM: 2+ edema Urinary Catheter Management: Lim: Cath Placed During This Visit: yes Reason for Continuing Indwelling Catheter: Accurate Measurement of Urinary Output in Critically Ill Patients Urinary Catheter Date of Insertion: 11/07/22 Urinary Catheter Time of Insertion: 19:00 Data 11/18/22 02:30 11/18/22 02:30 Other Labs: albumin 2.4, Ca 7.9, keith Ca 9.1 CT Abd/Pel: Radiologist's impression: 10/29/22 Adrenal glands: Unremarkable. No mass. Kidneys and ureters: Atrophy of the upper/mid left kidney. No renal cyst or mass. No hydronephrosis. US: Radiologist's impression: Right kidney: 9.5 cm x 4.8 cm x 5.8 cm. Cortex:? 1.2 cm Limited visualization of the kidney due to immobility of the patient. Kidney is low normal size. Loss of the normal echotexture in the central kidney. No hydr onephrosis and no mass identified. Left kidney: 10.1 cm x 6.0 cm x 5.5 cm. Cortex:? 1.5 cm Very difficult visualization of the kidney. Measurements are not accurate. No gross hydronephrosis. Bladder nondistended Other data: seen via telemedicine with assistance of RN at bedside A&P Assessment and plan (1) Acute kidney injury: Plan 1. Acute oligoanuric renal failure due to cardiogenic shock, contrast. Minimal urine output, I/O positive 4L in 3 days 2. Hyponatremia, stable 3. Anemia Recommend: discontinue IV albumin, Mg, initiate HD, check iron studies, phos, Mg patient and family questions answered. HD today 3h 1500 ml UF, HD again tomorrow Attestations Medical Necessity Statement*: critically ill in ICU Time Spent in Patient Care: 16 - 35 minutes Coding Level of Care Code Acute Code for Chg Fwd Diagnoses Acute kidney injury N17.9
--- NOTE | 2022-11-18 05:45 | US_ITS ---
WS: [id number] RENAL ULTRASOUND HISTORY: DAXA COMPARISON: None available. TECHNIQUE: 2-D and color Doppler imaging of the kidney submitted. Right kidney: 9.5 cm x 4.8 cm x 5.8 cm. Cortex: 1.2 cm Limited visualization of the kidney due to immobility of the patient. Kidney is low normal size. Loss of the normal echotexture in the central kidney. No hydronephrosis and no mass identified. Left kidney: 10.1 cm x 6.0 cm x 5.5 cm. Cortex: 1.5 cm Very difficult visualization of the kidney. Measurements are not accurate. No gross hydronephrosis. Aorta: Not visualized. Urinary Bladder: Nondistended. US/US renal BI* [id number] IMPRESSION: 1. Extremely limited evaluation of the kidneys. 2. Low normal size RIGHT kidney with no hydronephrosis. 3. Poorly visualized LEFT kidney. Incomplete evaluation.
[2022-11-18] MEDS: levothyroxine 88 mcg Tablet PO (05:59)
[2022-11-18] MEDS: HYDROcodone-acetaminophen 10-325 mg Tablet 1 TAB PO ×3 (06:20→20:52)
[2022-11-18] MEDS: budesonide 0.5 mg/2 mL Neb INHALATION (07:45)
[2022-11-18] MEDS: ipratropium-albuterol 3 mL Neb INHALATION (07:45)
[2022-11-18] MEDS: aspirin 81 mg Chew Tablet PO (08:25)
[2022-11-18] MEDS: sodium chloride 1 gm Tablet PO ×3 (08:25→20:51)
[2022-11-18] MEDS: citalopram 20 mg Tablet 10 MG PO (08:25)
[2022-11-18] MEDS: hyDRALAzine 25 mg Tablet PO ×3 (08:25→20:51)
[2022-11-18] MEDS: isosorbide mononitrate ER 60 mg Tablet PO (08:25)
[2022-11-18] MEDS: gabapentin 100 mg Capsule PO ×2 (08:25→17:14)
[2022-11-18] MEDS: tamsulosin 0.4 mg Capsule PO (08:25)
[2022-11-18] MEDS: amiodarone 200 mg Tablet 400 MG PO ×2 (08:26→17:14)
[2022-11-18] MEDS: clopidogrel 75 mg Tablet PO (08:26)
[2022-11-18] MEDS: metoprolol tartrate 25 mg Tablet PO (08:26)
[2022-11-18] MEDS: lidocaine 5% Patch 1 PATCH TOPICAL ×2 (08:27→20:52)
--- NOTE | 2022-11-18 10:26 | PM.CONSULT ---
Providers/Reason For Consult Consulting Physician/Specialty*: Dr. Mk Lacey, DO/General surgery Reason for Consult*: Temporary hemodialysis catheter placement Attending Physician: Steven Bullock MD Primary Care Provider: Doe Bui MD History of Present Illness History of Present Illness Kati Chris is a 82 year old female who presented to the hospital with hyponatremia and was found to be in heart failure. She was also found to have an NSTEMI and recently underwent cardiac catheterization. She is oliguric and has acute kidney injury. Nephrology requested temporary hemodialysis catheter placement. Review of Systems General: Reports: 10 or more systems reviewed and unremarkable except in HPI and below Medications/Allergies Home Medications Medication Instructions Recorded Confirmed Last Taken Type hydrocodone 10 mg-acetaminophen 1 tab PO Q4H PRN Pain 30 days #180 09/27/22 11/07/22 11/07/22 Rx 325 mg tablet tabs felodipine 10 mg tablet,extended 10 mg PO DAILY@08 10/08/22 11/07/22 11/07/22 History release 24 hr gabapentin 100 mg capsule 100 mg PO BID 10/08/22 11/07/22 11/07/22 History tamsulosin 0.4 mg capsule 0.4 mg PO BID 10/08/22 11/07/22 11/07/22 History albuterol sulfate 90 mcg/actuation 1 inh inhalation Q6H PRN shortness 10/10/22 11/07/22 Unknown Rx aerosol inhaler of breath or wheezing #8.5 grams ondansetron HCl 4 mg tablet 4 mg PO Q6H PRN nausea and 10/14/22 11/07/22 Unknown Rx vomiting #30 tabs benzonatate 100 mg capsule 100 mg PO TID PRN Cough 10/16/22 11/07/22 Unknown History clonidine HCl 0.1 mg tablet 0.1 mg PO BID #60 tabs 10/27/22 11/07/22 11/07/22 Rx hydralazine 25 mg tablet 25 mg PO TID #90 tabs 10/27/22 11/07/22 11/07/22 Rx lactulose 10 gram/15 mL (15 mL) 10 g (15 mL) PO DAILY PRN 10/29/22 11/07/22 Unknown Rx oral solution constipation #473 mL acetaminophen 325 mg tablet 650 mg PO Q6H PRN Pain 11/07/22 11/07/22 Unknown History (Tylenol) bisacodyl 10 mg rectal suppository 10 mg DE DAILY PRN Constipation 11/07/22 11/07/22 Unknown History (Dulcolax (bisacodyl)) bisacodyl 5 mg tablet,delayed 10 mg PO DAILY PRN Constipation 11/07/22 11/07/22 Unknown History release (Dulcolax (bisacodyl)) furosemide 20 mg tablet 20 mg PO DAILY@11/07/22 11/07/22 11/07/22 History isosorbide mononitrate 60 mg 60 mg PO DAILY@11/07/22 11/07/22 11/07/22 History tablet,extended release 24 hr levothyroxine 88 mcg tablet 88 mcg PO DAILY@11/07/22 11/07/22 11/07/22 History magnesium hydroxide 400 mg/5 mL 30 ml PO .EVERY 72 HOURS PRN if no 11/07/22 11/07/22 Unknown History oral suspension (Milk of Magnesia) bm in 3 days *do not give to renal pts* magnesium oxide 400 mg (241.3 mg 400 mg PO BID 11/07/22 11/07/22 11/07/22 History magnesium) tablet menthol 0.44 %-zinc oxide 20.6 % See Rx Instructions .Route .COMPLEX 11/07/22 11/07/22 11/07/22 History topical ointment (Calmoseptine) potassium chloride 20 mEq 20 meq PO DAILY@11/07/22 11/07/22 11/07/22 History tablet,extended release(part/cryst) (Klor-Con M) sodium phosphates 19 gram-7 118 ml DE DAILY PRN Constipation 11/07/22 11/07/22 Unknown History gram/118 mL enema (Fleet Enema) valsartan 160 mg tablet 160 mg PO BID 11/07/22 11/07/22 11/07/22 History Allergies Allergy/AdvReac Type Severity Reaction Status Date / Time prazosin Allergy Severe ALGY-Difficulty Verified 11/07/22 12:55 Breathing Current Medications Generic Name Dose Route Start Last Admin Trade Name Freq PRN Reason Stop Dose Admin Hydrocodone Bitart/Acetaminophen 1 tab 11/16/22 00:21 11/18/22 06:20 Hydrocodone-Acetaminophen 10-325 Mg Tablet PO 1 tab Q4H PRN Administration MODERATE PAIN Alprazolam 0.5 mg 11/17/22 10:38 11/17/22 20:07 Alprazolam 0.5 Mg Tablet PO 0.5 mg TID PRN Administration ANXIETY Amiodarone HCl 400 mg 11/15/22 21:00 11/18/22 08:26 Amiodarone 200 Mg Tablet PO 400 mg BID IMMANUEL Administration Aspirin 81 mg 11/11/22 09:00 11/18/22 08:25 Aspirin 81 Mg Chew Tablet PO 81 mg DAILY IMMANUEL Administration Atorvastatin Calcium 40 mg 11/10/22 21:00 11/17/22 20:05 Atorvastatin 40 Mg Tablet PO 40 mg BEDTIME IMMANUEL Administration Bisacodyl 10 mg 11/07/22 17:16 11/11/22 13:56 Bisacodyl 5 Mg Tablet PO 10 mg DAILY PRN Administration Constipation Budesonide 0.5 mg 11/10/22 20:00 11/18/22 07:45 Budesonide 0.5 Mg/2 Ml Neb INHALATION 0.5 mg BID.RESPIRATORY IMMANUEL Administration Citalopram Hydrobromide 10 mg 11/13/22 09:00 11/18/22 08:25 Citalopram 20 Mg Tablet PO 10 mg DAILY IMMANUEL Administration Clopidogrel Bisulfate 75 mg 11/11/22 09:00 11/18/22 08:26 Clopidogrel 75 Mg Tablet PO 75 mg DAILY IMMANUEL Administration Enoxaparin Sodium 70 mg 11/16/22 21:00 11/17/22 20:06 Enoxaparin 80 Mg/0.8 Ml Syringe SUBCUT 70 mg Q24H IMMANUEL Administration Gabapentin 100 mg 11/07/22 18:00 11/18/22 08:25 Gabapentin 100 Mg Capsule PO 100 mg BID IMMANUEL Administration Hydralazine HCl 25 mg 11/16/22 21:00 11/18/22 08:25 Hydralazine 25 Mg Tablet PO 25 mg TID IMMANUEL Administration Isosorbide Mononitrate 60 mg 11/17/22 09:00 11/18/22 08:25 Isosorbide Mononitrate Er 60 Mg Tablet PO 60 mg DAILY IMMANUEL Administration Levothyroxine Sodium 88 mcg 11/08/22 05:00 11/18/22 05:59 Levothyroxine 88 Mcg Tablet PO 88 mcg DAILY@05 IMMANUEL Administration Lidocaine 1 patch 11/15/22 21:00 11/18/22 08:27 Lidocaine 5% Patch TOPICAL 1 patch [id number] IMMANUEL Administration Magnesium Hydroxide 30 ml 11/11/22 16:56 11/11/22 17:08 Magnesium Hydroxide 30 Ml Udc PO 30 ml DAILY PRN Administration CONSTIPATION Metoprolol Tartrate 25 mg 11/16/22 21:00 11/18/22 08:26 Metoprolol Tartrate 25 Mg Tablet PO 25 mg BID@0900,2100 IMMANUEL Administration Sodium Chloride 1 gm 11/07/22 21:00 11/18/22 08:25 Sodium Chloride 1 Gm Tablet PO 1 gm TID IMMANUEL Administration Tamsulosin HCl 0.4 mg 11/14/22 09:00 11/18/22 08:25 Tamsulosin 0.4 Mg Capsule PO 0.4 mg DAILY IMMANUEL Administration PFSH Acute PFSH: Medical History Acute exacerbation of CHF (congestive heart failure) Acute hyponatremia Anemia Aortic stenosis Cervical radiculopathy Chronic hyponatremia Chronic hyponatremia Chronic low back pain Has had recent back surgery Chronic respiratory failure with hypoxia Community acquired pneumonia Congestive heart failure Corneal abrasion, right Coronary artery disease Degenerative scoliosis Dehydration DNR (do not resuscitate) Elevated troponin Encounter for pre-operative cardiovascular clearance Facet arthritis, degenerative, lumbar spine Fluid overload Generalized weakness History of [place] (myocardial infarction) 2018--had coronary artery stent placed Hypertension Chronic hypertension diagnosed at the age of 31. Follows up with cardiology Dr. Castellanos as well as her primary care provider. Hypertensive urgency Hypo-osmolar hyponatremia Serum osmolarity 255, urine osmolality 288, urine sodium 73, hypervolemic hyponatremia Hypoxia Lumbar stenosis with neurogenic claudication Malaise and fatigue Nausea No pertinent past medical history Denies diabetes, asthma, seizures, DVT/PE PCP: Dr. Bui Peripheral neuropathy Pneumonia Right lower lobe pneumonia Uncontrolled hypertension Vaginal prolapse 09/30/2021--grade 3-4 cystocele, grade 3 vault prolapse, grade 1 rectocele Surgical History (Updated 11/18/22 @ 10:28 by Mk Lacey DO) H/O vaginal surgery 11/25/2021- colpocleisis, SIS and cystoscopy on 11/25/2021 History of back surgery March 2021--performed by Dr. Nunez at [facility] – [place]. History of heart artery stent 2018 after heart attack History of tubal ligation In her mid 30s---done through supra umbilical minilaparotomy incision S/P hysterectomy Vaginal hysterectomy for prolapse performed by Dr. George in 2018. Her ovaries were not removed. Family History Mother Heart disease Hypertension Colon cancer diagnosed in her late 60s Daughter Heart disease Family/Other Breast cancer maternal aunt, age at diagnosis unknown Social History Smoking and tobacco status: never smoked Alcohol intake: never Substance/Drug Use: never Vitals/I&O/Wt Last Vital Signs Temp 98.2 F 11/18/22 08:00 Pulse 63 11/18/22 09:00 Resp 24 H 11/18/22 09:00 BP 176/58 11/18/22 09:00 Pulse Ox 93 11/18/22 09:00 O2 Del Method Nasal Cannula 11/18/22 07:45 O2 Flow Rate 4 11/18/22 07:45 FiO2 30 11/18/22 08:00 11/17/22 11/18/22 11/18/22 22:59 06:59 14:59 Intake Total 1140 / 1200 100 / 1300 Output Total 50 / 50 50 / 100 Balance 1090 / 1150 50 / 1200 Weight last 48 hrs Weight 156 lb Weight 150 lb Physical Exam Narrative: General : Patient is well developed , no acute distress, oriented x3 Head : Normal cephalic, a-traumatic. Ears : Pinnae and external canal are normal. Hearing is normal. Eyes : PERRLA, Sclera and injection are normal. No conjunctival discharge. Nose : Mucous membranes are without erythema. Throat : buccal mucosa is normal, gums are without significant recession or hypertrophy. Lungs : Equal chest rise bilaterally, no use of accessory muscles, trachea is midline. Cor : Rate and rhythm are normal. Abdomen : Soft, ND, NT, no g/r/m Extremities : Positive pitting edema, no cyanosis or clubbing, dorsalis pedis pulses are present bilaterally, non-tender to palpation of calves. Upper extremities are normal bilaterally. Back : non-tender to palpation, no CVA tenderness. Neuro : CN II - XII intact, Upper and lower extremities have equal and full strength Urinary Catheter Management: Lim: Cath Placed During This Visit: yes Reason for Continuing Indwelling Catheter: Accurate Measurement of Urinary Output in Critically Ill Patients Urinary Catheter Date of Insertion: 11/07/22 Urinary Catheter Time of Insertion: 19:00 Data 11/18/22 02:30 11/18/22 02:30 A&P Assessment and plan (1) Acute kidney insufficiency: Plan Temporary hemodialysis catheter placement The risk and benefits of the procedure, including but not limited to, bleeding, infection, damage to surrounding structures, scar, numbness, pain, were explained to the patient and her . Informed consent was obtained by the . Coding Level of Care Code 60541 Diagnoses Acute kidney insufficiency N28.9
--- NOTE | 2022-11-18 10:29 | P.PCN_ITS ---
Procedure Note: Procedure: Preoperative diagnosis: Acute renal failure requiring emergent dialysis Postoperative diagnosis: Same Procedure: Placement of Mahurkar catheter in the right femoral vein Surgeon: Dr. Mk Lacey, DO Anesthesia: Local Description of procedure: The patient's right groin was prepped and draped in a sterile manner. 5 mL of 1% lidocaine was infiltrated at the site of planned entry, an introducer needle was used to access the right femoral vein. Guidewire was passed through the introducer needle and the introducer needle was removed. Serial dilators were passed over the guidewire after the skin incision was extended using 11 blade and Mahurkar catheter was then passed over the ronaldo dewire and the guidewire was removed. The catheter was sutured to the skin using 2-0 Ethilon suture. Sterile dressings were applied. Coding Level of Care Code Acute Code for Chg Fwd
[2022-11-18] MEDS: heparin, porcine 1,000 unit/mL INJ 10 mL 1000 UNIT IV (13:40)
[2022-11-18 13:42] LABS: Hepatitis B Surface Antigen Non-Reactive (Nonreactive)
[2022-11-18 15:05] LABS: Hepatitis C Virus Antibody Non-Reactive (Nonreactive)
[2022-11-18 16:11] LABS: Hepatitis B Surface AB > 1000.0 (11.5-1000)
--- NOTE | 2022-11-18 17:06 | P.PN_ITS ---
Subjective Subjective: Patient was seen and examined this morning, continued to have extremely poor urine output in spite of getting high-dose of diuretic ,was lethargic and drowsy this morning, nephrology plan to diurese the patient today, temporary dialysis catheter has been placed. Patient was also complaining of severe back pain, for which she received morphine 2 mg IV one-time dose, and was placed on morphine as needed. Medications: Reviewed: Yes Medication Review Details: Generic Name Dose Route Start Last Admin Trade Name Freq PRN Reason Stop Dose Admin Hydrocodone Bitart /Acetaminophen 1 tab 11/16/22 00:21 11/18/22 16:08 Hydrocodone-Acet aminophen 10-325 M g Tablet PO 1 tab Q4H PRN Administration MODERATE PAIN Alprazolam 0.5 mg 11/17/22 10:38 11/17/22 20:07 Alprazolam 0.5 M g Tablet PO 0.5 mg TID PRN Administration ANXIETY Amiodarone HCl 400 mg 11/15/22 21:00 11/18/22 08:26 Amiodarone 200 M g Tablet PO 400 mg BID IMMANUEL Administration Aspirin 81 mg 11/11/22 09:00 11/18/22 08:25 Aspirin 81 Mg Ch ew Tablet PO 81 mg DAILY IMMANUEL Administration Atorvastatin Calci um 40 mg 11/10/22 21:00 11/17/22 20:05 Atorvastatin 40 Mg Tablet PO 40 mg BEDTIME IMMANUEL Administration Bisacodyl 10 mg 11/07/22 17:16 11/11/22 13:56 Bisacodyl 5 Mg T ablet PO 10 mg DAILY PRN Administration Constipation Budesonide 0.5 mg 11/10/22 20:00 11/18/22 07:45 Budesonide 0.5 M g/2 Ml Neb INHALATION 0.5 mg BID.RESPIRATORY S CH Administration Citalopram Hydrobr omide 10 mg 11/13/22 09:00 11/18/22 08:25 Citalopram 20 Mg Tablet PO 10 mg DAILY IMMANUEL Administration Clopidogrel Bisulf ate 75 mg 11/11/22 09:00 11/18/22 08:26 Clopidogrel 75 M g Tablet PO 75 mg DAILY IMMANUEL Administration Enoxaparin Sodium 70 mg 11/16/22 21:00 11/17/22 20:06 Enoxaparin 80 Mg /0.8 Ml Syringe SUBCUT 70 mg Q24H IMMANUEL Administration Gabapentin 100 mg 11/07/22 18:00 11/18/22 08:25 Gabapentin 100 M g Capsule PO 100 mg BID IMMANUEL Administration Hydralazine HCl 25 mg 11/16/22 21:00 11/18/22 16:08 Hydralazine 25 M g Tablet PO 25 mg TID IMMANUEL Administration Isosorbide Mononit rate 60 mg 11/17/22 09:00 11/18/22 08:25 Isosorbide [place] itrate Er 60 Mg Ta blet PO 60 mg DAILY IMMANUEL Administration Levothyroxine Sodi um 88 mcg 11/08/22 05:00 11/18/22 05:59 Levothyroxine 88 Mcg Tablet PO 88 mcg DAILY@05 IMMANUEL Administration Lidocaine 1 patch 11/15/22 21:00 11/18/22 08:27 Lidocaine 5% Pat ch TOPICAL 1 patch [id number] IMMANUEL Administration Magnesium Hydroxid e 30 ml 11/11/22 16:56 11/11/22 17:08 Magnesium Hydrox mely 30 Ml Udc PO 30 ml DAILY PRN Administration CONSTIPATION Metoprolol Tartrat e 25 mg 11/16/22 21:00 11/18/22 08:26 Metoprolol Tartr ate 25 Mg Tablet PO 25 mg BID@0900,2100 IMMANUEL Administration Sodium Chloride 1 gm 11/07/22 21:00 11/18/22 16:08 Sodium Chloride 1 Gm Tablet PO 1 gm TID IMMANUEL Administration Tamsulosin HCl 0.4 mg 11/14/22 09:00 11/18/22 08:25 Tamsulosin 0.4 M g Capsule PO 0.4 mg DAILY IMMANUEL Administration Vitals/I&O/Wt Last Vital Signs Temp 98.1 F 11/18/22 12:00 Pulse 53 L 11/18/22 14:00 Resp 13 11/18/22 12:00 BP 133/43 11/18/22 12:00 Pulse Ox 96 11/18/22 12:00 O2 Del Method Nasal Cannula 11/18/22 07:45 O2 Flow Rate 4 11/18/22 07:45 FiO2 30 11/18/22 12:00 11/18/22 11/18/22 11/18/22 06:59 14:59 22:59 Intake Total 100 / 1300 Output Total 50 / 100 Balance 50 / 1200 Weight last 48 hrs Weight 70.76 kg Weight 68.039 kg Physical Exam Const: COMMON NORMALS: patient oriented x3 HENMT: COMMON NORMALS: normocephalic and atraumatic HEAD & SCALP: normocephalic and atraumatic Resp: COMMON NORMALS: clear to auscultation bilaterally EFFORT & INSPECTION: Yes symmetric chest movement AUSCULTATION: clear to auscultation bilaterally OTHER: Diminished air entry bilaterally, b/l crackles present in both the lungs schaeffer at bases. Cardio: COMMON NORMALS: regular rate, regular rhythm, S1 normal heart sound present, S2 normal heart sound present, No gallops present (Cardio), No murmurs present (Cardio), No rub (Cardio) and Peripheral pulses 2+ throughout RATE: regular rate RHYTHM: regular rhythm HEART SOUNDS: S1 normal heart sound present and S2 normal heart sound present PERIPHERAL PULSES: Peripheral pulses 2+ throughout GI: COMMON NORMALS: Normal to inspection, nondistended, normoactive bowel sounds present, Soft to palpation, non-tender, No hepatosplenomegaly present and no masses AUSCULTATION: Yes normoactive bowel sounds PALPATION: Yes Soft to palpation and Yes No hepatosplenomegaly present RECTAL EXAM: deferred Extremity: COMMON NORMALS: no clubbing, cyanosis or edema and no pedal edema OTHER: 3+ Pitting edema present in both the lungs schaeffer. Neuro: COMMON NORMALS: patient oriented x3 Urinary Catheter Management: Lim: Cath Placed During This Visit: yes Reason for Continuing Indwelling Catheter: Accurate Measurement of Urinary Output in Critically Ill Patients Urinary Catheter Date of Insertion: 11/07/22 Urinary Catheter Time of Insertion: 19:00 Data 11/18/22 02:30 11/18/22 02:30 A&P Assessment and plan (1) Cardiogenic shock: Initially during hospital stay patient was in cardiogenic shock: Currently it has resolved: Maintaining good perfusion, has no JVD, extremities are, warm, not on any inotropic support.She is off Levophed. Cardiogenic shock was attributed to NSTEMI. (2) Atrial fibrillation with RVR: Has converted to sinus rhythm. Patient was on amiodarone drip has been transitioned to p.o. amiodarone 400 twice daily, will complete 10 g loading dose protocol, thereafter she will continue on 200 mg p.o. daily. Currently on therapeutic anticoagulation with Lovenox (3) NSTEMI (non-ST elevated myocardial infarction): Echocardiogram repeated showed an EF of 28% with LV cavity, moderate LA size and mild RA size increased, mild MR. S/p PCI to left main Continue with aspirin, Plavix, statin. Imdur and beta-candice has been resumed as the blood pressure is significantly improved.. (4) Left main coronary artery disease: (5) Respiratory failure with hypoxia and hypercapnia: Resolved. Patient back to baseline oxygen supplementation. D-dimer elevated 3.4. After age-related modification within normal limits. CT chest results appreciated. Concerns for bilateral pleural effusion with possible atelectasis and mild pneumonia. Respiratory viral panel negative. Sputum culture awaited. MRSA recently negative. Given critically illness for now start patient on IV Zosyn empirically. We will try to finish a 5-day course. Continue with DuoNebs every 6 hour, budesonide twice daily. Oxygen supplementation keeping saturation over 90%. (6) Heart failure: Decompensated heart failure with reduced ejection fraction Has been on Lasix Monitor intake output charting Daily weight Monitor electrolytes, keep potassium greater than 4, magnesium greater than 2 Telemetry monitoring (7) Chronic hyponatremia: Acute on chronic hyponatremia. Baseline sodium seems to be around 1 28-1 30. Down to 123. Most likely in setting of IV fluids she was getting for possible cardiac catheterization today. Repeat BMP in evening. Continue with oral salt 3 times daily. Patient slightly lethargic but no other symptoms of hyponatremia. (8) Hypertension: Goal blood pressure with mean over 65-70. Currently cardiogenic shock. Patient states usually blood pressures have been running around 170 for many years. Reluctant to increase antihypertensives too much. States on increasing medication she becomes very sleepy and tired. Multiple antihypertensives at home. Takes clonidine 0.1 twice daily, felodipine 10 mg oral every afternoon, hydralazine 25 mg 3 times daily, Imdur 60 mg oral daily, valsartan 160 mg twice daily. Hold off on antihypertensives as above. Qualifiers: Hypertension type: essential hypertension Qualified Code(s): I10 - Essential (primary) hypertension (9) Chronic renal insufficiency: DAXA on CKD: Likely secondary to JEANNINE, CRS: Baseline serum creatinine appears to be around 0.8-1 Current serum creatinine: 1.9 Monitor intake output charting Avoid nephrotoxic's Was On IV albumin Currently on temporary hemodialysis.First session received on 11/18. Nephrology on board (10) Hyperkalemia: Resolved Hold off on home dose potassium. Continue to monitor daily. (11) Coronary artery disease: Qualifiers: Associated angina: without angina Coronary Disease-Associated Artery/Lesion type: [place] artery [place] vs. transplanted heart: [place] heart Qualified Code(s): I25.10 - Atherosclerotic heart disease of [place] coronary artery without angina pectoris (12) Goals of care, counseling/discussion: Plan DVT ppx: Full dose Lovenox will suffice as DVT prophylaxis. CODE STATUS full code Attestations Medical Necessity Statement*: Needs to be in hospital for hemodialysis. Coding Level of Care Code Acute Code for Chg Fwd Diagnoses Cardiogenic shock R57.0 Atrial fibrillation with RVR I48.91 NSTEMI (non-ST elevated myocardial infarction) I21.4 Left main coronary artery disease I25.10 Respiratory failure with hypoxia and hypercapnia J96.91; J96.92 Heart failure I50.9 Chronic hyponatremia E87.1 Hypertension I10 Hypertension type: essential hypertension Chronic renal insufficiency N18.9 Hyperkalemia E87.5 Coronary artery disease I25.10 Associated angina: without angina Coronary Disease-Associated Artery/Lesion type: [place] artery [place] vs. transplanted heart: [place] heart Goals of care, counseling/discussion Z71.89
[2022-11-18] MEDS: morphine 4 mg/mL SDV 1 mL 2 MG IVP (17:37)
--- NOTE | 2022-11-18 18:38 | PC.NURSE ---
Shift SUmmary: Patient had a right groin dialysis catheter placed by Dr brand. Received dialysis today and had 1500mL removed, patient tolerated dialysis well and had no blood pressure drop. 2 bowel movements, 75mL or urine output. Bladder scan showed no retention. At begginig of shift patient was very lethargic and would often fall asleep while talking and repeatedly asking same questions, after dialysis patient is more alert.
[2022-11-18] MEDS: atorvastatin 40 mg Tablet PO (20:52)
[2022-11-18] MEDS: ALPRAZolam 0.5 mg Tablet PO (21:18)
[2022-11-19] VITALS (28 sets, daily range): BP systolic 145–191; BP diastolic 47–70; PULSE 54–79; RESP 11–22; TEMP 36.6–37.3; O2SAT 92–100; BMI 30.6
[2022-11-19] MEDS: morphine 4 mg/mL SDV 1 mL 2 MG IVP ×2 (01:44→18:10)
[2022-11-19 05:14] LABS: Basophils % 0.1 %; Eosinophils % 0.1 %; Hemoglobin 7.4 g/dL (11.5-15.3); Lymphocytes # 0.4 10^3/uL (0.8-4.8); Lymphocytes % 4.7 %; Mean Corpuscular HGB Conc 29.6 g/dL (30.0-36.0); Mean Corpuscular Hemoglobin 30.3 pg (28.0-34.0); Mean Corpuscular Volume 102.5 fl (81-99); Mean Platelet Volume 10.2 fL (7.4-10.4); Monocytes # 0.5 10^3/uL (0.2-0.9); Monocytes % 6.4 %; Neutrophils # 7.14 10^3/uL (1.8-7.7); Neutrophils % 87.6 %; Nucleated Red Blood Cells % 0 %; Platelet Count 397 10^3/cmm (130-400); Red Blood Count 2.44 10^6/uL (4.1-5.3); Red Cell Distribution Width 15.2 % (12.1-15.1); White Blood Count 8.2 10^3/uL (4.0-10.0)
[2022-11-19 05:36] LABS: Anion Gap 16.7 (5-19); Blood Urea Nitrogen 28 mg/dL (8-23); Calcium 7.9 mg/dL (8.5-10.5); Carbon Dioxide 24 mmol/L (22-29); Chloride 95 mmol/L (98-107); Glucose 94 mg/dL (65-115); Osmolality Calculated 279 mOsm/kg (285-295); Potassium 3.7 mmol/L (3.5-5.1); Sodium 132 mmol/L (136-145)
--- NOTE | 2022-11-19 05:49 | PM.PN ---
Subjective Subjective: reports she feels better today Vitals/I&O/Wt Last Vital Signs Temp 98.3 F 11/19/22 00:00 Pulse 72 11/19/22 01:00 Resp 18 11/19/22 01:44 BP 154/54 11/19/22 01:00 Pulse Ox 96 11/19/22 01:44 O2 Del Method High Flow Nasal Cannula 11/18/22 20:00 O2 Flow Rate 3 11/18/22 20:00 FiO2 30 11/18/22 16:00 11/18/22 11/18/22 11/19/22 14:59 22:59 06:59 Intake Total 450 / 450 Output Total 125 / 125 Balance 325 / 325 Weight last 48 hrs Weight 70.76 kg Weight 68.039 kg Physical Exam Const: COMMON NORMALS: no acute distress Extremity: GENERAL: Yes edema (pedal) Urinary Catheter Management: Lim: Cath Placed During This Visit: yes Reason for Continuing Indwelling Catheter: Accurate Measurement of Urinary Output in Critically Ill Patients Urinary Catheter Date of Insertion: 11/07/22 Urinary Catheter Time of Insertion: 19:00 Data 11/19/22 05:00 11/19/22 07:50 Other Labs: calcium 7.9, albumin 3.4 phos 3.7, Mg 2.9 TSAT 13.8%, SF 317 Other data: seen via telemedicine with assistance of RN at bedside A&P Assessment and plan (1) Acute kidney injury: Plan 1. Acute oligoanuric renal failure due to cardiogenic shock, contrast. s/p NSTEMI, stent. Minimal urine output 2. Hyponatremia, improved. discontinue NaCl tablets 3. Anemia, Hb stable, iron deficient, rx IV iron load Recommend: HD today 3.5h 2000 ml UF. Evaluate dialysis needs over weekend. Place tunneled IJ HD catheter early next week if renal function not improved Attestations Medical Necessity Statement*: see above Time Spent in Patient Care: 16 - 35 minutes Coding Level of Care Code Acute Code for g Fwd Diagnoses Acute kidney injury N17.9
[2022-11-19] MEDS: levothyroxine 88 mcg Tablet PO (06:42)
[2022-11-19] MEDS: HYDROcodone-acetaminophen 10-325 mg Tablet 1 TAB PO (07:47)
[2022-11-19] MEDS: amiodarone 200 mg Tablet 400 MG PO (08:02)
[2022-11-19] MEDS: citalopram 20 mg Tablet 10 MG PO (08:02)
[2022-11-19] MEDS: aspirin 81 mg Chew Tablet PO (08:02)
[2022-11-19] MEDS: gabapentin 100 mg Capsule PO ×2 (08:02→18:11)
[2022-11-19] MEDS: isosorbide mononitrate ER 60 mg Tablet PO (08:02)
[2022-11-19] MEDS: lidocaine 5% Patch 1 PATCH TOPICAL (08:02)
[2022-11-19] MEDS: clopidogrel 75 mg Tablet PO (08:02)
[2022-11-19] MEDS: hyDRALAzine 25 mg Tablet PO ×3 (08:02→18:39)
[2022-11-19] MEDS: tamsulosin 0.4 mg Capsule PO (08:02)
[2022-11-19 08:22] LABS: Alanine Aminotransferase 22 U/L (0-33); Albumin Level 3.4 g/dL (3.5-5.2); Alkaline Phosphatase 157 U/L (35-105); Anion Gap 19.7 (5-19); Aspartate Amino Transferase 27 U/L (0-32); Blood Urea Nitrogen 33 mg/dL (8-23); Calcium 7.9 mg/dL (8.5-10.5); Carbon Dioxide 24 mmol/L (22-29); Chloride 92 mmol/L (98-107); Ferritin 317 ng/mL (15-150); Globulin 2.9 g/dL (1.3-4.6); Glucose 89 mg/dL (65-115); Iron 17 ug/dL (37-145); Magnesium 2.9 mg/dL (1.7-2.3); Osmolality Calculated 281 mOsm/kg (285-295); Percent Saturation 13.8 % (20-50); Phosphorus 3.7 mg/dL (2.5-4.5); Potassium 3.7 mmol/L (3.5-5.1); Sodium 132 mmol/L (136-145); Total Bilirubin 0.3 mg/dL (0.15-1.2); Total Iron Binding Capacity 123 mcg/dl; Total Protein 6.3 g/dL (6.6-8.7); Unsaturated Iron Binding 106 ug/dL (112-347)
--- NOTE | 2022-11-19 09:25 | PM.PN ---
Vitals/I&O/Wt Last Vital Signs Temp 97.9 F 11/19/22 04:00 Pulse 71 11/19/22 08:00 Resp 16 11/19/22 08:00 BP 150/53 11/19/22 06:00 Pulse Ox 98 11/19/22 08:00 O2 Del Method Nasal Cannula 11/19/22 08:00 O2 Flow Rate 3 11/19/22 08:00 FiO2 30 11/18/22 16:00 11/18/22 11/19/22 11/19/22 22:59 06:59 14:59 Intake Total 450 / 450 50 / 500 Output Total 125 / 125 50 / 175 Balance 325 / 325 0 / 325 Weight last 48 hrs Weight 162 lb Weight 156 lb Physical Exam Const: COMMON NORMALS: no acute distress, patient oriented x3 and alert GENERAL APPEARANCE: cooperative, comfortable, well kempt and well hydrated HENMT: COMMON NORMALS: hearing grossly normal bilaterally, external ears normal and moist oral mucous membranes FACE & SINUS: normal facial exam EXTERNAL EAR: Yes external ears normal Eye: COMMON NORMALS: EOMs intact bilaterally and no scleral icterus GENERAL EYE: appearance normal, both eyes and all related structures ALIGNMENT: Yes alignment normal Neck/C-Spine: COMMON NORMALS: supple and no JVD GENERAL: Yes normal visual inspection CAROTIDS: Yes normal carotid upstroke Chest: COMMONS NORMALS: normal inspection of the chest and normal palpation of entire chest wall CHEST: Yes Symmetrical chest wall rise and No tenderness Resp: COMMON NORMALS: clear to auscultation bilaterally AUSCULTATION: clear to auscultation bilaterally, no crackles, no rales, no rhonchi and no wheezes Cardio: COMMON NORMALS: no JVD, regular rate, regular rhythm, S1 normal heart sound present, S2 normal heart sound present and Peripheral pulses 2+ throughout PALPATION: normal PMI RATE: regular rate RHYTHM: regular rhythm HEART SOUNDS: S1 normal heart sound present, S2 normal heart sound present, no gallops and no murmurs BRUITS: no carotid bruits PERIPHERAL PULSES: Peripheral pulses 2+ throughout, radial pulses present, posterior tibial pulses present and dorsalis pedis present GI: COMMON NORMALS: Soft to palpation AUSCULTATION: Yes normoactive bowel sounds PALPATION: Yes Soft to palpation, No Tenderness to palpation present (GI), No Guarding due to palpation present (GI) and No Rigid due to palpation PERCUSSION: tympanic to percussion Extremity: GENERAL: No cyanosis, Yes edema (3+ edema) and No pallor Neuro: COMMON NORMALS: patient oriented x3 and no focal motor deficits SENSORIUM/ORIENTATION: Yes alert Psych: COMMON NORMALS: Normal thought process present and speech normal APPEARANCE: Yes well kempt SPEECH: Yes normal speech MOOD & AFFECT: Yes euthymic mood THOUGHT PROCESS: Normal thought process present THOUGHT CONTENT: Yes Normal thought content present Urinary Catheter Management: Lim: Cath Placed During This Visit: yes Reason for Continuing Indwelling Catheter: Accurate Measurement of Urinary Output in Critically Ill Patients Urinary Catheter Date of Insertion: 11/07/22 Urinary Catheter Time of Insertion: 19:00 Data 11/19/22 05:00 11/19/22 07:50 A&P Assessment and plan (1) NSTEMI (non-ST elevated myocardial infarction): Patient is status post successful revascularization of left main artery with EDUARDO x2. Continue aspirin, Plavix, statin and metoprolol and statin. continue metoprolol 12.5mg BID - s/p hemodialysis yesterday with removal of 1500 cc; plan for dilaysis again today -No recurrent chest pain. (2) Coronary artery disease: Qualifiers: Associated angina: without angina Coronary Disease-Associated Artery/Lesion type: [place] artery [place] vs. transplanted heart: [place] heart Qualified Code(s): I25.10 - Atherosclerotic heart disease of [place] coronary artery without angina pectoris (3) Dyslipidemia (high LDL; low HDL): (4) Chronic hyponatremia: Plan Paroxysmal Atrial fibrillation: remains in sinus; on amiodarone. lovenox held d/t drop in Hb CHF: Systolic CHF DAXA 2/2 JEANNINE: On hemodialysis HTN: started on hydralazine Chronic anemia Constipation Hypothyroidism Attestations Medical Necessity Statement*: needs hospital stay for ARF, CHF Coding Level of Care Code 26387 Diagnoses NSTEMI (non-ST elevated myocardial infarction) I21.4 Coronary artery disease I25.10 Associated angina: without angina Coronary Disease-Associated Artery/Lesion type: [place] artery [place] vs. transplanted heart: [place] heart Dyslipidemia (high LDL; low HDL) E78.5 Chronic hyponatremia E87.1
--- NOTE | 2022-11-19 09:56 | PC.SOCIAL ---
IMM update IMM updated with patient and family at bedside. Copy Pg 2 provided. Verbalized an understanding. Initialled, dated, timed, and placed in chart.
--- NOTE | 2022-11-19 10:20 | P.PN_ITS ---
Subjective Subjective: Patient was seen and examined this morning, continued to have poor urine output, received hemodialysis yesterday, she is scheduled for hemodialysis today, hemoglobin is hanging around 7.4, she is also receiving IV iron . Given the fact that her heart rate is now slightly lower side, dose of metoprolol has been cut down to 12.5 twice daily, amiodarone dose has also been changed to 400 mg p.o. daily. Medications: Reviewed: Yes Medication Review Details: Generic Name Dose Route Start Last Admin Trade Name Freq PRN Reason Stop Dose Admin Hydrocodone Bitart /Acetaminophen 1 tab 11/16/22 00:21 11/19/22 07:47 Hydrocodone-Acet aminophen 10-325 M g Tablet PO 1 tab Q4H PRN Administration MODERATE PAIN Alprazolam 0.5 mg 11/17/22 10:38 11/18/22 21:18 Alprazolam 0.5 M g Tablet PO 0.5 mg TID PRN Administration ANXIETY Amiodarone HCl 400 mg 11/19/22 09:00 11/19/22 08:02 Amiodarone 200 M g Tablet PO 400 mg DAILY IMMANUEL Administration Aspirin 81 mg 11/11/22 09:00 11/19/22 08:02 Aspirin 81 Mg Ch ew Tablet PO 81 mg DAILY IMMANUEL Administration Atorvastatin Calci um 40 mg 11/10/22 21:00 11/18/22 20:52 Atorvastatin 40 Mg Tablet PO 40 mg BEDTIME IMMANUEL Administration Bisacodyl 10 mg 11/07/22 17:16 11/11/22 13:56 Bisacodyl 5 Mg T ablet PO 10 mg DAILY PRN Administration Constipation Budesonide 0.5 mg 11/10/22 20:00 11/19/22 08:52 Budesonide 0.5 M g/2 Ml Neb INHALATION Not Given BID.RESPIRATORY S CH Citalopram Hydrobr omide 10 mg 11/13/22 09:00 11/19/22 08:02 Citalopram 20 Mg Tablet PO 10 mg DAILY IMMANUEL Administration Clopidogrel Bisulf ate 75 mg 11/11/22 09:00 11/19/22 08:02 Clopidogrel 75 M g Tablet PO 75 mg DAILY IMMANUEL Administration Enoxaparin Sodium 70 mg 11/16/22 21:00 11/17/22 20:06 Enoxaparin 80 Mg /0.8 Ml Syringe SUBCUT 70 mg Q24H IMMANUEL Administration Gabapentin 100 mg 11/07/22 18:00 11/19/22 08:02 Gabapentin 100 M g Capsule PO 100 mg BID IMMANUEL Administration Hydralazine HCl 25 mg 11/16/22 21:00 11/19/22 08:02 Hydralazine 25 M g Tablet PO 25 mg TID IMMANUEL Administration Isosorbide Mononit rate 60 mg 11/17/22 09:00 11/19/22 08:02 Isosorbide Cornelius itrate Er 60 Mg Ta blet PO 60 mg DAILY IMMANUEL Administration Levothyroxine Sodi um 88 mcg 11/08/22 05:00 11/19/22 06:42 Levothyroxine 88 Mcg Tablet PO 88 mcg DAILY@05 [facility] Administration Lidocaine 1 patch 11/15/22 21:00 11/19/22 08:02 Lidocaine 5% Pat ch TOPICAL 1 patch [id number] [facility] Administration Magnesium Hydroxid e 30 ml 11/11/22 16:56 11/11/22 17:08 Magnesium Hydrox mely 30 Ml Udc PO 30 ml DAILY PRN Administration CONSTIPATION Metoprolol Tartrat e 25 mg 11/16/22 21:00 11/18/22 08:26 Metoprolol Tartr ate 25 Mg Tablet PO 25 mg BID@0900,2100 [facility] Administration Morphine Sulfate 2 mg 11/18/22 17:25 11/19/22 01:44 Morphine 4 Mg/Ml Sdv 1 Ml IVP 2 mg Q8H PRN Administration SEVERE PAIN Tamsulosin HCl 0.4 mg 11/14/22 09:00 11/19/22 08:02 Tamsulosin 0.4 M g Capsule PO 0.4 mg DAILY IMMANUEL Administration Vitals/I&O/Wt Last Vital Signs Temp 97.9 F 11/19/22 04:00 Pulse 71 11/19/22 08:00 Resp 16 11/19/22 08:00 BP 150/53 11/19/22 06:00 Pulse Ox 98 11/19/22 08:00 O2 Del Method Nasal Cannula 11/19/22 08:00 O2 Flow Rate 3 11/19/22 08:00 FiO2 30 11/18/22 16:00 11/18/22 11/19/22 11/19/22 22:59 06:59 14:59 Intake Total 450 / 450 50 / 500 Output Total 125 / 125 50 / 175 Balance 325 / 325 0 / 325 Weight last 48 hrs Weight 73.482 kg Weight 70.76 kg Physical Exam Const: COMMON NORMALS: patient oriented x3 HENMT: COMMON NORMALS: normocephalic and atraumatic HEAD & SCALP: normocephalic and atraumatic Resp: OTHER: Diminished air entry bilaterally, b/l crackles present in both the lungs schaeffer at bases. Cardio: COMMON NORMALS: regular rate, regular rhythm, S1 normal heart sound present, S2 normal heart sound present, No gallops present (Cardio), No murmurs present (Cardio), No rub (Cardio) and Peripheral pulses 2+ throughout RATE: regular rate RHYTHM: regular rhythm HEART SOUNDS: S1 normal heart sound present and S2 normal heart sound present PERIPHERAL PULSES: Peripheral pulses 2+ throughout GI: COMMON NORMALS: Normal to inspection, nondistended, normoactive bowel sounds present, Soft to palpation, non-tender, No hepatosplenomegaly present and no masses AUSCULTATION: Yes normoactive bowel sounds PALPATION: Yes Soft to palpation and Yes No hepatosplenomegaly present RECTAL EXAM: deferred Extremity: COMMON NORMALS: no clubbing, cyanosis or edema and no pedal edema OTHER: 3+ Pitting edema present in both the lungs schaeffer. Neuro: COMMON NORMALS: patient oriented x3 Urinary Catheter Management: Lim: Cath Placed During This Visit: yes Reason for Continuing Indwelling Catheter: Accurate Measurement of Urinary Output in Critically Ill Patients Urinary Catheter Date of Insertion: 11/07/22 Urinary Catheter Time of Insertion: 19:00 Data 11/19/22 05:00 11/19/22 07:50 A&P Assessment and plan (1) Cardiogenic shock: Initially during hospital stay patient was in cardiogenic shock: Currently it ramachandran s resolved: Maintaining good perfusion, has no JVD, extremities are, warm, not on any inotropic support.She is off Levophed. Cardiogenic shock was attributed to NSTEMI. (2) Atrial fibrillation with RVR: Has converted to sinus rhythm. Patient was on amiodarone drip has been transitioned to p.o. amiodarone 400 twice daily, will complete 10 g loading dose protocol, thereafter she will continue on 200 mg p.o. daily. Patient was on therapeutic anticoagulation with Lovenox, currently on hold, due to high risk of bleeding. Long-term therapeutic anticoagulation, possibly could be avoided, given her age and risk of bleeding, and she also being on aspirin and Plavix for now. (3) NSTEMI (non-ST elevated myocardial infarction): Echocardiogram repeated showed an EF of 28% with LV cavity, moderate LA size and mild RA size increased, mild MR. S/p PCI to left main Continue with aspirin, Plavix, statin. Imdur and beta-candice has been resumed as the blood pressure is significantly improved.. (4) Left main coronary artery disease: (5) Respiratory failure with hypoxia and hypercapnia: Resolved. Patient back to baseline oxygen supplementation. D-dimer elevated 3.4. After age-related modification within normal limits. CT chest results appreciated. Concerns for bilateral pleural effusion with possible atelectasis and mild pneumonia. Respiratory viral panel negative. Sputum culture awaited. MRSA recently negative. Given critically illness for now start patient on IV Zosyn empirically. We will try to finish a 5-day course. Continue with DuoNebs every 6 hour, budesonide twice daily. Oxygen supplementation keeping saturation over 90%. (6) Heart failure: Decompensated heart failure with reduced ejection fraction Has been on Lasix Monitor intake output charting Daily weight Monitor electrolytes, keep potassium greater than 4, magnesium greater than 2 Telemetry monitoring (7) Chronic hyponatremia: Acute on chronic hyponatremia. Baseline sodium seems to be around 1 28-1 30. Down to 123. Most likely in setting of IV fluids she was getting for possible cardiac catheterization today. Repeat BMP in evening. Continue with oral salt 3 times daily. Patient slightly lethargic but no other symptoms of hyponatremia. (8) Hypertension: Goal blood pressure with mean over 65-70. Currently cardiogenic shock. Patient states usually blood pressures have been running around 170 for many years. Reluctant to increase antihypertensives too much. States on increasing medication she becomes very sleepy and tired. Multiple antihypertensives at home. Takes clonidine 0.1 twice daily, felodipine 10 mg oral every afternoon, hydralazine 25 mg 3 times daily, Imdur 60 mg oral daily, valsartan 160 mg twice daily. Hold off on antihypertensives as above. Qualifiers: Hypertension type: essential hypertension Qualified Code(s): I10 - Essential (primary) hypertension (9) Chronic renal insufficiency: DAXA on CKD: Likely secondary to JEANNINE, CRS: Baseline serum creatinine appears to be around 0.8-1 Monitor BMP. Monitor intake output charting Avoid nephrotoxic's Was On IV albumin Currently on temporary hemodialysis.First session received on 11/18. Nephrology on board (10) Hyperkalemia: Resolved Hold off on home dose potassium. Continue to monitor daily. (11) Coronary artery disease: Qualifiers: Associated angina: without angina Coronary Disease-Associated Mechelle ry/Lesion type: algaaciq artery Ramona vs. transplanted heart: algaaciq heart Qualified Code(s): I25.10 - Atherosclerotic heart disease of algaaciq coronary artery without angina pectoris (12) Goals of care, counseling/discussion: (13) Anemia: Monitor H&H Transfuse to maintain hemoglobin greater than 7 Currently on IV iron. Plan DVT ppx: On subcu heparin CODE STATUS full code Attestations Medical Necessity Statement*: Needs to be in hospital for hemodialysis. Coding Level of Care Code Acute Code for Chg Fwd Diagnoses Cardiogenic shock R57.0 Atrial fibrillation with RVR I48.91 NSTEMI (non-ST elevated myocardial infarction) I21.4 Left main coronary artery disease I25.10 Respiratory failure with hypoxia and hypercapnia J96.91; J96.92 Heart failure I50.9 Chronic hyponatremia E87.1 Hypertension I10 Hypertension type: essential hypertension Chronic renal insufficiency N18.9 Hyperkalemia E87.5 Coronary artery disease I25.10 Associated angina: without angina Coronary Disease-Associated Artery/Lesion type: algaaciq artery Ramona vs. transplanted heart: algaaciq heart Goals of care, counseling/discussion Z71.89 Anemia D64.9
--- NOTE | 2022-11-19 10:57 | PC.NURSE ---
Patient requested morphine for back pain. NUrse explained to the patient that she has been very lethargic, difficulty staying awake, and is therefore hesitant to give an opiod. ALso explained that she is developing muscle weakness and giving opiods too frequently will cause more lethargy and only lead to more weakness. Nurse suggested trying to reposition for comfort before using morphine, but that morphine is available if needed as her vitals signs are not currently a contraindication. Patient agreed to trying reposition first. NUrse repositioned patient and returned 10 minutes later, patient has fallen asleep, morphine not administered.
--- NOTE | 2022-11-19 11:10 | PC.HD ---
Addendum entered by Juan Eric RN 11/20/22 09:14: Initial dialysis treatment 11/18/22 Original Note: Initial dialysis treatment - femoral cath draws and flushes well, bloody drainage noted under tegaderm dressing with 4x4s saturated with blood, however site only oozing small amount of blood when dressing changed. Pt developed pain during treatment unrelated to treatment (chronic back pain, medicated 30 minutes prior to tx end) but tolerated treatment well.
--- NOTE | 2022-11-19 11:11 | PC.NURSE ---
Patient is losing motivation, becoming depressed, and sleeping most of the day. Nurse explained to the patient that though these feeling are understandable and that her kidney injury contributes to the lethargy, there are still concerns for muscle weakness and developing ICU delerium. Nurse suggested that the family bring in books and knitting supplies as they state those are activities she enjoys at home and they will keep her mentally or physically engaged, but patient refuses. Nurse explained the importance of keeping lights on and curtains open during the day to maintain a sleep/wake cycle. Family states they will bring in photo albums when visiting to try and further engage patient.
[2022-11-19] MEDS: metoprolol tartrate 25 mg Tablet PO (11:23)
[2022-11-19 12:42] LABS: Glucose Point of Care 107 mg/dL (70-110)
[2022-11-19] MEDS: iron sucrose 200 MG in sodium chloride 0.9% (100 ml) 100 ML 220 MG IV (14:26)
[2022-11-19] MEDS: heparin, porcine 1,000 unit/mL INJ 10 mL 1000 UNIT IV (15:26)
[2022-11-19] MEDS: heparin 5,000 unit/mL INJ 1 mL 5000 UNIT SUBCUT (18:39)
--- NOTE | 2022-11-19 18:42 | PC.NURSE ---
Pt's BP running 180-190's. After pain medication was given, her BP didn't really improve. Messaged Dr. Bullock and order to give 2100 dose of hydralizine now. New orders noted and implemented.
[2022-11-19] MEDS: ALPRAZolam 0.5 mg Tablet PO (19:32)
[2022-11-19] MEDS: metoprolol tartrate 25 mg Tablet 12.5 MG PO (20:00)
[2022-11-19] MEDS: atorvastatin 40 mg Tablet PO (20:01)
[2022-11-20] VITALS (29 sets, daily range): BP systolic 128–167; BP diastolic 42–134; PULSE 50–71; RESP 2–34; TEMP 36.6–37.1; O2SAT 92–100; BMI 31.0
[2022-11-20] MEDS: morphine 4 mg/mL SDV 1 mL 2 MG IVP (03:48)
[2022-11-20 03:50] LABS: Basophils % 0.1 %; Eosinophils % 0.1 %; Hematocrit 26.3 % (37.0-47.0); Hemoglobin 7.9 g/dL (11.5-15.3); Lymphocytes # 0.6 10^3/uL (0.8-4.8); Lymphocytes % 6.4 %; Mean Corpuscular Hemoglobin 30.5 pg (28.0-34.0); Mean Corpuscular Volume 101.5 fl (81-99); Monocytes # 0.8 10^3/uL (0.2-0.9); Monocytes % 8.4 %; Neutrophils # 8.17 10^3/uL (1.8-7.7); Neutrophils % 83.4 %; Nucleated Red Blood Cells % 0 %; Platelet Count 470 10^3/cmm (130-400); Red Blood Count 2.59 10^6/uL (4.1-5.3); Red Cell Distribution Width 15.2 % (12.1-15.1); White Blood Count 9.8 10^3/uL (4.0-10.0)
[2022-11-20 04:07] LABS: Anion Gap 14.6 (5-19); Blood Urea Nitrogen 15 mg/dL (8-23); Calcium 8.3 mg/dL (8.5-10.5); Carbon Dioxide 26 mmol/L (22-29); Chloride 96 mmol/L (98-107); Glucose 88 mg/dL (65-115); Osmolality Calculated 276 mOsm/kg (285-295); Potassium 3.6 mmol/L (3.5-5.1); Sodium 133 mmol/L (136-145)
[2022-11-20] MEDS: levothyroxine 88 mcg Tablet PO (05:17)
--- NOTE | 2022-11-20 06:16 | P.PN_ITS ---
Subjective Subjective: no new issues family at bedside Vitals/I&O/Wt Last Vital Signs Temp 97.8 F 11/20/22 04:00 Pulse 70 11/20/22 05:36 Resp 16 11/20/22 05:00 BP 163/134 11/20/22 05:00 Pulse Ox 95 11/20/22 04:00 O2 Del Method High Flow Nasal Cannula 11/19/22 20:00 O2 Flow Rate 3 11/19/22 20:00 FiO2 30 11/18/22 16:00 11/19/22 11/19/22 11/20/22 14:59 22:59 06:59 Intake Total 110 / 110 550 / 660 200 / 860 Output Total 100 / 125 15 / 140 Balance 85 / 85 450 / 535 185 / 720 Weight last 48 hrs Weight 74.531 kg Weight 73.482 kg Weight 71.7 kg Physical Exam Const: COMMON NORMALS: no acute distress Urinary Catheter Management: Lim: Cath Placed During This Visit: yes Reason for Continuing Indwelling Catheter: Accurate Measurement of Urinary Output in Critically Ill Patients Urinary Catheter Date of Insertion: 11/07/22 Urinary Catheter Time of Insertion: 19:00 Data 11/20/22 03:35 11/20/22 03:35 Other data: seen via telemedicine with assistance of RN at bedside A&P Assessment and plan (1) Acute kidney injury: Plan 1. Acute oligoanuric renal failure due to cardiogenic shock, contrast. s/p NSTEMI, stent. Minimal urine output. received HD 11/18 and 11/19 2. Hyponatremia, improved. 3. Anemia, Hb stable, iron deficient, rx IV iron load Recommend: resume IV lasix [address] IJ HD catheter early next week if renal function not improved Attestations Medical Necessity Statement*: see above Time Spent in Patient Care: 16 - 35 minutes Coding Level of Care Code Acute Code for [facility] Fwd Diagnoses Acute kidney injury N17.9
[2022-11-20] MEDS: heparin 5,000 unit/mL INJ 1 mL 5000 UNIT SUBCUT ×2 (06:28→18:29)
--- NOTE | 2022-11-20 07:27 | P.PN_ITS ---
Subjective Subjective: Patient appears weak and tired Family at bedside, discussed patient condition No chest pain reported At baseline oxygen level No fever chills reported Underwent dialysis yesterday Vitals/I&O/Wt Last Vital Signs Temp 97.8 F 11/20/22 04:00 Pulse 70 11/20/22 05:36 Resp 16 11/20/22 05:00 BP 163/134 11/20/22 05:00 Pulse Ox 95 11/20/22 04:00 O2 Del Method High Flow Nasal Cannula 11/19/22 20:00 O2 Flow Rate 3 11/19/22 20:00 FiO2 30 11/18/22 16:00 11/19/22 11/20/22 11/20/22 22:59 06:59 14:59 Intake Total 550 / 660 200 / 860 Output Total 100 / 125 15 / 140 Balance 450 / 535 185 / 720 Weight last 48 hrs Weight 164 lb 5 oz Weight 162 lb Weight 158 lb 1.143 oz Physical Exam Const: COMMON NORMALS: no acute distress GENERAL APPEARANCE: cooperative and comfortable HENMT: COMMON NORMALS: normocephalic, atraumatic and oropharynx normal HEAD & SCALP: normocephalic and atraumatic Chest: COMMONS NORMALS: normal inspection of the chest Resp: COMMON NORMALS: normal respiratory effort, No use of accessory muscles and clear to auscultation bilaterally AUSCULTATION: clear to auscultation bilaterally Cardio: COMMON NORMALS: S1 normal heart sound present, S2 normal heart sound present, No gallops present (Cardio) and No murmurs present (Cardio) JUGULAR VENOUS DISTENTION: no JVD HEART SOUNDS: S1 normal heart sound present and S2 normal heart sound present Extremity: COMMON NORMALS: normal to inspection and no pedal edema Urinary Catheter Management: Lim: Cath Placed During This Visit: yes Reason for Continuing Indwelling Catheter: Accurate Measurement of Urinary Output in Critically Ill Patients Urinary Catheter Date of Insertion: 11/07/22 Urinary Catheter Time of Insertion: 19:00 Data 11/20/22 03:35 11/20/22 03:35 A&P Assessment and plan (1) Left main coronary artery disease: (2) Uncontrolled hypertension: (3) Atrial fibrillation with RVR: Plan * NSTEMI (non-ST elevated myocardial infarction): -Patient is status post successful revascularization of left main artery with EDUARDO x2. -Continue aspirin and Plavix. -Monitor renal function, check CXR -Increase metoprolol 25mg daily today - Dialysis probably tomorrow at ICU service discretion -If BP elevated will increase hydralazine 50 po tid * Atrial fibrillation - Will consider prior to discharge after discussion with ICU service - Telemetry * Hypertension - Uncontrolled-Increase hydralazine 50 po tid * Dyslipidemia (high LDL; low HDL) - Continue statin high dose * Chronic hyponatremia: -Improved -Will monitor for now Attestations Medical Necessity Statement*: Kati Chris's hospital stay will require greater than 2 midnights for Coding Level of Care Code Acute Code for Chg Fwd Diagnoses Left main coronary artery disease I25.10 Uncontrolled hypertension I10 Atrial fibrillation with RVR I48.91
[2022-11-20] MEDS: HYDROcodone-acetaminophen 5-325 mg Tablet 1 TAB PO ×3 (08:05→17:33)
[2022-11-20] MEDS: isosorbide mononitrate ER 60 mg Tablet PO (08:06)
[2022-11-20] MEDS: tamsulosin 0.4 mg Capsule PO (08:08)
[2022-11-20] MEDS: hyDRALAzine 25 mg Tablet PO ×3 (08:08→20:30)
[2022-11-20] MEDS: aspirin 81 mg Chew Tablet PO (08:08)
[2022-11-20] MEDS: clopidogrel 75 mg Tablet PO (08:08)
[2022-11-20] MEDS: citalopram 20 mg Tablet 10 MG PO (08:08)
[2022-11-20] MEDS: metoprolol tartrate 25 mg Tablet 12.5 MG PO (08:08)
[2022-11-20] MEDS: lidocaine 5% Patch 1 PATCH TOPICAL (08:09)
[2022-11-20] MEDS: amiodarone 200 mg Tablet 400 MG PO (08:09)
[2022-11-20] MEDS: gabapentin 100 mg Capsule PO ×2 (08:09→17:07)
--- NOTE | 2022-11-20 08:25 | XRR_ITS ---
PROCEDURE INFORMATION: Exam: XR Chest Exam date and time: 11/20/2022 9:39 AM Age: 82 years old Clinical indication: Dyspnea; Additional info: Fluid volume overload TECHNIQUE: Imaging protocol: Radiologic exam of the chest. Views: 1 view. COMPARISON: CT chest con [id number] 11/11/2022 9:12 AM FINDINGS: Lungs: Bibasilar airspace opacities. Pleural spaces: Small bilateral pleural effusions appear increased in size compared to 11/11/2022. No pneumothorax. Heart/Mediastinum: Unremarkable. No cardiomegaly. Bones/joints: Unremarkable. XR/XR chest 1V portable [id number] IMPRESSION: 1. Small bilateral pleural effusions appear increased in size compared to 11/11/2022. 2. Bibasilar airspace opacities may reflect atelectasis versus pneumonia.
[2022-11-20] MEDS: budesonide 0.5 mg/2 mL Neb INHALATION ×2 (08:56→19:56)
[2022-11-20] MEDS: metoprolol tartrate 25 mg Tablet PO (09:49)
--- NOTE | 2022-11-20 13:22 | PC.NURSE ---
Nurse assisted patient to sitting up on the side of the bed. Patient did very little of the work to sit up and is very weak. With nurse providing stability patient sat on the bed for about 4 minutes. Due to muscle weakness and back pain she was unable to sit up straight and was having difficulty breathing so she was laid back down. Too weak to stand, moved to a chair via hayden lift. .
[2022-11-20] MEDS: iron sucrose 200 MG in sodium chloride 0.9% (100 ml) 100 ML 220 MG IV (15:43)
--- NOTE | 2022-11-20 16:03 | P.PN_ITS ---
Subjective Subjective: Patient was seen and examined this morning, continued to have poor urine output, though currently she is saturating well on baseline oxygen, current plan is to give her Lasix today, and monitor without dialysis. Patient was dialyzed yesterday. Medications: Reviewed: Yes Medication Review Details: Generic Name Dose Route Start Last Admin Trade Name Freq PRN Reason Stop Dose Admin Hydrocodone Bitart /Acetaminophen 1 tab 11/16/22 00:21 11/19/22 07:47 Hydrocodone-Acet aminophen 10-325 M g Tablet PO 1 tab Q4H PRN Administration MODERATE PAIN Alprazolam 0.5 mg 11/17/22 10:38 11/18/22 21:18 Alprazolam 0.5 M g Tablet PO 0.5 mg TID PRN Administration ANXIETY Amiodarone HCl 400 mg 11/19/22 09:00 11/19/22 08:02 Amiodarone 200 M g Tablet PO 400 mg DAILY IMMANUEL Administration Aspirin 81 mg 11/11/22 09:00 11/19/22 08:02 Aspirin 81 Mg Ch ew Tablet PO 81 mg DAILY IMMANUEL Administration Atorvastatin Calci um 40 mg 11/10/22 21:00 11/18/22 20:52 Atorvastatin 40 Mg Tablet PO 40 mg BEDTIME IMMANUEL Administration Bisacodyl 10 mg 11/07/22 17:16 11/11/22 13:56 Bisacodyl 5 Mg T ablet PO 10 mg DAILY PRN Administration Constipation Budesonide 0.5 mg 11/10/22 20:00 11/19/22 08:52 Budesonide 0.5 M g/2 Ml Neb INHALATION Not Given BID.RESPIRATORY S CH Citalopram Hydrobr omide 10 mg 11/13/22 09:00 11/19/22 08:02 Citalopram 20 Mg Tablet PO 10 mg DAILY IMMANUEL Administration Clopidogrel Bisulf ate 75 mg 11/11/22 09:00 11/19/22 08:02 Clopidogrel 75 M g Tablet PO 75 mg DAILY IMMANUEL Administration Enoxaparin Sodium 70 mg 11/16/22 21:00 11/17/22 20:06 Enoxaparin 80 Mg /0.8 Ml Syringe SUBCUT 70 mg Q24H IMMANUEL Administration Gabapentin 100 mg 11/07/22 18:00 11/19/22 08:02 Gabapentin 100 M g Capsule PO 100 mg BID IMMANUEL Administration Hydralazine HCl 25 mg 11/16/22 21:00 11/19/22 08:02 Hydralazine 25 M g Tablet PO 25 mg TID IMMANUEL Administration Isosorbide Mononit rate 60 mg 11/17/22 09:00 11/19/22 08:02 Isosorbide Wood itrate Er 60 Mg Ta blet PO 60 mg DAILY IMMANUEL Administration Levothyroxine Sodi um 88 mcg 11/08/22 05:00 11/19/22 06:42 Levothyroxine 88 Mcg Tablet PO 88 mcg DAILY@05 IMMANUEL Administration Lidocaine 1 patch 11/15/22 21:00 11/19/22 08:02 Lidocaine 5% Pat ch TOPICAL 1 patch [id number] [facility] Administration Magnesium Hydroxid e 30 ml 11/11/22 16:56 11/11/22 17:08 Magnesium Hydrox mely 30 Ml Udc PO 30 ml DAILY PRN Administration CONSTIPATION Metoprolol Tartrat e 25 mg 11/16/22 21:00 11/18/22 08:26 Metoprolol Tartr ate 25 Mg Tablet PO 25 mg BID@0900,2100 [facility] Administration Morphine Sulfate 2 mg 11/18/22 17:25 11/19/22 01:44 Morphine 4 Mg/Ml Sdv 1 Ml IVP 2 mg Q8H PRN Administration SEVERE PAIN Tamsulosin HCl 0.4 mg 11/14/22 09:00 11/19/22 08:02 Tamsulosin 0.4 M g Capsule PO 0.4 mg DAILY IMMANUEL Administration Vitals/I&O/Wt Last Vital Signs Temp 98.2 F 11/20/22 13:00 Pulse 59 L 11/20/22 14:00 Resp 16 11/20/22 13:00 BP 139/80 11/20/22 13:00 Pulse Ox 99 11/20/22 13:00 O2 Del Method Nasal Cannula 11/20/22 13:00 O2 Flow Rate 2 11/20/22 13:00 FiO2 30 11/18/22 16:00 11/20/22 11/20/22 11/20/22 06:59 14:59 22:59 Intake Total 200 / 1360 500 / 500 Output Total 15 / 2955 Balance 185 / -1595 500 / 500 Weight last 48 hrs Weight 74.531 kg Weight 71.1 kg Weight 73.482 kg Weight 71.7 kg Physical Exam Const: COMMON NORMALS: patient oriented x3 HENMT: COMMON NORMALS: normocephalic and atraumatic HEAD & SCALP: normocephalic and atraumatic Resp: COMMON NORMALS: clear to auscultation bilaterally EFFORT & INSPECTION: Yes symmetric chest movement AUSCULTATION: clear to auscultation bilaterally OTHER: Diminished air entry bilaterally, b/l Cardio: COMMON NORMALS: regular rate, regular rhythm, S1 normal heart sound present, S2 normal heart sound present, No gallops present (Cardio), No murmurs present (Cardio), No rub (Cardio) and Peripheral pulses 2+ throughout RATE: regular rate RHYTHM: regular rhythm HEART SOUNDS: S1 normal heart sound present and S2 normal heart sound present PERIPHERAL PULSES: Peripheral pulses 2+ throughout GI: COMMON NORMALS: Normal to inspection, nondistended, normoactive bowel sounds present, Soft to palpation, non-tender, No hepatosplenomegaly present and no masses AUSCULTATION: Yes normoactive bowel sounds PALPATION: Yes Soft to palpation and Yes No hepatosplenomegaly present RECTAL EXAM: deferred Extremity: COMMON NORMALS: no clubbing, cyanosis or edema and no pedal edema OTHER: 3+ Pitting edema present in both the lungs schaeffer. Neuro: COMMON NORMALS: patient oriented x3 Urinary Catheter Management: Lim: Cath Placed During This Visit: yes Reason for Continuing Indwelling Catheter: Accurate Measurement of Urinary Output in Critically Ill Patients Urinary Catheter Date of Insertion: 11/07/22 Urinary Catheter Time of Insertion: 19:00 Data 11/20/22 03:35 11/20/22 03:35 A&P Assessment and plan (1) Cardiogenic shock: Initially during hospital stay patient was in cardiogenic shock: Currently it has resolved: Maintaining good perfusion, has no JVD, extremities are, warm, not on any inotropic support.She is off Levophed. Cardiogenic shock was attributed to NSTEMI. (2) Atrial fibrillation with RVR: Has converted to sinus rhythm. Patient was on amiodarone drip has been transitioned to p.o. amiodarone 400 twice daily, will complete 10 g loading dose protocol, thereafter she will continue on 200 mg p.o. daily. Patient was on therapeutic anticoagulation with Lovenox, currently on hold, due to high risk of bleeding. Long-term therapeutic anticoagulation, possibly could be avoided, given her age and risk of bleeding, and she also being on aspirin and Plavix for now. (3) NSTEMI (non-ST elevated myocardial infarction): Echocardiogram repeated showed an EF of 28% with LV cavity, moderate LA size and mild RA size increased, mild MR. S/p PCI to left main Continue with aspirin, Plavix, statin. Imdur and beta-candice has been resumed as the blood pressure is significantly improved.. (4) Left main coronary artery disease: (5) Respiratory failure with hypoxia and hypercapnia: Resolved. Patient back to baseline oxygen supplementation. D-dimer elevated 3.4. After age-related modification within normal limits. CT chest results appreciated. Concerns for bilateral pleural effusion with possible atelectasis and mild pneumonia. Respiratory viral panel negative. Sputum culture awaited. MRSA recently negative. Given critically illness for now start patient on IV Zosyn empirically. We will try to finish a 5-day course. Continue with DuoNebs every 6 hour, budesonide twice daily. Oxygen supplementation keeping saturation over 90%. (6) Heart failure: Decompensated heart failure with reduced ejection fraction Has been on Lasix Monitor intake output charting Daily weight Monitor electrolytes, keep potassium greater than 4, magnesium greater than 2 Telemetry monitoring (7) Chronic hyponatremia: Acute on chronic hyponatremia. Baseline sodium seems to be around 1 28-1 30. Down to 123. Most likely in setting of IV fluids she was getting for possible cardiac catheterization today. Repeat BMP in evening. Continue with oral salt 3 times daily. Patient slightly lethargic but no other symptoms of hyponatremia. (8) Hypertension: Goal blood pressure with mean over 65-70. Currently cardiogenic shock. Patient states usually blood pressures have been running around 170 for many years. Reluctant to increase antihypertensives too much. States on increasing medication she becomes very sleepy and tired. Multiple antihypertensives at home. Takes clonidine 0.1 twice daily, felodipine 10 mg oral every afternoon, hydralazine 25 mg 3 times daily, Imdur 60 mg oral daily, valsartan 160 mg twice daily. Hold off on antihypertensives as above. Qualifiers: Hypertension type: essential hypertension Qualified Code(s): I10 - Essential (primary) hypertension (9) Chronic renal insufficiency: DAXA on CKD: Likely secondary to JEANNINE, CRS: Baseline serum creatinine appears to be around 0.8-1 Monitor BMP. Monitor intake output charting Avoid nephrotoxic's Was On IV albumin Currently on temporary hemodialysis.First session received on 11/18. Nephrology on board (10) Hyperkalemia: Resolved Hold off on home dose potassium. Continue to monitor daily. (11) Coronary artery disease: Qualifiers: Coronary Disease-Associated Artery/Lesion type: [place] artery [place] vs. transplanted heart: [place] heart Associated angina: without angina Qualified Code(s): I25.10 - Atherosclerotic heart disease of [place] coronary artery without angina pectoris (12) Goals of care, counseling/discussion: (13) Anemia: Monitor H&H Transfuse to maintain hemoglobin greater than 7 Currently on IV iron. Plan DVT ppx: On subcu heparin CODE STATUS full code Attestations Medical Necessity Statement*: Needs to be in hospital for monitoring of renal function. Coding Level of Care Code Acute Code for [facility] Fwd Diagnoses Cardiogenic shock R57.0 Atrial fibrillation with RVR I48.91 NSTEMI (non-ST elevated myocardial infarction) I21.4 Left main coronary artery disease I25.10 Respiratory failure with hypoxia and hypercapnia J96.91; J96.92 Heart failure I50.9 Chronic hyponatremia E87.1 Hypertension I10 Hypertension type: essential hypertension Chronic renal insufficiency N18.9 Hyperkalemia E87.5 Coronary artery disease I25.10 Coronary Disease-Associated Artery/Lesion type: [place] artery [place] vs. transplanted heart: [place] heart Associated angina: without angina Goals of care, counseling/discussion Z71.89 Anemia D64.9
--- NOTE | 2022-11-20 18:09 | PC.NURSE ---
Shift SUmmary: uneventful shift. Patient sat on the side of the bed today for about 4 minutes an,d required assistance from nurse to do so. Up to a chair via hayden lift for about 6 hours. Though still lethargic, patient was a little more alert today. Oral intake has increased, 1400 mL intake, but only 20mL of urine output. Patient ate a fruit cup, drank 100mL of an ensure, and 1300mL of water. Nurse has been encouraging more fluids containing calories such as the ensure or milk, but patient mainly wants water.
[2022-11-20] MEDS: ipratropium-albuterol 3 mL Neb INHALATION (19:56)
[2022-11-20] MEDS: atorvastatin 40 mg Tablet PO (20:30)
[2022-11-21] VITALS (31 sets, daily range): BP systolic 127–173; BP diastolic 40–63; PULSE 48–69; RESP 13–20; TEMP 36.6–36.9; O2SAT 91–100; BMI 31.9
[2022-11-21] MEDS: HYDROcodone-acetaminophen 5-325 mg Tablet 1 TAB PO ×3 (03:47→19:31)
[2022-11-21] MEDS: heparin 5,000 unit/mL INJ 1 mL 5000 UNIT SUBCUT ×2 (05:48→18:02)
[2022-11-21] MEDS: levothyroxine 88 mcg Tablet PO (05:48)
--- NOTE | 2022-11-21 07:38 | P.PN_ITS ---
Subjective Subjective: Patient improving No major cardiac issues reported overnight No fever, chills or rigors Tolerating PO diet Urine output remains low Vitals/I&O/Wt Last Vital Signs Temp 98.3 F 11/20/22 17:00 Pulse 64 11/21/22 06:00 Resp 18 11/21/22 06:00 BP 167/49 11/21/22 06:00 Pulse Ox 99 11/21/22 06:00 O2 Del Method Nasal Cannula 11/20/22 19:56 O2 Flow Rate 2 11/20/22 19:56 FiO2 30 11/18/22 16:00 11/20/22 11/21/22 11/21/22 22:59 06:59 14:59 Intake Total 1110 / 1610 200 / 1810 Output Total 40 / 40 15 / 55 Balance 1070 / 1570 185 / 1755 Weight last 48 hrs Weight 169 lb 2 oz Weight 164 lb 5 oz Weight 156 lb 11.979 oz Physical Exam Const: COMMON NORMALS: no acute distress GENERAL APPEARANCE: cooperative and comfortable Chest: COMMONS NORMALS: normal inspection of the chest Resp: COMMON NORMALS: normal respiratory effort, No use of accessory muscles and clear to auscultation bilaterally AUSCULTATION: clear to auscultation bilaterally OTHER: Bilateral basal crackles noted Cardio: COMMON NORMALS: S1 normal heart sound present, S2 normal heart sound present, No gallops present (Cardio) and No murmurs present (Cardio); negative for regular rate JUGULAR VENOUS DISTENTION: no JVD RATE: abnormal rate HEART SOUNDS: S1 normal heart sound present and S2 normal heart sound present Urinary Catheter Management: Ilm: Cath Placed During This Visit: yes Reason for Continuing Indwelling Catheter: Accurate Measurement of Urinary Output in Critically Ill Patients Urinary Catheter Date of Insertion: 11/07/22 Urinary Catheter Time of Insertion: 19:00 Data 11/20/22 03:35 11/20/22 03:35 CXR: Radiologist's impression: Bilateral small effusions noted NO CHF -01/20 A&P Assessment and plan (1) Left main coronary artery disease: Coronary artery disease SP stent Left Main * Continue Plavix 75 g p.o. once a day. * Would continue aspirin 80 mg p.o. once a day at this time although if patient is started on Eliquis will discontinue aspirin. * Telemetry monitoring, * High-dose statins. * Physical therapy * Check TSH (2) Uncontrolled hypertension: * Regarding blood pressure management, medication adjusted 1 made yesterday and patient has been reduced back to hydralazine 25 mg p.o. 3 times daily as her blood pressure improved with adjustment of beta-blockers. * Monitor blood pressures (3) Atrial fibrillation with RVR: * Will continue to monitor weight at this time. * Will continue aspirin. Prevention at this time. * Recommend initiation of NOACs prior to discharge once patient stabilizes in a disposition is determined. * Will continue amiodarone loading at this time (4) Hypertension: See below Qualifiers: Hypertension type: essential hypertension Qualified Code(s): I10 - Essential (primary) hypertension (5) Ischemic cardiomyopathy: * Will continue to monitor fluid status. * Will continue beta-blockers, add Imdur and hydralazine. * Will consider initiation of RONI inhibitor prior to discharge once renal function has been determined to have stabilized with improvement vs continuing outpatient dialysis Plan * NSTEMI (non-ST elevated myocardial infarction): -Increase metoprolol 25mg daily today * Hypertension - Uncontrolled- * Improved we will continue to monitor at this time * Acute Renal insufficiency * Will monitor intravascular fluid status. * As patient continues to have poor urine output, will require dialysis in t he next 24 to 48 hours would defer to nephrology/ICU service. * Chronic hyponatremia: -Improved -Will monitor for now Attestations Medical Necessity Statement*: Kati Chris's hospital stay will require greater than 2 midnights for Coding Level of Care Code Acute Code for [facility] Diagnoses Left main coronary artery disease I25.10 Uncontrolled hypertension I10 Atrial fibrillation with RVR I48.91 Hypertension I10 Hypertension type: essential hypertension Ischemic cardiomyopathy I25.5
--- NOTE | 2022-11-21 07:38 | P.PN_ITS ---
Subjective Subjective: no new issues Vitals/I&O/Wt Last Vital Signs Temp 98.3 F 11/20/22 17:00 Pulse 64 11/21/22 06:00 Resp 18 11/21/22 06:00 BP 167/49 11/21/22 06:00 Pulse Ox 99 11/21/22 06:00 O2 Del Method Nasal Cannula 11/20/22 19:56 O2 Flow Rate 2 11/20/22 19:56 FiO2 30 11/18/22 16:00 11/20/22 11/21/22 11/21/22 22:59 06:59 14:59 Intake Total 1110 / 1610 200 / 1810 Output Total 40 / 40 15 / 55 Balance 1070 / 1570 185 / 1755 Weight last 48 hrs Weight 76.714 kg Weight 74.531 kg Weight 71.1 kg Physical Exam Const: COMMON NORMALS: no acute distress and alert Neuro: SENSORIUM/ORIENTATION: Yes alert Urinary Catheter Management: Jennings: Cath Placed During This Visit: yes Reason for Continuing Indwelling Catheter: Accurate Measurement of Urinary Output in Critically Ill Patients Urinary Catheter Date of Insertion: 11/07/22 Urinary Catheter Time of Insertion: 19:00 Data 11/20/22 03:35 11/20/22 03:35 A&P Assessment and plan (1) Acute kidney injury: Plan 1. Acute oligoanuric renal failure due to cardiogenic shock, contrast. s/p NSTEMI, stent. Minimal urine output. received HD 11/18 and 11/19 2. Hyponatremia, improved, mild 3. Anemia, Hb stable, iron deficient, rx IV iron load Recommend: remove jennings, can removed femoral vein HD catheter. Plan to place tunneled IJ HD catheter if renal function not improved tomorrow or Tuesday Attestations Medical Necessity Statement*: see above Time Spent in Patient Care: 16 - 35 minutes Coding Level of Care Code Acute Code for [facility] Fwd Diagnoses Acute kidney injury N17.9
[2022-11-21] MEDS: tamsulosin 0.4 mg Capsule PO (08:06)
[2022-11-21] MEDS: gabapentin 100 mg Capsule PO ×2 (08:06→18:02)
[2022-11-21] MEDS: hyDRALAzine 25 mg Tablet PO ×3 (08:06→20:19)
[2022-11-21] MEDS: amiodarone 200 mg Tablet 400 MG PO (08:06)
[2022-11-21] MEDS: aspirin 81 mg Chew Tablet PO (08:06)
[2022-11-21] MEDS: citalopram 20 mg Tablet 10 MG PO (08:06)
[2022-11-21] MEDS: isosorbide mononitrate ER 60 mg Tablet PO (08:06)
[2022-11-21] MEDS: FUROsemide 10 mg/mL SDV 4mL 40 MG IVP (08:06)
[2022-11-21] MEDS: clopidogrel 75 mg Tablet PO (08:06)
[2022-11-21] MEDS: lidocaine 5% Patch 1 PATCH TOPICAL (08:07)
[2022-11-21] MEDS: metoprolol tartrate 25 mg Tablet PO (08:22)
[2022-11-21] MEDS: ipratropium-albuterol 3 mL Neb INHALATION ×2 (08:29→20:04)
[2022-11-21] MEDS: budesonide 0.5 mg/2 mL Neb INHALATION ×2 (08:29→20:04)
[2022-11-21 08:55] LABS: Thyroid Stimulating Hormone 0.83 uIU/mL (0.27-4.20)
[2022-11-21] MEDS: iron sucrose 200 MG in sodium chloride 0.9% (100 ml) 100 ML 220 MG IV (15:17)
--- NOTE | 2022-11-21 15:55 | P.PN_ITS ---
Subjective Subjective: Patient was seen and examined this morning, continued to have poor urine output, if patient continues to have poor urine output, she will need tunneled dialysis catheter in 24 to 48 hours. Medications: Reviewed: Yes Medication Review Details: Generic Name Dose Route Start Last Admin Trade Name Freq PRN Reason Stop Dose Admin Hydrocodone Bitart /Acetaminophen 1 tab 11/20/22 07:40 11/21/22 09:05 Hydrocodone-Acet aminophen 5-325 Mg Tablet PO 1 tab Q4H PRN Administration MODERATE PAIN Albuterol/Ipratrop ium 3 ml 11/18/22 09:07 11/21/22 08:29 Ipratropium-Albu terol 3 Ml Neb INHALATION 3 ml QID.RESPIRATORY P RN Administration SHORTNESS OF QUINTIN TH Amiodarone HCl 400 mg 11/19/22 09:00 11/21/22 08:06 Amiodarone 200 M g Tablet PO 400 mg DAILY IMMANUEL Administration Aspirin 81 mg 11/11/22 09:00 11/21/22 08:06 Aspirin 81 Mg Ch ew Tablet PO 81 mg DAILY IMMANUEL Administration Atorvastatin Calci um 40 mg 11/10/22 21:00 11/20/22 20:30 Atorvastatin 40 Mg Tablet PO 40 mg BEDTIME IMMANUEL Administration Bisacodyl 10 mg 11/07/22 17:16 11/11/22 13:56 Bisacodyl 5 Mg T ablet PO 10 mg DAILY PRN Administration Constipation Budesonide 0.5 mg 11/10/22 20:00 11/21/22 08:29 Budesonide 0.5 M g/2 Ml Neb INHALATION 0.5 mg BID.RESPIRATORY S CH Administration Citalopram Hydrobr omide 10 mg 11/13/22 09:00 11/21/22 08:06 Citalopram 20 Mg Tablet PO 10 mg DAILY IMMANUEL Administration Clopidogrel Bisulf ate 75 mg 11/11/22 09:00 11/21/22 08:06 Clopidogrel 75 M g Tablet PO 75 mg DAILY IMMANUEL Administration Enoxaparin Sodium 70 mg 11/16/22 21:00 11/17/22 20:06 Enoxaparin 80 Mg /0.8 Ml Syringe SUBCUT 70 mg Q24H IMMANUEL Administration Furosemide 40 mg 11/17/22 08:00 11/21/22 08:06 Furosemide 10 Mg /Ml Sdv 4ml IVP 40 mg Q24H IMMANUEL Administration Gabapentin 100 mg 11/07/22 18:00 11/21/22 08:06 Gabapentin 100 M g Capsule PO 100 mg BID IMMANUEL Administration Heparin Sodium (Po rcine) 5,000 unit 11/19/22 19:00 11/21/22 05:48 Heparin 5,000 Un it/Ml Inj 1 Ml SUBCUT 5,000 unit Q12H IMMANUEL Administration Hydralazine HCl 25 mg 11/20/22 15:00 11/21/22 15:26 Hydralazine 25 M g Tablet PO 25 mg TID IMMANUEL Administration Iron Sucrose 200 m g/ Sodium 110 mls @ 220 mls /hr 11/19/22 14:00 11/21/22 15:17 Chloride IV 11/23/22 14:29 220 mls/hr Q24H IMMANUEL Administration Isosorbide Mononit rate 60 mg 11/17/22 09:00 11/21/22 08:06 Isosorbide [place] itrate Er 60 Mg Ta blet PO 60 mg DAILY IMMANUEL Administration Levothyroxine Sodi um 88 mcg 11/08/22 05:00 11/21/22 05:48 Levothyroxine 88 Mcg Tablet PO 88 mcg DAILY@05 IMMANUEL Administration Lidocaine 1 patch 11/15/22 21:00 11/21/22 08:07 Lidocaine 5% Pat ch TOPICAL 1 patch [id number] [facility] Administration Magnesium Hydroxid e 30 ml 11/11/22 16:56 11/11/22 17:08 Magnesium Hydrox mely 30 Ml Udc PO 30 ml DAILY PRN Administration CONSTIPATION Metoprolol Tartrat e 25 mg 11/20/22 09:00 11/21/22 08:22 Metoprolol Tartr ate 25 Mg Tablet PO 25 mg DAILY IMMANUEL Administration Morphine Sulfate 2 mg 11/18/22 17:25 11/20/22 03:48 Morphine 4 Mg/Ml Sdv 1 Ml IVP 2 mg Q8H PRN Administration SEVERE PAIN Tamsulosin HCl 0.4 mg 11/14/22 09:00 11/21/22 08:06 Tamsulosin 0.4 M g Capsule PO 0.4 mg DAILY IMMANUEL Administration Vitals/I&O/Wt Last Vital Signs Temp 98.4 F 11/21/22 10:00 Pulse 49 L 11/21/22 14:00 Resp 19 H 11/21/22 09:00 BP 145/44 11/21/22 14:00 Pulse Ox 98 11/21/22 13:00 O2 Del Method Nasal Cannula 11/21/22 08:29 O2 Flow Rate 3 11/21/22 08:29 FiO2 30 11/18/22 16:00 11/21/22 11/21/22 11/21/22 06:59 14:59 22:59 Intake Total 200 / 1810 120 / 120 Output Total 15 / 55 Balance 185 / 1755 120 / 120 Weight last 48 hrs Weight 76.714 kg Weight 74.531 kg Weight 71.1 kg Physical Exam Const: COMMON NORMALS: patient oriented x3 HENMT: COMMON NORMALS: normocephalic and atraumatic HEAD & SCALP: normocephalic and atraumatic Resp: COMMON NORMALS: clear to auscultation bilaterally EFFORT & INSPECTION: Yes symmetric chest movement AUSCULTATION: clear to auscultation bilaterally OTHER: Diminished air entry bilaterally, b/l Cardio: COMMON NORMALS: regular rate, regular rhythm, S1 normal heart sound present, S2 normal heart sound present, No gallops present (Cardio), No murmurs present (Cardio), No rub (Cardio) and Peripheral pulses 2+ throughout RATE: regular rate RHYTHM: regular rhythm HEART SOUNDS: S1 normal heart sound present and S2 normal heart sound present PERIPHERAL PULSES: Peripheral pulses 2+ throughout GI: COMMON NORMALS: Normal to inspection, nondistended, normoactive bowel sounds present, Soft to palpation, non-tender, No hepatosplenomegaly present and no masses AUSCULTATION: Yes normoactive bowel sounds PALPATION: Yes Soft to palpation and Yes No hepatosplenomegaly present RECTAL EXAM: deferred Extremity: COMMON NORMALS: no clubbing, cyanosis or edema and no pedal edema OTHER: 3+ Pitting edema present in both the lungs schaeffer. Neuro: COMMON NORMALS: patient oriented x3 Urinary Catheter Management: Lim: Cath Placed During This Visit: yes Reason for Continuing Indwelling Catheter: Accurate Measurement of Urinary Output in Critically Ill Patients Urinary Catheter Date of Insertion: 11/07/22 Urinary Catheter Time of Insertion: 19:00 Data 11/20/22 03:35 11/20/22 03:35 A&P Assessment and plan (1) Cardiogenic shock: Initially during hospital stay patient was in cardiogenic shock: Currently it has resolved: Maintaining good perfusion, has no JVD, extremities are, warm, not on any inotropic support.She is off Levophed. Cardiogenic shock was attributed to NSTEMI. (2) Atrial fibrillation with RVR: Has converted to sinus rhythm. Patient was on amiodarone drip has been transitioned to p.o. amiodarone 400 twice daily, will complete 10 g loading dose protocol, thereafter she will continue on 200 mg p.o. daily. Patient was on therapeutic anticoagulation with Lovenox, currently on hold, due to high risk of bleeding. Long-term therapeutic anticoagulation, possibly could be avoided, given her age and risk of bleeding, and she also being on aspirin and Plavix for now. (3) NSTEMI (non-ST elevated myocardial infarction): Echocardiogram repeated showed an EF of 28% with LV cavity, moderate LA size and mild RA size increased, mild MR. S/p PCI to left main Continue with aspirin, Plavix, statin. Imdur and beta-candice has been resumed as the blood pressure is significantly improved.. (4) Left main coronary artery disease: (5) Respiratory failure with hypoxia and hypercapnia: Resolved. Patient back to baseline oxygen supplementation. D-dimer elevated 3.4. After age-related modification within normal limits. CT chest results appreciated. Concerns for bilateral pleural effusion with possible atelectasis and mild pneumonia. Respiratory viral panel negative. Sputum culture awaited. MRSA recently negative. Given critically illness for now start patient on IV Zosyn empirically. We will try to finish a 5-day course. Continue with DuoNebs every 6 hour, budesonide twice daily. Oxygen supplementation keeping saturation over 90%. (6) Heart failure: Decompensated heart failure with reduced ejection fraction Has been on Lasix Monitor intake output charting Daily weight Monitor electrolytes, keep potassium greater than 4, magnesium greater than 2 Telemetry monitoring (7) Chronic hyponatremia: Acute on chronic hyponatremia. Baseline sodium seems to be around 1 28-1 30. Down to 123. Most likely in setting of IV fluids she was getting for possible cardiac catheterization today. Repeat BMP in evening. Continue with oral salt 3 times daily. Patient slightly lethargic but no other symptoms of hyponatremia. (8) Hypertension: Goal blood pressure with mean over 65-70. Currently cardiogenic shock. Patient states usually blood pressures have been running around 170 for many years. Reluctant to increase antihypertensives too much. States on increasing medication she becomes very sleepy and tired. Multiple antihypertensives at home. Takes clonidine 0.1 twice daily, felodipine 10 mg oral every afternoon, hydralazine 25 mg 3 times daily, Imdur 60 mg oral daily, valsartan 160 mg twice daily. Hold off on antihypertensives as above. Qualifiers: Hypertension type: essential hypertension Qualified Code(s): I10 - Essential (primary) hypertension (9) Chronic renal insufficiency: DAXA on CKD: Likely secondary to JEANNINE, CRS: Progressed to likely acute renal failure. Baseline serum creatinine appears to be around 0.8-1 Monitor BMP. Monitor intake output charting Avoid nephrotoxic's Was On IV albumin Currently on IV Lasix Currently on temporary hemodialysis.First session received on 11/18. Nephrology on board Surgery has been informed for the possibility of tunneled dialysis catheter. (10) Hyperkalemia: Resolved Hold off on home dose potassium. Continue to monitor daily. (11) Coronary artery disease: Qualifiers: Coronary Disease-Associated Artery/Lesion type: [place] artery [place] vs. transplanted heart: [place] heart Associated angina: without angina Qualified Code(s): I25.10 - Atherosclerotic heart disease of [place] coronary a rtery without angina pectoris (12) Goals of care, counseling/discussion: (13) Anemia: Monitor H&H Transfuse to maintain hemoglobin greater than 7 Currently on IV iron. Plan DVT ppx: On subcu heparin CODE STATUS full code Attestations Medical Necessity Statement*: Needs to be in hospital for management of acute renal failure. Coding Level of Care Code Acute Code for [facility] Fwd Diagnoses Cardiogenic shock R57.0 Atrial fibrillation with RVR I48.91 NSTEMI (non-ST elevated myocardial infarction) I21.4 Left main coronary artery disease I25.10 Respiratory failure with hypoxia and hypercapnia J96.91; J96.92 Heart failure I50.9 Chronic hyponatremia E87.1 Hypertension I10 Hypertension type: essential hypertension Chronic renal insufficiency N18.9 Hyperkalemia E87.5 Coronary artery disease I25.10 Coronary Disease-Associated Artery/Lesion type: [place] artery [place] vs. transplanted heart: [place] heart Associated angina: without angina Goals of care, counseling/discussion Z71.89 Anemia D64.9
[2022-11-21] MEDS: acetaminophen 325 mg Tablet 650 MG PO (19:32)
[2022-11-21] MEDS: atorvastatin 40 mg Tablet PO (20:19)
[2022-11-21] MEDS: lidocaine 4% cream 5 gm 1 APPLIC TOPICAL (20:40)
[2022-11-22] VITALS (55 sets, daily range): BP systolic 120–179; BP diastolic 41–79; PULSE 50–69; RESP 12–24; TEMP 37–37.2; O2SAT 90–99
[2022-11-22] MEDS: HYDROcodone-acetaminophen 5-325 mg Tablet 1 TAB PO (00:22)
--- NOTE | 2022-11-22 00:32 | PC.NURSE ---
Pain: Family expressed concerns that the pt's pain is not being controlled. Pt reports 10/10 pain. Family states that pt takes 10mg of hydrocodone Q4HR at home. Dr. Alonzo contacted, new order to increase hydrocodone to 2 tabs.
[2022-11-22 02:54] LABS: Basophils % 0.2 %; Eosinophils # 0.1 10^3/uL (0.0-0.8); Eosinophils % 1.4 %; Hematocrit 24.8 % (37.0-47.0); Hemoglobin 7.3 g/dL (11.5-15.3); Lymphocytes # 0.6 10^3/uL (0.8-4.8); Lymphocytes % 5.9 %; Mean Corpuscular HGB Conc 29.4 g/dL (30.0-36.0); Mean Corpuscular Hemoglobin 30.3 pg (28.0-34.0); Mean Corpuscular Volume 102.9 fl (81-99); Mean Platelet Volume 10.5 fL (7.4-10.4); Monocytes # 0.7 10^3/uL (0.2-0.9); Monocytes % 6.6 %; Neutrophils # 8.57 10^3/uL (1.8-7.7); Neutrophils % 83.7 %; Nucleated Red Blood Cells % 0 %; Platelet Count 485 10^3/cmm (130-400); Red Blood Count 2.41 10^6/uL (4.1-5.3); Red Cell Distribution Width 15.7 % (12.1-15.1); White Blood Count 10.2 10^3/uL (4.0-10.0)
[2022-11-22 03:18] LABS: Alanine Aminotransferase 11 U/L (0-33); Albumin Level 2.8 g/dL (3.5-5.2); Alkaline Phosphatase 99 U/L (35-105); Blood Urea Nitrogen 32 mg/dL (8-23); Carbon Dioxide 25 mmol/L (22-29); Chloride 94 mmol/L (98-107); Globulin 2.4 g/dL (1.3-4.6); Glucose 96 mg/dL (65-115); Osmolality Calculated 275 mOsm/kg (285-295); Sodium 129 mmol/L (136-145); Total Bilirubin 0.3 mg/dL (0.15-1.2); Total Protein 5.2 g/dL (6.6-8.7)
[2022-11-22 03:36] LABS: Anion Gap 14.2 (5-19); Aspartate Amino Transferase 19 U/L (0-32); Potassium 4.2 mmol/L (3.5-5.1)
[2022-11-22] MEDS: HYDROcodone-acetaminophen 5-325 mg Tablet 2 TAB PO ×3 (05:09→18:08)
[2022-11-22] MEDS: levothyroxine 88 mcg Tablet PO (05:09)
--- NOTE | 2022-11-22 05:46 | PM.PN ---
Subjective Subjective: she reports no new symptoms family at bedside, all questions answered Vitals/I&O/Wt Last Vital Signs Temp 97.8 F 11/21/22 20:30 Pulse 51 L 11/22/22 04:00 Resp 12 11/22/22 04:00 BP 140/43 11/22/22 04:00 Pulse Ox 95 11/22/22 02:30 O2 Del Method Nasal Cannula 11/22/22 00:30 O2 Flow Rate 3 11/22/22 00:30 FiO2 30 11/18/22 16:00 11/21/22 11/21/22 11/22/22 14:59 22:59 06:59 Intake Total 120 / 120 310 / 430 Output Total 0 / 0 Balance 120 / 120 310 / 430 0 / 430 Weight last 48 hrs Weight 76.714 kg Physical Exam Extremity: GENERAL: Yes edema Urinary Catheter Management: Lim: Cath Placed During This Visit: yes, but has since been removed by the nurse Reason for Continuing Indwelling Catheter: Accurate Measurement of Urinary Output in Critically Ill Patients Urinary Catheter Date of Insertion: 11/07/22 Urinary Catheter Time of Insertion: 19:00 Date Urinary Catheter Removed: 11/21/22 Time Urinary Catheter Discontinued: 14:00 Data 11/22/22 07:28 11/22/22 07:28 Other Labs: Ca 8, albumin 2.9 Other data: seen via telemedicine with assitance of RN at bedside A&P Assessment and plan (1) Acute kidney injury: Plan 1. Acute oligoanuric renal failure due to cardiogenic shock, contrast. s/p NSTEMI, stent. Minimal urine output. received HD 11/18 and 11/19 2. Hyponatremia 3. Anemia, iron deficient, rx IV iron load, epogen today at dialysis Recommend:HD today, 3h 2L UF, 3K bath, then remove femoral vein HD catheter. Place tunneled IJ HD catheter tomorrow or Tuesday prior to next HD session Attestations Medical Necessity Statement*: see above Time Spent in Patient Care: 16 - 35 minutes Coding Level of Care Code Acute Code for g Fwd Diagnoses Acute kidney injury N17.9
[2022-11-22] MEDS: heparin 5,000 unit/mL INJ 1 mL 5000 UNIT SUBCUT ×2 (06:01→18:07)
[2022-11-22 07:39] LABS: Basophils % 0.2 %; Eosinophils # 0.2 10^3/uL (0.0-0.8); Eosinophils % 1.4 %; Hematocrit 25.1 % (37.0-47.0); Hemoglobin 7.5 g/dL (11.5-15.3); Lymphocytes # 0.7 10^3/uL (0.8-4.8); Lymphocytes % 6.1 %; Mean Corpuscular HGB Conc 29.9 g/dL (30.0-36.0); Mean Corpuscular Hemoglobin 30.7 pg (28.0-34.0); Mean Corpuscular Volume 102.9 fl (81-99); Mean Platelet Volume 10.3 fL (7.4-10.4); Monocytes # 0.9 10^3/uL (0.2-0.9); Monocytes % 7.7 %; Neutrophils # 9.96 10^3/uL (1.8-7.7); Neutrophils % 82.3 %; Nucleated Red Blood Cells % 0.2 %; Platelet Count 498 10^3/cmm (130-400); Red Blood Count 2.44 10^6/uL (4.1-5.3); Red Cell Distribution Width 15.7 % (12.1-15.1); White Blood Count 12.1 10^3/uL (4.0-10.0)
[2022-11-22 07:57] LABS: Alanine Aminotransferase 11 U/L (0-33); Albumin Level 2.8 g/dL (3.5-5.2); Alkaline Phosphatase 106 U/L (35-105); Aspartate Amino Transferase 16 U/L (0-32); Blood Urea Nitrogen 32 mg/dL (8-23); Carbon Dioxide 27 mmol/L (22-29); Chloride 93 mmol/L (98-107); Globulin 3.1 g/dL (1.3-4.6); Glucose 109 mg/dL (65-115); Magnesium 2.8 mg/dL (1.7-2.3); Osmolality Calculated 271 mOsm/kg (285-295); Sodium 127 mmol/L (136-145); Total Bilirubin 0.3 mg/dL (0.15-1.2); Total Protein 5.9 g/dL (6.6-8.7)
[2022-11-22 08:10] LABS: INR 1.14 (0.8-1.2)
[2022-11-22] MEDS: budesonide 0.5 mg/2 mL Neb INHALATION ×2 (08:10→20:46)
[2022-11-22 08:12] LABS: Partial Thromboplastin Time 43.6 SECONDS (23.9-36.7)
[2022-11-22] MEDS: gabapentin 100 mg Capsule PO ×2 (08:12→18:07)
[2022-11-22] MEDS: aspirin 81 mg Chew Tablet PO (08:12)
[2022-11-22] MEDS: isosorbide mononitrate ER 60 mg Tablet PO (08:12)
[2022-11-22] MEDS: clopidogrel 75 mg Tablet PO (08:12)
[2022-11-22] MEDS: metoprolol tartrate 25 mg Tablet PO (08:12)
[2022-11-22] MEDS: hyDRALAzine 25 mg Tablet PO ×3 (08:12→20:36)
[2022-11-22] MEDS: tamsulosin 0.4 mg Capsule PO (08:13)
[2022-11-22] MEDS: amiodarone 200 mg Tablet 400 MG PO (08:13)
[2022-11-22] MEDS: citalopram 20 mg Tablet 10 MG PO (08:13)
[2022-11-22] MEDS: lidocaine 5% Patch 1 PATCH TOPICAL (08:13)
--- NOTE | 2022-11-22 08:47 | P.PN_ITS ---
Subjective Subjective: Patient remains in bed has not ambulated since yesterday. No chest pain shortness breath reported. Patient has been placed on oxygen overnight at 2 L/min No hypotension reported although patient lower extremity swelling has worsened since yesterday. Tolerating medication well with no side effects. Vitals/I&O/Wt Last Vital Signs Temp 97.8 F 11/21/22 20:30 Pulse 67 11/22/22 08:30 Resp 23 H 11/22/22 08:30 BP 164/74 11/22/22 08:30 Pulse Ox 90 11/22/22 08:30 O2 Del Method Nasal Cannula 11/22/22 08:10 O2 Flow Rate 1 11/22/22 08:10 FiO2 30 11/18/22 16:00 11/21/22 11/22/22 11/22/22 22:59 06:59 14:59 Intake Total 310 / 430 Output Total 0 / 0 Balance 310 / 430 0 / 430 Weight last 48 hrs Weight 169 lb 2 oz Physical Exam Const: COMMON NORMALS: no acute distress GENERAL APPEARANCE: cooperative and comfortable Chest: COMMONS NORMALS: normal inspection of the chest Resp: COMMON NORMALS: normal respiratory effort, No use of accessory muscles and clear to auscultation bilaterally AUSCULTATION: clear to auscultation bilaterally OTHER: Bilateral basal crackles noted Cardio: COMMON NORMALS: S1 normal heart sound present, S2 normal heart sound present, No gallops present (Cardio) and No murmurs present (Cardio); negative for regular rate JUGULAR VENOUS DISTENTION: no JVD RATE: abnormal rate HEART SOUNDS: S1 normal heart sound present and S2 normal heart sound present Extremity: NARRATIVE EXTREMITY EXAM: 2+ pitting edema is noted Urinary Catheter Management: Lim: Cath Placed During This Visit: yes, but has since been removed by the nurse Reason for Continuing Indwelling Catheter: Accurate Measurement of Urinary Output in Critically Ill Patients Urinary Catheter Date of Insertion: 11/07/22 Urinary Catheter Time of Insertion: 19:00 Date Urinary Catheter Removed: 11/21/22 Time Urinary Catheter Discontinued: 14:00 Data 11/22/22 07:28 11/22/22 07:28 A&P Assessment and plan (1) Left main coronary artery disease: Coronary artery disease SP stent Left Main * Continue Plavix 75 g p.o. once a day for 12 months * Would continue aspirin 81 mg p.o. once a day at this time although if patient is started on Eliquis will discontinue aspirin. * Telemetry monitoring, * Continue high-dose statins. * Physical therapy * Currently appears to be fluid overloaded, based on crackles and lower extremity edema would recommend dialysis if agreed by nephrology services. (2) Uncontrolled hypertension: * Regarding blood pressure management, improved based on last 24 hours. * Will continue current medication regimen with no changes * Monitor blood pressures (3) Atrial fibrillation with RVR: * Will continue aspirin for stroke prevention prevention at this time. * Recommend initiation of NOACs prior to discharge once patient stabilizes in a disposition is determined. * Will continue amiodarone loading at this time at 400 mg p.o. once a day (4) Hypertension: See below Qualifiers: Hypertension type: essential hypertension Qualified Code(s): I10 - Essential (primary) hypertension (5) Ischemic cardiomyopathy: * Will continue to monitor fluid status. * As noted above patient appears to be fluid overloaded and may benefit from dialysis as per nephrology service. * Will continue beta-blockers, add Imdur and hydralazine. Plan * Acute Renal insufficiency * As above Attestations Medical Necessity Statement*: Kati Chris's hospital stay will require greater than 2 midnights for Coding Level of Care Code Acute Code for [facility] Diagnoses Left main coronary artery disease I25.10 Uncontrolled hypertension I10 Atrial fibrillation with RVR I48.91 Hypertension I10 Hypertension type: essential hypertension Ischemic cardiomyopathy I25.5
--- NOTE | 2022-11-22 10:52 | PM.CONSULT ---
Providers/Reason For Consult Consulting Physician/Specialty*: Denita Powell MD Reason for Consult*: Dialysis access Requesting Physician: Amari Avila MD Attending Physician: Amari Avila MD Primary Care Provider: Doe Bui MD History of Present Illness History of Present Illness Kati Chris is a 82 year old [id number] female currently receiving hemodialysis for acute renal failure via a femoral catheter that was placed 4 days ago. It is anticipated that she will need ongoing hemodialysis, so a tunneled catheter was requested. She is 7 days status post PCI and drug-eluting stent placement on dual antiplatelet therapy that cannot be interrupted. She denies any prior intravascular devices or history of pneumothorax. Medications/Allergies Home Medications Medication Instructions Recorded Confirmed Last Taken Type hydrocodone 10 mg-acetaminophen 1 tab PO Q4H PRN Pain 30 days #180 09/27/22 11/07/22 11/07/22 Rx 325 mg tablet tabs felodipine 10 mg tablet,extended 10 mg PO DAILY@08 10/08/22 11/07/22 11/07/22 History release 24 hr gabapentin 100 mg capsule 100 mg PO BID 10/08/22 11/07/22 11/07/22 History tamsulosin 0.4 mg capsule 0.4 mg PO BID 10/08/22 11/07/22 11/07/22 History albuterol sulfate 90 mcg/actuation 1 inh inhalation Q6H PRN shortness 10/10/22 11/07/22 Unknown Rx aerosol inhaler of breath or wheezing #8.5 grams ondansetron HCl 4 mg tablet 4 mg PO Q6H PRN nausea and 10/14/22 11/07/22 Unknown Rx vomiting #30 tabs benzonatate 100 mg capsule 100 mg PO TID PRN Cough 10/16/22 11/07/22 Unknown History clonidine HCl 0.1 mg tablet 0.1 mg PO BID #60 tabs 10/27/22 11/07/22 11/07/22 Rx hydralazine 25 mg tablet 25 mg PO TID #90 tabs 10/27/22 11/07/22 11/07/22 Rx lactulose 10 gram/15 mL (15 mL) 10 g (15 mL) PO DAILY PRN 10/29/22 11/07/22 Unknown Rx oral solution constipation #473 mL acetaminophen 325 mg tablet 650 mg PO Q6H PRN Pain 11/07/22 11/07/22 Unknown History (Tylenol) bisacodyl 10 mg rectal suppository 10 mg NM DAILY PRN Constipation 11/07/22 11/07/22 Unknown History (Dulcolax (bisacodyl)) bisacodyl 5 mg tablet,delayed 10 mg PO DAILY PRN Constipation 11/07/22 11/07/22 Unknown History release (Dulcolax (bisacodyl)) furosemide 20 mg tablet 20 mg PO DAILY@11/07/22 11/07/22 11/07/22 History isosorbide mononitrate 60 mg 60 mg PO DAILY@11/07/22 11/07/22 11/07/22 History tablet,extended release 24 hr levothyroxine 88 mcg tablet 88 mcg PO DAILY@11/07/22 11/07/22 11/07/22 History magnesium hydroxide 400 mg/5 mL 30 ml PO .EVERY 72 HOURS PRN if no 11/07/22 11/07/22 Unknown History oral suspension (Milk of Magnesia) bm in 3 days *do not give to renal pts* magnesium oxide 400 mg (241.3 mg 400 mg PO BID 11/07/22 11/07/22 11/07/22 History magnesium) tablet menthol 0.44 %-zinc oxide 20.6 % See Rx Instructions .Route .COMPLEX 11/07/22 11/07/22 11/07/22 History topical ointment (Calmoseptine) potassium chloride 20 mEq 20 meq PO DAILY@11/07/22 11/07/22 11/07/22 History tablet,extended release(part/cryst) (Klor-Con M) sodium phosphates 19 gram-7 118 ml NM DAILY PRN Constipation 11/07/22 11/07/22 Unknown History gram/118 mL enema (Fleet Enema) valsartan 160 mg tablet 160 mg PO BID 11/07/22 11/07/22 11/07/22 History Allergies Allergy/AdvReac Type Severity Reaction Status Date / Time prazosin Allergy Severe ALGY-Difficulty Verified 11/07/22 12:55 Breathing Current Medications Generic Name Dose Route Start Last Admin Trade Name Freq PRN Reason Stop Dose Admin Albuterol/Ipratropium 3 ml 11/18/22 09:07 11/21/22 20:04 Ipratropium-Albuterol 3 Ml Neb INHALATION 3 ml QID.RESPIRATORY PRN Administration SHORTNESS OF BREATH Aspirin 81 mg 11/11/22 09:00 11/22/22 08:12 Aspirin 81 Mg Chew Tablet PO 81 mg DAILY IMMANUEL Administration Atorvastatin Calcium 40 mg 11/10/22 21:00 11/21/22 20:19 Atorvastatin 40 Mg Tablet PO 40 mg BEDTIME IMMANUEL Administration Bisacodyl 10 mg 11/07/22 17:16 11/11/22 13:56 Bisacodyl 5 Mg Tablet PO 10 mg DAILY PRN Administration Constipation Budesonide 0.5 mg 11/10/22 20:00 11/22/22 08:10 Budesonide 0.5 Mg/2 Ml Neb INHALATION 0.5 mg BID.RESPIRATORY IMMANUEL Administration Citalopram Hydrobromide 10 mg 11/13/22 09:00 11/22/22 08:13 Citalopram 20 Mg Tablet PO 10 mg DAILY IMMANUEL Administration Clopidogrel Bisulfate 75 mg 11/11/22 09:00 11/22/22 08:12 Clopidogrel 75 Mg Tablet PO 75 mg DAILY IMMANUEL Administration Enoxaparin Sodium 70 mg 11/16/22 21:00 11/17/22 20:06 Enoxaparin 80 Mg/0.8 Ml Syringe SUBCUT 70 mg Q24H IMMANUEL Administration Gabapentin 100 mg 11/07/22 18:00 11/22/22 08:12 Gabapentin 100 Mg Capsule PO 100 mg BID IMMANUEL Administration Heparin Sodium (Porcine) 5,000 unit 11/19/22 19:00 11/22/22 06:01 Heparin 5,000 Unit/Ml Inj 1 Ml SUBCUT 5,000 unit Q12H IMMANUEL Administration Hydralazine HCl 25 mg 11/20/22 15:00 11/22/22 08:12 Hydralazine 25 Mg Tablet PO 25 mg TID IMMANUEL Administration Iron Sucrose 200 mg/ Sodium 110 mls @ 220 mls/hr 11/19/22 14:00 11/21/22 19:00 Chloride IV 11/23/22 14:29 Infused Q24H IMMANUEL Infusion Isosorbide Mononitrate 60 mg 11/17/22 09:00 11/22/22 08:12 Isosorbide Mononitrate Er 60 Mg Tablet PO 60 mg DAILY IMMANUEL Administration Levothyroxine Sodium 88 mcg 11/08/22 05:00 11/22/22 05:09 Levothyroxine 88 Mcg Tablet PO 88 mcg DAILY@05 IMMANUEL Administration Lidocaine 1 patch 11/15/22 21:00 11/22/22 08:13 Lidocaine 5% Patch TOPICAL 1 patch [id number] IMMANUEL Administration Lidocaine 1 applic 11/16/22 16:19 11/21/22 20:40 Lidocaine 4% Cream 5 Gm TOPICAL 1 applic QID PRN Administration DISCOMFORT Magnesium Hydroxide 30 ml 11/11/22 16:56 11/11/22 17:08 Magnesium Hydroxide 30 Ml Udc PO 30 ml DAILY PRN Administration CONSTIPATION Metoprolol Tartrate 25 mg 11/20/22 09:00 11/22/22 08:12 Metoprolol Tartrate 25 Mg Tablet PO 25 mg DAILY IMMANUEL Administration Morphine Sulfate 2 mg 11/18/22 17:25 11/20/22 03:48 Morphine 4 Mg/Ml Sdv 1 Ml IVP 2 mg Q8H PRN Administration SEVERE PAIN Tamsulosin HCl 0.4 mg 11/14/22 09:00 11/22/22 08:13 Tamsulosin 0.4 Mg Capsule PO 0.4 mg DAILY IMMANUEL Administration PFSH Acute PFSH: Medical History Acute exacerbation of CHF (congestive heart failure) Acute hyponatremia Anemia Aortic stenosis Cervical radiculopathy Chronic hyponatremia Chronic hyponatremia Chronic low back pain Has had recent back surgery Chronic respiratory failure with hypoxia Community acquired pneumonia Congestive heart failure Corneal abrasion, right Coronary artery disease Degenerative scoliosis Dehydration DNR (do not resuscitate) Elevated troponin Encounter for pre-operative cardiovascular clearance Facet arthritis, degenerative, lumbar spine Fluid overload Generalized weakness History of NM (myocardial infarction) 2017--had coronary artery stent placed Hypertension Hypertensive urgency Hypo-osmolar hyponatremia Serum osmolarity 255, urine osmolality 288, urine sodium 73, hypervolemic hyponatremia Hypoxia Ischemic cardiomyopathy Lumbar stenosis with neurogenic claudication Malaise and fatigue Nausea No pertinent past medical history Denies diabetes, asthma, seizures, DVT/PE PCP: Dr. Bui Peripheral neuropathy Pneumonia Right lower lobe pneumonia Uncontrolled hypertension Vaginal prolapse 09/30/2021--grade 3-4 cystocele, grade 3 vault prolapse, grade 1 rectocele Surgical History H/O vaginal surgery 11/25/2021- colpocleisis, SIS and cystoscopy on 11/25/2021 History of back surgery March 2021--performed by Dr. Nunez at [facility] [place]. History of heart artery stent 2018 after heart attack History of tubal ligation In her mid 30s---done through supra umbilical minilaparotomy incision S/P hysterectomy Vaginal hysterectomy for prolapse performed by Dr. George in 2018. Her ovaries were not removed. Family History Mother Heart disease Hypertension Colon cancer diagnosed in her late 60s Daughter Heart disease Family/Other Breast cancer maternal aunt, age at diagnosis unknown Social History Smoking and tobacco status: never smoked Alcohol intake: never Substance/Drug Use: never Vitals/I&O/Wt Last Vital Signs Temp 97.8 F 11/21/22 20:30 Pulse 53 L 11/22/22 10:00 Resp 22 H 11/22/22 10:00 BP 120/41 11/22/22 10:00 Pulse Ox 90 11/22/22 08:30 O2 Del Method Nasal Cannula 11/22/22 08:10 O2 Flow Rate 1 11/22/22 08:10 FiO2 30 11/18/22 16:00 11/21/22 11/22/22 11/22/22 22:59 06:59 14:59 Intake Total 310 / 430 Output Total 0 / 0 Balance 310 / 430 0 / 430 Weight last 48 hrs Weight 169 lb 2 oz Physical Exam Const: GENERAL APPEARANCE: frail appearing; not in distress Chest: OTHER: Skin intact on upper chest with no lesions or rashes. Resp: COMMON NORMALS: normal respiratory effort and clear to auscultation bilaterally AUSCULTATION: clear to auscultation bilaterally Cardio: COMMON NORMALS: regular rate and regular rhythm RATE: regular rate RHYTHM: regular rhythm Extremity: GENERAL: Yes edema Urinary Catheter Management: Lim: Cath Placed During This Visit: yes, but has since been removed by the nurse Reason for Continuing Indwelling Catheter: Accurate Measurement of Urinary Output in Critically Ill Patients Urinary Catheter Date of Insertion: 11/07/22 Urinary Catheter Time of Insertion: 19:00 Date Urinary Catheter Removed: 11/21/22 Time Urinary Catheter Discontinued: 14:00 Data 11/22/22 07:28 11/22/22 07:28 A&P Assessment and plan (1) Acute kidney injury: Acute renal failure with need for tunneled dialysis catheter. I discussed with the patient and her grandson at bedside the need for a tunneled catheter for ongoing dialysis and minimizing infection risk. She understands that the risk of bleeding is higher on the antiplatelet therapy, but that the risk of stent thrombosis is higher. All questions were answered to her satisfaction. She would like to proceed with catheter placement. Plan left internal jugular access if possible. Coding Level of Care Code Acute Code for [facility] Fwd Diagnoses Acute kidney injury N17.9
[2022-11-22] MEDS: heparin, porcine 1,000 unit/mL INJ 10 mL 1000 UNIT IV (11:24)
[2022-11-22] MEDS: ipratropium-albuterol 3 mL Neb INHALATION ×2 (13:30→20:46)
[2022-11-22] MEDS: lidocaine 4% cream 5 gm 1 APPLIC TOPICAL (14:07)
[2022-11-22] MEDS: iron sucrose 200 MG in sodium chloride 0.9% (100 ml) 100 ML 220 MG IV (14:14)
--- NOTE | 2022-11-22 16:39 | PC.HD ---
Bed scale was zeroed with pt in it so pretreatment weight is 0. Post treatment weight negative 6.6#, loss of 3kg.
--- NOTE | 2022-11-22 17:41 | PM.PN ---
Subjective Subjective: Hospital course, labs appreciated. Today morning seen with family at bedside. Patient getting hemodialysis. Denies any nausea, vomiting, headache. As per family patient's oral intake is pretty poor and only limited to protein shakes for now. Patient states food does not taste well. Patient seems lethargic. Has remained hemodynamically stable. Currently on 1 to 2 L of oxygen supplementation saturating more than 95%. Denies any chest pain. Vitals/I&O/Wt Last Vital Signs Temp 98.6 F 11/22/22 16:17 Pulse 62 11/22/22 16:30 Resp 22 H 11/22/22 16:30 BP 168/55 11/22/22 16:30 Pulse Ox 97 11/22/22 16:00 O2 Del Method Nasal Cannula 11/22/22 13:30 O2 Flow Rate 3 11/22/22 13:30 FiO2 30 11/18/22 16:00 11/22/22 11/22/22 11/22/22 06:59 14:59 22:59 Intake Total 500 / 500 Output Total 0 / 0 2665 / 2665 Balance 0 / 430 -2165 / -2165 Weight last 48 hrs Weight 0 g Weight 76.714 kg Physical Exam Narrative: General: Patient is frail. Chronically sick appearing, anxious, at start was having difficulty in breathing which improved after being on BiPAP. Head: Temporal wasting. Neck: No JVD. Cardiovascular: No gallops. No murmurs. 3-4+ pitting edema bilaterally. Lungs: Adequate air movement. No wheezing. No Crackles. Skin: No jaundice. No rashes. Abdomen: Normal bowel sounds, abdomen soft and nontender. Genito Urinary: Genital exam not performed since complaints not related. Rectal: Rectal exam not performed since no symptoms indicated blood loss. Extremities: No cyanosis or clubbing. Musculoskeletal: No overt joint deformity. Neurological: Moves all 4 extremities. No myoclonus. Urinary Catheter Management: Lim: Cath Placed During This Visit: yes, but has since been removed by the nurse Reason for Continuing Indwelling Catheter: Accurate Measurement of Urinary Output in Critically Ill Patients Urinary Catheter Date of Insertion: 11/07/22 Urinary Catheter Time of Insertion: 19:00 Date Urinary Catheter Removed: 11/21/22 Time Urinary Catheter Discontinued: 14:00 Data 11/22/22 07:28 11/22/22 07:28 A&P Assessment and plan (1) NSTEMI (non-ST elevated myocardial infarction): Echocardiogram repeated showed an EF of 28% with LV cavity, moderate LA size and mild RA size increased, mild MR. S/p PCI to left main Appreciate cardiology recommendations. Continue with aspirin, Plavix, statin. Imdur and beta-candice has been resumed as the blood pressure is significantly improved (2) Left main coronary artery disease: (3) Chronic renal insufficiency: DAXA on CKD: Likely secondary to JEANNINE, CRS: Progressed to likely acute renal failure. Appreciate nephrology recommendations. Patient will most likely need dialysis going forward at least for short while. Currently has temporary dialysis catheter in groin. Plan for tunneled catheter placement. We will consult surgery. Case management alerted for chair time as an outpatient. (4) Cardiogenic shock: Initially during hospital stay patient was in cardiogenic shock: Currently it has resolved: Maintaining good perfusion, has no JVD, extremities are, warm, not on any inotropic support.She is off Levophed. Cardiogenic shock was attributed to NSTEMI. (5) Atrial fibrillation with RVR: Has converted to sinus rhythm. Switch to amiodarone 200 mg oral daily. Slight bradycardia currently. Decrease dose of metoprolol to 12.5 mg twice daily. Patient was on therapeutic anticoagulation with Lovenox, currently on hold, due to high risk of bleeding. Long-term therapeutic anticoagulation, possibly could be avoided, given her age and risk of bleeding, and she also being on aspirin and Plavix for now. (6) Heart failure: Decompensated heart failure with reduced ejection fraction. Currently on dialysis given DAXA secondary to JEANNINE. Monitor intake output charting Daily weight Monitor electrolytes, keep potassium greater than 4, magnesium greater than 2 Telemetry monitoring (7) Respiratory failure with hypoxia and hypercapnia: Resolved. Patient back to baseline oxygen supplementation. D-dimer elevated 3.4. After age-related modification within normal limits. CT chest results appreciated. Concerns for bilateral pleural effusion with possible atelectasis and mild pneumonia. Respiratory viral panel negative. Sputum culture awaited. MRSA recently negative. Given critically illness for now start patient on IV Zosyn empirically. We will try to finish a 5-day course. Continue with DuoNebs every 6 hour, budesonide twice daily. Oxygen supplementation keeping saturation over 90%. (8) Chronic hyponatremia: Acute on chronic hyponatremia. Baseline sodium seems to be around 1 28-1 30. Currently stable around 127. Continue to monitor daily. Sodium tablets have been discontinued. We will continue to monitor. (9) Hypertension: Goal blood pressure less than 140/90 mmHg. Patient states usually blood pressures have been running around 170 for many years. Reluctant to increase antihypertensives too much. States on increasing medication she becomes very sleepy and tired. Multiple antihypertensives at home. Takes clonidine 0.1 twice daily, felodipine 10 mg oral every afternoon, hydralazine 25 mg 3 times daily, Imdur 60 mg oral daily, valsartan 160 mg twice daily. For now restarting Imdur 60 mg, metoprolol 12.5 mg twice daily, hydralazine 25 mg 3 times daily. Will uptitrate accordingly. Qualifiers: Hypertension type: essential hypertension Qualified Code(s): I10 - Essential (primary) hypertension (10) Hyperkalemia: Resolved Hold off on home dose potassium. Continue to monitor daily. (11) Coronary artery disease: Qualifiers: Coronary Disease-Associated Artery/Lesion type: [place] artery [place] vs. transplanted heart: [place] heart Associated angina: without angina Qualified Code(s): I25.10 - Atherosclerotic heart disease of [place] coronary artery without angina pectoris (12) Goals of care, counseling/discussion: (13) Anemia: Monitor H&H Transfuse to maintain hemoglobin greater than 7 Currently on IV iron. Plan DVT ppx: On subcu heparin CODE STATUS full code Continue with cardiac diet. N.p.o. after midnight for tunnel catheter placement. Protonix for PUD prophylaxis. Discharge plan: Plan to discharge within next 24 to 48 hours if remained hemodynamically stable after tunnel catheter has been placed and chair time outpatient has been set up. Case management alerted. Plan to discharge to SNF. Transfer to [facility]. Attestations Medical Necessity Statement*: Requires further hospitalization for management of DAXA secondary to JEANNINE in a patient with left main disease post stenting, congestive heart failure with severe low EF, atrial fibrillation with paroxysmal rapid ventricular response while safe discharge planning is sought. Diagnoses NSTEMI (non-ST elevated myocardial infarction) I21.4 Left main coronary artery disease I25.10 Chronic renal insufficiency N18.9 Cardiogenic shock R57.0 Atrial fibrillation with RVR I48.91 Heart failure I50.9 Respiratory failure with hypoxia and hypercapnia J96.91; J96.92 Chronic hyponatremia E87.1 Hypertension I10 Hypertension type: essential hypertension Hyperkalemia E87.5 Coronary artery disease I25.10 Coronary Disease-Associated Artery/Lesion type: [place] artery [place] vs. transplanted heart: [place] heart Associated angina: without angina Goals of care, counseling/discussion Z71.89 Anemia D64.9
--- NOTE | 2022-11-22 18:05 | PC.NURSE ---
Patients daughter has requested that the patient get pain medication multiple times this shift. When this nurse enters room the patient is asleep but when I wake her up and ask her of she is in pain she states yes. PRN medication given.
--- NOTE | 2022-11-22 20:06 | PC.NURSE ---
Refusing Medication: Nurse entered room to give night medications. Pt is refusing to take medications until her daughter is present. Nurse questioned why the pt's daughter needed to be present, pt stated for support . Daughter left the until earlier in shift. Will attempt to give medications later.
[2022-11-22] MEDS: atorvastatin 40 mg Tablet PO (20:36)
[2022-11-23] VITALS (29 sets, daily range): BP systolic 126–170; BP diastolic 42–100; PULSE 51–80; RESP 10–24; TEMP 35.9–37.2; O2SAT 95–100
[2022-11-23] MEDS: HYDROcodone-acetaminophen 5-325 mg Tablet 2 TAB PO ×2 (00:14→08:23)
[2022-11-23] MEDS: lidocaine 4% cream 5 gm 1 APPLIC TOPICAL (03:10)
[2022-11-23 03:51] LABS: Basophils % 0.2 %; Eosinophils # 0.1 10^3/uL (0.0-0.8); Eosinophils % 0.5 %; Hematocrit 24.9 % (37.0-47.0); Hemoglobin 7.3 g/dL (11.5-15.3); Lymphocytes # 0.8 10^3/uL (0.8-4.8); Mean Corpuscular HGB Conc 29.3 g/dL (30.0-36.0); Mean Corpuscular Hemoglobin 30.7 pg (28.0-34.0); Mean Corpuscular Volume 104.6 fl (81-99); Mean Platelet Volume 10.4 fL (7.4-10.4); Monocytes % 7.5 %; Neutrophils # 11.36 10^3/uL (1.8-7.7); Neutrophils % 83.1 %; Nucleated Red Blood Cells # 0.1 /100WBC; Nucleated Red Blood Cells % 0.9 %; Platelet Count 474 10^3/cmm (130-400); Red Blood Count 2.38 10^6/uL (4.1-5.3); Red Cell Distribution Width 15.9 % (12.1-15.1); White Blood Count 13.7 10^3/uL (4.0-10.0)
[2022-11-23 04:15] LABS: Alanine Aminotransferase 10 U/L (0-33); Albumin Level 2.8 g/dL (3.5-5.2); Alkaline Phosphatase 97 U/L (35-105); Anion Gap 10.7 (5-19); Aspartate Amino Transferase 16 U/L (0-32); Blood Urea Nitrogen 18 mg/dL (8-23); Calcium 7.5 mg/dL (8.5-10.5); Carbon Dioxide 27 mmol/L (22-29); Chloride 98 mmol/L (98-107); Creatinine Clr Calc Pharmacy 0; Glucose 107 mg/dL (65-115); Osmolality Calculated 276 mOsm/kg (285-295); Potassium 3.7 mmol/L (3.5-5.1); Sodium 132 mmol/L (136-145); Total Bilirubin 0.3 mg/dL (0.15-1.2); Total Protein 5.8 g/dL (6.6-8.7)
--- NOTE | 2022-11-23 04:34 | PC.NURSE ---
Dr. Meeks notified of pt's NPO status for surgery and levothyroxine order for 0500, New order to non-admin levothyroxine.
--- NOTE | 2022-11-23 06:48 | SC_ITS ---
WS: [id number] Exam: C-arm FL for CVA [id number] Date/Time of Exam: 11/23/2022 6:48 AM Reason For Exam: dialysis placement 3 anterior posterior Limited C-arm images of the upper chest are submitted. The images depict a double lumen left-sided subclavian catheter appearing to extend into the lower on e third of the SVC. Radiographic contrast has been injected to confirm catheter position.
--- NOTE | 2022-11-23 06:53 | ANES.PREANE2 ---
Pre-Anesthetic Assessment Height/Weight: Height 1.55 m Weight 0 g Temp Pulse Resp BP Pulse Ox O2 Del Method O2 Flow Rate 98.9 F 59 L 14 140/46 96 Nasal Cannula 3 11/22/22 21:00 11/23/22 06:00 11/23/22 06:00 11/23/22 06:00 11/23/22 04:00 11/23/22 04:00 11/23/22 04:00 FiO2 30 11/18/22 16:00 Preop Diagnosis: NSTEMI/LV dysfunction/ severe stenosis of left main artery Operation Date: 11/12/22 12:00 Proposed Procedures p Cardiac Catheterization(Left) - Susan Marquez MD Operation Date: 11/14/22 08:00 Proposed Procedures p Cardiac Catheterization(Not Applicable) - Edson Ahumada M.D Operation Date: 11/15/22 08:30 Proposed Procedures p Percutaneous Coronary Intervention of the left main artery(Left) - Edson Ahumada M.D Operation Date: 11/23/22 08:00 Proposed Procedures p Dialysis Catheter Insertion(Not Applicable) - Denita Powell MD Familial anesthetic complications: None Was Beta Gino taken within 24 hours: N/A Was Clonidine taken within 24 hours: N/A Last intake: Water at midnight yogurt at 11:30 pm Social No alcohol and No tobacco Exam alert, oriented x 3, clear to auscultation bilaterally and regular rate & rhythm Diminished breath sounds Airway Mallampati: Class III Dentition: full Pulmonary Pneumonia in september, now on nasal cannula CV/HEM Atrial Fibrillation, Anemia, Coronary Artery Disease, Congestive Heart Failure, Hypertension and Myocardial Infarction (STEMI w/ stents this hospitalization on plavix) Echo 11/16 CONCLUSIONS ?Diffuse hypokinesia of the left ventricle with a diminished ?ejection fraction of around 28%. ?? Mildly dilated LV cavity. ?Moderately increased left atrial size. ?Mildly increased right atrial size. ?Thickened mitral valve. Mild mitral valve regurgitation. ?Thickened? and stenotic aortic valve. ?There is no pericardial effusion. ?There are no intracardiac masses. ?Technically somewhat difficult study ?Compared to the study from 10/30/2022, there is significant drop ?in the LV ejection fraction DAXA on CKD Anesthetic Plan ASA status: 4 Anesthesia: MAC Risk of > 500 ml blood loss (7ml/kg in children): No Medications/Allergies Home Medications Medication Instructions Recorded Confirmed Last Taken Type hydrocodone 10 mg-acetaminophen 1 tab PO Q4H PRN Pain 30 days #180 09/27/22 11/07/22 11/07/22 Rx 325 mg tablet tabs felodipine 10 mg tablet,extended 10 mg PO DAILY@08 10/08/22 11/07/22 11/07/22 History release 24 hr gabapentin 100 mg capsule 100 mg PO BID 10/08/22 11/07/22 11/07/22 History tamsulosin 0.4 mg capsule 0.4 mg PO BID 10/08/22 11/07/22 11/07/22 History albuterol sulfate 90 mcg/actuation 1 inh inhalation Q6H PRN shortness 10/10/22 11/07/22 Unknown Rx aerosol inhaler of breath or wheezing #8.5 grams ondansetron HCl 4 mg tablet 4 mg PO Q6H PRN nausea and 10/14/22 11/07/22 Unknown Rx vomiting #30 tabs benzonatate 100 mg capsule 100 mg PO TID PRN Cough 10/16/22 11/07/22 Unknown History clonidine HCl 0.1 mg tablet 0.1 mg PO BID #60 tabs 10/27/22 11/07/22 11/07/22 Rx hydralazine 25 mg tablet 25 mg PO TID #90 tabs 10/27/22 11/07/22 11/07/22 Rx lactulose 10 gram/15 mL (15 mL) 10 g (15 mL) PO DAILY PRN 10/29/22 11/07/22 Unknown Rx oral solution constipation #473 mL acetaminophen 325 mg tablet 650 mg PO Q6H PRN Pain 11/07/22 11/07/22 Unknown History (Tylenol) bisacodyl 10 mg rectal suppository 10 mg IA DAILY PRN Constipation 11/07/22 11/07/22 Unknown History (Dulcolax (bisacodyl)) bisacodyl 5 mg tablet,delayed 10 mg PO DAILY PRN Constipation 11/07/22 11/07/22 Unknown History release (Dulcolax (bisacodyl)) furosemide 20 mg tablet 20 mg PO DAILY@11/07/22 11/07/22 11/07/22 History isosorbide mononitrate 60 mg 60 mg PO DAILY@08 0511/07/22 11/07/22 History tablet,extended release 24 hr levothyroxine 88 mcg tablet 88 mcg PO DAILY@11/07/22 11/07/22 11/07/22 History magnesium hydroxide 400 mg/5 mL 30 ml PO .EVERY 72 HOURS PRN if no 11/07/22 11/07/22 Unknown History oral suspension (Milk of Magnesia) bm in 3 days *do not give to renal pts* magnesium oxide 400 mg (241.3 mg 400 mg PO BID 11/07/22 11/07/22 11/07/22 History magnesium) tablet menthol 0.44 %-zinc oxide 20.6 % See Rx Instructions .Route .COMPLEX 11/07/22 11/07/22 11/07/22 History topical ointment (Calmoseptine) potassium chloride 20 mEq 20 meq PO DAILY@08 11/07/22 11/07/22 11/07/22 History tablet,extended release(part/cryst) (Klor-Con M) sodium phosphates 19 gram-7 118 ml IA DAILY PRN Constipation 11/07/22 11/07/22 Unknown History gram/118 mL enema (Fleet Enema) valsartan 160 mg tablet 160 mg PO BID 11/07/22 11/07/22 11/07/22 History Allergies Allergy/AdvReac Type Severity Reaction Status Date / Time prazosin Allergy Severe ALGY-Difficulty Verified 11/07/22 12:55 Breathing Current Medications Generic Name Dose Route Start Last Admin Trade Name Freq PRN Reason Stop Dose Admin Hydrocodone Bitart/Acetaminophen 2 tab 11/22/22 10:05 11/23/22 00:14 Hydrocodone-Acetaminophen 5-325 Mg Tablet PO 2 tab Q6H PRN Administration MODERATE PAIN Albuterol/Ipratropium 3 ml 11/18/22 09:07 11/22/22 20:46 Ipratropium-Albuterol 3 Ml Neb INHALATION 3 ml QID.RESPIRATORY PRN Administration SHORTNESS OF BREATH Aspirin 81 mg 11/11/22 09:00 11/22/22 08:12 Aspirin 81 Mg Chew Tablet PO 81 mg DAILY IMMANUEL Administration Atorvastatin Calcium 40 mg 11/10/22 21:00 11/22/22 20:36 Atorvastatin 40 Mg Tablet PO 40 mg BEDTIME IMMANUEL Administration Bisacodyl 10 mg 11/07/22 17:16 11/11/22 13:56 Bisacodyl 5 Mg Tablet PO 10 mg DAILY PRN Administration Constipation Budesonide 0.5 mg 11/10/22 20:00 11/22/22 20:46 Budesonide 0.5 Mg/2 Ml Neb INHALATION 0.5 mg BID.RESPIRATORY IMMANUEL Administration Citalopram Hydrobromide 10 mg 11/13/22 09:00 11/22/22 08:13 Citalopram 20 Mg Tablet PO 10 mg DAILY IMMANUEL Administration Clopidogrel Bisulfate 75 mg 11/11/22 09:00 11/22/22 08:12 Clopidogrel 75 Mg Tablet PO 75 mg DAILY IMMANUEL Administration Enoxaparin Sodium 70 mg 11/16/22 21:00 11/17/22 20:06 Enoxaparin 80 Mg/0.8 Ml Syringe SUBCUT 70 mg Q24H IMMANUEL Administration Gabapentin 100 mg 11/07/22 18:00 11/22/22 18:07 Gabapentin 100 Mg Capsule PO 100 mg BID IMMANUEL Administration Heparin Sodium (Porcine) 5,000 unit 11/19/22 19:00 11/23/22 06:38 Heparin 5,000 Unit/Ml Inj 1 Ml SUBCUT Not Given Q12H [facility] Hydralazine HCl 25 mg 11/20/22 15:00 11/22/22 20:36 Hydralazine 25 Mg Tablet PO 25 mg TID IMMANUEL Administration Iron Sucrose 200 mg/ Sodium 110 mls @ 220 mls/hr 11/19/22 14:00 11/22/22 18:02 Chloride IV 11/23/22 14:29 Infused Q24H [facility] Infusion Epoetin Gm 10,000 unit/ N/A 0.5 mls @ 0 mls/hr 11/22/22 06:00 11/22/22 19:00 IVP Infused ONCE [facility] Infusion As Directed Isosorbide Mononitrate 60 mg 11/17/22 09:00 11/22/22 08:12 Isosorbide Mononitrate Er 60 Mg Tablet PO 60 mg DAILY IMMANUEL Administration Levothyroxine Sodium 88 mcg 11/08/22 05:00 11/23/22 04:37 Levothyroxine 88 Mcg Tablet PO Not Given DAILY@05 [facility] Lidocaine 1 patch 11/15/22 21:00 11/22/22 21:51 Lidocaine 5% Patch TOPICAL Not Given [id number] [facility] Lidocaine 1 applic 11/16/22 16:19 11/23/22 03:10 Lidocaine 4% Cream 5 Gm TOPICAL 1 applic QID PRN Administration DISCOMFORT Magnesium Hydroxide 30 ml 11/11/22 16:56 11/11/22 17:08 Magnesium Hydroxide 30 Ml Udc PO 30 ml DAILY PRN Administration CONSTIPATION Tamsulosin HCl 0.4 mg 11/14/22 09:00 11/22/22 08:13 Tamsulosin 0.4 Mg Capsule PO 0.4 mg DAILY IMMANUEL Administration Additional Medication Information Generic Name Dose Route Start Last Admin Trade Name Freq PRN Reason Stop Dose Admin Hydrocodone Bitart/Acetaminophen 1 tab 11/20/22 07:40 11/21/22 09:05 Hydrocodone-Acetaminophen 5-325 Mg Tablet PO 1 tab Q4H PRN Administration MODERATE PAIN Albuterol/Ipratropium 3 ml 11/18/22 09:07 11/21/22 08:29 Ipratropium-Albuterol 3 Ml Neb INHALATION 3 ml QID.RESPIRATORY PRN Administration SHORTNESS OF BREATH Amiodarone HCl 400 mg 11/19/22 09:00 11/21/22 08:06 Amiodarone 200 Mg Tablet PO 400 mg DAILY IMMANUEL Administration Aspirin 81 mg 11/11/22 09:00 11/21/22 08:06 Aspirin 81 Mg Chew Tablet PO 81 mg DAILY IMMANUEL Administration Atorvastatin Calcium 40 mg 11/10/22 21:00 11/20/22 20:30 Atorvastatin 40 Mg Tablet PO 40 mg BEDTIME IMMANUEL Administration Bisacodyl 10 mg 11/07/22 17:16 11/11/22 13:56 Bisacodyl 5 Mg Tablet PO 10 mg DAILY PRN Administration Constipation Budesonide 0.5 mg 11/10/22 20:00 11/21/22 08:29 Budesonide 0.5 Mg/2 Ml Neb INHALATION 0.5 mg BID.RESPIRATORY IMMANUEL Administration Citalopram Hydrobromide 10 mg 11/13/22 09:00 11/21/22 08:06 Citalopram 20 Mg Tablet PO 10 mg DAILY IMMANUEL Administration Clopidogrel Bisulfate 75 mg 11/11/22 09:00 11/21/22 08:06 Clopidogrel 75 Mg Tablet PO 75 mg DAILY IMMANUEL Administration Enoxaparin Sodium 70 mg 11/16/22 21:00 11/17/22 20:06 Enoxaparin 80 Mg/0.8 Ml Syringe SUBCUT 70 mg Q24H IMMANUEL Administration Furosemide 40 mg 11/17/22 08:00 11/21/22 08:06 Furosemide 10 Mg/Ml Sdv 4ml IVP 40 mg Q24H IMMANUEL Administration Gabapentin 100 mg 11/07/22 18:00 11/21/22 08:06 Gabapentin 100 Mg Capsule PO 100 mg BID IMMANUEL Administration Heparin Sodium (Porcine) 5,000 unit 11/19/22 19:00 11/21/22 05:48 Heparin 5,000 Unit/Ml Inj 1 Ml SUBCUT 5,000 unit Q12H IMMANUEL Administration Hydralazine HCl 25 mg 11/20/22 15:00 11/21/22 15:26 Hydralazine 25 Mg Tablet PO 25 mg TID IMMANUEL Administration Iron Sucrose 200 mg/ Sodium 110 mls @ 220 mls/hr 11/19/22 14:00 11/21/22 15:17 Chloride IV 11/23/22 14:29 220 mls/hr Q24H IMMANUEL Administration Isosorbide Mononitrate 60 mg 11/17/22 09:00 11/21/22 08:06 Isosorbide Mononitrate Er 60 Mg Tablet PO 60 mg DAILY IMMANUEL Administration Levothyroxine Sodium 88 mcg 11/08/22 05:00 11/21/22 05:48 Levothyroxine 88 Mcg Tablet PO 88 mcg DAILY@05 IMMANUEL Administration Lidocaine 1 patch 11/15/22 21:00 11/21/22 08:07 Lidocaine 5% Patch TOPICAL 1 patch [id number] IMMANUEL Administration Magnesium Hydroxide 30 ml 11/11/22 16:56 11/11/22 17:08 Magnesium Hydroxide 30 Ml Udc PO 30 ml DAILY PRN Administration CONSTIPATION Metoprolol Tartrate 25 mg 11/20/22 09:00 11/21/22 08:22 Metoprolol Tartrate 25 Mg Tablet PO 25 mg DAILY IMMANUEL Administration Morphine Sulfate 2 mg 11/18/22 17:25 11/20/22 03:48 Morphine 4 Mg/Ml Sdv 1 Ml IVP 2 mg Q8H PRN Administration SEVERE PAIN Tamsulosin HCl 0.4 mg 11/14/22 09:00 11/21/22 08:06 Tamsulosin 0.4 Mg Capsule PO 0.4 mg DAILY IMMANUEL Administration PFSH Anesthesia Medical History Acute exacerbation of CHF (congestive heart failure) Acute hyponatremia Anemia Aortic stenosis Cervical radiculopathy Chronic hyponatremia Chronic hyponatremia Chronic low back pain Has had recent back surgery Chronic respiratory failure with hypoxia Community acquired pneumonia Congestive heart failure Corneal abrasion, right Coronary artery disease Degenerative scoliosis Dehydration DNR (do not resuscitate) Elevated troponin Encounter for pre-operative cardiovascular clearance Facet arthritis, degenerative, lumbar spine Fluid overload Generalized weakness History of DC (myocardial infarction) 2018--had coronary artery stent placed Hypertension Hypertensive urgency Hypo-osmolar hyponatremia Serum osmolarity 255, urine osmolality 288, urine sodium 73, hypervolemic hyponatremia Hypoxia Ischemic cardiomyopathy Lumbar stenosis with neurogenic claudication Malaise and fatigue Nausea No pertinent past medical history Denies diabetes, asthma, seizures, DVT/PE PCP: Dr. Bui Peripheral neuropathy Pneumonia Right lower lobe pneumonia Uncontrolled hypertension Vaginal prolapse 09/30/2021--grade 3-4 cystocele, grade 3 vault prolapse, grade 1 rectocele Surgical History H/O vaginal surgery 11/25/2021- colpocleisis, SIS and cystoscopy on 11/25/2021 History of back surgery March 2021--performed by Dr. Nunez at [facility] [place]. History of heart artery stent 2018 after heart attack History of tubal ligation In her mid 30s---done through supra umbilical minilaparotomy incision S/P hysterectomy Vaginal hysterectomy for prolapse performed by Dr. George in 2018. Her ovaries were not removed. Family History Mother Heart disease Hypertension Colon cancer diagnosed in her late 60s Daughter Heart disease Family/Other Breast cancer maternal aunt, age at diagnosis unknown Social History Smoking and tobacco status: never smoked Alcohol intake: never Substance/Drug Use: never Data Anesthesia 11/23/22 02:56 11/23/22 02:56 Short CBC 11/22/22 11/22/22 11/23/22 Range/Units 02:17 07:28 02:56 WBC 10.2 H 12.1 H 13.7 H (4.0-10.0) 10^3/uL Hgb 7.3 L 7.5 L 7.3 L (11.5-15.3) g/dL Hct 24.8 L 25.1 L 24.9 L (37.0-47.0) % MCV 102.9 H 102.9 H 104.6 H (81-99) fl Plt Count 485 H 498 H 474 H (130-400) 10^3/cmm Neut % (Auto) 83.7 82.3 83.1 % Neut # (Auto) 8.57 H 9.96 H 11.36 H (1.8-7.7) 10^3/uL BMP 11/22/22 11/22/22 11/23/22 02:17 07:28 02:56 Sodium 129 L 127 L 132 L Potassium 4.2 4.0 3.7 Chloride 94 L 93 L 98 Carbon Dioxide 25 27 27 BUN 32 H 32 H 18 Creatinine 2.5 H 2.7 H 1.9 H Glucose 96 109 107 Calcium 8.0 L 8.0 L 7.5 L Liver Function 11/22/22 11/22/22 11/23/22 Range/Units 02:17 07:28 02:56 Total Bilirubin 0.3 0.3 0.3 (0.15-1.2) mg/dL AST 19 16 16 (0-32) U/L ALT 11 11 10 (0-33) U/L Alkaline Phosphatase 99 106 H 97 (35-105) U/L Albumin 2.8 L 2.8 L 2.8 L (3.5-5.2) g/dL Coags 11/22/22 07:28 PT 15.00 H INR 1.14 APTT 43.6 H Cardiac Studies: Echocardiogram 10/30/22 Echocardiogram Limited Views 11/10/22 Sestamibi Stress Test (Cardiology) 03/10/21
[2022-11-23] MEDS: gabapentin 100 mg Capsule PO ×2 (08:29→18:40)
[2022-11-23] MEDS: citalopram 20 mg Tablet 10 MG PO (08:29)
[2022-11-23] MEDS: tamsulosin 0.4 mg Capsule PO (08:29)
[2022-11-23] MEDS: hyDRALAzine 25 mg Tablet PO ×2 (08:29→20:06)
[2022-11-23] MEDS: clopidogrel 75 mg Tablet PO (08:29)
[2022-11-23] MEDS: amiodarone 200 mg Tablet PO (08:30)
[2022-11-23] MEDS: metoprolol tartrate 25 mg Tablet 12.5 MG PO ×2 (08:30→20:06)
[2022-11-23] MEDS: aspirin 81 mg Chew Tablet PO (08:30)
[2022-11-23] MEDS: isosorbide mononitrate ER 60 mg Tablet PO (08:32)
--- NOTE | 2022-11-23 08:41 | PC.OT ---
OT TREATMENT HELD THIS DATE DUE TO PATIENT SURGERY TODAY.
[2022-11-23] MEDS: budesonide 0.5 mg/2 mL Neb INHALATION ×2 (08:57→19:51)
--- NOTE | 2022-11-23 09:29 | PC.SOCIAL ---
IMM update IMM updated with patient and family at bedside. Copy Pg 2 provided. Verbalized an understanding. Initialled, dated, timed, and placed in chart.
[2022-11-23] MEDS: lidocaine 5% Patch 1 PATCH TOPICAL (10:40)
[2022-11-23] MEDS: ceFAZolin 1,000 mg SDV 2000 MG IVP (11:29)
[2022-11-23] MEDS: lidocaine-epi 1% 20 mL INJ INJECTION (11:39)
--- NOTE | 2022-11-23 12:33 | PM.PN ---
Subjective Subjective: s/p insertion of tunnel catheter No events on telemetry Medications: Reviewed: Yes Vitals/I&O/Wt Last Vital Signs Temp 98.7 F 11/23/22 10:04 Pulse 61 11/23/22 10:04 Resp 18 11/23/22 10:04 BP 145/55 11/23/22 10:04 Pulse Ox 98 11/23/22 10:04 O2 Del Method Nasal Cannula 11/23/22 08:00 O2 Flow Rate 3 11/23/22 08:00 FiO2 30 11/18/22 16:00 11/22/22 11/23/22 11/23/22 22:59 06:59 14:59 Intake Total 1220.5 / 1220.5 60 / 60 Output Total 2665 / 2665 0 / 2665 Balance -1444.5 / -1444.5 0 / -1444.5 60 / 60 Weight last 48 hrs Weight 0 oz Physical Exam Const: COMMON NORMALS: no acute distress GENERAL APPEARANCE: cooperative, comfortable, well kempt and well hydrated HENMT: COMMON NORMALS: hearing grossly normal bilaterally, external ears normal and moist oral mucous membranes FACE & SINUS: normal facial exam EXTERNAL EAR: Yes external ears normal Eye: COMMON NORMALS: EOMs intact bilaterally and no scleral icterus GENERAL EYE: appearance normal, both eyes and all related structures ALIGNMENT: Yes alignment normal Neck/C-Spine: COMMON NORMALS: supple and no JVD GENERAL: Yes normal visual inspection CAROTIDS: Yes normal carotid upstroke Chest: COMMONS NORMALS: normal inspection of the chest and normal palpation of entire chest wall CHEST: Yes Symmetrical chest wall rise OTHER: left upper chest dialysis catheter +, Resp: COMMON NORMALS: clear to auscultation bilaterally AUSCULTATION: clear to auscultation bilaterally, no crackles, no rales, no rhonchi and no wheezes OTHER: decreased breath sounds at bases Cardio: COMMON NORMALS: no JVD, regular rate (bradycardia+), regular rhythm, S1 normal heart sound present, S2 normal heart sound present and Peripheral pulses 2+ throughout PALPATION: normal PMI RATE: regular rate (bradycardia+) RHYTHM: regular rhythm HEART SOUNDS: S1 normal heart sound present, S2 normal heart sound present, no gallops and no murmurs BRUITS: no carotid bruits PERIPHERAL PULSES: Peripheral pulses 2+ throughout, radial pulses present, posterior tibial pulses present and dorsalis pedis present GI: COMMON NORMALS: Soft to palpation AUSCULTATION: Yes normoactive bowel sounds PALPATION: Yes Soft to palpation, No Tenderness to palpation present (GI), No Guarding due to palpation present (GI) and No Rigid due to palpation Extremity: GENERAL: No cyanosis, Yes edema (2+ edema bilateral) and No pallor Neuro: COMMON NORMALS: no focal motor deficits Psych: COMMON NORMALS: Normal thought process present and speech normal APPEARANCE: Yes well kempt SPEECH: Yes normal speech MOOD & AFFECT: Yes euthymic mood THOUGHT PROCESS: Normal thought process present THOUGHT CONTENT: Yes Normal thought content present Urinary Catheter Management: Lim: Cath Placed During This Visit: yes, but has since been removed by the nurse Reason for Continuing Indwelling Catheter: Accurate Measurement of Urinary Output in Critically Ill Patients Urinary Catheter Date of Insertion: 11/07/22 Urinary Catheter Time of Insertion: 19:00 Date Urinary Catheter Removed: 11/21/22 Time Urinary Catheter Discontinued: 14:00 Data 11/23/22 02:56 11/23/22 02:56 A&P Assessment and plan (1) NSTEMI (non-ST elevated myocardial infarction): Patient is status post successful revascularization of left main artery with EDUARDO x2. Continue aspirin, Plavix, statin and metoprolol and statin. continue metoprolol 12.5mg BID - s/p hemodialysis yesterday with removal of 2600 cc; plan for dilaysis again tomorrow -No recurrent chest pain. (2) Coronary artery disease: see above Qualifiers: Associated angina: without angina Coronary Disease-Associated Artery/Lesion type: [place] artery [place] vs. transplanted heart: [place] heart Qualified Code(s): I25.10 - Atherosclerotic heart disease of [place] coronary artery without angina pectoris (3) Dyslipidemia (high LDL; low HDL): (4) Chronic hyponatremia: Plan Paroxysmal Atrial fibrillation: remains in sinus; on amiodarone. lovenox held d/t drop in Hb; based on clinical improvement will start on Eliquis 2.5 mg BID on discharge and d/c ASA CHF: Systolic CHF (LVEF~30%); on valsartan and low dose metoprolol; volume management via dilaysis. DAXA 2/2 JEANNINE: On hemodialysis now HTN: started on hydralazine, ISMN Chronic anemia: s/p 1 upRBC and IV iron infusions Hypothyroidism Advanced age Attestations Medical Necessity Statement*: As per primary team Time Spent in Patient Care: 16 - 35 minutes Coding Level of Care Code 83180 Diagnoses NSTEMI (non-ST elevated myocardial infarction) I21.4 Coronary artery disease I25.10 Associated angina: without angina Coronary Disease-Associated Artery/Lesion type: [place] artery [place] vs. transplanted heart: [place] heart Dyslipidemia (high LDL; low HDL) E78.5 Chronic hyponatremia E87.1
[2022-11-23] MEDS: iohexol 300 mg/mL 50 mL Btl 20 ML IV (13:25)
[2022-11-23] MEDS: heparin, porcine 1,000 unit/mL INJ 10 mL 10000 UNIT INJECTION (13:25)
--- NOTE | 2022-11-23 13:52 | XR_ITS ---
WS: [id number] PORTABLE CHEST HISTORY: line placement COMPARISON: 11/20/2022 Interval placement of a large-bore dialysis catheter. Catheter enters through the LEFT subclavian vei n with tip in distal SVC Significant change in appearance of the chest since 11/20/2022. Increased amount of pulmonary edema an d pleural effusions. Significant LEFT apical lung capping. Moderate to large LEFT effusion has progre ssed. Small RIGHT pleural effusion. Patient is rotated to the RIGHT but there is slight deviation of the trachea to the RIGHT with increasing LEFT paratracheal soft tissue. Increasing consolidation thro ughout the LEFT thorax in part due to compressive atelectasis. Cardiac size: Marked enlargement. Mediastinum/Aorta: Mediastinal widening. No osseous abnormality seen. XR/XR chest 1V portable [id number] IMPRESSION: 1. Interval placement LEFT subclavian dialysis catheter. 2. Increase fluid overload and LEFT pleural effusion with marked LEFT apical c apping and LEFT paratracheal soft tissue with displacement. With recent dialysi s catheter placement possibility of ongoing bleeding should be considered. May all be simply progressive fluid overload from edema. Notified Denita Powell MD at 11/23/2022 2:11 PM.
--- NOTE | 2022-11-23 13:52 | P.OP_ITS ---
Operative Report Date of procedure: November 23, 2022 Pre-op diagnosis: Preop Diagnosis Acute renal failure Post-op diagnosis: Same Procedure done: Insertion of tunneled catheter for hemodialysis Specimens removed/disposition: None Surgeon: Denita Powell MD Anesthesia: MAC Estimated blood loss: 25 mL Complications: None Findings: A 23 cm dual lumen tunneled hemodialysis catheter placed via left internal jugular vein. Arterial (red) port did not aspirate initially. Venogram shot through both ports with opacification of SVC. Both ports then aspirated and flushed freely. Concentrated heparin instilled in both ports to volume indica farnaz on hub prior to capping. Brief History: Kati Chris is an 82-year-old patient status post cardiac stent placement last week and has been undergoing hemodialysis for acute kidney injury. She is now in need of a tunneled hemodialysis catheter. She remains on dual antiplatelet therapy due to the new stent. Procedure: The patient was brought to the operating room and placed on the table in the supine position. Preoperative POCUS of left neck demonstrated patent compressible internal jugular vein. The neck and chest were prepped with ChloraPrep and sterilely draped. Ultrasound probe was draped onto the field. Patient was placed in Trendelenburg. Skin at the identified venipuncture site was infiltrated with 1% lidocaine with epinephrine. A micropuncture needle was used to access the left internal jugular vein under ultrasound guidance. Guidewire threaded but traveled down the left arm initially. It was redirected under fluoroscopy to the SVC. Micropuncture needle was removed and the sheath was passed in Seldinger fashion to upsize to a standard guidewire. The standard guidewire was threaded but persistently followed a path along the left chest and could not be guided to the SVC. This access was therefore not further dilated. Direct pressure was applied for several minutes. There subsequently did not appear to be any evidence of hematoma formation. The left internal jugular vein was then again accessed with the micropuncture needle under ultrasound guidance, and the guidewire was passed to the SVC. Upsizing sheath was again passed in Seldinger fashion, and the standard guidewire was threaded to the SVC under fluoroscopic guidance. The catheter path was then approximated with fluoroscopy to select a satisfactory exit site. Exit site and subcutaneous tissue between it and the venipuncture site was infiltrated with lidocaine. A #15 blade was used to make a small incision. The catheter was connected to the tunneler and passed from the exit site to the venipuncture site without difficulty. The vein was then sequentially dilated in Seldinger fashion, ultimately passing the dilator-sheath device, and the dilator and guidewire were removed. The catheter was then passed down the peel-away sheath. The catheter tended to follow a path down the arm and had to be withdrawn and advanced multiple times to try to redirect it toward the SVC. The catheter ultimately returned and was advanced into the SVC. Direct pressure was required for several minutes to obtain hemostasis. The venous (blue) port aspirated and flushed freely. The arterial (red) port did not aspirate but did flush. Omnipaque was used to obtain a venogram. The SVC opacified with contrast through both ports. Approximately 20 cc contrast was used. Subsequent to the venogram, both ports aspirated and flushed freely. Concentrated heparin was instilled and the catheter was capped. Catheter was secured to the skin with 3-0 nylon. Venipuncture site was closed with Dermabond. A sterile occlusive dressing was applied to the catheter. The patient tolerated the procedure well and was transferred back to the ICU in satisfactory condition. Chest x-ray showed good catheter position in the superior vena cava with left pleural effusion and no pneumothorax.
--- NOTE | 2022-11-23 13:56 | ANE.PACU2 ---
Inpatient post-anesthesia follow up: Airway intact: Yes Vital signs: Temperature 98.7 F Pulse Rate [Curren t] 78 Pulse Rate 61 Respiratory Rate [ Current] 28 Respiratory Rate 18 Blood Pressure [Le ft Arm] 160/64 Blood Pressure 145/55 Pulse Oximetry [Cu rrent] 97 Pulse Oximetry 98 Oxygen Delivery Me thod Nasal Cannula Oxygen Flow Rate [ Current] 60 Oxygen Flow Rate 3 Fraction of Inspir ed Oxygen [ 40 Current] Fraction of Inspir ed Oxygen 30 Hydration adequate: Yes Nausea and vomiting: Yes Pain level: 1 Mental status: Baseline
--- NOTE | 2022-11-23 14:06 | PC.NURSE ---
Received patient back form surgery staff at 1348. BP: 150/55, HR: 56, RR: 22, Temp: 96.6 axillary. Patient is lethgic, but opens eyes when you speak to her, has mumbled responses. Patient has had 1L of fluid during surgery.
[2022-11-23] MEDS: iron sucrose 200 MG in sodium chloride 0.9% (100 ml) 100 ML 220 MG IV (14:20)
[2022-11-23] MEDS: sodium chloride 0.9% 100 mL Bag 50 ML IV (15:46)
--- NOTE | 2022-11-23 15:46 | PM.PN ---
Subjective Subjective: No acute events overnight. Patient has remained hemodynamically stable and afebrile. Today morning patient seen laying comfortably in bed with family at bedside. Patient seems lethargic. Underwent dialysis yesterday. Continues to saturate more than 95% on 3 L. Vitals/I&O/Wt Last Vital Signs Temp 96.6 F L 11/23/22 14:00 Pulse 56 L 11/23/22 14:00 Resp 20 H 11/23/22 14:00 BP 154/56 11/23/22 14:00 Pulse Ox 99 11/23/22 14:00 O2 Del Method Nasal Cannula 11/23/22 14:00 O2 Flow Rate 4 11/23/22 14:00 FiO2 30 11/18/22 16:00 11/23/22 11/23/22 11/23/22 06:59 14:59 22:59 Intake Total 410 / 410 Output Total 0 / 2665 Balance 0 / -1444.5 410 / 410 Weight last 48 hrs Weight 0 g Physical Exam Narrative: General: Patient is frail. Chronically sick appearing, anxious, at start was having difficulty in breathing which improved after being on BiPAP. Head: Temporal wasting. Neck: No JVD. Cardiovascular: No gallops. No murmurs. 3-4+ pitting edema bilaterally. Lungs: Adequate air movement. No wheezing. No Crackles. Skin: No jaundice. No rashes. Abdomen: Normal bowel sounds, abdomen soft and nontender. Extremities: No cyanosis or clubbing. Musculoskeletal: No overt joint deformity. Neurological: Moves all 4 extremities. No myoclonus. Urinary Catheter Management: Lim: Cath Placed During This Visit: yes, but has since been removed by the nurse Reason for Continuing Indwelling Catheter: Accurate Measurement of Urinary Output in Critically Ill Patients Urinary Catheter Date of Insertion: 11/07/22 Urinary Catheter Time of Insertion: 19:00 Date Urinary Catheter Removed: 11/21/22 Time Urinary Catheter Discontinued: 14:00 Data 11/23/22 02:56 11/23/22 02:56 A&P Assessment and plan (1) NSTEMI (non-ST elevated myocardial infarction): Echocardiogram repeated showed an EF of 28% with LV cavity, moderate LA size and mild RA size increased, mild MR. S/p PCI to left main Appreciate cardiology recommendations. Continue with aspirin, Plavix, statin. Imdur and beta-candice has been resumed as the blood pressure is significantly improved (2) Left main coronary artery disease: (3) Chronic renal insufficiency: DAXA on CKD: Likely secondary to JEANNINE, CRS: Progressed to likely acute renal failure. Appreciate nephrology recommendations. Patient will most likely need dialysis going forward at least for short while. Currently has temporary dialysis catheter in groin. Plan for tunneled catheter placement. We will consult surgery. Case management alerted for chair time as an outpatient. (4) Cardiogenic shock: Initially during hospital stay patient was in cardiogenic shock: Currently it has resolved: Maintaining good perfusion, has no JVD, extremities are, warm, not on any inotropic support.She is off Levophed. Cardiogenic shock was attributed to NSTEMI. (5) Atrial fibrillation with RVR: Has converted to sinus rhythm. Switch to amiodarone 200 mg oral daily. Slight bradycardia currently. Decrease dose of metoprolol to 12.5 mg twice daily. Patient was on therapeutic anticoagulation with Lovenox, currently on hold, due to high risk of bleeding. Long-term therapeutic anticoagulation, possibly could be avoided, given her age and risk of bleeding, and she also being on aspirin and Plavix for now. (6) Heart failure: Decompensated heart failure with reduced ejection fraction. Currently on dialysis given DAXA secondary to JEANNINE. Monitor intake output charting Daily weight Monitor electrolytes, keep potassium greater than 4, magnesium greater than 2 Telemetry monitoring (7) Respiratory failure with hypoxia and hypercapnia: Resolved. Patient back to baseline oxygen supplementation. D-dimer elevated 3.4. After age-related modification within normal limits. CT chest results appreciated. Concerns for bilateral pleural effusion with possible atelectasis and mild pneumonia. Respiratory viral panel negative. Sputum culture awaited. MRSA recently negative. Given critically illness for now start patient on IV Zosyn empirically. We will try to finish a 5-day course. Continue with DuoNebs every 6 hour, budesonide twice daily. Oxygen supplementation keeping saturation over 90%. (8) Chronic hyponatremia: Acute on chronic hyponatremia. Baseline sodium seems to be around 1 28-1 30. Currently stable around 127. Continue to monitor daily. Sodium tablets have been discontinued. We will continue to monitor. (9) Hypertension: Goal blood pressure less than 140/90 mmHg. Patient states usually blood pressures have been running around 170 for many years. Reluctant to increase antihypertensives too much. States on increasing medication she becomes very sleepy and tired. Multiple antihypertensives at home. Takes clonidine 0.1 twice daily, felodipine 10 mg oral every afternoon, hydralazine 25 mg 3 times daily, Imdur 60 mg oral daily, valsartan 160 mg twice daily. For now restarting Imdur 60 mg, metoprolol 12.5 mg twice daily, hydralazine 25 mg 3 times daily. Will uptitrate accordingly. Qualifiers: Hypertension type: essential hypertension Qualified Code(s): I10 - Essential (primary) hypertension (10) Hyperkalemia: Resolved Hold off on home dose potassium. Continue to monitor daily. (11) Coronary artery disease: Qualifiers: Coronary Disease-Associated Artery/Lesion type: [place] artery [place] vs. transplanted heart: [place] heart Associated angina: without angina Qualified Code(s): I25.10 - Atherosclerotic heart disease of [place] coronary artery without angina pectoris (12) Goals of care, counseling/discussion: (13) Anemia: Monitor H&H Transfuse to maintain hemoglobin greater than 7 Currently on IV iron. Plan DVT ppx: On subcu heparin CODE STATUS full code Continue with cardiac diet. N.p.o. after midnight for tunnel catheter placement. Protonix for PUD prophylaxis. Plan for the day: Transfuse 1 unit of PRBC as hemoglobin less than 8 given history of CAD and PCI this admission. Tunneled catheter placement today. Continue with amiodarone and metoprolol. Goal blood pressure less than 140/90 mmHg. Continue with current antihypertensives. Add random cortisol level to morning labs. Recheck thyroid panel in AM. Decrease pain medications with [place] at 5 mg every 6 hourly as needed given worsening renal functions. Discussed and reviewed with patient's family at bedside and they are agreeable. Stop Celexa for now. Discharge plan: Plan to discharge within next 24 to 48 hours if remained hemodynamically stable after tunnel catheter has been placed and chair time outpatient has been set up. Case management alerted. Plan to discharge to SNF. Transfer to [facility]. Attestations Medical Necessity Statement*: Requires further hospitalization for tunnel catheter placement given need for ongoing dialysis as an outpatient, post PCI to left main, anemia requiring blood transfusion Diagnoses NSTEMI (non-ST elevated myocardial infarction) I21.4 Left main coronary artery disease I25.10 Chronic renal insufficiency N18.9 Cardiogenic shock R57.0 Atrial fibrillation with RVR I48.91 Heart failure I50.9 Respiratory failure with hypoxia and hypercapnia J96.91; J96.92 Chronic hyponatremia E87.1 Hypertension I10 Hypertension type: essential hypertension Hyperkalemia E87.5 Coronary artery disease I25.10 Coronary Disease-Associated Artery/Lesion type: [place] artery [place] vs. transplanted heart: [place] heart Associated angina: without angina Goals of care, counseling/discussion Z71.89 Anemia D64.9
[2022-11-23 16:45] LABS: Reticulocyte % 5.6 % (0.5-2.0)
[2022-11-23 16:52] LABS: Free T4 Free Thyroxine 1.21 ng/dL (0.82-1.77); Thyroid Stimulating Hormone 2.36 uIU/mL (0.27-4.20)
[2022-11-23 16:53] LABS: Cortisol Random 17.33 ug/dL (2.47-19.5)
--- NOTE | 2022-11-23 17:01 | PC.NURSE ---
No urine output today. Nurse bladder scanned patient, shows 70mL retained.
--- NOTE | 2022-11-23 17:01 | PC.NURSE ---
Addendum entered by Ramón Oakley RN 11/23/22 18:35: Shift Summary: Patient rested in bed throughout the day. GOt a tunneled dialysis catheter placed to the left IJ. RIght groin dialysis catheter removed. Dialysis orders for tommorow. Patient has had very little oral intake today, as she has been NPO or had an altered mental status for most of the day due to the surgery. Patient received 1L of fluids in surgery, 350mL from a blood transfusion, and 100mL from iron sucrose. Zero urine output, bladder scanned and shows retaining 72mL. THough lethargic for about 4 hours after the surgery, patient has returned to her presurgery mental status (alert to person, place, time, and situation, lethargic). Original Note: Shift Summary: Patient rested in bed throughout the day. GOt a tunneled dialysis catheter placed to the left IJ. RIght groin dialysis catheter still in place, waiting on confirmation that the new dialysis catheter works before removal. No dialysis orders yet, but Dr delvalle stated there will be dialysis tomorrow (11/23/2022). Patient has had very little oral intake today, as she has been NPO or had an altered mental status for most of the day due to the surgery. Patient received 1L of fluids in surgery, 350mL from a blood transfusion, and 100mL from iron sucrose. Zero urine output, bladder scanned and shows retaining 72mL. THough lethargic for about 4 hours after the surgery, patient has returned to her presurgery mental status (alert to person, place, time, and situation, lethargic).
--- NOTE | 2022-11-23 18:07 | P.PN_ITS ---
Subjective Subjective: s/p PC placement Medications: Reviewed: Yes Vitals/I&O/Wt Last Vital Signs Temp 97.2 F L 11/23/22 16:00 Pulse 54 L 11/23/22 16:00 Resp 14 11/23/22 16:00 BP 158/53 11/23/22 16:00 Pulse Ox 99 11/23/22 16:00 O2 Del Method Nasal Cannula 11/23/22 16:00 O2 Flow Rate 2 11/23/22 16:00 FiO2 30 11/18/22 16:00 11/23/22 11/23/22 11/23/22 06:59 14:59 22:59 Intake Total 410 / 410 210 / 620 Output Total 0 / 2665 Balance 0 / -1444.5 410 / 410 210 / 620 Weight last 48 hrs Weight 0 g Physical Exam Extremity: GENERAL: Yes edema Urinary Catheter Management: Lim: Cath Placed During This Visit: yes, but has since been removed by the nurse Reason for Continuing Indwelling Catheter: Accurate Measurement of Urinary Outp ut in Critically Ill Patients Urinary Catheter Date of Insertion: 11/07/22 Urinary Catheter Time of Insertion: 19:00 Date Urinary Catheter Removed: 11/21/22 Time Urinary Catheter Discontinued: 14:00 Data 11/23/22 02:56 11/23/22 02:56 A&P Assessment and plan (1) Acute kidney injury: Plan 1. Acute oligoanuric renal failure due to cardiogenic shock, contrast. s/p NSTEMI, stent. Minimal urine output. received HD 11/18 and 11/19 2. Hyponatremia 3. Anemia, iron deficient, rx IV iron load, s/pepogen at dialysis Recommend:HD tomorrow , 3h 2L UF, 3K bath, temp HD catheter removed, s/p tunneled IJ HD catheter placement today Attestations Medical Necessity Statement*: per medicine Coding Level of Care Code Acute Code for [facility] Diagnoses Acute kidney injury N17.9
--- NOTE | 2022-11-23 18:36 | PC.NURSE ---
Removed right groin dialysis catheter Catherter line aspirated of heparin. Catheter removed and pressure josé miguel for 20 minutes. No hematoma detected. No external blood lose. dressed with clear dresing and gauze.
[2022-11-23] MEDS: atorvastatin 40 mg Tablet PO (20:06)
[2022-11-23] MEDS: heparin 5,000 unit/mL INJ 1 mL 5000 UNIT SUBCUT (20:10)
[2022-11-23] MEDS: HYDROcodone-acetaminophen 5-325 mg Tablet 1 TAB PO (22:23)
[2022-11-24] VITALS (31 sets, daily range): BP systolic 131–182; BP diastolic 49–102; PULSE 57–80; RESP 13–31; TEMP 36.6–37.2; O2SAT 94–100
[2022-11-24 03:07] LABS: Basophils % 0.2 %; Eosinophils % 0.3 %; Hematocrit 27.3 % (37.0-47.0); Hemoglobin 8.4 g/dL (11.5-15.3); Lymphocytes # 0.6 10^3/uL (0.8-4.8); Mean Corpuscular HGB Conc 30.8 g/dL (30.0-36.0); Mean Corpuscular Hemoglobin 31.3 pg (28.0-34.0); Mean Corpuscular Volume 101.9 fl (81-99); Mean Platelet Volume 10.3 fL (7.4-10.4); Monocytes # 0.9 10^3/uL (0.2-0.9); Monocytes % 5.4 %; Neutrophils # 13.73 10^3/uL (1.8-7.7); Neutrophils % 87.6 %; Nucleated Red Blood Cells # 0.1 /100WBC; Nucleated Red Blood Cells % 0.3 %; Platelet Count 428 10^3/cmm (130-400); Red Blood Count 2.68 10^6/uL (4.1-5.3); Red Cell Distribution Width 17.9 % (12.1-15.1); White Blood Count 15.7 10^3/uL (4.0-10.0)
[2022-11-24 03:26] LABS: Alanine Aminotransferase 7 U/L (0-33); Albumin Level 2.7 g/dL (3.5-5.2); Alkaline Phosphatase 86 U/L (35-105); Anion Gap 12.9 (5-19); Aspartate Amino Transferase 15 U/L (0-32); Blood Urea Nitrogen 27 mg/dL (8-23); Calcium 7.9 mg/dL (8.5-10.5); Carbon Dioxide 26 mmol/L (22-29); Chloride 97 mmol/L (98-107); Creatinine Clr Calc Pharmacy 0; Globulin 2.8 g/dL (1.3-4.6); Glucose 92 mg/dL (65-115); Osmolality Calculated 279 mOsm/kg (285-295); Potassium 3.9 mmol/L (3.5-5.1); Sodium 132 mmol/L (136-145); Total Bilirubin 0.3 mg/dL (0.15-1.2); Total Protein 5.5 g/dL (6.6-8.7)
[2022-11-24] MEDS: HYDROcodone-acetaminophen 5-325 mg Tablet 1 TAB PO ×3 (04:46→23:50)
[2022-11-24] MEDS: levothyroxine 88 mcg Tablet PO (04:47)
[2022-11-24] MEDS: heparin 5,000 unit/mL INJ 1 mL 5000 UNIT SUBCUT ×2 (06:11→18:08)
[2022-11-24] MEDS: lidocaine 4% cream 5 gm 1 APPLIC TOPICAL ×2 (06:11→19:23)
[2022-11-24] MEDS: clopidogrel 75 mg Tablet PO (08:04)
[2022-11-24] MEDS: metoprolol tartrate 25 mg Tablet 12.5 MG PO ×2 (08:05→21:11)
[2022-11-24] MEDS: isosorbide mononitrate ER 60 mg Tablet PO (08:05)
[2022-11-24] MEDS: gabapentin 100 mg Capsule PO ×2 (08:05→18:05)
[2022-11-24] MEDS: aspirin 81 mg Chew Tablet PO (08:05)
[2022-11-24] MEDS: tamsulosin 0.4 mg Capsule PO (08:05)
[2022-11-24] MEDS: hyDRALAzine 25 mg Tablet PO ×2 (08:05→14:50)
[2022-11-24] MEDS: amiodarone 200 mg Tablet PO (08:05)
[2022-11-24] MEDS: lidocaine 5% Patch 1 PATCH TOPICAL (08:59)
[2022-11-24] MEDS: heparin, porcine 1,000 unit/mL INJ 10 mL 10000 UNIT INTRACATH (10:57)
--- NOTE | 2022-11-24 15:03 | PM.PN ---
Subjective Subjective: No acute events overnight. Patient has remained hemodynamically stable and afebrile. Today morning seen with spouse at bedside. Patient was sitting up in chair and is being positioned back in bed through Vidya lift for dialysis. Blood was appreciated on improving hemoglobin of 8.4, leukocytosis up to 15.7 most likely in setting of procedure done yesterday, stable platelet count, sodium level improving to 132 with creatinine of 2.4 and BUN of 27 today. Albumin continues to remain low at 2.7. We did discuss in detail today that if patient remains hemodynamically stable the plan will be to discharge within next 24 hours as patient is as stable as she is going to get and has remained hemodynamically stable and afebrile over the last many days tolerated dialysis well. Only thing going forward but she would need to continue regular dialysis, rehab and appropriate diet before she would get better if she would get better going forward. Vitals/I&O/Wt Last Vital Signs Temp 98.6 F 11/24/22 09:00 Pulse 70 11/24/22 12:00 Resp 18 11/24/22 12:00 BP 161/65 11/24/22 12:00 Pulse Ox 98 11/24/22 12:00 O2 Del Method Nasal Cannula 11/24/22 12:00 O2 Flow Rate 2 11/24/22 12:00 FiO2 30 11/18/22 16:00 11/24/22 11/24/22 11/24/22 06:59 14:59 22:59 Intake Total 100 / 770 Output Total 0 / 0 Balance 100 / 770 Weight last 48 hrs Weight 0 g Physical Exam Narrative: General: Patient is frail. Chronically sick appearing, anxious, at start was having difficulty in breathing which improved after being on BiPAP. Head: Temporal wasting. Neck: No JVD. Cardiovascular: No gallops. No murmurs. 3-4+ pitting edema bilaterally. Lungs: Adequate air movement. No wheezing. No Crackles. Skin: No jaundice. No rashes. Abdomen: Normal bowel sounds, abdomen soft and nontender. Extremities: No cyanosis or clubbing. Musculoskeletal: No overt joint deformity. Neurological: Moves all 4 extremities. No myoclonus. Urinary Catheter Management: Lim: Cath Placed During This Visit: yes, but has since been removed by the nurse Reason for Continuing Indwelling Catheter: Accurate Measurement of Urinary Output in Critically Ill Patients Urinary Catheter Date of Insertion: 11/07/22 Urinary Catheter Time of Insertion: 19:00 Date Urinary Catheter Removed: 11/21/22 Time Urinary Catheter Discontinued: 14:00 Data 11/24/22 02:49 11/24/22 02:49 A&P Assessment and plan (1) NSTEMI (non-ST elevated myocardial infarction): Echocardiogram repeated showed an EF of 28% with LV cavity, moderate LA size and mild RA size increased, mild MR. S/p PCI to left main Appreciate cardiology recommendations. Continue with aspirin, Plavix, statin. Imdur and beta-candice has been resumed as the blood pressure is significantly improved (2) Left main coronary artery disease: (3) Chronic renal insufficiency: DAXA on CKD: Likely secondary to JEANNINE, CRS: Progressed to likely acute renal failure. Appreciate nephrology recommendations. Patient will most likely need dialysis going forward at least for short while. Currently has temporary dialysis catheter in groin. Plan for tunneled catheter placement. We will consult surgery. Case management alerted for chair time as an outpatient. (4) Cardiogenic shock: Initially during hospital stay patient was in cardiogenic shock: Currently it has resolved: Maintaining good perfusion, has no JVD, extremities are, warm, not on any inotropic support.She is off Levophed. Cardiogenic shock was attributed to NSTEMI. (5) Atrial fibrillation with RVR: Has converted to sinus rhythm. Switch to amiodarone 200 mg oral daily. Slight bradycardia currently. Decrease dose of metoprolol to 12.5 mg twice daily. Patient was on therapeutic anticoagulation with Lovenox, currently on hold, due to high risk of bleeding. Long-term therapeutic anticoagulation, possibly could be avoided, given her age and risk of bleeding, and she also being on aspirin and Plavix for now. (6) Heart failure: Decompensated heart failure with reduced ejection fraction. Currently on dialysis given DAXA secondary to JEANNINE. Monitor intake output charting Daily weight Monitor electrolytes, keep potassium greater than 4, magnesium greater than 2 Telemetry monitoring (7) Respiratory failure with hypoxia and hypercapnia: Resolved. Patient back to baseline oxygen supplementation. D-dimer elevated 3.4. After age-related modification within normal limits. CT chest results appreciated. Concerns for bilateral pleural effusion with possible atelectasis and mild pneumonia. Respiratory viral panel negative. Sputum culture awaited. MRSA recently negative. Given critically illness for now start patient on IV Zosyn empirically. We will try to finish a 5-day course. Continue with DuoNebs every 6 hour, budesonide twice daily. Oxygen supplementation keeping saturation over 90%. (8) Chronic hyponatremia: Acute on chronic hyponatremia. Baseline sodium seems to be around 1 28-1 30. Currently stable around 127. Continue to monitor daily. Sodium tablets have been discontinued. We will continue to monitor. (9) Hypertension: Goal blood pressure less than 140/90 mmHg. Patient states usually blood pressures have been running around 170 for many years. Reluctant to increase antihypertensives too much. States on increasing medication she becomes very sleepy and tired. Multiple antihypertensives at home. Takes clonidine 0.1 twice daily, felodipine 10 mg oral every afternoon, hydralazine 25 mg 3 times daily, Imdur 60 mg oral daily, valsartan 160 mg twice daily. For now restarting Imdur 60 mg, metoprolol 12.5 mg twice daily, hydralazine 25 mg 3 times daily. Will uptitrate accordingly. Qualifiers: Hypertension type: essential hypertension Qualified Code(s): I10 - Essential (primary) hypertension (10) Hyperkalemia: Resolved Hold off on home dose potassium. Continue to monitor daily. (11) Coronary artery disease: Qualifiers: Associated angina: without angina Coronary Disease-Associated Artery/Lesion type: [place] artery [place] vs. transplanted heart: [place] heart Qualified Code(s): I25.10 - Atherosclerotic heart disease of [place] coronary artery without angina pectoris (12) Goals of care, counseling/discussion: (13) Anemia: Monitor H&H Transfuse to maintain hemoglobin greater than 7 Currently on IV iron. Plan DVT ppx: On subcu heparin CODE STATUS full code Continue with regular diet Protonix for PUD prophylaxis. Plan for the day: Appreciate blood work today. Sodium levels have returned to baseline per patient. Plan for dialysis today. Repeat labs in AM. Continue with current antihypertensives. Continue with amiodarone, aspirin and Plavix. Plan to discharge on dual antiplatelet and not on anticoagulation given high risk of bleeding. Continue with PT, encourage to improve oral intake. Discharge plan: Plan to discharge within next 24 to 48 hours if remained hemodynamically stable after tunnel catheter has been placed and chair time outpatient has been set up. Case management alerted. Plan to discharge to SNF. Transfer to [facility]. Attestations Medical Necessity Statement*: Requires further hospitalization for management of acute kidney injury requiring dialysis in setting of JEANNINE. Patient post PCI to left main with severe LV dysfunction with concerns for congestive heart failure Diagnoses NSTEMI (non-ST elevated myocardial infarction) I21.4 Left main coronary artery disease I25.10 Chronic renal insufficiency N18.9 Cardiogenic shock R57.0 Atrial fibrillation with RVR I48.91 Heart failure I50.9 Respiratory failure with hypoxia and hypercapnia J96.91; J96.92 Chronic hyponatremia E87.1 Hypertension I10 Hypertension type: essential hypertension Hyperkalemia E87.5 Coronary artery disease I25.10 Associated angina: without angina Coronary Disease-Associated Artery/Lesion type: [place] artery [place] vs. transplanted heart: [place] heart Goals of care, counseling/discussion Z71.89 Anemia D64.9
--- NOTE | 2022-11-24 15:31 | PC.NURSE ---
Patient is back form dialysis. DIalysis removed 1.8 L. Patient is reporting difficulty breathing, is breathing 28 times a minute and appears to be working harder to breath. Saturating 98% on 2LNC. Nurse alerted Dr leos and received orders for morphine and breathing treatment.
[2022-11-24] MEDS: ipratropium-albuterol 3 mL Neb INHALATION ×2 (15:37→19:34)
[2022-11-24] MEDS: morphine 4 mg/mL SDV 1 mL 1 MG IVP (15:39)
--- NOTE | 2022-11-24 16:26 | P.PN_ITS ---
Subjective Subjective: She is getting dialysis today Medications: Reviewed: Yes Vitals/I&O/Wt Last Vital Signs Temp 98.3 F 11/24/22 15:00 Pulse 71 11/24/22 15:45 Resp 30 H 11/24/22 15:39 BP 175/61 11/24/22 15:00 Pulse Ox 98 11/24/22 15:39 O2 Del Method Nasal Cannula 11/24/22 15:37 O2 Flow Rate 2.5 11/24/22 15:37 FiO2 30 11/18/22 16:00 11/24/22 11/24/22 11/24/22 06:59 14:59 22:59 Intake Total 100 / 770 Output Total 0 / 0 Balance 100 / 770 Physical Exam Const: COMMON NORMALS: no acute distress, patient oriented x3 and alert GENERAL APPEARANCE: cooperative, comfortable, well kempt and well hydrated HENMT: COMMON NORMALS: hearing grossly normal bilaterally, external ears normal and moist oral mucous membranes FACE & SINUS: normal facial exam EXTERNAL EAR: Yes external ears normal Eye: COMMON NORMALS: EOMs intact bilaterally and no scleral icterus GENERAL EYE: appearance normal, both eyes and all related structures ALIGNMENT: Yes alignment normal Neck/C-Spine: COMMON NORMALS: supple and no JVD GENERAL: Yes normal visual inspection CAROTIDS: Yes normal carotid upstroke Chest: COMMONS NORMALS: normal inspection of the chest and normal palpation of entire chest wall CHEST: Yes Symmetrical chest wall rise and No tenderness OTHER: left upper chest dialysis catheter +, Resp: COMMON NORMALS: clear to auscultation bilaterally AUSCULTATION: clear to auscultation bilaterally, no crackles, no rales, no rhonchi and no wheezes OTHER: decreased breath sounds at bases Cardio: COMMON NORMALS: no JVD, regular rate (bradycardia+), regular rhythm, S1 normal heart sound present, S2 normal heart sound present and Peripheral pulses 2+ throughout PALPATION: normal PMI RATE: regular rate (bradycardia+) RHYTHM: regular rhythm HEART SOUNDS: S1 normal heart sound present, S2 normal heart sound present, no gallops and no murmurs BRUITS: no carotid bruits PERIPHERAL PULSES: Peripheral pulses 2+ throughout, radial pulses present, posterior tibial pulses present and dorsalis pedis present GI: COMMON NORMALS: Soft to palpation AUSCULTATION: Yes normoactive bowel sounds PALPATION: Yes Soft to palpation, No Tenderness to palpation present (GI), No Guarding due to palpation present (GI) and No Rigid due to palpation PERCUSSION: tympanic to percussion Extremity: GENERAL: No cyanosis, Yes edema (2+ edema bilateral) and No pallor Neuro: COMMON NORMALS: patient oriented x3 and no focal motor deficits SENSORIUM/ORIENTATION: Yes alert Psych: COMMON NORMALS: Normal thought process present and speech normal APPEARANCE: Yes well kempt SPEECH: Yes normal speech MOOD & AFFECT: Yes euthymic mood THOUGHT PROCESS: Normal thought process present THOUGHT CONTENT: Yes Normal thought content present Urinary Catheter Management: Lim: Cath Placed During This Visit: yes, but has since been removed by the nurse Reason for Continuing Indwelling Catheter: Accurate Measurement of Urinary Output in Critically Ill Patients Urinary Catheter Date of Insertion: 11/07/22 Urinary Catheter Time of Insertion: 19:00 Date Urinary Catheter Removed: 11/21/22 Time Urinary Catheter Discontinued: 14:00 Data 11/24/22 02:49 11/24/22 02:49 A&P Assessment and plan (1) NSTEMI (non-ST elevated myocardial infarction): Patient is status post successful revascularization of left main artery with EDUARDO x2. Continue aspirin, Plavix, statin and metoprolol and statin. continue metoprolol 12.5mg BID - s/p hemodialysis yesterday with removal of 2600 cc; plan for dilaysis again tomorrow -No recurrent chest pain. (2) Coronary artery disease: see above Qualifiers: Coronary Disease-Associated Artery/Lesion type: [place] artery [place] vs. transplanted heart: [place] heart Associated angina: without angina Q ualified Code(s): I25.10 - Atherosclerotic heart disease of [place] coronary artery without angina pectoris (3) Dyslipidemia (high LDL; low HDL): (4) Chronic hyponatremia: Plan Paroxysmal Atrial fibrillation: remains in sinus; on amiodarone. lovenox held d/t drop in Hb; based on clinical improvement will recommend starting on Eliquis 2.5 mg BID on discharge and d/c ASA CHF: Systolic CHF (LVEF~30%); on valsartan and low dose metoprolol; volume management via dilaysis. DAXA 2/2 JEANNINE: On hemodialysis now HTN: started on hydralazine, ISMN Chronic anemia: s/p 1 upRBC and IV iron infusions Hypothyroidism Advanced age Attestations Medical Necessity Statement*: As per primary team Time Spent in Patient Care: 16 - 35 minutes Coding Level of Care Code 63803 Diagnoses NSTEMI (non-ST elevated myocardial infarction) I21.4 Coronary artery disease I25.10 Coronary Disease-Associated Artery/Lesion type: [place] artery [place] vs. transplanted heart: [place] heart Associated angina: without angina Dyslipidemia (high LDL; low HDL) E78.5 Chronic hyponatremia E87.1
--- NOTE | 2022-11-24 18:14 | PC.NURSE ---
Patient is anxious at this time, worried that her is becoming exhausted from being at her bedside this whole time, wants her daughter at her bedside but doesn't want to ask too much of her, nervous about changing nurses tonight. When asleep her respiratory rate is within normal limits, but when awake she is tachypnic in the high 20's and expressing many concerns
--- NOTE | 2022-11-24 18:42 | ECG_ITS ---
[facility] Test Date: 2022-11-24 Pat Name: Kati Chris Department: Room: [facility] Gender: Female Clinic Clerk: : 1940 Requested By: Amari Avila Order Number: [id number] Betty MD: Susan Marquez M.D. Measurements Intervals [place] Rate: 79 P: 31 PA: 175 QRS: -23 QRSD: 189 T: 138 QT: 451 QTc: 520 Interpretive Statements SINUS RHYTHM LEFT BUNDLE BRANCH BLOCK [120+ ms QRS DURATION, 80+ ms Q/S IN V1/V2, 85+ ms R IN I/aVL/V5/V6] Compared to ECG 11/12/2022 05:43:15 Left bundle-branch block now present Atrial fibrillation no longer present Aberrant conduction of supraventricular beat(s) no longer present Ventricular premature complex(es) no longer present Intraventricular conduction delay no longer present Electronically Signed On 11-25-2022 7:20:00 CDT by Susan Marquez M.D. [id number]
[2022-11-24] MEDS: nitroglycerin 1 gm/inch oint Pkt 0.5 INCH TOPICAL ×2 (18:45→23:50)
[2022-11-24] MEDS: ALPRAZolam 0.5 mg Tablet PO (18:47)
[2022-11-24] MEDS: hyDRALAzine 50 mg Tablet PO (18:47)
--- NOTE | 2022-11-24 19:32 | PC.NURSE ---
Patient continues to be more anxious, now reports that she is having difficulty breathing. Patient is diaphoretic and Patient's is at bedside and states that she looks the same way as she did last time she had a heart attack. NUrse alerted Dr leos and received orders to apply nitro paste, give xanax, increase hydralazine dose and give now (see mar). Orders to obtained EKG, stat troponins, contacted respiratory therapist to give breathing treatment.
[2022-11-24] MEDS: budesonide 0.5 mg/2 mL Neb INHALATION (19:34)
--- NOTE | 2022-11-24 19:36 | PC.NURSE ---
Shift SUmmary: uneventful shift until end of shift. Patient was up to a chair for about 2 hours today. REcieved dialysis and had 1.8L removed. rested in bed for rest of day. Continues to have no appetite, lethargic, unmotivated. At shift change, patient became diaphoretic, increased work of breathing, anxious, presented similar to previous heart attacks according to family. EKG obtained, troponins obtained, nitro paste applied, xanax given, breathing treatment ordered. [employer] shift lead nurse aware of change in condition and present while new interventions performed.
--- NOTE | 2022-11-24 19:56 | P.PN_ITS ---
Subjective Subjective: s/p HD s/p tunnelled catheter Medications: Reviewed: Yes Vitals/I&O/Wt Last Vital Signs Temp 98.9 F 11/24/22 18:00 Pulse 78 11/24/22 19:34 Resp 29 H 11/24/22 19:34 BP 178/102 11/24/22 18:45 Pulse Ox 96 11/24/22 19:34 O2 Del Method Nasal Cannula 11/24/22 19:34 O2 Flow Rate 2.5 11/24/22 19:34 FiO2 30 11/18/22 16:00 11/24/22 11/24/22 11/24/22 06:59 14:59 22:59 Intake Total 100 / 770 100 / 100 Output Total 0 / 0 Balance 100 / 770 100 / 100 Physical Exam Extremity: GENERAL: Yes edema Urinary Catheter Management: Lim: Cath Placed During This Visit: yes, but has since been removed by the nurse Reason for Continuing Indwelling Catheter: Accurate Measurement of Urinary Output in Critically Ill Patients Urinary Catheter Date of Insertion: 11/07/22 Urinary Catheter Time of Insertion: 19:00 Date Urinary Catheter Removed: 11/21/22 Time Urinary Catheter Discontinued: 14:00 Data 11/24/22 02:49 11/24/22 02:49 A&P Assessment and plan (1) Acute kidney injury: Plan 1. Acute oligoanuric renal failure due to cardiogenic shock, contrast. s/p NSTEMI, stent. Minimal urine output. received HD 11/18 and 11/19 2. Hyponatremia 3. Anemia, iron deficient, rx IV iron load, s/pepogen at dialysis Recommend:HD today , 3h 2L UF, 3K bath, temp HD catheter removed, s/p tunneled IJ HD catheter placement today Attestations Medical Necessity Statement*: per medicine Coding Level of Care Code Acute Code for [facility] Fwd Diagnoses Acute kidney injury N17.9
[2022-11-24 20:58] LABS: Troponin(5th) Baseline 849 ng/L (0-10)
--- NOTE | 2022-11-24 20:58 | PC.HD ---
Pt not feeling good all over prior to treatment, got worse during treatment and pt increasingly irritable, c/o SOB throughout treatment in spite of O2 sat being 98% and O2 flow rate being increased for pt comfort. UF off the last 30 minutes of treatment without improvement in symptoms, and tx terminated 15 miniutes early at pt's request.
[2022-11-24] MEDS: atorvastatin 40 mg Tablet PO (21:10)
[2022-11-24 22:38] LABS: Troponin 5 2HR Delta -16.5 ABS# (0-10)
[2022-11-24 22:40] LABS: Troponin 5 2HR 832.5 ng/L (0-10)
[2022-11-25] VITALS (38 sets, daily range): BP systolic 125–190; BP diastolic 45–85; PULSE 57–80; RESP 8–30; TEMP 36.4–37.2; O2SAT 94–100
[2022-11-25 03:15] LABS: Troponin 5 6HR Delta 6.9 ng/L (0-12)
[2022-11-25 03:16] LABS: Troponin 5 6HR 855.9 ng/L (0-10)
[2022-11-25] MEDS: ondansetron 2 mg/ML SDV 2 mL 4 MG IVP (03:41)
[2022-11-25] MEDS: pantoprazole 40 mg SDV IVP ×2 (03:42→15:19)
--- NOTE | 2022-11-25 04:00 | PC.NURSE ---
Patient became nauseated and threw up approx 200mL of brown colored emesis. Notified Dr. Meeks of patients nausea and vomiting possibly blood tinged. Orders given for zofran and protonix and keep patient NPO for now. Notified of elevated troponin level with patient having continued shortness of breath with no chest pain.
[2022-11-25 04:28] LABS: Basophils % 0.1 %; Hematocrit 28.1 % (37.0-47.0); Hemoglobin 8.5 g/dL (11.5-15.3); Lymphocytes # 0.6 10^3/uL (0.8-4.8); Lymphocytes % 4.1 %; Mean Corpuscular HGB Conc 30.2 g/dL (30.0-36.0); Mean Corpuscular Hemoglobin 30.7 pg (28.0-34.0); Mean Corpuscular Volume 101.4 fl (81-99); Mean Platelet Volume 10.5 fL (7.4-10.4); Monocytes # 0.8 10^3/uL (0.2-0.9); Monocytes % 5.3 %; Neutrophils # 12.66 10^3/uL (1.8-7.7); Neutrophils % 88.8 %; Nucleated Red Blood Cells # 0.1 /100WBC; Nucleated Red Blood Cells % 0.4 %; Platelet Count 452 10^3/cmm (130-400); Red Blood Count 2.77 10^6/uL (4.1-5.3); Red Cell Distribution Width 18.2 % (12.1-15.1); White Blood Count 14.3 10^3/uL (4.0-10.0)
[2022-11-25 04:43] LABS: Alanine Aminotransferase 7 U/L (0-33); Albumin Level 2.9 g/dL (3.5-5.2); Alkaline Phosphatase 100 U/L (35-105); Aspartate Amino Transferase 22 U/L (0-32); Blood Urea Nitrogen 23 mg/dL (8-23); Calcium 8.2 mg/dL (8.5-10.5); Carbon Dioxide 24 mmol/L (22-29); Chloride 94 mmol/L (98-107); Creatinine Clr Calc Pharmacy 0; Globulin 3.4 g/dL (1.3-4.6); Glucose 98 mg/dL (65-115); Osmolality Calculated 282 mOsm/kg (285-295); Sodium 134 mmol/L (136-145); Total Bilirubin 0.3 mg/dL (0.15-1.2); Total Protein 6.3 g/dL (6.6-8.7)
[2022-11-25] MEDS: nitroglycerin 1 gm/inch oint Pkt 0.5 INCH TOPICAL ×3 (05:49→18:26)
[2022-11-25] MEDS: heparin 5,000 unit/mL INJ 1 mL 5000 UNIT SUBCUT ×2 (06:09→18:29)
--- NOTE | 2022-11-25 06:40 | W.PM.EVENTAC ---
Event Note Event Note: lynne's troponin checked overnight returned at 849, thereafter trending to 832 and 855 at 2 one 6-hour. She had 1 episode of vomiting with mixed blood therefore heparin infusion was not started. She received Protonix 40 mg IV. Update discussed with cardiology Dr. man
--- NOTE | 2022-11-25 08:05 | PC.SOCIAL ---
IMM update IMM updated with patient and family at bedside. Copy Pg 2 provided. Verbalized an understanding. Initialled, dated, timed, and placed in chart.
[2022-11-25] MEDS: HYDROcodone-acetaminophen 5-325 mg Tablet 1 TAB PO (09:30)
--- NOTE | 2022-11-25 09:38 | P.PN_ITS ---
Subjective Subjective: no new complaints Medications: Reviewed: Yes Vitals/I&O/Wt Last Vital Signs Temp 99.0 F 11/25/22 07:41 Pulse 66 11/25/22 08:32 Resp 24 H 11/25/22 08:32 BP 169/70 11/25/22 07:00 Pulse Ox 99 11/25/22 08:32 O2 Del Method Nasal Cannula 11/25/22 08:32 O2 Flow Rate 2 11/25/22 08:32 FiO2 30 11/18/22 16:00 11/24/22 11/25/22 11/25/22 22:59 06:59 14:59 Intake Total 1000 / 1000 150 / 1150 Output Total 2298 / 2298 200 / 2498 Balance -1298 / -1298 -50 / -1348 Weight last 48 hrs Weight 0 g Physical Exam Extremity: GENERAL: Yes edema Urinary Catheter Management: Lim: Cath Placed During This Visit: yes, but has since been removed by the nurse Reason for Continuing Indwelling Catheter: Accurate Measurement of Urinary Output in Critically Ill Patients Urinary Catheter Date of Insertion: 11/07/22 Urinary Catheter Time of Insertion: 19:00 Date Urinary Catheter Removed: 11/21/22 Time Urinary Catheter Discontinued: 14:00 Data 11/25/22 02:23 11/25/22 02:23 A&P Assessment and plan (1) Acute kidney injury: Plan 1. Acute oligoanuric renal failure due to cardiogenic shock, contrast. s/p NSTEMI, stent. Minimal urine output.Started HD 2. Hyponatremia 3. Anemia, iron deficient, rx IV iron load, s/p epogen at dialysis Recommend:HD tomorow , 3h 2L UF, 3K bath, temp HD catheter removed, s/p tunneled IJ HD catheter placement today Attestations Medical Necessity Statement*: per medicine Coding Level of Care Code Acute Code for [facility] F[facility] Diagnoses Acute kidney injury N17.9
[2022-11-25] MEDS: lidocaine 5% Patch 1 PATCH TOPICAL ×2 (09:50→21:01)
[2022-11-25] MEDS: morphine 4 mg/mL SDV 1 mL IVP ×8 (11:02→20:30)
--- NOTE | 2022-11-25 12:34 | PC.OT ---
PT REFUSED OT TREATMENT AT THIS TIME. WILL ATTEMPT AGAIN TOMORROW.
--- NOTE | 2022-11-25 13:18 | P.PN_ITS ---
Subjective Subjective: Yesterday in the evening patient had episode of difficulty in breathing and diaphoresis at which point her blood pressures were elevated and antihypertensives were adjusted. Cycle of troponins were ordered which showed elevation over 800 with delta of 6.9 and 6 hours. Today morning patient seen with family at bedside. Patient is lying comfortably in bed, lethargic complaining of difficulty in breathing though saturating 98% on 2 L, complaining of mild chest heaviness along with nausea. Patient declined taking her medications early in the morning today because of nausea. Patient did tolerate dialysis well yesterday. Given the baseline health, prolonged hospitalization complicated by non-ST elevation OH requiring left main along with DAXA secondary to JEANNINE requiring dialysis, severe protein energy malnutrition, physical deconditioning with patient being Vidya lift dependent further goals of care discussion were done again with patient's spouse, daughter at bedside. We discussed that unfortunately at this point it seems patient is either having non-ST elevation OH or type II OH given her poor EF, concern for congestive heart failure though patient seems to be dialysis dependent. We discussed that unfortunately patient will not be able to come back to her baseline health which to start with was poor as well. We discussed about quality of life versus quantity of life. Patient states she is done and she would rather be comfortable and asks her family to let go. Family and patient decided to go ahead with hospice. Vitals/I&O/Wt Last Vital Signs Temp 99.0 F 11/25/22 07:41 Pulse 62 11/25/22 11:00 Resp 21 H 11/25/22 11:49 BP 155/61 11/25/22 11:00 Pulse Ox 100 11/25/22 11:00 O2 Del Method Nasal Cannula 11/25/22 08:32 O2 Flow Rate 2 11/25/22 08:32 FiO2 30 11/18/22 16:00 11/24/22 11/25/22 11/25/22 22:59 06:59 14:59 Intake Total 1000 / 1000 150 / 1150 Output Total 2298 / 2298 200 / 2498 Balance -1298 / -1298 -50 / -1348 Weight last 48 hrs Weight 0 g Physical Exam Narrative: General: Patient is frail. Chronically sick appearing, anxious, at start was having difficulty in breathing which improved after being on BiPAP. Head: Temporal wasting. Neck: No JVD. Cardiovascular: No gallops. No murmurs. 3-4+ pitting edema bilaterally. Lungs: Adequate air movement. No wheezing. No Crackles. Skin: No jaundice. No rashes. Abdomen: Normal bowel sounds, abdomen soft and nontender. Extremities: No cyanosis or clubbing. Musculoskeletal: No overt joint deformity. Neurological: Moves all 4 extremities. No myoclonus. Urinary Catheter Management: Lim: Cath Placed During This Visit: yes, but has since been removed by the nurse Reason for Continuing Indwelling Catheter: Accurate Measurement of Urinary Output in Critically Ill Patients Urinary Catheter Date of Insertion: 11/07/22 Urinary Catheter Time of Insertion: 19:00 Date Urinary Catheter Removed: 11/21/22 Time Urinary Catheter Discontinued: 14:00 Data 11/25/22 02:23 11/25/22 02:23 A&P Assessment and plan (1) NSTEMI (non-ST elevated myocardial infarction): Echocardiogram repeated showed an EF of 28% with LV cavity, moderate LA size and mild RA size increased, mild MR. S/p PCI to left main Appreciate cardiology recommendations. Continue with aspirin, Plavix, statin. Imdur and beta-candice has been resumed as the blood pressure is significantly improved (2) Left main coronary artery disease: (3) Chronic renal insufficiency: DAXA on CKD: Likely secondary to JEANNINE, CRS: Progressed to likely acute renal failure. Appreciate nephrology recommendations. Patient will most likely need dialysis going forward at least for short while. Currently has temporary dialysis catheter in groin. Plan for tunneled catheter placement. We will consult surgery. Case management alerted for chair time as an outpatient. (4) Cardiogenic shock: Initially during hospital stay patient was in cardiogenic shock: Currently it has resolved: Maintaining good perfusion, has no JVD, extremities are, warm, not on any inotropic support.She is off Levophed. Cardiogenic shock was attributed to NSTEMI. (5) Atrial fibrillation with RVR: Has converted to sinus rhythm. Switch to amiodarone 200 mg oral daily. Slight bradycardia currently. Decrease dose of metoprolol to 12.5 mg twice daily. Patient was on therapeutic anticoagulation with Lovenox, currently on hold, due to high risk of bleeding. Long-term therapeutic anticoagulation, possibly could be avoided, given her age and risk of bleeding, and she also being on aspirin and Plavix for now. (6) Heart failure: Decompensated heart failure with reduced ejection fraction. Currently on dialysis given DAXA secondary to JEANNINE. Monitor intake output charting Daily weight Monitor electrolytes, keep potassium greater than 4, magnesium greater than 2 Telemetry monitoring (7) Respiratory failure with hypoxia and hypercapnia: Resolved. Patient back to baseline oxygen supplementation. D-dimer elevated 3.4. After age-related modification within normal limits. CT chest results appreciated. Concerns for bilateral pleural effusion with possible atelectasis and mild pneumonia. Respiratory viral panel negative. Sputum culture awaited. MRSA recently negative. Given critically illness for now start patient on IV Zosyn empirically. We will try to finish a 5-day course. Continue with DuoNebs every 6 hour, budesonide twice daily. Oxygen supplementation keeping saturation over 90%. (8) Chronic hyponatremia: Acute on chronic hyponatremia. Baseline sodium seems to be around 1 28-1 30. Currently stable around 127. Continue to monitor daily. Sodium tablets have been discontinued. We will continue to monitor. (9) Hypertension: Goal blood pressure less than 140/90 mmHg. Patient states usually blood pressures have been running around 170 for many years. Reluctant to increase antihypertensives too much. States on increasing medication she becomes very sleepy and tired. Multiple antihypertensives at home. Takes clonidine 0.1 twice daily, felodipine 10 mg oral every afternoon, hydralazine 25 mg 3 times daily, Imdur 60 mg oral daily, valsartan 160 mg twice daily. For now restarting Imdur 60 mg, metoprolol 12.5 mg twice daily, hydralazine 25 mg 3 times daily. Will uptitrate accordingly. Qualifiers: Hypertension type: essential hypertension Qualified Code(s): I10 - Es sential (primary) hypertension (10) Hyperkalemia: Resolved Hold off on home dose potassium. Continue to monitor daily. (11) Coronary artery disease: Qualifiers: Coronary Disease-Associated Artery/Lesion type: [place] artery [place] vs. transplanted heart: [place] heart Associated angina: without angina Qualified Code(s): I25.10 - Atherosclerotic heart disease of [place] coronary artery without angina pectoris (12) Goals of care, counseling/discussion: (13) Anemia: Monitor H&H Transfuse to maintain hemoglobin greater than 7 Currently on IV iron. Plan DVT ppx: On subcu heparin CODE STATUS full code Continue with regular diet Protonix for PUD prophylaxis. Goals of care discussion: Given the baseline health, prolonged hospitalization complicated by non-ST elevation OH requiring left main along with DAXA secondary to JEANNINE requiring dialysis, severe protein energy malnutrition, physical deconditioning with patient being Vidya lift dependent further goals of care discussion were done again with patient's spouse, daughter at bedside. We discussed that unfortunately at this point it seems patient is either having non-ST elevation OH or type II OH given her poor EF, concern for congestive heart failure though patient seems to be dialysis dependent. We discussed that unfortunately patient will not be able to come back to her baseline health which to start with was poor as well. We discussed about quality of life versus quantity of life. Patient states she is done and she would rather be comfortable and asks her family to let go. Family and patient decided to go ahead with hospice. We did discuss that going on hospice would mean no dialysis, keeping her comfortable, continuing on active treatment if and when possible and it would mean to let nature takes its own course which eventually mean that patient would most likely . Both patient and family verbalized understanding and will go out with hospice. Case management alerted. No further blood work. Stop IV medications. Continue with oral antihypertensives. No more dialysis. Plan to discharge with hospice at home versus hospice at custodial. Attestations Medical Necessity Statement*: Requires further hospitalization while hospice is set up goals of care discussion discussed as above. Coding Level of Care Code Critical Care >/= 30 minutes Critical care time (in minutes): 60 The high probability of a clinically significant, sudden or life threatening deterioration, as referenced in this documentation, required my full and direct attention, intervention and personal management. The critical care time shown is in addition to time spent performing any reported separately billable procedures and includes the following: [x] Data and vital sign review and interpretation [x ] Patient assessment, examination and intervention [x] Medication orders and management [x] Patient/Family updates as able [x] Care Coordination and Documentation. Diagnoses NSTEMI (non-ST elevated myocardial infarction) I21.4 Left main coronary artery disease I25.10 Chronic renal insufficiency N18.9 Cardiogenic shock R57.0 Atrial fibrillation with RVR I48.91 Heart failure I50.9 Respiratory failure with hypoxia and hypercapnia J96.91; J96.92 Chronic hyponatremia E87.1 Hypertension I10 Hypertension type: essential hypertension Hyperkalemia E87.5 Coronary artery disease I25.10 Coronary Disease-Associated Artery/Lesion type: [place] artery [place] vs. transplanted heart: [place] heart Associated angina: without angina Goals of care, counseling/discussion Z71.89 Anemia D64.9
[2022-11-26] VITALS (22 sets, daily range): BP systolic 122–153; BP diastolic 44–65; PULSE 56–68; RESP 7–19; TEMP 36.5; O2SAT 13–100
[2022-11-26] MEDS: nitroglycerin 1 gm/inch oint Pkt 0.5 INCH TOPICAL ×2 (00:02→06:06)
[2022-11-26] MEDS: morphine 4 mg/mL SDV 1 mL IVP ×8 (00:24→11:28)
[2022-11-26] MEDS: pantoprazole 40 mg SDV IVP (04:48)
[2022-11-26] MEDS: heparin 5,000 unit/mL INJ 1 mL 5000 UNIT SUBCUT (06:06)
[2022-11-26] MEDS: artificial tears Op Soln 15 mL Btl 2 DROP EYE-BOTH (07:49)
--- NOTE | 2022-11-26 09:18 | P.DS_ITS ---
Discharge Providers Date of Admission: 11/08/22 16:15 Date of Discharge: November 26, 2022 Attending Provider at Admission: Doe James MD Attending Provider at Discharge: Amari Avila MD Consults: Cardiology: Dr. Ocasio/Dr. Ahumada Surgery: Dr. Lacey/Dr. Powell Telemetry nephrology Primary Care Provider: Doe Bui MD Diagnoses at Discharge Discharge Diagnosis (1) NSTEMI (non-ST elevated myocardial infarction): Status: Acute (2) Left main coronary artery disease: Status: Acute (3) Chronic renal insufficiency: Status: Acute (4) Cardiogenic shock: Status: Acute (5) Atrial fibrillation with RVR: Status: Acute (6) Heart failure: Status: Acute (7) Respiratory failure with hypoxia and hypercapnia: Status: Acute (8) Chronic hyponatremia: Status: Acute (9) Hypertension: Status: Acute Qualifiers: Hypertension type: essential hypertension Qualified Code(s): I10 - Essential (primary) hypertension (10) Hyperkalemia: Status: Acute (11) Coronary artery disease: Status: Acute Qualifiers: Associated angina: without angina Coronary Disease-Associated Artery/Lesion type: [place] artery [place] vs. transplanted heart: [place] heart Qualified Code(s): I25.10 - Atherosclerotic heart disease of [place] coronary artery without angina pectoris (12) Goals of care, counseling/discussion: Status: Acute (13) Anemia: Status: Acute Reason for Visit Reason for Visit: LOW SODIUM AT NH Brief History: History as per HPI: 11/07: Kati Chris is a 82 year old female with a past medical history significant for chronic low back pain, CAD, history of PR, hypertension, multiple recent hospitalizations, and hyponatremia who presents with acute on chronic hyponatremia.? Patient reports she was taken to the ED due to lab values.? She endorses associated symptoms of diffuse fatigue, malaise, severe lower extremity edema, and weakness.? Reports chronic back pain.? Denies seizures or abnormal movements.? Denies other alleviating or aggravating factors. Patient has a history of chronic hyponatremia with recent admission. Per ED provider report, the patient was taken off her Lasix and salt tabs by correction recently for unclear reasons. Hospital Course Hospital Course Patient had a long and complicated hospitalization. She was initially admitted with concerns for acute on chronic hyponatremia secondary to hypervolemia. She was started on IV diuresis after which her sodium levels very gradually improved. At first she responded well to the treatment for hyponatremia and IV diuretics and was back to her baseline health and was being ready to be discharged but on the day of discharge patient complained of chest pain along with acute diaphoresis for which she was found to have non-ST elevation PR leading to cardiogenic shock and congestive heart failure for which she was moved to ICU. She was started on treatment with vasopressors, heparin drip and IV diuretics. Repeat echocardiogram was done which showed an EF of 28% with dilated LV cavity, moderately increased LA size, mild MR with concerns for significant drop in ejection fraction from an echocardiogram a week ago. Given poor baseline health, severe physical deconditioning, poor morning of mentation, severity of illness during present hospitalization multiple goals of care discussions were done with patient, her DPOA/spouse and daughter at bedside many times during hospitalization. Patient verbalized understanding of the critical nature of her illness and was willing to go ahead with any procedures needed to get her better. Eventually on 11/14 she underwent cardiac angiogram in which she was found to have severe left main coronary artery stenosis confirmed with IFR value of 0.66 and elevated LVEDP. Post angiogram patient was brought back to the ICU. During hospitalization patient continued to have frequent episodes of congestive heart failure, delirium, cardiogenic shock for which she was on and off on vasopressors. She also developed atrial fibrillation during hospitalization, she was started on amiodarone drip after which her heart rate stabilized. Further goals of care discussions were done regarding new finding of severity of illness and cardiac angiogram. Option discussed about hospice versus revascularization. We discussed that patient was found to have significant left main disease.? We discussed that for PCI to left main given her overall cardiac status and baseline health it would be at a higher risk.? We discussed that there is a chance of on table mortality. We discussed possible need of balloon pump/Impella, concomitant high risk of lower limb ischemia, possibility of developing cardiogenic shock requiring Levophed or respiratory failure requiring mechanical ventilator with a high chance of renal failure requiring dialysis hemodialysis versus CRRT.? Patient verbalized understanding.? She states living on hospice is No Life.? If there is a chance she will take it.? She wants to go ahead with trial of revascularization.? Eventually patient underwent revascularization to left main coronary artery. Postprocedure patient developed JEANNINE for which nephrology was consulted and patient became dialysis dependent. Patient's mentation continued to worsen with episodes of somnolence. For continued dialysis as an outpatient tunneled catheter was placed on 11/23. On the evening of 11/24 patient had 1 more episode of diaphoresis along with nausea and difficulty breathing for which repeat troponins were done and was found to be elevated with concerns for congestive heart failure. Repeat goals of care discussions were done with the patient and her family at bedside. It was discussed that patient most likely is having recurrence of congestive heart failure versus non-ST elevation PR versus type II PR. Repeat goals of care discussions were done This time we discussed that, given the baseline health, prolonged hospitalization complicated by non-ST elevation PR requiring left main along with DAXA secondary to JEANNINE requiring dialysis, severe protein energy malnutrition, physical deconditioning with patient being Vidya lift dependent further goals of care discussion were done again with patient's spouse, daughter at bedside. We discussed that unfortunately at this point it seems patient is either having non-ST elevation PR or type II PR given her poor EF, concern for congestive heart failure though patient seems to be dialysis dependent.? We discussed that unfortunately patient will not be able to come back to her baseline health which to start with was poor as well.? We discussed about quality of life versus quantity of life. Patient states she is done and she would rather be comfortable and asks her family to let go.? Family and patient decided to go ahead with hospice. Eventually hospice was set up. Patient is being discharged home with hospice and comfortable condition. Physical Exam Narrative: Deferred given hospice status. Complaining of pain for which she is getting morphine. Family at bedside. Urinary Catheter Management: Lim: Cath Placed During This Visit: yes, but has since been removed by the nurse Reason for Continuing Indwelling Catheter: Accurate Measurement of Urinary Output in Critically Ill Patients Urinary Catheter Date of Insertion: 11/07/22 Urinary Catheter Time of Insertion: 19:00 Date Urinary Catheter Removed: 11/21/22 Time Urinary Catheter Discontinued: 14:00 Lim Latex: Cath Placed During This Visit: yes Reason for Continuing Indwelling Catheter: Hospice/Comfort/Palliative Care Urinary Catheter Date of Insertion: 11/25/22 Urinary Catheter Time of Insertion: 18:45 Discharge Data Studies Completed and Pending Completed Studies During Hospitalization Category Date Time Status CT chest wo con [id number] Stat Cat Scan 11/10/22 18:12 Completed HARNESS PULLER request for service Routine Exams 11/14/22 08:03 Completed HARNESS PULLER request for service Routine Exams 11/15/22 08:18 Completed CXRP [XR chest 1V portable [id number]] Stat Exams 11/23/22 13:52 Completed XR chest 1V [id number] Stat Exams 11/10/22 11:11 Completed XR chest 1V portable [id number] Routine Exams 11/20/22 08:25 Completed CV. echo limited [id number] Routine Ultrasound 11/10/22 17:41 Completed US renal BI* [id number] Routine Ultrasound 11/18/22 05:45 Completed Pending at discharge Category Date Time Status Sputum Culture and Gram Stain Stat Lab 11/25/22 04:10 Results Radiology Impressions Chest CT 11/10/22 18:12 IMPRESSION: 1. Moderate increase in size of the multifocal areas of dense and scattered opacifications and tree-in-bud airspace disease. 2. Small but increasing bilateral pleural effusions with compressive atelectasis. 3. Marked cardiomegaly. Renal Ultrasound 11/18/22 05:45 IMPRESSION: 1. Extremely limited evaluation of the kidneys. 2. Low normal size RIGHT kidney with no hydronephrosis. 3. Poorly visualized LEFT kidney. Incomplete evaluation. Chest X-Ray 11/23/22 13:52 IMPRESSION: 1. Interval placement LEFT subclavian dialysis catheter. 2. Increase fluid overload and LEFT pleural effusion with marked LEFT apical capping and LEFT paratracheal soft tissue with displacement. With recent dialysis catheter placement possibility of ongoing bleeding should be considered. May all be simply progressive fluid overload from edema. Notified Denita Powell MD at 11/23/2022 2:11 PM. Echocardiogram: CONCLUSIONS ?Diffuse hypokinesia of the left ventricle with a diminished ?ejection fraction of around 28%. ?? Mildly dilated LV cavity. ?Moderately increased left atrial size. ?Mildly increased right atrial size. ?Thickened mitral valve. Mild mitral valve regurgitation. ?Thickened? and stenotic aortic valve. ?There is no pericardial effusion. ?There are no intracardiac masses. ?Technically somewhat difficult study ?Compared to the study from 10/30/2022, there is significant drop ?in the LV ejection fraction ?Dr Brian Ocasio MD FAC ?(Electronically Signed) ?Final Date:? ? ? 11 Nov 2022 10:11 Laboratory Results WBC 14.3 10^3/uL (4.0-10.0) H 11/25/22 02:23 Corrected WBC Cancelled 11/12/22 06:00 RBC 2.77 10^6/uL (4.1-5.3) L 11/25/22 02:23 Hgb 8.5 g/dL (11.5-15.3) L 11/25/22 02:23 Hct 28.1 % (37.0-47.0) L 11/25/22 02:23 MCV 101.4 fl (81-99) H 11/25/22 02:23 MCH 30.7 pg (28.0-34.0) 11/25/22 02: MCHC 30.2 g/dL (30.0-36.0) 11/25/22 02: RDW 18.2 % (12.1-15.1) H 11/25/22 02:23 Plt Count 452 10^3/cmm (130-400) H 11/25/22 02:23 MPV 10.5 fL (7.4-10.4) H 11/25/22 02:23 Gran % Cancelled 11/12/22 06:00 Neut % (Auto) 88.8 % 11/25/22 02:23 Lymph % (Auto) 4.1 % 11/25/22 02:23 [place] % (Auto) 5.3 % 11/25/22 02:23 Eos % (Auto) 0.0 % 11/25/22 02:23 Baso % (Auto) 0.1 % 11/25/22 02:23 Reticulocyte % (Auto) 5.6 % (0.5-2.0) H 11/23/22 02:56 Neut # (Auto) 12.66 10^3/uL (1.8-7.7) H 11/25/22 02:23 Lymph # (Auto) 0.6 10^3/uL (0.8-4.8) L 11/25/22 02:23 [place] # (Auto) 0.8 10^3/uL (0.2-0.9) 11/25/22 02:23 Eos # (Auto) 0.0 10^3/uL (0.0-0.8) 11/25/22 02:23 Baso # (Auto) 0.0 10^3/uL (0.0-0.1) 11/25/22 02:23 Absolute Gran (auto) Cancelled 11/12/22 06:00 Nucleated RBC % (auto) 0.4 % 11/25/22 02:23 Nucleated RBCs # 0.1 /100WBC 11/25/22 02:23 PT 15.00 SECONDS (12.1-14.9) H 11/22/22 07:28 INR 1.14 (0.8-1.2) 11/22/22 07:28 APTT 43.6 SECONDS (23.9-36.7) H 11/22/22 07:28 D-Dimer 3.81 ug/mIFEU (0-0.59) H 11/10/22 11:40 Specimen Type Arterial 11/16/22 10:25 Sample Site Radial, right 11/16/22 10:25 ABG pH 7.41 (7.35-7.45) 11/16/22 10:25 ABG pCO2 47.1 mmHg (35-45) H 11/16/22 10:25 ABG pO2 92.4 mmHg (80.0-100.0) 11/16/22 10:25 ABG HCO3 29.5 mmol/L (22-26) H 11/16/22 10:25 ABG O2 Saturation 98.6 11/16/22 10:25 ABG Base Excess 4.3 mmol/L (-2.0-2.0) H 11/16/22 10:25 [place] Test Pos 11/16/22 10:25 A-a O2 Gradient 8.2 mmHg (5-10) 11/16/22 10:25 Hematocrit 24.5 % (37-47) L 11/16/22 10:25 Hgb O2 Saturation 97.0 % (95-100) 11/16/22 10:25 Carboxyhemoglobin 1.3 %THgb (0.4-20.1) 11/16/22 10:25 Methemoglobin 0.3 % (0.4-1.5) L 11/16/22 10:25 Total Hemoglobin 8.0 g/dL (12-16) L 11/16/22 10:25 Sodium 127.0 mmol/L (131-143) L 11/16/22 10:25 Potassium 3.7 mmol/L (3.5-5.0) 11/16/22 10:25 Glucose 100.0 mg/dL (70-115) 11/16/22 10:25 Ionized Calcium 1.1 mmol/L (1.1-1.4) 11/16/22 10:25 O2 Delivery Device Bipap 11/16/22 10:25 O2 Liters/Min 4.0 % 11/10/22 11:30 FiO2 30.0 % 11/16/22 10:25 PEEP 10.0 cmH20 11/16/22 10:25 Poultry Farmworker ID Gd 11/16/22 10:25 Sodium 134 mmol/L (136-145) L 11/25/22 02:23 Potassium 4.0 mmol/L (3.5-5.1) 11/25/22 02:23 Chloride 94 mmol/L (98-107) L 11/25/22 02:23 Carbon Dioxide 24 mmol/L (22-29) 11/25/22 02:23 Anion Gap 20.0 (5-19) H 11/25/22 02:23 BUN 23 mg/dL (8-23) 11/25/22 02:23 Creatinine 1.7 mg/dL (0.5-0.9) H 11/25/22 02:23 GFR Calculation Not Reportable 11/25/22 02:23 Glucose 98 mg/dL (65-115) 11/25/22 02:23 POC Glucose 107 mg/dL (70-110) 11/19/22 12:29 Calculated Osmolality 282 mOsm/kg (285-295) L 11/25/22 02:23 Calcium 8.2 mg/dL (8.5-10.5) L 11/25/22 02:23 Phosphorus 3.0 mg/dL (2.5-4.5) 11/22/22 07:28 Magnesium 2.8 mg/dL (1.7-2.3) H 11/22/22 07:28 Iron 17 ug/dL (37-145) L 11/19/22 07:50 TIBC 123 mcg/dl 11/19/22 07:50 % Saturation 13.8 % (20-50) L 11/19/22 07:50 Unsat Iron Binding 106 ug/dL (112-347) L 11/19/22 07:50 Ferritin 317 ng/mL (15-150) H 11/19/22 07:50 Total Bilirubin 0.3 mg/dL (0.15-1.2) 11/25/22 02:23 AST 22 U/L (0-32) 11/25/22 02:23 ALT 7 U/L (0-33) 11/25/22 02:23 Alkaline Phosphatase 100 U/L (35-105) 11/25/22 02:23 Troponin T Gen 5 ng/L Cancelled 11/10/22 11:11 Troponin T Baseline 849 ng/L (0-10) H* 11/24/22 20:26 Troponin T 120 Minute 832.5 ng/L (0-10) H 11/24/22 22:14 Delta Troponin T -16.5 ABS# (0-10) L 11/24/22 22:14 Troponin T Hi Sens 6Hr 855.9 ng/L (0-10) H 11/25/22 02:23 Troponin T Hi Sens 6Hr Delta 6.9 ng/L (0-12) 11/25/22 02:23 C-Reactive Protein 94.3 mg/L (0.0-4.9) H 11/10/22 18:19 NT-Pro-B Natriuret Pep 6241 pg/mL (0-450) H 11/07/22 11:55 Total Protein 6.3 g/dL (6.6-8.7) L 11/25/22 02:23 Albumin 2.9 g/dL (3.5-5.2) L 11/25/22 02:23 Globulin 3.4 g/dL (1.3-4.6) 11/25/22 02:23 TSH 2.36 uIU/mL (0.27-4.20) 11/23/22 02:56 Free T4 1.21 ng/dL (0.82-1.77) 11/23/22 02:56 Random Cortisol 17.33 ug/dL (2.47-19.5) 11/23/22 02:56 Urine Color Colorless (Yellow) 11/07/22 19:40 Urine Appearance Clear (CLEAR) 11/07/22 19:40 Urine pH 7 (5-7) 11/07/22 19:40 Ur Specific Fellows 1.000 (1.005-1.030) L 11/07/22 19:40 Urine Protein Neg (Negative) 11/07/22 19:40 Urine Glucose (UA) Norm (Normal) 11/07/22 19:40 Urine Ketones Negative (Negative) 11/07/22 19:40 Urine Blood Neg (Negative) 11/07/22 19:40 Urine Nitrate Negative (Negative) 11/07/22 19:40 Urine Bilirubin Neg (Negative) 11/07/22 19:40 Urine Urobilinogen Norm mg/dL (Negative) 11/07/22 19:40 Ur Leukocyte Esterase Negative (Negative) 11/07/22 19:40 Urine RBC None /hpf (0-2) 11/07/22 14:48 Urine WBC 5-10 /hpf (0-5) H 11/07/22 14:48 Ur Squamous Epith Cells 5-10 /hpf (0-5) H 11/07/22 14:48 Amorphous Sediment Not Reportable 11/07/22 14:48 Urine Bacteria Trace /hpf (NONE) 11/07/22 14:48 Ur Random Sodium < 10 mmol/L 11/12/22 14:05 Ur Random Potassium 49 mmol/L 11/12/22 14:05 Ur Random Chloride < 10 mmol/L 11/12/22 14:05 Ur Random Urea Nitrogn 244 mg/dL 11/07/22 14:48 Urine Creatinine 44 mg/dL (28-217) 11/07/22 14:48 Nasal Influ A H1 2008 PCR Not detected (NOT DETECT) 11/11/22 06:22 Adenovirus (PCR) Not detected (NOT DETECT) 11/11/22 06:22 C. pneumoniae DNA (PCR) Not detected (NOT DETECT) 11/11/22 06:22 Coronavirus 229E (PCR) Not detected (NOT DETECT) 11/11/22 06:22 Hep Bs Antigen Non-reactive (Nonreactive) 11/17/22 05:13 Hep Bs Antibody > 1000.0 (11.5-1000) H 11/17/22 05:13 Hepatitis C Antibody Non-reactive (Nonreactive) 11/17/22 05:13 Human Metapneumovir PCR Not detected (NOT DETECT) 11/11/22 06:22 Influenza A (H1) PCR Not detected (NOT DETECT) 11/11/22 06:22 Influenza A (H3) PCR Not detected (NOT DETECT) 11/11/22 06:22 Influenza Type A (PCR) Not detected (NOT DETECT) 11/11/22 06:22 Influenza Type B (PCR) Not detected (NOT DETECT) 11/11/22 06:22 M. pneumoniae (PCR) Not detected (NOT DETECT) 11/11/22 06:22 Parainfluenza 1 (PCR) Not detected (NOT DETECT) 11/11/22 06:22 Parainfluenza 2 (PCR) Not detected (NOT DETECT) 11/11/22 06:22 Parainfluenza 3 (PCR) Not detected (NOT DETECT) 11/11/22 06:22 Parainfluenza 4 (PCR) Not detected (NOT DETECT) 11/11/22 06:22 RSV Type A (PCR) Not detected (NOT DETECT) 11/11/22 06:22 RSV Type B (PCR) Not detected (NOT DETECT) 11/11/22 06:22 Entero/Rhino (PCR) Not detected (NOT DETECT) 11/11/22 06:22 SARS-CoV-2 (PCR) Not detected (NOT DETECT) 11/11/22 06:22 Blood Type A Positive 11/23/22 08:15 Rho(D) Type Positive 11/23/22 08:15 Antibody Screen Negative 11/23/22 08:15 Crossmatch See Detail 11/23/22 08:15 Procedures Performed Cardiac angiogram: 11/14: Conclusions ? 1. Severe multivessel CAD including severe ? 2. left main artery stenosis ? 3. , LIGHT ADJUSTER of RCA ? 4. , moderate LAD and left circumflex artery stenosis.. Recommendations ? * We will have discussion with patient and family regarding different options including high risk PCI of left main artery versus medical therapy versus hospice.? Patient is not a good surgical candidate and patient also does not want to have surgery. Based on family conference, further plan will be formulated.. ? * Continue dual antiplatelet therapy with aspirin and Plavix. ? * High intensity statin therapy. Revascularization: 11/15: Interventional Findings ? * Procedure detail: Initial plan was to perform high risk PCI of left main artery with LV support. Bilateral common femoral artery access was obtained. Wire had difficulty crossing into mid abdominal aorta. Using Glidewire we crossed this area and a pigtail was used to obtain abdominal aortogram. Mid abdominal aorta had hazy looking stenosis.? Patient also had significant scoliosis and abdominal aortic tortuosity. Decision was made to proceed with PCI without LV support. We engaged left main artery with XB 3.5 guide catheter.? IV heparin was administered to maintain anticoagulation. 0.014 run-through guidewire was used to cross left main artery stenosis and was put in distal LAD. We used IVUS to size the vessel. This was followed by balloon angioplasty with 3.0 x 8 mm semicompliant balloon. We then placed a 3.5 x 12 mm resolute Roland drug-eluting stent. IVUS was again performed that showed ostium was still uncovered with stent. Cranial views confirmed it. We placed a second overlapping 4.0 x 8 mm resolute Roland drug-eluting stent. Stents were postdilated with a 4.0 x 8 mm NC balloon. Final angiogram was performed that showed excellent stent expansion, no residual stenosis and NADEEM-3 flow. Guidewire and guide catheter were removed. Patient left the Entertainment [facility] in a stable condition.. ? * Left Main to Left Main:? 70% stenosis treated with a MDT R ROLAND 4.0X08 EDUARDO, and MDT NC EUPHORA RX [id number] BALLOON. 0% residual stenosis, NADEEM: 3 flow. ? * Left Main:? 70% stenosis treated with a AB TREK 3.00X08 RX BALLOON, MDT R ROLAND 3.5X12 EDUARDO, and MDT NC EUPHORA RX [id number] BALLOON. 0% residual stenosis, NADEEM: 3 flow. Conclusions ? 1. Severe left main artery stenosis s/p successful revascularization with EDUARDO x2. ? 2. Left Main to Left Main was treated with a Drug Eluting Stent, and Balloon. ? 3. Left Main was treated with a Balloon, Drug Eluting Stent, and Balloon. Recommendations ? * Dual antiplatelet therapy with aspirin and Plavix for at least 1 year. ? * Transfer back to ICU. ? * High intensity statin therapy. ? * Outpatient cardiology follow-up in 4 weeks. 11/24: Tunneled catheter placement Vitals Last Vital Signs Temp 97.7 F 11/26/22 04:00 Pulse 64 11/26/22 08:00 Resp 19 H 11/26/22 09:02 BP 151/64 11/26/22 05:52 Pulse Ox 13 L 11/26/22 09:02 O2 Del Method Nasal Cannula 11/26/22 08:00 O2 Flow Rate 2 11/26/22 08:00 FiO2 30 11/18/22 16:00 Discharge Plan Discharge Patient Disposition: Hospice - Home Condition: Stable Prescriptions: Continued lactulose 10 gram/15 mL (15 mL) solution 10 g PO DAILY PRN (Reason: constipation) Qty: 473 1RF ondansetron HCl 4 mg tablet 4 mg PO Q6H PRN (Reason: nausea and vomiting) Qty: 30 3RF hydrocodone-acetaminophen 10-325 mg tablet 1 tab PO Q4H PRN (Reason: Pain) 30 Days Qty: 180 0RF tamsulosin 0.4 mg capsule 0.4 mg PO BID felodipine 10 mg tablet extended release 24 hr 10 mg PO DAILY@08 gabapentin 100 mg capsule 100 mg PO BID albuterol sulfate 90 mcg/actuation HFA aerosol inhaler 1 inh inhalation Q6H PRN (Reason: shortness of breath or wheezing) Qty: 8.5 0RF benzonatate 100 mg Capsule 100 mg PO TID PRN (Reason: Cough) hydralazine 25 mg Tablet 25 mg PO TID Qty: 90 3RF clonidine HCl 0.1 mg tablet 0.1 mg PO BID Qty: 60 0RF Rx Instructions: start date 11/03/22 end date 11/17/22 Tylenol 325 mg Tablet 650 mg PO Q6H PRN (Reason: Pain) Milk of Magnesia 400 mg/5 mL Suspension 30 ml PO .EVERY 72 HOURS PRN (Reason: if no bm in 3 days *do not give to renal pts*) Dulcolax (bisacodyl) 10 mg Suppository 10 mg NH DAILY PRN (Reason: Constipation) Rx Instructions: give rectally if cant take po if no results from mom Fleet Enema 19-7 gram/118 mL Enema 118 ml NH DAILY PRN (Reason: Constipation) Rx Instructions: give if no results from mom and dulcolax Dulcolax (bisacodyl) 5 mg Tablet,Delayed Release (Dr/Ec) 10 mg PO DAILY PRN (Reason: Constipation) Rx Instructions: give if no results from mom furosemide 20 mg Tablet 20 mg PO DAILY@08 Calmoseptine 0.44-20.6 % ointment See Rx Instructions .ROUTE .COMPLEX Rx Instructions: as directed topically every shift, gluteal fold isosorbide mononitrate 60 mg tablet extended release 24 hr 60 mg PO DAILY@08 levothyroxine 88 mcg tablet 88 mcg PO DAILY@05 Klor-Con M20 20 mEq tablet,ER particles/crystals 20 meq PO DAILY@08 magnesium oxide 400 mg (241.3 mg magnesium) tablet 400 mg PO BID valsartan 160 mg tablet 160 mg PO BID Discharge Orders: Discharge Order (Routine); Ordered 11/26/22 Ordered By: Amari Avila Referrals: [facility] [Outside] Discharge Diet: Advance as tolerated Patient Instructions: Hospice Care, Coronary Angioplasty (DC), CHF Stoplight, Opioid Safety Activity Restrictions/Additional Instructions: Home hospice Discharge Attestations Time Spent in Discharge Care*: greater than 30 min Specific Discharge Activities: educating patient, educating and/or supporting family/caregiver, discussing with pcp/other providers, discussing with test case developer/social workers/dc planners, documenting/other paperwork and evaluating patient/reviewing data Status at Discharge: Cognitive status at discharge: moderately impaired cognition , Behavioral status at discharge: cooperative , Functional status at discharge: bed bound , Overall status at discharge: patient has a new baseline Quality Metrics Clinical Quality Measures [ Acute Myocardial Infaction { Clinical Trial Participant: No; Contraindication to aspirin: None; Aspirin prescribed; Contraindication to statin: None; Statin prescribed; Contraindication to PCI: None; PCI performed;}] Coding Level of Care Code 78826 Total time (in minutes) for Discharge: 70 Diagnoses NSTEMI (non-ST elevated myocardial infarction) I21.4 Left main coronary artery disease I25.10 Chronic renal insufficiency N18.9 Cardiogenic shock R57.0 Atrial fibrillation with RVR I48.91 Heart failure I50.9 Respiratory failure with hypoxia and hypercapnia J96.91; J96.92 Chronic hyponatremia E87.1 Hypertension I10 Hypertension type: essential hypertension Hyperkalemia E87.5 Coronary artery disease I25.10 Associated angina: without angina Coronary Disease-Associated Artery/Lesion type: [place] artery [place] vs. transplanted heart: [place] heart Goals of care, counseling/discussion Z71.89 Anemia D64.9
--- NOTE | 2022-11-26 12:37 | PC.NURSE ---
Patient discharged to home with hosp[facility] care [facility]. [facility] ambulance 9 transported patient home, [facility] has been called by case management to meet them at home. IVs removed, patient signature form signed by .
== END 2022-11-26 12:38 | disposition hospice, home (50) | DRG 246 ==
LOC: ER 15:26 → MEDSURG 15:56 → CSU 16:09 → ICU 11-11 00:12
PROVIDERS: Internal Medicine; Internal Medicine Cardiovascular Disease; Student in an Organized Health Care Education/Training Program; Surgery; Admitting Provider Internal Medicine; Emergency Provider Emergency Medicine; PCP Family Medicine; Visit Provider Student in an Organized Health Care Education/Training Program
PROC: 4A023N7 Measurement of Cardiac Sampling and Pressure, Left Heart, Percutaneous Approach (ICD-10-PCS; principal; 2022-11-14 08:00)
PROC: 027035Z Dilation of Coronary Artery, One Artery with Two Drug-eluting Intraluminal Devices, Percutaneous Approach (ICD-10-PCS; principal; 2022-11-15 08:30)
PROC: 0JH63XZ Insertion of Tunneled Vascular Access Device into Chest Subcutaneous Tissue and Fascia, Percutaneous Approach (ICD-10-PCS; principal; 2022-11-23 07:40)
DX: I13.0 Hypertensive heart and chronic kidney disease with heart failure and stage 1 through stage 4 chronic kidney disease, or unspecified chronic kidney disease (principal); E43 Unspecified severe protein-calorie malnutrition; I21.4 Non-ST elevation (NSTEMI) myocardial infarction; I50.43 Acute on chronic combined systolic (congestive) and diastolic (congestive) heart failure; R57.0 Cardiogenic shock; J96.22 Acute and chronic respiratory failure with hypercapnia; J96.21 Acute and chronic respiratory failure with hypoxia; E87.1 Hypo-osmolality and hyponatremia; N17.9 Acute kidney failure, unspecified; N18.9 Chronic kidney disease, unspecified; G89.29 Other chronic pain; I25.10 Atherosclerotic heart disease of native coronary artery without angina pectoris; I25.2 Old myocardial infarction; E86.1 Hypovolemia; I34.0 Nonrheumatic mitral (valve) insufficiency; R41.0 Disorientation, unspecified; I48.91 Unspecified atrial fibrillation; N14.11 Contrast-induced nephropathy; T50.8X5A Adverse effect of diagnostic agents, initial encounter; Z51.5 Encounter for palliative care; Z79.891 Long term (current) use of opiate analgesic; Z87.01 Personal history of pneumonia (recurrent); M48.062 Spinal stenosis, lumbar region with neurogenic claudication; E87.6 Hypokalemia; I16.0 Hypertensive urgency; F41.9 Anxiety disorder, unspecified; E03.9 Hypothyroidism, unspecified; K59.00 Constipation, unspecified; I25.5 Ischemic cardiomyopathy; D64.9 Anemia, unspecified
CPT/HCPCS: 12345; 36415; 36416; 36430; 36600; 51702; 71045; 71250; 75625; 76770; 77001; 80048; 80051; 80053; 81001; 81015; 82330; 82436; 82533; 82575; 82728; 82805; 82962; 83540; 83550; 83735; 83880; 84100; 84133; 84295; 84300; 84439; 84443; 84484; 84540; 85014; 85018; 85025; 85045; 85347; 85378; 85610; 85730; 86140; 86706; 86803; 86850; 86900; 86920; 87070; 87077; 87186; 87205; 87340; 87486; 87581; 87633; 90935; 92978; 93005; 93308; 93458; 93571; 94640; 94660; 96361; 96372; 96374; 96376; 97110; 97161; 97167; 97530; 97535; 99152; 99153; 99285; C1725; C1750; C1753; C1769; C1874; C1887; C1894; C9113; C9600; G0378; J0282; J0690; J1644; J1650; J1756; J1940; J2250; J2270; J2370; J2405; J2543; J2704; J3010; J3490; J7030; J7040; J7060; J7626; P9016; P9046; Q3014; Q4081; Q9967